=== PATIENT | female | born 1960 | race Caucasian/White ===

== ENCOUNTER 2023-06-22 12:46 | Outpatient (OUT) | payer MEDICARE, SELFPAY ==
--- NOTE | 2023-06-22 15:22 | PM.CN ---
Consult Note: HPI Data of Consult Patient: new to practice Consult date: 06/22/23 Requesting Physician: Chikis May MD Primary Care Provider: Shaikh Reyes MD Consult Narrative Reason for consult: left neck and shoulder pain, left arm pain Narrative: buddy 63yof who presents for evaluation. worsening pain throughout left neck and shoulder, will radiate down left arm. also occasionally on right side. has had shoulder injection recently, which did not provide relief. has undergone >6 weeks of provider directed home exercises, with no relief. currently taking oyxcodone 5mg bid prn, which does help. denies adverse medication side effects. cc:: CC: Chikis May MD Review of Systems ROS Status of ROS 10 or more systems reviewed and unremarkable except as noted in history and below Meds Home Medications and Allergies Home Medications Medication Instructions Recorded Confirmed Type acetaminophen 325 mg tablet 650 mg PO Q6H PRN pain 06/22/23 06/22/23 History (Tylenol) nabumetone 500 mg tablet 500 mg PO BID 06/22/23 06/22/23 History oxycodone 5 mg capsule 5 mg PO BID 06/22/23 06/22/23 History Allergies Allergy/AdvReac Type Severity Reaction Status Date / Time aspirin Allergy Mild unkown Verified 06/22/23 13:31 Exam Narrative Exam Narrative: Psych-alert and oriented x 3.? Attentive and appropriate, constitutionally normal, displays normal mood and affect per situation.? There are no obvious deficits in memory, reasoning, or intellect.? Skin-no obvious rashes, bruising, or erythema noted to the patient's area of pain. Extremities-upper extremities are warm with minimal edema and palpable pulses. Cervical- tenderness to palpation noted in the cervical spine and paraspinal musculature.? Pain is elicited with extension, and lateral rotation of the cervical spine.? Range of motion is slightly diminished due to pain. Facet loading maneuvers are positive bilaterally.? Coordination remains intact.? Gait remains non-antalgic. Assessment and Plan Assessment and Plan (1) Left shoulder pain: (2) Cervicalgia: Plan buddy 63yof who presents for evaluation. failed conservative measures, as noted. given failure to respond to shoulder injection, suspect that she may have cervical spine pathology that is contributing. will have her undergo cervical XR. she is in agreement. medications reviewed. will add gabapentin 300mg tid to her regimen. she expressed understanding. follow up after imaging complete.
== END 2023-06-22 12:47 | disposition home or self-care (01) ==
LOC: PM 12:46
PROVIDERS: PCP Internal Medicine; Visit Provider Anesthesiology
DX: M47.812 Spondylosis without myelopathy or radiculopathy, cervical region (principal); M54.2 Cervicalgia; M25.512 Pain in left shoulder
CPT/HCPCS: 72050; G0463

== ENCOUNTER 2023-06-22 14:17 | Outpatient (OUT) | payer MEDICARE, SELFPAY ==
--- NOTE | 2023-06-22 14:33 | XR_ITS ---
The [place] [id number] Patient Name: BLANCA BUTLER MRN: [id number] date: 1960 Sex: F Assigned Patient Location: [facility] Current Patient Location: Accession/Order Number: [id number] Exam Date: 06/22/2023 14:40 Report Date: 06/23/2023 06:27 At the request of: DAVID WHITE Procedure: XR cervical spine 5V EXAMINATION: XR cervical spine 5V HISTORY: Cervical spondylosis ; left side neck pain COMPARISON: No relevant comparison available. FINDINGS: BONES: Reversal of normal lordotic curvature of C3-C7. Grade 1 anterolisthesis of C3 on 4. Minimal grade 1 retrolisthesis of C5 on C6. Multilevel moderate degenerative facet arthropathy and uncovertebral joint spurring resulting in bone encroachment on the neural foramen, predominantly at C5-6 and C6-7. DISC SPACES: Marked narrowing C5-6, C6-7 with posterior endplate osteophytes. PARASPINOUS: Negative. No paraspinous abnormality is seen. OTHER: Negative. XR/XR cervical spine 5V IMPRESSION: 1. Multilevel degenerative degenerative changes, greatest at C5-6, C6-7. Electronically authenticated by: SLIME CAROLINA Date: 06/23/2023 06:27
== END 2023-06-22 14:18 | disposition home or self-care (01) ==
PROVIDERS: PCP Internal Medicine; Visit Provider Anesthesiology
DX: M47.812 Spondylosis without myelopathy or radiculopathy, cervical region (principal)
CPT/HCPCS: 72050

== ENCOUNTER 2023-06-29 13:13 | Outpatient (OUT) | payer MEDICARE, SELFPAY ==
--- NOTE | 2023-06-29 14:20 | PM.CN ---
Consult Note: HPI Data of Consult Patient: known to practice within the last 3 years Consult date: 06/29/23 Requesting Physician: Chikis May MD Primary Care Provider: Shaikh Reyes MD Consult Narrative Reason for consult: Left neck and shoulder pain Narrative: Pleasant 63yof who presents for assessment. Notes persistence of pain from left neck and shoulder. Cervical imaging reviewed, which is significant for moderate to severe spondylosis at C5-6 and C6-7. Completed physical therapy and continues in provider directed home exercise program >6 weeks, with limited benefit. Has had left shoulder injection previously, with limited benefit. Started gabapentin 100mg, now up to twice daily. Denies adverse medication side effects. cc:: CC: Chikis May MD Review of Systems ROS Status of ROS 10 or more systems reviewed and unremarkable except as noted in history and below Meds Home Medications and Allergies Home Medications Medication Instructions Recorded Confirmed Type acetaminophen 325 mg tablet 650 mg PO Q6H PRN pain 06/22/23 06/22/23 History (Tylenol) nabumetone 500 mg tablet 500 mg PO BID 06/22/23 06/22/23 History oxycodone 5 mg capsule 5 mg PO BID 06/22/23 06/22/23 History TUMERIC QDAY 06/24/23 History Vitamin B-Complex QDAY 06/24/23 History alendronate 35 mg tablet 35 mg PO QWEEK 06/24/23 06/24/23 History allopurinol 100 mg tablet 100 mg PO BID 06/24/23 06/24/23 History ascorbate calcium (vitamin C) 500 500 mg PO DAILY 06/24/23 06/24/23 History mg tablet bromelains 375 mg capsule mg PO 06/24/23 History calcium carb-ergocalciferol (vit tab PO 06/24/23 History D2) 600 mg calcium-200 unit tablet carvedilol 25 mg tablet (Coreg) 25 mg PO Q12H 06/24/23 06/24/23 History cholecalciferol (vitamin D3) 50 50 mcg PO DAILY 06/24/23 06/24/23 History mcg (2,000 unit) tablet (D3 DOTS) cinnamon bark 500 mg capsule 1,000 mg PO DAILY 06/24/23 06/24/23 History (Cinnamon) coenzyme Q10 100 mg capsule (Co 200 mg PO DAILY 06/24/23 06/24/23 History Q-10) cranberry extract 500 mg capsule 500 mg PO DAILY 06/24/23 06/24/23 History diphenhydramine HCl 50 mg capsule 100 mg PO QDAY 06/24/23 06/24/23 History evening primrose oil 500 mg capsule 500 mg PO DAILY 06/24/23 06/24/23 History famotidine 20 mg tablet (Pepcid) 20 mg PO DAILY 06/24/23 06/24/23 History gabapentin 300 mg capsule 300 mg PO TID 06/24/23 06/24/23 History garlic 1,000 mg capsule (garlic 1,000 mg PO DAILY 06/24/23 06/24/23 History oil) ginkgo biloba 120 mg tablet 120 mg PO DAILY 06/24/23 06/24/23 History glucosamine sulfate 1,000 mg 1,000 mg PO DAILY 06/24/23 06/24/23 History capsule grape seed extract 50 mg capsule 100 mg PO DAILY 06/24/23 06/24/23 History green tea leaf extract 250 mg 500 mg PO QDAY 06/24/23 06/24/23 History capsule (Green Tea) hydrochlorothiazide 25 mg tablet 25 mg PO DAILY 06/24/23 06/24/23 History loratadine 10 mg capsule 10 mg PO DAILY 06/24/23 06/24/23 History losartan 100 mg tablet 100 mg PO DAILY 06/24/23 06/24/23 History melatonin 10 mg tablet 20 mg PO DAILY 06/24/23 06/24/23 History multivitamin 1 tab PO DAILY 06/24/23 06/24/23 History omega 7-ypc-jvo-fish oil 1,000 mg 2 cap PO DAILY 06/24/23 06/24/23 History (120 mg-180 mg) capsule (Fish Oil) paroxetine HCl 10 mg tablet (Paxil) 10 mg PO DAILY 06/24/23 06/24/23 History simvastatin 20 mg tablet 20 mg PO DAILY 06/24/23 06/24/23 History vitamin E 200 unit capsule 200 unit PO DAILY 06/24/23 06/24/23 History Allergies Allergy/AdvReac Type Severity Reaction Status Date / Time aspirin Allergy Mild unkown Verified 06/22/23 13:31 Exam Narrative Exam Narrative: Psych-alert and oriented x 3.? Attentive and appropriate, constitutionally normal, displays normal mood and affect per situation.? There are no obvious deficits in memory, reasoning, or intellect.? Skin-no obvious rashes, bruising, or erythema noted to the patient's area of pain. Extremities-upper extremities are warm with minimal edema and palpable pulses. Cervical- tenderness to palpation noted in the cervical spine and paraspinal musculature.? Pain is elicited with extension, and lateral rotation of the cervical spine.? Range of motion is slightly diminished due to pain. Facet loading maneuvers are positive on the left.? Coordination remains intact.? Gait remains non-antalgic. Assessment and Plan Assessment and Plan (1) Cervical spondylosis: Plan Pleasant 63yof who presents for assessment. Failed conservative measures, as noted. Imaging reviewed, as noted. Given symptoms and imaging findings, prudent to attempt diagnostic left C5-6, C6-7 medial branch blocks under fluoroscopic guidance with the intention of proceed to radiofrequency ablation. She is in agreement. Medications reviewed. Advised that she increase gabapentin 100mg to tid, given that she has no side effects. She expressed understanding. Will have her undergo another round of PT twice weekly for 4-6 weeks. Will hold off on cervical MRI for now, but may require this, given her symptoms and xr findings. Follow up after procedure complete.
== END 2023-06-29 13:14 | disposition home or self-care (01) ==
LOC: PM 13:14
PROVIDERS: PCP Internal Medicine; Visit Provider Anesthesiology
DX: M47.812 Spondylosis without myelopathy or radiculopathy, cervical region (principal)
CPT/HCPCS: G0463

== ENCOUNTER 2023-07-30 15:39 | Outpatient (OUT) | payer MEDICARE, SELFPAY ==
--- NOTE | 2023-07-30 15:54 | XR_ITS ---
The [address] [address] Patient Name: BLANCA BUTLER MRN: [id number] date: 1960 Sex: F Assigned Patient Location: [facility] Current Patient Location: Accession/Order Number: [id number] Exam Date: 07/30/2023 16:42 Report Date: 07/31/2023 10:44 At the request of: SHAIKH REYES Procedure: XR shoulder LT min 2V EXAM: XR hip RT min 2V, XR shoulder LT min 2V HISTORY: Right Hip Instability M25.351 COMPARISON: None. TECHNIQUE: AP view of the pelvis was obtained along with AP and lateral views of the right hip. 3 views of the left shoulder were obtained. FINDINGS/IMPRESSION: Pelvis and right hip: 1. There is right hip arthroplasty. 2. There is moderate left hip joint osteoarthritis. 3. There is moderate bilateral sacroiliac joint osteoarthritis. 4. Degenerative changes are seen at the lower lumbar spine. Left shoulder: 1. [id number] apposition is seen at the left glenohumeral joint with subchondral cystic changes consistent with advanced osteoarthritis. 2. High riding humeral head is seen suggestive of rotator cuff tendinopathy/tear. 3. There is subtle subchondral lucency at the superior aspect of the left humeral head. This may be correlated for possible avascular necrosis. Electronically authenticated by: OZ BRITTON Date: 07/31/2023 10:44
--- NOTE | 2023-07-30 16:30 | XR_ITS ---
The [address] [address] Patient Name: BLANCA BUTLER MRN: [id number] date: 1960 Sex: F Assigned Patient Location: [facility] Current Patient Location: Accession/Order Number: [id number] Exam Date: 07/30/2023 16:42 Report Date: 07/31/2023 10:44 At the request of: SHAIKH REYES Procedure: XR hip RT min 2V EXAM: XR hip RT min 2V, XR shoulder LT min 2V HISTORY: Right Hip Instability M25.351 COMPARISON: None. TECHNIQUE: AP view of the pelvis was obtained along with AP and lateral views of the right hip. 3 views of the left shoulder were obtained. FINDINGS/IMPRESSION: Pelvis and right hip: 1. There is right hip arthroplasty. 2. There is moderate left hip joint osteoarthritis. 3. There is moderate bilateral sacroiliac joint osteoarthritis. 4. Degenerative changes are seen at the lower lumbar spine. Left shoulder: 1. Moku-bt-jkzr apposition is seen at the left glenohumeral joint with subchondral cystic changes consistent with advanced osteoarthritis. 2. High riding humeral head is seen suggestive of rotator cuff tendinopathy/tear. 3. There is subtle subchondral lucency at the superior aspect of the left humeral head. This may be correlated for possible avascular necrosis. Electronically authenticated by: OZ BRITTON Date: 07/31/2023 10:44
== END 2023-07-30 15:40 | disposition home or self-care (01) ==
LOC: RAD 15:43
PROVIDERS: PCP Internal Medicine; Visit Provider Internal Medicine
DX: M25.351 Other instability, right hip (principal); M25.512 Pain in left shoulder; Z96.641 Presence of right artificial hip joint; M16.12 Unilateral primary osteoarthritis, left hip; M47.816 Spondylosis without myelopathy or radiculopathy, lumbar region
CPT/HCPCS: 73030; 73502

== ENCOUNTER 2023-08-20 14:21 | Outpatient (OUT) | payer MEDICARE, SELFPAY ==
--- NOTE | 2023-08-20 | MR_ITS ---
The [address] [address] Patient Name: BLANCA BUTLER MRN: [id number] date: 1960 Sex: F Assigned Patient Location: MRI Current Patient Location: MRI Accession/Order Number: [id number] Exam Date: 08/20/2023 15:26 Report Date: 08/20/2023 16:59 At the request of: SHAIKH REYES Procedure: MR shoulder LT wo con MR shoulder LT wo con, 08/20/2023 3:26 PM EST INDICATION: Left shoulder pain COMPARISON: X-ray of the left shoulder dated 07/30/2023 TECHNIQUE: Multiplanar and multisequential MR images of the left shoulder were obtained without contrast. FINDINGS: There are mild hypertrophic degenerative changes of AC joint. There is no os acromiale. No Hill-Sachs is noted. No acute fracture or dislocation is noted. The quadrilateral space and supraspinous notch are unremarkable. There is complete tear of supraspinatus and infraspinatus with retraction of tendon to the level of glenoid. The T2 prolongation within the insertional portions of subscapularis may suggest tendinosis. There is full-thickness partial width tear of superior portion of the subscapularis measuring approximately 1.2 cm. The interarticular portion of long head of biceps could not be visualized and most likely torn and retracted tendon within the bicipital canal. The teres minor is unremarkable. Significant muscle atrophy of supraspinatus infraspinatus and subscapularis is noted giving the limitation of the [id number]. The labrum and left glenohumeral joint show severe degenerative changes.. There is increased intra articular joint effusion with extension to the subacromial subdeltoid bursa. There is subcoracoid bursitis. MR/MR shoulder LT wo con IMPRESSION: Severe degenerative changes of the left glenohumeral joint. Complete tear of the supraspinatus and infraspinatus and long head of biceps. High-grade partial tear of the subscapularis. Significant atrophy of supraspinatus, infraspinatus and subscapularis. Electronically authenticated by: AMAURY BE Date: 08/20/2023 16:59
== END 2023-08-20 14:22 | disposition home or self-care (01) ==
LOC: MRI 14:21
PROVIDERS: PCP Internal Medicine; Visit Provider Internal Medicine
DX: M25.512 Pain in left shoulder (principal); M75.122 Complete rotator cuff tear or rupture of left shoulder, not specified as traumatic
CPT/HCPCS: 73221

== ENCOUNTER 2023-11-09 09:41 | Day surgery (SDC) | payer MEDICARE, SELFPAY ==
--- OUTSIDE RECORDS SUMMARY | 2023-11-09 09:45 | XMS_ITS | CCD ---
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 Name Role Phone UNKNOWN, PHYSICIAN Primary Care Unavailable UNKNOWN, PHYSICIAN Referring Unavailable HERMINIO ROBERTS Admitting Unavailable HERMINIO ROBERTS Attending Unavailable HERMINIO ROBERTS Surgeon Unavailable ME Procedure Practitioner Unavailab SHAIKH Gerson Garcia Consulting Unavailable REYES, WHITFIELD H Attending Unavailable REYES, WHITFIELD H Admitting Unavailable GIOVANIWKEZIAD, WHITFIELD H Primary Care Unavailable REYES, WHITFIELD H Attending Unavailable GIOVANIWWAD, WHITFIELD H Admitting Unavailable ZIEBBETTY, DR JOVANNI Ashraf Consulting Unavailable FAWWAD, WHITFIELD H Primary Care Unavailable REYES, WHITFIELD H Consulting Unavailable REYES, WHITFIELD H Consulting Unavailable REYES, WHITFIELD H Attending Unavailable FAWWAD, WHITFIELD H Admitting Unavailable FAWWAD, WHITFIELD H Primary Care Unavailable LUCITAD, WHITFIELD H Primary Care Unavailable ANAMARIA, DR MARIA ANTONIA Toro Admitting Unavailable WEST, DR MARIA ANTONIA Toro Consulting Unavailable WEST, DR MARIA ANTONIA Toro Attending Unavailable FAWWAD, WHITFIELD H Primary Care Unavailable WEST, DR MARIA ANTONIA Toro Attending Unavailable WEST, DR MARIA ANTONIA Toro Admitting Unavailable WEST, DR MARIA ANTONIA Toro Consulting Unavailable CAITY, DR JOVANNI Ashraf Consulting Unavailable REYES, WHITFIELD H Primary Care Unavailable WEST, DR MARIA ANTONIA Toro Attending Unavailable ANAMARIA, DR MARIA ANTONIA Toro Admitting Unavailable WEST, DR MARIA ANTONIA Toro Consulting Unavailable CAITY, DR JOVANNI Ashraf Consulting Unavailable REYES, WHITFIELD H Primary Care Unavailable WEST, DR MARIA ANTONIA Toro Attending Unavailable ANAMARIA, DR MARIA ANTONIA Toro Admitting Unavailable WEST, DR MARIA ANTONIA Toro Consulting Unavailable FAUSTINOEBBETTY, DR JOVANNI Ashraf Consulting Unavailable SHAIKH Gerson CHAMBERS Primary Care Unavailable ANAMARIA, DR MARIA ANTONIA Troo Attending Unavailable ANAMARIA, DR MARIA ANTONIA Toro Admitting Unavailable DR MARIA ANTONIA CONRAD V Consulting Unavailable SHAIKH Gerson CHAMBERS Attending Unavailable SHAIKH Gerson CHAMBERS Admitting Unavailable DR JOVANNI MILLAN Consulting Unavailable SHAIKH Gerson CHAMBERS Primary Care Unavailable SHAIKH Gerson CHAMBERS Consulting Unavailable SHAIKH CHAMBERS Attending Unavailable Allergies Allergy Classification Reported Allergen(s) Allergy Type Date of Onset Reaction(s) Facility Aspirin (1 source) Aspirin; Translations: [ASPIRIN] Drug Allergy 12-26-2020 [facility] Repository (1 source) Amino Acids Drug Allergy [facility] Repository (1 source) Aspirin Drug Allergy [facility] Repository Problems Active Problems Problem Classification Problem Date Documented Da te Episodic/Chronic Diabetes mellitus without complication (5 sources) Type 2 diabetes mellitus without complications; Translations: [TYPE 2 DM WITHOUT COMPLICATIONS] Onset: 2 Chronic Disorders of lipid metabolism (1 source) Hyperlipidemia, unspecified; Translations: [HYPERLIPIDEMIA UNSPECIFIED] Onset: 3 Chronic Essential hypertension (1 source) Essential (primary) hypertension; Translations: [ESSENTIAL PRIMARY HYPERTENSION] Onset: 3 Chronic Gout and other crystal arthropathies (4 sources) Gout, unspecified; Translations: [GOUT UNSPECIFIED] Onset: 3 Chronic Osteoarthritis (3 sources) Primary osteoarthritis, left shoulder; Translations: [Primary osteoarthritis, right shoulder] Onset: 3 Chronic Other aftercare (4 sources) Encounter for surgical aftercare following surgery on the circulatory system; Translations: [ENC SURG AFTRCARE FLW SURG CIRC SYS] Onset: 3 Episodic Other non-traumatic joint disorders (4 sources) Pain in right knee; Translations: [PAIN IN RIGHT KNEE] Onset: 3 Episodic Other non-traumatic joint disorders (1 source) Pain in left knee; Translations: [PAIN IN LEFT KNEE] Onset: 3 Episodic Other non-traumatic joint disorders (1 source) Pain in right hip; Translations: [PAIN IN RIGHT HIP] Onset: 3 Episodic Other non-traumatic joint disorders (1 source) Pain in right shoulder; Translations: [PAIN IN RIGHT SHOULDER] Onset: 3 Episodic Other non-traumatic joint disorders (1 source) Pain in left shoulder; Translations: [PAIN IN LEFT SHOULDER] Onset: 3 Episodic Phlebitis; thrombophlebitis and thromboembolism (2 sources) Phlebitis and thrombophlebitis of superficial vessels of right lower extremity; Translations: [Phlebitis and thrombophlebitis of superficial vessels of left lower extremity] Onset: 3 Episodic Residual codes; unclassified (1 source) Localized edema; Translations: [LOCALIZED EDEMA] Onset: 3 Episodic Varicose veins of lower extremity (5 sources) Varicose veins of bilateral lower extremities with pain; Translations: [VARICOSE VNS SARITHA LOW EXTREM W/PAIN] Onset: 3 Episodic Past or Other Problems Problem Classification Problem Date Documented Da te Episodic/Chronic Screening and history of mental health and substance abuse codes (4 sources) Personal history of nicotine dependence; Translations: [PERSONAL HISTORY OF NICOTINE DEPEND] Onset: 07-21-2022 Episodic Results Test Name Value Interpretation Reference Range Facility VC CONSULT FOLLOWUPon 2022 VC CONSULT FOLLOWUP Patient: BLANCA ENRIQUEZ Exam Date: 03/03/2023 : 1960 Gender:F Ordering : DR MARIA ANTONIA CONRAD M.D. Admission #: [id number] Family : Order #: [id number] CLICK HERE TO VIEW EXAM RADIOLOGY REPORT PROCEDURE: VEIN CENTER CONSULTATION FOLLOWUP VEIN CENTER - OFFICE VISIT FOLLOW UP COMPARISON: VC CONSULT FOLLOWUP, 02/09/2023. PROGRESS NOTES: The patient reports no significant problems following intravenous laser ablation of the right great saphenous vein. The patient did not require oral analgesics. The patient did wear her compression stockings. The patient has followed our recommendations to walk 20-30 minutes once or twice per day since the procedure. The patient reports some mild improvement in her initial presenting symptoms. The patient would like to advance to micro foam chemical ablation of incompetent varicose veins this time. Review of the ultrasound performed the same day demonstrates occlusive thrombus extending throughout the treated right great saphenous vein with heat induced thrombus 1.5 cm from the saphenofemoral junction. No deep vein thrombus. The patient expressed a desire to proceed with treatment of incompetent varicose veins with micro foam chemical ablation. The patient would not like intravenous laser ablation of the right small or left anterior accessory saphenous vein at this time. IMPRESSION: 1. Successful ablation of the right great saphenous vein 2. Persistent incompetent bilateral varicose veins PLAN: Micro foam chemical ablation left leg incompetent varicose veins Nurse notes, history and physical were reviewed and confirmed, see attached forms. The nurse was present throughout the physical exam and consultation Dictated by: Maria Antonia Conrad MD on 03/03/2023 at 13:44 Approved by: Maria Antonia Conrad MD on 03/03/2023 at 13:46 Normal [facility] VC EXT VENOUS RT LIMITEDon 0 03-03-2023 VC EXT VENOUS RT LIMITED Patient: BLANCA ENRIQUEZ. Exam Date: 03/03/2023 : 1960 Gender:F Ordering : DR MARIA ANTONIA CONRAD M.D. Admission #: [id number] Family : Order #: [id number] CLICK HERE TO VIEW EXAM RADIOLOGY REPORT PROCEDURE: VEIN CENTER EXTREMITY VENOUS RIGHT LIMITED COMPARISON: None. INDICATIONS: Phlebitis of superficial veins of lower extremity I80.01 TECHNIQUE: Lower extremity huddleston scale and Duplex Doppler evaluation of the deep venous system from the inguinal ligament through the calf veins. FINDINGS: REGION: Right lower extremity. THROMBI: Negative for DVT. Heat induced thrombus visualized 1.5 cm from the SFJ. The heat induced thrombus extends from groin to proximal calf. COMPRESSIBILITY: Non-compressible segments corresponding to thrombus. FLOW: Absent flow corresponding to thrombus OTHER: *Exam performed in accordance with [facility] practice guidelines- Peripheral venous ultrasound, December 29, 2009. CONCLUSION: Post ablation occlusion the right great saphenous vein with heat induced thrombus 1.5 cm from the saphenofemoral junction Dictated by: Maria Antonia Conrad MD on 03/03/2023 at 13:09 Approved by: Maria Antonia Conrad MD on 03/03/2023 at 13:10 Normal [facility] VC ENDOVENOUS ABL 1ST V RTon 02-25-2023 VC ENDOVENOUS ABL 1ST V RT Patient: BLANCA ENRIQUEZ. Exam Date: 02/25/2023 : 1960 Gender:F Ordering : DR MARIA ANTONIA CONRAD M.D. Admission #: [id number] Family : Order #: [id number] CLICK HERE TO VIEW EXAM RADIOLOGY REPORT PROCEDURE: VEIN CENTER ENDOVENOUS ABLATION FIRST VEIN RIGHT COMPARISON: VC VENOUS REFLUX SARITHA LMT, 01/08/2023. INDICATIONS: Pain co-occurrent and due to varicose veins of bilateral legs I83.813 OPERATIVE REPORT: The risks and benefits of the procedure had been previously discussed, and were rediscussed at length. Informed written consent was obtained by and Darnell Sosa assisted. Time out procedure was performed. The right lower extremity was prepared and draped in the usual sterile fashion to allow knee flexion in the sterile field. Duplex ultrasound probe was draped in a sterile cover, sterile transmission gel was used. Venous mapping was performed with the areas of dilation and large tributaries marked. The total length was 40 cm from the entry upper calf to 3 cm below the saphenofemoral junction. The diameter of the greater saphenous vein ranged from 8 mm. A 30 gauge needle and 1% buffered lidocaine was used to anesthetize the entry site. A 4 mm incision was made with a scalpel and the saphenous vein was entered percutaneously under direct ultrasound guidance with a micropuncture set, a single stick was successful in gaining access. A micro-guide wire was inserted and the needle removed. A micro-set including a dilator was inserted over the microwire and the needle and dilator were removed. A 0.018 guide wire was inserted through the micro-set and threaded through the saphenous vein to the saphenofemoral junction. The dilator was removed and an introducer sheath was inserted over the wire until the end of the sheath entered the saphenofemoral junction. The dilator and wire were removed and the 600 micron fiber was introduced and placed and positioned so that it extended beyond the sheath and was 3 cm peripheral to the saphenofemoral femoral junction. Final position of the fiber was determined by ultrasound guidance and duplex imaging. Tumescent anesthetic was delivered by ultrasound guidance. Three hundred cc of fluid was delivered along the entire course of the saphenous vein. The solution consisted of 500 cc of normal saline with 20mL of 1% lidocaine and 10 mL of sodium bicarbonate. A final positioning check was made. The energy source was turned on by means of the foot pedal and the fiber and sheath were withdrawn. The total number of Joules delivered was 2057. The laser was active for 257 seconds under continuous pulse, average laser use of 8 J. Laser start time 2:27 p.m. February 25, 2023. Laser stop time 2:32 p.m. February 25, 2023. A duplex ultrasound revealed compressibility and flow at the saphenofemoral junction immediately after the procedure. Hemostasis at the access site was achieved. The skin incision of the saphenous vein was closed with a 4 x 4. A compression stocking was applied. Postop instructions were given. A follow up appointment was recommended and scheduled. The patient tolerated the procedure well and was discharged in good condition. CONCLUSION: 1. Technically successful endovenous laser ablation of the right great saphenous vein. Dictated by: Jovanni Millan M.D. on 02/25/2023 at 14:59 Approved by: Jovanni Millan M.D. on 02/25/2023 at 15:01 Normal [facility] VC CONSULT FOLLOWUPon 2022 VC CONSULT FOLLOWUP Patient: BLANCA ENRIQUEZ Exam Date: 02/09/2023 : 1960 Gender:F Ordering : DR MARIA ANTONIA CONRAD M.D. Admission #: [id number] Family : Order #: [id number] CLICK HERE TO VIEW EXAM RADIOLOGY REPORT PROCEDURE: VEIN CENTER CONSULTATION FOLLOWUP VEIN CENTER - OFFICE VISIT FOLLOW UP COMPARISON: None. PROGRESS NOTES: The patient reports areas of mild bruising and skin irritation, along with slight improvement in leg symptoms. There has been slight interval reduction in varicosities. The patient has followed our recommendations to walk 20-30 minutes once or twice per day since the procedure. Physical exam edema straits small areas of mild bruising. Persistent edema and dilated varicose veins. Persistent varicosities are identified along the left leg. Review of the ultrasound performed the same day demonstrates occlusive thrombus extending throughout the treated vein, see separate report, consistent with a successful ablation. No thrombus extending into or beyond the saphenofemoral junction. The patient expressed a desire to proceed with treatment of remaining incompetent and dilated superficial veins. The patient was informed that treatment was a process and would require several procedures/sessions. IMPRESSION: 1. Successful ablation of the left great saphenous vein 2. Persistent incompetent veins and bilateral lower extremity symptoms PLAN: Endovenous laser ablation of right great saphenous vein Nurse notes, history and physical were reviewed and confirmed, see attached forms. The nurse was present throughout the physical exam and consultation Dictated by: Jovanni Millan M.D. on 02/09/2023 at 11:35 Approved by: Jovanni Millan M.D. on 02/09/2023 at 11:43 Normal [facility] VC EXT VENOUS LT LIMITEDon 0 02-09-2023 VC EXT VENOUS LT LIMITED Patient: BLANCA ENRIQUEZ Exam Date: 02/09/2023 : 1960 Gender:F Ordering : DR MARIA ANTONIA CONRAD M.D. Admission #: [id number] Family : Order #: [id number] CLICK HERE TO VIEW EXAM RADIOLOGY REPORT PROCEDURE: VEIN CENTER EXTREMITY VENOUS LEFT LIMITED COMPARISON: None. INDICATIONS: Phlebitis and thrombophlebitis of superficial veins of left lower extremity I80.02 TECHNIQUE: Lower extremity huddleston scale and Duplex Doppler evaluation of the deep venous system from the inguinal ligament through the calf veins. FINDINGS: REGION: Left lower extremity. THROMBI: Negative for DVT. Heat induced thrombus visualized 1.7 cm from the saphenofemoral junction and is seen to mid lower leg. COMPRESSIBILITY: Non-compressible AND partially compressible segments. FLOW: Areas of no flow. OTHER: CONCLUSION: 1. Successful post ablation occlusion of left great saphenous vein. Dictated by: Jovanni Millan M.D. on 02/09/2023 at 11:34 Approved by: Jovanni Millan M.D. on 02/09/2023 at 11:35 Normal [facility] VC ENDOVENOUS ABL 1ST V LTon 02-02-2023 VC ENDOVENOUS ABL 1ST V LT Patient: BLANCA ENRIQUEZ Exam Date: 02/02/2023 : 1960 Gender:F Ordering : DR MARIA ANTONIA CONRAD M.D. Admission #: [id number] Family : Order #: [id number] CLICK HERE TO VIEW EXAM RADIOLOGY REPORT PROCEDURE: VEIN CENTER ENDOVENOUS ABLATION FIRST VEIN LEFT COMPARISON: VC VENOUS REFLUX SARITHA LMT, 01/08/2023. INDICATIONS: Pain co-occurrent and due to varicose veins of bilateral legs I83.813 OPERATIVE REPORT: The risks and benefits of the procedure had been previously discussed, and were rediscussed at length. Informed written consent was obtained by and Darnell espinal. Time out procedure was performed. The left lower extremity was prepared and draped in the usual sterile fashion to allow knee flexion in the sterile field. Duplex ultrasound probe was draped in a sterile cover, sterile transmission gel was used. Venous mapping was performed with the areas of dilation and large tributaries marked. The total length was 48 cm from the entry mid calf to 3 cm below the saphenofemoral junction. The diameter of the greater saphenous vein ranged from 8 mm. A 30 gauge needle and 1% buffered lidocaine was used to anesthetize the entry site. A 4 mm incision was made with a scalpel and the saphenous vein was entered percutaneously under direct ultrasound guidance with a micropuncture set, a single stick was successful in gaining access. A micro-guide wire was inserted and the needle removed. A micro-set including a dilator was inserted over the microwire and the needle and dilator were removed. A 0.018 guide wire was inserted through the micro-set and threaded through the saphenous vein to the saphenofemoral junction. The dilator was removed and an introducer sheath was inserted over the wire until the end of the sheath entered the saphenofemoral junction. The dilator and wire were removed and the 600 micron fiber was introduced and placed and positioned so that it extended beyond the sheath and was 3 cm peripheral to the saphenofemoral femoral junction. Final position of the fiber was determined by ultrasound guidance and duplex imaging. Tumescent anesthetic was delivered by ultrasound guidance. Four and 25 cc of fluid was delivered along the entire course of the saphenous vein. The solution consisted of 500 cc of normal saline with 20mL of 1% lidocaine and 10 mL of sodium bicarbonate. A final positioning check was made. The energy source was turned on by means of the foot pedal and the fiber and sheath were withdrawn. The total number of Joules delivered was 2614. The laser was active for December 11, 2026 seconds under continuous pulse, average laser use of 8 J. Laser start time 1:41 p.m. February 02, 2023. Laser stop time 1:48 p.m. February 02, 2023. A duplex ultrasound revealed compressibility and flow at the saphenofemoral junction immediately after the procedure. Hemostasis at the access site was achieved. The skin incision of the saphenous vein was closed with a 4 x 4. A compression stocking was applied. Postop instructions were given. A follow up appointment was recommended and scheduled. The patient tolerated the procedure well and was discharged in good condition. CONCLUSION: 1. Technically successful endovenous laser ablation of the left great saphenous vein. Dictated by: Jovanni Millan M.D. on 02/02/2023 at 14:15 Approved by: Jovanni Millan M.D. on 02/02/2023 at 14:17 Normal [facility] VC COMP CONSULTATIONon 01-08 VC COMP CONSULTATION Patient: BLANCA ENRIQUEZ Exam Date: 01/08/2023 : 1960 Gender:F Ordering : DR MARIA ANTONIA CONRAD M.D. Admission #: [id number] Family : Order #: [id number] CLICK HERE TO VIEW EXAM RADIOLOGY REPORT PROCEDURE: VC VEIN CENTER CONSULTATION VEIN CENTER - OFFICE VISIT INITIAL COMPARISON: None. PROGRESS NOTES: 62-year-old female who presents with a 1 year history of lower extremity pain swelling and varicose veins. The patient reports bilateral moderate to severe leg pain rating the pain as an 8 on a scale of 1-10. The patient complains persistent throbbing and heaviness in her legs. The patient's symptoms are exacerbated by leg dependency and are partially relieved by rest, leg elevation, support stockings which she has worn for more than 5 years and over the counter Tylenol. The patient also complains of subcutaneous edema. The patient denies any signs and symptoms to suggest arterial ischemia. The patient describes a family history significant for varicose veins in her mother. Hypertension in her mother. Heart disease in her father. . The patient has a 40 pack year history of smoking, discontinuing 2 years ago. The patient has not drink alcohol for 10 years. No illicit or prescription drug issues. Prior surgical history significant for right hip replacement, pinning of the right ankle and hysterectomy. The patient's medical history is significant for lower extremity edema, diabetes, hypertension, gout, hyperlipidemia send osteoporosis. No history of deep venous thrombus or pulmonary embolus. See separate history and physical for medication list. No prior treatment for varicose or spider veins. Nursing notes were reviewed. After history and physical exam I discussed at length the pathophysiology of venous hypertension and possible treatments, therapies and strategies available. We discussed at length the importance of elevating the lower extremities above the level of the heart, increased physical activity and compression stocking use. Ultrasound venous reflux study performed the same day was discussed at length with the patient. The report demonstrates moderate right and moderate to severe great saphenous, mild to moderate right small saphenous [id number] left anterior accessory saphenous vein venous insufficiency dilatation period bilateral saphenofemoral junction reflux. Bilateral incompetent varicose veins. Left incompetent perforating veins. Suspected left popliteal cyst and knee joint effusion PHYSICAL EXAM: The right leg demonstrates moderate scattered varicose reticular and spider veins. Mild hemosiderin staining distal lower leg and ankle. Mild subcutaneous edema. The left leg demonstrates moderate scattered varicose reticular and spider veins. Mild hemosiderin staining distal lower leg and ankle. Mild subcutaneous edema. Both thighs, legs and feet were symmetrically warm to the touch. Good posterior tibial and dorsalis pedis pulses were present bilaterally. IMPRESSION: 1. Bilateral great saphenous, right small saphenous and left anterior accessory saphenous vein venous insufficiency with dilatation and saphenofemoral junction reflux 2. Moderate bilateral incompetent lower extremity varicose veins 3. Mild bilateral lower extremity subcutaneous edema hemosiderin staining 4. No definite flow significant arterial disease 5. CEAP: C4a, Ep, Asp, Pr PLAN: 1. Endovenous laser ablation left great saphenous vein followed by right great saphenous vein followed by right small saphenous vein followed by left anterior accessory saphenous vein continued surveillance of the right anterior accessory saphenous vein in a 1 year interval 2. Micro foam chemical ablation bilateral incompetent varicose veins 3. Bilateral injection sclerotherapy of reticular and spider veins 4. Long-term use of bilateral thigh-high 20 to 30 mm compression stockings 5. Elevated legs and increased physical activity for symptomatic relief Nurse notes, history and physical were reviewed and confirmed, see attached forms. The nurse was present throughout the physical exam and consultation Dictated by: Maria Antonia Conrad MD on 01/08/2023 at 14:56 Approved by: Maria Antonia Conrad MD on 01/08/2023 at 15:14 Normal [facility] VC VENOUS REFLUX SARITHA LMTon 0 01-08-2023 VC VENOUS REFLUX SARITHA LMT Patient: BLANCA ENRIQUEZ Exam Date: 01/08/2023 : 1960 Gender:F Ordering : DR MARIA ANTONIA CONRAD M.D. Admission #: [id number] Family : Order #: [id number] CLICK HERE TO VIEW EXAM RADIOLOGY REPORT PROCEDURE: VEIN CENTER ULTRASOUND VENOUS REFLUX BILATERAL LIMTED COMPARISON: None. INDICATIONS: Pain co-occurrent and due to varicose veins of bilateral legs TECHNIQUE: Duplex imaging of the lower extremity to assess the deep and superficial venous system for the presence of deep or superficial venous incompetence and to document the location and severity of disease. The study includes evaluation of the great saphenous vein (GSV), anterior accessory saphenous vein (AASV) and small saphenous vein (SSV). Patient scanned in reverse Trendelenburg and standing. FINDINGS: RIGHT LOWER EXTREMITY: Saphenofemoral Junction Reflux: Yes 10.1mm 2.4 sec GSV: Diam (mm) Reflux/ Time (sec) Proximal Thigh 7.5 Yes 1.9 Mid Thigh 7.2 Yes 2.8 Distal Thigh 5.7 Yes 1.8 Prox Calf 5.9 Yes 1.7 Mid Calf 4.4 Yes 1.7 Saphenopopliteal Junction Reflux: 8.3mm Yes 3.0 SSV: Proximal Calf 6.6 Yes 1.5 Mid Calf 4.0 Yes 1.4 AASV: Proximal Thigh 6.3 Yes 0.8 Mid Thigh 3.4 Yes 0.4 Distal Thigh Thrombi: No acute or chronic thrombus visualized Compressibility: Normal Flow: Normal Preforator: Dist/med calf 5.5mm with 0s reflux. Mid/med calf 4.0mm with 0s reflux. Tech Note: Incompetent GSV, AASV, and SSV. Patent varicose vein dist/med calf 3.7mm with 0.9s reflux. Patent varicose vein prox/med calf 5.9mm with 2.1s reflux. Patent varicose vein dist/med calf 3.6mm with 1.2s reflux. Patent varicose vein dist/med thigh 4.3mm with 0.5s reflux. LEFT LOWER EXTREMITY: Saphenofemoral Junction Reflux: Yes 11.2 mm 2.1 sec GSV: Diam (mm) Reflux/Time (sec) Proximal Thigh 7.9 Yes 3.6 Mid Thigh 5.7 Yes 1.7 Distal Thigh 6.6 Yes 2.1 Prox Calf 4.4 Yes 1.1 Mid Calf 3.5 Yes 1.2 Saphenopopliteal Junction Relux: 5.8 mm Yes 1.2 SSV: Proximal Calf 2.9 No Mid Calf 3.2 No AASV: Proximal Thigh 6.8 Yes 1.8 Mid Thigh 6.5 Yes 1.5 Distal Thigh Thrombi: No acute or chronic thrombus visualized Compressibility: Normal Flow: Normal Senior Etl Developer: Dist/med calf 3.7 mm with 2.4s reflux. Prox/med calf 3.5mm with 0s reflux. Tech Note: Incompetent GSV, AASV, and SSV. Hypoechoic avascular structure pop fossa measuring 7.0 x 3.1 x 3.0 cm and a second hypoechoic avascular structure wraps around anterior and superior to knee measuring 6.1 x 1.2 x 6.2 cm. Patent varicose vein dist/med calf 5.2mm with 1.9s reflux. Patent varicose vein 3.7mm with 1.3s reflux. Patent varicose vein 4.4mm with 1.3s reflux. CONCLUSION: 1. 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 Mild to moderate right small saphenous vein venous insufficiency with dilatation 3. Mild right and moderate left anterior accessory saphenous vein venous insufficiency with dilatation 4. 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 Left suprapatellar fluid collection likely joint effusion and popliteal lesion likely a cyst Dictated by: Maria Antonia Conrad MD on 01/08/2023 at 13:50 Approved by: Maria Antonia Conrad MD on 01/08/2023 at 13:52 Normal [facility] XR KNEE SARITHA 4V or >on 2022 XR KNEE SARITHA 4V or > EXAMINATION: XR KNEE SARITHA 4V or > HISTORY: Pain of bilateral knee regions COMPARISON: XR knee left 07/24/2011 FINDINGS: RIGHT FINDINGS: BONES: Marked narrowing of the medial joint space with subchondral cysts and sclerosis. Large periarticular degenerative osteophytes involving all 3 compartments. SOFT TISSUES: No visible soft tissue swelling. OTHER: Negative. LEFT FINDINGS: BONES: Marked narrowing of the medial joint space with subchondral cysts and sclerosis. Large periarticular degenerative osteophytes involving all 3 compartments. SOFT TISSUES: Large 2.6 cm calcification posterior to the knee, heterotopic bone formation from remote injury versus flabella. OTHER: Negative. IMPRESSION: RIGHT CONCLUSION: Marked degenerative joint disease. No acute bone abnormality. LEFT CONCLUSION: Marked degenerative joint disease. No acute bone abnormality. Electronically authenticated by: JOVANNI MILLAN Date: 2022-12-17 16:24 Normal [facility] XR SHOULDER SARITHA 2V or >on XR SHOULDER SARITHA 2V or > EXAMINATION: XR SHOULDER SARITHA 2V or > HISTORY: Bilateral shoulder joint pain COMPARISON: No relevant comparison available. FINDINGS: RIGHT FINDINGS: BONES: High riding humeral head, likely contacting the undersurface of the acromion process. Degenerative osteophytes along the inferior articular margin of the humeral head. No fracture or dislocation. SOFT TISSUES: No visible soft tissue swelling. OTHER: Negative. LEFT FINDINGS: BONES: Marked narrowing of the glenohumeral joints with likely kvtw-zd-newa contact. Degenerative osteophyte along the inferior articular margin of the humeral head and glenoid. Suspected narrowing of the acromial-humeral interval. SOFT TISSUES: No visible soft tissue swelling. OTHER: Negative. IMPRESSION: RIGHT CONCLUSION: Marked degenerative joint disease and suspected disruption of the superior rotator cuff. LEFT CONCLUSION: Marked degenerative joint disease, and likely rotator cuff injury or disruption. Electronically authenticated by: JOVANNI MILLAN Date: 2022-12-17 16:32 Normal [facility] CBC AUTO DIFFon 12-15-2022 BASO # 0.1 103/ul Normal 0.0-0.1 [facility] Comment on above: Performed By: #### C BC ####[facility] [address] [place] [address]DrJudy Napoles Basophils/100 WBC (Bld) 0.8 % Normal 0.2-2.0 [facility] Comment on above: Performed By: #### C BC ####[facility] [address]xs[address] [place] [address]DrJudy Napoles EO # 0.2 103/ul Normal 0.0-0.7 [facility] Comment on above: Performed By: #### C BC ####[facility] Ecbibs[address]ms[address] [place] [address]Dr. Sarah Napoles Eosinophils/100 WBC (Bld) 2.3 % Normal 0.9-7.0 [facility] Comment on above: Performed By: #### C BC ####[facility] [address] [place] [address]Dr. Sarah Napoles Erythrocyte distribution width (RBC) [Ratio] 13.2 % Normal 11.0-15.0 [facility] Comment on above: Performed By: #### C BC ####[facility] [address]xwuwie[address] [place] [address]Dr. Sarah Napoles Hematocrit (Bld) [Volume fraction] 34.3 % Critically low 36.0-48.0 [facility] Comment on above: Performed By: #### C BC ####[facility] [address] [place], [place] [address]Dr. Sarah Napoles Hemoglobin (Bld) [Mass/Vol] 11.5 g/dL Critically low 12.0-16.0 [facility] Comment on above: Performed By: #### C BC ####[facility] V[address] [place], [place] [address]Dr. Sarah Napoles IG # 0.02 10e3/ul Normal 0.00-0.03 [facility] Comment on above: Performed By: #### C BC ####[facility] Funx[address]we[address] [place], [place] [address]Dr. Sarah Napoles IG % 0.2 % Normal 0.0-0.5 [facility] Comment on above: Performed By: #### C BC ####[facility] M[address] [place], [place] [address]Dr. Sarah Napoles LYMPH # 1.8 103/ul Normal 1.2-3.8 [facility] Comment on above: Performed By: #### C BC ####[facility] M[address] [place], [place] [address]Dr. Sarah Napoles Lymphocytes/100 WBC (Bld) 19.8 % Critically low 20.5-60.0 [facility] Comment on above: Performed By: #### C BC ####[facility] [address]torv[address] [place] [address]Dr. Sarah Dony MANUAL DIFF REQ NO Normal [facility] Comment on above: Performed By: #### C BC ####[facility] [address] [place] [address]Dr. Sarah Napoles MCH (RBC) [Entitic mass] 32.2 pg Normal 26.7-34.0 [facility] Comment on above: Performed By: #### C BC ####[facility] Y[address]fdettd[address] [place] [address]Dr. Sarah Dony MCHC (RBC) [Mass/Vol] 33.5 g/dL Normal 29.9-35.2 [facility] Comment on above: Performed By: #### C BC ####[facility] Wuivtvpujl[address] [place], [place] [address]Dr. Charlinecassie Napoles MCV (RBC) [Entitic vol] 96.1 fL Normal 81.0-99.0 [facility] Comment on above: Performed By: #### C BC ####[facility] X[address] [place], [place] [address]Dr. Sarah Dony MONO # 0.8 103/ul Normal 0.3-0.8 [facility] Comment on above: Performed By: #### C BC ####[facility] [address] [place], [place] [address]Dr. Charlinecassie Napoles Monocytes/100 WBC (Bld) 9.5 % Normal 1.7-12.0 [facility] Comment on above: Performed By: #### C BC ####[facility] [address] [place] [address]Dr. Sarah Napoles NEUT # 6.0 103/ul Normal 1.4-6.5 [facility] Comment on above: Performed By: #### C BC ####[facility] [address] [place], [place] [address]Dr. Sarah Napoles Neutrophils/100 WBC (Bld) 67.4 % Normal 43.0-75.0 [facility] Comment on above: Performed By: #### C BC ####[facility] [address] [place] [address]Dr. Sarah Napoles Platelet mean volume (Bld) [Entitic vol] 10.1 fL Normal 9.5-13.5 [facility] Comment on above: Performed By: #### C BC ####[facility] [address] [place] [address]Dr. Sarah Napoles PLT 283 103/ul Normal 150-450 [facility] Comment on above: Performed By: #### C BC ####[facility] [address]ud[address] [place] [address]Dr. Sarah Napoles RBC 3.57 106/ul Critically low 4.20-5.40 [facility] Comment on above: Performed By: #### C BC ####[facility] Wt[address] [place], [place] [address]Dr. Sarah Napoles WBC 8.8 103/ul Normal 4.0-11.0 [facility] Comment on above: Performed By: #### C BC ####[facility] [address] [place] [address]Dr. Sarah Napoles GLYCOHEMOGLOBIN A1Con 2022 ADA RECOMMENDATION SEE BELOW Normal [facility] Comment on above: Result Comment: ADA RECOMMENDED LIMIT 4.0 - 6.0 ADA THERAPEUTIC TARGET < 7.0 ACTION SUGGESTED > 7.0 Performed By: #### A 1C ####[facility] [address] [place] [address]Dr. Sarah Napoles Glucose [Mass/Vol] 105 mg/dL Normal [facility] Comment on above: Performed By: #### A 1C ####[facility] [address] [place] [address]Dr. Sarah Napoles HbA1c (Bld) [Mass fraction] 5.3 % Normal 4.5-6.2 [facility] Comment on above: Performed By: #### A 1C ####[facility] Rdylkhswhw[address] [place], [place] [address]Dr. Sarah Napoles LIPID PROFILEon 12-15-2022 CHOL-HDL RATIO NORM SEE BELOW Normal [facility] Comment on above: Result Comment: 3.3 - 4.4 LOW RISK 4.4 - 7.1 AVERAGE RISK 7.1 - 11.0 MODERATE RISK >11.0 HIGH RISK Performed By: #### L IPID, CMP, URIC ####[facility] [address] [place] [id number]. Sarah Napoles Cholesterol [Mass/Vol] 160 mg/dL Normal <=200 [facility] Comment on above: Performed By: #### L IPID, CMP, URIC ####[facility] Od[address]ermdef[address] [place] [id number]. Sarah Napoles Cholesterol in HDL [Mass/Vol] 62 mg/dL Critically high 40-60 [facility] Comment on above: Performed By: #### L IPID, CMP, URIC ####[facility] [address] [place] [address]Dr. Sarah Napoles Cholesterol in LDL [Mass/Vol] 75.2 mg/dL Normal [facility] Comment on above: Performed By: #### L IPID, CMP, URIC ####[facility] [address] [place] [address]Dr. Sarah Napoles Cholesterol.total/Ch olesterol in HDL [Mass ratio] 2.6 {ratio} Normal [facility] Comment on above: Performed By: #### L IPID, CMP, URIC ####[facility] [address] [place] [id number]. Sarah Napoles HDL NORMAL > or = 60 mg/dl - LO W CARDIOVASCULAR RISK <40 mg/dl - HIGH CARDIOVASCULAR RISK Normal [facility] Comment on above: Performed By: #### L IPID, CMP, URIC ####[facility] [address] [place] [address]Dr. Sarah Napoles LDL CALC NORMAL SEE BELOW Normal [facility] Comment on above: Result Comment: <100 mg/dl OPTIMAL 100 - 129 mg/dl NEAR OR ABOVE OPTIMAL 130 - 159 mg/dl BORDERLINE HIGH 160 - 189 mg/dl HIGH >190 mg/dl VERY HIGH Performed By: #### L IPID, CMP, URIC ####[facility] [address] [place] [address]Dr. Yilan Napoles Triglyceride [Mass/Vol] 114 mg/dL Normal <=150 [facility] Comment on above: Performed By: #### L IPID, CMP, URIC ####[facility] [address] [place], [place] [address]QjDr. Sarah Napoles VLDL CALC 22.8 mg/dL Normal [facility] Comment on above: Performed By: #### L IPID, CMP, URIC ####[facility] [address] [place] [id number]. Sarah Napoles PROF 14(COMP METB)on 023 Albumin [Mass/Vol] 4.3 g/dL Normal 3.4-5.0 [facility] Comment on above: Performed By: #### L IPID, CMP, URIC #### [facility] [address] [place] [address] [address] Sarah Napoles Albumin/Globulin [Mass ratio] 1.3 {ratio} Normal [facility] Comment on above: Performed By: #### L IPID, CMP, URIC #### [facility] [address] [place] [address] [address] Sarah Napoles ALP [Catalytic activity/Vol] 71 U/L Normal 46-116 [facility] Comment on above: Performed By: #### L IPID, CMP, URIC #### [facility] [address] [place] [address] [address] Sarah Napoles ALT [Catalytic activity/Vol] 25 U/L Normal 14-59 [facility] Comment on above: Performed By: #### L IPID, CMP, URIC #### [facility] [address] [place] [address] [address] Sarah Napoles Anion gap [Moles/Vol] 11.8 mmol/L Normal [facility] Comment on above: Performed By: #### L IPID, CMP, URIC #### [facility] [address] [place] [address] [address] Sarah Napoles AST [Catalytic activity/Vol] 22 U/L Normal 15-37 [facility] Comment on above: Performed By: #### L IPID, CMP, URIC #### [facility] [address] [place] [address] [address] Sarah Napoles Bilirubin [Mass/Vol] 0.3 mg/dL Normal 0.2-1.0 [facility] Comment on above: Performed By: #### L IPID, CMP, URIC #### [facility] [address] [place] [address] [address] Sarah Napoles Calcium [Mass/Vol] 9.8 mg/dL Normal 8.5-10.1 [facility] Comment on above: Performed By: #### L IPID, CMP, URIC #### [facility] [address] [place] [address] [address] Sarah Napoles Chloride [Moles/Vol] 101 mmol/L Normal 98-107 [facility] Comment on above: Performed By: #### L IPID, CMP, URIC #### [facility] [address] [place] [address] Dr. Sarah Napoles CO2 [Moles/Vol] 29.5 mmol/L Normal 21.0-32.[address] [facility] Comment on above: Performed By: #### L IPID, CMP, URIC #### [facility] [address] [address] [address] Sarah Napoles Creatinine [Mass/Vol] 0.63 mg/dL Normal 0.55-1.02 [facility] Comment on above: Performed By: #### L IPID, CMP, URIC #### [facility] [address] [place] [address] [address] Sarah Napoles EGFR-AF UZBEK >60 Normal >=60 [facility] Comment on above: Performed By: #### L IPID, CMP, URIC #### [facility] [address] [place] [address] Dr. Sarah Napoles EGFR-NON AF UZBEK >60 Normal >=60 [facility] Comment on above: Performed By: #### L IPID, CMP, URIC #### [facility] [address] [place] [address] [address] Sarah Napoles Globulin (S) [Mass/Vol] 3.4 g/dL Normal [facility] Comment on above: Performed By: #### L IPID, CMP, URIC #### [facility] [address] [place] [address] [address] Sarah Napoles Glucose [Mass/Vol] 92 mg/dL Normal 74-106 [facility] Comment on above: Performed By: #### L IPID, CMP, URIC #### [facility] [address] [place] [address] [address] Sarah Napoles Potassium [Moles/Vol] 4.3 mmol/L Normal 3.5-5.1 [facility] Comment on above: Performed By: #### L IPID, CMP, URIC #### [facility] [address] [place] [address] [address] Sarah Napoles Protein [Mass/Vol] 7.7 g/dL Normal 6.4-8.2 [facility] Comment on above: Performed By: #### L IPID, CMP, URIC #### [facility] [address] [place] [address] Dr. Sarah Napoles Sodium [Moles/Vol] 138 mmol/L Normal 136-145 [facility] Comment on above: Performed By: #### L IPID, CMP, URIC #### [facility] [address] [place] [address] [address] Sarah Napoles Urea nitrogen [Mass/Vol] 25.0 mg/dL Critically high 7.0-18.0 [facility] Comment on above: Performed By: #### L IPID, CMP, URIC #### [facility] [address] [address] [address] Sarah Napoles Urea nitrogen/Creatinine [Mass ratio] 39.7 mg/mg Normal [facility] Comment on above: Performed By: #### L IPID, CMP, URIC #### [facility] [address] [place] [address] Dr. Sarah Napoles URIC ACID SERUMon 12-15-2022 Urate [Mass/Vol] 3.7 mg/dL Normal 2.6-6.[address] [facility] Comment on above: Performed By: #### L IPID, CMP, URIC ####[facility] [address] [place], [place] [address]Dr. Sarah Napoles CT LUNG CANCER SCREENINGon 1 CT LUNG CANCER SCREENING EXAMINATION: CT LUNG CANCER SCREENING HISTORY: Tobacco dependence caused by cigarettes COMPARISON: No relevant comparison available. TECHNIQUE: Axial, Coronal, and Sagittal images were created without the administration of IV contrast material. Dose reduction techniques were achieved by using automated exposure control and/or adjustment of mA and/or kV according to patient size and/or use of iterative reconstruction technique. FINDINGS: LUNGS: No visible pulmonary disease. PLEURA: No mass, effusion, or pneumothorax. VASCULATURE: No abnormality. MEREDITH: No mass or pathologic adenopathy. MEDIASTINUM: No mass or pathologic adenopathy. CARDIAC: No enlargement, pericardial thickening, or significant calcification. AORTA: No aneurysm or dissection. CHEST WALL: No mass or axillary adenopathy BONES: No bone lesion or fracture. LIMITED ABDOMEN: No suspicious findings. Limited images of the upper abdomen. OTHER: Negative. IMPRESSION: 1. Lung-RADS Category 1 Negative. No nodules and definitely benign nodules. Continue annual screening with LDCT in 12 months. Electronically authenticated by: JOVANNI MILLAN Date: 2022-07-21 22:18 Normal [facility] CBC AUTO DIFFon 06-16-2022 BASO # 0.1 103/ul Normal 0.0-0.1 [facility] Comment on above: Performed By: #### C BC ####[facility] [address] [place], [place] [address]Dr. Sarah Napoles Basophils/100 WBC (Bld) 0.9 % Normal 0.2-2.0 [facility] Comment on above: Performed By: #### C BC ####[facility] [address] [place] [address]Dr. Sarah Napoles EO # 0.2 103/ul Normal 0.0-0.7 [facility] Comment on above: Performed By: #### C BC ####[facility] [address] [place] [address]Dr. Sarah Napoles Eosinophils/100 WBC (Bld) 2.5 % Normal 0.9-7.0 [facility] Comment on above: Performed By: #### C BC ####[facility] [address]sw[address] [place] [address]Dr. Sarah Napoles Erythrocyte distribution width (RBC) [Ratio] 13.4 % Normal 11.0-15.0 [facility] Comment on above: Performed By: #### C BC ####[facility] [address] [place] [address]Dr. Sarah Napoles Hematocrit (Bld) [Volume fraction] 33.3 % Critically low 36.0-48.0 [facility] Comment on above: Performed By: #### C BC ####[facility] [address] [place], [place] [address]Dr. Sarah Napolse Hemoglobin (Bld) [Mass/Vol] 10.8 g/dL Critically low 12.0-16.0 [facility] Comment on above: Performed By: #### C BC ####[facility] [address] [place], [place] [address]Dr. Sarah Napoles IG # 0.03 10e3/ul Normal 0.00-0.03 [facility] Comment on above: Performed By: #### C BC ####[facility] [address] [place] [address]Dr. Sarah Napoles IG % 0.4 % Normal 0.0-0.5 [facility] Comment on above: Performed By: #### C BC ####[facility] [address] [place], [place] [address]Dr. Sarah Napoles LYMPH # 1.7 103/ul Normal 1.2-3.8 [facility] Comment on above: Performed By: #### C BC ####[facility] [address] [place], [place] [address]Dr. Sarah Napoles Lymphocytes/100 WBC (Bld) 20.4 % Critically low 20.5-60.0 [facility] Comment on above: Performed By: #### C BC ####[facility] [address] [place], [place] [address]Dr. Sarah Napoles MANUAL DIFF REQ NO Normal [facility] Comment on above: Performed By: #### C BC ####[facility] [address] [place] [address]Dr. Sarah Napoles MCH (RBC) [Entitic mass] 32.0 pg Normal 26.7-34.0 [facility] Comment on above: Performed By: #### C BC ####[facility] [address] [place] [address]Dr. Sarah Napoles MCHC (RBC) [Mass/Vol] 32.4 g/dL Normal 29.9-35.2 [facility] Comment on above: Performed By: #### C BC ####[facility] [address] [place], [place] [address]Dr. Sarah Napoles MCV (RBC) [Entitic vol] 98.8 fL Normal 81.0-99.0 [facility] Comment on above: Performed By: #### C BC ####[facility] [address]ktujq[address] [place], [place] [address]Dr. Sarah Napoles MONO # 0.9 103/ul Critically high 0.3-0.8 [facility] Comment on above: Performed By: #### C BC ####[facility] [address] [place], [place] [address]Dr. Sarah Napoles Monocytes/100 WBC (Bld) 11.0 % Normal 1.7-12.0 [facility] Comment on above: Performed By: #### C BC ####[facility] [address] [place], [place] [address]Dr. Sarah Napoles NEUT # 5.3 103/ul Normal 1.4-6.5 [facility] Comment on above: Performed By: #### C BC ####[facility] [address] [place], [place] [address]Dr. Sarah Napoles Neutrophils/100 WBC (Bld) 64.8 % Normal 43.0-75.0 [facility] Comment on above: Performed By: #### C BC ####[facility] [address] [place], [place] [address]Dr. Sarah Napoles Platelet mean volume (Bld) [Entitic vol] 10.8 fL Normal 9.5-13.5 [facility] Comment on above: Performed By: #### C BC ####[facility] [address] [place], [place] [address]Am. Sarah Napoles PLT 262 103/ul Normal 150-450 [facility] Comment on above: Performed By: #### C BC ####[facility] [address] [place], [place] [address]Ln. Sarah Napoles RBC 3.37 106/ul Critically low 4.20-5.40 [facility] Comment on above: Performed By: #### C BC ####[facility] [address] [place] [id number]. Sarah Napoles WBC 8.1 103/ul Normal 4.0-11.0 [facility] Comment on above: Performed By: #### C BC ####[facility] [address] [place] [id number]. Sarah Napoles GLYCOHEMOGLOBIN A1Con 2021 ADA RECOMMENDATION SEE BELOW Normal [facility] Comment on above: Result Comment: ADA RECOMMENDED LIMIT 4.0 - 6.0 ADA THERAPEUTIC TARGET < 7.0 ACTION SUGGESTED > 7.0 Performed By: #### A 1C ####[facility] [address] [place] [address]Dr. Sarah Napoles Glucose [Mass/Vol] 108 mg/dL Normal [facility] Comment on above: Performed By: #### A 1C ####[facility] [address]rahva[address] [place] [id number]. Sarah Napoles HbA1c (Bld) [Mass fraction] 5.4 % Normal 4.5-6.2 [facility] Comment on above: Performed By: #### A 1C ####[facility] [address]hr[address] [place] [id number]. Sarah Napoles LIPID PROFILEon 06-16-2022 CHOL-HDL RATIO NORM SEE BELOW Normal [facility] Comment on above: Result Comment: 3.3 - 4.4 LOW RISK 4.4 - 7.1 AVERAGE RISK 7.1 - 11.0 MODERATE RISK >11.0 HIGH RISK Performed By: #### C MP, LIPID #### [facility] [address] [address] [address] Sarah Napoles Cholesterol [Mass/Vol] 147 mg/dL Normal <=200 [facility] Comment on above: Performed By: #### C MP, LIPID #### [facility] [address] [address] [address] Sarah Napoles Cholesterol in HDL [Mass/Vol] 58 mg/dL Normal 40-60 [facility] Comment on above: Performed By: #### C MP, LIPID #### [facility] [address] [address] [address] Sarah Napoles Cholesterol in LDL [Mass/Vol] 68.0 mg/dL Normal [facility] Comment on above: Performed By: #### C MP, LIPID #### [facility] [address] [address] [address] Sarah Napoles Cholesterol.total/Ch olesterol in HDL [Mass ratio] 2.5 {ratio} Normal [facility] Comment on above: Performed By: #### C MP, LIPID #### [facility] [address] [place] [address] Dr. Sarah Napoles HDL NORMAL > or = 60 mg/dl - LO W CARDIOVASCULAR RISK <40 mg/dl - HIGH CARDIOVASCULAR RISK Normal [facility] Comment on above: Performed By: #### C MP, LIPID #### [facility] [address] [address] [address] Sarah Napoles LDL CALC NORMAL SEE BELOW Normal [facility] Comment on above: Result Comment: <100 mg/dl OPTIMAL 100 - 129 mg/dl NEAR OR ABOVE OPTIMAL 130 - 159 mg/dl BORDERLINE HIGH 160 - 189 mg/dl HIGH >190 mg/dl VERY HIGH Performed By: #### C MP, LIPID #### [facility] [address] [address] [address] Sarah Napoles Triglyceride [Mass/Vol] 105 mg/dL Normal <=150 [facility] Comment on above: Performed By: #### C MP, LIPID #### [facility] [address] [address] [address] Sarah Napoles VLDL CALC 21.0 mg/dL Normal [facility] Comment on above: Performed By: #### C MP, LIPID #### [facility] [address] [address] [address] Sarah Napoles PROF 14(COMP METB)on 022 Albumin [Mass/Vol] 4.0 g/dL Normal 3.4-5.0 [facility] Comment on above: Performed By: #### C MP, LIPID #### [facility] [address] [address] [address] Sarah Napoles Albumin/Globulin [Mass ratio] 1.2 {ratio} Normal [facility] Comment on above: Performed By: #### C MP, LIPID #### [facility] [address] [place] [address] Dr. Sarah Napoles ALP [Catalytic activity/Vol] 53 U/L Normal 46-116 [facility] Comment on above: Performed By: #### C MP, LIPID #### [facility] [address] [place] [address] Dr. Sarah Napoles ALT [Catalytic activity/Vol] 32 U/L Normal 14-59 [facility] Comment on above: Performed By: #### C MP, LIPID #### [facility] [address] [place] [address] Dr. Sarah Napoles Anion gap [Moles/Vol] 8.0 mmol/L Normal [facility] Comment on above: Performed By: #### C MP, LIPID #### [facility] [address] [place] [address] Dr. Sarah Napoles AST [Catalytic activity/Vol] 23 U/L Normal 15-37 [facility] Comment on above: Performed By: #### C MP, LIPID #### [facility] [address] [place] [address] Dr. Sarah Napoles Bilirubin [Mass/Vol] 0.4 mg/dL Normal 0.2-1.0 [facility] Comment on above: Performed By: #### C MP, LIPID #### [facility] [address] [place] [address] Dr. Sarah Napoles Calcium [Mass/Vol] 9.4 mg/dL Normal 8.5-10.1 [facility] Comment on above: Performed By: #### C MP, LIPID #### [facility] [address] [address] [address] Sarah Napoles Chloride [Moles/Vol] 100 mmol/L Normal 98-107 [facility] Comment on above: Performed By: #### C MP, LIPID #### [facility] [address] [address] [address] Sarah Napoles CO2 [Moles/Vol] 30.8 mmol/L Normal 21.0-32.0 [facility] Comment on above: Performed By: #### C MP, LIPID #### [facility] [address] [address] [address] Sarah Napoles Creatinine [Mass/Vol] 0.68 mg/dL Normal 0.55-1.02 [facility] Comment on above: Performed By: #### C MP, LIPID #### [facility] [address] [address] [address] Sarah Napoles EGFR-AF UZBEK >60 Normal >=60 [facility] Comment on above: Performed By: #### C MP, LIPID #### [facility] [address] [address] [address] Sarah Napoles EGFR-NON AF UZBEK >60 Normal >=60 [facility] Comment on above: Performed By: #### C MP, LIPID #### [facility] [address] [address] [address] Sarah Napoles Globulin (S) [Mass/Vol] 3.3 g/dL Normal [facility] Comment on above: Performed By: #### C MP, LIPID #### [facility] [address] [address] [address] Sarah Napoles Glucose [Mass/Vol] 90 mg/dL Normal 74-106 [facility] Comment on above: Performed By: #### C MP, LIPID #### [facility] [address] [address] [address] Sarah Napoles Potassium [Moles/Vol] 3.8 mmol/L Normal 3.5-5.1 [facility] Comment on above: Performed By: #### C MP, LIPID #### [facility] [address] [address] [address] Sarah Napoles Protein [Mass/Vol] 7.3 g/dL Normal 6.4-8.2 [facility] Comment on above: Performed By: #### C MP, LIPID #### [facility] [address] [address] [address] Sarah Napoles Sodium [Moles/Vol] 135 mmol/L Critically low 136-145 [facility] Comment on above: Performed By: #### C MP, LIPID #### [facility] [address] [address] [address] Sarah Napoles Urea nitrogen [Mass/Vol] 13.0 mg/dL Normal 7.0-18.0 [facility] Comment on above: Performed By: #### C MP, LIPID #### [facility] [address] [address] [address] Sarah Napoles Urea nitrogen/Creatinine [Mass ratio] 19.1 mg/mg Normal [facility] Comment on above: Performed By: #### C MP, LIPID #### [facility] [address] [address] [address] Sarah Napoles POC GLUCOSE LABon 01-03-2021 Glucose [Mass/Vol] 119 mg/dL High 70-100 [facility] Comment on above: Performed By: #### [id number] #### [facility] [address] [place] [address], [place] Glucose [Mass/Vol] 145 mg/dL High 70-100 [facility] Comment on above: Performed By: #### 8 [id number] #### [facility] [address] [place] [address], [place] Glucose [Mass/Vol] 93 mg/dL Normal 70-100 [facility] Comment on above: Performed By: #### 8 [id number] #### [facility] [address] [place] [address], [place] Glucose [Mass/Vol] 99 mg/dL Normal 70-100 [facility] Comment on above: Performed By: #### 8 [id number] #### [facility] [address] [place] [address], [place] POC GLUCOSE LABon 01-02-2020 Glucose [Mass/Vol] 101 mg/dL High 70-100 [facility] Comment on above: Performed By: #### 8 [id number] #### [facility] [address] [place] [address], [place] Glucose [Mass/Vol] 127 mg/dL High 70-100 [facility] Comment on above: Performed By: #### 8 [id number] #### [facility] [address] [place] [address], [place] Glucose [Mass/Vol] 110 mg/dL High 70-100 [facility] Comment on above: Performed By: #### 8 [id number] #### [facility] [address] [place] [address], [place] BASIC METABOLIC PANELon 3 Calcium [Mass/Vol] 8.4 mg/dL Low 8.6-10.3 [facility] Comment on above: Order Comment: No: D o not add to previous draw Performed By: #### 8 [id number] #### [facility] [address] [place] [address], [place] Chloride [Moles/Vol] 106 mmol/L Normal 98-107 [facility] Comment on above: Order Comment: No: D o not add to previous draw Performed By: #### [id number] #### [facility] [address] [place] [address], [place] CO2 [Moles/Vol] 29 mmol/L Normal 21-31 [facility] Comment on above: Order Comment: No: D o not add to previous draw Performed By: #### 8 [id number] #### [facility] [address] [place] [address], [place] Creatinine [Mass/Vol] 0.50 mg/dL Low 0.60-1.20 [facility] Comment on above: Order Comment: No: D o not add to previous draw Performed By: #### 8 [id number] #### [facility] [address] [place] [address], [place] GFR/1.73 sq M.predicted among blacks MDRD (S/P/Bld) [Vol rate/Area] mL/min/{1.73_m2} Normal >60 [facility] Comment on above: Order Comment: No: D o not add to previous draw Performed By: #### 8 [id number] #### [facility] [address] [place] [address], [place] GFR/1.73 sq M.predicted among non-blacks MDRD (S/P/Bld) [Vol rate/Area] mL/min/{1.73_m2} Normal >60 [facility] Comment on above: Order Comment: No: D o not add to previous draw Performed By: #### 8 [id number] #### [facility] [address] [place] [address], [place] Glucose [Mass/Vol] 88 mg/dL Normal 70-100 [facility] Comment on above: Order Comment: No: D o not add to previous draw Performed By: #### 8 [id number] #### [facility] [address] [place] [address], [place] Potassium [Moles/Vol] 3.3 mmol/L Low 3.5-5.1 [facility] Comment on above: Order Comment: No: D o not add to previous draw Performed By: #### 8 [id number] #### [facility] [address] [place] [address], [place] Sodium [Moles/Vol] 141 mmol/L Normal 136-145 [facility] Comment on above: Order Comment: No: D o not add to previous draw Performed By: #### 8 [id number] #### [facility] [address] [place] [address], [facility] Urea nitrogen [Mass/Vol] 10 mg/dL Normal 7-25 [facility] Comment on above: Order Comment: No: D o not add to previous draw Performed By: #### 8 [id number] #### [facility] [address] [facility] [place] [address], [facility] CBC W/DIFFon 01-01-2021 ABS IMM GRANS 0.1 10*3/uL Normal 0.0-0.2 [facility] Comment on above: Order Comment: No: D o not add to previous draw Performed By: #### 5 0103 #### [facility] [address] [place] [address], [facility] ABS NEUTROPHILS 10.1 10*3/uL High 1.6-7.6 [facility] Comment on above: Order Comment: No: D o not add to previous draw Performed By: #### 5 0103 #### [facility] [address] [place] [address], [facility] Basophils (Bld) [#/Vol] 0.0 10*3/uL Normal 0.0-0.2 [facility] Comment on above: Order Comment: No: D o not add to previous draw Performed By: #### 5 0103 #### [facility] [address] [facility] [place] [address], [facility] Basophils/100 WBC (Bld) 0.2 % Normal 0.0-1.0 [facility] Comment on above: Order Comment: No: D o not add to previous draw Performed By: #### 5 0103 #### [facility] [address] [place] [address], [facility] Eosinophils (Bld) [#/Vol] 0.0 10*3/uL Normal 0.0-0.5 [facility] Comment on above: Order Comment: No: D o not add to previous draw Performed By: #### 5 0103 #### [facility] [address] [facility] [place] [address], [facility] Eosinophils/100 WBC (Bld) 0.1 % Normal 0.0-6.0 [facility] Comment on above: Order Comment: No: D o not add to previous draw Performed By: #### 5 0103 #### [facility] [address] [facility] [place] [address], [facility] Erythrocyte distribution width (RBC) [Ratio] 13.1 % Normal 11.5-15.0 [facility] Comment on above: Order Comment: No: D o not add to previous draw Performed By: #### 5 0103 #### [facility] [address] [facility] [place] [address], [facility] Hematocrit (Bld) [Volume fraction] 27.7 % Low 36.0-45.0 [facility] Comment on above: Order Comment: No: D o not add to previous draw Performed By: #### 5 0103 #### [facility] [address] [place] [address], [facility] Hemoglobin (Bld) [Mass/Vol] 9.2 g/dL Low 12.0-15.0 [facility] Comment on above: Order Comment: No: D o not add to previous draw Result Comment: RESU LTS CHECKED Performed By: #### 5 0103 #### [facility] [address] [facility] [place] [address], [facility] IMMATURE GRANS 0.4 % Normal 0.0-1.0 [facility] Comment on above: Order Comment: No: D o not add to previous draw Performed By: #### 5 0103 #### [facility] [address] [place] [address], [facility] Lymphocytes (Bld) [#/Vol] 1.8 10*3/uL Normal 1.2-4.0 [facility] Comment on above: Order Comment: No: D o not add to previous draw Performed By: #### 5 0103 #### [facility] [address] [place] [address], [facility] Lymphocytes/100 WBC (Bld) 13.6 % Low 20.0-45.0 [facility] Comment on above: Order Comment: No: D o not add to previous draw Performed By: #### 5 0103 #### [facility] [address] [place] [address], [facility] MCH (RBC) [Entitic mass] 32.4 pg Normal 27.0-33.0 [facility] Comment on above: Order Comment: No: D o not add to previous draw Performed By: #### 5 0103 #### [facility] [address] [facility] [place] [address], [facility] MCHC (RBC) [Mass/Vol] 33.2 g/dL Normal 32.0-35.0 [facility] Comment on above: Order Comment: No: D o not add to previous draw Performed By: #### 5 0103 #### [facility] [address] [place] [address], [facility] MCV (RBC) [Entitic vol] 97.5 fL Normal 82.0-98.0 [facility] Comment on above: Order Comment: No: D o not add to previous draw Performed By: #### 5 0103 #### [facility] [address] [place] [address], [facility] Monocytes (Bld) [#/Vol] 1.4 10*3/uL High 0.1-1.0 [facility] Comment on above: Order Comment: No: D o not add to previous draw Performed By: #### 5 0103 #### [facility] [address] [facility] [place] [address] [id number], [facility] MONOS 10.1 % Normal 5.0-12.0 [facility] Comment on above: Order Comment: No: D o not add to previous draw Performed By: #### 5 0103 #### [facility] [address] [place] [address], [facility] Neutrophils/100 WBC (Bld) 75.6 % High 40.0-72.0 [facility] Comment on above: Order Comment: No: D o not add to previous draw Performed By: #### 5 0103 #### [facility] [address] [place] [address], [place] Nucleated RBC/100 WBC (Bld) [Ratio] 0 % Normal 0-0 [facility] Comment on above: Order Comment: No: D o not add to previous draw Performed By: #### 5 0103 #### [facility] [address] [place] [address], [place] PLAT CNT 237 10*3/uL Normal 150-400 [facility] Comment on above: Order Comment: No: D o not add to previous draw Performed By: #### 5 0103 #### [facility] [address] [place] [address], [place] RBC (Bld) [#/Vol] 2.84 10*6/uL Low 3.80-5.00 [facility] Comment on above: Order Comment: No: D o not add to previous draw Performed By: #### 5 0103 #### [facility] [address] [place] [address], [place] WBC (Bld) [#/Vol] 13.43 10*3/uL High 4.00-10.60 [facility] Comment on above: Order Comment: No: D o not add to previous draw Performed By: #### 5 0103 #### [facility] [address] [place] [address], [place] POC GLUCOSE LABon 01-01-2021 Glucose [Mass/Vol] 115 mg/dL High 70-100 [facility] Comment on above: Performed By: #### 8 [id number] #### [facility] [address] [place] [address], [place] Glucose [Mass/Vol] 110 mg/dL High 70-100 [facility] Comment on above: Performed By: #### 8 [id number] #### [facility] [address] [place] [address], [place] Glucose [Mass/Vol] 111 mg/dL High 70-100 [facility] Comment on above: Performed By: #### 8 [id number] #### [facility] [address] [place] [address], [place] Glucose [Mass/Vol] 102 mg/dL High 70-100 [facility] Comment on above: Performed By: #### 8 [id number] #### [facility] [address] [facility] [place] [address], [facility] HIP RIGHT 1 OR 2 VWS WITH PE LVISon 12-31-2020 HIP RIGHT 1 OR 2 VWS WITH PELVIS [facility] Department of Radiology [address] [place] [id number] Patient Name: BLANCA ENRIQUEZ : 1960 Sex: F Age: Race: White Pt. Location: OUTP Patient Status: I Ordered Date: 12/31/2020 9:45:00 AM Completed Date: 12/31/2020 10:43 AM Requesting Provider: HEMRINIO ROBERTS Attending Provider: HERMINIO ROBERTS Report Copy To: Signs & Symptoms: RIGHT ANTERIOR TOTAL HIP REPLACEMENT History: Comments: RIGHT ANTERIOR TOTAL HIP REPLACEMENT Exam: HIP RIGHT 1 OR 2 VWS WITH PELVIS HIP RIGHT 1 OR 2 VWS WITH PELVIS 12/31/2020 10:43 AM CLINICAL INDICATIONS: RIGHT ANTERIOR TOTAL HIP REPLACEMENT TECHNOLOGIST COMMENTS: Fluoro for intra op right anterior hip replacement with Dr. Roberts in [place] 4. Aguiar c-arm used. Fluoro time 14 seconds. QUESTION FOR THE RADIOLOGIST: RIGHT ANTERIOR TOTAL HIP REPLACEMENT. PROTOCOL: 6 intraoperative fluoroscopic images of the total right knee replacement were obtained. COMPARISON: 11/22/2020. FINDINGS: Initial images show severe degenerative changes of the right hip. Subsequent images demonstrate replacement of the acetabulum and replacement of the right femoral head with a prosthesis. IMPRESSION: Intraoperative total right hip arthroplasty. For further diagnostic and therapeutic detail, please refer to the operative note. Approved by:Schuyler Borrero12/31/2020 1:48 PM. I, Panda Smith,have reviewed the images and reports Electronically signed: Panda Smith. Transcribed by: [email or web address], User Resident: SCHUYLER RODRIGUES Electronically Signed by: PANDA SMITH @ 12/31/2020 04:29 PM I personally read this/these film(s) with this resident Normal [facility] Comment on above: Order Comment: RIGHT ANTERIOR TOTAL HIP REPLACEMENT Operative Reporton Operative Report MR#: [id number] I [facility] Pt. Name: Blanca Enriquez Room #: [id number] Discharge Date: Birthdate: 1960 OPERATIVE REPORT DATE OF SURGERY: 12/31/2020 SURGEON: Herminio Roberts M.D. ASSISTANTS: 1. MD Alex. 2. MANNY Butt. ANESTHESIA: General anesthesia. ESTIMATED BLOOD LOSS: 500 mL. FLUIDS: Per Anesthesia note. COMPLICATIONS: None. SPECIMENS: None. PREOPERATIVE DIAGNOSIS: Right hip osteoarthritis. POSTOPERATIVE DIAGNOSIS: Right hip osteoarthritis. PROCEDURE: Right total hip arthroplasty. COMPONENTS: 1. Biomet 14 Taperloc lateral offset femoral stem. 2. -6, 36 ceramic femoral head with associated taper adapter. 3. 54 acetabular shell. 4. 30 mm acetabular screw. INDICATION FOR PROCEDURE: A 60-year-old female has persistent right hip pain despite nonoperative measures. Has [id number] osteoarthritis of the right hip with subchondral cyst formation. She has failed other nonoperative measures and elects for total hip arthroplasty for treatment of pain. OPERATIVE COURSE: The patient was brought to the operating room and placed supine on the operating table. General anesthesia was obtained. Bilateral lower extremities prepped and draped sterilely. Time-out was completed. Preoperative antibiotics were confirmed and given. The start point was identified by C-arm fluoroscopy and distal and lateral to the ASIS running distally and laterally. I dissected down to the overlying tensor fascia and then incised it. The muscle retracted laterally. The deep fascia perforated. The circumflex vessels identified and cauterized. The anterior portion of femoral neck was then exposed and partial capsulectomy was performed anteriorly. The neck cut was marked by C-arm fluoroscopy. A secondary cut was made more proximally. The intercalary fragment was removed. The head was removed with a Steinmann pin. I then incised the inferior capsular tissue and then exposed the acetabulum. We then removed a little bit of osteophytes around the periphery of the acetabulum and then reamed sequentially up to a total size 53 with good rim fit. I checked this on C-arm fluoroscopy and then impacted the cup down seating completely. I drilled and placed the superior acetabular screw. I then placed a liner in position and seated as well. The proximal femur was then exposed. The Omni-Tract hook was applied. I later removed it. The lateral capsular tissue was incised and the proximal femur was exposed. I then used a box osteotome and the curved rasp to open up the canal and then lateralizing rasp. I removed some excess bone posteriorly and then broached sequentially up to a total size 14. I trialed this and noted that was acceptable with stability. C-arm fluoroscopy confirmed acceptable hip replacement as well. I then removed the broaches. I placed the real implant down seating completely. I then trialed a -6, noted it was acceptable. Redislocated the hip and placed the real head and clean dry taper and malleted down. I relocated the hip and stability was acceptable. The tensor was closed itself with #2 Quill suture. The remainder of the incision was closed in layered fashion. Sterile dressing applied. At the conclusion of the case, all sponge and needle counts were correct. I was present for the critical portions of this case. Electronically Signed by: Herminio Roberts M.D. 01/02/2021 08:54 P Herminio Roberts M.D. Date Dict: 12/31/2020/10:44 A/Herminio Roberts M.D. Date Trans: 12/31/2020 09:28 P/mmo [id number] Normal [facility] POC GLUCOSE LABon 12-31-2020 Glucose [Mass/Vol] 167 mg/dL High 70-100 [facility] Comment on above: Performed By: #### 8 [id number] #### [facility] [address] [place] [address], [place] Glucose [Mass/Vol] 162 mg/dL High 70-100 [facility] Comment on above: Performed By: #### 8 [id number] #### [facility] [address] [place] [address], [place] Glucose [Mass/Vol] 168 mg/dL High 70-100 [facility] Comment on above: Performed By: #### 8 [id number] #### [facility] [address] [place] [address], [place] Glucose [Mass/Vol] 104 mg/dL High 70-100 [facility] Comment on above: Performed By: #### [id number] #### [facility] [address] [place] [address], [place] PORTABLE HIP RIGHT 1 OR 2 VW S WITH PELVISon 12-31-2020 PORTABLE HIP RIGHT 1 OR 2 VWS WITH PELVIS [facility] Department of Radiology [address] [place] [address] Patient Name: BLANCA ENRIQUEZ : 1960 Sex: F Age: Race: White Pt. Location: OUTP Patient Status: O Ordered Date: 12/31/2020 10:40:00 AM Completed Date: 12/31/2020 12:47 PM Requesting Provider: FIDE PELAEZ Attending Provider: HERMINIO ROBERTS Report Copy To: Signs & Symptoms: Pain History: Comments: Hardware Evaluation, PACU Exam: PORTABLE HIP RIGHT 1 OR 2 VWS WITH PELVIS PORTABLE HIP RIGHT 1 OR 2 VWS WITH PELVIS 12/31/2020 12:47 PM CLINICAL INDICATIONS: Pain TECHNOLOGIST COMMENTS: post op right hip QUESTION FOR THE RADIOLOGIST: Hardware Evaluation, PACU PROTOCOL: AP(PA) and Lateral views were obtained. COMPARISON: Fluoroscopy from the same day FINDINGS: Pelvic ring looks intact There is a right total hip replacement Anatomic alignment No visible fracture Some postoperative gas noted Mild degenerative change left hip and lower lumbar spine and SI joints IMPRESSION: Anatomic alignment of right hip replacement without visible fracture Electronically signed: Panda Smith. Transcribed by: [email or web address], User Resident: Electronically Signed by: PANDA SMITH @ 12/31/2020 01:05 PM Normal [facility] Comment on above: Order Comment: Hardw are Evaluation, PACU *MRSA/MSSA DNA NASALon 12-10 *MRSA/MSSA DNA NASAL Clinical Report: (D ) Specimen: NASAL SWAB Collected: 12/10/2020 13:55 Status: Final Last Updated: 12/11/2020 15:48 MSSA DNA (Final) Negative MRSA DNA (Final) Negative Normal [facility] Comment on above: Performed By: #### [id number] #### [facility] [address] [place] [address], [facility] CBC W/DIFFon 12-10-2020 ABS IMM GRANS 0.0 10*3/uL Normal 0.0-0.2 The [facility] Comment on above: Performed By: #### [id number] #### [facility] [address] [place] [address], [facility] ABS NEUTROPHILS 7.7 10*3/uL High 1.6-7.6 The [facility] Comment on above: Performed By: #### [id number] #### [facility] [address] [place] [address], [facility] Basophils (Bld) [#/Vol] 0.1 10*3/uL Normal 0.0-0.2 [facility] Comment on above: Performed By: #### [id number] #### [facility] [address] [place] [address], [facility] Basophils/100 WBC (Bld) 0.6 % Normal 0.0-1.0 [facility] Comment on above: Performed By: #### [id number] #### [facility] [address] [place] [address], [facility] Eosinophils (Bld) [#/Vol] 0.1 10*3/uL Normal 0.0-0.5 [facility] Comment on above: Performed By: #### [id number] #### [facility] [address] [place] [address], [facility] Eosinophils/100 WBC (Bld) 1.0 % Normal 0.0-6.0 [facility] Comment on above: Performed By: #### [id number] #### [facility] [address] [facility]. [address] Erythrocyte distribution width (RBC) [Ratio] 13.0 % Normal 11.5-15.0 [facility] Comment on above: Performed By: #### [id number] #### [facility] [address] [facility] [place] [address], [facility] Hematocrit (Bld) [Volume fraction] 36.2 % Normal 36.0-45.0 [facility] Comment on above: Performed By: #### [id number] #### [facility] [address] [facility]. [address] Hemoglobin (Bld) [Mass/Vol] 11.9 g/dL Low 12.0-15.0 [facility] Comment on above: Performed By: #### [id number] #### [facility] [address] [facility]. [address] IMMATURE GRANS 0.3 % Normal 0.0-1.0 The [facility] Comment on above: Performed By: #### [id number] #### [facility] [address] [facility] [address] Lymphocytes (Bld) [#/Vol] 1.5 10*3/uL Normal 1.2-4.0 [facility] Comment on above: Performed By: #### [id number] #### [facility] [address] [place] [address], [facility] Lymphocytes/100 WBC (Bld) 15.1 % Low 20.0-45.0 [facility] Comment on above: Performed By: #### [id number] #### [facility] [address] [place] [address], [facility] MCH (RBC) [Entitic mass] 31.9 pg Normal 27.0-33.0 [facility] Comment on above: Performed By: #### [id number] #### [facility] [address] [facility] [address] MCHC (RBC) [Mass/Vol] 32.9 g/dL Normal 32.0-35.0 [facility] Comment on above: Performed By: #### [id number] #### [facility] [address] [facility] [place] [address], [facility] MCV (RBC) [Entitic vol] 97.1 fL Normal 82.0-98.0 [facility] Comment on above: Performed By: #### [id number] #### [facility] [address] [place] [address], [facility] Monocytes (Bld) [#/Vol] 0.7 10*3/uL Normal 0.1-1.0 [facility] Comment on above: Performed By: #### 8 [id number] #### [facility] [address] [facility]. [address] MONOS 7.3 % Normal 5.0-12.0 [facility] Comment on above: Performed By: #### [id number] #### [facility] [address] [facility] [address] Neutrophils/100 WBC (Bld) 75.7 % High 40.0-72.0 [facility] Comment on above: Performed By: #### [id number] #### [facility] [address] [place] [address], [facility] Nucleated RBC/100 WBC (Bld) [Ratio] 0 % Normal 0-0 [facility] Comment on above: Performed By: #### [id number] #### [facility] [address] [place] [address], [facility] PLAT CNT 290 10*3/uL Normal 150-400 [facility] Comment on above: Performed By: #### 8 [id number] #### [facility] [address] [place] [address], [facility] RBC (Bld) [#/Vol] 3.73 10*6/uL Low 3.80-5.00 [facility] Comment on above: Performed By: #### 8 [id number] #### [facility] [address] [place] [address], [facility] WBC (Bld) [#/Vol] 10.11 10*3/uL Normal 4.00-10.60 [facility] Comment on above: Performed By: #### [id number] #### [facility] [address] [place] [address], [facility] HEMOGLOBIN A1Con 12-10-2020 Glucose [Moles/Vol] 108 mmol/L Normal [facility] Comment on above: Performed By: #### 3 [id number] #### [address] [address], [facility] HbA1c (Bld) [Mass fraction] 5.4 % Normal 4.0-6.0 [facility] Comment on above: Performed By: #### 3 1791 #### [address] [address], [facility] HIP RIGHT 1 OR 2 VWS WITH PE LVISon 11-22-2020 HIP RIGHT 1 OR 2 VWS WITH PELVIS [facility] Department of Radiology [address] [place] [id number] Patient Name: BLANCA ENRIQUEZ : 1960 Sex: F Age: Race: White Pt. Location: Patient Status: O Ordered Date: 11/22/2020 3:00:00 PM Completed Date: 11/22/2020 03:14 PM Requesting Provider: HERMINIO ROBERTS Attending Provider: HERMINIO ROBERTS Report Copy To: Signs & Symptoms: M16.11 Unilateral primary osteoarthritis, right hip I10 History: Comments: Evaluate Exam: HIP RIGHT 1 OR 2 VWS WITH PELVIS HIP RIGHT 1 OR 2 VWS WITH PELVIS 11/22/2020 3:14 PM CLINICAL INDICATIONS: M16.11 Unilateral primary osteoarthritis, right hip I10 TECHNOLOGIST COMMENTS: ortho check right hip complains of right hip pain QUESTION FOR THE RADIOLOGIST: Evaluate PROTOCOL: AP(PA) and Lateral views were obtained. COMPARISON: February 15, 2019 FINDINGS: Advanced osteoarthritic changes are noted with complete loss of the joint space now showing subchondral cyst since chondral sclerosis. This is worsened in comparison to prior exam. No acute fractures seen. Sacral ala appear grossly intact. IMPRESSION: Advanced right osteoarthritis, worsened in comparison to prior exam. Electronically signed: Rodney Sutherland. Transcribed by: [email or web address], User Resident: Electronically Signed by: RODNEY SUTHERLAND @ 11/22/2020 03:43 PM Normal [facility] Comment on above: Order Comment: Evalu ate Encounters Encounter Date Encounter Type Care Provider Facility Start: 09-08-2023 End: 09-08-2023 ambulatory [facility] Not Available Start: 03-03-2023 End: 03-04-2023 ambulatory [facility] Facility:[facility] Start: 02-25-2023 End: 02-26-2023 ambulatory [facility] Facility:[facility] Start: 02-09-2023 End: 02-10-2023 ambulatory [facility] Facility:[facility] Start: 02-02-2023 End: 02-03-2023 ambulatory [facility] Facility:[facility] Start: 01-08-2023 End: 01-09-2023 ambulatory H [facility] Facility:[facility] Start: 12-17-2022 End: 12-18-2022 ambulatory [facility] Facility:[facility] Start: 12-15-2022 End: 12-16-2022 ambulatory [facility] Facility:[facility] Start: 07-21-2022 End: 07-22-2022 ambulatory [facility] Facility:[facility] Start: 06-16-2022 End: 06-17-2022 ambulatory [facility] Facility:[facility] Start: 12-31-2020 End: 01-03-2021 ambulatory PHYSICIAN UNKNOWN Facility:[facility] Procedures Date Procedure Procedure Detail Performing Clinician Start: 12-31-2020 ANESTH HIP ARTHROPLASTY HERMINIO ROBERTS Start: 12-31-2020 JOINT DEVICE (IMPLANTABLE) HERMINIO ROBERTS Start: 12-31-2020 TOTAL HIP ARTHROPLASTY HERMINIO ROBERTS Payers Date Payer Category Payer Unknown [id number] 1960 Unknown [id number] 2.16.8 [id number] 1960 Unknown [id number] 2.16.84 [id number] 1960 Unknown [id number] 2.16.84 [id number] 1960 Unknown [id number] 2.16.84 [id number] 1960 Unknown [id number] 2.16.84 [id number] 1960 Unknown [id number] 2.16.84 [id number] 1960 Unknown [id number] 2.16.84 [id number] 1960 Unknown [id number] 2.16.84 [id number] 1960 Unknown [id number] 2.16.84 [id number] 1960 Unknown [id number] 2.16.84 [id number] 1960 Unknown [id number] Clinical Note 12-17-2022 Note Date & Type Note Facility 12-17-2022 Note PROCEDURE: XR HIP RT 2 3V W PELVIS HISTORY: Pain in right hip joint COMPARISON: XR hip right 07/05/2018 FINDINGS: BONES:Total right hip replacement without evidence of hardware fracture or loosening. No bone fracture, dislocation, or lesion. Mild joint space narrowing of the left hip. SOFT TISSUES:No visible soft tissue swelling. EFFUSION:None visible. OTHER: Negative. IMPRESSION: 1. No acute or suspicious bone abnormality. 2. Prior right hip replacement without evidence of hardware failure. Electronically authenticated by: JOVANNI MILLAN Date: 2022-12-17 16:26 [facility] Summary Purpose Family History No Family History Records FoundNo Family History Records FoundNo Family History Records Found Advance Directives No Advanced Directives Records FoundNo Advanced Directives Records FoundNo Advanced Directives Records Found Additional Source Comments INFORMATION SOURCE (unrecogn ized section and content) DATE CREATED AUTHOR 02/27/2021 [facility] DATE CREATED AUTHOR AUTHOR'S ORGANIZ ATION 03/13/2023 [facility] DATE CREATED AUTHOR AUTHOR'S ORGANIZ ATION 09/10/2023 [facility] FOR RECORDS PERTAINING TO PATIENTS WHO ARE OR HAVE BEEN ENROLLED IN A CHEMICAL DEPENDENCY/SUBSTANCEABUSE PROGRAM, SOME INFORMATION MAY BE OMITTED. This clinical summary was aggregated from multiple sources. Caution should be exercised in using it in the provision of clinical care. This summary normalizes information from multiple sources, and as a consequence, information in this document may materially change the coding, format and clinical context of patient data. In addition, data may be omitted in some cases. CLINICAL DECISIONS SHOULD BE BASED ON THE PRIMARY CLINICAL RECORDS. [facility] [employer] provides no warranty or guarantee of the accuracy or completeness of information in this document.
[2023-11-09 10:01] VITALS: BP 161/90; PULSE 64; RESP 16; TEMP 36.3
[2023-11-09 11:02] VITALS: BP 117/75; BP 132/63; PULSE 61; PULSE 66; RESP 18; O2SAT 93; O2SAT 96
--- NOTE | 2023-11-09 11:04 | W.PM.PROCNOT ---
Date of procedure: 11/09/23 Pre-op diagnosis: Cervical spondylosis Post-op diagnosis: same as pre-op Procedure: Procedure: Left C5-6, 6-7 medial branch block Medications: Bupivacaine 0.25% 3cc The patient was seen and examined in the preoperative holding area.? The informed consent was obtained and placed on the chart.? The patient was brought to the medical procedure unit and placed in the prone position.? A timeout was completed verifying correct patient, procedure site, positioning, plan, and special equipment.? Using aseptic technique, the needle is placed at left C5. Under direct fluoroscopic visualization, a Quincke tip needle was advanced to the midpoint of the waist of the articular pillar at the respective medial branch segment. The above-mentioned injectate was placed in a 1 mL aliquot proceeded by negative aspiration.? The needle was removed.? The procedure was completed at left C6, 7. Insertion site was covered.? Patient was taken to the postprocedural recovery area and monitored for an appropriate length of time before found suitable for discharge in the accompaniment of a responsible adult. Anesthesia: Local Surgeon: Chikis May Pathology: none sent Condition: stable Disposition: no change
[2023-11-09] MEDS: LIDOCAINE HCL 2% PF 100 MG/5 ML VIAL 2 ML INJ (11:05)
[2023-11-09] MEDS: BUPIVACAINE HCL 0.25% PF 25 MG/10 ML VIAL 3 ML INJ (11:05)
== END 2023-11-09 11:18 | disposition home or self-care (01) ==
PROVIDERS: PCP Internal Medicine; Visit Provider Anesthesiology
DX: M47.812 Spondylosis without myelopathy or radiculopathy, cervical region (principal)
CPT/HCPCS: 64490; 64491; J0665

== ENCOUNTER 2023-11-19 13:33 | Outpatient (OUT) | payer MEDICARE, SELFPAY ==
--- NOTE | 2023-11-19 12:45 | P.CN_ITS ---
Consult Note: HPI Data of Consult Patient: known to practice within the last 3 years Consult date: 06/29/23 Requesting Physician: Deysi Zhou NP Primary Care Provider: Shaikh Reyes MD Consult Narrative Reason for consult: Left neck and shoulder pain Narrative: Pleasant 63yof who presents for assessment. Notes persistence of pain from left neck and shoulder. Cervical imaging reviewed, which is significant for moderate to severe spondylosis at C5-6 and C6-7. Completed physical therapy and continues in provider directed home exercise program >6 weeks, with limited benefit. Has had left shoulder injection previously, with limited benefit. Currently taking gabapentin 300mg TID without benefit. Denies adverse medication side effects. recently underwent left C5/6 C6/7 facet medial branch block #1 with no improvement cc:: CC: Deysi Zhou NP Review of Systems ROS Status of ROS 10 or more systems reviewed and unremark able except as noted in history and below Musculoskeletal Reports: neck pain and joint pain Meds Home Medications and Allergies Home Medications Medication Instructions Recorded Confirmed Type acetaminophen 325 mg tablet 650 mg PO Q6H PRN pain 06/22/23 11/09/23 History (Tylenol) nabumetone 500 mg tablet 500 mg PO BID 06/22/23 11/09/23 History oxycodone 5 mg capsule 5 mg PO BID 06/22/23 11/09/23 History TUMERIC QDAY 06/24/23 History Vitamin B-Complex QDAY 06/24/23 History alendronate 35 mg tablet 35 mg PO QWEEK 06/24/23 11/09/23 History allopurinol 100 mg tablet 100 mg PO BID 06/24/23 11/09/23 History ascorbate calcium (vitamin C) 500 500 mg PO DAILY 06/24/23 11/09/23 History mg tablet bromelains 375 mg capsule mg PO 06/24/23 History calcium carb-ergocalciferol (vit tab PO 06/24/23 History D2) 600 mg calcium-200 unit tablet carvedilol 25 mg tablet (Coreg) 25 mg PO Q12H 06/24/23 11/09/23 History cholecalciferol (vitamin D3) 50 50 mcg PO DAILY 06/24/23 11/09/23 History mcg (2,000 unit) tablet (D3 DOTS) cinnamon bark 500 mg capsule 1,000 mg PO DAILY 06/24/23 11/09/23 History (Cinnamon) coenzyme Q10 100 mg capsule (Co 200 mg PO DAILY 06/24/23 11/09/23 History Q-10) cranberry extract 500 mg capsule 500 mg PO DAILY 06/24/23 11/09/23 History diphenhydramine HCl 50 mg capsule 100 mg PO QDAY 06/24/23 11/09/23 History evening primrose oil 500 mg capsule 500 mg PO DAILY 06/24/23 11/09/23 History famotidine 20 mg tablet (Pepcid) 20 mg PO DAILY 06/24/23 11/09/23 History gabapentin 300 mg capsule 300 mg PO TID 06/24/23 11/09/23 History garlic 1,000 mg capsule (garlic 1,000 mg PO DAILY 06/24/23 11/09/23 History oil) ginkgo biloba 120 mg tablet 120 mg PO DAILY 06/24/23 11/09/23 History glucosamine sulfate 1,000 mg 1,000 mg PO DAILY 06/24/23 11/09/23 History capsule grape seed extract 50 mg capsule 100 mg PO DAILY 06/24/23 11/09/23 History green tea leaf extract 250 mg 500 mg PO QDAY 06/24/23 11/09/23 History capsule (Green Tea) hydrochlorothiazide 25 mg tablet 25 mg PO DAILY 06/24/23 11/09/23 History loratadine 10 mg capsule 10 mg PO DAILY 06/24/23 11/09/23 History losartan 100 mg tablet 100 mg PO DAILY 06/24/23 11/09/23 History melatonin 10 mg tablet 20 mg PO DAILY 06/24/23 11/09/23 History multivitamin 1 tab PO DAILY 06/24/23 11/09/23 History omega 3-yrr-hrn-fish oil 1,000 mg 2 cap PO DAILY 06/24/23 11/09/23 History (120 mg-180 mg) capsule (Fish Oil) paroxetine HCl 10 mg tablet (Paxil) 10 mg PO DAILY 06/24/23 11/09/23 History simvastatin 20 mg tablet 20 mg PO DAILY 06/24/23 11/09/23 History vitamin E 200 unit capsule 200 unit PO DAILY 06/24/23 11/09/23 History Allergies Allergy/AdvReac Type Severity Reaction Status Date / Time aspirin Allergy Mild unkown Verified 11/09/23 10:11 Exam Narrative Exam Narrative: Psych-alert and oriented x 3.? Attentive and appropriate, constitutionally normal, displays normal mood and affect per situation.? There are no obvious deficits in memory, reasoning, or intellect.? Skin-no obvious rashes, bruising, or erythema noted to the patient's area of pain. Extremities-upper extremities are warm with minimal edema and palpable pulses. Cervical- tenderness to palpation noted in the cervical spine and paraspinal musculature.? Pain is elicited with extension, and lateral rotation of the cervical spine.? Range of motion is slightly diminished due to pain. Facet loading maneuvers are positive on the left.? Coordination remains intact.? Gait remains non-antalgic. Constitutional Documenting provider has reviewed patient's vital signs: yes Common normals: no apparent distress, oriented x3, healthy appearing, alert and well nourished General appearance: cooperative [facility] Common normals: normocephalic, hearing grossly normal bilaterally and moist oral mucous membranes Head and scalp: normocephalic Eye Common normals: PERRL Pupil: PERRL Neck & C-Spine Common normals: full ROM General: normal visual inspection Chest Common normals: inspection of chest normal Respiratory Common normals: normal respiratory effort, no retractions and no use of accessory muscles Extremity Left upper extremity: shoulder joint Other: left shoulder limited ROM, unable to lift arm above head, weakness to LUE 4/5 sensation intact posterior lift off positive, positive apley scratch test Neuro Common normals: oriented x3, CN's II-XII intact bilaterally, moves all extremities, no focal motor deficits, no sensory deficits noted and deep tendon reflexes 2+ bilaterally Sensorium/orientation: alert Motor exam: strength 5/5 throughout and no movement abnormalities noted Psych Common normals: mental status grossly normal, thought process normal, cooperative, affect normal, speech normal and activity/motor behavior normal Speech: normal speech Thought process: normal thought process Results Additional Findings Additional findings: I have checked an OARRS report on this patient today and there are no aberrancies noted in the prescribing history.?? A drug screen was completed and reviewed within the last year, and if there has not been a drug screen completed we ordered one today to monitor higher risk, state monitored pain medication use. As part of providing excellent, safe, comprehensive care, the following was completed at our patient's visit: 1. A medication reconciliation and review to ensure accurate knowledge of current/active medications, including asking our patients to inform us about any [id number]-dyt-[id number] medications or herbal remedies/nutritional supplements/alternative remedies. 2. A review to specifically ensure our patients have had annual screening for: elevated body mass index (BMI), tobacco use, screening for depression, and screening for unhealthy alcohol use. When screening is concerning, patients are provided with education and the specific recommendation to discuss the concerning health issue and treatment options with their primary care provider. Assessment and Plan Assessment and Plan (1) Cervical spondylosis: (2) Rotator cuff tear arthropathy of left shoulder: (3) Osteoarthritis of left shoulder: Plan continue current medications f/u with orthopedics f/u PRN, if nonsurgical we can try left suprascapular/axillary NB working towards RFA
== END 2023-11-19 13:34 | disposition home or self-care (01) ==
LOC: PM 13:34
PROVIDERS: PCP Internal Medicine; Visit Provider Nurse Practitioner
DX: M47.812 Spondylosis without myelopathy or radiculopathy, cervical region (principal); M12.812 Other specific arthropathies, not elsewhere classified, left shoulder; M19.012 Primary osteoarthritis, left shoulder
CPT/HCPCS: G0463

== ENCOUNTER 2024-01-07 15:33 | Outpatient (OUT) | payer MEDICARE, SELFPAY ==
--- NOTE | 2024-01-07 15:34 | MM_ITS ---
Patient Name: BLANCA BUTLER MR#: [id number] : 1960 Exam Date: 01/07/2024 Ordering Doctor: Shaikh Joan Chambers . RADIOLOGY REPORT PROCEDURE: MM TOMOSYNTHESIS SCREENING BI COMPARISON: MG MAMM SARITHA SCRN W CAD DIG, 08/25/2013. MG MAMM SARITHA SCRN W CAD DIG, 08/24/2008. MG MAMM SARITHA DIAG W CAD DIG, 10/01/2007. INDICATIONS: screening Calculator Name NCI Breast Cancer Risk Assessment Tool 5 Year Breast Cancer Risk 3.10% Lifetime Breast Cancer Risk 11.40% Personal Breast Cancer No Personal Ovarian Cancer No Treatments None Family Cancers Mother with breast cancer at age ~50. LOCATION: [facility] BREAST COMPOSITION: Scattered areas fibroglandular density. FINDINGS: DIAGNOSTIC CATEGORY 2--BENIGN FINDING: RIGHT BREAST: No significant suspicious finding. No significant change has occurred. LEFT BREAST: No significant suspicious finding. Scattered benign-appearing nodules are present. No suspicious change has occurred. RECOMMENDATIONS: ROUTINE MAMMOGRAM AND CLINICAL EVALUATION IN 12 MONTHS. PLEASE NOTE: A NORMAL MAMMOGRAM DOES NOT EXCLUDE THE POSSIBILITY OF BREAST CANCER. A CLINICALLY SUSPICIOUS PALPABLE LUMP SHOULD BE BIOPSIED. Dictated by: Jovanni Millan M.D. on 01/08/2024 at 11:49 Approved by: Jovanni Millan M.D. on 01/08/2024 at 11:52
== END 2024-01-07 15:34 | disposition home or self-care (01) ==
LOC: MAMMO 15:33
PROVIDERS: PCP Internal Medicine; Visit Provider Internal Medicine
DX: Z12.31 Encounter for screening mammogram for malignant neoplasm of breast (principal); Z80.3 Family history of malignant neoplasm of breast
CPT/HCPCS: 77063; 77067

== ENCOUNTER 2024-03-15 15:10 | Outpatient (OUT) | payer MEDICARE, SELFPAY ==
--- NOTE | 2024-03-15 | ECG_ITS ---
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
== END 2024-03-15 15:11 | disposition home or self-care (01) ==
LOC: CARD 15:16
PROVIDERS: PCP Internal Medicine; Visit Provider Internal Medicine
DX: Z01.810 Encounter for preprocedural cardiovascular examination (principal)
CPT/HCPCS: 93005

== ENCOUNTER 2024-03-16 12:06 | Outpatient (OUT) | payer MEDICARE, SELFPAY ==
--- OUTSIDE RECORDS SUMMARY | 2024-03-16 12:20 | XMS_ITS ---
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 Supervisor Name Role Phone UNKNOWN, PHYSICIAN Primary Care Unavailable UNKNOWN, PHYSICIAN Referring Unavailable HERMINIO ROBERTS Admitting Unavailable HERMINIO ROBERTS Attending Unavailable HERMINIO ROBERTS Surgeon Unavailable PA Procedure Practitioner Unavailab PATRICIA GarciaIKH H Consulting Unavailable FAWWAD, WHITFIELD H Attending Unavailable FAWWAD, WHITFIELD H Admitting Unavailable FAWWAD, WHITFIELD H Primary Care Unavailable FAWWAD, WHITFIELD H Attending Unavailable FAWWAD, WHITFIELD H Admitting Unavailable ZIEBBETTY, DR JOVANNI Ashraf Consulting Unavailable FAWWAD, WHITFIELD H Primary Care Unavailable FAWWAD, WHITFIELD H Consulting Unavailable FAWWAD, WHITFIELD H Consulting Unavailable FAWWAD, WHITFIELD H Attending Unavailable FAWWAD, WHITFIELD H Admitting Unavailable FAWWAD, WHITFIELD H Primary Care Unavailable FAWWAD, WHITFIELD H Primary Care Unavailable WEST, DR MARIA ANTONIA Toro Admitting Unavailable WEST, DR MARIA ANTONIA Toro Consulting Unavailable WEST, DR MARIA ANTONIA Toro Attending Unavailable FAWWAD, WHITFIELD H Primary Care Unavailable WEST, DR MARIA ANTONIA Toro Attending Unavailable WEST, DR MARIA ANTONIA Toro Admitting Unavailable WEST, DR MARIA ANTONIA Toro Consulting Unavailable CAITY, DR JOVANNI Ashraf Consulting Unavailable FAWWAD, WHITFIELD H Primary Care Unavailable WEST, DR MARIA ANTONIA Toro Attending Unavailable ANAMARIA, DR MARIA ANTONIA Toro Admitting Unavailable WEST, DR MARIA ANTONIA Toro Consulting Unavailable FAUSTINOEBBETTY, DR JOVANNI Ashraf Consulting Unavailable FAWWAD, WHITFIELD H Primary Care Unavailable WEST, DR MARIA ANTONIA Toro Attending Unavailable ANAMARIA, DR MARIA ANTONIA Toro Admitting Unavailable WEST, DR MARIA ANTONIA Toro Consulting Unavailable CAITY, DR JOVANNI Ashraf Consulting Unavailable FAWWAD, WHITFIELD H Primary Care Unavailable WEST, DR MARIA ANTONIA Toro Attending Unavailable WEST, DR MARIA ANTONIA Toro Admitting Unavailable DR MARIA ANTONIA CONRAD V Consulting Unavailable SHAIKH Gerson CHAMBERS Attending Unavailable SHAIKH Gerson HCAMBERS Admitting Unavailable DR JOVANNI MILLAN Consulting Unavailable SHAIKH Gerson CHAMBERS Primary Care Unavailable SHAIKH Gerson CHAMBERS Consulting Unavailable Reyes PALACIO, Primary Care Provider Lalo PALACIO, Chikis Henderson Attending Unavailable Lalo PALACIO, Andshukri Henderson Attending Unavailable Lalo PALACIO, Andshukri Henderson Attending Unavailable SHAIKH CHAMBERS Attending Unavailable REYES, Attending Unavailable SHAIKH CHAMBERS Attending Unavailable Allergies Allergy Classification Reported Allergen(s) Allergy Type Date of Onset Reaction(s) Facility Aspirin (1 source) Aspirin; Translations: [ASPIRIN] Drug Allergy 12-26-2020 [facility] Repository (1 source) Amino Acids Drug Allergy [facility] Repository (1 source) Aspirin Drug Allergy [facility] Repository (1 source) Aluminum aspirin Drug Allergy 04-30-2023 Rash [facility] Encounters Encounter Date Encounter Type Care Provider Facility Start: 03-15-2024 End: 03-15-2024 ambulatory SHAIKH REYES Not Available Start: 12-10-2023 End: 12-10-2023 ambulatory SHAIKH REYES Not Available Start: 11-12-2023 Orders Only Shaikh Reyes PALACIO Work Phone: [facility] Comment on above: Chronic left shoulde r pain; Chronic pain of left knee Start: 11-09-2023 End: 11-10-2023 ambulatory Chikis May MD Facility:[facility] Start: 09-08-2023 End: 09-08-2023 ambulatory SHAIKH REYES Not Available Start: 09-08-2023 Patient encounter procedure Shaikh Reyes PALACIO Work Phone: [facility] Start: 06-29-2023 End: 06-30-2023 ambulatory Chikis May MD Facility:[facility] Start: 06-22-2023 End: 06-23-2023 ambulatory Chikis May MD Facility:[facility] Start: 03-03-2023 End: 03-04-2023 ambulatory WHITFIELD H FAWWAD Facility:[facility] Start: 02-25-2023 End: 02-26-2023 ambulatory WHITFIELD H FAWWAD Facility:[facility] Start: 02-09-2023 End: 02-10-2023 ambulatory WHITFIELD H FAWWAD Facility:[facility] Start: 02-02-2023 End: 02-03-2023 ambulatory WHITFIELD H FAWWAD Facility:[facility] Start: 01-08-2023 End: 01-09-2023 ambulatory WHITFIELD H FAWWAD Facility:[facility] Start: 12-17-2022 End: 12-18-2022 ambulatory WHITFIELD H FAWWAD Facility:[facility] Start: 12-15-2022 End: 12-16-2022 ambulatory WHITFIELD H FAWWAD Facility:[facility] Start: 07-21-2022 End: 07-22-2022 ambulatory WHITFIELD H FAWWAD Facility:[facility] Start: 06-16-2022 End: 06-17-2022 ambulatory WHITFIELD H FAWWAD Facility:[facility] Start: 12-31-2020 End: 01-03-2021 ambulatory PHYSICIAN UNKNOWN Facility:[facility] Immunizations Immunization Date Immunization Notes Care Provider Fa [facility] 10-01-2022 influenza virus vacc ine, unspecified formulation Shaikh Reyes PALACIO Work Phone: [facility] Medications Current Medications Medication Drug Class(es) Dates Sig (Normalized) Sig (Original) alendronic acid 35 mg oral tablet (2 sources) Bisphosphonate take 1 tablet by latha once daily alendronate (Fosamax) 35 MG tablet 1 tablet 30 minutes before the first food, beverage or medicine of the day with plain water Orally 0 Active take 1 tablet by mouth every wee k alendronate (Fosamax) 70 MG tablet 1 tablet Orally ONCE WEEKLY 0 Active allopurinol 100 mg oral tablet (1 source) Xanthine Oxidase Inhibitor allopurinol (Zylopri m) 100 MG tablet every 12 (twelve) hours. 0 Active ascorbic acid 60 mg / cholecalciferol 0.01 mg / folic acid 0.3 mg / niacin 13.5 mg / riboflavin 1.2 mg / sodium fluoride 0.55 mg / thiamine 1.05 mg / vitamin a 0.75 mg / vitamin b12 0.0045 mg / vitamin b6 1.05 mg / vitamin e 6.75 mg chewable tablet (1 source) Nicotinic Acid, Vitamin A, Vitamin B12, Vitamin D, Vitamin C Pediatric Multivitamins-Fl (MultiVitamin + Fluoride) 0.25 MG chewable tablet Multivitamin 0 Active B Complex Vitamins (VITAMIN B COMPLEX 100 IJ) (1 source) B Complex Vitami ns (VITAMIN B COMPLEX 100 IJ) Vitamin B Complex 0 Active calcium carbonate 1500 mg oral tablet (1 source) calcium carbonat e 1500 (600 Ca) MG tablet every 12 (twelve) hours. 0 Active carvedilol 25 mg oral tablet (1 source) alpha-Adrenergic Steph, beta-Adrenergic Steph carvedilol (Coreg) 2 5 MG tablet every 12 (twelve) hours. 0 Active cholecalciferol 0.025 mg oral capsule (1 source) Vitamin D cholecalciferol (Vitamin D-3) 25 MCG (1000 UT) capsule 1 capsule 1 (one) time each day at the same time. 0 Active cinnamon bark 500 mg oral capsule (1 source) cinnamon 500 MG capsule as directed Orally 0 Active cranberry preparation 500 mg oral capsule (1 source) Non-Standardized Food Allergenic Extract, Non-Standardized Plant Allergenic Extract Cranberry 500 MG cap jazmín as directed Orally 0 Active evening primrose oil 1000 mg oral capsule (1 source) Evening [place] Oil 1000 MG capsule as directed Orally 0 Active famotidine 20 mg oral tablet (1 source) Histamine-2 Receptor Antagonist famotidine (Pepcid) 20 MG tablet 1 (one) time each day at the same time. 0 Active Fish Oils (1 source) omega-3 (FISH OI L) 300 MG capsule Fish Oil 0 Active gabapentin 300 mg oral capsule (1 source) Anti-epileptic Agent Start: 2022 take 1 capsule by mouth in the morning, then take 1 capsule by mouth in the evening, then take 1 capsule by mouth at bedtime gabapentin (Neurontin) 300 MG capsule Take 300 mg by mouth in the morning and 300 mg in the evening and 300 mg before bedtime. 0 08/23/2023 Active Garlic preparation (1 source) Non-Standardized Food Allergenic Extract Garlic 2 MG capsule Garlic 0 Active Ginkgo biloba extract (1 source) Ginkgo Biloba 40 MG tablet Ginko Biloba 0 Active glucosamine sulfate 1000 mg oral capsule (1 source) Glucosamine Sulf ate 1000 MG capsule 1 (one) time each day at the same time. 0 Active Grape Seed Extract (1 source) Grape Seed Extra ct 30 MG capsule Grape Seed Extract 0 Active hydroCHLOROthiazide 25 mg oral tablet (1 source) Thiazide Diuretic Start: 2022 End: 2023 take 1 tablet by mouth in the morning hydroCHLOROthiazide (HYDRODiuril) 25 MG tablet Indications: Primary hypertension (CMS/HCC) Take 1 tablet (25 mg) by mouth in the morning. 90 tablet 1 09/15/2023 03/13/2024 Active loratadine 10 mg oral tablet (1 source) loratadine (Clar itin) 10 MG tablet 1 (one) time each day at the same time. 0 Active losartan potassium 100 mg oral tablet (1 source) Angiotensin 2 Receptor Steph losartan (Cozaar) 10 0 MG tablet 1 (one) time each day at the same time. 0 Active nabumetone 500 mg oral tablet (1 source) Nonsteroidal Anti-inflammatory Drug Start: 2023 End: 2023 take 1 tablet by mouth in the morning nabumetone (Relafen) 500 MG tablet Indications: Chronic left shoulder pain , Chronic pain of left knee Take 1 tablet (500 mg) by mouth in the morning and 1 tablet (500 mg) before bedtime. 60 tablet 2 10/08/2023 01/06/2024 Active oxyCODONE hydrochloride 5 mg oral tablet (2 sources) Opioid Agonist Start: 2023 End: 2023 take 1 tablet by mouth once oxyCODONE (Roxicodone) 5 MG immediate release tablet Indications: Chronic left shoulder pain , Chronic pain of left knee Take 1 tablet (5 mg) by mouth every 12 (twelve) hours if needed for moderate pain 60 tablet 0 11/12/2023 12/12/2023 Active PARoxetine hydrochloride 20 mg oral tablet (1 source) Serotonin Reuptake Inhibitor PARoxetine (Paxil) 2 0 MG tablet 1 (one) time each day at the same time. 0 Active simvastatin 20 mg oral tablet (1 source) HMG-CoA Reductase Inhibitor simvastatin (Zocor) 20 MG tablet 1 (one) time each day at the same time. 0 Active Turmeric Curcumin 500 MG capsule (1 source) Turmeric Curcumi n 500 MG capsule as directed Orally 0 Active ubidecarenone 100 mg / vitamin e 5 unt oral capsule (1 source) coenzyme Q-10 10 0 MG capsule as directed Orally 0 Active vitamin e d-alpha 400 unt oral capsule (1 source) alpha tocopherol (Vitamin E) 400 units capsule 1 capsule 1 (one) time each day at the same time. 0 Active Payers Date Payer Category Payer Unknown 2021 Medicare [employer] MEDIC[employer] ADVANTAGE [facility] MEDICARE ADVANTAGE [id number] 2021-Present [address] [place] [address] [id number] 1961 Unknown [id number] 1960 Unknown [id number] 1960 Unknown [id number] [id number] 1960 Unknown [id number] [id number] 1960 Unknown [id number] 2.840.1.406811.3.579.2.593 1960 Unknown [id number] 2.16.840.1.289374.3.579.2.593 1960 Unknown [id number] 2.16.840.1.408778.3.579.2.593 1960 Unknown [id number] 2.16.840.1.178415.3.579.2.593 1960 Unknown [id number] 2.16.840.1.758294.3.579.2.593 1960 Unknown [id number] 2.16.840.1.807834.3.579.2.593 1960 Unknown [id number] 2.16.840.1.871571.3.579.2.593 1960 Unknown [id number] 2.16.840.1.769373.3.579.2.196 1960 Unknown [id number] 2.16.840.1.222614.3.579.2.196 1960 Unknown [id number] 2.16.840.1.368568.3.579.2.196 1960 Unknown [id number] 2.16.840.1.564351.3.579.2.125 9 1960 Unknown [id number] 2.16.840.1.099205.3.579.2.125 9 1960 Unknown [id number] 2.16.840.1.037926.3.579.2.125 9 Plan of Treatment Date Care Activity Detail Author Start: 10-05-2027 Screening for malign ant neoplasm of colon [facility] Start: 09-08-2024 Medicare Annual Well ness (AWV) Medicare Annual Wellness (AWV) [facility] Start: 09-08-2024 Screening for malign ant neoplasm of breast Mammogram [facility] Start: 12-09-2023 End: 12-09-2023 Patient encounter procedure 12/09/2023 3:30 PM EST Office Visit [facility] [address] [place] [id number] Shaikh Chambers MD [address] [place] [id number] [facility] Start: 06-05-2023 Influenza vaccination Influenza Vacc ine (#1) [facility] Start: 2023 Pneumococcal Vaccine : 65+ Years (1 - PCV) Pneumococcal Vaccine: 65+ Years (1 - PCV) [facility] Start: 1988 Screening for malign ant neoplasm of cervix [facility] Start: 1979 Screening for malign ant neoplasm of cervix Pap Smear [facility] Start: 1960 Screening for malign ant neoplasm of colon [facility] Problems Active Problems Problem Classification Problem Date Documented Da te Episodic/Chronic Diabetes mellitus without complication (5 sources) Type 2 diabetes mellitus without complications; Translations: [TYPE 2 DM WITHOUT COMPLICATIONS] Onset: 2 Chronic Disorders of lipid metabolism (2 sources) Hyperlipidemia, unspecified; Translations: [Mixed hyperlipidemia] Onset: 3 09-08-2023 Chronic Essential hypertension (2 sources) Essential (primary) hypertension; Translations: [Essential hypertension] Onset: 3 09-08-2023 Chronic Gout and other crystal arthropathies (4 sources) Gout, unspecified; Translations: [GOUT UNSPECIFIED] Onset: 3 Chronic Osteoarthritis (9 sources) Primary osteoarthritis, left shoulder; Translations: [Primary osteoarthritis, right shoulder] Onset: 3 04-30-2023 Chronic Other aftercare (4 sources) Encounter for surgical aftercare following surgery on the circulatory system; Translations: [ENC SURG AFTRCARE FLW SURG CIRC SYS] Onset: 3 Episodic Other connective tissue disease (1 source) Nontraumatic complete rupture of rotator cuff of left shoulder; Translations: [Complete rotator cuff tear or rupture of left shoulder, not specified as traumatic] Onset: 3 09-08-2023 Episodic Other nervous system disorders (1 source) Difficulty walking; Translations: [Difficulty in walking, not elsewhere classified] Onset: 3 04-30-2023 Chronic Other nervous system disorders (1 source) Chronic pain; Translations: [Other chronic pain] Onset: 3 04-30-2023 Chronic Other non-traumatic joint disorders (4 sources) Pain in right knee; Translations: [PAIN IN RIGHT KNEE] Onset: 3 Episodic Other non-traumatic joint disorders (3 sources) Pain in left knee; Translations: [Pain in joint, lower leg] Onset: 3 11-12-2023 Episodic Other non-traumatic joint disorders (1 source) Pain in right hip; Translations: [PAIN IN RIGHT HIP] Onset: 3 Episodic Other non-traumatic joint disorders (1 source) Pain in right shoulder; Translations: [PAIN IN RIGHT SHOULDER] Onset: 3 Episodic Other non-traumatic joint disorders (1 source) Pain in left shoulder; Translations: [PAIN IN LEFT SHOULDER] Onset: 3 Episodic Other non-traumatic joint disorders (2 sources) Chronic pain of left upper limb; Translations: [Pain in left shoulder] Onset: 3 11-12-2023 Episodic Phlebitis; thrombophlebitis and thromboembolism (2 sources) [...] Classification Problem Date Documented Da te Episodic/Chronic Other non-traumatic joint disorders (1 source) Hip pain; Translations: [Pain in unspecified hip] Onset: 04-30-2023 04-30-2023 Episodic Screening and history of mental health and substance abuse codes (4 sources) Personal history of nicotine dependence; Translations: [PERSONAL HISTORY OF NICOTINE DEPEND] Onset: 07-21-2022 Episodic Procedures Date Procedure Procedure Detail Performing Clinician Start: 09-08-2023 Mammography Shaikh Mayelin rankin MD Work Phone: Start: 12-31-2020 ANESTH HIP ARTHROPLASTY HERMINIO ROBERTS Start: 12-31-2020 JOINT DEVICE (IMPLANTABLE) HERMINIO ROBERTS Start: 12-31-2020 TOTAL HIP ARTHROPLASTY HERMINIO ROBERTS Start: 10-05-2017 Colonoscopy Shaikh Mayelin rankin MD Work Phone: Results Test Name Value Interpretation Reference Range Facility VC CONSULT FOLLOWUPon 2022 VC CONSULT FOLLOWUP Patient: BLANCA ENRIQUEZ Exam Date: 03/03/2023 : 1960 Gender:F Ordering : DR MARIA ANTONIA CONRAD M.D. Admission #: [id number] Family : Order #: [id number] CLICK HERE TO VIEW EXAM RADIOLOGY REPORT [...] Conrad MD on 03/03/2023 at 13:46 Normal [facility] VC EXT VENOUS RT LIMITEDon 0 03-03-2023 VC EXT VENOUS RT LIMITED Patient: BLANCA ENRIQUEZ Exam Date: 03/03/2023 : 1960 Gender:F Ordering : DR MARIA ANTONIA CONRAD M.D. Admission #: [id number] Family : Order #: [id number] CLICK HERE TO VIEW EXAM RADIOLOGY REPORT [...] Conrad MD on 03/03/2023 at 13:10 Normal [facility] VC ENDOVENOUS ABL 1ST V RTon 02-25-2023 VC ENDOVENOUS ABL 1ST V RT Patient: BLANCA ENRIQUEZ Exam Date: 02/25/2023 : 1960 Gender:F Ordering : DR MARIA ANTONIA CONRAD M.D. Admission #: [id number] Family : Order #: [id number] CLICK HERE TO VIEW EXAM RADIOLOGY REPORT PROCEDURE: VEIN CENTER ENDOVENOUS ABLATION FIRST VEIN RIGHT COMPARISON: VC VENOUS REFLUX SARITHA LMT, 01/08/2023. INDICATIONS: Pain co-occurrent and due to varicose veins of bilateral legs I83.813 OPERATIVE REPORT: The risks and benefits of the procedure had been previously discussed, and were rediscussed at length. Informed written consent was obtained by me and Darnell espinal. Time out procedure was performed. The right [...] Millan M.D. on 02/25/2023 at 15:01 Normal [facility] VC CONSULT FOLLOWUPon 2022 VC CONSULT FOLLOWUP Patient: BLANCA ENRIQUEZ Exam Date: 02/09/2023 : 1960 Gender:F Ordering : DR MARIA ANTONIA CONRAD M.D. Admission #: [id number] Family : Order #: [id number] CLICK HERE TO VIEW EXAM RADIOLOGY REPORT [...] Millan M.D. on 02/09/2023 at 11:43 Normal [facility] VC EXT VENOUS LT LIMITEDon 0 02-09-2023 VC EXT VENOUS LT LIMITED Patient: BLANCA ENRIQUEZ Exam Date: 02/09/2023 : 1960 Gender:F Ordering : DR MARIA ANTONIA CONRAD M.D. Admission #: [id number] Family : Order #: [id number] CLICK HERE TO VIEW EXAM RADIOLOGY REPORT [...] Millan M.D. on 02/09/2023 at 11:35 Normal [facility] VC ENDOVENOUS ABL 1ST V LTon 02-02-2023 VC ENDOVENOUS ABL 1ST V LT Patient: BLANCA ENRIQUEZ Exam Date: 02/02/2023 : 1960 Gender:F Ordering : DR MARIA ANTONIA CONRAD M.D. Admission #: [id number] Family : Order #: [id number] CLICK HERE TO VIEW EXAM RADIOLOGY REPORT PROCEDURE: VEIN CENTER ENDOVENOUS ABLATION FIRST VEIN LEFT COMPARISON: VC VENOUS REFLUX SARITHA LMT, 01/08/2023. INDICATIONS: Pain co-occurrent and due to varicose veins of bilateral legs I83.813 OPERATIVE REPORT: The risks and benefits of the procedure had been previously discussed, and were rediscussed at length. Informed written consent was obtained by me and Darnell Sosa assisted. Time out procedure was performed. The left [...] Millan M.D. on 02/02/2023 at 14:17 Normal [facility] VC COMP CONSULTATIONon 01-08 VC COMP CONSULTATION Patient: BLANCA ENRIQUEZ Exam Date: 01/08/2023 : 1960 Gender:F Ordering : DR MARIA ANTONIA CONRAD M.D. Admission #: [id number] Family : Order #: [id number] CLICK HERE TO VIEW EXAM RADIOLOGY REPORT [...] saphenous, mild to moderate right small saphenous [id number] left anterior accessory saphenous vein venous insufficiency [...] Conrad MD on 01/08/2023 at 15:14 Normal [facility] VC VENOUS REFLUX SARITHA LMTon 0 01-08-2023 VC VENOUS REFLUX SARITHA LMT Patient: BLANCA ENRIQUEZ Exam Date: 01/08/2023 : 1960 Gender:F Ordering : DR MARIA ANTONIA CONRAD M.D. Admission #: [id number] Family : Order #: [id number] CLICK HERE TO VIEW EXAM RADIOLOGY REPORT [...] chronic thrombus visualized Compressibility: Normal Flow: Normal Rougher For Cement: Dist/med calf 3.7 mm with 2.4s reflux. [...] Bilateral incompetent varicose veins 5. Left incompetent dental scheduler veins 6. Left suprapatellar fluid collection likely joint effusion and popliteal lesion likely a cyst Dictated by: Maria Antonia Conrad MD on 01/08/2023 at 13:50 Approved by: Maria Antonia Conrad MD on 01/08/2023 at 13:52 Normal [facility] XR KNEE SARITHA 4V or >on 2022 [...] JOVANNI MILLAN Date: 2022-12-17 16:24 Normal [facility] XR SHOULDER SARITHA 2V or >on XR [...] narrowing of the glenohumeral joints with likely [id number] contact. Degenerative osteophyte along the inferior articular [...] JOVANNI MILLAN Date: 2022-12-17 16:32 Normal [facility] CBC AUTO DIFFon 12-15-2022 BASO # 0.1 103/ul Normal 0.0-0.1 [facility] Comment on above: Performed By: #### C BC ####[facility] [id number] [place] [address]Dr. Sarah Napoles Basophils/100 WBC (Bld) 0.8 % Normal 0.2-2.0 [facility] Comment on above: Performed By: #### C BC ####[facility] [id number] [place], [place] [address]Dr. Sarah Napoles EO # 0.2 103/ul Normal 0.0-0.7 [facility] Comment on above: Performed By: #### C BC ####[facility] [id number] [place], [place] [address]Dr. Sarah Napoles Eosinophils/100 WBC (Bld) 2.3 % Normal 0.9-7.0 [facility] Comment on above: Performed By: #### C BC ####[facility] [id number] [place], [place] [address]Dr. Sarah Napoles Erythrocyte distribution width (RBC) [Ratio] 13.2 % Normal 11.0-15.0 [facility] Comment on above: Performed By: #### C BC ####[facility] [id number] [place], [place] [address]Dr. Sarah Napoles Hematocrit (Bld) [Volume fraction] 34.3 % Critically low 36.0-48.0 [facility] Comment on above: Performed By: #### C BC ####[facility] [id number] [place], [place] [address]Dr. Sarah Napoles Hemoglobin (Bld) [Mass/Vol] 11.5 g/dL Critically low 12.0-16.0 [facility] Comment on above: Performed By: #### C BC ####[facility] [id number] [place], [place] [address]Dr. Sarah Napoles IG # 0.02 10e3/ul Normal 0.00-0.03 [facility] Comment on above: Performed By: #### C BC ####[facility] [address] [place] [id number]. Sarah Napoles IG % 0.2 % Normal 0.0-0.5 [facility] Comment on above: Performed By: #### C BC ####[facility] [address] [place] [id number]. Charlinecassie Napoles LYMPH # 1.8 103/ul Normal 1.2-3.8 [facility] Comment on above: Performed By: #### C BC ####[facility] [id number] [place] [address]Dr. Charlinecassie Napoles Lymphocytes/100 WBC (Bld) 19.8 % Critically low 20.5-60.0 [facility] Comment on above: Performed By: #### C BC ####[facility] [address] [place] [address]Dr. Sarah Napoles MANUAL DIFF REQ NO Normal [facility] Comment on above: Performed By: #### C BC ####[facility] [id number] [place] [address]Dr. Charlinecassie Napoles MCH (RBC) [Entitic mass] 32.2 pg Normal 26.7-34.0 [facility] Comment on above: Performed By: #### C BC ####[facility] [address] [place] [address]Dr. Charlinecassie Napoles MCHC (RBC) [Mass/Vol] 33.5 g/dL Normal 29.9-35.2 [facility] Comment on above: Performed By: #### C BC ####[facility] [address] [place] [address]Dr. Charlinecassie Napoles MCV (RBC) [Entitic vol] 96.1 fL Normal 81.0-99.0 [facility] Comment on above: Performed By: #### C BC ####[facility] [address] [place] [address]Dr. Sarah Napoles MONO # 0.8 103/ul Normal 0.3-0.8 [facility] Comment on above: Performed By: #### C BC ####[facility] [address] [place] [id number]. Sarah Napoles Monocytes/100 WBC (Bld) 9.5 % Normal 1.7-12.0 [facility] Comment on above: Performed By: #### C BC ####[facility] [address] [place] [id number]. Sarah Napoles NEUT # 6.0 103/ul Normal 1.4-6.5 [facility] Comment on above: Performed By: #### C BC ####[facility] Cokbcpuvmh[address] [place] [phone]. Sarah Napoles Neutrophils/100 WBC (Bld) 67.4 % Normal 43.0-75.0 [facility] Comment on above: Performed By: #### C BC ####[facility] Ecxhpueifd9[address] [place] [phone]. Sarah Napoles Platelet mean volume (Bld) [Entitic vol] 10.1 fL Normal 9.5-13.5 [facility] Comment on above: Performed By: #### C BC ####[facility] Pcghfsngto35[address] [place] [phone]. Sarah Napoles PLT 283 103/ul Normal 150-450 [facility] Comment on above: Performed By: #### C BC ####[facility] Xswjovurra5[address] [place] [phone]. Sarah Napoles RBC 3.57 106/ul Critically low 4.20-5.40 [facility] Comment on above: Performed By: #### C BC ####[facility] Gglxsndwcw75[address] [place] [phone]. Sarah Napoles WBC 8.8 103/ul Normal 4.0-11.0 [facility] Comment on above: Performed By: #### C BC ####[facility] Peubevrowy[address] [place] [phone]. Sarah Napoles GLYCOHEMOGLOBIN A1Con 2022 ADA RECOMMENDATION SEE BELOW Normal [facility] Comment on above: Result Comment: ADA RECOMMENDED LIMIT 4.0 - 6.0 ADA THERAPEUTIC TARGET < 7.0 ACTION SUGGESTED > 7.0 Performed By: #### A 1C ####[facility] [address]qill[address] [place] [address]Dr. Sarah Napoles Glucose [Mass/Vol] 105 mg/dL Normal [facility] Comment on above: Performed By: #### A 1C ####[facility] Alfvgrvfje[address] [place] [address]Dr. Sarah Napoles HbA1c (Bld) [Mass fraction] 5.3 % Normal 4.5-6.2 [facility] Comment on above: Performed By: #### A 1C ####[facility] Ufaksogvxy[address] [place] [address]Dr. Sarah Napoles LIPID PROFILEon 12-15-2022 CHOL-HDL RATIO NORM SEE BELOW Normal [facility] Comment on above: Result Comment: 3.3 - 4.4 LOW RISK 4.4 - 7.1 AVERAGE RISK 7.1 - 11.0 MODERATE RISK >11.0 HIGH RISK Performed By: #### L IPID, CMP, URIC ####[facility] Svhtfkfvvo[address] [place] [address]Dr. Sarah Napoles Cholesterol [Mass/Vol] 160 mg/dL Normal <=200 [facility] Comment on above: Performed By: #### L IPID, CMP, URIC ####[facility] Zop[address]ippgrr[address] [place] [address]Dr. Charlinecassie Dony Cholesterol in HDL [Mass/Vol] 62 mg/dL Critically high 40-60 [facility] Comment on above: Performed By: #### L IPID, CMP, URIC ####[facility] Qldbayisgl[address] [place] [address]Dr. Charlinecassie Napoles Cholesterol in LDL [Mass/Vol] 75.2 mg/dL Normal [facility] Comment on above: Performed By: #### L IPID, CMP, URIC ####[facility] Itwxoamgqz44[address] [place] [phone]. Charlinecassie Napoles Cholesterol.total/Ch olesterol in HDL [Mass ratio] 2.6 {ratio} Normal [facility] Comment on above: Performed By: #### L IPID, CMP, URIC ####[facility] Kfnjbaddcg78[address] [place] [phone]. Sarah Napoles HDL NORMAL > or = 60 mg/dl - LO W CARDIOVASCULAR RISK <40 mg/dl - HIGH CARDIOVASCULAR RISK Normal [facility] Comment on above: Performed By: #### L IPID, CMP, URIC ####[facility] Snntnhilhj[address] [place] [address]Dr. Sarah Napoles LDL CALC NORMAL SEE BELOW Normal [facility] Comment on above: Result Comment: <100 mg/dl OPTIMAL 100 - 129 mg/dl NEAR OR ABOVE OPTIMAL 130 - 159 mg/dl BORDERLINE HIGH 160 - 189 mg/dl HIGH >190 mg/dl VERY HIGH Performed By: #### L IPID, CMP, URIC ####[facility] Oxqtvjkbic[address] [place] [address]DrJudy Napoles Triglyceride [Mass/Vol] 114 mg/dL Normal <=150 [facility] Comment on above: Performed By: #### L IPID, CMP, URIC ####[facility] Elceiytadi[address] [place] [phone] Napoles VLDL CALC 22.8 mg/dL Normal [facility] Comment on above: Performed By: #### L IPID, CMP, URIC ####[facility] Bdyrqqsdka1123 [place] [phone] Napoles PROF 14(COMP METB)on 023 Albumin [Mass/Vol] 4.3 g/dL Normal 3.4-5.0 [facility] Comment on above: Performed By: #### L IPID, CMP, URIC #### [facility] Laboratory [address] [address] [address] Sarah Napoles Albumin/Globulin [Mass ratio] 1.3 {ratio} Normal [facility] Comment on above: Performed By: #### L IPID, CMP, URIC #### [facility] Laboratory [address] [address] [address] Sarah Napoles ALP [Catalytic activity/Vol] 71 U/L Normal 46-116 [facility] Comment on above: Performed By: #### L IPID, CMP, URIC #### [facility] Laboratory [address] [address] [address] Sarah Napoles ALT [Catalytic activity/Vol] 25 U/L Normal 14-59 [facility] Comment on above: Performed By: #### L IPID, CMP, URIC #### [facility] Laboratory [address] [address] [address] Sarah Napoles Anion gap [Moles/Vol] 11.8 mmol/L Normal [facility] Comment on above: Performed By: #### L IPID, CMP, URIC #### [facility] Laboratory [address] [address] [address] Sarah Napoles AST [Catalytic activity/Vol] 22 U/L Normal 15-37 [facility] Comment on above: Performed By: #### L IPID, CMP, URIC #### [facility] Laboratory [address] [place] [address] Dr. Sarah Napoles Bilirubin [Mass/Vol] 0.3 mg/dL Normal 0.2-1.0 [facility] Comment on above: Performed By: #### L IPID, CMP, URIC #### [facility] Laboratory [address] [place] [address] Dr. Sarah Napoles Calcium [Mass/Vol] 9.8 mg/dL Normal 8.5-10.1 [facility] Comment on above: Performed By: #### L IPID, CMP, URIC #### [facility] Laboratory [address] [place] [address] Dr. Sarah Napoles Chloride [Moles/Vol] 101 mmol/L Normal 98-107 [facility] Comment on above: Performed By: #### L IPID, CMP, URIC #### [facility] Laboratory [address] [place] [address] Dr. Sarah Napoles CO2 [Moles/Vol] 29.5 mmol/L Normal 21.0-32.0 [facility] Comment on above: Performed By: #### L IPID, CMP, URIC #### [facility] Laboratory [address] [place] [address] Dr. Sarah Napoles Creatinine [Mass/Vol] 0.63 mg/dL Normal 0.55-1.02 [facility] Comment on above: Performed By: #### L IPID, CMP, URIC #### [facility] Laboratory [address] [address] [address] Sarah Napoles EGFR-AF INDONESIAN >60 Normal >=60 [facility] Comment on above: Performed By: #### L IPID, CMP, URIC #### [facility] Laboratory [address] [address] [address] Sarah Napoles EGFR-NON AF INDONESIAN >60 Normal >=60 [facility] Comment on above: Performed By: #### L IPID, CMP, URIC #### [facility] Laboratory [address] [address] [address] Sarah Napoles Globulin (S) [Mass/Vol] 3.4 g/dL Normal [facility] Comment on above: Performed By: #### L IPID, CMP, URIC #### [facility] Laboratory [address] [address] [address] Sarah Napoles Glucose [Mass/Vol] 92 mg/dL Normal 74-106 [facility] Comment on above: Performed By: #### L IPID, CMP, URIC #### [facility] Laboratory [address] [address] [address] Sarah Napoles Potassium [Moles/Vol] 4.3 mmol/L Normal 3.5-5.1 [facility] Comment on above: Performed By: #### L IPID, CMP, URIC #### [facility] Laboratory [address] [address] [address] Sarah Napoles Protein [Mass/Vol] 7.7 g/dL Normal 6.4-8.2 [facility] Comment on above: Performed By: #### L IPID, CMP, URIC #### [facility] Laboratory [address] [address] [address] Sarah Napoles Sodium [Moles/Vol] 138 mmol/L Normal 136-145 [facility] Comment on above: Performed By: #### L IPID, CMP, URIC #### [facility] Laboratory [address] [place], [place] [address] Dr. Sarah Napoles Urea nitrogen [Mass/Vol] 25.0 mg/dL Critically high 7.0-18.0 [facility] Comment on above: Performed By: #### L IPID, CMP, URIC #### [facility] Laboratory [address] [place], [place] [address] Dr. Sarah Napoles Urea nitrogen/Creatinine [Mass ratio] 39.7 mg/mg Normal [facility] Comment on above: Performed By: #### L IPID, CMP, URIC #### [facility] Laboratory [address] [place], [place] [address] Dr. Sarah Napoles URIC ACID SERUMon 12-15-2022 Urate [Mass/Vol] 3.7 mg/dL Normal 2.6-6.0 [facility] Comment on above: Performed By: #### L IPID, CMP, URIC ####[facility] U[address]jokl[address] [place], [place] [address]. Sarah Napoles CT LUNG CANCER SCREENINGon 1 [...] JOVANNI MILLAN Date: 2022-07-21 22:18 Normal [facility] CBC AUTO DIFFon 06-16-2022 BASO # 0.1 103/ul Normal 0.0-0.1 [facility] Comment on above: Performed By: #### C BC ####[facility] Lheyafzcma[address] [place] [address]Dr. Sarah Napoles Basophils/100 WBC (Bld) 0.9 % Normal 0.2-2.0 [facility] Comment on above: Performed By: #### C BC ####[facility] Qnofns[address]klc[address] [place], [place] [address]Dr. Sarah Napoles EO # 0.2 103/ul Normal 0.0-0.7 [facility] Comment on above: Performed By: #### C BC ####[facility] [address] [place], [place] [address]Dr. Sarah Napoles Eosinophils/100 WBC (Bld) 2.5 % Normal 0.9-7.0 [facility] Comment on above: Performed By: #### C BC ####[facility] Yaurxiwxqr[address] [place], [place] [address]Dr. Sarah Napoles Erythrocyte distribution width (RBC) [Ratio] 13.4 % Normal 11.0-15.0 [facility] Comment on above: Performed By: #### C BC ####[facility] Fdyw[address] [place], [place] [address]Dr. Sarah Napoles Hematocrit (Bld) [Volume fraction] 33.3 % Critically low 36.0-48.0 [facility] Comment on above: Performed By: #### C BC ####[facility] [address] [place], [place] [address]Dr. Sarah Napoles Hemoglobin (Bld) [Mass/Vol] 10.8 g/dL Critically low 12.0-16.0 [facility] Comment on above: Performed By: #### C BC ####[facility] [address] [place], [place] [address]Dr. Sarah Napoles IG # 0.03 10e3/ul Normal 0.00-0.03 [facility] Comment on above: Performed By: #### C BC ####[facility] Tmjof[address]gu[address] [place], [place] [address]Dr. Sarah Napoles IG % 0.4 % Normal 0.0-0.5 [facility] Comment on above: Performed By: #### C BC ####[facility] Glnqsxjhzh[address] [place] [address]DrJudy Napoles LYMPH # 1.7 103/ul Normal 1.2-3.8 [facility] Comment on above: Performed By: #### C BC ####[facility] Usdasypkyw66[address] [place] [phone] Napoles Lymphocytes/100 WBC (Bld) 20.4 % Critically low 20.5-60.0 [facility] Comment on above: Performed By: #### C BC ####[facility] Qryuwthsny[address] [place] [address]DrJudy Napoles MANUAL DIFF REQ NO Normal [facility] Comment on above: Performed By: #### C BC ####[facility] Abgajiklzz[address] [place] [address]DrJudy Napoles MCH (RBC) [Entitic mass] 32.0 pg Normal 26.7-34.0 [facility] Comment on above: Performed By: #### C BC ####[facility] Aefoclrxad20[address] [place] [phone]. Sarah Napoles MCHC (RBC) [Mass/Vol] 32.4 g/dL Normal 29.9-35.2 [facility] Comment on above: Performed By: #### C BC ####[facility] [address] [place], [place] [id number] Napoles MCV (RBC) [Entitic vol] 98.8 fL Normal 81.0-99.0 [facility] Comment on above: Performed By: #### C BC ####[facility] Ewhxqjdhhs4[address] [place] [phone] Napoles MONO # 0.9 103/ul Critically high 0.3-0.8 [facility] Comment on above: Performed By: #### C BC ####[facility] Veczxxfbae7220 [place] [phone] Napoles Monocytes/100 WBC (Bld) 11.0 % Normal 1.7-12.0 [facility] Comment on above: Performed By: #### C BC ####[facility] Ecfelqgntc[address] [place] [address]Dr. Sarah Napoles NEUT # 5.3 103/ul Normal 1.4-6.5 [facility] Comment on above: Performed By: #### C BC ####[facility] O[address]npeptcw30[address] [place] [phone] Sarah Napoles Neutrophils/100 WBC (Bld) 64.8 % Normal 43.0-75.0 [facility] Comment on above: Performed By: #### C BC ####[facility] [address]elmpwe[address] [place] [address]Dr. Sarah Napoles Platelet mean volume (Bld) [Entitic vol] 10.8 fL Normal 9.5-13.5 [facility] Comment on above: Performed By: #### C BC ####[facility] Qdpzrpglpc[address] [place] [address]Dr. Sarah Napoles PLT 262 103/ul Normal 150-450 [facility] Comment on above: Performed By: #### C BC ####[facility] Ffvmuhaztn58[address] [place] [phone]. Sarah Napoles RBC 3.37 106/ul Critically low 4.20-5.40 [facility] Comment on above: Performed By: #### C BC ####[facility] Bzxkaivbaf36[address] [place] [phone]. Sarah Napoles WBC 8.1 103/ul Normal 4.0-11.0 [facility] Comment on above: Performed By: #### C BC ####[facility] Yslagmwimg74[address] [place] [phone] Sarah Napoles GLYCOHEMOGLOBIN A1Con 2021 ADA RECOMMENDATION SEE BELOW Normal [facility] Comment on above: Result Comment: ADA RECOMMENDED LIMIT 4.0 - 6.0 ADA THERAPEUTIC TARGET < 7.0 ACTION SUGGESTED > 7.0 Performed By: #### A 1C ####[facility] [address] [place], [place] [address]Dr. Sarah Napoles Glucose [Mass/Vol] 108 mg/dL Normal [facility] Comment on above: Performed By: #### A 1C ####[facility] Qwtandhzfs4[address] [place], [place] [address]XzDr. Sarah Napoles HbA1c (Bld) [Mass fraction] 5.4 % Normal 4.5-6.2 [facility] Comment on above: Performed By: #### A 1C ####[facility] Jetgmakciw[address] [place] [phone]. Sarah Napoles LIPID PROFILEon 06-16-2022 CHOL-HDL RATIO NORM SEE BELOW Normal [facility] Comment on above: Result Comment: 3.3 - 4.4 LOW RISK 4.4 - 7.1 AVERAGE RISK 7.1 - 11.0 MODERATE RISK >11.0 HIGH RISK Performed By: #### C MP, LIPID #### [facility] Laboratory [address] [address] [address] Saarh Napoles Cholesterol [Mass/Vol] 147 mg/dL Normal <=200 [facility] Comment on above: Performed By: #### C MP, LIPID #### [facility] Laboratory [address] [address] [address] Sarah Napoles Cholesterol in HDL [Mass/Vol] 58 mg/dL Normal 40-60 [facility] Comment on above: Performed By: #### C MP, LIPID #### [facility] Laboratory [address] [address] [address] Sarah Napoles Cholesterol in LDL [Mass/Vol] 68.0 mg/dL Normal [facility] Comment on above: Performed By: #### C MP, LIPID #### [facility] Laboratory [address] [address] [address] Sarah Napoles Cholesterol.total/Ch olesterol in HDL [Mass ratio] 2.5 {ratio} Normal [facility] Comment on above: Performed By: #### C MP, LIPID #### [facility] Laboratory [address] [address] [address] Sarah Napoles HDL NORMAL > or = 60 mg/dl - LO W CARDIOVASCULAR RISK <40 mg/dl - HIGH CARDIOVASCULAR RISK Normal [facility] Comment on above: Performed By: #### C MP, LIPID #### [facility] Laboratory [address] [address] [address] Sarah Napoles LDL CALC NORMAL SEE BELOW Normal [facility] Comment on above: Result Comment: <100 mg/dl OPTIMAL 100 - 129 mg/dl NEAR OR ABOVE OPTIMAL 130 - 159 mg/dl BORDERLINE HIGH 160 - 189 mg/dl HIGH >190 mg/dl VERY HIGH Performed By: #### C MP, LIPID #### [facility] Laboratory [address] [place] [address] Dr. Sarah Napoles Triglyceride [Mass/Vol] 105 mg/dL Normal <=150 [facility] Comment on above: Performed By: #### C MP, LIPID #### [facility] Laboratory [address] [place] [address] Dr. Sarah Napoles VLDL CALC 21.0 mg/dL Normal [facility] Comment on above: Performed By: #### C MP, LIPID #### [facility] Laboratory [address] [place] [address] Dr. Sarah Napoles PROF 14(COMP METB)on 022 Albumin [Mass/Vol] 4.0 g/dL Normal 3.4-5.0 [facility] Comment on above: Performed By: #### C MP, LIPID #### [facility] Laboratory [address] [place] [address] Dr. Sarah Napoles Albumin/Globulin [Mass ratio] 1.2 {ratio} Normal [facility] Comment on above: Performed By: #### C MP, LIPID #### [facility] Laboratory [address] [place] [address] Dr. Sarah Napoles ALP [Catalytic activity/Vol] 53 U/L Normal 46-116 [facility] Comment on above: Performed By: #### C MP, LIPID #### [facility] Laboratory [address] [place] [address] Dr. Sarah Napoles ALT [Catalytic activity/Vol] 32 U/L Normal 14-59 [facility] Comment on above: Performed By: #### C MP, LIPID #### [facility] Laboratory [address] [place] [address] Dr. Sarah Napoles Anion gap [Moles/Vol] 8.0 mmol/L Normal [facility] Comment on above: Performed By: #### C MP, LIPID #### [facility] Laboratory [address] [place] [address] Dr. Sarah Napoles AST [Catalytic activity/Vol] 23 U/L Normal 15-37 [facility] Comment on above: Performed By: #### C MP, LIPID #### [facility] Laboratory [address] [place] [address] Dr. Sarah Napoles Bilirubin [Mass/Vol] 0.4 mg/dL Normal 0.2-1.0 [facility] Comment on above: Performed By: #### C MP, LIPID #### [facility] Laboratory [address] [place] [address] Dr. Sarah Napoles Calcium [Mass/Vol] 9.4 mg/dL Normal 8.5-10.1 [facility] Comment on above: Performed By: #### C MP, LIPID #### [facility] Laboratory [address] [place] [address] Dr. Sarah Napoles Chloride [Moles/Vol] 100 mmol/L Normal 98-107 [facility] Comment on above: Performed By: #### C MP, LIPID #### [facility] Laboratory [address] [place] [address] Dr. Sarah Napoles CO2 [Moles/Vol] 30.8 mmol/L Normal 21.0-32.0 [facility] Comment on above: Performed By: #### C MP, LIPID #### [facility] Laboratory [address] [place] [address] Dr. Sarah Napoles Creatinine [Mass/Vol] 0.68 mg/dL Normal 0.55-1.02 [facility] Comment on above: Performed By: #### C MP, LIPID #### [facility] Laboratory [address] [place] [address] Dr. Sarah Napoles EGFR-AF INDONESIAN >60 Normal >=60 [facility] Comment on above: Performed By: #### C MP, LIPID #### [facility] Laboratory [address] [place] [address] Dr. Sarah Napoles EGFR-NON AF INDONESIAN >60 Normal >=60 [facility] Comment on above: Performed By: #### C MP, LIPID #### [facility] Laboratory [address] [place] [address] Dr. Sarah Napoles Globulin (S) [Mass/Vol] 3.3 g/dL Normal [facility] Comment on above: Performed By: #### C MP, LIPID #### [facility] Laboratory [address] [place] [address] Dr. Sarah Napoles Glucose [Mass/Vol] 90 mg/dL Normal 74-106 [facility] Comment on above: Performed By: #### C MP, LIPID #### [facility] Laboratory [address] [place] [address] Dr. Sarah Napoles Potassium [Moles/Vol] 3.8 mmol/L Normal 3.5-5.1 [facility] Comment on above: Performed By: #### C MP, LIPID #### [facility] Laboratory [address] [place] [address] Dr. Sarah Napoles Protein [Mass/Vol] 7.3 g/dL Normal 6.4-8.2 [facility] Comment on above: Performed By: #### C MP, LIPID #### [facility] Laboratory [address] [place] [address] Dr. Sarah Napoles Sodium [Moles/Vol] 135 mmol/L Critically low 136-145 [facility] Comment on above: Performed By: #### C MP, LIPID #### [facility] Laboratory [address] [place] [address] Dr. Sarah Napoles Urea nitrogen [Mass/Vol] 13.0 mg/dL Normal 7.0-18.0 [facility] Comment on above: Performed By: #### C MP, LIPID #### [facility] Laboratory [address] [place] [address] Dr. Sarah Napoles Urea nitrogen/Creatinine [Mass ratio] 19.1 mg/mg Normal [facility] Comment on above: Performed By: #### C MP, LIPID #### [facility] Laboratory [address] [place] [address] Dr. Sarah Napoles POC GLUCOSE LABon 01-03-2021 Glucose [Mass/Vol] 99 mg/dL Normal 70-100 [facility] Comment on above: Performed By: #### [id number] #### [facility] [address] [place] [address], [place] Glucose [Mass/Vol] 93 mg/dL Normal 70-100 [facility] Comment on above: Performed By: #### [id number] #### [facility] [address] [place] [address], [place] Glucose [Mass/Vol] 145 mg/dL High 70-100 [facility] Comment on above: Performed By: #### [id number] #### [facility] [address] [place] [address], [place] Glucose [Mass/Vol] 119 mg/dL High 70-100 [facility] Comment on above: Performed By: #### [id number] #### [facility] [address] [place] [address], [place] POC GLUCOSE LABon 01-02-2021 Glucose [Mass/Vol] 110 mg/dL High 70-100 [facility] [facility] Comment on above: Performed By: #### 8 [id number] #### [facility] [address] [place] [address], [place] Glucose [Mass/Vol] 127 mg/dL High 70-100 [facility] Comment on above: Performed By: #### 8 [id number] #### [facility] [address] [place] [address], [place] Glucose [Mass/Vol] 101 mg/dL High 70-100 [facility] Comment on above: Performed By: #### 8 [id number] #### [facility] [address] [place] [address], [place] BASIC METABOLIC PANELon 12-05 Calcium [Mass/Vol] 8.4 mg/dL Low 8.6-10.3 The [facility] Comment on above: Order Comment: No: D o not add to previous draw Performed By: #### 8 [id number] #### [facility] [address] [place] [address], [place] Chloride [Moles/Vol] 106 mmol/L Normal 98-107 The [facility] Comment on above: Order Comment: No: D o not add to previous draw Performed By: #### 8 [id number] #### [facility] [address] [place] [address], [place] CO2 [Moles/Vol] 29 mmol/L Normal 21-31 The [facility] Comment on above: Order Comment: No: D o not add to previous draw Performed By: #### 8 [id number] #### [facility] [address] [place] [address], [place] Creatinine [Mass/Vol] 0.50 mg/dL Low 0.60-1.20 [facility] Comment on above: Order Comment: No: D o not add to previous draw Performed By: #### 8 [id number] #### [facility] [address] [place] [address], [place] GFR/1.73 sq M.predicted among blacks MDRD (S/P/Bld) [Vol rate/Area] mL/min/{1.73_m2} Normal >60 The [facility] Comment on above: Order Comment: No: D o not add to previous draw Performed By: #### 8 [id number] #### [facility] [address] [place] [address], [place] GFR/1.73 sq M.predicted among non-blacks MDRD (S/P/Bld) [Vol rate/Area] mL/min/{1.73_m2} Normal >60 The [facility] Comment on above: Order Comment: No: D o not add to previous draw Performed By: #### 8 [id number] #### [facility] [address] [place] [address], [facility] Glucose [Mass/Vol] 88 mg/dL Normal 70-100 The [facility] Comment on above: Order Comment: No: D o not add to previous draw Performed By: #### 8 [id number] #### [facility] [address] [place] [address], [facility] Potassium [Moles/Vol] 3.3 mmol/L Low 3.5-5.1 The [facility] Comment on above: Order Comment: No: D o not add to previous draw Performed By: #### 8 [id number] #### [facility] [address] [place] [address], [facility] Sodium [Moles/Vol] 141 mmol/L Normal 136-145 The [facility] Comment on above: Order Comment: No: D o not add to previous draw Performed By: #### 8 [id number] #### [facility] [address] [place] [address], [facility] Urea nitrogen [Mass/Vol] 10 mg/dL Normal 7-25 The [facility] Comment on above: Order Comment: No: D o not add to previous draw Performed By: #### 8 [id number] #### [facility] [address] [place] [id number], [facility] CBC W/DIFFon 01-01-2021 ABS IMM GRANS 0.1 10*3/uL Normal 0.0-0.2 The [facility] Comment on above: Order Comment: No: D o not add to previous draw Performed By: #### 5 0103 #### [facility] [address] [place] [id number], [facility] ABS NEUTROPHILS 10.1 10*3/uL High 1.6-7.6 The [facility] Comment on above: Order Comment: No: D o not add to previous draw Performed By: #### 5 0103 #### [facility] [address] [place] [id number], [facility] Basophils (Bld) [#/Vol] 0.0 10*3/uL Normal 0.0-0.2 The [facility] Comment on above: Order Comment: No: D o not add to previous draw Performed By: #### 5 0103 #### [facility] [address] [place] [address], [place] Basophils/100 WBC (Bld) 0.2 % Normal 0.0-1.0 The [facility] Comment on above: Order Comment: No: D o not add to previous draw Performed By: #### 5 0103 #### [facility] [address] [place] [id number], [facility] Eosinophils (Bld) [#/Vol] 0.0 10*3/uL Normal 0.0-0.5 The [facility] Comment on above: Order Comment: No: D o not add to previous draw Performed By: #### 5 0103 #### [facility] [address] [place] [address], [facility] Eosinophils/100 WBC (Bld) 0.1 % Normal 0.0-6.0 The [facility] Comment on above: Order Comment: No: D o not add to previous draw Performed By: #### 5 3 #### [facility] [address] [place] [id number], [facility] Erythrocyte distribution width (RBC) [Ratio] 13.1 % Normal 11.5-15.0 The [facility] Comment on above: Order Comment: No: D o not add to previous draw Performed By: #### 5 0103 #### [facility] [address] [place] [id number], [facility] Hematocrit (Bld) [Volume fraction] 27.7 % Low 36.0-45.0 The [facility] Comment on above: Order Comment: No: D o not add to previous draw Performed By: #### 5 0103 #### [facility] [address] Hemoglobin (Bld) [Mass/Vol] 9.2 g/dL Low 12.0-15.0 The [facility] Comment on above: Order Comment: No: D o not add to previous draw Result Comment: RESU LTS CHECKED Performed By: #### 5 0103 #### [facility] [address] [place] [address], [facility] IMMATURE GRANS 0.4 % Normal 0.0-1.0 The [facility] Comment on above: Order Comment: No: D o not add to previous draw Performed By: #### 5 0103 #### [facility] [address] [place] [address], [facility] Lymphocytes (Bld) [#/Vol] 1.8 10*3/uL Normal 1.2-4.0 The [facility] Comment on above: Order Comment: No: D o not add to previous draw Performed By: #### 5 0103 #### [facility] [address] [place] [address], [facility] Lymphocytes/100 WBC (Bld) 13.6 % Low 20.0-45.0 The [facility] Comment on above: Order Comment: No: D o not add to previous draw Performed By: #### 5 0103 #### [facility] [address] [place] [address], [facility] MCH (RBC) [Entitic mass] 32.4 pg Normal 27.0-33.0 The [facility] Comment on above: Order Comment: No: D o not add to previous draw Performed By: #### 5 0103 #### [facility] [address] [facility]. [place] [id number], [facility] MCHC (RBC) [Mass/Vol] 33.2 g/dL Normal 32.0-35.0 The [facility] Comment on above: Order Comment: No: D o not add to previous draw Performed By: #### 5 0103 #### [facility] [address] [facility] [place] [address], [facility] MCV (RBC) [Entitic vol] 97.5 fL Normal 82.0-98.0 The [facility] Comment on above: Order Comment: No: D o not add to previous draw Performed By: #### 5 0103 #### [facility] [address] [place] [address], [facility] Monocytes (Bld) [#/Vol] 1.4 10*3/uL High 0.1-1.0 The [facility] Comment on above: Order Comment: No: D o not add to previous draw Performed By: #### 5 0103 #### [facility] [address] [facility] [place] [address], [facility] MONOS 10.1 % Normal 5.0-12.0 The [facility] Comment on above: Order Comment: No: D o not add to previous draw Performed By: #### 5 0103 #### [facility] [address] [facility] [place] [place] [address], [facility] Neutrophils/100 WBC (Bld) 75.6 % High 40.0-72.0 The [facility] Comment on above: Order Comment: No: D o not add to previous draw Performed By: #### 5 0103 #### [facility] [address] [facility] [place] [address], [facility] Nucleated RBC/100 WBC (Bld) [Ratio] 0 % Normal 0-0 The [facility] Comment on above: Order Comment: No: D o not add to previous draw Performed By: #### 5 0103 #### [facility] [address] [address], [facility] PLAT CNT 237 10*3/uL Normal 150-400 The [facility] Comment on above: Order Comment: No: D o not add to previous draw Performed By: #### 5 0103 #### [facility] [address] [place] [id number], [facility] RBC (Bld) [#/Vol] 2.84 10*6/uL Low 3.80-5.00 The [facility] Comment on above: Order Comment: No: D o not add to previous draw Performed By: #### 5 0103 #### [facility] [address] [place] [address], [facility] WBC (Bld) [#/Vol] 13.43 10*3/uL High 4.00-10.60 The [facility] Comment on above: Order Comment: No: D o not add to previous draw Performed By: #### 5 0103 #### [facility] [address] [facility] [place] [address], [facility] POC GLUCOSE LABon 01-01-2021 Glucose [Mass/Vol] 102 mg/dL High 70-100 The [facility] Comment on above: Performed By: #### 8 [id number] #### [facility] [address] [facility] [place] [address], [place] Glucose [Mass/Vol] 111 mg/dL High 70-100 The [facility] Comment on above: Performed By: #### 8 [id number] #### [facility] [address] [facility] [place] [address], [facility] Glucose [Mass/Vol] 110 mg/dL High 70-100 The [facility] Comment on above: Performed By: #### 8 [id number] #### [facility] [address] [facility] [place] [address], [place] Glucose [Mass/Vol] 115 mg/dL High 70-100 The [facility] Comment on above: Performed By: #### 8 [id number] #### [facility] [address] [facility] [place] [address], [facility] HIP RIGHT 1 OR 2 VWS WITH PE LVISon 12-31-2020 HIP RIGHT 1 OR 2 VWS WITH PELVIS [facility] Department of Radiology [address] [place] [phone] Patient Name: BLANCA ENRIQUEZ : 1960 Sex: F Age: Race: White Pt. Location: OUTP Patient Status: I Ordered Date: 12/31/2020 9:45:00 AM Completed Date: 12/31/2020 10:43 AM Requesting Provider: HERMINIO ROBERTS Attending Provider: HERMINIO [...] reports Electronically signed: Panda Smith. Transcribed by: [email or web address], User Resident: SCHUYLER RODRIGUES Electronically Signed by: PANDA SMITH @ 12/31/2020 04:29 PM I personally read this/these film(s) with this resident Normal The [facility] Comment on above: Order Comment: RIGHT ANTERIOR TOTAL HIP REPLACEMENT Operative Reporton Operative Report MR#: [id number] I [facility] Pt. Name: Blanca Enriquez Room #: [id number] Discharge Date: Birthdate: 1960 OPERATIVE REPORT DATE [...] right hip pain despite nonoperative measures. Has [id number] osteoarthritis of the right hip with subchondral [...] P Herminio Roberts M.D. Date Dict: 12/31/2020/10:44 Reagan/Herminio Roberts M.D. Date Trans: 12/31/2020 09:28 P/jaredo [id number] Normal The [facility] POC GLUCOSE LABon 12-31-2020 Glucose [Mass/Vol] 104 mg/dL High 70-100 [facility] Comment on above: Performed By: #### 8 [id number] #### [place] [address] [address] Glucose [Mass/Vol] 168 mg/dL High 70-100 The [facility] Comment on above: Performed By: #### 8 [id number] #### [facility] [address] [facility] [place] [place] [address], [facility] Glucose [Mass/Vol] 162 mg/dL High 70-100 The [facility] Comment on above: Performed By: #### 8 [id number] #### [facility] [address] [facility] [place] [address], [facility] Glucose [Mass/Vol] 167 mg/dL High 70-100 The [facility] Comment on above: Performed By: #### 8 [id number] #### [facility] [address] [place] [address], [facility] PORTABLE HIP RIGHT 1 OR 2 VW S WITH PELVISon 12-31-2020 PORTABLE HIP RIGHT 1 OR 2 VWS WITH PELVIS [facility] Department of Radiology [address] [place] [address] [phone] Patient Name: BLANCA ENRIQUEZ : 1960 Sex: [...] fracture Electronically signed: Panda Smith. Transcribed by: [email or web address], User Resident: Electronically Signed by: PANDA SMITH @ 12/31/2020 01:05 PM Normal The [facility] Comment on above: Order Comment: Hardw are Evaluation, PACU *MRSA/MSSA DNA NASALon 12-10 *MRSA/MSSA DNA NASAL Clinical Report: (D ) Specimen: NASAL SWAB Collected: 12/10/2020 13:55 Status: Final Last Updated: 12/11/2020 15:48 MSSA DNA (Final) Negative MRSA DNA (Final) Negative Normal The [facility] Comment on above: Performed By: #### 8 [id number] #### [facility] [address] CBC W/DIFFon 12-10-2020 ABS IMM GRANS 0.0 10*3/uL Normal 0.0-0.2 The [facility] Comment on above: Performed By: #### 8 [id number] #### [facility] [address] [place] [address], [facility] ABS NEUTROPHILS 7.7 10*3/uL High 1.6-7.[address] [facility] Comment on above: Performed By: #### 8 [id number] #### [facility] [address] [place] [address], [facility] Basophils (Bld) [#/Vol] 0.1 10*3/uL Normal 0.0-0.2 The [facility] Comment on above: Performed By: #### 8 [id number] #### [facility] [address] [place] [address], [facility] Basophils/100 WBC (Bld) 0.6 % Normal 0.0-1.0 The [facility] Comment on above: Performed By: #### 8 [id number] #### [facility] [address] [place] [address], [facility] Eosinophils (Bld) [#/Vol] 0.1 10*3/uL Normal 0.0-0.5 The [facility] Comment on above: Performed By: #### 8 [id number] #### [facility] [address] [facility] [place] [place] [address], [facility] Eosinophils/100 WBC (Bld) 1.0 % Normal 0.0-6.0 The [facility] Comment on above: Performed By: #### 8 [id number] #### [facility] [address] [facility]. [address] Erythrocyte distribution width (RBC) [Ratio] 13.0 % Normal 11.5-15.0 The [facility] Comment on above: Performed By: #### 8 [id number] #### [facility] [address] [facility] [place] [place] [address], [facility] Hematocrit (Bld) [Volume fraction] 36.2 % Normal 36.0-45.0 The [facility] Comment on above: Performed By: #### 8 [id number] #### [facility] [address] [place] [address], [facility] Hemoglobin (Bld) [Mass/Vol] 11.9 g/dL Low 12.0-15.0 The [facility] Comment on above: Performed By: #### 8 [id number] #### [facility] [address] [place] [address], [facility] IMMATURE GRANS 0.3 % Normal 0.0-1.0 The [facility] Comment on above: Performed By: #### 8 [id number] #### [facility] [address] [address], [facility] Lymphocytes (Bld) [#/Vol] 1.5 10*3/uL Normal 1.2-4.0 The [facility] Comment on above: Performed By: #### 8 [id number] #### [facility] [address] [facility] [place] [address], [facility] Lymphocytes/100 WBC (Bld) 15.1 % Low 20.0-45.0 The [facility] Comment on above: Performed By: #### 8 [id number] #### [facility] [address] [facility]. [address] MCH (RBC) [Entitic mass] 31.9 pg Normal 27.0-33.0 The [facility] Comment on above: Performed By: #### 8 [id number] #### [facility] [address] [facility]. [address] MCHC (RBC) [Mass/Vol] 32.9 g/dL Normal 32.0-35.0 The [facility] Comment on above: Performed By: #### 8 [id number] #### [facility] [address] [facility] [place] [place] [address], [facility] MCV (RBC) [Entitic vol] 97.1 fL Normal 82.0-98.0 The [facility] Comment on above: Performed By: #### 8 [id number] #### [facility] [address] [facility] [place] [address], [facility] Monocytes (Bld) [#/Vol] 0.7 10*3/uL Normal 0.1-1.0 The [facility] Comment on above: Performed By: #### 8 [id number] #### [facility] [address] [place] [address], [facility] MONOS 7.3 % Normal 5.0-12.0 The [facility] Comment on above: Performed By: #### 8 [id number] #### [facility] [address] [place] [address], [facility] Neutrophils/100 WBC (Bld) 75.7 % High 40.0-72.0 The [facility] Comment on above: Performed By: #### 8 [id number] #### [facility] [address] [place] [address], [facility] Nucleated RBC/100 WBC (Bld) [Ratio] 0 % Normal 0-0 The [facility] Comment on above: Performed By: #### 8 [id number] #### [facility] [address] [place] [address], [facility] PLAT CNT 290 10*3/uL Normal 150-400 The [facility] Comment on above: Performed By: #### 8 [id number] #### [facility] [address] [facility] [place] [place] [address], [facility] RBC (Bld) [#/Vol] 3.73 10*6/uL Low 3.80-5.00 The [facility] Comment on above: Performed By: #### 8 [id number] #### [facility] [address] [facility] [place] [place] [address], [facility] WBC (Bld) [#/Vol] 10.11 10*3/uL Normal 4.00-10.60 The [facility] Comment on above: Performed By: #### 8 [id number] #### [facility] [address] [place] [address], [facility] HEMOGLOBIN A1Con 12-10-2020 Glucose [Moles/Vol] 108 mmol/L Normal The [facility] Comment on above: Performed By: #### 3 [id number] #### [facility] [address] [place] [id number], [facility] HbA1c (Bld) [Mass fraction] 5.4 % Normal 4.0-6.0 The [facility] Comment on above: Performed By: #### 3 179 #### [address] [place] [address], [facility] HIP RIGHT 1 OR 2 VWS WITH PE LVISon 11-22-2020 HIP RIGHT 1 OR 2 VWS WITH PELVIS [facility] Department of Radiology [address] [place] [phone] Patient Name: BLANCA ENRIQUEZ : 1960 [...] exam. Electronically signed: Rodney Sutherland. Transcribed by: [email or web address], User Resident: Electronically Signed by: RODNEY SUTHERLAND @ 11/22/2020 03:43 PM Normal The [facility] Comment on above: Order Comment: Evalu ate Social History Date Type Detail Facility Start: 09-08-2023 Tobacco smoking status NHIS Ex-smoke r [facility] Start: 09-08-2023 Cigarettes smoked cu rrent (pack per day) - Reported 1 [facility] Start: 09-08-2023 Tobacco use and exposure Smoke less tobacco non-user [facility] Start: 09-08-2023 Alcohol intake Ex-drinker (finding) [facility] Start: 09-08-2023 Humiliation, Afraid, Rape, and Kick questionnaire [HARK] [facility] Start: 09-08-2023 Alcohol Comment quit 10 years ago [facility] Start: 08-20-2023 Tobacco Comment Last smoked 1-5 year s [facility] Start: 1960 Sex Assigned At Not on file [facility] End: 12-03-2020 History of tobacco use Current smoker [facility] End: 12-03-2020 History of tobacco use Cigarette Smoker [facility] Within the last year , have you been afraid of your partner or ex-partner? No [facility] In a typical week, h ow many times do you talk on the telephone with family, friends, or neighbors? Patient refused [facility] Do you belong to any clubs or organizations such as oriental orthodox groups, unions, fraternal or athletic groups, or school groups? Yes [facility] Are you now , , , , never or living with a partner? [facility] How often to you hav e a drink containing alcohol? Never [facility] How hard is it for y ou to pay for the very basics like food, housing, medical care, and heating Not very hard [facility] Do you feel stress - tense, restless, nervous, or anxious, or unable to sleep at night because your mind is troubled all the time - these days [OSQ] Not at all [facility] (I/We) worried whethelma er (my/our) food would run out before (I/we) got money to buy more. Never true [facility] Clinical Note 12-17-2022 Note Date & Type [...] by: JOVANNI MILLAN Date: 2022-12-17 16:26 The [facility] Evaluation note Note Date & Type Note Facility Evaluation note Diagnosis Chronic left shoulder pain Pain in joint, shoulder region Chronic pain of left knee documented in this encounter [facility] Healthcare Summary Purpose Family History No Family History Records FoundNo Family History Records FoundNo Family History Records FoundNo Family History Records Found Advance Directives No Advanced Directives Records FoundNo Advanced Directives Records FoundNo Advanced Directives Records FoundNo Advanced Directives Records Found Additional Source Comments INFORMATION SOURCE (unrecogn ized section and content) DATE CREATED AUTHOR 02/27/2021 [facility] DATE CREATED AUTHOR AUTHOR'S ORGANIZ ATION 03/13/2023 [facility] DATE CREATED AUTHOR AUTHOR'S ORGANIZ ATION 12/11/2023 [facility] DATE CREATED AUTHOR AUTHOR'S ORGANIZ ATION 03/16/2024 [facility] EPIC Care Teams (unrecognized sec tion and content) [employer] Supervisor Relationship Specialty Start Date End Date Shaikh Chambers MD PCP - General Internal Medicine 05/04/23 FOR RECORDS PERTAINING TO PATIENTS WHO ARE [...] BE BASED ON THE PRIMARY CLINICAL RECORDS. [facility] [employer] [facility]. provides no warranty or guarantee of the accuracy or completeness of information in this document.
[2024-03-16 13:32] LABS: Basophils Absolute Auto 0.1 10^3/uL (0.0-0.1); Basophils Percent Auto 0.5 % (0.2-2.0); Eosinophils Absolute Auto 0.2 10^3/uL (0.0-0.7); Eosinophils Percent Auto 1.6 % (0.9-7.0); Hematocrit 38.7 % (36.0-48.0); Hemoglobin 12.4 g/dL (12.0-16.0); Immature Granulocytes Abs Auto 0.03 10^3/uL (0.00-0.03); Immature Granulocytes Pct Auto 0.3 % (0.0-0.5); Lymphocytes Absolute Auto 1.5 10^3/uL (1.2-3.8); Lymphocytes Percent Auto 16.2 % (20.5-60.0); Mean Corpuscular Hemoglobin 31.1 pg (26.7-34.0); Monocytes Absolute Auto 0.5 10^3/uL (0.3-0.8); Monocytes Percent Auto 5.4 % (1.7-12.0); Neutrophils Absolute Auto 7.1 10^3/uL (1.4-6.5); Platelet Count 319 10^3/uL (150-450); Red Blood Count 3.99 10^6/uL (4.20-5.40); Red Cell Distribution Width 13.5 % (11.0-15.0); White Blood Count 9.4 10^3/uL (4.0-11.0)
[2024-03-16 14:29] LABS: Alanine Aminotransferase 31 U/L (14-59); Albumin Level 4.2 g/dL (3.4-5.0); Alkaline Phosphatase 71 U/L (46-116); Anion Gap 12.4; Aspartate Amino Transferase 21 U/L (15-37); BUN Creatinine Ratio 19.1; Bilirubin Total 0.6 mg/dL (0.2-1.0); Carbon Dioxide 33.1 mmol/L (21.0-32.0); Chloride 101 mmol/L (98-107); Chol HDL Ratio 2.5; Cholesterol 181 mg/dL (<=200); Estimated GFR (African America >60 (>=60); Estimated GFR (Non-African Ame >60 (>=60); Globulin 4.2 g/dL; Glucose 115 mg/dL (74-106); HDL Cholesterol 72 mg/dL (40-60); Potassium 3.5 mmol/L (3.5-5.1); Sodium 143 mmol/L (136-145); Total Protein 8.4 g/dL (6.4-8.2); Triglycerides 57 mg/dL (<=150); VLDL CHOLESTEROL 11.4 mg/dL
== END 2024-03-16 12:07 | disposition home or self-care (01) ==
LOC: LAB 12:08
PROVIDERS: PCP Internal Medicine; Visit Provider Internal Medicine
DX: E78.2 Mixed hyperlipidemia (principal); I10 Essential (primary) hypertension
CPT/HCPCS: 36415; 80053; 80061; 85025

== ENCOUNTER 2024-03-25 12:50 | Outpatient (OUT) | payer MEDICARE, SELFPAY ==
--- NOTE | 2024-03-25 | CT_ITS ---
The [address] [address] Patient Name: BLANCA BUTLER MRN: [id number] date: 1960 Sex: F Assigned Patient Location: CT Current Patient Location: Accession/Order Number: [id number] Exam Date: 03/25/2024 13:00 Report Date: 03/28/2024 08:14 At the request of: KEVAN BRAUN Procedure: CT shoulder LT wo con EXAMINATION: CT shoulder LT wo con HISTORY: Rotator cuff arthropathy of left shoulder M12.812 COMPARISON: No relevant comparison available. TECHNIQUE: Multi-planar CT images were created without IV contrast. Dose reduction techniques were achieved by using automated exposure control and/or adjustment of mA and/or kV according to patient size and/or use of iterative reconstruction technique. FINDINGS: BONES: No acute fracture or dislocation. Severe degenerative changes of the glenohumeral joint with marked bony remodeling of the glenoid and humeral head. High riding humeral head with remodeling of the acromial process. Mild acromioclavicular joint osteoarthropathy with no significant subacromial spurring. Irregular humeral head contour with subchondral cystic changes SOFT TISSUES: Marked diffuse rotator cuff atrophy with fatty replacement of the supraspinatus and infraspinatus muscles. Minimal calcific density noted along the greater tuberosity likely representing calcific tendinitis of the teres minor tendon EFFUSION: None visible. OTHER: Negative. CT/CT shoulder LT wo con IMPRESSION: Chronic rotator cuff rupture with marked rotator cuff muscular atrophy and severe glenohumeral joint osteoarthritis Electronically authenticated by: MARIA ANTONIA CONRAD Date: 03/28/2024 08:14
--- OUTSIDE RECORDS SUMMARY | 2024-03-25 12:53 | XMS_ITS | CCD ---
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 Name Role Phone UNKNOWN, PHYSICIAN Primary Care Unavailable UNKNOWN, PHYSICIAN Referring Unavailable HERMINIO ROBERTS Admitting Unavailable HERMINIO ROBERTS Attending Unavailable HERMINIO ROBERTS Surgeon Unavailable SD Procedure Practitioner Unavailab PATRICIA GarciaIKH H Consulting [...] WEST, DR MARIA ANTONIA Toro Admitting Unavailable ANAMARIA, DR MARIA ANTONIA Toro Consulting Unavailable SHAIKH Gerson CHAMBERS Attending Unavailable SHAIKH Gerson CHAMBERS Admitting Unavailable DR JOVANNI MILLAN Consulting Unavailable SHAIKH Gerson CHAMBERS Primary Care Unavailable SHAIKH Gerson CHAMBERS Consulting Unavailable Shaikh Chambers MD Primary Care Provider [phone] Lalo PALACIO, Chikis Henderson Attending Unavailable Lalo PALACIO, Chikis Henderson Attending Unavailable Lalo PALACIO, Chikis Henderson Attending Unavailable SHAIKH CHAMBERS Attending Unavailable SHAIKH CHAMBERS Attending Unavailable SHAIKH CHAMBERS Attending Unavailable Allergies Allergy Classification Reported Allergen(s) Allergy Type Date of Onset Reaction(s) Facility Aspirin (1 source) Aspirin; Translations: [ASPIRIN] Drug Allergy 12-26-2020 [facility] Repository (1 source) Amino Acids Drug Allergy [facility] Repository (1 source) Aspirin Drug Allergy [facility] Repository (1 source) Aluminum aspirin Drug Allergy 04-30-2023 Rash [facility] Health care Medications Current Medications Medication Drug Class(es) Dates Sig (Normalized) Sig (Original) alendronic acid 35 mg oral tablet (2 sources) Bisphosphonate take 1 tablet by latha once daily alendronate (Fosamax) 35 MG tablet 1 tablet 30 minutes before the first food, beverage or medicine of the day with plain water Orally 0 Active take 1 tablet by mouth every we k alendronate (Fosamax) 70 MG tablet 1 [...] 1000 mg oral capsule (1 source) Evening [place] [employer] 1000 MG capsule as directed Orally [...] day at the same time. 0 Active Problems Active Problems Problem Classification Problem Date [...] DR MARIA ANTONIA CONRAD M.D. Admission #: [id number] Family : Order #: [id number] CLICK HERE TO VIEW EXAM RADIOLOGY REPORT [...] Conrad MD on 03/03/2023 at 13:46 Normal [facility] VC EXT VENOUS RT LIMITEDon 0 03-03-2023 VC EXT VENOUS RT LIMITED Patient: BLANCA ENRIQUEZ Exam Date: 03/03/2023 : 1960 Gender:F Ordering : DR MARIA ANTONIA CONRAD M.D. Admission #: [id number] Family : Order #: [id number] CLICK HERE TO VIEW EXAM RADIOLOGY REPORT [...] Conrad MD on 03/03/2023 at 13:10 Normal [facility] VC ENDOVENOUS ABL 1ST V RTon 02-25-2023 VC ENDOVENOUS ABL 1ST V RT Patient: BLANCA ENRIQUEZ Exam Date: 02/25/2023 : 1960 Gender:F Ordering : DR MARIA ANTONIA CONRAD M.D. Admission #: [id number] Family : Order #: [id number] CLICK HERE TO VIEW EXAM RADIOLOGY REPORT [...] Millan M.D. on 02/25/2023 at 15:01 Normal [facility] VC CONSULT FOLLOWUPon 2022 VC CONSULT FOLLOWUP Patient: BLANCA ENRIQUEZ Exam Date: 02/09/2023 : 1960 Gender:F Ordering : DR MARIA ANTONIA CONRAD M.D. Admission #: [id number] Family : Order #: [id number] CLICK HERE TO VIEW EXAM RADIOLOGY REPORT [...] Millan M.D. on 02/09/2023 at 11:43 Normal [facility] VC EXT VENOUS LT LIMITEDon 0 02-09-2023 VC EXT VENOUS LT LIMITED Patient: BLANCA ENRIQUEZ Exam Date: 02/09/2023 : 1960 Gender:F Ordering : DR MARIA ANTONIA CONRAD M.D. Admission #: [id number] Family : Order #: [id number] CLICK HERE TO VIEW EXAM RADIOLOGY REPORT [...] Jovanni Millan M.D. on 02/09/2023 at 11:35 [facility] VC ENDOVENOUS ABL 1ST V LTon 02-02-2023 VC ENDOVENOUS ABL 1ST V LT Patient: BLANCA ENRIQUEZ Exam Date: 02/02/2023 : 1960 Gender:F Ordering : DR MARIA ANTONIA CONRAD M.D. Admission #: [id number] Family : Order #: [id number] CLICK HERE TO VIEW EXAM RADIOLOGY REPORT [...] Millan M.D. on 02/02/2023 at 14:17 Normal [facility] VC COMP CONSULTATIONon 01-08 VC COMP CONSULTATION Patient: BLANCA ENRIQUEZ Exam Date: 01/08/2023 : 1960 Gender:F Ordering : DR MARIA ANTONIA CONRAD M.D. Admission #: [id number] Family : Order #: [id number] CLICK HERE TO VIEW EXAM RADIOLOGY REPORT [...] saphenous, mild to moderate right small saphenous zczc-ok-fxasacii left anterior accessory saphenous vein venous insufficiency [...] Conrad MD on 01/08/2023 at 15:14 Normal [facility] VC VENOUS REFLUX SARITHA LMTon 0 01-08-2023 VC VENOUS REFLUX SARITHA LMT Patient: BLANCA ENRIQUEZ Exam Date: 01/08/2023 : 1960 Gender:F Ordering : DR MARIA ANTONIA CONRAD M.D. Admission #: [id number] Family : Order #: [id number] CLICK HERE TO VIEW EXAM RADIOLOGY REPORT [...] chronic thrombus visualized Compressibility: Normal Flow: Normal Cloth Designer: Dist/med calf 3.7 mm with 2.4s reflux. [...] Bilateral incompetent varicose veins 5. Left incompetent maintenance leader veins 6. Left suprapatellar fluid collection likely joint effusion and popliteal lesion likely a cyst Dictated by: Maria Antonia Conrad MD on 01/08/2023 at 13:50 Approved by: Maria Antonia Conrad MD on 01/08/2023 at 13:52 Normal [facility] XR KNEE SARITHA 4V or >on [...] by: JOVANNI MILLAN Date: 2022-12-17 16:24 Normal [facility] XR SHOULDER SARITHA 2V or >on [...] narrowing of the glenohumeral joints with likely ahsc-yf-acbf contact. Degenerative osteophyte along the inferior articular [...] by: JOVANNI MILLAN Date: 2022-12-17 16:32 Normal [facility] CBC AUTO DIFFon 12-15-2022 BASO # 0.1 103/ul Normal 0.0-0.1 [facility] Comment on above: Performed By: #### C BC ####[facility] [address] [place], [place] [address]JwJudy Smith Napoles Basophils/100 WBC (Bld) 0.8 % Normal 0.2-2.0 [facility] Comment on above: Performed By: #### C BC ####[facility] [address] [place] [address]Dr. Sarah Napoles EO # 0.2 103/ul Normal 0.0-0.7 [facility] Comment on above: Performed By: #### C BC ####[facility] [address] [place] [address]Dr. Sarah Napoles Eosinophils/100 WBC (Bld) 2.3 % Normal 0.9-7.0 [facility] Comment on above: Performed By: #### C BC ####[facility] [address] [place], [place] [address]Dr. Sarah Napoles Erythrocyte distribution width (RBC) [Ratio] 13.2 % Normal 11.0-15.0 [facility] Comment on above: Performed By: #### C BC ####[facility] I[address] [place], [place] [address]Dr. Sarah Napoles Hematocrit (Bld) [Volume fraction] 34.3 % Critically low 36.0-48.0 [facility] Comment on above: Performed By: #### C BC ####[facility] Mr[address] [place], [place] [address]Dr. Sarah Napoles Hemoglobin (Bld) [Mass/Vol] 11.5 g/dL Critically low 12.0-16.0 [facility] Comment on above: Performed By: #### C BC ####[facility] Y[address] [place], [place] [address]Dr. Sarah Napoles IG # 0.02 10e3/ul Normal 0.00-0.03 [facility] Comment on above: Performed By: #### C BC ####[facility] [address] [place], [place] [address]Dr. Sarah Napoles IG % 0.2 % Normal 0.0-0.5 [facility] Comment on above: Performed By: #### C BC ####[facility] [address] [place], [place] [address]Dr. Charlinecassie Napoles LYMPH # 1.8 103/ul Normal 1.2-3.8 [facility] Comment on above: Performed By: #### C BC ####[facility] [address] [place] [address]Dr. Charlinecassie Napoles Lymphocytes/100 WBC (Bld) 19.8 % Critically low 20.5-60.0 [facility] Comment on above: Performed By: #### C BC ####[facility] [address] [place] [address]Dr. Sarah Napoles MANUAL DIFF REQ NO Normal [facility] Comment on above: Performed By: #### C BC ####[facility] [address] [place] [address]Dr. Sarah Napoles MCH (RBC) [Entitic mass] 32.2 pg Normal 26.7-34.0 [facility] Comment on above: Performed By: #### C BC ####[facility] [address] [place] [address]Dr. Sarah Napoles MCHC (RBC) [Mass/Vol] 33.5 g/dL Normal 29.9-35.2 [facility] Comment on above: Performed By: #### C BC ####[facility] [address] [place] [address]Dr. Sarah Napoles MCV (RBC) [Entitic vol] 96.1 fL Normal 81.0-99.0 [facility] Comment on above: Performed By: #### C BC ####[facility] [address] [place] [address]Dr. Sarah Napoles MONO # 0.8 103/ul Normal 0.3-0.8 [facility] Comment on above: Performed By: #### C BC ####[facility] [address] [place] [address]Dr. Sarah Napoles Monocytes/100 WBC (Bld) 9.5 % Normal 1.7-12.0 [facility] Comment on above: Performed By: #### C BC ####[facility] [address] [place], [place] [address]Dr. Sarah Napoles NEUT # 6.0 103/ul Normal 1.4-6.5 [facility] Comment on above: Performed By: #### C BC ####[facility] [address] [place] [address]Dr. Sarah Napoles Neutrophils/100 WBC (Bld) 67.4 % Normal 43.0-75.0 [facility] Comment on above: Performed By: #### C BC ####[facility] [address] [place] [address]Dr. Sarah Napoles Platelet mean volume (Bld) [Entitic vol] 10.1 fL Normal 9.5-13.5 [facility] Comment on above: Performed By: #### C BC ####[facility] [address] [place] [address]Dr. Sarah Napoles PLT 283 103/ul Normal 150-450 [facility] Comment on above: Performed By: #### C BC ####[facility] [address] [place] [address]Dr. Sarah Napoles RBC 3.57 106/ul Critically low 4.20-5.40 [facility] Comment on above: Performed By: #### C BC ####[facility] [address] [place] [address]Dr. Sarah Napoles WBC 8.8 103/ul Normal 4.0-11.0 [facility] Comment on above: Performed By: #### C BC ####[facility] [address] [place] [address]Dr. Sarah Napoles GLYCOHEMOGLOBIN A1Con 2022 ADA RECOMMENDATION SEE BELOW Normal [facility] Comment on above: Result Comment: ADA RECOMMENDED LIMIT 4.0 - 6.0 ADA THERAPEUTIC TARGET < 7.0 ACTION SUGGESTED > 7.0 Performed By: #### A 1C ####[facility] [address] [place] [address]Dr. Sarah Napoles Glucose [Mass/Vol] 105 mg/dL Normal [facility] Comment on above: Performed By: #### A 1C ####[facility] [address] [place] [address]Dr. Sarah Napoles HbA1c (Bld) [Mass fraction] 5.3 % Normal 4.5-6.2 [facility] Comment on above: Performed By: #### A 1C ####[facility] [address] [place] [address]Dr. Charlinecassie Dony LIPID PROFILEon 12-15-2022 CHOL-HDL RATIO NORM SEE BELOW Normal [facility] Comment on above: Result Comment: 3.3 - 4.4 LOW RISK 4.4 - 7.1 AVERAGE RISK 7.1 - 11.0 MODERATE RISK >11.0 HIGH RISK Performed By: #### L IPID, CMP, URIC ####[facility] [address] [place], [place] [address]Ey. Sarah Napoles Cholesterol [Mass/Vol] 160 mg/dL Normal <=200 [facility] Comment on above: Performed By: #### L IPID, CMP, URIC ####[facility] [address] [place] [address]Dr. Sarah Napoles Cholesterol in HDL [Mass/Vol] 62 mg/dL Critically high 40-60 [facility] Comment on above: Performed By: #### L IPID, CMP, URIC ####[facility] [address] [place] [address]Dr. Sarah Napoles Cholesterol in LDL [Mass/Vol] 75.2 mg/dL Normal [facility] Comment on above: Performed By: #### L IPID, CMP, URIC ####[facility] [address] [place], [place] [address]Hv. Sarah Napoles Cholesterol.total/Ch olesterol in HDL [Mass ratio] 2.6 {ratio} Normal [facility] Comment on above: Performed By: #### L IPID, CMP, URIC ####[facility] [address] [place], [place] [address]Pd. Sarah Napoles HDL NORMAL > or = 60 mg/dl - LO W CARDIOVASCULAR RISK <40 mg/dl - HIGH CARDIOVASCULAR RISK Normal [facility] Comment on above: Performed By: #### L IPID, CMP, URIC ####[facility] [address] [place] [address]Dr. Sarah Napoles LDL CALC NORMAL SEE BELOW Normal [facility] Comment on above: Result Comment: <100 mg/dl OPTIMAL 100 - 129 mg/dl NEAR OR ABOVE OPTIMAL 130 - 159 mg/dl BORDERLINE HIGH 160 - 189 mg/dl HIGH >190 mg/dl VERY HIGH Performed By: #### L IPID, CMP, URIC ####[facility] [address] [place], [place] [address]GfDr. Sarah Napoles Triglyceride [Mass/Vol] 114 mg/dL Normal <=150 [facility] Comment on above: Performed By: #### L IPID, CMP, URIC ####[facility] [address] [place], [place] [address]UvDr. Sarah Napoles VLDL CALC 22.8 mg/dL Normal [facility] Comment on above: Performed By: #### L IPID, CMP, URIC ####[facility] [address] [place], [place] [address]EsDr. Sarah Napoles PROF 14(COMP METB)on 023 Albumin [Mass/Vol] 4.3 g/dL Normal 3.4-5.0 [facility] Comment on above: Performed By: #### L IPID, CMP, URIC #### [facility] [address] [place] [address] [address] Sarah Napoles Albumin/Globulin [Mass ratio] 1.3 {ratio} Normal [facility] Comment on above: Performed By: #### L IPID, CMP, URIC #### [facility] [address] [place] [address] [address] Sarah Napoles ALP [Catalytic activity/Vol] 71 U/L Normal 46-116 [facility] Comment on above: Performed By: #### L IPID, CMP, URIC #### [facility] [address] [place] [address] [address] Sarah Napoles ALT [Catalytic activity/Vol] 25 U/L Normal 14-59 [facility] Comment on above: Performed By: #### L IPID, CMP, URIC #### [facility] [address] [place] [address] [address] Sarah Napoles Anion gap [Moles/Vol] 11.8 mmol/L Normal [facility] Comment on above: Performed By: #### L IPID, CMP, URIC #### [facility] [address] [place] [address] [address] Sarah Napoles AST [Catalytic activity/Vol] 22 U/L Normal 15-37 [facility] Comment on above: Performed By: #### L IPID, CMP, URIC #### [facility] [address] [place] [address] [address] Sarah Napoles Bilirubin [Mass/Vol] 0.3 mg/dL Normal 0.2-1.0 [facility] Comment on above: Performed By: #### L IPID, CMP, URIC #### [facility] [address] [place] [address] Dr. Sarah Napoles Calcium [Mass/Vol] 9.8 mg/dL Normal 8.5-10.1 [facility] Comment on above: Performed By: #### L IPID, CMP, URIC #### [facility] [address] [place] [address] Dr. Sarah Napoles Chloride [Moles/Vol] 101 mmol/L Normal 98-107 [facility] Comment on above: Performed By: #### L IPID, CMP, URIC #### [facility] [address] [place] [address] Dr. Sarah Napoles CO2 [Moles/Vol] 29.5 mmol/L Normal 21.0-32.0 [facility] Comment on above: Performed By: #### L IPID, CMP, URIC #### [facility] [address] [place] [address] Dr. Sarah Napoles Creatinine [Mass/Vol] 0.63 mg/dL Normal 0.55-1.02 [facility] Comment on above: Performed By: #### L IPID, CMP, URIC #### [facility] [address] [place] [address] Dr. Sarah Napoles EGFR-AF MACEDONIAN >60 Normal >=60 [facility] Comment on above: Performed By: #### L IPID, CMP, URIC #### [facility] [address] [place] [address] Dr. Sarah Napoles EGFR-NON AF MACEDONIAN >60 Normal >=60 [facility] Comment on above: Performed By: #### L IPID, CMP, URIC #### [facility] [address] [place] [address] [address] Sarah Napoles Globulin (S) [Mass/Vol] 3.4 g/dL Normal [facility] Comment on above: Performed By: #### L IPID, CMP, URIC #### [facility] [address] [place] [address] [address] Sarah Napoles Glucose [Mass/Vol] 92 mg/dL Normal 74-106 [facility] Comment on above: Performed By: #### L IPID, CMP, URIC #### [facility] [address] [place] [address] [address] Sarah Napoles Potassium [Moles/Vol] 4.3 mmol/L Normal 3.5-5.1 [facility] Comment on above: Performed By: #### L IPID, CMP, URIC #### [facility] [address] [place] [address] Dr. Sarah Napoles Protein [Mass/Vol] 7.7 g/dL Normal 6.4-8.2 [facility] Comment on above: Performed By: #### L IPID, CMP, URIC #### [facility] [address] [place] [address] Dr. Sarah Napoles Sodium [Moles/Vol] 138 mmol/L Normal 136-145 [facility] Comment on above: Performed By: #### L IPID, CMP, URIC #### [facility] [address] [place] [address] Dr. Sarah Napoles Urea nitrogen [Mass/Vol] 25.0 mg/dL Critically high 7.0-18.0 [facility] Comment on above: Performed By: #### L IPID, CMP, URIC #### [facility] [address] [place] [address] Dr. Sarah Napoles Urea nitrogen/Creatinine [Mass ratio] 39.7 mg/mg Normal [facility] Comment on above: Performed By: #### L IPID, CMP, URIC #### [facility] [address] [place], [place] [address] Dr. Sarah Napoles URIC ACID SERUMon 12-15-2022 Urate [Mass/Vol] 3.7 mg/dL Normal 2.6-6.[address] [facility] Comment on above: Performed By: #### L IPID, CMP, URIC ####[facility] [address] [place], [place] [address]Dr. Sarah Nap[address] CT LUNG CANCER SCREENINGon 1 [...] JOVANNI MILLAN Date: 2022-07-21 22:18 Normal [facility] CBC AUTO DIFFon 06-16-2022 BASO # 0.1 103/ul Normal 0.0-0.1 [facility] Comment on above: Performed By: #### C BC ####[facility] [address] [place] [address]Dr. Sarah Napoles Basophils/100 WBC (Bld) 0.9 % Normal 0.2-2.0 [facility] Comment on above: Performed By: #### C BC ####[facility] [address] [place], [place] [address]JwDr. Sarah Napoles EO # 0.2 103/ul Normal 0.0-0.7 [facility] Comment on above: Performed By: #### C BC ####[facility] [address] [place] [address]Dr. Sarah Napoles Eosinophils/100 WBC (Bld) 2.5 % Normal 0.9-7.0 [facility] Comment on above: Performed By: #### C BC ####[facility] [address] [place], [place] [address]Dr. Sarah Napoles Erythrocyte distribution width (RBC) [Ratio] 13.4 % Normal 11.0-15.0 [facility] Comment on above: Performed By: #### C BC ####[facility] [address] [place], [place] [address]Dr. Sarah Napoles Hematocrit (Bld) [Volume fraction] 33.3 % Critically low 36.0-48.0 [facility] Comment on above: Performed By: #### C BC ####[facility] [address] [place], [place] [address]Dr. Sarah Napoles Hemoglobin (Bld) [Mass/Vol] 10.8 g/dL Critically low 12.0-16.0 [facility] Comment on above: Performed By: #### C BC ####[facility] [address] [place], [place] [address]Dr. Sarah Napoles IG # 0.03 10e3/ul Normal 0.00-0.03 [facility] Comment on above: Performed By: #### C BC ####[facility] [address] [place], [place] [address]Dr. Sarah Napoles IG % 0.4 % Normal 0.0-0.5 [facility] Comment on above: Performed By: #### C BC ####[facility] [address] [place], [place] [address]Dr. Sarah Napoles LYMPH # 1.7 103/ul Normal 1.2-3.8 [facility] Comment on above: Performed By: #### C BC ####[facility] [address] [place], [place] [address]Dr. Sarah Napoles Lymphocytes/100 WBC (Bld) 20.4 % Critically low 20.5-60.0 [facility] Comment on above: Performed By: #### C BC ####[facility] [address] [place] [address]Dr. Sarah Napoles MANUAL DIFF REQ NO Normal [facility] Comment on above: Performed By: #### C BC ####[facility] [address] [place] [address]Dr. Sarah Napoles MCH (RBC) [Entitic mass] 32.0 pg Normal 26.7-34.0 [facility] Comment on above: Performed By: #### C BC ####[facility] [address] [place], [place] [address]Dr. Sarah Napoles MCHC (RBC) [Mass/Vol] 32.4 g/dL Normal 29.9-35.2 [facility] Comment on above: Performed By: #### C BC ####[facility] [address] [place], [place] [address]Dr. Sarah Napoles MCV (RBC) [Entitic vol] 98.8 fL Normal 81.0-99.0 [facility] Comment on above: Performed By: #### C BC ####[facility] [address] [place], [place] [address]DrJudy Napoles MONO # 0.9 103/ul Critically high 0.3-0.8 [facility] Comment on above: Performed By: #### C BC ####[facility] [address] [place], [place] [address]Dr. Sarah Napoles Monocytes/100 WBC (Bld) 11.0 % Normal 1.7-12.0 [facility] Comment on above: Performed By: #### C BC ####[facility] [address] [place], [place] [address]DrJudy Napoles NEUT # 5.3 103/ul Normal 1.4-6.5 [facility] Comment on above: Performed By: #### C BC ####[facility] [address] [place], [place] [address]DrJudy Napoles Neutrophils/100 WBC (Bld) 64.8 % Normal 43.0-75.0 [facility] Comment on above: Performed By: #### C BC ####[facility] [address] [place] [address]Dr. Sarah Dony Platelet mean volume (Bld) [Entitic vol] 10.8 fL Normal 9.5-13.5 [facility] Comment on above: Performed By: #### C BC ####[facility] [address] [place] [address]Dr. Charlinecassie Dony PLT 262 103/ul Normal 150-450 [facility] Comment on above: Performed By: #### C BC ####[facility] [address] [place] [address]Dr. Sarah Napoles RBC 3.37 106/ul Critically low 4.20-5.40 [facility] Comment on above: Performed By: #### C BC ####[facility] [address] [place], [place] [address]Dr. Sarah Napoles WBC 8.1 103/ul Normal 4.0-11.0 [facility] Comment on above: Performed By: #### C BC ####[facility] [address] [place], [place] [address]DrJudy Napoles GLYCOHEMOGLOBIN A1Con 2021 ADA RECOMMENDATION SEE BELOW Normal [facility] Comment on above: Result Comment: ADA RECOMMENDED LIMIT 4.0 - 6.0 ADA THERAPEUTIC TARGET < 7.0 ACTION SUGGESTED > 7.0 Performed By: #### A 1C ####[facility] [address] [place], [place] [address]DrJudy Napoles Glucose [Mass/Vol] 108 mg/dL Normal [facility] Comment on above: Performed By: #### A 1C ####[facility] [address] [place], [place] [address]DrJudy Napoles HbA1c (Bld) [Mass fraction] 5.4 % Normal 4.5-6.2 [facility] Comment on above: Performed By: #### A 1C ####[facility] Q[address] [place], [place] [address]Dr. Sarah Napoles LIPID PROFILEon 06-16-2022 CHOL-HDL RATIO NORM SEE BELOW Normal [facility] Comment on above: Result Comment: 3.3 - 4.4 LOW RISK 4.4 - 7.1 AVERAGE RISK 7.1 - 11.0 MODERATE RISK >11.0 HIGH RISK Performed By: #### C MP, LIPID #### [facility] [address], [place] [address] Dr. Sarah Napoles Cholesterol [Mass/Vol] 147 mg/dL Normal <=200 [facility] Comment on above: Performed By: #### C MP, LIPID #### [facility] [address] [place], [place] [address] Dr. Sarah Napoles Cholesterol in HDL [Mass/Vol] 58 mg/dL Normal 40-60 [facility] Comment on above: Performed By: #### C MP, LIPID #### [facility] [address] [place], [place] [address] Dr. Sarah Napoles Cholesterol in LDL [Mass/Vol] 68.0 mg/dL Normal [facility] Comment on above: Performed By: #### C MP, LIPID #### [facility] [address] [place], [place] [address] Dr. Sarah Napoles Cholesterol.total/Ch olesterol in HDL [Mass ratio] 2.5 {ratio} Normal [facility] Comment on above: Performed By: #### C MP, LIPID #### [facility] [address] [place], [place] [address] Dr. Sarah Napoles HDL NORMAL > or = 60 mg/dl - LO W CARDIOVASCULAR RISK <40 mg/dl - HIGH CARDIOVASCULAR RISK Normal [facility] Comment on above: Performed By: #### C MP, LIPID #### [facility] [address] [place], [place] [address] Dr. Sarah Napoles LDL CALC NORMAL SEE BELOW Normal [facility] Comment on above: Result Comment: <100 mg/dl OPTIMAL 100 - 129 mg/dl NEAR OR ABOVE OPTIMAL 130 - 159 mg/dl BORDERLINE HIGH 160 - 189 mg/dl HIGH >190 mg/dl VERY HIGH Performed By: #### C MP, LIPID #### [facility] [address] [place] [address] Dr. Sarah Napoles Triglyceride [Mass/Vol] 105 mg/dL Normal <=150 [facility] Comment on above: Performed By: #### C MP, LIPID #### [facility] [address] [place] [address] Dr. Sarah Napoles VLDL CALC 21.0 mg/dL Normal [facility] Comment on above: Performed By: #### C MP, LIPID #### [facility] [address] [place] [address] Dr. Sarah Napoles PROF 14(COMP METB)on 022 Albumin [Mass/Vol] 4.0 g/dL Normal 3.4-5.0 [facility] Comment on above: Performed By: #### C MP, LIPID #### [facility] [address] [place] [address] Dr. Sarah Napoles Albumin/Globulin [Mass ratio] 1.2 {ratio} Normal [facility] Comment on above: Performed By: #### C MP, LIPID #### [facility] [address] [place] [address] Dr. Sarah Napoles ALP [Catalytic activity/Vol] 53 U/L Normal 46-116 [facility] Comment on above: Performed By: #### C MP, LIPID #### [facility] [address] [place] [address] Dr. Sarah Napoles ALT [Catalytic activity/Vol] 32 U/L Normal 14-59 [facility] Comment on above: Performed By: #### C MP, LIPID #### [facility] [address] [place] [address] Dr. Sarah Napoles Anion gap [Moles/Vol] 8.0 mmol/L Normal [facility] Comment on above: Performed By: #### C MP, LIPID #### [facility] [address] [place] [address] Dr. Sarah Napoles AST [Catalytic activity/Vol] 23 U/L Normal 15-37 [facility] Comment on above: Performed By: #### C MP, LIPID #### [facility] [address] [place] [address] Dr. Sarah Napoles Bilirubin [Mass/Vol] 0.4 mg/dL Normal 0.2-1.0 [facility] Comment on above: Performed By: #### C MP, LIPID #### [facility] [address] [place] [address] Dr. Sarah Napoles Calcium [Mass/Vol] 9.4 mg/dL Normal 8.5-10.1 [facility] Comment on above: Performed By: #### C MP, LIPID #### [facility] [address] [place] [address] Dr. Sarah Napoles Chloride [Moles/Vol] 100 mmol/L Normal 98-107 [facility] Comment on above: Performed By: #### C MP, LIPID #### [facility] [address] [place] [address] Dr. Sarah Napoles CO2 [Moles/Vol] 30.8 mmol/L Normal 21.0-32.[address] [facility] Comment on above: Performed By: #### C MP, LIPID #### [facility] [address] [place] [address] Dr. Sarah Napoles Creatinine [Mass/Vol] 0.68 mg/dL Normal 0.55-1.02 [facility] Comment on above: Performed By: #### C MP, LIPID #### [facility] [address] [place] [address] Dr. Sarah Napoles EGFR-AF MACEDONIAN >60 Normal >=60 [facility] Comment on above: Performed By: #### C MP, LIPID #### [facility] [address] [place] [address] Dr. Sarah Napoles EGFR-NON AF MACEDONIAN >60 Normal >=60 [facility] Comment on above: Performed By: #### C MP, LIPID #### [facility] [address] [place] [address] Dr. Sarah Napoles Globulin (S) [Mass/Vol] 3.3 g/dL Normal [facility] Comment on above: Performed By: #### C MP, LIPID #### [facility] [address] [place] [address] Dr. Sarah Napoles Glucose [Mass/Vol] 90 mg/dL Normal 74-106 [facility] Comment on above: Performed By: #### C MP, LIPID #### [facility] [address] [place] [address] [address] Sarah Napoles Potassium [Moles/Vol] 3.8 mmol/L Normal 3.5-5.1 [facility] Comment on above: Performed By: #### C MP, LIPID #### [facility] [address] [place] [address] Dr. Sarah Napoles Protein [Mass/Vol] 7.3 g/dL Normal 6.4-8.2 [facility] Comment on above: Performed By: #### C MP, LIPID #### [facility] [address] [place] [address] [address] Sarah Napoles Sodium [Moles/Vol] 135 mmol/L Critically low 136-145 [facility] Comment on above: Performed By: #### C MP, LIPID #### [facility] [address] [place] [address] [address] Sarah Napoles Urea nitrogen [Mass/Vol] 13.0 mg/dL Normal 7.0-18.0 [facility] Comment on above: Performed By: #### C MP, LIPID #### [facility] [address] [place] [address] Dr. Sarah Napoles Urea nitrogen/Creatinine [Mass ratio] 19.1 mg/mg Normal [facility] Comment on above: Performed By: #### C MP, LIPID #### [facility] [address] [place] [address] [address] Sarah Napoles POC GLUCOSE LABon 01-03-2021 Glucose [Mass/Vol] 119 mg/dL High 70-100 [facility] Comment on above: Performed By: #### 8 [id number] #### [facility] [address] [facility] [place] [address], [facility] Glucose [Mass/Vol] 145 mg/dL High 70-100 [facility] Comment on above: Performed By: #### 8 [id number] #### [facility] [address] [place] [address], [place] Glucose [Mass/Vol] 93 mg/dL Normal 70-100 [facility] Comment on above: Performed By: #### 8 [id number] #### [facility] [address] [place] [address], [place] Glucose [Mass/Vol] 99 mg/dL Normal 70-100 [facility] Comment on above: Performed By: #### 8 [id number] #### [facility] [address] [place] [address], [place] POC GLUCOSE LABon 01-02-2021 Glucose [Mass/Vol] 101 mg/dL High 70-100 [facility] Comment on above: Performed By: #### 8 [id number] #### [facility] [address] [place] [address], [place] Glucose [Mass/Vol] 127 mg/dL High 70-100 [facility] Comment on above: Performed By: #### 8 [id number] #### [facility] [address] [place] [address], [place] Glucose [Mass/Vol] 110 mg/dL High 70-100 [facility] Comment on above: Performed By: #### 8 [id number] #### [facility] [address] [place] [address], [place] BASIC METABOLIC PANELon -3 Calcium [Mass/Vol] 8.4 mg/dL Low 8.6-10.3 [facility] Comment on above: Order Comment: No: D o not add to previous draw Performed By: #### 8 [id number] #### [facility] [address] [place] [address], [place] Chloride [Moles/Vol] 106 mmol/L Normal 98-107 [facility] Comment on above: Order Comment: No: D o not add to previous draw Performed By: #### 8 [id number] #### [facility] [address] [place] [address], [place] CO2 [Moles/Vol] 29 mmol/L Normal 21-31 [facility] Comment on above: Order Comment: No: D o not add to previous draw Performed By: #### 8 [id number] #### [facility] [address] [place] [address], [place] Creatinine [Mass/Vol] 0.50 mg/dL Low 0.60-1.20 [facility] Comment on above: Order Comment: No: D o not add to previous draw Performed By: #### 8 [id number] #### [facility] [address] [place] [address], [place] GFR/1.73 sq M.predicted among blacks MDRD (S/P/Bld) [Vol rate/Area] mL/min/{1.73_m2} Normal >60 [facility] Comment on above: Order Comment: No: D o not add to previous draw Performed By: #### 8 [id number] #### [facility] [address] [place] [address], [place] GFR/1.73 sq M.predicted among non-blacks MDRD (S/P/Bld) [Vol rate/Area] mL/min/{1.73_m2} Normal >60 [facility] Comment on above: Order Comment: No: D o not add to previous draw Performed By: #### 8 [id number] #### [facility] [address] [place] [address], [place] Glucose [Mass/Vol] 88 mg/dL Normal 70-[address] [facility] Comment on above: Order Comment: No: D o not add to previous draw Performed By: #### 8 [id number] #### [facility] [address] [place] [address], [place] Potassium [Moles/Vol] 3.3 mmol/L Low 3.5-5.1 [facility] Comment on above: Order Comment: No: D o not add to previous draw Performed By: #### 8 [id number] #### [facility] [address] [place] [address], [facility] Sodium [Moles/Vol] 141 mmol/L Normal 136-145 [facility] Comment on above: Order Comment: No: D o not add to previous draw Performed By: #### 8 [id number] #### [facility] [address] [place] [address], [facility] Urea nitrogen [Mass/Vol] 10 mg/dL Normal 7-25 [facility] Comment on above: Order Comment: No: D o not add to previous draw Performed By: #### 8 [id number] #### [facility] [address] [facility] [place] [place] [address], [facility] CBC W/DIFFon 01-01-2021 ABS IMM GRANS 0.1 10*3/uL Normal 0.0-0.2 [facility] Comment on above: Order Comment: No: D o not add to previous draw Performed By: #### 5 0103 #### [facility] [address] [place] [address], [facility] ABS NEUTROPHILS 10.1 10*3/uL High 1.6-7.6 [facility] Comment on above: Order Comment: No: D o not add to previous draw Performed By: #### 5 0103 #### [facility] [address] [place] [address], [facility] Basophils (Bld) [#/Vol] 0.0 10*3/uL Normal 0.0-0.2 [facility] Comment on above: Order Comment: No: D o not add to previous draw Performed By: #### 5 0103 #### [facility] [address] [place] [id number], [facility] Basophils/100 WBC (Bld) 0.2 % Normal 0.0-1.0 [facility] Comment on above: Order Comment: No: D o not add to previous draw Performed By: #### 5 0103 #### [facility] [address] [place] [address], [facility] Eosinophils (Bld) [#/Vol] 0.0 10*3/uL Normal 0.0-0.5 [facility] Comment on above: Order Comment: No: D o not add to previous draw Performed By: #### 5 0103 #### [facility] [address] [place] [address], [facility] Eosinophils/100 WBC (Bld) 0.1 % Normal 0.0-6.0 [facility] Comment on above: Order Comment: No: D o not add to previous draw Performed By: #### 5 0103 #### [facility] [address] [place] [address], [facility] Erythrocyte distribution width (RBC) [Ratio] 13.1 % Normal 11.5-15.0 [facility] Comment on above: Order Comment: No: D o not add to previous draw Performed By: #### 5 0103 #### [facility] [address] [facility] [place] [address], [facility] Hematocrit (Bld) [Volume fraction] 27.7 % Low 36.0-45.0 [facility] Comment on above: Order Comment: No: D o not add to previous draw Performed By: #### 5 0103 #### [facility] [address] [facility] [place] [address], [facility] Hemoglobin (Bld) [Mass/Vol] 9.2 g/dL Low 12.0-15.0 [facility] Comment on above: Order Comment: No: D o not add to previous draw Result Comment: RESU LTS CHECKED Performed By: #### 5 0103 #### [facility] [address] [place] [address], [facility] IMMATURE GRANS 0.4 % Normal 0.0-1.0 [facility] Comment on above: Order Comment: No: D o not add to previous draw Performed By: #### 5 0103 #### [facility] [address] [place] [address], [facility] Lymphocytes (Bld) [#/Vol] 1.8 10*3/uL Normal 1.2-4.0 [facility] Comment on above: Order Comment: No: D o not add to previous draw Performed By: #### 5 0103 #### [facility] [address] [place] [address], [facility] Lymphocytes/100 WBC (Bld) 13.6 % Low 20.0-45.0 [facility] Comment on above: Order Comment: No: D o not add to previous draw Performed By: #### 5 0103 #### [facility] [address] [facility] [address], [facility] MCH (RBC) [Entitic mass] 32.4 pg Normal 27.0-33.0 [facility] Comment on above: Order Comment: No: D o not add to previous draw Performed By: #### 5 0103 #### [facility] [address] [facility] [place] [place] [address], [facility] MCHC (RBC) [Mass/Vol] 33.2 g/dL Normal 32.0-35.0 [facility] Comment on above: Order Comment: No: D o not add to previous draw Performed By: #### 5 0103 #### [facility] [address] [place] [id number], [facility] MCV (RBC) [Entitic vol] 97.5 fL Normal 82.0-98.0 [facility] Comment on above: Order Comment: No: D o not add to previous draw Performed By: #### 5 0103 #### [facility] [address] [place] [id number], [facility] Monocytes (Bld) [#/Vol] 1.4 10*3/uL High 0.1-1.0 The [facility] [place] [facility] Comment on above: Order Comment: No: D o not add to previous draw Performed By: #### 5 0103 #### [facility] [address] [place] [address], [facility] MONOS 10.1 % Normal 5.0-12.0 [facility] Comment on above: Order Comment: No: D o not add to previous draw Performed By: #### 5 0103 #### [facility] [address] [place] [address], [place] Neutrophils/100 WBC (Bld) 75.6 % High 40.0-72.0 [facility] Comment on above: Order Comment: No: D o not add to previous draw Performed By: #### 5 0103 #### [facility] [address] [place] [address], [facility] Nucleated RBC/100 WBC (Bld) [Ratio] 0 % Normal 0-0 [facility] Comment on above: Order Comment: No: D o not add to previous draw Performed By: #### 5 0103 #### [facility] [address] [place] [address], [place] PLAT CNT 237 10*3/uL Normal 150-400 The [facility] Comment on above: Order Comment: No: D o not add to previous draw Performed By: #### 5 0103 #### [facility] [address] [place] [address], [facility] RBC (Bld) [#/Vol] 2.84 10*6/uL Low 3.80-5.00 The [facility] Comment on above: Order Comment: No: D o not add to previous draw Performed By: #### 5 0103 #### [facility] [address] [place] [address], [place] WBC (Bld) [#/Vol] 13.43 10*3/uL High 4.00-10.60 The [facility] Comment on above: Order Comment: No: D o not add to previous draw Performed By: #### 5 0103 #### [address] [place] [address], [facility] POC GLUCOSE LABon 01-01-2021 Glucose [Mass/Vol] 115 mg/dL High 70-100 [facility] Comment on above: Performed By: #### 8 5499 #### [facility] [address] [facility] [place] [address], [place] Glucose [Mass/Vol] 110 mg/dL High 70-100 [facility] Comment on above: Performed By: #### 8 5499 #### [address] [place] [address], [place] Glucose [Mass/Vol] 111 mg/dL High 70-100 [facility] Comment on above: Performed By: #### 8 5499 #### [address] [place] [address], [place] Glucose [Mass/Vol] 102 mg/dL High 70-100 [facility] Comment on above: Performed By: #### 8 5499 #### [address] [place] [address], [facility] HIP RIGHT 1 OR 2 VWS WITH PE LVISon 12-31-2020 HIP RIGHT 1 OR 2 VWS WITH PELVIS [facility] Department of Radiology [address] [place] [id number] Patient Name: BLANCA ENRIQUEZ : 1960 [...] reports Electronically signed: Panda Smith. Transcribed by: [email or web address], User Resident: SCHUYLER ORDRIGUES Electronically Signed by: PANDA SMITH @ 12/31/2020 04:29 PM I personally read this/these film(s) with this resident Normal The [facility] Comment on above: Order Comment: RIGHT ANTERIOR TOTAL HIP REPLACEMENT Operative Reporton Operative Report MR#: [id number] I [facility] Pt. Name: Blanca Enriquez Room #: [id number] Discharge Date: Birthdate: 1960 OPERATIVE REPORT DATE [...] right hip pain despite nonoperative measures. Has [id number] osteoarthritis of the right hip with subchondral [...] Roberts M.D. Date Trans: 12/31/2020 09:28 P/mmo [id number] Normal The [facility] POC GLUCOSE LABon 12-31-2020 Glucose [Mass/Vol] 167 mg/dL High 70-100 The [facility] Comment on above: Performed By: #### 8 5499 #### [facility] [address] [facility] [place] [address], [place] Glucose [Mass/Vol] 162 mg/dL High 70-100 [facility] Comment on above: Performed By: #### 8 5499 #### [facility] [address] [facility] [place] [address], [place] Glucose [Mass/Vol] 168 mg/dL High 70-100 [facility] Comment on above: Performed By: #### 8 5499 #### [facility] [address] [place] [address], [facility] Glucose [Mass/Vol] 104 mg/dL High 70-100 [facility] Comment on above: Performed By: #### 8 5499 #### [address] [address] PORTABLE HIP RIGHT 1 OR 2 VW S WITH PELVISon 12-31-2020 PORTABLE HIP RIGHT 1 OR 2 VWS WITH PELVIS [facility] Department of Radiology [address] [place] [id number] Patient Name: BLANCA ENRIQUEZ : 1960 [...] fracture Electronically signed: Panda Smith. Transcribed by: [email or web address], User Resident: Electronically Signed by: PANDA SMITH @ 12/31/2020 01:05 PM Normal The [facility] Comment on above: Order Comment: Hardw are Evaluation, PACU *MRSA/MSSA DNA NASALon 12-10 *MRSA/MSSA DNA NASAL Clinical Report: (D ) Specimen: NASAL SWAB Collected: 12/10/2020 13:55 Status: Final Last Updated: 12/11/2020 15:48 MSSA DNA (Final) Negative MRSA DNA (Final) Negative Normal [facility] Comment on above: Performed By: #### 8 [id number] #### [facility] [address] [place] [address], [facility] CBC W/DIFFon 12-10-2020 ABS IMM GRANS 0.0 10*3/uL Normal 0.0-0.2 The [facility] Comment on above: Performed By: #### 8 5499 #### [facility] [address] [place] [address], [facility] ABS NEUTROPHILS 7.7 10*3/uL High 1.6-7.6 The [facility] Comment on above: Performed By: #### 8 [id number] #### [facility] [address] [facility] [place] [address], [facility] Basophils (Bld) [#/Vol] 0.1 10*3/uL Normal 0.0-0.2 The [facility] Comment on above: Performed By: #### 8 [id number] #### [facility] [address] [facility] [place] [address], [facility] Basophils/100 WBC (Bld) 0.6 % Normal 0.0-1.0 The [facility] Comment on above: Performed By: #### 8 [id number] #### [facility] [address] [place] [address], [facility] Eosinophils (Bld) [#/Vol] 0.1 10*3/uL Normal 0.0-0.5 The [facility] Comment on above: Performed By: #### 8 [id number] #### [facility] [address] [place] [address], [facility] Eosinophils/100 WBC (Bld) 1.0 % Normal 0.0-6.0 The [facility] Comment on above: Performed By: #### 8 [id number] #### [facility] [address] [facility] [place] [address], [facility] Erythrocyte distribution width (RBC) [Ratio] 13.0 % Normal 11.5-15.0 The [facility] Comment on above: Performed By: #### 8 [id number] #### [facility] [address] [facility] [place] [address], [facility] Hematocrit (Bld) [Volume fraction] 36.2 % Normal 36.0-45.0 [facility] Comment on above: Performed By: #### 8 [id number] #### [facility] [address] [facility] [place] [address], [facility] Hemoglobin (Bld) [Mass/Vol] 11.9 g/dL Low 12.0-15.0 The [facility] Comment on above: Performed By: #### 8 [id number] #### [facility] [address] [facility] [place] [place] [address], [facility] IMMATURE GRANS 0.3 % Normal 0.0-1.0 The [facility] Comment on above: Performed By: #### 8 [id number] #### [facility] [address] [facility] [place] [place] [address], [facility] Lymphocytes (Bld) [#/Vol] 1.5 10*3/uL Normal 1.2-4.0 The [facility] Comment on above: Performed By: #### 8 [id number] #### [facility] [address] [place] [address], [facility] Lymphocytes/100 WBC (Bld) 15.1 % Low 20.0-45.0 The [facility] Comment on above: Performed By: #### 8 [id number] #### [facility] [address] [facility] [place] [address], [facility] MCH (RBC) [Entitic mass] 31.9 pg Normal 27.0-33.0 The [facility] Comment on above: Performed By: #### 8 [id number] #### [facility] [address] [facility] [place] [address], [facility] MCHC (RBC) [Mass/Vol] 32.9 g/dL Normal 32.0-35.0 The [facility] Comment on above: Performed By: #### 8 [id number] #### [facility] [address] [place] [address], [facility] MCV (RBC) [Entitic vol] 97.1 fL Normal 82.0-98.0 The [facility] Comment on above: Performed By: #### 8 [id number] #### [facility] [address] [facility] [place] [place] [address], [facility] Monocytes (Bld) [#/Vol] 0.7 10*3/uL Normal 0.1-1.0 [facility] Comment on above: Performed By: #### 8 [id number] #### [facility] [address] [place] [address], [facility] MONOS 7.3 % Normal 5.0-12.0 [facility] Comment on above: Performed By: #### 8 [id number] #### [facility] [address] [place] [address], [facility] Neutrophils/100 WBC (Bld) 75.7 % High 40.0-72.0 [facility] Comment on above: Performed By: #### 8 [id number] #### [facility] [address] [place] [address], [facility] Nucleated RBC/100 WBC (Bld) [Ratio] 0 % Normal 0-0 [facility] Comment on above: Performed By: #### 8 [id number] #### [facility] [address] [address], [facility] PLAT CNT 290 10*3/uL Normal 150-400 [facility] Comment on above: Performed By: #### 8 [id number] #### [facility] [address] [facility] [place] [address], [facility] RBC (Bld) [#/Vol] 3.73 10*6/uL Low 3.80-5.00 [facility] Comment on above: Performed By: #### 8 [id number] #### [facility] [address] [facility] [place] [address], [facility] WBC (Bld) [#/Vol] 10.11 10*3/uL Normal 4.00-10.60 [facility] Comment on above: Performed By: #### 8 [id number] #### [facility] [address] [place] [address], [facility] HEMOGLOBIN A1Con 12-10-2020 Glucose [Moles/Vol] 108 mmol/L Normal [facility] Comment on above: Performed By: #### 3 1791 #### [facility] [address] [facility] [place] [address], [facility] HbA1c (Bld) [Mass fraction] 5.4 % Normal 4.0-6.0 [facility] Comment on above: Performed By: #### 3 1791 #### [facility] [address] [facility] [place] [address], [facility] HIP RIGHT 1 OR 2 VWS WITH PE LVISon 11-22-2020 HIP RIGHT 1 OR 2 VWS WITH PELVIS [facility] Department of Radiology [address] [place] [phone] Patient Name: BLANCA ENRIQUEZ : 1960 Sex: [...] exam. Electronically signed: Rodney Sutherland. Transcribed by: [email or web address], User Resident: Electronically Signed by: RODNEY SUTHERLAND @ 11/22/2020 03:43 PM Normal [facility] Comment on above: Order Comment: Evalu ate Encounters Encounter Date Encounter Type Care Provider Facility Start: 03-15-2024 End: 03-15-2024 ambulatory SHAIKH REYES Not Available Start: 12-10-2023 End: 12-10-2023 ambulatory WHITFIELD FAWWAD Not Available Start: 11-12-2023 Orders Only Shaikh Reyes PALACIO Work Phone: [facility] Comment on above: Chronic left shoulde r pain; Chronic pain of left knee Start: 11-09-2023 End: 11-10-2023 ambulatory Chikis May MD Facility: [facility] Start: 09-08-2023 End: 09-08-2023 ambulatory WHITFIELD FAWWAD Not Available Start: 09-08-2023 Patient encounter procedure Shaikh Reyes PALACIO Work Phone: [facility] Start: 06-29-2023 End: 06-30-2023 ambulatory Chikis May MD Facility: [facility] Start: 06-22-2023 End: 06-23-2023 ambulatory Chikis May MD Facility: [facility] Start: 03-03-2023 End: 03-04-2023 ambulatory WHITFIELD [...] Start: 12-31-2020 End: 01-03-2021 ambulatory PHYSICIAN UNKNOWN Facility:[facility] Procedures Date Procedure Procedure Detail Performing Clinician Start: 09-08-2023 Mammography Shaikh Mayelin rankin MD Work Phone: Start: 12-31-2020 ANESTH HIP ARTHROPLASTY HERMINIO ROBERTS Start: 12-31-2020 JOINT DEVICE (IMPLANTABLE) HERMINIO ROBERTS Start: 12-31-2020 TOTAL HIP ARTHROPLASTY HERMINIO ROBERTS Start: 10-05-2017 Colonoscopy Shaikh Mayelin rankin MD Work Phone: Plan of Treatment Date Care Activity Detail Author Start: 10-05-2027 Screening for malign ant neoplasm of colon [facility] Start: 09-08-2024 Medicare Annual Well ness (AWV) Medicare Annual Wellness (AWV) [facility] Start: 09-08-2024 Screening for malign ant neoplasm of breast Mammogram [facility] Start: 12-09-2023 End: 12-09-2023 Patient encounter procedure 12/09/2023 3:30 PM EST Office Visit [facility] [address] [place] [phone] Shaikh Chambers MD [address] [place] [id number] [facility] Start: 06-05-2023 Influenza vaccination Influenza Vacc ine (#1) [facility] Start: 2023 Pneumococcal Vaccine : 65+ Years (1 - PCV) Pneumococcal Vaccine: 65+ Years (1 - PCV) [facility] Start: 1988 Screening for malign ant neoplasm of cervix [facility] Start: 1979 Screening for malign ant neoplasm of cervix Pap Smear [facility] Start: 1960 Screening for malign ant neoplasm of colon [facility] Immunizations Immunization Date Immunization Notes Care Provider Fa cility 10-01-2022 influenza virus vacc ine, unspecified formulation Shaikh Reyes PALACIO Work Phone: [facility] Payers Date Payer Category Payer Unknown 2021 Medicare ANTH MEDICARE ADVANTAGE COUNT INCLUDES THE [facility] MEDICARE ADVANTAGE [id number] 2021-Present [address] [place] [address] [id number] 1961 Unknown [id number] 1960 Unknown [id number] [id number] 1960 Unknown [id number] 2.16.840.1.426947.3.579.2.593 1960 Unknown [id number] 2.16.840.1.856450.3.579.2.593 1960 Unknown [id number] 2.16.840.1.343319.3.579.2.593 1960 Unknown [id number] 2.16.840.1.019416.3.579.2.593 1960 Unknown [id number] 2.16.840.1.387614.3.579.2.593 1960 Unknown [id number] 2.16.840.1.579993.3.579.2.593 1960 Unknown [id number] 2.16.840.1.706926.3.579.2.593 1960 Unknown [id number] 2.16.840.1.747650.3.579.2.593 1960 Unknown [id number] 2.16.840.1.654605.3.579.2.593 1960 Unknown [id number] 2.16.840.1.040390.3.579.2.196 1960 Unknown [id number] 2.16.840.1.343302.3.579.2.196 1960 Unknown [id number] 2.16.840.1.363345.3.579.2.196 1960 Unknown [id number] 2.16.840.1.171922.3.579.2.125 9 1960 Unknown [id number] 2.16.840.1.688971.3.579.2.125 9 1960 Unknown [id number] 2.16.840.1.127773.3.579.2.125 9 Social History Date Type Detail Facility Start: 09-08-2023 Tobacco smoking status WYIS Ex-smoke r [facility] End: 12-03-2020 History of tobacco use Current smoker [facility] End: 12-03-2020 History of tobacco use Cigarette Smoker [facility] Start: 09-08-2023 Cigarettes smoked cu rrent (pack per day) - Reported 1 [facility] Start: 09-08-2023 Tobacco use and exposure Smoke less tobacco non-user [facility] Start: 09-08-2023 Alcohol intake Ex-drinker (finding) [facility] Start: 09-08-2023 Humiliation, Afraid, Rape, and Kick questionnaire [HARK] [facility] Within the last year , have you been afraid of your partner or ex-partner? No [facility] In a typical week, h ow many times do you talk on the telephone with family, friends, or neighbors? Patient refused [facility] Do you belong to any clubs or organizations such as baptism groups, unions, fraternal or athletic groups, or [...] to buy more. Never true [facility] Start: 08-20-2023 Tobacco Comment Last smoked 1-5 year s [facility] Start: 09-08-2023 Alcohol Comment quit 10 years ago [facility] Start: 1960 Sex Assigned At Not on file [facility] Clinical Note 12-17-2022 Note Date & [...] by: JOVANNI MILLAN Date: 2022-12-17 16:26 [facility] Evaluation note Note Date & Type Note Facility Evaluation note Diagnosis Chronic left shoulder pain Pain in joint, shoulder region Chronic pain of left knee documented in this encounter [facility] Summary Purpose Family History No Family History Records FoundNo Family History Records FoundNo Family History Records FoundNo Family History Records Found Advance Directives No Advanced Directives Records FoundNo Advanced Directives Records FoundNo Advanced Directives Records FoundNo Advanced Directives Records Found Additional Source Comments INFORMATION SOURCE (unrecogn ized section and content) DATE CREATED AUTHOR 02/27/2021 [facility] DATE CREATED AUTHOR AUTHOR'S ORGANIZ ATION 03/13/2023 [facility] DATE CREATED AUTHOR AUTHOR'S ORGANIZ ATION 12/11/2023 [facility] DATE CREATED AUTHOR AUTHOR'S ORGANIZ ATION 03/16/2024 [facility] [employer] EPIC Care Teams (unrecognized sec tion and content) 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 [facility] [facility]. provides no warranty or guarantee of the accuracy or completeness of information in this document.
== END 2024-03-25 12:51 | disposition home or self-care (01) ==
LOC: CT 12:50
PROVIDERS: PCP Internal Medicine; Visit Provider Student in an Organized Health Care Education/Training Program
DX: M12.812 Other specific arthropathies, not elsewhere classified, left shoulder (principal); M75.122 Complete rotator cuff tear or rupture of left shoulder, not specified as traumatic
CPT/HCPCS: 73200

== ENCOUNTER 2024-04-14 13:57 | Outpatient (OUT) | payer MEDICARE, SELFPAY ==
--- NOTE | 2024-04-14 14:21 | P.CN_ITS ---
Consult Note: HPI Data of Consult Patient: known to practice within the last 3 years Consult date: 06/29/23 Requesting Physician: Deysi Zhou NP Primary Care Provider: Shaikh Reyes MD Consult Narrative Reason for consult: Left neck and shoulder pain Narrative: Pleasant 63yof who presents for assessment. Notes persistence of pain from left neck and shoulder. Cervical imaging reviewed, which is significant for moderate to severe spondylosis at C5-6 and C6-7. Completed physical therapy and continues in provider directed home exercise program >6 weeks, with limited benefit. Has had left shoulder injection previously, with limited benefit. Currently taking gabapentin 300mg TID without benefit. Denies adverse medication side effects. Preivously underwent left C5/6 C6/7 facet medial branch block #1 with no improvement. Patient has been evaluated by Dr Cox/Martín for left shoul royce pain, recent CT shows severe OA and chronic rotator cuff injury. Patient has not returned as she owes them $80 before she can be seen again. Patient would like to discuss her chronic pain options here. cc:: CC: Deysi Zhou NP Review of Systems ROS Status of ROS 10 or more systems reviewed and unremark able except as noted in history and below Meds Home Medications and Allergies Home Medications ?Medication ?Instructions ?Recorded ?Confirmed ?Type acetaminophen 325 mg tablet 650 mg PO Q6H PRN pain 06/22/23 11/09/23 History (Tylenol) nabumetone 500 mg tablet 500 mg PO BID 06/22/23 11/09/23 History oxycodone 5 mg capsule 5 mg PO BID 06/22/23 11/09/23 History TUMERIC QDAY 06/24/23 History Vitamin B-Complex QDAY 06/24/23 History alendronate 35 mg tablet 35 mg PO QWEEK 06/24/23 11/09/23 History allopurinol 100 mg tablet 100 mg PO BID 06/24/23 11/09/23 History ascorbate calcium (vitamin C) 500 500 mg PO DAILY 06/24/23 11/09/23 History mg tablet bromelains 375 mg capsule mg PO 06/24/23 History calcium carb-ergocalciferol (vit tab PO 06/24/23 History D2) 600 mg calcium-200 unit tablet carvedilol 25 mg tablet (Coreg) 25 mg PO Q12H 06/24/23 11/09/23 History cholecalciferol (vitamin D3) 50 50 mcg PO DAILY 06/24/23 11/09/23 History mcg (2,000 unit) tablet (D3 DOTS) cinnamon bark 500 mg capsule 1,000 mg PO DAILY 06/24/23 11/09/23 History (Cinnamon) coenzyme Q10 100 mg capsule (Co 200 mg PO DAILY 06/24/23 11/09/23 History Q-10) cranberry extract 500 mg capsule 500 mg PO DAILY 06/24/23 11/09/23 History diphenhydramine HCl 50 mg capsule 100 mg PO QDAY 06/24/23 11/09/23 History evening primrose oil 500 mg capsule 500 mg PO DAILY 06/24/23 11/09/23 History famotidine 20 mg tablet (Pepcid) 20 mg PO DAILY 06/24/23 11/09/23 History gabapentin 300 mg capsule 300 mg PO TID 06/24/23 11/09/23 History garlic 1,000 mg capsule (garlic 1,000 mg PO DAILY 06/24/23 11/09/23 History oil) ginkgo biloba 120 mg tablet 120 mg PO DAILY 06/24/23 11/09/23 History glucosamine sulfate 1,000 mg 1,000 mg PO DAILY 06/24/23 11/09/23 History capsule grape seed extract 50 mg capsule 100 mg PO DAILY 06/24/23 11/09/23 History green tea leaf extract 250 mg 500 mg PO QDAY 06/24/23 11/09/23 History capsule (Green Tea) hydrochlorothiazide 25 mg tablet 25 mg PO DAILY 06/24/23 11/09/23 History loratadine 10 mg capsule 10 mg PO DAILY 06/24/23 11/09/23 History losartan 100 mg tablet 100 mg PO DAILY 06/24/23 11/09/23 History melatonin 10 mg tablet 20 mg PO DAILY 06/24/23 11/09/23 History multivitamin 1 tab PO DAILY 06/24/23 11/09/23 History omega 9-spd-fac-fish oil 1,000 mg 2 cap PO DAILY 06/24/23 11/09/23 History (120 mg-180 mg) capsule (Fish Oil) paroxetine HCl 10 mg tablet (Paxil) 10 mg PO DAILY 06/24/23 11/09/23 History simvastatin 20 mg tablet 20 mg PO DAILY 06/24/23 11/09/23 History vitamin E 200 unit capsule 200 unit PO DAILY 06/24/23 11/09/23 History Allergies Allergy/AdvReac Type Severity Reaction Status Date / Time aspirin Allergy Mild unkown Verified 11/09/23 10:11 Exam Constitutional Documenting provider has reviewed patient's vital signs: yes Common normals: no apparent distress, oriented x3, healthy appearing, alert and well nourished General appearance: cooperative HENMT Common normals: normocephalic, hearing grossly normal bilaterally and moist oral mucous membranes Head and scalp: normocephalic Eye Common normals: PERRL Pupil: PERRL Neck & C-Spine Common normals: full ROM General: normal visual inspection Cervical spine: pain with cervical ROM, cervical spine tenderness and paracervical muscle tenderness Chest Common normals: inspection of chest normal Respiratory Common normals: normal respiratory effort, no retractions and no use of accessory muscles Extremity Left upper extremity: shoulder joint Other: left shoulder limited ROM, unable to lift arm above head, weakness to LUE 4/5 sensation intact posterior lift off positive, positive apley scratch test Neuro Common normals: oriented x3, CN's II-XII intact bilaterally, moves all extremities, no focal motor deficits, no sensory deficits noted and deep tendon reflexes 2+ bilaterally Sensorium/orientation: alert Motor exam: strength 5/5 throughout and no movement abnormalities noted Psych Common normals: mental status grossly normal, thought process normal, cooperative, affect normal, speech normal and activity/motor behavior normal Speech: normal speech Thought process: normal thought process Results Additional Findings Additional findings: If on a controlled substance or opioids, I have checked an [place] report on this patient and there are no aberrancies noted in the prescribing history.??If on a controlled substance or opioid a drug screen was completed and reviewed within the last year, and if there has not been a drug screen completed we ordered one today to monitor higher risk, state monitored pain medication use. As part of providing excellent, safe, comprehensive care, the following was completed at our patient's visit: 1. A medication reconciliation and review to ensure accurate knowledge of current/active medications, including asking our patients to inform us about any [id number] medications or herbal remedies/nutritional supplemen ts/alternative remedies. 2. A review to specifically ensure our patients have had annual screening for screening for depression, screening for tobacco use, and screening for unhealthy alcohol use. For concerning screenings had a discussion with the patient, provided patient education, and recommended follow-up with primary care provider when appropriate. If patient noted with a risk of falling, they received education on strength, gait, and balance training to prevent future risk of falling. Assessment and Plan Assessment and Plan (1) Left shoulder pain: (2) Rotator cuff tear arthropathy of left shoulder: (3) Osteoarthritis of left shoulder: Plan left suprascapular and axillary nerve block under fluoroscopy working towards thermal RFA f/u after injection
== END 2024-04-14 13:58 | disposition home or self-care (01) ==
LOC: PM 13:57
PROVIDERS: PCP Internal Medicine; Visit Provider Nurse Practitioner
DX: M25.512 Pain in left shoulder (principal); M75.102 Unspecified rotator cuff tear or rupture of left shoulder, not specified as traumatic; M19.012 Primary osteoarthritis, left shoulder
CPT/HCPCS: G0463

== ENCOUNTER 2024-05-02 08:21 | Day surgery (SDC) | payer MEDICARE, SELFPAY ==
--- OUTSIDE RECORDS SUMMARY | 2024-05-02 08:27 | XMS_ITS | CCD ---
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 Name Role Phone UNKNOWN, PHYSICIAN Primary Care Unavailable UNKNOWN, PHYSICIAN Referring Unavailable HERMINIO ROBERTS Admitting Unavailable HERMINIO ROBERTS Attending Unavailable HERMINIO ROBERTS Surgeon Unavailable [place] Procedure Practitioner Unavailab SHAIKH Garcia H Consulting Unavailable FAWWAD, WHITFIELD H Attending [...] MARIA ANTONIA Toro Admitting Unavailable WEST, DR MARI AANTONIA Toro Consulting Unavailable CAITY, DR JOVANNI Ashraf [...] Unavailable Shaikh Chambers MD Primary Care Provider Lalo PALACIO, Chikis Henderson Attending Unavailable Lalo PALACIO, Chikis Henderson Attending Unavailable Lalo PALACIO, Chikis Henderson Attending Unavailable SHAIKH CHAMBERS Attending Unavailable SHAIKH CHAMBERS Attending Unavailable SHAIKH CHAMBERS Attending Unavailable Allergies Allergy Classification Reported Allergen(s) Allergy Type Date of Onset Reaction(s) Facility Aspirin (1 source) Aspirin; Translations: [ASPIRIN] Drug Allergy 12-26-2020 [facility] Repository (1 source) Amino Acids Drug Allergy [facility] Repository (1 source) Aspirin Drug Allergy [facility] Repository (1 source) Aluminum aspirin Drug Allergy 04-30-2023 Rash [facility] Medications Current Medications Medication Drug [...] 1000 mg oral capsule (1 source) Evening Gotebo Oil 1000 MG capsule as directed Orally [...] DR MARIA ANTONIA CONRAD M.D. Admission #: [id number] Family : Order #: [id number] CLICK HERE TO VIEW EXAM RADIOLOGY REPORT [...] 03/03/2023 at 13:44 Approved by: Maria Antonia Cnorad MD on 03/03/2023 at 13:46 Normal [facility] VC EXT VENOUS RT LIMITEDon 0 03-03-2023 VC EXT VENOUS RT LIMITED Patient: BLANCA ENRIQUEZ Exam Date: 03/03/2023 : 1960 Gender:F Ordering : DR MARIA ANTONIA CONRAD M.D. Admission #: [id number] Family : Order #: [id number] CLICK HERE TO VIEW EXAM RADIOLOGY REPORT [...] MD on 03/03/2023 at 13:10 Normal [facility] VC ENDOVENOUS ABL 1ST V RTon 02-25-2023 VC ENDOVENOUS ABL 1ST V RT Patient: BLANCA ENRIQUEZ Exam Date: 02/25/2023 : 1960 Gender:F Ordering : DR MARIA ANTONIA CONRAD M.D. Admission #: [id number] Family : Order #: [id number] CLICK HERE TO VIEW EXAM RADIOLOGY REPORT [...] Millan M.D. on 02/25/2023 at 15:01 Normal [facility] VC CONSULT FOLLOWUPon 2022 VC CONSULT FOLLOWUP Patient: BLANCA ENRIQUEZ Exam Date: 02/09/2023 : 1960 Gender:F Ordering : DR MARIA ANTONIA CONRAD M.D. Admission #: [id number] Family : Order #: [id number] CLICK HERE TO VIEW EXAM RADIOLOGY REPORT [...] Millan M.D. on 02/09/2023 at 11:43 Normal [facility] VC EXT VENOUS LT LIMITEDon 0 02-09-2023 VC EXT VENOUS LT LIMITED Patient: BLANCA ENRIQUEZ Exam Date: 02/09/2023 : 1960 Gender:F Ordering : DR MARIA ANTONIA CONRAD M.D. Admission #: [id number] Family : Order #: [id number] CLICK HERE TO VIEW EXAM RADIOLOGY REPORT [...] Jovanni Millan M.D. on 02/09/2023 at 11:35 [facility] VC ENDOVENOUS ABL 1ST V LTon 02-02-2023 VC ENDOVENOUS ABL 1ST V LT Patient: LBANCA ENRIQUEZ Exam Date: 02/02/2023 : 1960 Gender:F Ordering : DR MARIA ANTONIA CONRAD M.D. Admission #: [id number] Family : Order #: [id number] CLICK HERE TO VIEW EXAM RADIOLOGY REPORT [...] Millan M.D. on 02/02/2023 at 14:17 Normal [facility] VC COMP CONSULTATIONon 01-08 VC COMP CONSULTATION Patient: BLANCA ENRIQUEZ Exam Date: 01/08/2023 : 1960 Gender:F Ordering : DR MARIA ANTONIA CONRAD M.D. Admission #: [id number] Family : Order #: [id number] CLICK HERE TO VIEW EXAM RADIOLOGY REPORT [...] saphenous, mild to moderate right small saphenous ciml-zd-opleilzg left anterior accessory saphenous vein venous insufficiency [...] Conrad MD on 01/08/2023 at 15:14 Normal [facility] VC VENOUS REFLUX SARITHA LMTon 0 01-08-2023 VC VENOUS REFLUX SARITHA LMT Patient: BLANCA ENRIQUEZ Exam Date: 01/08/2023 : 1960 Gender:F Ordering : DR MARIA ANTONIA CONRAD M.D. 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 [...] Bilateral incompetent varicose veins 5. Left incompetent forge helper veins 6. Left suprapatellar fluid collection likely joint effusion and popliteal lesion likely a cyst Dictated by: Maria Antonia Conrad MD on 01/08/2023 at 13:50 Approved by: Maria Antonia Conrad MD on 01/08/2023 at 13:52 Normal [facility] XR KNEE SARITHA 4V or >on [...] by: JOVANNI MILLAN Date: 2022-12-17 16:24 Normal [facility] XR SHOULDER SARITHA 2V or >on XR [...] narrowing of the glenohumeral joints with likely fvrx-qg-jrmt contact. Degenerative osteophyte along the inferior articular [...] by: JOVANNI MILLAN Date: 2022-12-17 16:32 Normal [facility] CBC AUTO DIFFon 12-15-2022 BASO # 0.1 103/ul Normal 0.0-0.1 [facility] Comment on above: Performed By: #### C BC ####[facility] [address] [place], [place] [address]LlJudy Smith Napoles Basophils/100 WBC (Bld) 0.8 % Normal 0.2-2.0 [facility] Comment on above: Performed By: #### C BC ####[facility] [address] [place] [address]Dr. Sarah Napoles EO # 0.2 103/ul Normal 0.0-0.7 [facility] Comment on above: Performed By: #### C BC ####[facility] [address]jq[address] [place] [address]Dr. Sarah Napoles Eosinophils/100 WBC (Bld) 2.3 % Normal 0.9-7.0 [facility] Comment on above: Performed By: #### C BC ####[facility] [address] [place], [place] [address]Dr. Sarah Napoles Erythrocyte distribution width (RBC) [Ratio] 13.2 % Normal 11.0-15.0 [facility] Comment on above: Performed By: #### C BC ####[facility] Xngxj[address] [place], [place] [address]Dr. Sarah Napoles Hematocrit (Bld) [Volume fraction] 34.3 % Critically low 36.0-48.0 [facility] Comment on above: Performed By: #### C BC ####[facility] Odw[address] [place], [place] [address]Dr. Sarah Napoles Hemoglobin (Bld) [Mass/Vol] 11.5 g/dL Critically low 12.0-16.0 [facility] Comment on above: Performed By: #### C BC ####[facility] Qxl[address] [place], [place] [address]Dr. Sarah Napoles IG # 0.02 10e3/ul Normal 0.00-0.03 [facility] Comment on above: Performed By: #### C BC ####[facility] J[address] [place], [place] [address]Dr. Sarah Napoles IG % 0.2 % Normal 0.0-0.5 [facility] Comment on above: Performed By: #### C BC ####[facility] Oy[address]ow[address] [place], [place] [address]Dr. Charlinecassie Napoles LYMPH # 1.8 103/ul Normal 1.2-3.8 [facility] Comment on above: Performed By: #### C BC ####[facility] [address] [place] [id number]. Charlinecassie Napoles Lymphocytes/100 WBC (Bld) 19.8 % Critically low 20.5-60.0 [facility] Comment on above: Performed By: #### C BC ####[facility] [address]bm[address] [place] [id number]. Sarah Napoles MANUAL DIFF REQ NO Normal [facility] Comment on above: Performed By: #### C BC ####[facility] [address]oulw[address] [place] [phone]. Sarah Napoles MCH (RBC) [Entitic mass] 32.2 pg Normal 26.7-34.0 [facility] Comment on above: Performed By: #### C BC ####[facility] [address]px[address]fw[address] [place] [phone]. Sarah Napoles MCHC (RBC) [Mass/Vol] 33.5 g/dL Normal 29.9-35.2 [facility] Comment on above: Performed By: #### C BC ####[facility] [address]qwrak[address] [place] [phone]. Sarah Napoles MCV (RBC) [Entitic vol] 96.1 fL Normal 81.0-99.0 [facility] Comment on above: Performed By: #### C BC ####[facility] [address]fq[address]weke[address] [place] [phone]. Sarah Napoles MONO # 0.8 103/ul Normal 0.3-0.8 [facility] Comment on above: Performed By: #### C BC ####[facility] Vjcrskyefg[address] [place] [phone]. Sarah Napoles Monocytes/100 WBC (Bld) 9.5 % Normal 1.7-12.0 [facility] Comment on above: Performed By: #### C BC ####[facility] [address] [place], [place] [address]Dr. Sarah Napoles NEUT # 6.0 103/ul Normal 1.4-6.5 [facility] Comment on above: Performed By: #### C BC ####[facility] [address] [place] [phone]. Sarah Napoles Neutrophils/100 WBC (Bld) 67.4 % Normal 43.0-75.0 [facility] Comment on above: Performed By: #### C BC ####[facility] [address] [place] [phone]. Sarah Napoles Platelet mean volume (Bld) [Entitic vol] 10.1 fL Normal 9.5-13.5 [facility] Comment on above: Performed By: #### C BC ####[facility] V[address]ej[address]sp[address] [place] [phone]. Sarah Napoles PLT 283 103/ul Normal 150-450 [facility] Comment on above: Performed By: #### C BC ####[facility] [address]irw[address] [place] [phone]. Sarah Napoles RBC 3.57 106/ul Critically low 4.20-5.40 [facility] Comment on above: Performed By: #### C BC ####[facility] [address]kv[address] [place] [phone]. Sarah Napoles WBC 8.8 103/ul Normal 4.0-11.0 [facility] Comment on above: Performed By: #### C BC ####[facility] Ox[address]lal[address] [place] [phone]. Sarah Napoles GLYCOHEMOGLOBIN A1Con 2022 ADA RECOMMENDATION SEE BELOW Normal [facility] Comment on above: Result Comment: ADA RECOMMENDED LIMIT 4.0 - 6.0 ADA THERAPEUTIC TARGET < 7.0 ACTION SUGGESTED > 7.0 Performed By: #### A 1C ####[facility] [address] [place] [phone]. Sarah Napoles Glucose [Mass/Vol] 105 mg/dL Normal [facility] Comment on above: Performed By: #### A 1C ####[facility] [address] [place] [phone]. Sarah Napoles HbA1c (Bld) [Mass fraction] 5.3 % Normal 4.5-6.2 [facility] Comment on above: Performed By: #### A 1C ####[facility] [address] [place] [phone]. Charlinecassie Dony LIPID PROFILEon 12-15-2022 CHOL-HDL RATIO NORM SEE BELOW Normal [facility] Comment on above: Result Comment: 3.3 - 4.4 LOW RISK 4.4 - 7.1 AVERAGE RISK 7.1 - 11.0 MODERATE RISK >11.0 HIGH RISK Performed By: #### L IPID, CMP, URIC ####[facility] [address] [place], [place] [address]Zd. Sarah Napoles Cholesterol [Mass/Vol] 160 mg/dL Normal <=200 [facility] Comment on above: Performed By: #### L IPID, CMP, URIC ####[facility] [address]rsfaicm[address] [place] [phone]. Sarah Napoles Cholesterol in HDL [Mass/Vol] 62 mg/dL Critically high 40-60 [facility] Comment on above: Performed By: #### L IPID, CMP, URIC ####[facility] [address] [place] [phone]. Sarah Napoles Cholesterol in LDL [Mass/Vol] 75.2 mg/dL Normal [facility] Comment on above: Performed By: #### L IPID, CMP, URIC ####[facility] [address] [place], [place] [address]Ld. Sarah Napoles Cholesterol.total/Ch olesterol in HDL [Mass ratio] 2.6 {ratio} Normal [facility] Comment on above: Performed By: #### L IPID, CMP, URIC ####[facility] [address] [place], [place] [address]Qr. Sarah Napoles HDL NORMAL > or = 60 mg/dl - LO W CARDIOVASCULAR RISK <40 mg/dl - HIGH CARDIOVASCULAR RISK Normal [facility] Comment on above: Performed By: #### L IPID, CMP, URIC ####[facility] [address] [place] [phone]. Sarah Napoles LDL CALC NORMAL SEE BELOW Normal [facility] Comment on above: Result Comment: <100 mg/dl OPTIMAL 100 - 129 mg/dl NEAR OR ABOVE OPTIMAL 130 - 159 mg/dl BORDERLINE HIGH 160 - 189 mg/dl HIGH >190 mg/dl VERY HIGH Performed By: #### L IPID, CMP, URIC ####[facility] [address] [place], [place] [address]MgDr. Sarah Napoles Triglyceride [Mass/Vol] 114 mg/dL Normal <=150 [facility] Comment on above: Performed By: #### L IPID, CMP, URIC ####[facility] [address] [place], [place] [address]HqDr. Sarah Napoles VLDL CALC 22.8 mg/dL Normal [facility] Comment on above: Performed By: #### L IPID, CMP, URIC ####[facility] [address] [place], [place] [address]FrDr. Sarah Napoles PROF 14(COMP METB)on 023 Albumin [Mass/Vol] 4.3 g/dL Normal 3.4-5.0 [facility] Comment on above: Performed By: #### L IPID, CMP, URIC #### [facility] [address] [place] [address] [address] Sarah Napoles Albumin/Globulin [Mass ratio] 1.3 {ratio} Normal [facility] Comment on above: Performed By: #### L IPID, CMP, URIC #### [facility] [address] [place] [address] [address] Sarah Napoles ALP [Catalytic activity/Vol] 71 U/L Normal 46-116 [facility] Comment on above: Performed By: #### L IPID, CMP, URIC #### [facility] [address] [place] [address] [address] Sarah Napoles ALT [Catalytic activity/Vol] 25 U/L Normal 14-59 [facility] Comment on above: Performed By: #### L IPID, CMP, URIC #### [facility] [address] [place] [address] [address] Sarah Napoles Anion gap [Moles/Vol] 11.8 mmol/L Normal [facility] Comment on above: Performed By: #### L IPID, CMP, URIC #### [facility] [address] [place] [address] [address] Sarah Napoles AST [Catalytic activity/Vol] 22 U/L Normal 15-37 [facility] Comment on above: Performed By: #### L IPID, CMP, URIC #### [facility] [address] [place] [address] [address] Sarah Napoles Bilirubin [Mass/Vol] 0.3 mg/dL Normal 0.2-1.0 [facility] Comment on above: Performed By: #### L IPID, CMP, URIC #### [facility] [address] [place] [address] Dr. Sarah Napoles Calcium [Mass/Vol] 9.8 mg/dL Normal 8.5-10.1 [facility] Comment on above: Performed By: #### L IPID, CMP, URIC #### [facility] [address] [place] [address] Dr. Sarah Napoles Chloride [Moles/Vol] 101 mmol/L Normal 98-107 [facility] Comment on above: Performed By: #### L IPID, CMP, URIC #### [facility] [address] [place] [address] Dr. Sarah Napoles CO2 [Moles/Vol] 29.5 mmol/L Normal 21.0-32.0 [facility] Comment on above: Performed By: #### L IPID, CMP, URIC #### [facility] [address] [place] [address] Dr. Sarah Napoles Creatinine [Mass/Vol] 0.63 mg/dL Normal 0.55-1.02 [facility] Comment on above: Performed By: #### L IPID, CMP, URIC #### [facility] [address] [place] [address] Dr. Sarah Napoles EGFR-AF CITIZEN [place] >60 Normal >=60 [facility] Comment on above: Performed By: #### L IPID, CMP, URIC #### [facility] [address] [place] [address] Dr. Sarah Napoles EGFR-NON AF CITIZEN [place] >60 Normal >=60 [facility] Comment on above: Performed By: #### L IPID, CMP, URIC #### [facility] [address] [place] [address] [address] Sarah Napoles Globulin (S) [Mass/Vol] 3.4 g/dL Normal [facility] Comment on above: Performed By: #### L IPID, CMP, URIC #### [facility] [address] [place] [address] [address] Sarah Napoles Glucose [Mass/Vol] 92 mg/dL Normal 74-106 [facility] Comment on above: Performed By: #### L IPID, CMP, URIC #### [facility] [address] [place] [address] [address] Sarah Napoles Potassium [Moles/Vol] 4.3 mmol/L Normal 3.5-5.1 [facility] Comment on above: Performed By: #### L IPID, CMP, URIC #### [facility] [address] [place] [address] Dr. Sarah Napoles Protein [Mass/Vol] 7.7 g/dL Normal 6.4-8.2 [facility] Comment on above: Performed By: #### L IPID, CMP, URIC #### [facility] [address] [place] [address] Dr. Sarah Napoles Sodium [Moles/Vol] 138 mmol/L Normal 136-145 [facility] Comment on above: Performed By: #### L IPID, CMP, URIC #### [facility] [address] [place] [address] Dr. Sarah Napoles Urea nitrogen [Mass/Vol] 25.0 mg/dL Critically high 7.0-18.0 [facility] Comment on above: Performed By: #### L IPID, CMP, URIC #### [facility] [address] [place] [address] Dr. Sarah Napoles Urea nitrogen/Creatinine [Mass ratio] 39.7 mg/mg Normal [facility] Comment on above: Performed By: #### L IPID, CMP, URIC #### [facility] [address] [place], [place] [address] Dr. Sarah Napoles URIC ACID SERUMon 12-15-2022 Urate [Mass/Vol] 3.7 mg/dL Normal 2.6-6.0 [facility] Comment on above: Performed By: #### L IPID, CMP, URIC ####[facility] [address] [place], [place] [address]Dr. Sarah Napoles CT LUNG CANCER SCREENINGon 1 [...] JOVANNI MILLAN Date: 2022-07-21 22:18 Normal [facility] CBC AUTO DIFFon 06-16-2022 BASO # 0.1 103/ul Normal 0.0-0.1 [facility] Comment on above: Performed By: #### C BC ####[facility] [address] [place] [id number]. Sarah Napoles Basophils/100 WBC (Bld) 0.9 % Normal 0.2-2.0 [facility] Comment on above: Performed By: #### C BC ####[facility] [address] [place], [place] [address]KtDr. Sarah Napoles EO # 0.2 103/ul Normal 0.0-0.7 [facility] Comment on above: Performed By: #### C BC ####[facility] [address] [place] [address]Dr. Sarah Napoles Eosinophils/100 WBC (Bld) 2.5 % Normal 0.9-7.0 [facility] Comment on above: Performed By: #### C BC ####[facility] [address] [place], [place] [address]Dr. Sarah Napoles Erythrocyte distribution width (RBC) [Ratio] 13.4 % Normal 11.0-15.0 [facility] Comment on above: Performed By: #### C BC ####[facility] [address] [place], [place] [address]Dr. Sarah Napoles Hematocrit (Bld) [Volume fraction] 33.3 % Critically low 36.0-48.0 [facility] Comment on above: Performed By: #### C BC ####[facility] [address] [place], [place] [address]Dr. Sarah Napoles Hemoglobin (Bld) [Mass/Vol] 10.8 g/dL Critically low 12.0-16.0 [facility] Comment on above: Performed By: #### C BC ####[facility] [address] [place], [place] [address]Dr. Sarah Napoles IG # 0.03 10e3/ul Normal 0.00-0.03 [facility] Comment on above: Performed By: #### C BC ####[facility] [address] [place], [place] [address]Dr. Sarah Napoles IG % 0.4 % Normal 0.0-0.5 [facility] Comment on above: Performed By: #### C BC ####[facility] [address] [place], [place] [address]Dr. Sarah Napoles LYMPH # 1.7 103/ul Normal 1.2-3.8 [facility] Comment on above: Performed By: #### C BC ####[facility] [address]onx[address] [place], [place] [address]Dr. Sarah Napoles Lymphocytes/100 WBC (Bld) 20.4 % Critically low 20.5-60.0 [facility] Comment on above: Performed By: #### C BC ####[facility] [address] [place] [address]Dr. Sarah Napoles MANUAL DIFF REQ NO Normal [facility] Comment on above: Performed By: #### C BC ####[facility] [address]ai[address] [place] [address]Dr. Sarah Napoles MCH (RBC) [Entitic mass] 32.0 pg Normal 26.7-34.0 [facility] Comment on above: Performed By: #### C BC ####[facility] Gr[address]qec[address] [place], [place] [address]Dr. Sarah Napoles MCHC (RBC) [Mass/Vol] 32.4 g/dL Normal 29.9-35.2 [facility] Comment on above: Performed By: #### C BC ####[facility] [address] [place], [place] [address]Dr. Sarah Napoles MCV (RBC) [Entitic vol] 98.8 fL Normal 81.0-99.0 [facility] Comment on above: Performed By: #### C BC ####[facility] [address] [place], [place] [address]DrJudy Napoles MONO # 0.9 103/ul Critically high 0.3-0.8 [facility] Comment on above: Performed By: #### C BC ####[facility] [address] [place], [place] [address]Dr. Sarah Napoles Monocytes/100 WBC (Bld) 11.0 % Normal 1.7-12.0 [facility] Comment on above: Performed By: #### C BC ####[facility] [address] [place], [place] [address]DrJudy Napoles NEUT # 5.3 103/ul Normal 1.4-6.5 [facility] Comment on above: Performed By: #### C BC ####[facility] Krxs[address] [place], [place] [address]DrJudy Napoles Neutrophils/100 WBC (Bld) 64.8 % Normal 43.0-75.0 [facility] Comment on above: Performed By: #### C BC ####[facility] [address] [place] [address]Dr. Sarah Dony Platelet mean volume (Bld) [Entitic vol] 10.8 fL Normal 9.5-13.5 [facility] Comment on above: Performed By: #### C BC ####[facility] [address]ef[address] [place] [address]Dr. Charlinecassie Dony PLT 262 103/ul Normal 150-450 [facility] Comment on above: Performed By: #### C BC ####[facility] [address]su[address]puz[address] [place] [address]Dr. Sarah Napoles RBC 3.37 106/ul Critically low 4.20-5.40 [facility] Comment on above: Performed By: #### C BC ####[facility] [address] [place], [place] [address]Dr. Sarah Napoles WBC 8.1 103/ul Normal 4.0-11.0 [facility] Comment on above: Performed By: #### C BC ####[facility] [address] [place], [place] [address]DrJudy Napoles GLYCOHEMOGLOBIN A1Con 2021 ADA RECOMMENDATION SEE BELOW Normal [facility] Comment on above: Result Comment: ADA RECOMMENDED LIMIT 4.0 - 6.0 ADA THERAPEUTIC TARGET < 7.0 ACTION SUGGESTED > 7.0 Performed By: #### A 1C ####[facility] [address] [place], [place] [address]DrJudy Napoles Glucose [Mass/Vol] 108 mg/dL Normal [facility] Comment on above: Performed By: #### A 1C ####[facility] [address] [place], [place] [address]DrJudy Napoles HbA1c (Bld) [Mass fraction] 5.4 % Normal 4.5-6.2 [facility] Comment on above: Performed By: #### A 1C ####[facility] [address]az[address] [place], [place] [address]Dr. Sarah Napoles LIPID PROFILEon 06-16-2022 CHOL-HDL RATIO NORM SEE BELOW Normal [facility] Comment on above: Result Comment: 3.3 - 4.4 LOW RISK 4.4 - 7.1 AVERAGE RISK 7.1 - 11.0 MODERATE RISK >11.0 HIGH RISK Performed By: #### C MP, LIPID #### [facility] [address] [place], [place] [address] Dr. Sarah Napoles Cholesterol [Mass/Vol] 147 mg/dL Normal <=200 [facility] Comment on above: Performed By: #### C MP, LIPID #### [facility] [address] [place], [place] [address] Dr. Sarah Napoles Cholesterol in HDL [Mass/Vol] 58 mg/dL Normal 40-60 [facility] Comment on above: Performed By: #### C MP, LIPID #### [facility] [address] [place], [place] [address] Dr. Sarah Napoles Cholesterol in LDL [Mass/Vol] 68.0 mg/dL Normal [facility] Comment on above: Performed By: #### C MP, LIPID #### [facility] [address] [place], [place] [address] Dr. Sarah Napoles Cholesterol.total/Ch olesterol in HDL [Mass ratio] 2.5 {ratio} Normal [facility] Comment on above: Performed By: #### C MP, LIPID #### [facility] [address] [place], [place] [address] Dr. Sarah Napoles HDL NORMAL > or = 60 mg/dl - LO W CARDIOVASCULAR RISK <40 mg/dl - HIGH CARDIOVASCULAR RISK Normal [facility] Comment on above: Performed By: #### C MP, LIPID #### [facility] [address] [place], [place] [address] Dr. Sarah Napoles LDL CALC NORMAL SEE BELOW Normal [facility] Comment on above: Result Comment: <100 mg/dl OPTIMAL 100 - 129 mg/dl NEAR OR ABOVE OPTIMAL 130 - 159 mg/dl BORDERLINE HIGH 160 - 189 mg/dl HIGH >190 mg/dl VERY HIGH Performed By: #### C MP, LIPID #### [facility] [address] [place] [address] Dr. Sarah Napoles Triglyceride [Mass/Vol] 105 mg/dL Normal <=150 [facility] Comment on above: Performed By: #### C MP, LIPID #### [facility] [address] [place] [address] Dr. Sarah Napoles VLDL CALC 21.0 mg/dL Normal [facility] Comment on above: Performed By: #### C MP, LIPID #### [facility] [address] [place] [address] Dr. Sarah Napoles PROF 14(COMP METB)on 022 Albumin [Mass/Vol] 4.0 g/dL Normal 3.4-5.0 [facility] Comment on above: Performed By: #### C MP, LIPID #### [facility] [address] [place] [address] Dr. Sarah Napoles Albumin/Globulin [Mass ratio] 1.2 {ratio} Normal [facility] Comment on above: Performed By: #### C MP, LIPID #### [facility] [address] [place] [address] Dr. Sarah Napoles ALP [Catalytic activity/Vol] 53 U/L Normal 46-116 [facility] Comment on above: Performed By: #### C MP, LIPID #### [facility] [address] [place] [address] Dr. Sarah Napoles ALT [Catalytic activity/Vol] 32 U/L Normal 14-59 [facility] Comment on above: Performed By: #### C MP, LIPID #### [facility] [address] [place] [address] Dr. Sarah Napoles Anion gap [Moles/Vol] 8.0 mmol/L Normal [facility] Comment on above: Performed By: #### C MP, LIPID #### [facility] [address] [place] [address] Dr. Sarah Napoles AST [Catalytic activity/Vol] 23 U/L Normal 15-37 [facility] Comment on above: Performed By: #### C MP, LIPID #### [facility] [address] [place] [address] Dr. Sarah Napoles Bilirubin [Mass/Vol] 0.4 mg/dL Normal 0.2-1.0 [facility] Comment on above: Performed By: #### C MP, LIPID #### [facility] [address] [place] [address] Dr. Sarah Napoles Calcium [Mass/Vol] 9.4 mg/dL Normal 8.5-10.1 [facility] Comment on above: Performed By: #### C MP, LIPID #### [facility] [address] [place] [address] Dr. Sarah Napoles Chloride [Moles/Vol] 100 mmol/L Normal 98-107 [facility] Comment on above: Performed By: #### C MP, LIPID #### [facility] [address] [place] [address] Dr. Sarah Napoles CO2 [Moles/Vol] 30.8 mmol/L Normal 21.0-32.0 [facility] Comment on above: Performed By: #### C MP, LIPID #### [facility] [address] [place] [address] Dr. Sarah Napoles Creatinine [Mass/Vol] 0.68 mg/dL Normal 0.55-1.02 [facility] Comment on above: Performed By: #### C MP, LIPID #### [facility] [address] [place] [address] Dr. Sarah Napoles EGFR-AF CITIZEN OF [place] >60 Normal >=60 [facility] Comment on above: Performed By: #### C MP, LIPID #### [facility] [address] [place] [address] Dr. Sarah Napoles EGFR-NON AF CITIZEN OF [place] >60 Normal >=60 [facility] Comment on above: Performed By: #### C MP, LIPID #### [facility] [address] [place] [address] Dr. Sarah Napoles Globulin (S) [Mass/Vol] 3.3 g/dL Normal [facility] Comment on above: Performed By: #### C MP, LIPID #### [facility] [address] [place] [address] Dr. Sarah Napoles Glucose [Mass/Vol] 90 mg/dL Normal 74-106 [facility] Comment on above: Performed By: #### C MP, LIPID #### [facility] [address] [place] [address] [address] Sarah Napoles Potassium [Moles/Vol] 3.8 mmol/L Normal 3.5-5.1 [facility] Comment on above: Performed By: #### C MP, LIPID #### [facility] [address] [place] [address] Dr. Sarah Napoles Protein [Mass/Vol] 7.3 g/dL Normal 6.4-8.2 [facility] Comment on above: Performed By: #### C MP, LIPID #### [facility] [address] [place] [address] [address] Sarah Napoles Sodium [Moles/Vol] 135 mmol/L Critically low 136-145 [facility] Comment on above: Performed By: #### C MP, LIPID #### [facility] [address] [place] [address] [address] Sarah Napoles Urea nitrogen [Mass/Vol] 13.0 mg/dL Normal 7.0-18.0 [facility] Comment on above: Performed By: #### C MP, LIPID #### [facility] [address] [place] [address] Dr. Sarah Napoles Urea nitrogen/Creatinine [Mass ratio] 19.1 mg/mg Normal [facility] Comment on above: Performed By: #### C MP, LIPID #### [facility] [address] [place] [address] [address] Sarah Napoles POC GLUCOSE LABon 01-03-2021 Glucose [Mass/Vol] 119 mg/dL High 70-100 [facility] Comment on above: Performed By: #### 8 [id number] #### [facility] [address] [facility] [place] [address], [facility] Glucose [Mass/Vol] 145 mg/dL High 70-100 [facility] Comment on above: Performed By: #### 8 [id number] #### [facility] [address] [place] [address], [place] Glucose [Mass/Vol] 93 mg/dL Normal 70-100 The [facility] Comment on above: Performed By: #### 8 [id number] #### [facility] [address] [place] [address], [place] Glucose [Mass/Vol] 99 mg/dL Normal 70-100 [facility] Comment on above: Performed By: #### 8 [id number] #### [facility] [address] [place] [address], [place] POC GLUCOSE LABon 01-02-2021 Glucose [Mass/Vol] 101 mg/dL High 70-100 The [facility] Comment on above: Performed By: #### 8 [id number] #### [facility] [address] [place] [address], [place] Glucose [Mass/Vol] 127 mg/dL High 70-100 The [facility] Comment on above: Performed By: #### 8 [id number] #### [facility] [address] [place] [address], [place] Glucose [Mass/Vol] 110 mg/dL High 70-100 The [facility] Comment on above: Performed By: #### 8 [id number] #### [facility] [address] [place] [address], [place] BASIC METABOLIC PANELon -3 Calcium [Mass/Vol] 8.4 mg/dL Low 8.6-10.3 The [facility] Comment on above: Order Comment: No: D o not add to previous draw Performed By: #### 8 [id number] #### [facility] [address] [place] [address], [place] Chloride [Moles/Vol] 106 mmol/L Normal 98-107 [facility] Comment on above: Order Comment: No: D o not add to previous draw Performed By: #### 8 [id number] #### [facility] [address] [place] [address], [place] CO2 [Moles/Vol] 29 mmol/L Normal 21-31 The [facility] Comment on above: Order Comment: No: D o not add to previous draw Performed By: #### 8 [id number] #### [facility] [address] [place] [address], [place] Creatinine [Mass/Vol] 0.50 mg/dL Low 0.60-1.20 [facility] Comment on above: Order Comment: No: D o not add to previous draw Performed By: #### 8 [id number] #### [facility] [address] [place] [address], [place] GFR/1.73 sq M.predicted among blacks MDRD (S/P/Bld) [Vol rate/Area] mL/min/{1.73_m2} Normal >60 [facility] Comment on above: Order Comment: No: D o not add to previous draw Performed By: #### 8 [id number] #### [facility] [address] [place] [address], [place] GFR/1.73 sq M.predicted among non-blacks MDRD (S/P/Bld) [Vol rate/Area] mL/min/{1.73_m2} Normal >60 [facility] Comment on above: Order Comment: No: D o not add to previous draw Performed By: #### 8 [id number] #### [facility] [address] [place] [address], [place] Glucose [Mass/Vol] 88 mg/dL Normal 70-100 [facility] Comment on above: Order Comment: No: D o not add to previous draw Performed By: #### 8 [id number] #### [facility] [address] [place] [address], [place] Potassium [Moles/Vol] 3.3 mmol/L Low 3.5-5.1 [facility] Comment on above: Order Comment: No: D o not add to previous draw Performed By: #### 8 [id number] #### [facility] [address] [place] [address], [facility] Sodium [Moles/Vol] 141 mmol/L Normal 136-145 The [facility] Comment on above: Order Comment: No: D o not add to previous draw Performed By: #### 8 [id number] #### [facility] [address] [place] [address], [facility] Urea nitrogen [Mass/Vol] 10 mg/dL Normal 7-25 [facility] Comment on above: Order Comment: No: D o not add to previous draw Performed By: #### 8 [id number] #### [facility] [address] [place] [address], [facility] CBC W/DIFFon 01-01-2021 ABS IMM GRANS 0.1 10*3/uL Normal 0.0-0.2 The [facility] Comment on above: Order Comment: No: D o not add to previous draw Performed By: #### 5 0103 #### [facility] [address] [facility] [address], [facility] ABS NEUTROPHILS 10.1 10*3/uL High 1.6-7.6 The [facility] Comment on above: Order Comment: No: D o not add to previous draw Performed By: #### 5 0103 #### [facility] [address] [place] [address], [facility] Basophils (Bld) [#/Vol] 0.0 10*3/uL Normal 0.0-0.2 The [facility] Comment on above: Order Comment: No: D o not add to previous draw Performed By: #### 5 0103 #### [facility] [address] [place] [id number], [facility] Basophils/100 WBC (Bld) 0.2 % Normal 0.0-1.0 [facility] Comment on above: Order Comment: No: D o not add to previous draw Performed By: #### 5 0103 #### [facility] [address] [place] [address], [facility] Eosinophils (Bld) [#/Vol] 0.0 10*3/uL Normal 0.0-0.5 [facility] Comment on above: Order Comment: No: D o not add to previous draw Performed By: #### 5 0103 #### [facility] [address] [place] [address], [facility] Eosinophils/100 WBC (Bld) 0.1 % Normal 0.0-6.0 [facility] Comment on above: Order Comment: No: D o not add to previous draw Performed By: #### 5 0103 #### [facility] [address] [place] [address], [facility] Erythrocyte distribution width (RBC) [Ratio] 13.1 % Normal 11.5-15.0 [facility] Comment on above: Order Comment: No: D o not add to previous draw Performed By: #### 5 0103 #### [facility] [address] [place] [address], [facility] Hematocrit (Bld) [Volume fraction] 27.7 % Low 36.0-45.0 [facility] Comment on above: Order Comment: No: D o not add to previous draw Performed By: #### 5 0103 #### [facility] [address] [place] [address], [facility] Hemoglobin (Bld) [Mass/Vol] 9.2 g/dL Low 12.0-15.0 The [facility] Comment on above: Order Comment: No: D o not add to previous draw Result Comment: RESU LTS CHECKED Performed By: #### 5 0103 #### [facility] [address] [place] [address], [facility] IMMATURE GRANS 0.4 % Normal 0.0-1.0 [facility] Comment on above: Order Comment: No: D o not add to previous draw Performed By: #### 5 0103 #### [facility] [address] [place] [address], [facility] Lymphocytes (Bld) [#/Vol] 1.8 10*3/uL Normal 1.2-4.0 The [facility] Comment on above: Order Comment: No: D o not add to previous draw Performed By: #### 5 0103 #### [facility] [address] [place] [address], [facility] Lymphocytes/100 WBC (Bld) 13.6 % Low 20.0-45.0 The [facility] Comment on above: Order Comment: No: D o not add to previous draw Performed By: #### 5 0103 #### [facility] [address] [facility] [place] [address], [facility] MCH (RBC) [Entitic mass] 32.4 pg Normal 27.0-33.0 The [facility] Comment on above: Order Comment: No: D o not add to previous draw Performed By: #### 5 0103 #### [facility] [address] [place] [address], [facility] MCHC (RBC) [Mass/Vol] 33.2 g/dL Normal 32.0-35.0 The [facility] Comment on above: Order Comment: No: D o not add to previous draw Performed By: #### 5 0103 #### [facility] [address] [place] [id number], [facility] MCV (RBC) [Entitic vol] 97.5 fL Normal 82.0-98.0 The [facility] Comment on above: Order Comment: No: D o not add to previous draw Performed By: #### 5 0103 #### [facility] [address] [place] [id number], [facility] Monocytes (Bld) [#/Vol] 1.4 10*3/uL High 0.1-1.0 The [facility] [place] [facility] Comment on above: Order Comment: No: D o not add to previous draw Performed By: #### 5 0103 #### [facility] [address] [place] [address], [facility] MONOS 10.1 % Normal 5.0-12.0 The [facility] Comment on above: Order Comment: No: D o not add to previous draw Performed By: #### 5 0103 #### [facility] [address] [place] [address], [place] Neutrophils/100 WBC (Bld) 75.6 % High 40.0-72.0 The [facility] Comment on above: Order Comment: No: D o not add to previous draw Performed By: #### 5 0103 #### [facility] [address] [place] [address], [facility] Nucleated RBC/100 WBC (Bld) [Ratio] 0 % Normal 0-0 The [facility] Comment on above: Order Comment: No: D o not add to previous draw Performed By: #### 5 0103 #### [facility] [address] [place] [address], [place] PLAT CNT 237 10*3/uL Normal 150-400 The [facility] Comment on above: Order Comment: No: D o not add to previous draw Performed By: #### 5 0103 #### [facility] [address] [place] [address], [facility] RBC (Bld) [#/Vol] 2.84 10*6/uL Low 3.80-5.00 The [facility] Comment on above: Order Comment: No: D o not add to previous draw Performed By: #### 5 0103 #### [facility] [address] [place] [address], [place] WBC (Bld) [#/Vol] 13.43 10*3/uL High 4.00-10.60 The [facility] Comment on above: Order Comment: No: D o not add to previous draw Performed By: #### 5 0103 #### [address] [place] [address], [facility] POC GLUCOSE LABon 01-01-2021 Glucose [Mass/Vol] 115 mg/dL High 70-100 [facility] Comment on above: Performed By: #### 8 [id number] #### [facility] [address] [facility] [place] [address], [place] Glucose [Mass/Vol] 110 mg/dL High 70-100 [facility] Comment on above: Performed By: #### 8 5499 #### [address] [place] [address], [place] Glucose [Mass/Vol] 111 mg/dL High 70-100 [facility] Comment on above: Performed By: #### 8 5499 #### [address] [place] [address], [place] Glucose [Mass/Vol] 102 mg/dL High 70-100 [facility] Comment on above: Performed By: #### 8 5499 #### [address] [place] [address], [facility] HIP RIGHT 1 OR 2 VWS WITH PE LVISon 12-31-2020 HIP RIGHT 1 OR 2 VWS WITH PELVIS [facility] Department of Radiology [address] [place] [id number] Patient Name: BLANCA ENRIQUEZ : 1960 [...] reports Electronically signed: Panda Smith. Transcribed by: [email or web address], User Resident: SCHUYLER RODRIGUES Electronically Signed by: PANDA SMITH @ 12/31/2020 04:29 PM I personally read this/these film(s) with this resident Normal [facility] Comment on above: Order Comment: RIGHT ANTERIOR TOTAL HIP REPLACEMENT Operative Reporton Operative Report MR#: [id number] I [facility] Pt. Name: Blanca Enriquez Room #: [id number] Discharge Date: Birthdate: 1960 OPERATIVE REPORT DATE [...] right hip pain despite nonoperative measures. Has [id number] osteoarthritis of the right hip with subchondral [...] Roberts M.D. Date Trans: 12/31/2020 09:28 P/mmo [id number] Normal [facility] POC GLUCOSE LABon 12-31-2020 Glucose [Mass/Vol] 167 mg/dL High 70-100 The [facility] Comment on above: Performed By: #### 8 [id number] #### [facility] [address] [facility] [place] [address], [place] Glucose [Mass/Vol] 162 mg/dL High 70-100 The [facility] Comment on above: Performed By: #### 8 [id number] #### [facility] [address] [place] [address], [place] Glucose [Mass/Vol] 168 mg/dL High 70-100 The [facility] Comment on above: Performed By: #### 8 5499 #### [facility] [address] [place] [address], [facility] Glucose [Mass/Vol] 104 mg/dL High 70-100 [facility] Comment on above: Performed By: #### 8 5499 #### [address] [address] PORTABLE HIP RIGHT 1 OR 2 VW S WITH PELVISon 12-31-2020 PORTABLE HIP RIGHT 1 OR 2 VWS WITH PELVIS [facility] Department of Radiology [address] [place] [id number] Patient Name: BLANCA ENRIQUEZ : 1960 [...] fracture Electronically signed: Panda Smith. Transcribed by: [email or web address], User Resident: Electronically Signed by: PANDA SMITH @ 12/31/2020 01:05 PM Normal [facility] Comment on above: Order Comment: Hardw are Evaluation, PACU *MRSA/MSSA DNA NASALon 12-10 *MRSA/MSSA DNA NASAL Clinical Report: (D ) Specimen: NASAL SWAB Collected: 12/10/2020 13:55 Status: Final Last Updated: 12/11/2020 15:48 MSSA DNA (Final) Negative MRSA DNA (Final) Negative Normal [facility] Comment on above: Performed By: #### 8 [id number] #### [facility] [address] [place] [address], [facility] CBC W/DIFFon 12-10-2020 ABS IMM GRANS 0.0 10*3/uL Normal 0.0-0.2 The [facility] Comment on above: Performed By: #### 8 [id number] #### [facility] [address] [place] [address], [facility] ABS NEUTROPHILS 7.7 10*3/uL High 1.6-7.6 The [facility] Comment on above: Performed By: #### 8 [id number] #### [facility] [address] [facility] [place] [address], [facility] Basophils (Bld) [#/Vol] 0.1 10*3/uL Normal 0.0-0.2 The [facility] Comment on above: Performed By: #### 8 [id number] #### [facility] [address] [facility] [place] [address], [facility] Basophils/100 WBC (Bld) 0.6 % Normal 0.0-1.0 The [facility] Comment on above: Performed By: #### 8 [id number] #### [facility] [address] [place] [address], [facility] Eosinophils (Bld) [#/Vol] 0.1 10*3/uL Normal 0.0-0.5 The [facility] Comment on above: Performed By: #### 8 [id number] #### [facility] [address] [place] [address], [facility] Eosinophils/100 WBC (Bld) 1.0 % Normal 0.0-6.0 The [facility] Comment on above: Performed By: #### 8 [id number] #### [facility] [address] [place] [address], [facility] Erythrocyte distribution width (RBC) [Ratio] 13.0 % Normal 11.5-15.0 The [facility] Comment on above: Performed By: #### 8 [id number] #### [facility] [address] [facility] [place] [address], [facility] Hematocrit (Bld) [Volume fraction] 36.2 % Normal 36.0-45.0 [facility] Comment on above: Performed By: #### 8 [id number] #### [facility] [address] [facility] [place] [address], [facility] Hemoglobin (Bld) [Mass/Vol] 11.9 g/dL Low 12.0-15.0 The [facility] Comment on above: Performed By: #### 8 [id number] #### [facility] [address] [place] [address], [facility] IMMATURE GRANS 0.3 % Normal 0.0-1.0 The [facility] Comment on above: Performed By: #### 8 [id number] #### [facility] [address] [place] [address], [facility] Lymphocytes (Bld) [#/Vol] 1.5 10*3/uL Normal 1.2-4.0 The [facility] Comment on above: Performed By: #### 8 [id number] #### [facility] [address] [place] [address], [facility] Lymphocytes/100 WBC (Bld) 15.1 % Low 20.0-45.0 [facility] Comment on above: Performed By: #### 8 [id number] #### [facility] [address] [place] [address], [facility] MCH (RBC) [Entitic mass] 31.9 pg Normal 27.0-33.0 [facility] Comment on above: Performed By: #### 8 [id number] #### [facility] [address] [facility] [place] [address], [facility] MCHC (RBC) [Mass/Vol] 32.9 g/dL Normal 32.0-35.0 [facility] Comment on above: Performed By: #### 8 [id number] #### [facility] [address] [place] [address], [facility] MCV (RBC) [Entitic vol] 97.1 fL Normal 82.0-98.0 [facility] Comment on above: Performed By: #### 8 [id number] #### [facility] [address] [place] [address], [facility] Monocytes (Bld) [#/Vol] 0.7 10*3/uL Normal 0.1-1.0 [facility] Comment on above: Performed By: #### 8 [id number] #### [facility] [address] [place] [address], [facility] MONOS 7.3 % Normal 5.0-12.0 [facility] Comment on above: Performed By: #### 8 [id number] #### [facility] [address] [place] [address], [facility] Neutrophils/100 WBC (Bld) 75.7 % High 40.0-72.0 [facility] Comment on above: Performed By: #### 8 [id number] #### [facility] [address] [place] [address], [facility] Nucleated RBC/100 WBC (Bld) [Ratio] 0 % Normal 0-0 [facility] Comment on above: Performed By: #### 8 [id number] #### [facility] [address] [address], [facility] PLAT CNT 290 10*3/uL Normal 150-400 [facility] Comment on above: Performed By: #### 8 [id number] #### [facility] [address] [facility] [place] [address], [facility] RBC (Bld) [#/Vol] 3.73 10*6/uL Low 3.80-5.00 The [facility] Comment on above: Performed By: #### 8 [id number] #### [facility] [address] [facility] [place] [address], [facility] WBC (Bld) [#/Vol] 10.11 10*3/uL Normal 4.00-10.60 [facility] Comment on above: Performed By: #### 8 [id number] #### [facility] [address] [place] [address], [facility] HEMOGLOBIN A1Con 12-10-2020 Glucose [Moles/Vol] 108 mmol/L Normal The [facility] Comment on above: Performed By: #### 3 1791 #### [facility] [address] [facility] [place] [address], [facility] HbA1c (Bld) [Mass fraction] 5.4 % Normal 4.0-6.0 [facility] Comment on above: Performed By: #### 3 1791 #### [facility] [address] [facility] [place] [address], [facility] HIP RIGHT 1 OR 2 VWS WITH PE LVISon 11-22-2020 HIP RIGHT 1 OR 2 VWS WITH PELVIS [facility] Department of Radiology [address] [place] [phone] Patient Name: BLANCA ENRIQUEZ : 1960 Sex: [...] exam. Electronically signed: Rodney Sutherland. Transcribed by: [email or web address], User Resident: Electronically Signed by: RODNEY SUTHERLAND @ 11/22/2020 03:43 PM Normal [facility] Comment on above: Order Comment: Evalu ate [...] procedure Shaikh Reyes [place] Work Phone: [facility] Start: 06-29-2023 End: 06-30-2023 ambulatory Chikis May MD Facility: [facility] Start: 06-22-2023 End: 06-23-2023 ambulatory Chikis May [...] Start: 12-31-2020 End: 01-03-2021 ambulatory PHYSICIAN UNKNOWN Facility:[facility] Procedures Date Procedure Procedure Detail Performing Clinician [...] Visit [facility] [address] [place] [phone] Shaikh Chambers MD [address] [place] [id number] [facility] Start: 06-05-2023 Influenza vaccination [...] Payer Unknown 2021 Medicare ANTH MEDICARE ADVANTAGE REPLACED BY [facility] MEDICARE ADVANTAGE [id number] 2021-Present [address] [place] [address] [id number] 1961 Unknown [id number] 1960 Unknown [id number] 2.16.840.1.725366.3.579.2.647 1960 Unknown [id number] 2.16.840.1.321251.3.579.2.593 1960 Unknown [id number] 2.16.840.1.601643.3.579.2.593 1958 Unknown [id number] 2.16.840.1.607952.3.579.2.593 1958 Unknown [id number] 2.16.840.1.700645.3.579.2.593 1958 Unknown [id number] 2.16.840.1.903858.3.579.2.593 1958 Unknown [id number] 2.16.840.1.329967.3.579.2.593 1958 Unknown [id number] 2.16.840.1.296109.3.579.2.593 1958 Unknown [id number] 2.16.840.1.077535.3.579.2.593 1958 Unknown [id number] 2.16.840.1.850076.3.579.2.593 1958 Unknown [id number] 2.16.840.1.783677.3.579.2.196 1958 Unknown [id number] 2.16.840.1.703475.3.579.2.196 1958 Unknown [id number] 2.16.840.1.677724.3.579.2.196 1958 Unknown [id number] 2.16.840.1.040322.3.579.2.125 9 1960 Unknown [id number] 2.16.840.1.148118.3.579.2.125 9 1960 Unknown [id number] 2.16.840.1.491430.3.579.2.125 9 Social History Date Type Detail Facility Start: 09-08-2023 Tobacco smoking status GAIS Ex-smoke r [facility] End: 12-03-2020 History [...] to any clubs or organizations such as mosque groups, unions, fraternal or athletic groups, or [...] by: JOVANNI MILLAN Date: 2022-12-17 16:26 The [facility] Evaluation note Note Date & Type [...] section and content) DATE CREATED AUTHOR 02/27/2021 [facility] DATE CREATED AUTHOR AUTHOR'S ORGANIZ ATION 03/13/2023 [facility] DATE CREATED AUTHOR AUTHOR'S ORGANIZ ATION 12/11/2023 [facility] DATE CREATED AUTHOR AUTHOR'S ORGANIZ ATION 03/16/2024 [facility] [employer] Care Teams (unrecognized sec tion and content) 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 [facility] [place] [place] [facility]. provides no warranty or guarantee of the accuracy or completeness of information in this document.
[2024-05-02 08:47] VITALS: BP 115/72; PULSE 61; TEMP 36.1; O2SAT 97
[2024-05-02 09:40] VITALS: BP 148/91; PULSE 73; O2SAT 98
[2024-05-02 09:42] VITALS: BP 148/75; PULSE 70; O2SAT 93
[2024-05-02] MEDS: BUPIVACAINE HCL 0.25% PF 25 MG/10 ML VIAL INJ (09:44)
[2024-05-02] MEDS: LIDOCAINE HCL 2% 400 MG/20 ML MDV 3 ML INJ (09:44)
[2024-05-02] MEDS: IOHEXOL 240 MG/ML - 10 ML VIAL 24 MG INJ (09:45)
[2024-05-02] MEDS: TRIAMCINOLONE ACETONIDE 40 MG/ML VIAL INJ (09:45)
--- NOTE | 2024-05-02 09:46 | W.PM.PROCNOT ---
Date of procedure: 05/02/24 Pre-op diagnosis: Pain due to left shoulder osteoarthritis Post-op diagnosis: same as pre-op Procedure: Procedure: Left suprascapular and axillary nerve block Medications: Bupivacaine 0.25% 2cc, kenalog 40mg The patient was seen and examined in the preoperative holding area. Informed consent was obtained and placed on the chart.? The patient was brought to the medical procedure unit and placed in the prone position. A timeout was completed verifying correct patient, procedure site, positioning, plan, and special equipment.? Using aseptic technique, under direct fluoroscopic visualization, a 25-gauge 3-1/2 inch spinal needle was advanced to the superior portion of the left posterior osseous rim of the glenoid fossa, lateral and superior to the spinal glenoid notch.? 0.5 cc of the above solution was injected.? The needle was then redirected 3 mm inferiorly and another 0.5 cc of the above medication was injected.? This needle was then removed.? Using aseptic technique, under direct fluoroscopic visualization, another 25-gauge 3-1/2 inch spinal needle was advanced toward the most inferior and lateral border of the greater tubercle.? 0.5 cc of the above medication was administered.? The needle was then redirected 3 mm inferiorly.? 0.5 cc was administered in this region.? This needle was removed. ? The patient was taken to the postprocedural recovery area and monitored for an appropriate length of time before being found suitable for discharge in the accompaniment of a responsible adult. Anesthesia: Local Surgeon: Chikis May Pathology: none sent Condition: stable Disposition: no change
== END 2024-05-02 10:00 | disposition home or self-care (01) ==
LOC: SURGOUT 08:22
PROVIDERS: PCP Internal Medicine; Visit Provider Anesthesiology
DX: M19.012 Primary osteoarthritis, left shoulder (principal)
CPT/HCPCS: 64417; 64418; J0665; J3301; Q9966

== ENCOUNTER 2024-05-19 12:34 | Outpatient (OUT) | payer MEDICARE, SELFPAY ==
--- OUTSIDE RECORDS SUMMARY | 2024-05-19 12:46 | XMS_ITS | CCD ---
Author Organization [facility] Care Team Providers Care Display Department Manager Name Role Phone UNKNOWN, PHYSICIAN Primary Care Unavailable UNKNOWN, PHYSICIAN Referring Unavailable HERMINIO ROBERTS Admitting Unavailable HERMINIO ROBERTS Attending Unavailable HERMINIO ROBERTS Surgeon Unavailable NM Procedure Practitioner Unavailab SHAIKH Garcia H Consulting [...] CAITY, DR JOVANNI Ashraf Consulting Unavailable FAWWAD, WHITFEILD H Primary Care Unavailable WEST, DR MARIA [...] Attending Unavailable SHAIKH Gerson CHAMBERS Admitting Unavailable CAITY, DR JOVANNI Ashraf Consulting Unavailable SHAIKH Gerson CHAMBERS Primary Care Unavailable SHAIKH Gerson CHAMBERS Consulting Unavailable Shaikh Chambers MD Primary Care Provider [phone] SHAIKH CHAMBERS Attending Unavailable SHAIKH CHAMBERS Attending Unavailable SHAIKH CHAMBERS Attending Unavailable Lalo PALACIO, Chikis Henderson Attending Unavailable Ginoéitis , Andshukri Henderson Attending Unavailable Gichico PALACIO, Chikis Henderson Attending Unavailable Gichico PALACIO, Andshukri Henderson Attending Unavailable Allergies Allergy Classification Reported Allergen(s) Allergy Type Date of Onset Reaction(s) Facility Aspirin (1 source) Aspirin; Translations: [ASPIRIN] Drug Allergy 12-26-2020 [facility] Repository (1 source) Amino Acids Drug Allergy [facility] Repository (1 source) Aspirin Drug Allergy [facility] Repository (1 source) Aluminum aspirin Drug Allergy 04-30-2023 [facility] Medications Current Medications Medication Drug [...] 1000 mg oral capsule (1 source) Evening Shamrock Oil 1000 MG capsule as directed Orally [...] DR MARIA ANTONIA CONRAD M.D. Admission #: [id number] Family : Order #: [id number] CLICK HERE TO VIEW EXAM RADIOLOGY REPORT [...] Conrad MD on 03/03/2023 at 13:46 Normal [facility] VC EXT VENOUS RT LIMITEDon 0 03-03-2023 VC EXT VENOUS RT LIMITED Patient: BLANCA ENRIQUEZ Exam Date: 03/03/2023 : 1960 Gender:F Ordering : DR MARIA ANTONIA CONRAD M.D. Admission #: [id number] Family : Order #: [id number] CLICK HERE TO VIEW EXAM RADIOLOGY REPORT [...] thrombus OTHER: *Exam performed in accordance with AIUM practice guidelines- Peripheral venous ultrasound, December 29, 2009. 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 Admission #: [id number] Family : Order #: [id number] CLICK HERE TO VIEW EXAM RADIOLOGY REPORT [...] Millan M.D. on 02/25/2023 at 15:01 Normal [facility] VC CONSULT FOLLOWUPon 2022 VC CONSULT FOLLOWUP Patient: BLANCA ENRIQUEZ Exam Date: 02/09/2023 : 1960 Gender:F Ordering : DR MARIA ANTONIA CONRAD M.D. Admission #: [id number] Family : Order #: [id number] CLICK HERE TO VIEW EXAM RADIOLOGY REPORT [...] Millan M.D. on 02/09/2023 at 11:43 Normal [facility] VC EXT VENOUS LT LIMITEDon 0 02-09-2023 VC EXT VENOUS LT LIMITED Patient: BLANCA ENRIQUEZ Exam Date: 02/09/2023 : 1960 Gender:F Ordering : DR MARIA ANTONIA CONRAD M.D. Admission #: [id number] Family : Order #: [id number] CLICK HERE TO VIEW EXAM RADIOLOGY REPORT [...] Millan M.D. on 02/09/2023 at 11:35 Normal [facility] VC ENDOVENOUS ABL 1ST V LTon 02-02-2023 VC ENDOVENOUS ABL 1ST V LT Patient: BLANCA ENRIQUEZ Exam Date: 02/02/2023 : 1960 Gender:F Ordering : DR MARIA ANTONIA CONRAD M.D. Admission #: [id number] Family : Order #: [id number] CLICK HERE TO VIEW EXAM RADIOLOGY REPORT [...] Millan M.D. on 02/02/2023 at 14:17 Normal [facility] VC COMP CONSULTATIONon 01-08 VC COMP CONSULTATION Patient: BLANCA ENRIQUEZ Exam Date: 01/08/2023 : 1960 Gender:F Ordering : DR MARIA ANTONIA CONRAD M.D. Admission #: [id number] Family : Order #: [id number] CLICK HERE TO VIEW EXAM RADIOLOGY REPORT [...] saphenous, mild to moderate right small saphenous vzje-vd-ofkasxuy left anterior accessory saphenous vein venous insufficiency [...] Conrad MD on 01/08/2023 at 15:14 Normal [facility] VC VENOUS REFLUX SARITHA LMTon 0 01-08-2023 VC VENOUS REFLUX SARITHA LMT Patient: BLANCA ENRIQUEZ Exam Date: 01/08/2023 : 1960 Gender:F Ordering : DR MARIA ANTONIA CONRAD M.D. Admission #: [id number] Family : Order #: [id number] CLICK HERE TO VIEW EXAM RADIOLOGY REPORT [...] chronic thrombus visualized Compressibility: Normal Flow: Normal Nanoscience Technician: Dist/med calf 3.7 mm with 2.4s reflux. [...] Bilateral incompetent varicose veins 5. Left incompetent business development coordinator veins 6. Left suprapatellar fluid collection likely joint effusion and popliteal lesion likely a cyst Dictated by: Maria Antonia Conrad MD on 01/08/2023 at 13:50 Approved by: Maria Antonia Conrad MD on 01/08/2023 at 13:52 Normal [facility] XR KNEE SARITHA 4V or >on 2022 [...] by: JOVANNI MILLAN Date: 2022-12-17 16:24 Normal [facility] XR SHOULDER SARITHA 2V or >on [...] narrowing of the glenohumeral joints with likely mndt-my-ioaw contact. Degenerative osteophyte along the inferior articular [...] by: JOVANNI MILLAN Date: 2022-12-17 16:32 Normal [facility] CBC AUTO DIFFon 12-15-2022 BASO # 0.1 103/ul Normal 0.0-0.1 [facility] Comment on above: Performed By: #### C BC ####[facility] [address] [place], [place] [address]OzJudy Napoles Basophils/100 WBC (Bld) 0.8 % Normal 0.2-2.0 [facility] Comment on above: Performed By: #### C BC ####[facility] [address] [place], [place] [address]Dr. Sarah Napoles EO # 0.2 103/ul Normal 0.0-0.7 [facility] Comment on above: Performed By: #### C BC ####[facility] [address] [place], [place] [address]Dr. Sarah Napoles Eosinophils/100 WBC (Bld) 2.3 % Normal 0.9-7.0 [facility] Comment on above: Performed By: #### C BC ####[facility] [address] [place], [place] [address]Dr. Sarah Napoles Erythrocyte distribution width (RBC) [Ratio] 13.2 % Normal 11.0-15.0 [facility] Comment on above: Performed By: #### C BC ####[facility] Cp[address] [place], [place] [address]Dr. Sarah Napoles Hematocrit (Bld) [Volume fraction] 34.3 % Critically low 36.0-48.0 [facility] Comment on above: Performed By: #### C BC ####[facility] [address] [place], [place] [address]Dr. Sarah Napoles Hemoglobin (Bld) [Mass/Vol] 11.5 g/dL Critically low 12.0-16.0 [facility] Comment on above: Performed By: #### C BC ####[facility] [address] [place], [place] [address]DrJudy Napoles IG # 0.02 10e3/ul Normal 0.00-0.03 [facility] Comment on above: Performed By: #### C BC ####[facility] [address] [place], [place] [address]Dr. Sarah Napoles IG % 0.2 % Normal 0.0-0.5 [facility] Comment on above: Performed By: #### C BC ####[facility] [address] [place], [place] [address]DrJudy Napoles LYMPH # 1.8 103/ul Normal 1.2-3.8 [facility] Comment on above: Performed By: #### C BC ####[facility] [address] [place] [address]Dr. Sarah Napoles Lymphocytes/100 WBC (Bld) 19.8 % Critically low 20.5-60.0 [facility] Comment on above: Performed By: #### C BC ####[facility] [address] [place] [address]DrJudy Napoles MANUAL DIFF REQ NO Normal [facility] Comment on above: Performed By: #### C BC ####[facility] [address] [place] [address]Dr. Sarah Napoles MCH (RBC) [Entitic mass] 32.2 pg Normal 26.7-34.0 [facility] Comment on above: Performed By: #### C BC ####[facility] [address] [place], [place] [address]Dr. Sarah Napoles MCHC (RBC) [Mass/Vol] 33.5 g/dL Normal 29.9-35.2 [facility] Comment on above: Performed By: #### C BC ####[facility] [address] [place], [place] [address]DrJudy Napoles MCV (RBC) [Entitic vol] 96.1 fL Normal 81.0-99.0 [facility] Comment on above: Performed By: #### C BC ####[facility] [address] [place], [place] [address]Dr. Sarah Napoles MONO # 0.8 103/ul Normal 0.3-0.8 [facility] Comment on above: Performed By: #### C BC ####[facility] [address] [place], [place] [address]DrJudy Napoles Monocytes/100 WBC (Bld) 9.5 % Normal 1.7-12.0 [facility] Comment on above: Performed By: #### C BC ####[facility] Upisks[address]rw[address] [place], [place] [address]Dr. Sarah Napoles NEUT # 6.0 103/ul Normal 1.4-6.5 [facility] Comment on above: Performed By: #### C BC ####[facility] [address] [place] [address]Dr. Sarah Napoles Neutrophils/100 WBC (Bld) 67.4 % Normal 43.0-75.0 [facility] Comment on above: Performed By: #### C BC ####[facility] [address] [place] [address]Dr. Sarah Napoles Platelet mean volume (Bld) [Entitic vol] 10.1 fL Normal 9.5-13.5 [facility] Comment on above: Performed By: #### C BC ####[facility] [address] [place], [place] [address]Dr. Sarah Napoles PLT 283 103/ul Normal 150-450 [facility] Comment on above: Performed By: #### C BC ####[facility] [address] [place], [place] [address]Dr. Sarah Napoles RBC 3.57 106/ul Critically low 4.20-5.40 [facility] Comment on above: Performed By: #### C BC ####[facility] [address] [place], [place] [address]DrJudy Napoles WBC 8.8 103/ul Normal 4.0-11.0 [facility] Comment on above: Performed By: #### C BC ####[facility] [address] [place], [place] [address]DrJudy Napoles GLYCOHEMOGLOBIN A1Con 2022 ADA RECOMMENDATION SEE BELOW Normal [facility] Comment on above: Result Comment: ADA RECOMMENDED LIMIT 4.0 - 6.0 ADA THERAPEUTIC TARGET < 7.0 ACTION SUGGESTED > 7.0 Performed By: #### A 1C ####[facility] [address] [place], [place] [address]DrJudy Napoles Glucose [Mass/Vol] 105 mg/dL Normal [facility] Comment on above: Performed By: #### A 1C ####[facility] [address] [place], [place] [address]DrJudy Napoles HbA1c (Bld) [Mass fraction] 5.3 % Normal 4.5-6.2 [facility] Comment on above: Performed By: #### A 1C ####[facility] [address] [place] [address]Dr. Sarah Napoles LIPID PROFILEon 12-15-2022 CHOL-HDL RATIO NORM SEE BELOW Normal [facility] Comment on above: Result Comment: 3.3 - 4.4 LOW RISK 4.4 - 7.1 AVERAGE RISK 7.1 - 11.0 MODERATE RISK >11.0 HIGH RISK Performed By: #### L IPID, CMP, URIC ####[facility] [address] [place] [address]Dr. Sarah Dony Cholesterol [Mass/Vol] 160 mg/dL Normal <=200 [facility] Comment on above: Performed By: #### L IPID, CMP, URIC ####[facility] [address] [place] [address]Dr. Charlinecassie Dony Cholesterol in HDL [Mass/Vol] 62 mg/dL Critically high 40-60 [facility] Comment on above: Performed By: #### L IPID, CMP, URIC ####[facility] [address] [place] [address]Dr. Saarh Dony Cholesterol in LDL [Mass/Vol] 75.2 mg/dL Normal [facility] Comment on above: Performed By: #### L IPID, CMP, URIC ####[facility] [address] [place] [address]Dr. Charlinecassie Dony Cholesterol.total/Ch olesterol in HDL [Mass ratio] 2.6 {ratio} Normal [facility] Comment on above: Performed By: #### L IPID, CMP, URIC ####[facility] [address] [place] [address]Dr. Sarah Napoles HDL NORMAL > or = 60 mg/dl - LO W CARDIOVASCULAR RISK <40 mg/dl - HIGH CARDIOVASCULAR RISK Normal [facility] Comment on above: Performed By: #### L IPID, CMP, URIC ####[facility] [address] [place] [address]DrJudy Napoles LDL CALC NORMAL SEE BELOW Normal [facility] Comment on above: Result Comment: <100 mg/dl OPTIMAL 100 - 129 mg/dl NEAR OR ABOVE OPTIMAL 130 - 159 mg/dl BORDERLINE HIGH 160 - 189 mg/dl HIGH >190 mg/dl VERY HIGH Performed By: #### L IPID, CMP, URIC ####[facility] [address] [place], [place] [address]JhJudy Napoles Triglyceride [Mass/Vol] 114 mg/dL Normal <=150 [facility] Comment on above: Performed By: #### L IPID, CMP, URIC ####[facility] [address] [place] [id number] Napoles VLDL CALC 22.8 mg/dL Normal [facility] Comment on above: Performed By: #### L IPID, CMP, URIC ####[facility] [address] [place] [address]Dr. Sarah Napoles PROF 14(COMP METB)on 023 Albumin [Mass/Vol] 4.3 g/dL Normal 3.4-5.0 [facility] Comment on above: Performed By: #### L IPID, CMP, URIC #### [facility] [address] [place] [address] [address] Sarah Napoles Albumin/Globulin [Mass ratio] 1.3 {ratio} Normal [facility] Comment on above: Performed By: #### L IPID, CMP, URIC #### [facility] [address] [place] [address] [address] Sarah Napoles ALP [Catalytic activity/Vol] 71 U/L Normal 46-116 [facility] Comment on above: Performed By: #### L IPID, CMP, URIC #### [facility] [address] [place] [address] [address] Sarah Napoles ALT [Catalytic activity/Vol] 25 U/L Normal 14-59 [facility] Comment on above: Performed By: #### L IPID, CMP, URIC #### [facility] [address] [place] [address] [address] Sarah Napoles Anion gap [Moles/Vol] 11.8 mmol/L Normal [facility] Comment on above: Performed By: #### L IPID, CMP, URIC #### [facility] [address] [place] [address] [address] Sarah Napoles AST [Catalytic activity/Vol] 22 U/L Normal 15-37 [facility] Comment on above: Performed By: #### L IPID, CMP, URIC #### [facility] [address] [place] [address] [address] Sarah Napoles Bilirubin [Mass/Vol] 0.3 mg/dL Normal 0.2-1.0 [facility] Comment on above: Performed By: #### L IPID, CMP, URIC #### [facility] [address] [place] [address] [address] Sarah Napoles Calcium [Mass/Vol] 9.8 mg/dL Normal 8.5-10.1 [facility] Comment on above: Performed By: #### L IPID, CMP, URIC #### [facility] [address] [place] [address] Dr. Sarah Napoles Chloride [Moles/Vol] 101 mmol/L Normal 98-107 [facility] Comment on above: Performed By: #### L IPID, CMP, URIC #### [facility] [address] [place] [address] Dr. Sarah Napoles CO2 [Moles/Vol] 29.5 mmol/L Normal 21.0-32.0 [facility] Comment on above: Performed By: #### L IPID, CMP, URIC #### [facility] [address] [place] [address] Dr. Sarah Napoles Creatinine [Mass/Vol] 0.63 mg/dL Normal 0.55-1.02 [facility] Comment on above: Performed By: #### L IPID, CMP, URIC #### [facility] [address] [place] [address] Dr. Sarah Napoles EGFR-AF BURKINAN >60 Normal >=60 [facility] Comment on above: Performed By: #### L IPID, CMP, URIC #### [facility] [address] [place] [address] [address] Sarah Napoles EGFR-NON AF BURKINAN >60 Normal >=60 [facility] Comment on above: Performed By: #### L IPID, CMP, URIC #### [facility] [address] [place] [address] [address] Sarah Napoles Globulin (S) [Mass/Vol] 3.4 g/dL Normal [facility] Comment on above: Performed By: #### L IPID, CMP, URIC #### [facility] [address] [place] [address] [address] Sarah Napoles Glucose [Mass/Vol] 92 mg/dL Normal 74-106 [facility] Comment on above: Performed By: #### L IPID, CMP, URIC #### [facility] [address] [place] [address] Dr. Sarah Napoles Potassium [Moles/Vol] 4.3 mmol/L Normal 3.5-5.1 [facility] Comment on above: Performed By: #### L IPID, CMP, URIC #### [facility] [address] [place] [address] [address] Sarah Napoles Protein [Mass/Vol] 7.7 g/dL Normal 6.4-8.2 [facility] Comment on above: Performed By: #### L IPID, CMP, URIC #### [facility] [address] [place] [address] Dr. Sarah Napoles Sodium [Moles/Vol] 138 mmol/L Normal 136-145 [facility] Comment on above: Performed By: #### L IPID, CMP, URIC #### [facility] [address] [place] [address] [address] Sarah Napoles Urea nitrogen [Mass/Vol] 25.0 mg/dL Critically high 7.0-18.0 [facility] Comment on above: Performed By: #### L IPID, CMP, URIC #### [facility] [address] [place] [address] Dr. Sarah Napoles Urea nitrogen/Creatinine [Mass ratio] 39.7 mg/mg Normal [facility] Comment on above: Performed By: #### L IPID, CMP, URIC #### [facility] [address] [place], [place] [address] Dr. Sarah Napoles URIC ACID SERUMon 12-15-2022 Urate [Mass/Vol] 3.7 mg/dL Normal 2.6-6.0 [facility] Comment on above: Performed By: #### L IPID, CMP, URIC ####[facility] [address] [place], [place] [address]VyDr. Sarah Napoles CT LUNG CANCER SCREENINGon 1 [...] JOVANNI MILLAN Date: 2022-07-21 22:18 Normal [facility] CBC AUTO DIFFon 06-16-2022 BASO # 0.1 103/ul Normal 0.0-0.1 [facility] Comment on above: Performed By: #### C BC ####[facility] [address] [place] [id number]. Sarah Napoles Basophils/100 WBC (Bld) 0.9 % Normal 0.2-2.0 [facility] Comment on above: Performed By: #### C BC ####[facility] [address] [place] [id number]. Sarah Napoles EO # 0.2 103/ul Normal 0.0-0.7 [facility] Comment on above: Performed By: #### C BC ####[facility] [address] [place] [address]Dr. Sarah Napoles Eosinophils/100 WBC (Bld) 2.5 % Normal 0.9-7.0 [facility] Comment on above: Performed By: #### C BC ####[facility] [address] [place], [place] [address]Dr. Sarah Napoles Erythrocyte distribution width (RBC) [Ratio] 13.4 % Normal 11.0-15.0 [facility] Comment on above: Performed By: #### C BC ####[facility] [address] [place], [place] [address]Dr. Sarah Napoles Hematocrit (Bld) [Volume fraction] 33.3 % Critically low 36.0-48.0 [facility] Comment on above: Performed By: #### C BC ####[facility] [address] [place], [place] [address]Dr. Sarah Napoles Hemoglobin (Bld) [Mass/Vol] 10.8 g/dL Critically low 12.0-16.0 [facility] Comment on above: Performed By: #### C BC ####[facility] [address] [place], [place] [address]Dr. Sarah Napoles IG # 0.03 10e3/ul Normal 0.00-0.03 [facility] Comment on above: Performed By: #### C BC ####[facility] [address] [place], [place] [address]Dr. Sarah Dony IG % 0.4 % Normal 0.0-0.5 [facility] Comment on above: Performed By: #### C BC ####[facility] [address] [place], [place] [address]DrJudy Oliviercassie Dony LYMPH # 1.7 103/ul Normal 1.2-3.8 [facility] Comment on above: Performed By: #### C BC ####[facility] [address] [place], [place] [address]Dr. Sarah Napoles Lymphocytes/100 WBC (Bld) 20.4 % Critically low 20.5-60.0 [facility] Comment on above: Performed By: #### C BC ####[facility] [address] [place] [address]Dr. Sarah Napoles MANUAL DIFF REQ NO Normal [facility] Comment on above: Performed By: #### C BC ####[facility] [address] [place] [address]Dr. Sarah Napoles MCH (RBC) [Entitic mass] 32.0 pg Normal 26.7-34.0 [facility] Comment on above: Performed By: #### C BC ####[facility] [address] [place], [place] [address]Dr. Sarah Napoles MCHC (RBC) [Mass/Vol] 32.4 g/dL Normal 29.9-35.2 [facility] Comment on above: Performed By: #### C BC ####[facility] [address] [place], [place] [address]Dr. Sarah Napoles MCV (RBC) [Entitic vol] 98.8 fL Normal 81.0-99.0 [facility] Comment on above: Performed By: #### C BC ####[facility] [address] [place], [place] [address]Dr. Sarah Napoles MONO # 0.9 103/ul Critically high 0.3-0.8 [facility] Comment on above: Performed By: #### C BC ####[facility] [address] [place], [place] [address]Dr. Sarah Napoles Monocytes/100 WBC (Bld) 11.0 % Normal 1.7-12.0 [facility] Comment on above: Performed By: #### C BC ####[facility] [address] [place], [place] [address]DrJudy Napoles NEUT # 5.3 103/ul Normal 1.4-6.5 [facility] Comment on above: Performed By: #### C BC ####[facility] [address] [place], [place] [address]Dr. Sarah Napoles Neutrophils/100 WBC (Bld) 64.8 % Normal 43.0-75.0 [facility] Comment on above: Performed By: #### C BC ####[facility] [address] [place] [address]Dr. Sarah Napoles Platelet mean volume (Bld) [Entitic vol] 10.8 fL Normal 9.5-13.5 [facility] Comment on above: Performed By: #### C BC ####[facility] [id number] [place] [address]Dr. Sarah Napoles PLT 262 103/ul Normal 150-450 [facility] Comment on above: Performed By: #### C BC ####[facility] [address] [place] [address]Dr. Sarah Napoles RBC 3.37 106/ul Critically low 4.20-5.40 The [facility] Comment on above: Performed By: #### C BC ####[facility] [address] [place], [place] [address]Dr. Sarah Napoles WBC 8.1 103/ul Normal 4.0-11.0 [facility] Comment on above: Performed By: #### C BC ####[facility] [address] [place], [place] [address]Dr. Sarah Napoles GLYCOHEMOGLOBIN A1Con 2021 ADA RECOMMENDATION SEE BELOW Normal [facility] Comment on above: Result Comment: ADA RECOMMENDED LIMIT 4.0 - 6.0 ADA THERAPEUTIC TARGET < 7.0 ACTION SUGGESTED > 7.0 Performed By: #### A 1C ####[facility] [address] [place] [address]Dr. Sarah Napoles Glucose [Mass/Vol] 108 mg/dL Normal [facility] Comment on above: Performed By: #### A 1C ####[facility] [address] [place], [place] [address]Dr. Sarah Napoles HbA1c (Bld) [Mass fraction] 5.4 % Normal 4.5-6.2 [facility] Comment on above: Performed By: #### A 1C ####[facility] [address] [place], [place] [address]QqDr. Sarah Napoles LIPID PROFILEon 06-16-2022 CHOL-HDL RATIO NORM SEE BELOW Normal [facility] Comment on above: Result Comment: 3.3 - 4.4 LOW RISK 4.4 - 7.1 AVERAGE RISK 7.1 - 11.0 MODERATE RISK >11.0 HIGH RISK Performed By: #### C MP, LIPID #### [facility] [address] [place], [place] [address] Dr. Sarah Napoles Cholesterol [Mass/Vol] 147 mg/dL Normal <=200 [facility] Comment on above: Performed By: #### C MP, LIPID #### [facility] [address] [place], [place] [address] Dr. Sarah Napoles Cholesterol in HDL [Mass/Vol] 58 mg/dL Normal 40-60 [facility] Comment on above: Performed By: #### C MP, LIPID #### [facility] [address] [place] [id number] [address] Sarah Napoles Cholesterol in LDL [Mass/Vol] 68.0 mg/dL Normal [facility] Comment on above: Performed By: #### C MP, LIPID #### [facility] [address] [place], [place] [address] Dr. Sarah Napoles Cholesterol.total/Ch olesterol in HDL [Mass ratio] 2.5 {ratio} Normal [facility] Comment on above: Performed By: #### C MP, LIPID #### [facility] [address] [place], [place] [address] Dr. Sarah Napoles HDL NORMAL > or = 60 mg/dl - LO W CARDIOVASCULAR RISK <40 mg/dl - HIGH CARDIOVASCULAR RISK Normal [facility] Comment on above: Performed By: #### C MP, LIPID #### [facility] [address] [place], [place] [address] Dr. Sarah Napoles LDL CALC NORMAL SEE BELOW Normal [facility] Comment on above: Result Comment: <100 mg/dl OPTIMAL 100 - 129 mg/dl NEAR OR ABOVE OPTIMAL 130 - 159 mg/dl BORDERLINE HIGH 160 - 189 mg/dl HIGH >190 mg/dl VERY HIGH Performed By: #### C MP, LIPID #### [facility] [address] [place] [address] Dr. Sarah Napoles Triglyceride [Mass/Vol] 105 mg/dL Normal <=150 [facility] Comment on above: Performed By: #### C MP, LIPID #### [facility] [address] [place] [address] [address] Sarah Napoles VLDL CALC 21.0 mg/dL Normal [facility] Comment on above: Performed By: #### C MP, LIPID #### [facility] [address] [place] [address] Dr. Sarah Napoles PROF 14(COMP METB)on 022 Albumin [Mass/Vol] 4.0 g/dL Normal 3.4-5.0 [facility] Comment on above: Performed By: #### C MP, LIPID #### [facility] [address] [place] [address] Dr. Sarah Napoles Albumin/Globulin [Mass ratio] 1.2 {ratio} Normal [facility] Comment on above: Performed By: #### C MP, LIPID #### [facility] [address] [place] [address] Dr. Sarah Napoles ALP [Catalytic activity/Vol] 53 U/L Normal 46-116 [facility] Comment on above: Performed By: #### C MP, LIPID #### [facility] [address] [place] [address] Dr. Sarah Napoles ALT [Catalytic activity/Vol] 32 U/L Normal 14-59 [facility] Comment on above: Performed By: #### C MP, LIPID #### [facility] [address] [place] [address] Dr. Sarah Napoles Anion gap [Moles/Vol] 8.0 mmol/L Normal [facility] Comment on above: Performed By: #### C MP, LIPID #### [facility] [address] [place] [address] Dr. Sarah Napoles AST [Catalytic activity/Vol] 23 U/L Normal 15-37 [facility] Comment on above: Performed By: #### C MP, LIPID #### [facility] [address] [place] [address] [address] Sarah Napoles Bilirubin [Mass/Vol] 0.4 mg/dL Normal 0.2-1.0 [facility] Comment on above: Performed By: #### C MP, LIPID #### [facility] [address] [place] [address] Dr. Sarah Napoles Calcium [Mass/Vol] 9.4 mg/dL Normal 8.5-10.1 [facility] Comment on above: Performed By: #### C MP, LIPID #### [facility] [address] [place] [address] Dr. Sarah Napoles Chloride [Moles/Vol] 100 mmol/L Normal 98-107 [facility] Comment on above: Performed By: #### C MP, LIPID #### [facility] [address] [place] [address] Dr. Sarah Napoles CO2 [Moles/Vol] 30.8 mmol/L Normal 21.0-32.0 [facility] Comment on above: Performed By: #### C MP, LIPID #### [facility] [address] [place] [address] Dr. Sarah Napoles Creatinine [Mass/Vol] 0.68 mg/dL Normal 0.55-1.02 [facility] Comment on above: Performed By: #### C MP, LIPID #### [facility] [address] [place] [address] Dr. Sarah Napoles EGFR-AF BURKINAN >60 Normal >=60 [facility] Comment on above: Performed By: #### C MP, LIPID #### [facility] [address] [place] [address] Dr. Sarah Napoles EGFR-NON AF BURKINAN >60 Normal >=60 [facility] Comment on above: Performed By: #### C MP, LIPID #### [facility] [address] [place] [address] Dr. Sarah Napoles Globulin (S) [Mass/Vol] 3.3 g/dL Normal [facility] Comment on above: Performed By: #### C MP, LIPID #### [facility] [address] [place] [address] [address] Sarah Napoles Glucose [Mass/Vol] 90 mg/dL Normal 74-106 [facility] Comment on above: Performed By: #### C MP, LIPID #### [facility] [address] [place] [address] [address] Sarah Napoles Potassium [Moles/Vol] 3.8 mmol/L Normal 3.5-5.1 [facility] Comment on above: Performed By: #### C MP, LIPID #### [facility] [address] [place] [address] Dr. Sarah Napoles Protein [Mass/Vol] 7.3 g/dL Normal 6.4-8.2 [facility] Comment on above: Performed By: #### C MP, LIPID #### [facility] [address] [place] [address] Dr. Sarah Napoles Sodium [Moles/Vol] 135 mmol/L Critically low 136-145 [facility] Comment on above: Performed By: #### C MP, LIPID #### [facility] [address] [place] [address] Dr. Sarah Napoles Urea nitrogen [Mass/Vol] 13.0 mg/dL Normal 7.0-18.0 [facility] Comment on above: Performed By: #### C MP, LIPID #### [facility] [address] [place] [address] Dr. Sarah Napoles Urea nitrogen/Creatinine [Mass ratio] 19.1 mg/mg Normal [facility] Comment on above: Performed By: #### C MP, LIPID #### [facility] [address] [place] [address] Dr. Sarah Napoles POC GLUCOSE LABon 01-03-2021 Glucose [Mass/Vol] 119 mg/dL High 70-100 [facility] Comment on above: Performed By: #### 8 [id number] #### [facility] [address] [facility] [place] [address], [facility] Glucose [Mass/Vol] 145 mg/dL High 70-100 [facility] Comment on above: Performed By: #### 8 5499 #### [facility] [address] [place] [address], [place] Glucose [Mass/Vol] 93 mg/dL Normal 70-100 [facility] Comment on above: Performed By: #### 8 5499 #### [facility] [address] [place] [address], [place] Glucose [Mass/Vol] 99 mg/dL Normal 70-100 [facility] Comment on above: Performed By: #### 8 [id number] #### [facility] [address] [place] [address], [place] POC GLUCOSE LABon 01-02-2021 Glucose [Mass/Vol] 101 mg/dL High 70-100 [facility] Comment on above: Performed By: #### 8 5499 #### [facility] [address] [place] [address], [place] Glucose [Mass/Vol] 127 mg/dL High 70-100 [facility] Comment on above: Performed By: #### 8 5499 #### [facility] [address] [place] [address], [place] Glucose [Mass/Vol] 110 mg/dL High 70-100 [facility] Comment on above: Performed By: #### 8 5499 #### [facility] [address] [place] [address], [place] BASIC METABOLIC PANELon -3 Calcium [Mass/Vol] 8.4 mg/dL Low 8.6-10.3 [facility] Comment on above: Order Comment: No: D o not add to previous draw Performed By: #### 8 5499 #### [facility] [address] [place] [address], [place] Chloride [Moles/Vol] 106 mmol/L Normal 98-107 The [facility] Comment on above: Order Comment: No: D o not add to previous draw Performed By: #### 8 [id number] #### [facility] [address] [place] [address], [place] CO2 [Moles/Vol] 29 mmol/L Normal 21-31 The [place] Comment on above: Order Comment: No: D o not add to previous draw Performed By: #### 8 [id number] #### [facility] [address] [place] [address], [place] Creatinine [Mass/Vol] 0.50 mg/dL Low 0.60-1.20 [facility] Comment on above: Order Comment: No: D o not add to previous draw Performed By: #### 8 5499 #### [facility] [address] [place] [address], [place] GFR/1.73 sq M.predicted among blacks MDRD (S/P/Bld) [Vol rate/Area] mL/min/{1.73_m2} Normal >60 [facility] Comment on above: Order Comment: No: D o not add to previous draw Performed By: #### 8 [id number] #### [facility] [address] [place] [address], [place] GFR/1.73 sq M.predicted among non-blacks MDRD (S/P/Bld) [Vol rate/Area] mL/min/{1.73_m2} Normal >60 [facility] Comment on above: Order Comment: No: D o not add to previous draw Performed By: #### 8 [id number] #### [facility] [address] [place] [address], [place] Glucose [Mass/Vol] 88 mg/dL Normal 70-[address] [facility] Comment on above: Order Comment: No: D o not add to previous draw Performed By: #### 8 [id number] #### [facility] [address] [place] [address], [place] Potassium [Moles/Vol] 3.3 mmol/L Low 3.5-5.1 The [facility] Comment on above: Order Comment: No: D o not add to previous draw Performed By: #### 8 [id number] #### [facility] [address] [place] [address], [facility] Sodium [Moles/Vol] 141 mmol/L Normal 136-145 [facility] Comment on above: Order Comment: No: D o not add to previous draw Performed By: #### 8 [id number] #### [facility] [address] [place] [address], [facility] Urea nitrogen [Mass/Vol] 10 mg/dL Normal 7-25 The [facility] Comment on above: Order Comment: No: D o not add to previous draw Performed By: #### 8 [id number] #### [facility] [address] [facility] [place] [address], [facility] CBC W/DIFFon 01-01-2021 ABS IMM GRANS 0.1 10*3/uL Normal 0.0-0.[address] [facility] Comment on above: Order Comment: No: D o not add to previous draw Performed By: #### 5 0103 #### [facility] [address] [place] [address], [facility] ABS NEUTROPHILS 10.1 10*3/uL High 1.6-7.6 The [facility] Comment on above: Order Comment: No: D o not add to previous draw Performed By: #### 5 0103 #### [facility] [address] [place] [address], [facility] Basophils (Bld) [#/Vol] 0.0 10*3/uL Normal 0.0-0.2 The [facility] Comment on above: Order Comment: No: D o not add to previous draw Performed By: #### 5 0103 #### [facility] [address] [place] [address], [facility] Basophils/100 WBC (Bld) 0.2 % Normal 0.0-1.0 The [facility] Comment on above: Order Comment: No: D o not add to previous draw Performed By: #### 5 0103 #### [facility] [address] [facility] [place] [address], [facility] Eosinophils (Bld) [#/Vol] 0.0 10*3/uL Normal 0.0-0.5 The [facility] Comment on above: Order Comment: No: D o not add to previous draw Performed By: #### 5 0103 #### [facility] [address] [place] [address], [facility] Eosinophils/100 WBC (Bld) 0.1 % Normal 0.0-6.0 The [facility] Comment on above: Order Comment: No: D o not add to previous draw Performed By: #### 5 0103 #### [facility] [address] Erythrocyte distribution width (RBC) [Ratio] 13.1 % Normal 11.5-15.0 The [facility] Comment on above: Order Comment: No: D o not add to previous draw Performed By: #### 5 0103 #### [facility] [address] Hematocrit (Bld) [Volume fraction] 27.7 % Low 36.0-45.0 The [facility] Comment on above: Order Comment: No: D o not add to previous draw Performed By: #### 5 0103 #### [facility] [address] [place] [address], [facility] Hemoglobin (Bld) [Mass/Vol] 9.2 g/dL Low 12.0-15.0 The [facility] Comment on above: Order Comment: No: D o not add to previous draw Result Comment: RESU LTS CHECKED Performed By: #### 5 3 #### [facility] [address] [place] [address], [place] IMMATURE GRANS 0.4 % Normal 0.0-1.0 [facility] Comment on above: Order Comment: No: D o not add to previous draw Performed By: #### 5 0103 #### [facility] [address] [place] [address], [facility] Lymphocytes (Bld) [#/Vol] 1.8 10*3/uL Normal 1.2-4.0 The [facility] Comment on above: Order Comment: No: D o not add to previous draw Performed By: #### 5 0103 #### [facility] [address] [place] [address], [facility] Lymphocytes/100 WBC (Bld) 13.6 % Low 20.0-45.0 The [facility] Comment on above: Order Comment: No: D o not add to previous draw Performed By: #### 5 0103 #### [facility] [address] [facility] [place] [id number], [facility] MCH (RBC) [Entitic mass] 32.4 pg Normal 27.0-33.0 The [facility] Comment on above: Order Comment: No: D o not add to previous draw Performed By: #### 5 0103 #### [facility] [address] [place] [id number], [facility] MCHC (RBC) [Mass/Vol] 33.2 g/dL Normal 32.0-35.0 The [facility] Comment on above: Order Comment: No: D o not add to previous draw Performed By: #### 5 0103 #### [facility] [address] [place] [address], [facility] MCV (RBC) [Entitic vol] 97.5 fL Normal 82.0-98.0 The [facility] Comment on above: Order Comment: No: D o not add to previous draw Performed By: #### 5 0103 #### [facility] [address] [place] [id number], [facility] Monocytes (Bld) [#/Vol] 1.4 10*3/uL High 0.1-1.0 The [facility] Comment on above: Order Comment: No: D o not add to previous draw Performed By: #### 5 0103 #### [facility] [address] [place] [address], [place] MONOS 10.1 % Normal 5.0-12.0 The [facility] Comment on above: Order Comment: No: D o not add to previous draw Performed By: #### 5 0103 #### [facility] [address] [place] [address], [facility] Neutrophils/100 WBC (Bld) 75.6 % High 40.0-72.0 The [facility] Comment on above: Order Comment: No: D o not add to previous draw Performed By: #### 5 0103 #### [facility] [address] [place] [address], [facility] Nucleated RBC/100 WBC (Bld) [Ratio] 0 % Normal 0-0 The [facility] Comment on above: Order Comment: No: D o not add to previous draw Performed By: #### 5 0103 #### [facility] [address] [place] [id number], [facility] PLAT CNT 237 10*3/uL Normal 150-400 The [facility] Comment on above: Order Comment: No: D o not add to previous draw Performed By: #### 5 0103 #### [facility] [address] [place] [address], [facility] RBC (Bld) [#/Vol] 2.84 10*6/uL Low 3.80-5.00 The [facility] Comment on above: Order Comment: No: D o not add to previous draw Performed By: #### 5 0103 #### [facility] [address] [place] [address], [place] WBC (Bld) [#/Vol] 13.43 10*3/uL High 4.00-10.60 The [facility] Comment on above: Order Comment: No: D o not add to previous draw Performed By: #### 5 0103 #### [facility] [address] [facility] [place] [place] [address], [facility] POC GLUCOSE LABon 01-01-2021 Glucose [Mass/Vol] 115 mg/dL High 70-100 [facility] Comment on above: Performed By: #### 8 5499 #### [facility] [address] [facility] [place] [address], [place] Glucose [Mass/Vol] 110 mg/dL High 70-100 [facility] Comment on above: Performed By: #### 8 5499 #### [facility] [address] [facility] [place] [address], [place] Glucose [Mass/Vol] 111 mg/dL High 70-100 The [facility] Comment on above: Performed By: #### 8 5499 #### [facility] [address] [facility] [place] [address], [place] Glucose [Mass/Vol] 102 mg/dL High 70-100 The [facility] Comment on above: Performed By: #### 8 5499 #### [facility] [address] [facility] [place] [address], [facility] HIP RIGHT 1 OR 2 VWS WITH PE LVISon 12-31-2020 HIP RIGHT 1 OR 2 VWS WITH PELVIS [facility] Department of Radiology [address] [place] [id number] Patient Name: BLANCA ENRIQUEZ : 1960 [...] reports Electronically signed: Panda Smith. Transcribed by: [email or web address], User Resident: SCHUYLER RODRIGUES Electronically Signed by: PANDA SMITH @ 12/31/2020 04:29 PM I personally read this/these film(s) with this resident Normal The [facility] Comment on above: Order Comment: RIGHT ANTERIOR TOTAL HIP REPLACEMENT Operative Reporton Operative Report MR#: [id number] I [facility] Pt. Name: Blanca Enriquez Room #: [id number] Discharge Date: Birthdate: 1960 OPERATIVE REPORT DATE [...] right hip pain despite nonoperative measures. Has [id number] osteoarthritis of the right hip with subchondral [...] Roberts M.D. Date Trans: 12/31/2020 09:28 P/mmo [id number] Normal The [facility] POC GLUCOSE LABon 12-31-2020 Glucose [Mass/Vol] 167 mg/dL High 70-100 The [facility] Comment on above: Performed By: #### 8 [id number] #### [facility] [address] [facility] [place] [place] [address], [place] Glucose [Mass/Vol] 162 mg/dL High 70-100 The [facility] Comment on above: Performed By: #### 8 5499 #### [facility] [address] [place] [address], [place] Glucose [Mass/Vol] 168 mg/dL High 70-100 The [facility] Comment on above: Performed By: #### 8 5499 #### [facility] [address] [facility] [place] [address], [facility] Glucose [Mass/Vol] 104 mg/dL High 70-100 [facility] Comment on above: Performed By: #### 8 5499 #### [facility] [address] [facility] [place] [address], [facility] PORTABLE HIP RIGHT 1 OR 2 VW S WITH PELVISon 12-31-2020 PORTABLE HIP RIGHT 1 OR 2 VWS WITH PELVIS [facility] Department of Radiology [address] [place] [id number] Patient Name: BLANCA ENRIQUEZ : 1960 [...] fracture Electronically signed: Panda Smith. Transcribed by: [email or web address], User Resident: Electronically Signed by: PANDA SMITH @ 12/31/2020 01:05 PM Normal The [facility] Comment on above: Order Comment: Hardw are Evaluation, PACU *MRSA/MSSA DNA NASALon 12-10 *MRSA/MSSA DNA NASAL Clinical Report: (D ) Specimen: NASAL SWAB Collected: 12/10/2020 13:55 Status: Final Last Updated: 12/11/2020 15:48 MSSA DNA (Final) Negative MRSA DNA (Final) Negative Normal The [facility] Comment on above: Performed By: #### 8 [id number] #### [facility] [address] CBC W/DIFFon 12-10-2020 ABS IMM GRANS 0.0 10*3/uL Normal 0.0-0.[address] [facility] Comment on above: Performed By: #### 8 5499 #### [facility] [address] ABS NEUTROPHILS 7.7 10*3/uL High 1.6-7.6 The [facility] Comment on above: Performed By: #### 8 5499 #### [facility] [address] Basophils (Bld) [#/Vol] 0.1 10*3/uL Normal 0.0-0.2 The [facility] Comment on above: Performed By: #### 8 [id number] #### [facility] [address] Basophils/100 WBC (Bld) 0.6 % Normal 0.0-1.0 The [facility] Comment on above: Performed By: #### 8 [id number] #### [facility] [address] [facility] [place] [address], [facility] Eosinophils (Bld) [#/Vol] 0.1 10*3/uL Normal 0.0-0.5 The [facility] Comment on above: Performed By: #### 8 [id number] #### [facility] [address] [facility] [place] [address], [facility] Eosinophils/100 WBC (Bld) 1.0 % Normal 0.0-6.0 The [facility] Comment on above: Performed By: #### 8 [id number] #### [facility] [address] [facility] [place] [address], [facility] Erythrocyte distribution width (RBC) [Ratio] 13.0 % Normal 11.5-15.0 The [facility] Comment on above: Performed By: #### 8 [id number] #### [facility] [address] [facility] [facility] [address] Hematocrit (Bld) [Volume fraction] 36.2 % Normal 36.0-45.0 The [facility] Comment on above: Performed By: #### [id number] #### [facility] [address] [facility] [place] [address], [facility] Hemoglobin (Bld) [Mass/Vol] 11.9 g/dL Low 12.0-15.0 The [facility] Comment on above: Performed By: #### [id number] #### [facility] [address] [facility] [place] [address], [facility] IMMATURE GRANS 0.3 % Normal 0.0-1.[address] [facility] Comment on above: Performed By: #### [id number] #### [facility] [address] [facility] [place] [address], [facility] Lymphocytes (Bld) [#/Vol] 1.5 10*3/uL Normal 1.2-4.0 The [facility] Comment on above: Performed By: #### 8 [id number] #### [facility] [address] [facility] [place] [address], [facility] Lymphocytes/100 WBC (Bld) 15.1 % Low 20.0-45.0 The [facility] Comment on above: Performed By: #### [id number] #### [facility] [address] [facility] [place] [address], [facility] MCH (RBC) [Entitic mass] 31.9 pg Normal 27.0-33.0 The [facility] Comment on above: Performed By: #### [id number] #### [facility] [address] [facility] [place] [place] [address], [facility] MCHC (RBC) [Mass/Vol] 32.9 g/dL Normal 32.0-35.0 The [facility] Comment on above: Performed By: #### [id number] #### [facility] [address] [facility] [place] [place] [address], [facility] MCV (RBC) [Entitic vol] 97.1 fL Normal 82.0-98.0 The [facility] Comment on above: Performed By: #### [id number] #### [facility] [address] [facility] [place] [address], [facility] Monocytes (Bld) [#/Vol] 0.7 10*3/uL Normal 0.1-1.0 The [facility] Comment on above: Performed By: #### [id number] #### [facility] [address] [facility] [place] [address], [facility] MONOS 7.3 % Normal 5.0-12.0 The [facility] Comment on above: Performed By: #### 8 [id number] #### [facility] [address] [facility] [place] [address], [facility] Neutrophils/100 WBC (Bld) 75.7 % High 40.0-72.0 The [facility] Comment on above: Performed By: #### [id number] #### [facility] [address] [facility] [place] [address], [facility] Nucleated RBC/100 WBC (Bld) [Ratio] 0 % Normal 0-0 [facility] Comment on above: Performed By: #### [id number] #### [facility] [address] [facility] [place] [address], [facility] PLAT CNT 290 10*3/uL Normal 150-400 The [facility] Comment on above: Performed By: #### 8 [id number] #### [facility] [address] [facility] [place] [address], [facility] RBC (Bld) [#/Vol] 3.73 10*6/uL Low 3.80-5.00 The [facility] Comment on above: Performed By: #### 8 [id number] #### [facility] [address] [facility] [place] [address], [facility] WBC (Bld) [#/Vol] 10.11 10*3/uL Normal 4.00-10.60 [facility] Comment on above: Performed By: #### [id number] #### [facility] [address] [facility] [place] [address], [facility] HEMOGLOBIN A1Con 12-10-2020 Glucose [Moles/Vol] 108 mmol/L Normal [facility] Comment on above: Performed By: #### 3 [id number] #### [facility] [address] [facility] [place] [address], [facility] HbA1c (Bld) [Mass fraction] 5.4 % Normal 4.0-6.0 The [facility] Comment on above: Performed By: #### 3 [id number] #### [facility] [address] [facility] [place] [address], [facility] HIP RIGHT 1 OR 2 VWS WITH PE LVISon 11-22-2020 HIP RIGHT 1 OR 2 VWS WITH PELVIS [facility] Department of Radiology [address] [place] [address] [phone] Patient Name: BLANCA ENRIQUEZ : 1960 Sex: [...] exam. Electronically signed: Rodney Sutherland. Transcribed by: [email or web address], User Resident: Electronically Signed by: RODNEY SUTHERLAND @ 11/22/2020 03:43 PM Jemison [facility] Comment on above: Order Comment: Evalu ate Encounters Encounter Date Encounter Type Care Provider Facility Start: 05-02-2024 End: 05-02-2024 ambulatory Chikis May MD Facility:[facility] Start: 03-15-2024 End: 03-15-2024 ambulatory [facility] Not Available Start: 12-10-2023 End: 12-10-2023 ambulatory [facility] Not Available Start: 11-12-2023 Orders Only Shaikh Reyes PALACIO Work Phone: [facility] Comment on above: Chronic left shoulde r pain; Chronic pain of left knee Start: 11-09-2023 End: 11-09-2023 ambulatory Chikis May MD Facility: [facility] Start: 09-08-2023 End: 09-08-2023 ambulatory [facility] Not Available Start: 09-08-2023 Patient encounter procedure Shaikh Reyes PAL[place]IO Work Phone: [facility] Start: 06-29-2023 End: 06-29-2023 ambulatory Chikis May MD Facility: [facility] Start: 06-22-2023 End: 06-22-2023 ambulatory Chikis May MD Facility: [facility] Start: [...] FAWWAD Facility:[facility] Start: 06-16-2022 End: 06-17-2022 ambulatory SHAIKH Gerson CHAMBERS Facility:[facility] Start: 12-31-2020 End: 01-03-2021 ambulatory PHYSICIAN UNKNOWN Facility:[facility] Procedures Date Procedure Procedure Detail Performing Clinician Start: 09-08-2023 Mammography Shaikh Mayelin rankin MD Work Phone: Start: 12-31-2020 ANESTH HIP ARTHROPLASTY HERMINIO ROBERTS Start: 12-31-2020 JOINT DEVICE (IMPLANTABLE) HERMINIO ROBERTS Start: 12-31-2020 TOTAL HIP ARTHROPLASTY HERMINIO ROBERTS Start: 10-05-2017 Colonoscopy Shaikh Mayelin rankin MD Work Phone: Plan of Treatment Date Care Activity Detail Author Start: 10-05-2027 Screening for malign ant neoplasm of colon [facility] Start: 09-08-2024 Medicare Annual Well ness (AWV) Medicare Annual Wellness (AWV) [facility] Start: 09-08-2024 Screening for malign ant neoplasm of breast Mammogram [facility] Start: 12-09-2023 End: 12-09-2023 Patient encounter procedure 12/09/2023 3:30 PM EST Office Visit [facility] [address] [place] [phone] Shaikh Chambers MD [address] [place] [address] [facility] Start: 06-05-2023 Influenza vaccination Influenza Vacc ine (#1) [facility] Start: 2023 Pneumococcal Vaccine : 65+ Years (1 - PCV) Pneumococcal Vaccine: 65+ Years (1 - PCV) [facility] Start: 1988 Screening for malign ant neoplasm of cervix [facility] Start: 1979 Screening for malign ant neoplasm of cervix Pap Smear [facility] Start: 1960 Screening for malign ant neoplasm of colon [facility] Immunizations Immunization Date Immunization Notes Care Provider Fa cility 10-01-2022 influenza virus vacc ine, unspecified formulation Shaikh Reyes PALACIO Work Phone: [facility] Payers Date Payer Category Payer Unknown 2021 Medicare ANTHEM MEDICARE ADVANTAGE ANTH MEDICARE ADVANTAGE [id number] 2021-Present [address] [place] [address] [id number] 1961 Unknown [id number] 1960 Unknown [id number] [id number] 1960 Unknown [id number] 2.16.840.1.170234.3.579.2.593 1960 Unknown [id number] 2.16.840.1.898307.3.579.2.593 1960 Unknown [id number] 2.16.840.1.155798.3.579.2.593 1958 Unknown [id number] 2.16.840.1.649837.3.579.2.593 1958 Unknown [id number] 2.16.840.1.872198.3.579.2.593 1958 Unknown [id number] 2.16.840.1.410232.3.579.2.593 1958 Unknown [id number] 2.16.840.1.558004.3.579.2.593 1958 Unknown [id number] 2.16.840.1.791390.3.579.2.593 1958 Unknown [id number] 2.16.840.1.193196.3.579.2.593 1960 Unknown [id number] 2.16.840.1.731319.3.579.2.125 9 1960 Unknown [id number] 2.16.840.1.541375.3.579.2.125 9 1960 Unknown [id number] 2.16.840.1.882616.3.579.2.125 9 1960 Unknown [id number] 2.16.840.1.022389.3.579.2.196 1960 Unknown [id number] 2.16.840.1.625433.3.579.2.196 1960 Unknown [id number] 2.16.840.1.617838.3.579.2.196 1960 Unknown [id number] 2.16.840.1.076906.3.579.2.196 Social History Date Type Detail Facility Start: 09-08-2023 Tobacco smoking status FLIS Ex-smoke r [facility] End: 12-03-2020 History [...] to any clubs or organizations such as jain groups, unions, fraternal or athletic groups, or [...] Not at all [facility] (I/We) worried bhupendra er (my/our) food would run out before (I/we) got money to buy more. Never true [facility] Start: 08-20-2023 Tobacco Comment Last smoked 1-5 year s [facility] Start: 09-08-2023 Alcohol Comment quit 10 years ago [facility] Start: 1960 Sex Assigned At Not on file [facility] Clinical Note 12-17-2022 Note Date & [...] authenticated by: JOVANNI MILLAN Date: 2022-12-17 16:26 [facility] Evaluation note Note Date & Type [...] section and content) DATE CREATED AUTHOR 02/27/2021 [facility] DATE CREATED AUTHOR AUTHOR'S ORGANIZ ATION 03/13/2023 [facility] DATE CREATED AUTHOR AUTHOR'S ORGANIZ ATION 03/16/2024 [facility] EPIC DATE CREATED AUTHOR AUTHOR'S ORGANIZ ATION 05/17/2024 [facility] Care Teams (unrecognized sec tion and content) Display Department Manager Relationship Specialty Start Date End Date Shaikh [...] BE BASED ON THE PRIMARY CLINICAL RECORDS. [facility] [employer] [facility]. provides no warranty or guarantee of the accuracy or completeness of information in this document.
--- NOTE | 2024-05-19 12:53 | P.CN_ITS ---
Consult Note: HPI Data of Consult Patient: known to practice within the last 3 years Consult date: 06/29/23 Requesting Physician: Deysi Zhou NP Primary Care Provider: Shaikh Reyes MD Consult Narrative Reason for consult: Left neck and shoulder pain Narrative: Pleasant 64yof who presents for assessment. Notes persistence of pain from left neck and shoulder. Cervical imaging reviewed, which is significant for moderate to severe spondylosis at C5-6 and C6-7. Completed physical therapy and continues in provider directed home exercise program >6 weeks, with limited benefit. Has had left shoulder injection previously, with limited benefit. Currently taking gabapentin 300mg TID without benefit. Denies adverse medication side effects. Previously underwent left C5/6 C6/7 facet medial branch block #1 with no improvement. Patient has been evaluated by Dr Cox/Martín for left shoul royce pain, recent CT shows severe OA and chronic rotator cuff injury. Recently completed left suprascapular and axillary nerve block #1 with 100% improvement in pain and functional ability immediately following and 4 hours after her procedure. cc:: CC: Deysi Zhou NP Review of Systems ROS Status of ROS 10 or more systems reviewed and unremark able except as noted in history and below Musculoskeletal Reports: neck pain and joint pain Meds Home Medications and Allergies Home Medications ?Medication ?Instructions ?Recorded ?Confirmed ?Type acetaminophen 325 mg tablet 650 mg PO Q6H PRN pain 06/22/23 05/02/24 History (Tylenol) nabumetone 500 mg tablet 500 mg PO BID 06/22/23 05/02/24 History oxycodone 5 mg capsule 5 mg PO BID 06/22/23 05/02/24 History TUMERIC QDAY 06/24/23 History Vitamin B-Complex QDAY 06/24/23 History alendronate 35 mg tablet 35 mg PO QWEEK 06/24/23 05/02/24 History allopurinol 100 mg tablet 100 mg PO BID 06/24/23 05/02/24 History ascorbate calcium (vitamin C) 500 500 mg PO DAILY 06/24/23 05/02/24 History mg tablet bromelains 375 mg capsule mg PO 06/24/23 History calcium carb-ergocalciferol (vit tab PO 06/24/23 History D2) 600 mg calcium-200 unit tablet carvedilol 25 mg tablet (Coreg) 25 mg PO Q12H 06/24/23 05/02/24 History cholecalciferol (vitamin D3) 50 50 mcg PO DAILY 06/24/23 05/02/24 History mcg (2,000 unit) tablet (D3 DOTS) cinnamon bark 500 mg capsule 1,000 mg PO DAILY 06/24/23 05/02/24 History (Cinnamon) coenzyme Q10 100 mg capsule (Co 200 mg PO DAILY 06/24/23 05/02/24 History Q-10) cranberry extract 500 mg capsule 500 mg PO DAILY 06/24/23 05/02/24 History diphenhydramine HCl 50 mg capsule 100 mg PO QDAY 06/24/23 05/02/24 History evening primrose oil 500 mg capsule 500 mg PO DAILY 06/24/23 05/02/24 History famotidine 20 mg tablet (Pepcid) 20 mg PO DAILY 06/24/23 05/02/24 History gabapentin 300 mg capsule 300 mg PO TID 06/24/23 05/02/24 History garlic 1,000 mg capsule (garlic 1,000 mg PO DAILY 06/24/23 05/02/24 History oil) ginkgo biloba 120 mg tablet 120 mg PO DAILY 06/24/23 05/02/24 History glucosamine sulfate 1,000 mg 1,000 mg PO DAILY 06/24/23 05/02/24 History capsule grape seed extract 50 mg capsule 100 mg PO DAILY 06/24/23 05/02/24 History green tea leaf extract 250 mg 500 mg PO QDAY 06/24/23 05/02/24 History capsule (Green Tea) hydrochlorothiazide 25 mg tablet 25 mg PO DAILY 06/24/23 05/02/24 History loratadine 10 mg capsule 10 mg PO DAILY 06/24/23 05/02/24 History losartan 100 mg tablet 100 mg PO DAILY 06/24/23 05/02/24 History melatonin 10 mg tablet 20 mg PO DAILY 06/24/23 05/02/24 History multivitamin 1 tab PO DAILY 06/24/23 05/02/24 History omega 7-wlf-jvu-fish oil 1,000 mg 2 cap PO DAILY 06/24/23 05/02/24 History (120 mg-180 mg) capsule (Fish Oil) paroxetine HCl 10 mg tablet (Paxil) 10 mg PO DAILY 06/24/23 05/02/24 History simvastatin 20 mg tablet 20 mg PO DAILY 06/24/23 05/02/24 History vitamin E 200 unit capsule 200 unit PO DAILY 06/24/23 05/02/24 History Allergies Allergy/AdvReac Type Severity Reaction Status Date / Time aspirin Allergy Mild unkown Verified 11/09/23 10:11 Exam Constitutional Documenting provider has reviewed patient's vital signs: yes Common normals: no apparent distress, oriented x3, healthy appearing, alert and well nourished General appearance: cooperative HENMT Common normals: normocephalic, hearing grossly normal bilaterally and moist oral mucous membranes Head and scalp: normocephalic Eye Common normals: PERRL Pupil: PERRL Neck & C-Spine Common normals: full ROM General: normal visual inspection Cervical spine: pain with cervical ROM, cervical spine tenderness and paracervical muscle tenderness Chest Common normals: inspection of chest normal Respiratory Common normals: normal respiratory effort, no retractions and no use of accessory muscles Extremity Left upper extremity: shoulder joint Other: left shoulder limited ROM, unable to lift arm above head, weakness to LUE 4/5 sensation intact posterior lift off positive, positive apley scratch test Neuro Common normals: oriented x3, CN's II-XII intact bilaterally, moves all extremities, no focal motor deficits, no sensory deficits noted and deep tendon reflexes 2+ bilaterally Sensorium/orientation: alert Motor exam: strength 5/5 throughout and no movement abnormalities noted Psych Common normals: mental status grossly normal, thought process normal, cooperative, affect normal, speech normal and activity/motor behavior normal Speech: normal speech Thought process: normal thought process Results Additional Findings Additional findings: If on a controlled substance or opioids, I have checked an [place] report on this patient and there are no aberrancies noted in the prescribing history.??If on a controlled substance or opioid a drug screen was completed and reviewed within the last year, and if there has not been a drug screen completed we ordered one today to monitor higher risk, state monitored pain medication use. As part of providing excellent, safe, comprehensive care, the following was completed at our patient's visit: 1. A medication reconciliation and review to ensure accurate knowledge of current/active medications, including asking our patients to inform us about any dhnx-eck-hvvaowj medications or herbal remedies/nutritional supplements/alternative remedies. 2. A review to specifically ensure our patients have had annual screening for screening for depression, screening for tobacco use, and screening for unhealthy alcohol use. For concerning screenings had a discussion with the patient, provided patient education, and recommended follow-up with primary care provider when appropriate. If patient noted with a risk of falling, they received education on strength, gait, and balance training to prevent future risk of falling. Assessment and Plan Assessment and Plan (1) Left shoulder pain: (2) Rotator cuff tear arthropathy of left shoulder: (3) Osteoarthritis of left shoulder: Plan left suprascapular and axillary nerve thermal RFA continue medications through PCP f/u after injection
== END 2024-05-19 12:35 | disposition home or self-care (01) ==
LOC: PM 12:34
PROVIDERS: PCP Internal Medicine; Visit Provider Nurse Practitioner
DX: M25.512 Pain in left shoulder (principal); M75.102 Unspecified rotator cuff tear or rupture of left shoulder, not specified as traumatic; M19.012 Primary osteoarthritis, left shoulder
CPT/HCPCS: G0463

== ENCOUNTER 2024-06-27 07:13 | Day surgery (SDC) | payer MEDICARE, SELFPAY ==
--- OUTSIDE RECORDS SUMMARY | 2024-06-27 07:17 | XMS_ITS | CCD ---
Author Organization [facility] Care Team Providers Care Elastic Yarn Twister Name Role Phone UNKNOWN, PHYSICIAN Primary Care Unavailable UNKNOWN, PHYSICIAN Referring Unavailable HERMINIO ROBERTS Admitting Unavailable HERMINIO ROBERTS Attending Unavailable HERMINIO ROBERTS Surgeon Unavailable AL Procedure Practitioner Unavailab SHAIKH Garcia H Consulting [...] PALACIO, Andshukri Henderson Attending Unavailable Lalo PALACIO, Chikis Henderson Attending Unavailable SHAIKH CHAMBERS Attending Unavailable SHAIKH CHAMBERS Attending Unavailable SHAIKH CHAMBERS Attending Unavailable MAISHA BRYANT Attending Unavailabl e Allergies Allergy Classification Reported Allergen(s) Allergy Type Date of Onset Reaction(s) Facility Aspirin (1 source) Aspirin; Translations: [ASPIRIN] Drug Allergy 12-26-2020 [facility] Repository (1 source) Amino Acids Drug Allergy [facility] Repository (1 source) Aspirin Drug Allergy [facility] Repository (1 source) Aluminum aspirin Drug Allergy 04-30-2023 [facility] Medications Current Medications Medication Drug Class(es) Dates Sig (Normalized) Sig (Original) alendronic acid 35 mg oral tablet (2 sources) Bisphosphonate take 1 tablet by latha th once daily alendronate (Fosamax) 35 MG tablet [...] 1000 mg oral capsule (1 source) Evening [place] Oil 1000 MG capsule as directed Orally [...] DR MARIA ANTONIA CONRAD M.D. Admission #: [id number] Family : Order #: [id number] CLICK HERE TO VIEW EXAM RADIOLOGY REPORT [...] Conrad MD on 03/03/2023 at 13:46 Normal [facility] VC EXT VENOUS RT LIMITEDon 0 03-03-2023 VC EXT VENOUS RT LIMITED Patient: BLANCA ENRIQUEZ Exam Date: 03/03/2023 : 1960 Gender:F Ordering : DR MARIA ANTONIA CONRAD M.D. Admission #: [id number] Family : Order #: [id number] CLICK HERE TO VIEW EXAM RADIOLOGY REPORT [...] Conrad MD on 03/03/2023 at 13:10 Normal [facility] VC ENDOVENOUS ABL 1ST V RTon 02-25-2023 VC ENDOVENOUS ABL 1ST V RT Patient: BLANCA ENRIQUEZ Exam Date: 02/25/2023 : 1960 Gender:F Ordering : DR MARIA ANTONIA CONRAD M.D. Admission #: [id number] Family : Order #: [id number] CLICK HERE TO VIEW EXAM RADIOLOGY REPORT PROCEDURE: VEIN CENTER ENDOVENOUS ABLATION FIRST VEIN RIGHT COMPARISON: VC VENOUS REFLUX SARITHA LMT, 01/08/2023. INDICATIONS: Pain co-occurrent and due to varicose veins of bilateral legs I83.813 OPERATIVE REPORT: The risks and benefits of the procedure had been previously discussed, and were rediscussed at length. Informed written consent was obtained by wy and Darnell Sosa assisted. Time out procedure [...] Millan M.D. on 02/25/2023 at 15:01 Normal [facility] VC CONSULT FOLLOWUPon 2022 VC CONSULT FOLLOWUP Patient: BLANCA ENRIQUEZ Exam Date: 02/09/2023 : 1960 Gender:F Ordering : DR MARIA ANTONIA CONRAD M.D. Admission #: [id number] Family : Order #: [id number] CLICK HERE TO VIEW EXAM RADIOLOGY REPORT [...] Millan M.D. on 02/09/2023 at 11:43 Normal [facility] VC EXT VENOUS LT LIMITEDon 0 02-09-2023 VC EXT VENOUS LT LIMITED Patient: BLNACA ENRIQUEZ Exam Date: 02/09/2023 : 1960 Gender:F Ordering : DR MARIA ANTONIA CONRAD M.D. Admission #: [id number] Family : Order #: [id number] CLICK HERE TO VIEW EXAM RADIOLOGY REPORT [...] Millan M.D. on 02/09/2023 at 11:35 Normal [facility] VC ENDOVENOUS ABL 1ST V LTon 02-02-2023 VC ENDOVENOUS ABL 1ST V LT Patient: BLANCA ENRIQUEZ Exam Date: 02/02/2023 : 1960 Gender:F Ordering : DR MARIA ANTONIA CONRAD M.D. Admission #: [id number] Family : Order #: [id number] CLICK HERE TO VIEW EXAM RADIOLOGY REPORT [...] Millan M.D. on 02/02/2023 at 14:17 Normal [facility] VC COMP CONSULTATIONon 01-08 VC COMP CONSULTATION Patient: BLANCA ENRIQUEZ Exam Date: 01/08/2023 : 1960 Gender:F Ordering : DR MARIA ANTONIA CONRAD M.D. Admission #: [id number] Family : Order #: [id number] CLICK HERE TO VIEW EXAM RADIOLOGY REPORT [...] saphenous, mild to moderate right small saphenous carl-tl-qzycjxve left anterior accessory saphenous vein venous insufficiency [...] Conrad MD on 01/08/2023 at 15:14 Normal [facility] VC VENOUS REFLUX SARITHA LMTon 0 01-08-2023 VC VENOUS REFLUX SARITHA LMT Patient: BLANCA ENRIQUEZ Exam Date: 01/08/2023 : 1960 Gender:F Ordering : DR MARIA ANTONIA CONRAD M.D. Admission #: [id number] Family : Order #: [id number] CLICK HERE TO VIEW EXAM RADIOLOGY REPORT [...] chronic thrombus visualized Compressibility: Normal Flow: Normal Heel Breaster: Dist/med calf 3.7 mm with 2.4s reflux. [...] Bilateral incompetent varicose veins 5. 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 Left suprapatellar fluid collection likely joint effusion and popliteal lesion likely a cyst Dictated by: Maria Antonia Conrad MD on 01/08/2023 at 13:50 Approved by: Maria Antonia Conrad MD on 01/08/2023 at 13:52 Normal [facility] XR KNEE SARITHA 4V or >on 03-15- 2023 XR KNEE SARITHA 4V or > EXAMINATION: [...] Normal [facility] XR SHOULDER SARITHA 2V or >on XR [...] narrowing of the glenohumeral joints with likely edsv-im-sqnw contact. Degenerative osteophyte along the inferior articular [...] Normal [facility] CBC AUTO DIFFon 12-15-2022 BASO # 0.1 103/ul Normal 0.0-0.1 [facility] Comment on above: Performed By: #### C BC ####[facility] [address] [place] [id number]. Yilan Napoles Basophils/100 WBC (Bld) 0.8 % Normal 0.2-2.0 [facility] Comment on above: Performed By: #### C BC ####[facility] [address] [place], [place] [address]Dr. Sarah Napoles EO # 0.2 103/ul Normal 0.0-0.7 [facility] Comment on above: Performed By: #### C BC ####[facility] [address] [place], [place] [address]Dr. Sarah Napoles Eosinophils/100 WBC (Bld) 2.3 % Normal 0.9-7.0 [facility] Comment on above: Performed By: #### C BC ####[facility] Y[address] [place], [place] [address]Dr. Sarah Napoles Erythrocyte distribution width (RBC) [Ratio] 13.2 % Normal 11.0-15.0 [facility] Comment on above: Performed By: #### C BC ####[facility] [address] [place], [place] [address]Dr. Sarah Napoles Hematocrit (Bld) [Volume fraction] 34.3 % Critically low 36.0-48.0 [facility] Comment on above: Performed By: #### C BC ####[facility] [address] [place], [place] [address]Dr. Sarah Napoles Hemoglobin (Bld) [Mass/Vol] 11.5 g/dL Critically low 12.0-16.0 [facility] Comment on above: Performed By: #### C BC ####[facility] T[address] [place], [place] [address]Dr. Sarah Napoles IG # 0.02 10e3/ul Normal 0.00-0.03 [facility] Comment on above: Performed By: #### C BC ####[facility] [address] [place], [place] [address]Dr. Sarah Napoles IG % 0.2 % Normal 0.0-0.5 [facility] Comment on above: Performed By: #### C BC ####[facility] R[address]fc[address] [place], [place] [address]Dr. Charlinecassie Napoles LYMPH # 1.8 103/ul Normal 1.2-3.8 [facility] Comment on above: Performed By: #### C BC ####[facility] [address] [place] [phone]. Charlinecassie Napoles Lymphocytes/100 WBC (Bld) 19.8 % Critically low 20.5-60.0 [facility] Comment on above: Performed By: #### C BC ####[facility] [address] [place] [address]Dr. Sarah Napoles MANUAL DIFF REQ NO Normal [facility] Comment on above: Performed By: #### C BC ####[facility] [address] [place] [address]Dr. Sarah Dony MCH (RBC) [Entitic mass] 32.2 pg Normal 26.7-34.0 [facility] Comment on above: Performed By: #### C BC ####[facility] [address] [place] [address]Dr. Sarah Dony MCHC (RBC) [Mass/Vol] 33.5 g/dL Normal 29.9-35.2 [facility] Comment on above: Performed By: #### C BC ####[facility] [address] [place] [address]Dr. Sarah Napoles MCV (RBC) [Entitic vol] 96.1 fL Normal 81.0-99.0 [facility] Comment on above: Performed By: #### C BC ####[facility] [address] [place] [address]Dr. Sarah Napoles MONO # 0.8 103/ul Normal 0.3-0.8 [facility] Comment on above: Performed By: #### C BC ####[facility] [address] [place] [address]Dr. Sarah Napoles Monocytes/100 WBC (Bld) 9.5 % Normal 1.7-12.0 [facility] Comment on above: Performed By: #### C BC ####[facility] [address] [place] [address]Dr. Sarah Napoles NEUT # 6.0 103/ul Normal 1.4-6.5 [facility] Comment on above: Performed By: #### C BC ####[facility] [address] [place] [address]Dr. Sarah Napoles Neutrophils/100 WBC (Bld) 67.4 % Normal 43.0-75.0 [facility] Comment on above: Performed By: #### C BC ####[facility] [address] [place] [address]Dr. Sarah Napoles Platelet mean volume (Bld) [Entitic vol] 10.1 fL Normal 9.5-13.5 [facility] Comment on above: Performed By: #### C BC ####[facility] [address] [place] [address]Dr. Sarah Napoles PLT 283 103/ul Normal 150-450 [facility] Comment on above: Performed By: #### C BC ####[facility] [address] [place], [place] [address]Dr. Sarah Napoles RBC 3.57 106/ul Critically low 4.20-5.40 [facility] Comment on above: Performed By: #### C BC ####[facility] [address] [place], [place] [address]Dr. Sarah Napoles WBC 8.8 103/ul Normal 4.0-11.0 [facility] Comment on above: Performed By: #### C BC ####[facility] [address] [place], [place] [address]Dr. Sarah Napoles GLYCOHEMOGLOBIN A1Con 2022 ADA RECOMMENDATION SEE BELOW Normal [facility] Comment on above: Result Comment: ADA RECOMMENDED LIMIT 4.0 - 6.0 ADA THERAPEUTIC TARGET < 7.0 ACTION SUGGESTED > 7.0 Performed By: #### A 1C ####[facility] [address] [place] [address]Dr. Sarah Napoles Glucose [Mass/Vol] 105 mg/dL Normal [facility] Comment on above: Performed By: #### A 1C ####[facility] [address] [place] [phone]. Sarah Napoles HbA1c (Bld) [Mass fraction] 5.3 % Normal 4.5-6.2 [facility] Comment on above: Performed By: #### A 1C ####[facility] [address] [place] [address]Dr. Sarah Napoles LIPID PROFILEon 12-15-2022 CHOL-HDL RATIO NORM SEE BELOW Normal [facility] Comment on above: Result Comment: 3.3 - 4.4 LOW RISK 4.4 - 7.1 AVERAGE RISK 7.1 - 11.0 MODERATE RISK >11.0 HIGH RISK Performed By: #### L IPID, CMP, URIC ####[facility] [address] [place] [address]Dr. Sarah Napoles Cholesterol [Mass/Vol] 160 mg/dL Normal <=200 [facility] Comment on above: Performed By: #### L IPID, CMP, URIC ####[facility] [address] [place] [address]Dr. Sarah Napoles Cholesterol in HDL [Mass/Vol] 62 mg/dL Critically high 40-60 [facility] Comment on above: Performed By: #### L IPID, CMP, URIC ####[facility] [address] [place] [address]Dr. Sarah Napoles Cholesterol in LDL [Mass/Vol] 75.2 mg/dL Normal [facility] Comment on above: Performed By: #### L IPID, CMP, URIC ####[facility] [address] [place] [phone]. Sarah Napoles Cholesterol.total/Ch olesterol in HDL [Mass ratio] 2.6 {ratio} Normal [facility] Comment on above: Performed By: #### L IPID, CMP, URIC ####[facility] [address] [place] [address]Dr. Sarah Napoles HDL NORMAL > or = 60 mg/dl - LO W CARDIOVASCULAR RISK <40 mg/dl - HIGH CARDIOVASCULAR RISK Normal [facility] Comment on above: Performed By: #### L IPID, CMP, URIC ####[facility] [address] [place] [address]Dr. Sarah Napoles LDL CALC NORMAL SEE BELOW Normal [facility] Comment on above: Result Comment: <100 mg/dl OPTIMAL 100 - 129 mg/dl NEAR OR ABOVE OPTIMAL 130 - 159 mg/dl BORDERLINE HIGH 160 - 189 mg/dl HIGH >190 mg/dl VERY HIGH Performed By: #### L IPID, CMP, URIC ####[facility] [address] [place] [phone] Napoles Triglyceride [Mass/Vol] 114 mg/dL Normal <=150 [facility] Comment on above: Performed By: #### L IPID, CMP, URIC ####[facility] [address] [place] [address]DrJudy Napoles VLDL CALC 22.8 mg/dL Normal [facility] Comment on above: Performed By: #### L IPID, CMP, URIC ####[facility] [address] [place] [address]Dr. Sarah Napoles PROF 14(COMP METB)on 023 Albumin [Mass/Vol] 4.3 g/dL Normal 3.4-5.0 [facility] Comment on above: Performed By: #### L IPID, CMP, URIC #### [facility] Laboratory [address] [address] [address] Sarah Napoles Albumin/Globulin [Mass ratio] 1.3 {ratio} Normal [facility] Comment on above: Performed By: #### L IPID, CMP, URIC #### [facility] [address] [address] [address] Sarah Napoles ALP [Catalytic activity/Vol] 71 U/L Normal 46-116 [facility] Comment on above: Performed By: #### L IPID, CMP, URIC #### [facility] [address] [address] [address] Sarah Napoles ALT [Catalytic activity/Vol] 25 U/L Normal 14-59 [facility] Comment on above: Performed By: #### L IPID, CMP, URIC #### [facility] [address] [address] [address] Sarah Napoles Anion gap [Moles/Vol] 11.8 mmol/L Normal [facility] Comment on above: Performed By: #### L IPID, CMP, URIC #### [facility] [address] [place] [address] Dr. Sarah Napoles AST [Catalytic activity/Vol] 22 U/L Normal 15-37 [facility] Comment on above: Performed By: #### L IPID, CMP, URIC #### [facility] [address] [place] [address] Dr. Sarah Napoles Bilirubin [Mass/Vol] 0.3 mg/dL Normal 0.2-1.0 [facility] Comment on above: Performed By: #### L IPID, CMP, URIC #### [facility] [address] [place] [address] Dr. Sarah Napoles Calcium [Mass/Vol] 9.8 mg/dL Normal 8.5-10.1 [facility] Comment on above: Performed By: #### L IPID, CMP, URIC #### [facility] [address] [place] [address] Dr. Sarah Napoles Chloride [Moles/Vol] 101 mmol/L Normal 98-107 [facility] Comment on above: Performed By: #### L IPID, CMP, URIC #### [facility] [address] [place] [address] Dr. Sarah Napoles CO2 [Moles/Vol] 29.5 mmol/L Normal 21.0-32.0 [facility] Comment on above: Performed By: #### L IPID, CMP, URIC #### [facility] [address] [place] [address] Dr. Sarah Napoles Creatinine [Mass/Vol] 0.63 mg/dL Normal 0.55-1.02 [facility] Comment on above: Performed By: #### L IPID, CMP, URIC #### [facility] [address] [place] [address] Dr. Sarah Napoles EGFR-AF CYPRIOT >60 Normal >=60 [facility] Comment on above: Performed By: #### L IPID, CMP, URIC #### [facility] [address] [address] [address] Sarah Napoles EGFR-NON AF CYPRIOT >60 Normal >=60 [facility] Comment on above: Performed By: #### L IPID, CMP, URIC #### [facility] [address] [address] [address] Sarah Napoles Globulin (S) [Mass/Vol] 3.4 g/dL Normal [facility] Comment on above: Performed By: #### L IPID, CMP, URIC #### [facility] [address] [address] [address] Sarah Napoles Glucose [Mass/Vol] 92 mg/dL Normal 74-106 [facility] Comment on above: Performed By: #### L IPID, CMP, URIC #### [facility] [address] [place] [address] Dr. Sarah Napoles Potassium [Moles/Vol] 4.3 mmol/L Normal 3.5-5.1 [facility] Comment on above: Performed By: #### L IPID, CMP, URIC #### [facility] [address] [address] [address] Sarah Napoles Protein [Mass/Vol] 7.7 g/dL Normal 6.4-8.[address] [facility] Comment on above: Performed By: #### L IPID, CMP, URIC #### [facility] [address] [address] [address] Sarah Napoles Sodium [Moles/Vol] 138 mmol/L Normal 136-[address] [facility] Comment on above: Performed By: #### L IPID, CMP, URIC #### [facility] [address] [address] [address] Sarah Napoles Urea nitrogen [Mass/Vol] 25.0 mg/dL Critically high 7.0-18.0 [facility] Comment on above: Performed By: #### L IPID, CMP, URIC #### [facility] [address] [address] [address] Saarh Napoles Urea nitrogen/Creatinine [Mass ratio] 39.7 mg/mg Normal [facility] Comment on above: Performed By: #### L IPID, CMP, URIC #### [facility] [address] [place], [place] [address] Dr. Sarah Napoles URIC ACID SERUMon 12-15-2022 Urate [Mass/Vol] 3.7 mg/dL Normal 2.6-6.0 [facility] [place] [facility] Comment on above: Performed By: #### L IPID, CMP, URIC ####[facility] [address] [place], [place] [address]. Sarah Napoles CT LUNG CANCER SCREENINGon 1 [...] by: JOVANNI MILLAN Date: 2022-07-21 22:18 Normal [facility] CBC AUTO DIFFon 06-16-2022 BASO # 0.1 103/ul Normal 0.0-0.1 [facility] Comment on above: Performed By: #### C BC ####[facility] [address] [place], [place] [address]XrDr. Sarah Napoles Basophils/100 WBC (Bld) 0.9 % Normal 0.2-2.0 [facility] Comment on above: Performed By: #### C BC ####[facility] [address] [place] [address]Dr. Sarah Napoles EO # 0.2 103/ul Normal 0.0-0.7 [facility] Comment on above: Performed By: #### C BC ####[facility] [address] [place] [address]Dr. Sarah Napoles Eosinophils/100 WBC (Bld) 2.5 % Normal 0.9-7.0 [facility] Comment on above: Performed By: #### C BC ####[facility] [address] [place], [place] [address]Dr. Sarah Napoles Erythrocyte distribution width (RBC) [Ratio] 13.4 % Normal 11.0-15.0 [facility] Comment on above: Performed By: #### C BC ####[facility] [address] [place], [place] [address]Dr. Sarah Napoles Hematocrit (Bld) [Volume fraction] 33.3 % Critically low 36.0-48.0 [facility] Comment on above: Performed By: #### C BC ####[facility] [address] [place], [place] [address]Dr. Sarah Napoles Hemoglobin (Bld) [Mass/Vol] 10.8 g/dL Critically low 12.0-16.0 [facility] Comment on above: Performed By: #### C BC ####[facility] [address] [place], [place] [address]Dr. Sarah Napoles IG # 0.03 10e3/ul Normal 0.00-0.03 [facility] Comment on above: Performed By: #### C BC ####[facility] [address] [place] [address]Dr. Sarah Napoles IG % 0.4 % Normal 0.0-0.5 [facility] Comment on above: Performed By: #### C BC ####[facility] [address] [place], [place] [address]Dr. Sarah Napoles LYMPH # 1.7 103/ul Normal 1.2-3.8 [facility] Comment on above: Performed By: #### C BC ####[facility] [address] [place] [id number]. Sarah Dony Lymphocytes/100 WBC (Bld) 20.4 % Critically low 20.5-60.0 [facility] Comment on above: Performed By: #### C BC ####[facility] [address] [place] [id number]. Sarah Dony MANUAL DIFF REQ NO Normal [facility] Comment on above: Performed By: #### C BC ####[facility] [address]sz[address] [place] [address]Dr. Sarah Dony MCH (RBC) [Entitic mass] 32.0 pg Normal 26.7-34.0 [facility] Comment on above: Performed By: #### C BC ####[facility] [address] [place] [address]Dr. Sarah Dony MCHC (RBC) [Mass/Vol] 32.4 g/dL Normal 29.9-35.2 [facility] Comment on above: Performed By: #### C BC ####[facility] [address] [place] [address]Dr. Sarah Dony MCV (RBC) [Entitic vol] 98.8 fL Normal 81.0-99.0 [facility] Comment on above: Performed By: #### C BC ####[facility] [address] [place] [address]Dr. Charlinecassie Dony MONO # 0.9 103/ul Critically high 0.3-0.8 [facility] Comment on above: Performed By: #### C BC ####[facility] [id number] [place] [address]Dr. Charlinecassie Napoles Monocytes/100 WBC (Bld) 11.0 % Normal 1.7-12.0 The [facility] Comment on above: Performed By: #### C BC ####[facility] [id number] [place] [address]Dr. Sarah Napoles NEUT # 5.3 103/ul Normal 1.4-6.5 The [facility] Comment on above: Performed By: #### C BC ####[facility] [id number] [place] [id number]. Sarah Napoles Neutrophils/100 WBC (Bld) 64.8 % Normal 43.0-75.0 The [facility] Comment on above: Performed By: #### C BC ####[facility] [id number] [place] [id number]. Sarah Napoles Platelet mean volume (Bld) [Entitic vol] 10.8 fL Normal 9.5-13.5 The [facility] Comment on above: Performed By: #### C BC ####[facility] [id number] [place] [id number]. Sarah Napoles PLT 262 103/ul Normal 150-450 The [facility] Comment on above: Performed By: #### C BC ####[facility] [id number] [place] [id number]. Sarah Napoles RBC 3.37 106/ul Critically low 4.20-5.40 [facility] Comment on above: Performed By: #### C BC ####[facility] [id number] [place] [id number]. Sarah Napoles WBC 8.1 103/ul Normal 4.0-11.0 The [facility] Comment on above: Performed By: #### C BC ####[facility] [id number] [place] [phone]. Sarah Napoles GLYCOHEMOGLOBIN A1Con 2021 ADA RECOMMENDATION SEE BELOW Normal [facility] Comment on above: Result Comment: ADA RECOMMENDED LIMIT 4.0 - 6.0 ADA THERAPEUTIC TARGET < 7.0 ACTION SUGGESTED > 7.0 Performed By: #### A 1C ####[facility] [id number] [place] [phone]. Sarah Napoles Glucose [Mass/Vol] 108 mg/dL Normal [facility] Comment on above: Performed By: #### A 1C ####[facility] [id number] [place] [phone]. Sarah Napoles HbA1c (Bld) [Mass fraction] 5.4 % Normal 4.5-6.2 The [facility] Comment on above: Performed By: #### A 1C ####[facility] [id number] [place], [place] [address]Dr. Sarah Napoles LIPID PROFILEon 06-16-2022 CHOL-HDL RATIO NORM SEE BELOW Normal [facility] Comment on above: Result Comment: 3.3 - 4.4 LOW RISK 4.4 - 7.1 AVERAGE RISK 7.1 - 11.0 MODERATE RISK >11.0 HIGH RISK Performed By: #### C MP, LIPID #### [facility] Laboratory [address] [place] [address] [address] Sarah Napoles Cholesterol [Mass/Vol] 147 mg/dL Normal <=200 [facility] Comment on above: Performed By: #### C MP, LIPID #### [facility] [address] [place] [address] [address] Sarah Napoles Cholesterol in HDL [Mass/Vol] 58 mg/dL Normal 40-60 [facility] Comment on above: Performed By: #### C MP, LIPID #### [facility] [address] [address] [address] Sarah Napoles Cholesterol in LDL [Mass/Vol] 68.0 mg/dL Normal [facility] Comment on above: Performed By: #### C MP, LIPID #### [facility] Laboratory [address] [place] [address] [address] Sarah Napoles Cholesterol.total/Ch olesterol in HDL [Mass ratio] 2.5 {ratio} Normal [facility] Comment on above: Performed By: #### C MP, LIPID #### [facility] Laboratory [address] [address] [address] Sarah Napoles HDL NORMAL > or = 60 mg/dl - LO W CARDIOVASCULAR RISK <40 mg/dl - HIGH CARDIOVASCULAR RISK Normal [facility] Comment on above: Performed By: #### C MP, LIPID #### [facility] [address] [address] [address] Sarah Napoles LDL CALC NORMAL SEE BELOW Normal [facility] Comment on above: Result Comment: <100 mg/dl OPTIMAL 100 - 129 mg/dl NEAR OR ABOVE OPTIMAL 130 - 159 mg/dl BORDERLINE HIGH 160 - 189 mg/dl HIGH >190 mg/dl VERY HIGH Performed By: #### C MP, LIPID #### [facility] [address] [place] [address] Dr. Sarah Napoles Triglyceride [Mass/Vol] 105 mg/dL Normal <=150 [facility] Comment on above: Performed By: #### C MP, LIPID #### [facility] [address] [place] [address] Dr. Sarah Napoles VLDL CALC 21.0 mg/dL Normal [facility] Comment on above: Performed By: #### C MP, LIPID #### [facility] [address] [address] [address] Sarah Napoles PROF 14(COMP METB)on 022 Albumin [Mass/Vol] 4.0 g/dL Normal 3.4-5.0 [facility] Comment on above: Performed By: #### C MP, LIPID #### [facility] [address] [place] [address] Dr. Sarah Napoles Albumin/Globulin [Mass ratio] 1.2 {ratio} Normal [facility] Comment on above: Performed By: #### C MP, LIPID #### [facility] [address] [place] [address] Dr. Sarah Napoles ALP [Catalytic activity/Vol] 53 U/L Normal 46-116 [facility] Comment on above: Performed By: #### C MP, LIPID #### [facility] [address] [place] [address] Dr. Sarah Napoles ALT [Catalytic activity/Vol] 32 U/L Normal 14-59 [facility] Comment on above: Performed By: #### C MP, LIPID #### [facility] [address] [place] [address] Dr. Sarah Napoles Anion gap [Moles/Vol] 8.0 mmol/L Normal [facility] Comment on above: Performed By: #### C MP, LIPID #### [facility] [address] [address] [address] Sarah Napoles AST [Catalytic activity/Vol] 23 U/L Normal 15-37 [facility] Comment on above: Performed By: #### C MP, LIPID #### [facility] [address] [place] [address] [address] Sarah Napoles Bilirubin [Mass/Vol] 0.4 mg/dL Normal 0.2-1.0 [facility] Comment on above: Performed By: #### C MP, LIPID #### [facility] [address] [place] [address] Dr. Sarah Napoles Calcium [Mass/Vol] 9.4 mg/dL Normal 8.5-10.1 [facility] Comment on above: Performed By: #### C MP, LIPID #### [facility] [address] [place] [address] Dr. Sarah Napoles Chloride [Moles/Vol] 100 mmol/L Normal 98-107 [facility] Comment on above: Performed By: #### C MP, LIPID #### [facility] [address] [place] [address] Dr. Sarah Napoles CO2 [Moles/Vol] 30.8 mmol/L Normal 21.0-32.0 [facility] Comment on above: Performed By: #### C MP, LIPID #### [facility] [address] [place] [address] Dr. Sarah Napoles Creatinine [Mass/Vol] 0.68 mg/dL Normal 0.55-1.02 [facility] Comment on above: Performed By: #### C MP, LIPID #### [facility] [address] [place] [address] Dr. Sarah Napoles EGFR-AF CYPRIOT >60 Normal >=60 The [facility] Comment on above: Performed By: #### C MP, LIPID #### [facility] [address] [place] [address] Dr. Sarah Napoles EGFR-NON AF CYPRIOT >60 Normal >=60 [facility] Comment on above: Performed By: #### C MP, LIPID #### [facility] [address] [place] [address] Dr. Sarah Napoles Globulin (S) [Mass/Vol] 3.3 g/dL Normal [facility] Comment on above: Performed By: #### C MP, LIPID #### [facility] [address] [place] [address] [address] Sarah Napoles Glucose [Mass/Vol] 90 mg/dL Normal 74-106 [facility] Comment on above: Performed By: #### C MP, LIPID #### [facility] [address] [place] [address] [address] Sarah Napoles Potassium [Moles/Vol] 3.8 mmol/L Normal 3.5-5.1 [facility] Comment on above: Performed By: #### C MP, LIPID #### [facility] [address] [address] [address] Sarah Napoles Protein [Mass/Vol] 7.3 g/dL Normal 6.4-8.2 [facility] Comment on above: Performed By: #### C MP, LIPID #### [facility] [address] [place] [address] Dr. Sarah Napoles Sodium [Moles/Vol] 135 mmol/L Critically low 136-145 [facility] Comment on above: Performed By: #### C MP, LIPID #### [facility] [address] [address] [address] Sarah Napoles Urea nitrogen [Mass/Vol] 13.0 mg/dL Normal 7.0-18.0 [facility] Comment on above: Performed By: #### C MP, LIPID #### [facility] [address] [address] [address] Sarah Napoles Urea nitrogen/Creatinine [Mass ratio] 19.1 mg/mg Normal [facility] Comment on above: Performed By: #### C MP, LIPID #### [facility] [address] [address] [address] Sarah Napoles POC GLUCOSE LABon 01-03-2021 Glucose [Mass/Vol] 119 mg/dL High 70-100 The [facility] Comment on above: Performed By: #### 8 [id number] #### [facility] [address] [place] [address], [facility] Glucose [Mass/Vol] 145 mg/dL High 70-100 [facility] Comment on above: Performed By: #### 8 5499 #### [facility] [address] [place] [address], [place] Glucose [Mass/Vol] 93 mg/dL Normal 70-100 [facility] Comment on above: Performed By: #### 8 [id number] #### [facility] [address] [place] [address], [place] Glucose [Mass/Vol] 99 mg/dL Normal 70-100 [facility] Comment on above: Performed By: #### 8 [id number] #### [facility] [address] [place] [address], [place] POC GLUCOSE LABon 01-02-2021 Glucose [Mass/Vol] 101 mg/dL High 70-100 [facility] Comment on above: Performed By: #### 8 [id number] #### [facility] [address] [place] [address], [place] Glucose [Mass/Vol] 127 mg/dL High 70-100 [facility] Comment on above: Performed By: #### 8 [id number] #### [facility] [address] [place] [address], [place] Glucose [Mass/Vol] 110 mg/dL High 70-100 [facility] Comment on above: Performed By: #### 8 [id number] #### [facility] [address] [place] [address], [place] BASIC METABOLIC PANELon 3 Calcium [Mass/Vol] 8.4 mg/dL Low 8.6-10.3 [facility] Comment on above: Order Comment: No: D o not add to previous draw Performed By: #### 8 [id number] #### [facility] [address] [place] [address], [place] Chloride [Moles/Vol] 106 mmol/L Normal 98-107 The [facility] Comment on above: Order Comment: No: D o not add to previous draw Performed By: #### 8 [id number] #### [facility] [address] [place] [address], [place] CO2 [Moles/Vol] 29 mmol/L Normal 21-31 The [facility] Comment on above: Order Comment: No: D o not add to previous draw Performed By: #### 8 [id number] #### [facility] [address] [place] [address], [place] Creatinine [Mass/Vol] 0.50 mg/dL Low 0.60-1.20 The [facility] Comment on above: Order Comment: No: D o not add to previous draw Performed By: #### 8 [id number] #### [facility] [address] [place] [address], [place] GFR/1.73 sq M.predicted among blacks MDRD (S/P/Bld) [Vol rate/Area] mL/min/{1.73_m2} Normal >60 The [facility] Comment on above: Order Comment: No: D o not add to previous draw Performed By: #### 8 [id number] #### [facility] [address] [place] [address], [place] GFR/1.73 sq M.predicted among non-blacks MDRD (S/P/Bld) [Vol rate/Area] mL/min/{1.73_m2} Normal >60 The [facility] Comment on above: Order Comment: No: D o not add to previous draw Performed By: #### 8 [id number] #### [facility] [address] [place] [address], [place] Glucose [Mass/Vol] 88 mg/dL Normal 70-100 [facility] Comment on above: Order Comment: No: D o not add to previous draw Performed By: #### 8 [id number] #### [facility] [address] [place] [address], [place] Potassium [Moles/Vol] 3.3 mmol/L Low 3.5-5.1 The [facility] Comment on above: Order Comment: No: D o not add to previous draw Performed By: #### 8 [id number] #### [facility] [address] [place] [address], [facility] Sodium [Moles/Vol] 141 mmol/L Normal 136-145 The [facility] Comment on above: Order Comment: No: D o not add to previous draw Performed By: #### 8 [id number] #### [facility] [address] [place] [address], [facility] Urea nitrogen [Mass/Vol] 10 mg/dL Normal 7-25 The [facility] Comment on above: Order Comment: No: D o not add to previous draw Performed By: #### 8 [id number] #### [facility] [address] [facility] [place] [address], [facility] CBC W/DIFFon 01-01-2021 ABS IMM GRANS 0.1 10*3/uL Normal 0.0-0.2 The [facility] Comment on above: Order Comment: No: D o not add to previous draw Performed By: #### 5 0103 #### [facility] [address] [place] [address], [facility] ABS NEUTROPHILS 10.1 10*3/uL High 1.6-7.6 The [facility] Comment on above: Order Comment: No: D o not add to previous draw Performed By: #### 5 0103 #### [facility] [address] [place] [id number], [facility] Basophils (Bld) [#/Vol] 0.0 10*3/uL Normal 0.0-0.2 The [facility] Comment on above: Order Comment: No: D o not add to previous draw Performed By: #### 5 0103 #### [facility] [address] [place] [address], [facility] Basophils/100 WBC (Bld) 0.2 % Normal 0.0-1.0 The [facility] Comment on above: Order Comment: No: D o not add to previous draw Performed By: #### 5 0103 #### [facility] [address] [place] [address], [facility] Eosinophils (Bld) [#/Vol] 0.0 10*3/uL Normal 0.0-0.5 The [facility] Comment on above: Order Comment: No: D o not add to previous draw Performed By: #### 5 0103 #### [facility] [address] [place] [address], [facility] Eosinophils/100 WBC (Bld) 0.1 % Normal 0.0-6.0 The [facility] Comment on above: Order Comment: No: D o not add to previous draw Performed By: #### 5 0103 #### [facility] [address] [place] [address], [facility] Erythrocyte distribution width (RBC) [Ratio] 13.1 % Normal 11.5-15.0 The [facility] Comment on above: Order Comment: No: D o not add to previous draw Performed By: #### 5 0103 #### [facility] [address] [place] [address], [facility] Hematocrit (Bld) [Volume fraction] 27.7 % Low 36.0-45.0 The [facility] Comment on above: Order Comment: No: D o not add to previous draw Performed By: #### 5 0103 #### [facility] [address] [place] [id number], [facility] Hemoglobin (Bld) [Mass/Vol] 9.2 g/dL Low 12.0-15.0 The [facility] Comment on above: Order Comment: No: D o not add to previous draw Result Comment: RESU LTS CHECKED Performed By: #### 5 0103 #### [facility] [address] IMMATURE GRANS 0.4 % Normal 0.0-1.0 The [facility] Comment on above: Order Comment: No: D o not add to previous draw Performed By: #### 5 0103 #### [facility] [address] [place] [address], [facility] Lymphocytes (Bld) [#/Vol] 1.8 10*3/uL Normal 1.2-4.0 The [facility] Comment on above: Order Comment: No: D o not add to previous draw Performed By: #### 5 0103 #### [facility] [address] Lymphocytes/100 WBC (Bld) 13.6 % Low 20.0-45.0 The [facility] Comment on above: Order Comment: No: D o not add to previous draw Performed By: #### 5 0103 #### [facility] [address] MCH (RBC) [Entitic mass] 32.4 pg Normal 27.0-33.0 The [facility] Comment on above: Order Comment: No: D o not add to previous draw Performed By: #### 5 0103 #### [facility] [address] MCHC (RBC) [Mass/Vol] 33.2 g/dL Normal 32.0-35.0 The [facility] Comment on above: Order Comment: No: D o not add to previous draw Performed By: #### 5 0103 #### [facility] [address] [place] [address], [facility] MCV (RBC) [Entitic vol] 97.5 fL Normal 82.0-98.0 The [facility] Comment on above: Order Comment: No: D o not add to previous draw Performed By: #### 5 0103 #### [facility] [address] [facility] [place] [address], [facility] Monocytes (Bld) [#/Vol] 1.4 10*3/uL High 0.1-1.0 The [facility] Comment on above: Order Comment: No: D o not add to previous draw Performed By: #### 5 0103 #### [facility] [address] [place] [address], [place] MONOS 10.1 % Normal 5.0-12.0 The [facility] Comment on above: Order Comment: No: D o not add to previous draw Performed By: #### 5 0103 #### [facility] [address] [place] [id number], [place] Neutrophils/100 WBC (Bld) 75.6 % High 40.0-72.0 The [facility] Comment on above: Order Comment: No: D o not add to previous draw Performed By: #### 5 0103 #### [facility] [address] [place] [id number], [facility] Nucleated RBC/100 WBC (Bld) [Ratio] 0 % Normal 0-0 The [facility] Comment on above: Order Comment: No: D o not add to previous draw Performed By: #### 5 0103 #### [facility] [address] [place] [address], [place] PLAT CNT 237 10*3/uL Normal 150-400 The [facility] Comment on above: Order Comment: No: D o not add to previous draw Performed By: #### 5 0103 #### [facility] [address] [place] [address], [place] RBC (Bld) [#/Vol] 2.84 10*6/uL Low 3.80-5.00 The [facility] Comment on above: Order Comment: No: D o not add to previous draw Performed By: #### 5 0103 #### [facility] [address] [place] [address], [place] WBC (Bld) [#/Vol] 13.43 10*3/uL High 4.00-10.60 The [facility] Comment on above: Order Comment: No: D o not add to previous draw Performed By: #### 5 0103 #### [facility] [address] [place] [address], [place] POC GLUCOSE LABon 01-01-2021 Glucose [Mass/Vol] 115 mg/dL High 70-100 The [facility] Comment on above: Performed By: #### 8 5499 #### [facility] [address] [place] [address], [place] Glucose [Mass/Vol] 110 mg/dL High 70-100 The [facility] Comment on above: Performed By: #### 8 5499 #### [facility] [address] [facility] [place] [address], [place] Glucose [Mass/Vol] 111 mg/dL High 70-100 The [facility] Comment on above: Performed By: #### 8 5499 #### [facility] [address] [place] [address], [place] Glucose [Mass/Vol] 102 mg/dL High 70-100 The [facility] Comment on above: Performed By: #### 8 5499 #### [facility] [address] [facility] [place] [address], [facility] HIP RIGHT 1 OR 2 VWS WITH PE LVISon 12-31-2020 HIP RIGHT 1 OR 2 VWS WITH PELVIS [facility] Department of Radiology [address] [place] [id number] Patient Name: BLANCA ENRIQUEZ DOB: 1960 Sex: F Age: Race: White Pt. [...] reports Electronically signed: Panda Smith. Transcribed by: [email or web address], User Resident: SCHUYLER RODRIGUES Electronically Signed by: PANDA SMITH @ 12/31/2020 04:29 PM I personally read this/these film(s) with this resident Normal The [facility] Comment on above: Order Comment: RIGHT ANTERIOR TOTAL HIP REPLACEMENT Operative Reporton Operative Report MR#: [id number] I [facility] Pt. Name: Blanca Enriquez Room #: [id number] Discharge Date: Birthdate: 1960 OPERATIVE REPORT DATE [...] right hip pain despite nonoperative measures. Has [id number] osteoarthritis of the right hip with subchondral [...] Roberts M.D. Date Trans: 12/31/2020 09:28 P/mmo [id number] Normal The [facility] POC GLUCOSE LABon 12-31-2020 Glucose [Mass/Vol] 167 mg/dL High 70-100 The [facility] Comment on above: Performed By: #### 8 5499 #### [facility] [address] [place] [address], [place] Glucose [Mass/Vol] 162 mg/dL High 70-100 The [facility] Comment on above: Performed By: #### 8 5499 #### [facility] [address] [place] [address], [place] Glucose [Mass/Vol] 168 mg/dL High 70-100 The [facility] Comment on above: Performed By: #### 8 5499 #### [facility] [address] [facility] [place] [address], [facility] Glucose [Mass/Vol] 104 mg/dL High 70-100 [facility] Comment on above: Performed By: #### 8 5499 #### [facility] [address] [facility] [place] [address], [facility] PORTABLE HIP RIGHT 1 OR 2 VW S WITH PELVISon 12-31-2020 PORTABLE HIP RIGHT 1 OR 2 VWS WITH PELVIS [facility] Department of Radiology [address] [place] [id number] Patient Name: BLANCA ENRIQUEZ : 1960 Sex: [...] fracture Electronically signed: Panda Smith. Transcribed by: [email or web address], User Resident: Electronically Signed by: PANDA SMITH @ 12/31/2020 01:05 PM Normal The [facility] Comment on above: Order Comment: Hardw are Evaluation, PACU *MRSA/MSSA DNA NASALon 12-10 *MRSA/MSSA DNA NASAL Clinical Report: (D ) Specimen: NASAL SWAB Collected: 12/10/2020 13:55 Status: Final Last Updated: 12/11/2020 15:48 MSSA DNA (Final) Negative MRSA DNA (Final) Negative Normal The [facility] Comment on above: Performed By: #### 8 [id number] #### [facility] [address] CBC W/DIFFon 12-10-2020 ABS IMM GRANS 0.0 10*3/uL Normal 0.0-0.2 The [facility] Comment on above: Performed By: #### 8 [id number] #### [facility] [address] ABS NEUTROPHILS 7.7 10*3/uL High 1.6-7.6 The [facility] Comment on above: Performed By: #### 8 [id number] #### [facility] [address] [place] [address], [facility] Basophils (Bld) [#/Vol] 0.1 10*3/uL Normal 0.0-0.2 The [facility] Comment on above: Performed By: #### 8 [id number] #### [facility] [address] Basophils/100 WBC (Bld) 0.6 % Normal 0.0-1.0 The [facility] Comment on above: Performed By: #### 8 [id number] #### [facility] 3000 [facility]. [address] Eosinophils (Bld) [#/Vol] 0.1 10*3/uL Normal 0.0-0.5 The [facility] Comment on above: Performed By: #### 8 [id number] #### [facility] 3000 [facility] [place] [address], [facility] Eosinophils/100 WBC (Bld) 1.0 % Normal 0.0-6.0 The [facility] Comment on above: Performed By: #### 8 [id number] #### [facility] 3000 [facility]. [address] Erythrocyte distribution width (RBC) [Ratio] 13.0 % Normal 11.5-15.0 The [facility] Comment on above: Performed By: #### 8 [id number] #### [facility] 3000 [facility]. [address] Hematocrit (Bld) [Volume fraction] 36.2 % Normal 36.0-45.0 The [facility] Comment on above: Performed By: #### 8 [id number] #### [facility] 3000 [facility]. [address] Hemoglobin (Bld) [Mass/Vol] 11.9 g/dL Low 12.0-15.0 The [facility] Comment on above: Performed By: #### 8 [id number] #### [facility] 3000 [facility]. [address] IMMATURE GRANS 0.3 % Normal 0.0-1.0 The [facility] Comment on above: Performed By: #### 8 [id number] #### [facility] 3000 [facility] [place] [address], [facility] Lymphocytes (Bld) [#/Vol] 1.5 10*3/uL Normal 1.2-4.0 The [facility] Comment on above: Performed By: #### 8 [id number] #### [facility] [address] [facility] [place] [address], [facility] Lymphocytes/100 WBC (Bld) 15.1 % Low 20.0-45.0 The [facility] Comment on above: Performed By: #### 8 [id number] #### [facility] 3000 [facility] [place] [address], [facility] MCH (RBC) [Entitic mass] 31.9 pg Normal 27.0-33.0 The [facility] Comment on above: Performed By: #### 8 [id number] #### [facility] [address] [facility] [place] [address], [facility] MCHC (RBC) [Mass/Vol] 32.9 g/dL Normal 32.0-35.0 The [facility] Comment on above: Performed By: #### 8 [id number] #### [facility] [address] [facility] [place] [place] [address], [facility] MCV (RBC) [Entitic vol] 97.1 fL Normal 82.0-98.0 The [facility] Comment on above: Performed By: #### 8 [id number] #### [facility] 3000 [facility] [place] [address], [facility] Monocytes (Bld) [#/Vol] 0.7 10*3/uL Normal 0.1-1.0 The [facility] Comment on above: Performed By: #### 8 [id number] #### [facility] [address] [facility] [place] [address], [facility] MONOS 7.3 % Normal 5.0-12.0 The [facility] Comment on above: Performed By: #### 8 [id number] #### [facility] 3000 [facility] [place] [address], [facility] Neutrophils/100 WBC (Bld) 75.7 % High 40.0-72.0 The [facility] Comment on above: Performed By: #### 8 [id number] #### [facility] 3000 [facility] [place] [address], [facility] Nucleated RBC/100 WBC (Bld) [Ratio] 0 % Normal 0-0 [facility] Comment on above: Performed By: #### 8 [id number] #### [facility] 3000 [facility] [place] [address], [facility] PLAT CNT 290 10*3/uL Normal 150-400 The [facility] Comment on above: Performed By: #### 8 [id number] #### [facility] [address] [facility] [place] [address], [facility] RBC (Bld) [#/Vol] 3.73 10*6/uL Low 3.80-5.00 The [facility] Comment on above: Performed By: #### 8 [id number] #### [facility] 3000 [facility] [place] [address], [facility] WBC (Bld) [#/Vol] 10.11 10*3/uL Normal 4.00-10.60 [facility] Comment on above: Performed By: #### 8 [id number] #### [facility] [address] [place] [address], [facility] HEMOGLOBIN A1Con 12-10-2020 Glucose [Moles/Vol] 108 mmol/L Normal The [facility] Comment on above: Performed By: #### 3 [id number] #### [facility] 3000 [facility] [place] [address], [facility] HbA1c (Bld) [Mass fraction] 5.4 % Normal 4.0-6.0 The [facility] Comment on above: Performed By: #### 3 1791 #### [facility] [address] [place] [address], [facility] HIP RIGHT 1 OR 2 VWS WITH PE LVISon 11-22-2020 HIP RIGHT 1 OR 2 VWS WITH PELVIS [facility] Department of Radiology [address] [place] [id number] Patient Name: BLANCA ENRIQUEZ : 1960 Sex: F Age: Race: White Pt. Location: 82 Patient Status: O Ordered Date: 11/22/2020 3:00:00 [...] exam. Electronically signed: Rodney Sutherland. Transcribed by: [email or web address], User Resident: Electronically Signed by: RODNEY SUTHERLAND @ 11/22/2020 03:43 PM Normal [facility] Comment on above: Order Comment: Evalu ate Encounters Encounter Date Encounter Type Care Provider Facility Start: 06-14-2024 End: 06-14-2024 ambulatory MAISHA LARSONTRICK Not Available Start: 05-02-2024 End: 05-02-2024 ambulatory Chikis May MD Facility: [facility] Start: 03-15-2024 End: 03-15-2024 ambulatory WHITFIELD FAWWAD Not Available Start: 12-10-2023 End: 12-10-2023 ambulatory WHITFIELD FAWWAD Not Available Start: 11-12-2023 Orders Only Shaikh Reyes PALACIO Work Phone: [facility] Comment on above: Chronic left shoulde r pain; Chronic pain of left knee Start: 11-09-2023 End: 11-09-2023 ambulatory Chikis May MD Facility: [facility] Start: 09-08-2023 End: 09-08-2023 ambulatory SHAIKH LUCITAD Not Available Start: 09-08-2023 Patient encounter procedure Shaikh Reyes PALACIO Work Phone: [facility] Start: 06-29-2023 End: 06-29-2023 ambulatory Chikis May MD Facility: [facility] Start: 06-22-2023 End: 06-22-2023 ambulatory Chikis May MD Facility: [facility] Start: 03-03-2023 End: 03-04-2023 ambulatory H FAWWAD Facility:[facility] Start: 02-25-2023 End: 02-26-2023 ambulatory WHITFIELD H FAWWAD Facility:[facility] Start: 02-09-2023 End: 02-10-2023 ambulatory WH[facility]FIELD H FAWWAD Facility:[facility] Start: 02-02-2023 End: 02-03-2023 ambulatory WH[facility]FIELD H FAWWAD Facility:[facility] Start: 01-08-2023 End: 01-09-2023 ambulatory [facility] H FAWWAD Facility:[facility] Start: 12-17-2022 End: 12-18-2022 ambulatory [facility] H FAWWAD Facility:[facility] Start: 12-15-2022 End: 03-14-2023 ambulatory WH[facility]FIELD H FAWWAD Facility:[facility] Start: 07-21-2022 End: 07-22-2022 ambulatory WHITFIELD H GIOVANIQuyenMERLENE Facility:[facility] Start: 06-16-2022 End: 06-17-2022 ambulatory [facility] H REYES Facility:[facility] Start: 12-31-2020 End: 01-03-2021 ambulatory PHYSICIAN UNKNOWN Facility:[facility] Procedures Date Procedure Procedure Detail Performing Clinician [...] Visit [facility] [address] [place] [id number] Shaikh Chambers MD [address] [place] [id number] [facility] Start: 06-05-2023 Influenza vaccination [...] malign ant neoplasm of colon [facility] Immunizations Immunization Date Immunization Notes Care Provider Giovani fraser 10-01-2022 influenza virus vacc ine, unspecified formulation Shaikh Reyes PALACIO Work Phone: [facility] Payers Date Payer Category Payer Unknown 2021 Medicare ANTHEM MEDICARE ADVANTAGE ANTHEM MEDICARE ADVANTAGE [id number] 2021-Present [address] [place] [address] [id number] 1961 Unknown [id number] 1960 Unknown [id number] 2.16.840.1.381430.3.579.2.647 1960 Unknown [id number] 2.16.840.1.959745.3.579.2.593 1960 Unknown [id number] 2.16.840.1.301197.3.579.2.593 1960 Unknown [id number] 2.16.840.1.513301.3.579.2.593 1960 Unknown [id number] 2.16.840.1.215675.3.579.2.593 1960 Unknown [id number] 2.16.840.1.349546.3.579.2.593 1960 Unknown [id number] 2.16.840.1.719296.3.579.2.593 1960 Unknown [id number] 2.16.840.1.513351.3.579.2.593 1958 Unknown [id number] 2.16.840.1.114533.3.579.2.593 1958 Unknown [id number] 2.16.840.1.500277.3.579.2.593 1960 Unknown [id number] 2.16.840.1.448228.3.579.2.196 1960 Unknown [id number] 2.16.840.1.416996.3.579.2.196 1960 Unknown [id number] 2.16.840.1.354371.3.579.2.196 1960 Unknown [id number] 2.16.840.1.516701.3.579.2.196 1960 Unknown [id number] 2.16.840.1.271791.3.579.2.125 9 1960 Unknown [id number] 2.16.840.1.145535.3.579.2.125 9 1960 Unknown [id number] 2.16.840.1.883059.3.579.2.125 9 1960 Unknown [id number] 2.16.840.1.464941.3.579.2.125 9 Social History Date Type Detail Facility [...] to any clubs or organizations such as taoist groups, unions, fraternal or athletic groups, or [...] Not at all [facility] (I/We) worried wheth er (my/our) food would run out before (I/we) got money to buy more. Never true [facility] Start: 08-20-2023 Tobacco Comment Last smoked 1-5 year s [facility] Start: 09-08-2023 Alcohol Comment quit 10 years ago NO [facility] Start: 1960 Sex Assigned At Not [...] 16:26 The [facility] Evaluation note Note Date & Type Note [...] section and content) DATE CREATED AUTHOR 02/27/2021 [facility] DATE CREATED AUTHOR AUTHOR'S ORGANIZ ATION 03/13/2023 [facility] DATE CREATED AUTHOR AUTHOR'S ORGANIZ ATION 05/17/2024 [facility] DATE CREATED AUTHOR AUTHOR'S ORGANIZ ATION 06/16/2024 [facility] Care Teams (unrecognized sec tion and content) [employer] Relationship Specialty Start Date End Date Shaikh [...] BE BASED ON THE PRIMARY CLINICAL RECORDS. [facility] provides no warranty or guarantee of the accuracy or completeness of information in this document.
[2024-06-27 07:36] VITALS: BP 169/95; PULSE 63; TEMP 36.2; O2SAT 99
[2024-06-27 08:16] VITALS: BP 163/74; PULSE 70; PULSE 72; O2SAT 93; O2SAT 94
[2024-06-27 08:17] VITALS: BP 150/72
[2024-06-27] MEDS: BUPIVACAINE HCL 0.25% PF 25 MG/10 ML VIAL 5 ML INJ (08:17)
[2024-06-27] MEDS: TRIAMCINOLONE ACETONIDE 40 MG/ML VIAL 80 MG INJ (08:18)
[2024-06-27] MEDS: LIDOCAINE HCL 2% 400 MG/20 ML MDV 5 ML INJ (08:22)
--- NOTE | 2024-06-27 08:23 | P.ON_ITS ---
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 Informed consent was obtained and placed on the chart.? The patient was brought to the medical procedure unit and placed in the prone position. A timeout was completed verifying correct patient, procedure site, positioning, plan, and special equipment.? Using aseptic technique, under direct fluoroscopic visualization, a 20-gauge 15 cm with a 10 mm curved active tip radiofrequency cannula was advanced to the left superior portion of the posterior osseous rim of the glenoid fossa, lateral and superior to the spinal glenoid notch. Motor stimulation was carried out at 2 Hz up to 5 volts with the absence of extremity activity. Then radiofrequency lesioning was carried out for 90 seconds at 80 degrees.? The needle was then redirected 3 mm inferiorly and another lesioning was carried out for 90 seconds at 80 degree.? Using aseptic technique, under direct fluoroscopic visualization, another 20-gauge 15 cm with a 10 mm curved active t ip radiofrequency cannula was advanced toward the most inferior and lateral border of the greater tubercle. Motor stimulation was carried out at 2 Hz up to 5 volts with the absence of extremity activity. Then radiofrequency lesioning was carried out for 90 seconds at 80 degrees.? The needle was then redirected 3 mm inferiorly and another lesioning was carried out for 90 seconds at 80 degree.? The patient was taken to the postprocedural recovery area and monitored for an appropriate length of time before being found suitable for discharge in the accompaniment of a responsible adult. Anesthesia: Local Surgeon: Chikis May Pathology: none sent Condition: stable Disposition: no change
== END 2024-06-27 08:35 | disposition home or self-care (01) ==
LOC: SURGOUT 07:14
PROVIDERS: Visit Provider Anesthesiology
DX: M19.012 Primary osteoarthritis, left shoulder (principal); M25.512 Pain in left shoulder
CPT/HCPCS: 64640; 77002; J0665; J3301

== ENCOUNTER 2024-07-12 12:38 | Outpatient (OUT) | payer MEDICARE, SELFPAY ==
--- OUTSIDE RECORDS SUMMARY | 2024-07-12 12:48 | XMS_ITS | CCD ---
Author Organization 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 Name Role Phone UNKNOWN, PHYSICIAN Primary Care Unavailable UNKNOWN, PHYSICIAN Referring Unavailable HERMINIO ROBERTS Admitting Unavailable HERMINIO ROBERTS Attending Unavailable HERMINIO ROBERTS Surgeon Unavailable NC Procedure Practitioner Unavailab SHAIKH Garcia H Consulting [...] Unavailable Shaikh Chambers MD Primary Care Provider [phone] SHAIKH CHAMBERS Attending Unavailable SHAIKH CHAMBERS Attending Unavailable SHAIKH CHAMBERS Attending Unavailable MAISHA BRYANT Attending Unavailvivian May MD, Chikis Henderson Attending Unavailable Lalo PALACIO, Chikis Henderson Attending Unavailable Lalo PALACIO, Chikis Henderson Attending Unavailable Allergies Allergy Classification Reported Allergen(s) Allergy Type Date of Onset Reaction(s) Facility Aspirin (1 source) Aspirin; Translations: [ASPIRIN] Drug Allergy 12-26-2020 [facility] Repository (1 source) Amino Acids Drug Allergy [facility] Repository (1 source) Aspirin Drug Allergy [facility] Repository (1 source) Aluminum aspirin Drug [...] 1000 mg oral capsule (1 source) Evening [place] Oil 1000 MG capsule as directed Orally [...] DR MARIA ANTONIA CONRAD M.D. Admission #: [id number] Family : Order #: [id number] CLICK HERE TO VIEW EXAM RADIOLOGY REPORT [...] Conrad MD on 03/03/2023 at 13:46 Normal [facility] VC EXT VENOUS RT LIMITEDon 0 03-03-2023 VC EXT VENOUS RT LIMITED Patient: BLANCA ENRIQUEZ Exam Date: 03/03/2023 : 1960 Gender:F Ordering : DR MARIA ANTONIA CONRAD M.D. Admission #: [id number] Family : Order #: [id number] CLICK HERE TO VIEW EXAM RADIOLOGY REPORT [...] Conrad MD on 03/03/2023 at 13:10 Normal [facility] VC ENDOVENOUS ABL 1ST V RTon 02-25-2023 VC ENDOVENOUS ABL 1ST V RT Patient: BLANCA ENRIQUEZ Exam Date: 02/25/2023 : 1960 Gender:F Ordering : DR MARIA ANTONIA CONRAD M.D. Admission #: [id number] Family : Order #: [id number] CLICK HERE TO VIEW EXAM RADIOLOGY REPORT [...] Millan M.D. on 02/25/2023 at 15:01 Normal [facility] VC CONSULT FOLLOWUPon 2022 VC CONSULT FOLLOWUP Patient: BLANCA ENRIQUEZ Exam Date: 02/09/2023 : 1960 Gender:F Ordering : DR MARIA ANTONIA CONRAD M.D. Admission #: [id number] Family : Order #: [id number] CLICK HERE TO VIEW EXAM RADIOLOGY REPORT [...] Millan M.D. on 02/09/2023 at 11:43 Normal [facility] VC EXT VENOUS LT LIMITEDon 0 02-09-2023 VC EXT VENOUS LT LIMITED Patient: BLANCA ENRIQUEZJudy Exam Date: 02/09/2023 : 1960 Gender:F Ordering : DR MARIA ANTONIA CONRAD M.D. Admission #: [id number] Family : Order #: [id number] CLICK HERE TO VIEW EXAM RADIOLOGY REPORT [...] Millan M.D. on 02/09/2023 at 11:35 Normal [facility] VC ENDOVENOUS ABL 1ST V LTon 02-02-2023 VC ENDOVENOUS ABL 1ST V LT Patient: LUKE BLANCA L. Exam Date: 02/02/2023 : 1960 Gender:F Ordering : DR MARIA ANTONIA CONRAD M.D. Admission #: [id number] Family : Order #: [id number] CLICK HERE TO VIEW EXAM RADIOLOGY REPORT [...] Millan M.D. on 02/02/2023 at 14:17 Normal [facility] VC COMP CONSULTATIONon 01-08 VC COMP CONSULTATION Patient: BLANCA ENRIQUEZ Exam Date: 01/08/2023 : 1960 Gender:F Ordering : DR MARIA ANTONIA CONRAD M.D. Admission #: [id number] Family : Order #: [id number] CLICK HERE TO VIEW EXAM RADIOLOGY REPORT [...] saphenous, mild to moderate right small saphenous nfbp-ek-vwhizmhn left anterior accessory saphenous vein venous insufficiency [...] Conrad MD on 01/08/2023 at 15:14 Normal [facility] VC VENOUS REFLUX SARITHA LMTon 0 01-08-2023 VC VENOUS REFLUX SARITHA LMT Patient: BLANCA ENRIQUEZ Exam Date: 01/08/2023 : 1960 Gender:F Ordering : DR MARIA ANTONIA CONRAD M.D. Admission #: [id number] Family : Order #: [id number] CLICK HERE TO VIEW EXAM RADIOLOGY REPORT [...] chronic thrombus visualized Compressibility: Normal Flow: Normal Food Service: Dist/med calf 3.7 mm with 2.4s reflux. [...] Bilateral incompetent varicose veins 5. 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 Left suprapatellar fluid collection likely joint effusion and popliteal lesion likely a cyst Dictated by: Maria Antonia Conrad MD on 01/08/2023 at 13:50 Approved by: Maria Antonia Conrad MD on 01/08/2023 at 13:52 Normal [facility] XR KNEE SARITHA 4V or >on [...] by: JOVANNI MILLAN Date: 2022-12-17 16:24 Normal [facility] XR SHOULDER SARITHA 2V or >on [...] narrowing of the glenohumeral joints with likely zemm-wt-upyu contact. Degenerative osteophyte along the inferior articular [...] by: JOVANNI MILLAN Date: 2022-12-17 16:32 Normal [facility] CBC AUTO DIFFon 12-15-2022 BASO # 0.1 103/ul Normal 0.0-0.1 [facility] Comment on above: Performed By: #### C BC ####[facility] [address] [place], [place] [address]TuJudy Napoles Basophils/100 WBC (Bld) 0.8 % Normal 0.2-2.0 [facility] Comment on above: Performed By: #### C BC ####[facility] [address] [place], [place] [address]Dr. Sarah Napoles EO # 0.2 103/ul Normal 0.0-0.7 [facility] Comment on above: Performed By: #### C BC ####[facility] Cu[address] [place], [place] [address]Dr. Sarah Napoles Eosinophils/100 WBC (Bld) 2.3 % Normal 0.9-7.0 [facility] Comment on above: Performed By: #### C BC ####[facility] Bonuiojfbn[address] [place], [place] [address]Dr. Sarah Napoles Erythrocyte distribution width (RBC) [Ratio] 13.2 % Normal 11.0-15.0 [facility] Comment on above: Performed By: #### C BC ####[facility] [address] [place], [place] [address]Dr. Sarah Napoles Hematocrit (Bld) [Volume fraction] 34.3 % Critically low 36.0-48.0 [facility] Comment on above: Performed By: #### C BC ####[facility] [address] [place], [place] [address]Dr. Sarah Napoles Hemoglobin (Bld) [Mass/Vol] 11.5 g/dL Critically low 12.0-16.0 [facility] Comment on above: Performed By: #### C BC ####[facility] Auggykhdij[address] [place], [place] [address]Dr. Sarah Napoles IG # 0.02 10e3/ul Normal 0.00-0.03 [facility] Comment on above: Performed By: #### C BC ####[facility] Tdfmonccye[address] [place], [place] [address]Dr. Sarah Napoles IG % 0.2 % Normal 0.0-0.5 [facility] Comment on above: Performed By: #### C BC ####[facility] [address] [place], [place] [address]Dr. Sarah Napoles LYMPH # 1.8 103/ul Normal 1.2-3.8 [facility] Comment on above: Performed By: #### C BC ####[facility] [address] [place] [address]Dr. Sarah Napoles Lymphocytes/100 WBC (Bld) 19.8 % Critically low 20.5-60.0 [facility] Comment on above: Performed By: #### C BC ####[facility] [address] [place] [address]DrJudy Napoles MANUAL DIFF REQ NO Normal [facility] Comment on above: Performed By: #### C BC ####[facility] [address] [place] [address]DrJudy Napoles MCH (RBC) [Entitic mass] 32.2 pg Normal 26.7-34.0 [facility] Comment on above: Performed By: #### C BC ####[facility] [address] [place], [place] [address]Dr. Sarah Napoles MCHC (RBC) [Mass/Vol] 33.5 g/dL Normal 29.9-35.2 [facility] Comment on above: Performed By: #### C BC ####[facility] Ram[address] [place], [place] [address]DrJudy Napoles MCV (RBC) [Entitic vol] 96.1 fL Normal 81.0-99.0 [facility] Comment on above: Performed By: #### C BC ####[facility] Z[address] [place], [place] [address]DrJudy Napoles MONO # 0.8 103/ul Normal 0.3-0.8 [facility] Comment on above: Performed By: #### C BC ####[facility] [address]ywjb[address] [place], [place] [address]DrJudy Napoles Monocytes/100 WBC (Bld) 9.5 % Normal 1.7-12.0 [facility] Comment on above: Performed By: #### C BC ####[facility] Q[address]degkswxi[address] [place], [place] [address]DrJudy Napoles NEUT # 6.0 103/ul Normal 1.4-6.5 [facility] Comment on above: Performed By: #### C BC ####[facility] [address] [place] [address]Dr. Sarah Napoles Neutrophils/100 WBC (Bld) 67.4 % Normal 43.0-75.0 [facility] Comment on above: Performed By: #### C BC ####[facility] [address] [place] [address]Dr. Sarah Napoles Platelet mean volume (Bld) [Entitic vol] 10.1 fL Normal 9.5-13.5 [facility] Comment on above: Performed By: #### C BC ####[facility] [address] [place] [address]Dr. Sarah Napoles PLT 283 103/ul Normal 150-450 [facility] Comment on above: Performed By: #### C BC ####[facility] C[address]yav[address] [place], [place] [address]Dr. Sarah Napoles RBC 3.57 106/ul Critically low 4.20-5.40 [facility] Comment on above: Performed By: #### C BC ####[facility] [address]my[address]ak[address] [place], [place] [address]Dr. Sarah Napoles WBC 8.8 103/ul Normal 4.0-11.0 [facility] Comment on above: Performed By: #### C BC ####[facility] [address] [place], [place] [address]Dr. Sarah Napoles GLYCOHEMOGLOBIN A1Con 2022 ADA RECOMMENDATION SEE BELOW Normal [facility] Comment on above: Result Comment: ADA RECOMMENDED LIMIT 4.0 - 6.0 ADA THERAPEUTIC TARGET < 7.0 ACTION SUGGESTED > 7.0 Performed By: #### A 1C ####[facility] [address] [place], [place] [address]Dr. Sarah Napoles Glucose [Mass/Vol] 105 mg/dL Normal [facility] Comment on above: Performed By: #### A 1C ####[facility] [address] [place], [place] [address]DrJudy Napoles HbA1c (Bld) [Mass fraction] 5.3 % Normal 4.5-6.2 [facility] Comment on above: Performed By: #### A 1C ####[facility] [address] [place] [id number] Sarah Dony LIPID PROFILEon 12-15-2022 CHOL-HDL RATIO NORM SEE BELOW Normal [facility] Comment on above: Result Comment: 3.3 - 4.4 LOW RISK 4.4 - 7.1 AVERAGE RISK 7.1 - 11.0 MODERATE RISK >11.0 HIGH RISK Performed By: #### L IPID, CMP, URIC ####[facility] [address] [place] [id number] Napoles Cholesterol [Mass/Vol] 160 mg/dL Normal <=200 [facility] Comment on above: Performed By: #### L IPID, CMP, URIC ####[facility] [address] [place] [id number]. Sarah Napoles Cholesterol in HDL [Mass/Vol] 62 mg/dL Critically high 40-60 [facility] Comment on above: Performed By: #### L IPID, CMP, URIC ####[facility] [address] [place] [address]Dr. Sarah Napoles Cholesterol in LDL [Mass/Vol] 75.2 mg/dL Normal [facility] Comment on above: Performed By: #### L IPID, CMP, URIC ####[facility] [address] [place] [id number]. Sarah Napoles Cholesterol.total/Ch olesterol in HDL [Mass ratio] 2.6 {ratio} Normal [facility] Comment on above: Performed By: #### L IPID, CMP, URIC ####[facility] [address] [place] [id number]. Sarah Napoles HDL NORMAL > or = 60 mg/dl - LO W CARDIOVASCULAR RISK <40 mg/dl - HIGH CARDIOVASCULAR RISK Normal [facility] Comment on above: Performed By: #### L IPID, CMP, URIC ####[facility] [address] [place] [id number] Napoles LDL CALC NORMAL SEE BELOW Normal [facility] Comment on above: Result Comment: <100 mg/dl OPTIMAL 100 - 129 mg/dl NEAR OR ABOVE OPTIMAL 130 - 159 mg/dl BORDERLINE HIGH 160 - 189 mg/dl HIGH >190 mg/dl VERY HIGH Performed By: #### L IPID, CMP, URIC ####[facility] [address] [place], [place] [address]ClDr. Sarah Napoles Triglyceride [Mass/Vol] 114 mg/dL Normal <=150 [facility] Comment on above: Performed By: #### L IPID, CMP, URIC ####[facility] [address] [place], [place] [address]MrJudy Napoles VLDL CALC 22.8 mg/dL Normal [facility] Comment on above: Performed By: #### L IPID, CMP, URIC ####[facility] [address] [place] [id number]. Sarah Napoles PROF 14(COMP METB)on 023 Albumin [Mass/Vol] 4.3 g/dL Normal 3.4-5.[address] [facility] Comment on above: Performed By: #### L IPID, CMP, URIC #### [facility] [address] [place] [address] [address] Sarah Napoles Albumin/Globulin [Mass ratio] 1.3 {ratio} Normal [facility] Comment on above: Performed By: #### L IPID, CMP, URIC #### [facility] [address] [place] [address] [address] Sarah Napoles ALP [Catalytic activity/Vol] 71 U/L Normal 46-116 [facility] Comment on above: Performed By: #### L IPID, CMP, URIC #### [facility] [address] [place] [id number] Sarah Napoles ALT [Catalytic activity/Vol] 25 U/L Normal 14-59 [facility] Comment on above: Performed By: #### L IPID, CMP, URIC #### [facility] [address] [place] [address] [address] Sarah Napoles Anion gap [Moles/Vol] 11.8 mmol/L Normal [facility] Comment on above: Performed By: #### L IPID, CMP, URIC #### [facility] [address] [place] [address] [address] Sarah Napoles AST [Catalytic activity/Vol] 22 U/L Normal 15-37 [facility] Comment on above: Performed By: #### L IPID, CMP, URIC #### [facility] [address] [place] [address] Dr. Sarah Napoles Bilirubin [Mass/Vol] 0.3 mg/dL Normal 0.2-1.0 [facility] Comment on above: Performed By: #### L IPID, CMP, URIC #### [facility] [address] [place] [address] Dr. Sarah Napoles Calcium [Mass/Vol] 9.8 mg/dL Normal 8.5-10.[address] [facility] Comment on above: Performed By: #### L IPID, CMP, URIC #### [facility] [address] [place] [address] Dr. Sarah Napoles Chloride [Moles/Vol] 101 mmol/L Normal 98-107 [facility] Comment on above: Performed By: #### L IPID, CMP, URIC #### [facility] [address] [place] [address] Dr. Sarah Napoles CO2 [Moles/Vol] 29.5 mmol/L Normal 21.0-32.0 [facility] Comment on above: Performed By: #### L IPID, CMP, URIC #### [facility] [address] [place] [address] Dr. Sarah Napoles Creatinine [Mass/Vol] 0.63 mg/dL Normal 0.55-1.02 [facility] Comment on above: Performed By: #### L IPID, CMP, URIC #### [facility] [address] [place] [address] Dr. Sarah Napoles EGFR-AF CENTRAL AFRICAN >60 Normal >=60 [facility] Comment on above: Performed By: #### L IPID, CMP, URIC #### [facility] [address] [place] [address] [address] Sarah Napoles EGFR-NON AF CENTRAL AFRICAN >60 Normal >=60 [facility] Comment on above: Performed By: #### L IPID, CMP, URIC #### [facility] [address] [place] [address] [address] Sarah Napoles Globulin (S) [Mass/Vol] 3.4 g/dL Normal [facility] Comment on above: Performed By: #### L IPID, CMP, URIC #### [facility] [address] [place] [address] [address] Sarah Napoles Glucose [Mass/Vol] 92 mg/dL Normal 74-106 [facility] Comment on above: Performed By: #### L IPID, CMP, URIC #### [facility] [address] [place] [address] Dr. Sarah Napoles Potassium [Moles/Vol] 4.3 mmol/L Normal 3.5-5.1 [facility] Comment on above: Performed By: #### L IPID, CMP, URIC #### [facility] [address] [place] [address] Dr. Sarah Napoles Protein [Mass/Vol] 7.7 g/dL Normal 6.4-8.2 [facility] Comment on above: Performed By: #### L IPID, CMP, URIC #### [facility] [address] [place] [address] Dr. Sarah Napoles Sodium [Moles/Vol] 138 mmol/L Normal 136-145 [facility] Comment on above: Performed By: #### L IPID, CMP, URIC #### [facility] [address] [place] [address] Dr. Sarah Napoles Urea nitrogen [Mass/Vol] 25.0 mg/dL Critically high 7.0-18.0 [facility] Comment on above: Performed By: #### L IPID, CMP, URIC #### [facility] [address] [place] [address] Dr. Sarah Napoles Urea nitrogen/Creatinine [Mass ratio] 39.7 mg/mg Normal [facility] Comment on above: Performed By: #### L IPID, CMP, URIC #### [facility] [address] [place], [place] [address] Dr. Sarah Napoles URIC ACID SERUMon 12-15-2022 Urate [Mass/Vol] 3.7 mg/dL Normal 2.6-6.0 [facility] Comment on above: Performed By: #### L IPID, CMP, URIC ####[facility] [address] [place], [place] [address] CT LUNG CANCER SCREENINGon 1 [...] JOVANNI MILLAN Date: 2022-07-21 22:18 Normal [facility] CBC AUTO DIFFon 06-16-2022 BASO # 0.1 103/ul Normal 0.0-0.1 [facility] Comment on above: Performed By: #### C BC ####[facility] [address] [place] [id number]. Sarah Napoles Basophils/100 WBC (Bld) 0.9 % Normal 0.2-2.0 [facility] Comment on above: Performed By: #### C BC ####[facility] [address] [place] [id number]. Sarah Napoles EO # 0.2 103/ul Normal 0.0-0.7 [facility] Comment on above: Performed By: #### C BC ####[facility] [address] [place], [place] [address]Dr. Sarah Napoles Eosinophils/100 WBC (Bld) 2.5 % Normal 0.9-7.0 [facility] Comment on above: Performed By: #### C BC ####[facility] [address] [place], [place] [address]Dr. Sarah Dony Erythrocyte distribution width (RBC) [Ratio] 13.4 % Normal 11.0-15.0 [facility] Comment on above: Performed By: #### C BC ####[facility] [address]tv[address]jss[address] [place], [place] [address]Dr. Charlinecassie Napoles Hematocrit (Bld) [Volume fraction] 33.3 % Critically low 36.0-48.0 [facility] Comment on above: Performed By: #### C BC ####[facility] [address] [place], [place] [address]Dr. Sarah Napoles Hemoglobin (Bld) [Mass/Vol] 10.8 g/dL Critically low 12.0-16.0 [facility] Comment on above: Performed By: #### C BC ####[facility] [address] [place], [place] [address]Dr. Charlinecassie Napoles IG # 0.03 10e3/ul Normal 0.00-0.03 [facility] Comment on above: Performed By: #### C BC ####[facility] [address] [place], [place] [address]Dr. Sarah Napoles IG % 0.4 % Normal 0.0-0.5 [facility] Comment on above: Performed By: #### C BC ####[facility] [address] [place], [place] [address]DrJudy Napoles LYMPH # 1.7 103/ul Normal 1.2-3.8 [facility] Comment on above: Performed By: #### C BC ####[facility] [address] [place], [place] [address]Dr. Sarah Napoles Lymphocytes/100 WBC (Bld) 20.4 % Critically low 20.5-60.0 [facility] Comment on above: Performed By: #### C BC ####[facility] [address] [place] [address]DrJudy Napoles MANUAL DIFF REQ NO Normal [facility] Comment on above: Performed By: #### C BC ####[facility] [address] [place] [address]DrJudy Napoles MCH (RBC) [Entitic mass] 32.0 pg Normal 26.7-34.0 [facility] Comment on above: Performed By: #### C BC ####[facility] Jes[address]asmgt[address] [place], [place] [address]DrJudy Napoles MCHC (RBC) [Mass/Vol] 32.4 g/dL Normal 29.9-35.2 [facility] Comment on above: Performed By: #### C BC ####[facility] [address] [place], [place] [address]DrJudy Napoles MCV (RBC) [Entitic vol] 98.8 fL Normal 81.0-99.0 [facility] Comment on above: Performed By: #### C BC ####[facility] [address] [place], [place] [address]DrJudy Napoles MONO # 0.9 103/ul Critically high 0.3-0.8 [facility] Comment on above: Performed By: #### C BC ####[facility] [address] [place], [place] [address]DrJudy Napoles Monocytes/100 WBC (Bld) 11.0 % Normal 1.7-12.0 [facility] Comment on above: Performed By: #### C BC ####[facility] [address] [place], [place] [address]DrJudy Napoles NEUT # 5.3 103/ul Normal 1.4-6.5 [facility] Comment on above: Performed By: #### C BC ####[facility] [address] [place], [place] [address]DrJudy Napoles Neutrophils/100 WBC (Bld) 64.8 % Normal 43.0-75.0 [facility] Comment on above: Performed By: #### C BC ####[facility] [address] [place] [address]Dr. Sarah Napoles Platelet mean volume (Bld) [Entitic vol] 10.8 fL Normal 9.5-13.5 [facility] Comment on above: Performed By: #### C BC ####[facility] [address] [place] [address]Dr. Sarah Napoles PLT 262 103/ul Normal 150-450 [facility] Comment on above: Performed By: #### C BC ####[facility] [address] [place], [place] [address]Dr. Sarah Napoles RBC 3.37 106/ul Critically low 4.20-5.40 [facility] Comment on above: Performed By: #### C BC ####[facility] [address] [place], [place] [address]Dr. Sarah Napoles WBC 8.1 103/ul Normal 4.0-11.0 [facility] Comment on above: Performed By: #### C BC ####[facility] [address] [place], [place] [address]Dr. Sarah Napoles GLYCOHEMOGLOBIN A1Con 2021 ADA RECOMMENDATION SEE BELOW Normal [facility] Comment on above: Result Comment: ADA RECOMMENDED LIMIT 4.0 - 6.0 ADA THERAPEUTIC TARGET < 7.0 ACTION SUGGESTED > 7.0 Performed By: #### A 1C ####[facility] [address] [place], [place] [address]Dr. Sarah Napoles Glucose [Mass/Vol] 108 mg/dL Normal [facility] Comment on above: Performed By: #### A 1C ####[facility] [address] [place], [place] [address]Dr. Sarah Napoles HbA1c (Bld) [Mass fraction] 5.4 % Normal 4.5-6.2 [facility] Comment on above: Performed By: #### A 1C ####[facility] [address] [place], [place] [address]RvDr. Sarah Napoles LIPID PROFILEon 06-16-2022 CHOL-HDL RATIO NORM SEE BELOW Normal [facility] Comment on above: Result Comment: 3.3 - 4.4 LOW RISK 4.4 - 7.1 AVERAGE RISK 7.1 - 11.0 MODERATE RISK >11.0 HIGH RISK Performed By: #### C MP, LIPID #### [facility] [address] [place], [place] [address] Dr. Sarah Napoles Cholesterol [Mass/Vol] 147 mg/dL Normal <=200 [facility] Comment on above: Performed By: #### C MP, LIPID #### [facility] [address] [place], [place] [address] Dr. Sarah Napoles Cholesterol in HDL [Mass/Vol] 58 mg/dL Normal 40-60 [facility] Comment on above: Performed By: #### C MP, LIPID #### [facility] [address] [place], [place] [address] Dr. Sarah Napoles Cholesterol in LDL [Mass/Vol] 68.0 mg/dL Normal [facility] Comment on above: Performed By: #### C MP, LIPID #### [facility] [address] [place], [place] [address] Dr. Sarah Napoles Cholesterol.total/Ch olesterol in HDL [Mass ratio] 2.5 {ratio} Normal [facility] Comment on above: Performed By: #### C MP, LIPID #### [facility] [address] [place], [place] [address] Dr. Sarah Napoles HDL NORMAL > or = 60 mg/dl - LO W CARDIOVASCULAR RISK <40 mg/dl - HIGH CARDIOVASCULAR RISK Normal [facility] Comment on above: Performed By: #### C MP, LIPID #### [facility] [address] [place], [place] [address] Dr. Sarah Napoles LDL CALC NORMAL SEE BELOW Normal [facility] Comment on above: Result Comment: <100 mg/dl OPTIMAL 100 - 129 mg/dl NEAR OR ABOVE OPTIMAL 130 - 159 mg/dl BORDERLINE HIGH 160 - 189 mg/dl HIGH >190 mg/dl VERY HIGH Performed By: #### C MP, LIPID #### [facility] [address] [place] [address] Dr. Sarah Napoles Triglyceride [Mass/Vol] 105 mg/dL Normal <=150 [facility] Comment on above: Performed By: #### C MP, LIPID #### [facility] [address] [place] [address] [address] Sarah Napoles VLDL CALC 21.0 mg/dL Normal [facility] Comment on above: Performed By: #### C MP, LIPID #### [facility] [address] [place] [address] Dr. Sarha Napoles PROF 14(COMP METB)on 022 Albumin [Mass/Vol] 4.0 g/dL Normal 3.4-5.[address] [facility] [facility] Comment on above: Performed By: #### C MP, LIPID #### [facility] [address] [place] [address] Dr. Sarah Napoles Albumin/Globulin [Mass ratio] 1.2 {ratio} Normal [facility] Comment on above: Performed By: #### C MP, LIPID #### [facility] [address] [place] [address] Dr. Sarah Napoles ALP [Catalytic activity/Vol] 53 U/L Normal 46-116 [facility] Comment on above: Performed By: #### C MP, LIPID #### [facility] [address] [place] [address] Dr. Sarah Napoles ALT [Catalytic activity/Vol] 32 U/L Normal 14-59 [facility] Comment on above: Performed By: #### C MP, LIPID #### [facility] [address] [place] [address] Dr. Sarah Napoles Anion gap [Moles/Vol] 8.0 mmol/L Normal [facility] Comment on above: Performed By: #### C MP, LIPID #### [facility] [address] [place] [address] Dr. Sarah Napoles AST [Catalytic activity/Vol] 23 U/L Normal 15-37 [facility] Comment on above: Performed By: #### C MP, LIPID #### [facility] [address] [address] [address] Sarah Napoles Bilirubin [Mass/Vol] 0.4 mg/dL Normal 0.2-1.0 [facility] Comment on above: Performed By: #### C MP, LIPID #### [facility] [address] [address] [address] Sarah Napoles Calcium [Mass/Vol] 9.4 mg/dL Normal 8.5-10.[address] [facility] Comment on above: Performed By: #### C MP, LIPID #### [facility] [address] [address] [address] Sarah Napoles Chloride [Moles/Vol] 100 mmol/L Normal 98-107 [facility] Comment on above: Performed By: #### C MP, LIPID #### [facility] [address] [place] [address] Dr. Sarah Napoles CO2 [Moles/Vol] 30.8 mmol/L Normal 21.0-32.0 [facility] Comment on above: Performed By: #### C MP, LIPID #### [facility] [address] [place] [address] Dr. Sarah Napoles Creatinine [Mass/Vol] 0.68 mg/dL Normal 0.55-1.02 [facility] Comment on above: Performed By: #### C MP, LIPID #### [facility] [address] [place] [address] Dr. Sarah Napoles EGFR-AF CENTRAL AFRICAN >60 Normal >=60 [facility] Comment on above: Performed By: #### C MP, LIPID #### [facility] [address] [place] [address] Dr. Sarah Napoles EGFR-NON AF CENTRAL AFRICAN >60 Normal >=60 [facility] Comment on above: Performed By: #### C MP, LIPID #### [facility] [address] [place] [address] Dr. Sarah Napoles Globulin (S) [Mass/Vol] 3.3 g/dL Normal [facility] Comment on above: Performed By: #### C MP, LIPID #### [facility] [address] [place], [place] [id number] Dr. Sarah Napoles Glucose [Mass/Vol] 90 mg/dL Normal 74-[address] [facility] Comment on above: Performed By: #### C MP, LIPID #### [facility] [address] [place] [address] Dr. Sarah Napoles Potassium [Moles/Vol] 3.8 mmol/L Normal 3.5-5.1 [facility] Comment on above: Performed By: #### C MP, LIPID #### [facility] [address] [place] [address] Dr. Sarah Napoles Protein [Mass/Vol] 7.3 g/dL Normal 6.4-8.[address] [facility] Comment on above: Performed By: #### C MP, LIPID #### [facility] [address] [place] [address] Dr. Sarah Napoles Sodium [Moles/Vol] 135 mmol/L Critically low 136-145 [facility] Comment on above: Performed By: #### C MP, LIPID #### [facility] [address] [place] [address] Dr. Sarah Napoles Urea nitrogen [Mass/Vol] 13.0 mg/dL Normal 7.0-18.0 [facility] Comment on above: Performed By: #### C MP, LIPID #### [facility] [address] [place] [address] Dr. Sarah Napoles Urea nitrogen/Creatinine [Mass ratio] 19.1 mg/mg Normal [facility] Comment on above: Performed By: #### C MP, LIPID #### [facility] [address] [place] [address] Dr. Sarah Napoles POC GLUCOSE LABon 01-03-2021 Glucose [Mass/Vol] 119 mg/dL High 70-100 [facility] Comment on above: Performed By: #### 8 [id number] #### [facility] [address] [place] [address], [facility] Glucose [Mass/Vol] 145 mg/dL High 70-100 [facility] Comment on above: Performed By: #### 8 [id number] #### [facility] [address] [place] [address], [place] Glucose [Mass/Vol] 93 mg/dL Normal 70-100 [facility] Comment on above: Performed By: #### 8 [id number] #### [facility] [address] [place] [address], [place] Glucose [Mass/Vol] 99 mg/dL Normal 70-100 [facility] Comment on above: Performed By: #### 8 [id number] #### [facility] [address] [place] [address], [place] POC GLUCOSE LABon 01-02-2021 Glucose [Mass/Vol] 101 mg/dL High 70-100 [facility] Comment on above: Performed By: #### 8 [id number] #### [facility] [address] [place] [address], [place] Glucose [Mass/Vol] 127 mg/dL High 70-100 [facility] Comment on above: Performed By: #### 8 [id number] #### [facility] [address] [place] [address], [place] Glucose [Mass/Vol] 110 mg/dL High 70-100 [facility] Comment on above: Performed By: #### 8 [id number] #### [facility] [address] [place] [address], [place] BASIC METABOLIC PANELon -3 Calcium [Mass/Vol] 8.4 mg/dL Low 8.6-10.3 [facility] Comment on above: Order Comment: No: D o not add to previous draw Performed By: #### 8 [id number] #### [facility] [address] [place] [address], [place] Chloride [Moles/Vol] 106 mmol/L Normal 98-107 [facility] Comment on above: Order Comment: No: D o not add to previous draw Performed By: #### 8 [id number] #### [facility] [address] [place] [address], [place] CO2 [Moles/Vol] 29 mmol/L Normal 21-31 [facility] Comment on above: Order Comment: No: D o not add to previous draw Performed By: #### 8 [id number] #### [facility] [address] [place] [address], [place] Creatinine [Mass/Vol] 0.50 mg/dL Low 0.60-1.20 [facility] Comment on above: Order Comment: No: D o not add to previous draw Performed By: #### 8 [id number] #### [facility] [address] [place] [address], [place] GFR/1.73 sq M.predicted among blacks MDRD (S/P/Bld) [Vol rate/Area] mL/min/{1.73_m2} Normal >60 [facility] Comment on above: Order Comment: No: D o not add to previous draw Performed By: #### 8 [id number] #### [facility] [address] [place] [address], [place] GFR/1.73 sq M.predicted among non-blacks MDRD (S/P/Bld) [Vol rate/Area] mL/min/{1.73_m2} Normal >60 [facility] Comment on above: Order Comment: No: D o not add to previous draw Performed By: #### 8 [id number] #### [facility] [address] [place] [address], [place] Glucose [Mass/Vol] 88 mg/dL Normal 70-100 [facility] Comment on above: Order Comment: No: D o not add to previous draw Performed By: #### 8 [id number] #### [facility] [address] [place] [address], [place] Potassium [Moles/Vol] 3.3 mmol/L Low 3.5-5.1 [facility] Comment on above: Order Comment: No: D o not add to previous draw Performed By: #### 8 [id number] #### [facility] [address] [place] [address], [facility] Sodium [Moles/Vol] 141 mmol/L Normal 136-145 [facility] Comment on above: Order Comment: No: D o not add to previous draw Performed By: #### 8 [id number] #### [facility] [address] [place] [address], [facility] Urea nitrogen [Mass/Vol] 10 mg/dL Normal 7-25 [facility] Comment on above: Order Comment: No: D o not add to previous draw Performed By: #### 8 [id number] #### [facility] [address] [facility] [place] [address], [facility] CBC W/DIFFon 01-01-2021 ABS IMM GRANS 0.1 10*3/uL Normal 0.0-0.2 [facility] Comment on above: Order Comment: No: D o not add to previous draw Performed By: #### 5 0103 #### [facility] [address] [place] [address], [facility] ABS NEUTROPHILS 10.1 10*3/uL High 1.6-7.6 [facility] Comment on above: Order Comment: No: D o not add to previous draw Performed By: #### 5 0103 #### [facility] [address] [place] [address], [facility] Basophils (Bld) [#/Vol] 0.0 10*3/uL Normal 0.0-0.2 [facility] Comment on above: Order Comment: No: D o not add to previous draw Performed By: #### 5 0103 #### [facility] [address] [place] [address], [facility] Basophils/100 WBC (Bld) 0.2 % Normal 0.0-1.0 [facility] Comment on above: Order Comment: No: D o not add to previous draw Performed By: #### 5 0103 #### [facility] [address] [place] [address], [facility] Eosinophils (Bld) [#/Vol] 0.0 10*3/uL Normal 0.0-0.5 [facility] Comment on above: Order Comment: No: D o not add to previous draw Performed By: #### 5 0103 #### [facility] [address] [place] [address], [facility] Eosinophils/100 WBC (Bld) 0.1 % Normal 0.0-6.0 [facility] Comment on above: Order Comment: No: D o not add to previous draw Performed By: #### 5 0103 #### [facility] [address] Erythrocyte distribution width (RBC) [Ratio] 13.1 % Normal 11.5-15.0 [facility] Comment on above: Order Comment: No: D o not add to previous draw Performed By: #### 5 0103 #### [facility] [address] Hematocrit (Bld) [Volume fraction] 27.7 % Low 36.0-45.0 [facility] Comment on above: Order Comment: No: D o not add to previous draw Performed By: #### 5 0103 #### [facility] [address] [place] [address], [facility] Hemoglobin (Bld) [Mass/Vol] 9.2 g/dL Low 12.0-15.0 [facility] Comment on above: Order Comment: No: D o not add to previous draw Result Comment: RESU LTS CHECKED Performed By: #### 5 3 #### [facility] [address] [place] [address], [facility] IMMATURE GRANS 0.4 % Normal 0.0-1.0 The [facility] Comment on above: Order Comment: No: D o not add to previous draw Performed By: #### 5 0103 #### [facility] [address] [place] [address], [facility] Lymphocytes (Bld) [#/Vol] 1.8 10*3/uL Normal 1.2-4.0 [facility] Comment on above: Order Comment: No: D o not add to previous draw Performed By: #### 5 0103 #### [facility] [address] [place] [address], [facility] Lymphocytes/100 WBC (Bld) 13.6 % Low 20.0-45.0 [facility] Comment on above: Order Comment: No: D o not add to previous draw Performed By: #### 5 3 #### [facility] [address] [place] [address], [facility] MCH (RBC) [Entitic mass] 32.4 pg Normal 27.0-33.0 [facility] Comment on above: Order Comment: No: D o not add to previous draw Performed By: #### 5 0103 #### [facility] [address] [facility] [place] [address], [facility] MCHC (RBC) [Mass/Vol] 33.2 g/dL Normal 32.0-35.0 [facility] Comment on above: Order Comment: No: D o not add to previous draw Performed By: #### 5 0103 #### [facility] [address] [place] [id number], [facility] MCV (RBC) [Entitic vol] 97.5 fL Normal 82.0-98.0 [facility] Comment on above: Order Comment: No: D o not add to previous draw Performed By: #### 5 3 #### [facility] [address] [place] [address], [facility] Monocytes (Bld) [#/Vol] 1.4 10*3/uL High 0.1-1.0 [facility] Comment on above: Order Comment: No: D o not add to previous draw Performed By: #### 5 0103 #### [facility] [address] [place] [id number], [facility] MONOS 10.1 % Normal 5.0-12.0 [facility] Comment on above: Order Comment: No: D o not add to previous draw Performed By: #### 5 0103 #### [facility] [address] [place] [address], [facility] Neutrophils/100 WBC (Bld) 75.6 % High 40.0-72.0 [facility] Comment on above: Order Comment: No: D o not add to previous draw Performed By: #### 5 0103 #### [facility] [address] [place] [id number], [facility] Nucleated RBC/100 WBC (Bld) [Ratio] 0 % Normal 0-0 [facility] Comment on above: Order Comment: No: D o not add to previous draw Performed By: #### 5 0103 #### [facility] [address] [place] [id number], [facility] PLAT CNT 237 10*3/uL Normal 150-400 [facility] Comment on above: Order Comment: No: D o not add to previous draw Performed By: #### 5 0103 #### [facility] [address] [place] [id number], [facility] RBC (Bld) [#/Vol] 2.84 10*6/uL Low 3.80-5.00 The [facility] Comment on above: Order Comment: No: D o not add to previous draw Performed By: #### 5 0103 #### [facility] [address] [place] [address], [place] WBC (Bld) [#/Vol] 13.43 10*3/uL High 4.00-10.60 [facility] Comment on above: Order Comment: No: D o not add to previous draw Performed By: #### 5 0103 #### [facility] [address] [place] [address], [place] POC GLUCOSE LABon 01-01-2021 Glucose [Mass/Vol] 115 mg/dL High 70-100 [facility] on above: Performed By: #### 8 [id number] #### [facility] [address] [place] [address], [place] Glucose [Mass/Vol] 110 mg/dL High 70-100 [facility] Comment on above: Performed By: #### 8 [id number] #### [facility] [address] [place] [address], [place] Glucose [Mass/Vol] 111 mg/dL High 70-100 [facility] Comment on above: Performed By: #### 8 5499 #### [facility] [address] [place] [address], [place] Glucose [Mass/Vol] 102 mg/dL High 70-100 [facility] Comment on above: Performed By: #### 8 5499 #### [facility] [address] [place] [address], [facility] HIP RIGHT 1 OR 2 VWS WITH PE LVISon 12-31-2020 HIP RIGHT 1 OR 2 VWS WITH PELVIS [facility] Department of Radiology [address] [place] [id number] Patient Name: BLANCA ENRIQUEZ : 1960 [...] reports Electronically signed: Panda Smith. Transcribed by: [email or web address], User Resident: SCHUYLER RODRIGUES Electronically Signed by: PANDA SMITH @ 12/31/2020 04:29 PM I personally read this/these film(s) with this resident Normal [facility] Comment on above: Order Comment: RIGHT ANTERIOR TOTAL HIP REPLACEMENT Operative Reporton Operative Report MR#: [id number] I [facility] Pt. Name: Blanca Enriquez Room #: [id number] Discharge Date: Birthdate: 1960 OPERATIVE REPORT DATE [...] right hip pain despite nonoperative measures. Has [id number] osteoarthritis of the right hip with subchondral [...] Roberts M.D. Date Trans: 12/31/2020 09:28 P/mmo [id number] Normal [facility] POC GLUCOSE LABon 12-31-2020 Glucose [Mass/Vol] 167 mg/dL High 70-100 [facility] Comment on above: Performed By: #### 8 [id number] #### [facility] [address] [place] [address], [place] Glucose [Mass/Vol] 162 mg/dL High 70-100 [facility] Comment on above: Performed By: #### 8 5499 #### [facility] [address] [place] [address], [place] Glucose [Mass/Vol] 168 mg/dL High 70-100 [facility] Comment on above: Performed By: #### 8 5499 #### [address] [place] [address], [facility] Glucose [Mass/Vol] 104 mg/dL High 70-100 [facility] Comment on above: Performed By: #### 8 5499 #### [address] [place] [address], [facility] PORTABLE HIP RIGHT 1 OR 2 VW S WITH PELVISon 12-31-2020 PORTABLE HIP RIGHT 1 OR 2 VWS WITH PELVIS [facility] Department of Radiology [address] [place] [id number] Patient Name: BLANCA ENRIQUEZ : 1960 [...] fracture Electronically signed: Panda Smith. Transcribed by: [email or web address], User Resident: Electronically Signed by: PANDA SMITH @ 12/31/2020 01:05 PM Normal [facility] Comment on above: Order Comment: Hardw are Evaluation, PACU *MRSA/MSSA DNA NASALon 12-10 *MRSA/MSSA DNA NASAL Clinical Report: (D ) Specimen: NASAL SWAB Collected: 12/10/2020 13:55 Status: Final Last Updated: 12/11/2020 15:48 MSSA DNA (Final) Negative MRSA DNA (Final) Negative Normal [facility] Comment on above: Performed By: #### 8 [id number] #### [facility] [address] CBC W/DIFFon 12-10-2020 ABS IMM GRANS 0.0 10*3/uL Normal 0.0-0.2 [facility] Comment on above: Performed By: #### 8 [id number] #### [facility] [address] ABS NEUTROPHILS 7.7 10*3/uL High 1.6-7.6 The [facility] Comment on above: Performed By: #### 8 [id number] #### [facility] [address] [place] [address], [facility] Basophils (Bld) [#/Vol] 0.1 10*3/uL Normal 0.0-0.2 [facility] Comment on above: Performed By: #### 8 [id number] #### [facility] [address] Basophils/100 WBC (Bld) 0.6 % Normal 0.0-1.0 [facility] Comment on above: Performed By: #### 8 [id number] #### [facility] [address] Eosinophils (Bld) [#/Vol] 0.1 10*3/uL Normal 0.0-0.5 [facility] Comment on above: Performed By: #### 8 [id number] #### [facility] [address] [place] [address], [facility] Eosinophils/100 WBC (Bld) 1.0 % Normal 0.0-6.0 [facility] Comment on above: Performed By: #### 8 [id number] #### [facility] [address] Erythrocyte distribution width (RBC) [Ratio] 13.0 % Normal 11.5-15.0 [facility] Comment on above: Performed By: #### 8 [id number] #### [facility] [address] Hematocrit (Bld) [Volume fraction] 36.2 % Normal 36.0-45.0 [facility] Comment on above: Performed By: #### 8 [id number] #### [facility] [address] Hemoglobin (Bld) [Mass/Vol] 11.9 g/dL Low 12.0-15.0 [facility] Comment on above: Performed By: #### 8 [id number] #### [facility] [address] [place] [address], [facility] IMMATURE GRANS 0.3 % Normal 0.0-1.0 [facility] Comment on above: Performed By: #### 8 [id number] #### [facility] [address] [place] [address], [facility] Lymphocytes (Bld) [#/Vol] 1.5 10*3/uL Normal 1.2-4.0 [facility] Comment on above: Performed By: #### 8 [id number] #### [facility] [address] [place] [address], [facility] Lymphocytes/100 WBC (Bld) 15.1 % Low 20.0-45.0 [facility] Comment on above: Performed By: #### 8 [id number] #### [facility] [address] [place] [address], [facility] MCH (RBC) [Entitic mass] 31.9 pg Normal 27.0-33.0 [facility] Comment on above: Performed By: #### 8 [id number] #### [facility] [address] [place] [id number], [facility] MCHC (RBC) [Mass/Vol] 32.9 g/dL Normal 32.0-35.0 [facility] Comment on above: Performed By: #### 8 [id number] #### [facility] [address] [place] [address], [facility] MCV (RBC) [Entitic vol] 97.1 fL Normal 82.0-98.0 [facility] Comment on above: Performed By: #### 8 [id number] #### [facility] [address] [place] [address], [facility] Monocytes (Bld) [#/Vol] 0.7 10*3/uL Normal 0.1-1.0 [facility] Comment on above: Performed By: #### 8 [id number] #### [facility] [address] [facility] [place] [id number], [facility] MONOS 7.3 % Normal 5.0-12.0 [facility] Comment on above: Performed By: #### 8 [id number] #### [facility] [address] [facility] [place] [id number], [facility] Neutrophils/100 WBC (Bld) 75.7 % High 40.0-72.0 [facility] Comment on above: Performed By: #### 8 [id number] #### [facility] [address] [place] [id number], [facility] Nucleated RBC/100 WBC (Bld) [Ratio] 0 % Normal 0-0 [facility] Comment on above: Performed By: #### 8 [id number] #### [facility] [address] [facility] [place] [address], [facility] PLAT CNT 290 10*3/uL Normal 150-400 The [facility] Comment on above: Performed By: #### 8 [id number] #### [facility] [address] [place] [address], [facility] RBC (Bld) [#/Vol] 3.73 10*6/uL Low 3.80-5.00 [facility] Comment on above: Performed By: #### 8 [id number] #### [facility] [address] [place] [address], [facility] WBC (Bld) [#/Vol] 10.11 10*3/uL Normal 4.00-10.60 [facility] Comment on above: Performed By: #### 8 [id number] #### [facility] [address] [place] [address], [facility] HEMOGLOBIN A1Con 12-10-2020 Glucose [Moles/Vol] 108 mmol/L Normal [facility] Comment on above: Performed By: #### 3 1791 #### [facility] [address] [place] [address], [facility] HbA1c (Bld) [Mass fraction] 5.4 % Normal 4.0-6.0 [facility] Comment on above: Performed By: #### 3 179 #### [facility] [address] [place] [address], [facility] HIP RIGHT 1 OR 2 VWS WITH PE LVISon 11-22-2020 HIP RIGHT 1 OR 2 VWS WITH PELVIS [facility] Department of Radiology [address] [place] [id number] Patient Name: BLANCA ENRIQUEZ : 1960 Sex: [...] exam. Electronically signed: Rodney Sutherland. Transcribed by: [id number], User Resident: Electronically Signed by: RODNEY SUTHERLAND @ 11/22/2020 03:43 PM [place] [facility] Comment on above: Order Comment: Evalu ate Encounters Encounter Date Encounter Type Care Provider Facility Start: 06-27-2024 End: 06-27-2024 ambulatory Chikis May MD Facility:[facility] [place] Start: 06-14-2024 End: 06-14-2024 ambulatory MAISHA BRYANT Not Available Start: 05-02-2024 End: 05-02-2024 ambulatory Chikis May MD Facility: [facility] Start: 03-15-2024 End: 03-15-2024 ambulatory WHITFIELD FAWWAD Not Available Start: 12-10-2023 End: 12-10-2023 ambulatory WHITFIELD FAWWAD Not Available Start: 11-12-2023 Orders Only Shaikh Reyes PALACIO Work Phone: [facility] Comment on above: Chronic left shoulde r pain; Chronic pain of left knee Start: 11-09-2023 End: 11-09-2023 ambulatory Chikis May MD Facility:[facility] [place] Start: 09-08-2023 End: 09-08-2023 ambulatory WHITFIELD FAWWAD Not Available Start: 09-08-2023 Patient encounter procedure Shaikh Reyes PALACIO Work Phone: [facility] Start: 03-03-2023 End: 03-04-2023 ambulatory WHITFIELD H [...] 06-16-2022 End: 06-17-2022 ambulatory WHITFIELD H FAWWAD Facility: Start: 12-31-2020 End: 01-03-2021 ambulatory PHYSICIAN UNKNOWN Facility:[facility] Procedures Date Procedure Procedure Detail [...] Screening for malign ant neoplasm of colon [facility] Start: 09-08-2024 Medicare Annual Well ness (AWV) Medicare Annual Wellness (AWV) [facility] Start: 09-08-2024 Screening for malign ant neoplasm of breast Mammogram [facility] Start: 12-09-2023 End: 12-09-2023 Patient encounter procedure 12/09/2023 3:30 PM EST Office Visit [facility] [address] [place] [id number] Shaikh Chambers MD [address] [place] [id number] [facility] Start: 06-05-2023 Influenza vaccination Influenza Vacc ine (#1) [facility] Start: 2023 Pneumococcal Vaccine : 65+ Years (1 - PCV) Pneumococcal Vaccine: 65+ Years (1 - PCV) [facility] Start: 1988 Screening for malign ant neoplasm of cervix [facility] Start: 1979 Screening for malign ant neoplasm of cervix Pap Smear [facility] Start: 1958 Screening for malign ant neoplasm of colon [facility] Immunizations Immunization Date Immunization Notes Care Provider Fa cility 10-01-2022 influenza virus vacc ine, unspecified formulation Shaikh Reyes PALACIO Work Phone: [facility] Payers Date Payer Category Payer Unknown 2021 Medicare [employer] MEDICARE ADVANTAGE [facility] MEDICARE ADVANTAGE [id number] 2021-Present [address] [place] [address] [id number] 1959 Unknown [id number] 1958 Unknown [id number] 2.16.840.1.823245.3.579.2.647 1958 Unknown [id number] 2.16.840.1.775034.3.579.2.593 1958 Unknown [id number] 2.16.840.1.051328.3.579.2.593 1958 Unknown [id number] 2.16.840.1.574033.3.579.2.593 1958 Unknown [id number] 2.16.840.1.118159.3.579.2.593 1958 Unknown [id number] 2.16.840.1.525608.3.579.2.593 1958 Unknown [id number] 2.16.840.1.600318.3.579.2.593 1958 Unknown [id number] 2.16.840.1.852388.3.579.2.593 1958 Unknown [id number] 2.16.840.1.577069.3.579.2.593 1958 Unknown [id number] 2.16.840.1.689815.3.579.2.593 1958 Unknown [id number] 2.16.840.1.139416.3.579.2.125 9 1958 Unknown [id number] 2.16.840.1.782238.3.579.2.125 9 1958 Unknown [id number] 2.16.840.1.918327.3.579.2.125 9 1958 Unknown [id number] 2.16.840.1.715266.3.579.2.125 9 1958 Unknown [id number] 2.16.840.1.620387.3.579.2.196 1958 Unknown [id number] 2.16.840.1.738197.3.579.2.196 1958 Unknown [id number] 2.16.840.1.352998.3.579.2.196 Social History Date Type Detail Facility Start: 09-08-2023 Tobacco smoking status SDIS Ex-smoke r [facility] End: 12-03-2020 History [...] to any clubs or organizations such as uatsdin groups, unions, fraternal or athletic groups, or [...] by: JOVANNI MILLAN Date: 2022-12-17 16:26 [facility] Evaluation note Note Date & Type Note Facility Evaluation note Diagnosis Chronic left shoulder pain Pain in joint, shoulder region Chronic pain of left knee documented in this encounter [facility] Summary Purpose Family History No Family History Records FoundNo Family History Records FoundNo Family History Records FoundNo Family History Records Found Advance Directives No Advanced Directives Records FoundNo Advanced Directives Records FoundNo Advanced Directives Records FoundNo Advanced Directives Records Found Additional Source Comments INFORMATION SOURCE (unrecogn ized section and content) DATE CREATED AUTHOR 02/27/2021 [facility] DATE CREATED AUTHOR AUTHOR'S ORGANIZ ATION 03/13/2023 [facility] DATE CREATED AUTHOR AUTHOR'S ORGANIZ ATION 06/16/2024 [facility] DATE CREATED AUTHOR AUTHOR'S ORGANIZ ATION 07/04/2024 [facility] Care Teams (unrecognized sec tion and content) 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 [facility] [email or web address], [facility]. provides no warranty or guarantee of the accuracy or completeness of information in this document.
[2024-07-12 12:59] LABS: Hemoglobin 11.3 g/dL (12.0-16.0)
--- NOTE | 2024-07-12 13:00 | RT_ITS ---
[facility] Test Date: 2024-07-12 Pat Name: BLANCA BUTLER Department: Room: - Gender: Female Debeader: Yanelis Heller RRT : 1960 Requested By: [id number] Order Number: [id number] Reading MD: Justin Marin Interpretive Statements Pulmonary function testing was completed according to ATS criteria. Findings were considered accurate and reproducible. Both pre- and post-bronchodilator values utilized for spirometry. Spirometry (based on pre-bronchodilator values): -FEV1/FVC: Normal @ 81% -FEV1: Reduced @ 74% -FVC: Mild-moderately reduced @ 70% -There is a positive bronchodilator response in FEV1 and FVC. Lung volumes by plethysmography (based on pre-bronchodilator values): -RV: Normal @ 97% -TLC: Normal @ 92% Diffusion capacity: -DLCO: Normal @ 85% when corrected for Hb 11.3g/dL Flow-volume loop: -Mild restrictive pattern Impressions: -There is a mild-moderate restrictive pattern on spirometry with normal lung volumes which can be seen in an obesity pattern (stated BMI 32.2). Diffusion capacity is normal. There is a positive bronchodilator response which may suggest an underlying obstructive process, such as asthma, obscurred by the restriction. Clinical correlation required. Electronically Signed On 07-13-2024 6:33:43 EDT by Justin Marin
[2024-07-12] MEDS: ALBUTEROL SULFATE 2.5 MG/3 ML VIAL NEB IH (14:01)
== END 2024-07-12 12:39 | disposition home or self-care (01) ==
DX: J44.9 Chronic obstructive pulmonary disease, unspecified (principal)
CPT/HCPCS: 36415; 85018; 94060; 94726; 94729

== ENCOUNTER 2024-07-27 14:04 | Outpatient (OUT) | payer MEDICARE, SELFPAY ==
--- OUTSIDE RECORDS SUMMARY | 2024-07-27 14:21 | XMS_ITS | CCD ---
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 Name Role Phone UNKNOWN, PHYSICIAN Primary Care Unavailable UNKNOWN, PHYSICIAN Referring Unavailable HERMINIO ROBERTS Admitting Unavailable HERMINIO ROBERTS Attending Unavailable HERMINIO ROBERTS Surgeon Unavailable [place] Procedure Practitioner Unavailab PATRICIA GarciaIKH [employer] Consult[employer] [...] Unavailable Shaikh Chambers MD Primary Care Provider [phone] SHAIKH CHAMBERS Attending Unavailable SHAIKH CHAMBERS Attending Unavailable SHAIKH CHAMBERS Attending Unavailable JOANNA WYMAN Attending Unavailvivian May MD, Chikis Henderson Attending Unavailable Lalo PALACIO, Chikis Henderson Attending Unavailable Lalo PALACIO, Chikis Henderson Attending Unavailable Jose Guadalupe Villafuerte MD Primary Care Provider Zamzam WAGON DRIVER SALESPERSON, Joanna Unavailable Allergies Allergy Classification Reported Allergen(s) Allergy Type Date of Onset Reaction(s) Facility Aspirin (1 source) Aspirin; Translations: [ASPIRIN] Drug Allergy 12-26-2020 [facility] Repository (1 source) Amino Acids Drug Allergy [facility] Repository (1 source) Aspirin Drug Allergy [facility] Repository (5 sources) Aluminum aspirin Drug Allergy 04-30-2023 [facility] Medications Current Medications Medication Drug Class(es) Dates Sig (Normalized) Sig (Original) [id number] 200 actuat albuterol 0.09 mg/actuat metered dose inhaler (4 sources) beta2-Adrenergic Agonist Start: 06-14-2024 End: 07-14-2024 take 2 puff(s) by inhalation every four hours for wheezing albuterol HFA 90 mcg/act inhaler Indications: Suspected chronic obstructive pulmonary disease based on initial evaluation ([facility]) Inhale 2 puffs every 4 (four) hours if needed for wheezing 8.5 g 3 06/14/2024 Active alendronic acid 35 mg oral tablet (6 sources) Bisphosphonate Start: 06-21-2024 End: 09-19-2024 take 1 tablet by mouth in the morning alendronate (Fosamax) 35 MG tablet Indications: Osteoporosis without current pathological fracture, unspecified osteoporosis type (CMS/HCC) Take 1 tablet (35 mg) by mouth every 7 (seven) days Take in the morning with a full glass of water, on an empty stomach, and do not take anything else by mouth or lie down for the next 30 min. 12 tablet 06/21/2024 09/19/2024 Active take 1 tablet by mouth once rajiv y alendronate (Fosamax) 35 MG tablet 1 tablet 30 minutes before the first food, beverage or medicine of the day with plain water Orally 0 Active take 1 tablet by mouth every wee k alendronate (Fosamax) 70 MG tablet 1 tablet Orally ONCE WEEKLY 0 Active allopurinol 100 mg oral tablet (5 sources) Xanthine Oxidase Inhibitor Start: 04-13-2024 take 1 tablet by mouth in the morning allopurinol (Zyloprim) 100 MG tablet Indications: Hyperuricemia Take 1 tablet (100 mg) by mouth in the morning and 1 tablet (100 mg) before bedtime. 180 tablet 04/13/2024 Active allopurinol (Zyl oprim) 100 MG tablet every 12 (twelve) hours. 0 Active ascorbic acid 60 mg / cholecalciferol 0.01 mg / folic acid 0.3 mg / niacin 13.5 mg / riboflavin 1.2 mg / sodium fluoride 0.55 mg / thiamine 1.05 mg / vitamin a 0.75 mg / vitamin b12 0.0045 mg / vitamin b6 1.05 mg / vitamin e 6.75 mg chewable tablet (5 sources) Nicotinic Acid, Vitamin A, Vitamin B12, Vitamin D, Vitamin C Pediatric Multivitam ins-Fl (MultiVitamin + Fluoride) 0.25 MG chewable tablet Multivitamin Active B Complex Vitamins (VITAMIN B COMPLEX 100 IJ) (5 sources) B Complex Vitami ns (VITAMIN B COMPLEX 100 IJ) Vitamin B Complex Active B Complex Vitami ns (VITAMIN B COMPLEX 100 IJ) Vitamin B Complex 0 Active calcium carbonate 1500 mg oral tablet (5 sources) calcium carbonat e 1500 (600 Ca) MG tablet every 12 (twelve) hours. Active carvedilol 25 mg oral tablet (5 sources) alpha-Adrenergic Steph, beta-Adrenergic Steph Start: 01-12-2024 take 1 tablet by mouth in the morning carvedilol (Coreg) 25 MG tablet Indications: Primary hypertension (CMS/HCC) Take 1 tablet (25 mg) by mouth in the morning and 1 tablet (25 mg) in the evening. Take with meals. 180 tablet 01/12/2024 Active carvedilol (Core g) 25 MG tablet every 12 (twelve) hours. 0 Active cholecalciferol 0.025 mg ora l capsule (5 sources) Vitamin D cholecalciferol (Vitamin D-3) 25 MCG (1000 UT) capsule 1 capsule 1 (one) time each day at the same time. Active cinnamon bark 500 mg oral capsule (5 sources) cinnamon 500 MG capsule as directed Orally Active cranberry preparation 500 mg oral capsule (5 sources) Non-Standardized Food Allergenic Extract, Non-Standardized Plant Allergenic Extract Cranberry 500 MG cap jazmín as directed Orally Active evening primrose oil 1000 mg oral capsule (5 sources) Evening [place] Oil 1000 MG capsule as directed Orally Active famotidine 20 mg oral tablet (5 sources) Histamine-2 Receptor Antagonist famotidine (Pepcid) 20 MG tablet 1 (one) time each day at the same time. Active Fish Oils (5 sources) omega-3 (FISH OI L) 300 MG capsule Fish Oil Active omega-3 (FISH OI L) 300 MG capsule Fish Oil 0 Active fluticasone propionate 0.05 mg/actuat metered dose nasal spray (4 sources) Corticosteroid Start: 06-14-2024 End: 06-14-2025 take 1-2 spray(s) nasal route once daily fluticasone (Flonase) 50 MCG/ACT nasal spray Indications: Symptoms of upper respiratory infection (URI) Administer 1-2 sprays into each nostril Daily Shake gently. Before first use, prime pump. After use, clean tip and replace cap. 16 g 2 06/14/2024 06/14/2025 Active 60 actuat fluticasone propionate 0.1 mg/actuat / salmeterol 0.05 mg/actuat dry powder inhaler (2 sources) Corticosteroid, beta2-Adrenergic Agonist Start: 07-13-2024 take 1 puff(s) by inhalation once daily Fluticasone-Salme terol (Advair Diskus) 100-50 MCG/ACT aerosol powder Indications: Suspected chronic obstructive pulmonary disease based on initial evaluation ([facility]) , Mild intermittent asthma without complication ([facility]) Inhale 1 puff Daily 60 each 2 07/13/2024 Active gabapentin 300 mg oral capsule (5 sources) Anti-epileptic Agent Start: 08-23-2023 take 1 capsule by mouth in the morning, then take 1 capsule by mouth in the evening, then take 1 capsule by mouth at bedtime gabapentin (Neurontin) 300 MG capsule Take 300 mg by mouth in the morning and 300 mg in the evening and 300 mg before bedtime. 08/23/2023 Active Garlic preparation (5 sources) Non-Standardized Food Allergenic Extract Garlic 2 MG capsule Garlic Active Garlic 2 MG caps ule Garlic 0 Active Ginkgo biloba extract (5 sources) Ginkgo Biloba 40 MG tablet Ginko Biloba Active Ginkgo Biloba 40 MG tablet Ginko Biloba 0 Active glucosamine sulfate 1000 mg oral capsule (5 sources) Glucosamine Sulf ate 1000 MG capsule 1 (one) time each day at the same time. Active Grape Seed Extract (5 sources) Grape Seed Extra ct 30 MG capsule Grape Seed Extract Active Grape Seed Extra ct 30 MG capsule Grape Seed Extract 0 Active hydroCHLOROthiazide 25 mg oral tablet (5 sources) Thiazide Diuretic Start: 09-15-2023 End: 03-13-2024 take 1 tablet by mouth in the morning hydroCHLOROthiazide (HYDRODiuril) 25 MG tablet Indications: Primary hypertension (CMS/HCC) TAKE 1 TABLET BY MOUTH IN THE MORNING 90 tablet 1 03/14/2024 Active loratadine 10 mg oral tablet (5 sources) loratadine (Clar itin) 10 MG tablet 1 (one) time each day at the same time. Active losartan potassium 100 mg oral tablet (5 sources) Angiotensin 2 Receptor Steph Start: 06-27-2024 take 1 tablet by mouth once daily losartan (Cozaar) 100 MG tablet Indications: Primary hypertension (CMS/HCC) Take 1 tablet (100 mg) by mouth Daily 90 tablet 06/27/2024 Active losartan (Cozaar ) 100 MG tablet 1 (one) time each day at the same time. 0 Active nabumetone 500 mg oral tablet (5 sources) Nonsteroidal Anti-inflammatory Drug Start: 07-18-2024 End: 10-16-2024 take 1 tablet by mouth in the morning nabumetone (Relafen) 500 MG tablet Indications: Chronic left shoulder pain , Chronic pain of left knee Take 1 tablet (500 mg) by mouth in the morning and 1 tablet (500 mg) before bedtime. 60 tablet 2 07/18/2024 10/16/2024 Active Start: 04-13-2024 End: 07-14-2024 take 1 tablet by mouth in the morning nabumetone (Relafen) 500 MG tablet Indications: Chronic left shoulder pain , Chronic pain of left knee Take 1 tablet (500 mg) by mouth in the morning and 1 tablet (500 mg) before bedtime. 60 tablet 2 04/13/2024 07/14/2024 Discontinued (Reorder) Start: 10-08-2023 End: 01-06-2024 take 1 tablet by mouth in the morning nabumetone (Relafen) 500 MG tablet Indications: Chronic left shoulder pain , Chronic pain of left knee Take 1 tablet (500 mg) by mouth in the morning and 1 tablet (500 mg) before bedtime. 60 tablet 2 10/08/2023 01/06/2024 Active oxyCODONE hydrochloride 5 mg oral tablet (6 sources) Opioid Agonist Start: 06-27-2024 End: 07-27-2024 take 1 tablet by mouth once oxyCODONE (Roxicodone) 5 MG immediate release tablet Indications: Chronic left shoulder pain , Chronic pain of left knee Take 1 tablet (5 mg) by mouth every 12 (twelve) hours if needed for moderate pain 60 tablet 06/27/2024 07/27/2024 Active Start: 10-13-2023 End: 12-12-2023 take 1 tablet by mouth once oxyCODONE (Roxicodone) 5 M G immediate release tablet Indications: Chronic left shoulder pain , Chronic pain of left knee Take 1 tablet (5 mg) by mouth every 12 (twelve) hours if needed for moderate pain 60 tablet 0 11/12/2023 12/12/2023 Active PARoxetine hydrochloride 20 mg oral tablet (5 sources) Serotonin Reuptake Inhibitor Start: 04-18-2024 take 1 tablet by mouth once daily PARoxetine (Paxil) 20 MG tablet Indications: Recurrent major depressive disorder, in full remission (CMS/HCC) Take 1 tablet by mouth once daily 90 tablet 1 04/18/2024 Active PARoxetine (Paxi l) 20 MG tablet 1 (one) time each day at the same time. 0 Active simvastatin 20 mg oral tablet (5 sources) HMG-CoA Reductase Inhibitor Start: 12-07-2023 take 1 tablet by mouth once daily simvastatin (Zocor) 20 MG tablet Indications: Mixed hyperlipidemia (CMS/HCC) Take 1 tablet (20 mg) by mouth 1 (one) time each day at the same time 90 tablet 1 12/07/2023 Active simvastatin (Zoc or) 20 MG tablet 1 (one) time each day at the same time. 0 Active Turmeric Curcumin 500 MG cap jazmín (5 sources) Turmeric Curcumi n 500 MG capsule as directed Orally Active Turmeric Curcumi n 500 MG capsule as directed Orally 0 Active ubidecarenone 100 mg / vitam in e 5 unt oral capsule (5 sources) coenzyme Q-10 10 0 MG capsule as directed Orally Active vitamin e d-alpha 400 unt or al capsule (5 sources) alpha tocopherol (Vitamin E) 400 units capsule 1 capsule 1 (one) time each day at the same time. Active Problems Active Problems Problem Classification Problem Date Documented Da te Episodic/Chronic Asthma (3 sources) Mild intermittent asthma; Translations: [Mild intermittent asthma, uncomplicated] 07-13-2024 Chronic Chronic obstructive pulmonary disease and bronchiectasis (6 sources) Suspected respiratory disease; Translations: [Chronic obstructive pulmonary disease, unspecified] Onset: 4 07-07-2024 Chronic Diabetes mellitus without complication (5 sources) Type 2 diabetes mellitus without complications; Translations: [TYPE 2 DM WITHOUT COMPLICATIONS] Onset: 2 Chronic Disorders of lipid metabolism (6 sources) Hyperlipidemia, unspecified; Translations: [Mixed hyperlipidemia] Onset: 3 09-08-2023 Chronic Essential hypertension (6 sources) Essential (primary) hypertension; Translations: [Essential hypertension] Onset: 3 09-08-2023 Chronic Gout and other crystal arthropathies (4 sources) Gout, unspecified; Translations: [GOUT UNSPECIFIED] Onset: 3 Chronic Osteoarthritis (20 sources) Primary osteoarthritis, left shoulder; Translations: [Primary osteoarthritis, right shoulder] Onset: 3 04-30-2023 Chronic Other aftercare (4 sources) Encounter for surgical aftercare following surgery on the circulatory system; Translations: [ENC SURG [facility] FLW SURG CIRC SYS] Onset: 3 Episodic Other circulatory disease (4 sources) Upper respiratory tract finding; Translations: [Other specified symptoms and signs involving the circulatory and respiratory systems] Onset: 4 06-14-2024 Episodic Other nervous system disorders (5 sources) Difficulty walking; Translations: [Difficulty in walking, not elsewhere classified] Onset: 3 04-30-2023 Chronic Other nervous system disorders (5 sources) Chronic pain; Translations: [Other chronic pain] Onset: 3 04-30-2023 Chronic Other non-traumatic joint disorders (4 sources) Pain in right knee; Translations: [PAIN IN RIGHT KNEE] Onset: 3 Episodic Other non-traumatic joint disorders (8 sources) Pain in left knee; Translations: [Pain [...] Onset: 3 Episodic Other non-traumatic joint disorders (7 sources) Chronic pain of left upper limb; [...] Problem Date Documented Da te Episodic/Chronic Other connective tissue disease (5 sources) Nontraumatic complete rupture of rotator cuff of left shoulder; Translations: [Complete rotator cuff tear or rupture of left shoulder, not specified as traumatic] Onset: 09-08-2023 09-08-2023 Episodic Other non-traumatic joint disorders (9 sources) Hip pain; Translations: [Pain in unspecified hip] Onset: 01-08-2021 04-30-2023 Episodic Screening and history of mental health and substance abuse codes (4 sources) Personal history of nicotine dependence; Translations: [PERSONAL HISTORY OF NICOTINE DEPEND] Onset: 07-21-2022 Episodic Results Test Name Value Interpretation Reference Range Facility ALL HEMOGLOBINon 07-12-2024 Hemoglobin (Bld) [Mass/Vol] 11.3 g/dL Low 12.0 - 16.0 g/dL [facility] Interpretation and review of laboratory results Abnormal [facility] VC CONSULT FOLLOWUPon 2022 VC CONSULT FOLLOWUP Patient: BLANCA MOE Exam Date: 03/03/2023 : 1960 Gender:F Ordering : DR MARIA ANTONIA CONRAD M.D. Admission #: [id number] Family : Order #: [id number] CLICK HERE TO VIEW EXAM RADIOLOGY REPORT [...] Conrad MD on 03/03/2023 at 13:46 Normal [facility] VC EXT VENOUS RT LIMITEDon 0 03-03-2023 VC EXT VENOUS RT LIMITED Patient: BLANCA MOE Exam Date: 03/03/2023 : 1960 Gender:F Ordering : DR MARIA ANTONIA CONRAD M.D. Admission #: [id number] Family : Order #: [id number] CLICK HERE TO VIEW EXAM RADIOLOGY REPORT [...] MD on 03/03/2023 at 13:10 Normal [facility] VC ENDOVENOUS ABL 1ST V RTon 02-25-2023 VC ENDOVENOUS ABL 1ST V RT Patient: BLANCA MOE Exam Date: 02/25/2023 : 1960 Gender:F Ordering : DR MARIA ANTONIA CONRAD M.D. Admission #: [id number] Family : Order #: [id number] CLICK HERE TO VIEW EXAM RADIOLOGY REPORT [...] Millan M.D. on 02/25/2023 at 15:01 Normal [facility] VC CONSULT FOLLOWUPon 2022 VC CONSULT FOLLOWUP Patient: BLANCA MOE Exam Date: 02/09/2023 : 1960 Gender:F Ordering : DR MARIA ANTONIA CONRAD M.D. Admission #: [id number] Family : Order #: [id number] CLICK HERE TO VIEW EXAM RADIOLOGY REPORT [...] Millan M.D. on 02/09/2023 at 11:43 Normal [facility] VC EXT VENOUS LT LIMITEDon 0 02-09-2023 VC EXT VENOUS LT LIMITED Patient: BLANCA MOE. Exam Date: 02/09/2023 : 1960 Gender:F Ordering : DR MARIA ANTONIA CONRAD M.D. Admission #: [id number] Family : Order #: [id number] CLICK HERE TO VIEW EXAM RADIOLOGY REPORT [...] 02/09/2023 at 11:35 Normal [facility] VC ENDOVENOUS ABL 1ST V LTon 02-02-2023 VC ENDOVENOUS ABL 1ST V LT Patient: BLANCA MOE Exam Date: 02/02/2023 : 1960 Gender:F Ordering : DR MARIA ANTONIA CONRAD M.D. Admission #: [id number] Family : Order #: [id number] CLICK HERE TO VIEW EXAM RADIOLOGY REPORT [...] on 02/02/2023 at 14:15 Approved by: Jovanni Milaln M.D. on 02/02/2023 at 14:17 Normal [facility] VC COMP CONSULTATIONon 01-08 VC COMP CONSULTATION Patient: BLANCA MOE Exam Date: 01/08/2023 : 1960 Gender:F Ordering : DR MARIA ANTONIA CONRAD M.D. Admission #: [id number] Family : Order #: [id number] CLICK HERE TO VIEW EXAM RADIOLOGY REPORT [...] saphenous, mild to moderate right small saphenous hgbe-hk-vuwnnrcy left anterior accessory saphenous vein venous insufficiency [...] Conrad MD on 01/08/2023 at 15:14 Normal [facility] VC VENOUS REFLUX SARITHA LMTon 0 01-08-2023 VC VENOUS REFLUX SARITHA LMT Patient: BLANCA MOE Exam Date: 01/08/2023 : 1960 Gender:F Ordering : DR MARIA ANTONIA CONRAD M.D. Admission #: [id number] Family : Order #: [id number] CLICK HERE TO VIEW EXAM RADIOLOGY REPORT [...] chronic thrombus visualized Compressibility: Normal Flow: Normal Medical Scribe: Dist/med calf 3.7 mm with 2.4s reflux. [...] Bilateral incompetent varicose veins 5. Left incompetent fruit coordinator veins 6. Left suprapatellar fluid collection likely joint effusion and popliteal lesion likely a cyst Dictated by: Maria Antonia Conrad MD on 01/08/2023 at 13:50 Approved by: Maria Antonia Conrad MD on 01/08/2023 at 13:52 Normal [facility] XR KNEE SARITHA 4V or >on [...] by: JOVANNI MILLAN Date: 2022-12-17 16:24 Normal [facility] XR SHOULDER SARITHA 2V or >on [...] narrowing of the glenohumeral joints with likely orot-nb-spki contact. Degenerative osteophyte along the inferior articular [...] Date: 2022-12-17 16:32 Normal [facility] CBC AUTO DIFFon 12-15-2022 BASO # 0.1 103/ul Normal 0.0-0.1 [facility] Comment on above: Performed By: #### C BC ####[facility] [address] [place] [address]Dr. Sarah Napoles Basophils/100 WBC (Bld) 0.8 % Normal 0.2-2.0 [facility] Comment on above: Performed By: #### C BC ####[facility] [address] [place] [address]DrJudy Napoles EO # 0.2 103/ul Normal 0.0-0.7 [facility] Comment on above: Performed By: #### C BC ####[facility] [address] [place] [id number] Napoles Eosinophils/100 WBC (Bld) 2.3 % Normal 0.9-7.0 [facility] Comment on above: Performed By: #### C BC ####[facility] [address] [place] [address]DrJudy Napoles Erythrocyte distribution width (RBC) [Ratio] 13.2 % Normal 11.0-15.0 [facility] Comment on above: Performed By: #### C BC ####[facility] [address] [place] [address]DrJudy Napoles Hematocrit (Bld) [Volume fraction] 34.3 % Critically low 36.0-48.0 [facility] Comment on above: Performed By: #### C BC ####[facility] [address] [place] [address]DrJudy Napoles Hemoglobin (Bld) [Mass/Vol] 11.5 g/dL Critically low 12.0-16.0 [facility] Comment on above: Performed By: #### C BC ####[facility] [address] [place], [place] [address]DrJudy Napoles IG # 0.02 10e3/ul Normal 0.00-0.03 [facility] Comment on above: Performed By: #### C BC ####[facility] [address] [place], [place] [address]DrJudy Napoles IG % 0.2 % Normal 0.0-0.5 [facility] Comment on above: Performed By: #### C BC ####[facility] [address] [place], [place] [address]DrJudy Napoles LYMPH # 1.8 103/ul Normal 1.2-3.8 [facility] Comment on above: Performed By: #### C BC ####[facility] [address] [place], [place] [address]DrJudy Napoles Lymphocytes/100 WBC (Bld) 19.8 % Critically low 20.5-60.0 [facility] Comment on above: Performed By: #### C BC ####[facility] [address] [place], [place] [address]DrJudy Napoles MANUAL DIFF REQ NO Normal [facility] Comment on above: Performed By: #### C BC ####[facility] [address] [place], [place] [address]DrJudy Napoles MCH (RBC) [Entitic mass] 32.2 pg Normal 26.7-34.0 [facility] Comment on above: Performed By: #### C BC ####[facility] [address] [place] [address]Dr. Sarah Napoles MCHC (RBC) [Mass/Vol] 33.5 g/dL Normal 29.9-35.2 [facility] Comment on above: Performed By: #### C BC ####[facility] [address] [place] [address]Dr. Sarah Napoles MCV (RBC) [Entitic vol] 96.1 fL Normal 81.0-99.0 [facility] Comment on above: Performed By: #### C BC ####[facility] [address] [place], [place] [address]DrJudy Napoles MONO # 0.8 103/ul Normal 0.3-0.8 [facility] Comment on above: Performed By: #### C BC ####[facility] [address] [place], [place] [address]Dr. Sarah Napoles Monocytes/100 WBC (Bld) 9.5 % Normal 1.7-12.0 [facility] Comment on above: Performed By: #### C BC ####[facility] [address] [place], [place] [address]DrJudy Napoles NEUT # 6.0 103/ul Normal 1.4-6.5 [facility] Comment on above: Performed By: #### C BC ####[facility] [address] [place], [place] [address]Dr. Sarah Napoles Neutrophils/100 WBC (Bld) 67.4 % Normal 43.0-75.0 [facility] Comment on above: Performed By: #### C BC ####[facility] [address] [place], [place] [address]DrJudy Napoles Platelet mean volume (Bld) [Entitic vol] 10.1 fL Normal 9.5-13.5 [facility] Comment on above: Performed By: #### C BC ####[facility] [address] [place], [place] [address]Dr. Sarah Napoles PLT 283 103/ul Normal 150-450 [facility] Comment on above: Performed By: #### C BC ####[facility] [address] [place] [id number]. Sarah Napoles RBC 3.57 106/ul Critically low 4.20-5.40 [facility] Comment on above: Performed By: #### C BC ####[facility] [address] [place] [id number]. Sarah Napoles WBC 8.8 103/ul Normal 4.0-11.0 [facility] Comment on above: Performed By: #### C BC ####[facility] [address] [place] [address]Dr. Sarah Napoles GLYCOHEMOGLOBIN A1Con 2022 ADA RECOMMENDATION SEE BELOW Normal [facility] Comment on above: Result Comment: ADA RECOMMENDED LIMIT 4.0 - 6.0 ADA THERAPEUTIC TARGET < 7.0 ACTION SUGGESTED > 7.0 Performed By: #### A 1C ####[facility] [address] [place] [address]Dr. Sarah Napoles Glucose [Mass/Vol] 105 mg/dL Normal [facility] Comment on above: Performed By: #### A 1C ####[facility] [address] [place] [address]Dr. Sarah Napoles HbA1c (Bld) [Mass fraction] 5.3 % Normal 4.5-6.2 [facility] Comment on above: Performed By: #### A 1C ####[facility] [address] [place] [address]Dr. Sarah Napoles LIPID PROFILEon 12-15-2022 CHOL-HDL RATIO NORM SEE BELOW Normal [facility] Comment on above: Result Comment: 3.3 - 4.4 LOW RISK 4.4 - 7.1 AVERAGE RISK 7.1 - 11.0 MODERATE RISK >11.0 HIGH RISK Performed By: #### L IPID, CMP, URIC ####[facility] [address] [place] [address]Dr. Sarah Napoles Cholesterol [Mass/Vol] 160 mg/dL Normal <=200 [facility] Comment on above: Performed By: #### L IPID, CMP, URIC ####[facility] [address] [place] [id number]. Sarah Napoles Cholesterol in HDL [Mass/Vol] 62 mg/dL Critically high 40-60 [facility] Comment on above: Performed By: #### L IPID, CMP, URIC ####[facility] [address] [place] [id number]. Sarah Napoles Cholesterol in LDL [Mass/Vol] 75.2 mg/dL Normal [facility] Comment on above: Performed By: #### L IPID, CMP, URIC ####[facility] [address] [place] [address]Dr. Charlinecassie Dony Cholesterol.total/Ch olesterol in HDL [Mass ratio] 2.6 {ratio} Normal [facility] Comment on above: Performed By: #### L IPID, CMP, URIC ####[facility] [address] [place] [address]Dr. Sarah Napoles HDL NORMAL > or = 60 mg/dl - LO W CARDIOVASCULAR RISK <40 mg/dl - HIGH CARDIOVASCULAR RISK Normal [facility] Comment on above: Performed By: #### L IPID, CMP, URIC ####[facility] [address] [place] [address]Dr. Sarah Napoles LDL CALC NORMAL SEE BELOW Normal [facility] Comment on above: Result Comment: <100 mg/dl OPTIMAL 100 - 129 mg/dl NEAR OR ABOVE OPTIMAL 130 - 159 mg/dl BORDERLINE HIGH 160 - 189 mg/dl HIGH >190 mg/dl VERY HIGH Performed By: #### L IPID, CMP, URIC ####[facility] [address] [place] [id number]. Charlinecassie Napoles Triglyceride [Mass/Vol] 114 mg/dL Normal <=150 [facility] Comment on above: Performed By: #### L IPID, CMP, URIC ####[facility] [address] [place] [id number]. Sarah Napoles VLDL CALC 22.8 mg/dL Normal [facility] Comment on above: Performed By: #### L IPID, CMP, URIC ####[facility] [address] [place], [place] [address]XnDr. Sarah Napoles PROF 14(COMP METB)on 023 Albumin [Mass/Vol] 4.3 g/dL Normal 3.4-5.0 [facility] Comment on above: Performed By: #### L IPID, CMP, URIC #### [facility] [address] [address] [address] Sarah Napoles Albumin/Globulin [Mass ratio] 1.3 {ratio} Normal [facility] Comment on above: Performed By: #### L IPID, CMP, URIC #### [facility] [address] [address] [address] Sarah Napoles ALP [Catalytic activity/Vol] 71 U/L Normal 46-116 [facility] Comment on above: Performed By: #### L IPID, CMP, URIC #### [facility] [address] [address] [address] Sarah Napoles ALT [Catalytic activity/Vol] 25 U/L Normal 14-59 [facility] Comment on above: Performed By: #### L IPID, CMP, URIC #### [facility] [address] [address] [address] Sarah Napoles Anion gap [Moles/Vol] 11.8 mmol/L Normal [facility] Comment on above: Performed By: #### L IPID, CMP, URIC #### [facility] [address] [address] [address] Sarah Napoles AST [Catalytic activity/Vol] 22 U/L Normal 15-37 [facility] Comment on above: Performed By: #### L IPID, CMP, URIC #### [facility] [address] [address] [address] Sarah Napoles Bilirubin [Mass/Vol] 0.3 mg/dL Normal 0.2-1.0 [facility] Comment on above: Performed By: #### L IPID, CMP, URIC #### [facility] [address] [address] [address] Sarah Napoles Calcium [Mass/Vol] 9.8 mg/dL Normal 8.5-10.1 [facility] [place] [facility] Comment on above: Performed By: #### L IPID, CMP, URIC #### [facility] [address] [address] [address] Sarah Napoles Chloride [Moles/Vol] 101 mmol/L Normal 98-107 [facility] Comment on above: Performed By: #### L IPID, CMP, URIC #### [facility] [address] [address] [address] Sarah Napoles CO2 [Moles/Vol] 29.5 mmol/L Normal 21.0-32.0 [facility] Comment on above: Performed By: #### L IPID, CMP, URIC #### [facility] [address] [place] [address] Dr. Sarah Napoles Creatinine [Mass/Vol] 0.63 mg/dL Normal 0.55-1.02 [facility] Comment on above: Performed By: #### L IPID, CMP, URIC #### [facility] [address] [place] [address] Dr. Sarah Napoles EGFR-AF NEPALESE >60 Normal >=60 [facility] Comment on above: Performed By: #### L IPID, CMP, URIC #### [facility] [address] [place] [address] Dr. Sarah Napoles EGFR-NON AF NEPALESE >60 Normal >=60 [facility] Comment on above: Performed By: #### L IPID, CMP, URIC #### [facility] [address] [address] [address] Saarh Napoles Globulin (S) [Mass/Vol] 3.4 g/dL Normal [facility] Comment on above: Performed By: #### L IPID, CMP, URIC #### [facility] [address] [address] [address] Sarah Napoles Glucose [Mass/Vol] 92 mg/dL Normal 74-106 [facility] Comment on above: Performed By: #### L IPID, CMP, URIC #### [facility] [address] [address] [address] Sarah Napoles Potassium [Moles/Vol] 4.3 mmol/L Normal 3.5-5.1 [facility] Comment on above: Performed By: #### L IPID, CMP, URIC #### [facility] [address] [address] [address] aSrah Napoles Protein [Mass/Vol] 7.7 g/dL Normal 6.4-8.2 [facility] Comment on above: Performed By: #### L IPID, CMP, URIC #### [facility] [address] [address] [address] Sarah Napoles Sodium [Moles/Vol] 138 mmol/L Normal 136-145 [facility] Comment on above: Performed By: #### L IPID, CMP, URIC #### [facility] [address] [address] [address] Sarah Napoles Urea nitrogen [Mass/Vol] 25.0 mg/dL Critically high 7.0-18.0 [facility] Comment on above: Performed By: #### L IPID, CMP, URIC #### [facility] [address] [address] [address] Sarah Napoles Urea nitrogen/Creatinine [Mass ratio] 39.7 mg/mg Normal [facility] Comment on above: Performed By: #### L IPID, CMP, URIC #### [facility] [address] [address] [address] Sarah Napoles URIC ACID SERUMon 12-15-2022 Urate [Mass/Vol] 3.7 mg/dL Normal 2.6-6.0 [facility] Comment on above: Performed By: #### L IPID, CMP, URIC ####[facility] [address] [place] [id number]. Sarah Napoles CT LUNG CANCER SCREENINGon CT LUNG CANCER SCREENING EXAMINATION: CT LUNG [...] Date: 2022-07-21 22:18 Normal [facility] CBC AUTO DIFFon 06-16-2022 BASO # 0.1 103/ul Normal 0.0-0.1 [facility] Comment on above: Performed By: #### C BC ####[facility] [address] [place], [place] [address]Dr. Sarah Napoles Basophils/100 WBC (Bld) 0.9 % Normal 0.2-2.0 [facility] Comment on above: Performed By: #### C BC ####[facility] [address] [place], [place] [address]DrJudy Napoles EO # 0.2 103/ul Normal 0.0-0.7 [facility] Comment on above: Performed By: #### C BC ####[facility] S[address] [place], [place] [address]DrJudy Napoles Eosinophils/100 WBC (Bld) 2.5 % Normal 0.9-7.0 [facility] Comment on above: Performed By: #### C BC ####[facility] [address]uf[address]ls[address] [place], [place] [address]DrJudy Napoles Erythrocyte distribution width (RBC) [Ratio] 13.4 % Normal 11.0-15.0 [facility] Comment on above: Performed By: #### C BC ####[facility] [address]pet[address] [place], [place] [address]DrJudy Napoles Hematocrit (Bld) [Volume fraction] 33.3 % Critically low 36.0-48.0 [facility] Comment on above: Performed By: #### C BC ####[facility] [address] [place] [address]Dr. Sarah Napoles Hemoglobin (Bld) [Mass/Vol] 10.8 g/dL Critically low 12.0-16.0 [facility] Comment on above: Performed By: #### C BC ####[facility] Nfthlwsph[address] [place], [place] [address]Dr. Sarah Napoles IG # 0.03 10e3/ul Normal 0.00-0.03 [facility] Comment on above: Performed By: #### C BC ####[facility] [address] [place], [place] [address]Dr. Sarah Napoles IG % 0.4 % Normal 0.0-0.5 [facility] Comment on above: Performed By: #### C BC ####[facility] [address]fe[address] [place], [place] [address]Dr. Sarah Napoles LYMPH # 1.7 103/ul Normal 1.2-3.8 [facility] Comment on above: Performed By: #### C BC ####[facility] Iixrwmgw[address] [place], [place] [address]Dr. Sarah Napoles Lymphocytes/100 WBC (Bld) 20.4 % Critically low 20.5-60.0 [facility] Comment on above: Performed By: #### C BC ####[facility] [address] [place], [place] [address]Dr. Sarah Napoles MANUAL DIFF REQ NO Normal [facility] Comment on above: Performed By: #### C BC ####[facility] C[address]uc[address]qs[address] [place], [place] [address]Dr. Sarah Napoles MCH (RBC) [Entitic mass] 32.0 pg Normal 26.7-34.0 [facility] Comment on above: Performed By: #### C BC ####[facility] Cszdn[address]vs[address] [place], [place] [address]Dr. Sarah Napoles MCHC (RBC) [Mass/Vol] 32.4 g/dL Normal 29.9-35.2 [facility] Comment on above: Performed By: #### C BC ####[facility] Oxxmlixsqt[address] [place], [place] [address]Dr. Sarah Dony MCV (RBC) [Entitic vol] 98.8 fL Normal 81.0-99.0 [facility] Comment on above: Performed By: #### C BC ####[facility] Pfizux[address]md[address] [place], [place] [address]DrJudy Napoles MONO # 0.9 103/ul Critically high 0.3-0.8 [facility] Comment on above: Performed By: #### C BC ####[facility] Liztyrnazj[address] [place], [place] [address]Dr. Sarah Napoles Monocytes/100 WBC (Bld) 11.0 % Normal 1.7-12.0 [facility] Comment on above: Performed By: #### C BC ####[facility] F[address]atwcn[address] [place], [place] [address]Dr. Sarah Napoles NEUT # 5.3 103/ul Normal 1.4-6.5 [facility] Comment on above: Performed By: #### C BC ####[facility] [address]im[address]po[address] [place], [place] [address]Dr. Sarah Napoles Neutrophils/100 WBC (Bld) 64.8 % Normal 43.0-75.0 [facility] Comment on above: Performed By: #### C BC ####[facility] Nvdwobdrap[address] [place], [place] [address]Dr. Sarah Napoles Platelet mean volume (Bld) [Entitic vol] 10.8 fL Normal 9.5-13.5 [facility] Comment on above: Performed By: #### C BC ####[facility] [address] [place], [place] [address]Dr. Sarah Napoles PLT 262 103/ul Normal 150-450 [facility] Comment on above: Performed By: #### C BC ####[facility] [address]vwh[address] [place], [place] [address]Dr. Sarah Napoles RBC 3.37 106/ul Critically low 4.20-5.40 [facility] Comment on above: Performed By: #### C BC ####[facility] [address] [place], [place] [address]DiJudy Sarah Napoles WBC 8.1 103/ul Normal 4.0-11.0 [facility] Comment on above: Performed By: #### C BC ####[facility] [address] [place] [id number] Napoles GLYCOHEMOGLOBIN A1Con 2021 ADA RECOMMENDATION SEE BELOW Normal [facility] Comment on above: Result Comment: ADA RECOMMENDED LIMIT 4.0 - 6.0 ADA THERAPEUTIC TARGET < 7.0 ACTION SUGGESTED > 7.0 Performed By: #### A 1C ####[facility] [address] [place] [id number]. Sarah Napoles Glucose [Mass/Vol] 108 mg/dL Normal [facility] Comment on above: Performed By: #### A 1C ####[facility] [address] [place], [place] [address]Dr. Sarah Napoles HbA1c (Bld) [Mass fraction] 5.4 % Normal 4.5-6.2 [facility] Comment on above: Performed By: #### A 1C ####[facility] [address] [place] [id number]. Sarah Napoles LIPID PROFILEon 06-16-2022 CHOL-HDL RATIO NORM SEE BELOW Normal [facility] Comment on above: Result Comment: 3.3 - 4.4 LOW RISK 4.4 - 7.1 AVERAGE RISK 7.1 - 11.0 MODERATE RISK >11.0 HIGH RISK Performed By: #### C MP, LIPID #### [facility] [address] [id number] [address] Sarah Napoles Cholesterol [Mass/Vol] 147 mg/dL Normal <=200 [facility] Comment on above: Performed By: #### C MP, LIPID #### [facility] [address] [id number] Sarah Napoles Cholesterol in HDL [Mass/Vol] 58 mg/dL Normal 40-60 [facility] Comment on above: Performed By: #### C MP, LIPID #### [facility] [address] [address] [address] Sarah Napoles Cholesterol in LDL [Mass/Vol] 68.0 mg/dL Normal [facility] Comment on above: Performed By: #### C MP, LIPID #### [facility] [address] [address] [address] Sarah Napoles Cholesterol.total/Ch olesterol in HDL [Mass ratio] 2.5 {ratio} Normal [facility] Comment on above: Performed By: #### C MP, LIPID #### [facility] [address] [place] [address] Dr. Sarah Napoles HDL NORMAL > or = 60 mg/dl - LO W CARDIOVASCULAR RISK <40 mg/dl - HIGH CARDIOVASCULAR RISK Normal [facility] Comment on above: Performed By: #### C MP, LIPID #### [facility] [address] [place] [address] Dr. Sarah Napoles LDL CALC NORMAL SEE BELOW Normal [facility] Comment on above: Result Comment: <100 mg/dl OPTIMAL 100 - 129 mg/dl NEAR OR ABOVE OPTIMAL 130 - 159 mg/dl BORDERLINE HIGH 160 - 189 mg/dl HIGH >190 mg/dl VERY HIGH Performed By: #### C MP, LIPID #### [facility] [address] [place] [address] Dr. Sarah Napoles Triglyceride [Mass/Vol] 105 mg/dL Normal <=150 [facility] Comment on above: Performed By: #### C MP, LIPID #### [facility] [address] [place] [address] Dr. Sarah Napoles VLDL CALC 21.0 mg/dL Normal [facility] Comment on above: Performed By: #### C MP, LIPID #### [facility] [address] [place] [address] Dr. Sarah Napoles PROF 14(COMP METB)on 022 Albumin [Mass/Vol] 4.0 g/dL Normal 3.4-5.0 [facility] Comment on above: Performed By: #### C MP, LIPID #### [facility] [address] [address] [address] Sarah Napoles Albumin/Globulin [Mass ratio] 1.2 {ratio} Normal [facility] Comment on above: Performed By: #### C MP, LIPID #### [facility] [address] [address] [address] Sarah Napoles ALP [Catalytic activity/Vol] 53 U/L Normal 46-116 [facility] Comment on above: Performed By: #### C MP, LIPID #### [facility] [address] [address] [address] Sarah Napoles ALT [Catalytic activity/Vol] 32 U/L Normal 14-59 [facility] Comment on above: Performed By: #### C MP, LIPID #### [facility] [address] [address] [address] Sarah Napoles Anion gap [Moles/Vol] 8.0 mmol/L Normal [facility] Comment on above: Performed By: #### C MP, LIPID #### [facility] [address] [address] [address] Sarah Napoles AST [Catalytic activity/Vol] 23 U/L Normal 15-37 [facility] Comment on above: Performed By: #### C MP, LIPID #### [facility] [address] [address] [address] Sarah Napoles Bilirubin [Mass/Vol] 0.4 mg/dL Normal 0.2-1.0 [facility] Comment on above: Performed By: #### C MP, LIPID #### [facility] [address] [address] [address] Sarah Napoles Calcium [Mass/Vol] 9.4 mg/dL Normal 8.5-10.1 [facility] Comment on above: Performed By: #### C MP, LIPID #### [facility] [address] [address] [address] Sarah Napoles Chloride [Moles/Vol] 100 mmol/L Normal 98-107 [facility] Comment on above: Performed By: #### C MP, LIPID #### [facility] [address] [address] [address] Sarah Napoles CO2 [Moles/Vol] 30.8 mmol/L Normal 21.0-32.0 [facility] Comment on above: Performed By: #### C MP, LIPID #### [facility] [address] [address] [address] Sarah Napoles Creatinine [Mass/Vol] 0.68 mg/dL Normal 0.55-1.02 [facility] Comment on above: Performed By: #### C MP, LIPID #### [facility] [address] [address] [address] Sarah Napoles EGFR-AF NEPALESE >60 Normal >=60 [facility] Comment on above: Performed By: #### C MP, LIPID #### [facility] [address] [place] [address] Dr. Sarah Napoles EGFR-NON AF NEPALESE >60 Normal >=60 [facility] Comment on above: Performed By: #### C MP, LIPID #### [facility] [address] [place] [address] Dr. Sarah Napoles Globulin (S) [Mass/Vol] 3.3 g/dL Normal [facility] Comment on above: Performed By: #### C MP, LIPID #### [facility] [address] [place] [address] Dr. Sarah Napoles Glucose [Mass/Vol] 90 mg/dL Normal 74-106 [facility] Comment on above: Performed By: #### C MP, LIPID #### [facility] [address] [place] [address] Dr. Sarah Napoles Potassium [Moles/Vol] 3.8 mmol/L Normal 3.5-5.1 [facility] Comment on above: Performed By: #### C MP, LIPID #### [facility] [address] [address] [address] Sarah Napoles Protein [Mass/Vol] 7.3 g/dL Normal 6.4-8.2 [facility] Comment on above: Performed By: #### C MP, LIPID #### [facility] [address] [address] [address] Sarah Napoles Sodium [Moles/Vol] 135 mmol/L Critically low 136-145 [facility] e [facility] Comment on above: Performed By: #### C MP, LIPID #### [facility] [address] [address] [address] Sarah Napoles Urea nitrogen [Mass/Vol] 13.0 mg/dL Normal 7.0-18.0 [facility] Comment on above: Performed By: #### C MP, LIPID #### [facility] [address] [address] [address] Sarah Napoles Urea nitrogen/Creatinine [Mass ratio] 19.1 mg/mg Normal [facility] Comment on above: Performed By: #### C MP, LIPID #### [facility] [address] [address] [address] Sarah Napoles POC GLUCOSE LABon 01-03-2021 Glucose [Mass/Vol] 119 mg/dL High 70-100 [facility] on above: Performed By: #### 8 [id number] #### [facility] [address] [place] [address], [place] Glucose [Mass/Vol] 145 mg/dL High 70-100 [facility] Comment on above: Performed By: #### 8 [id number] #### [facility] [address] [place] [address], [place] Glucose [Mass/Vol] 93 mg/dL Normal 70-100 [facility] Comment on above: Performed By: #### 8 [id number] #### [facility] [address] [place] [address], [place] Glucose [Mass/Vol] 99 mg/dL Normal 70-100 The [facility] Comment on above: Performed By: #### 8 [id number] #### [facility] [address] [place] [address], [place] POC GLUCOSE LABon 01-02-2021 Glucose [Mass/Vol] 101 mg/dL High 70-100 [facility] Comment on above: Performed By: #### 8 [id number] #### [facility] [address] [place] [address], [place] Glucose [Mass/Vol] 127 mg/dL High 70-100 [facility] Comment on above: Performed By: #### 8 [id number] #### [facility] [address] [place] [address], [place] Glucose [Mass/Vol] 110 mg/dL High 70-100 [facility] Comment on above: Performed By: #### 8 [id number] #### [facility] [address] [place] [address], [facility] BASIC METABOLIC PANELon 03-3 0-2020 Calcium [Mass/Vol] 8.4 mg/dL Low 8.6-10.3 The [facility] Comment on above: Order Comment: No: D o not add to previous draw Performed By: #### 8 [id number] #### [facility] [address] [place] [address], [place] Chloride [Moles/Vol] 106 mmol/L Normal 98-107 The [facility] Comment on above: Order Comment: No: D o not add to previous draw Performed By: #### 8 [id number] #### [facility] [address] [place] [address], [place] CO2 [Moles/Vol] 29 mmol/L Normal 21-31 The [facility] Comment on above: Order Comment: No: D o not add to previous draw Performed By: #### 8 [id number] #### [facility] [address] [place] [address], [place] Creatinine [Mass/Vol] 0.50 mg/dL Low 0.60-1.20 The [facility] Comment on above: Order Comment: No: D o not add to previous draw Performed By: #### 8 [id number] #### [facility] [address] [place] [address], [place] GFR/1.73 sq M.predicted among blacks MDRD (S/P/Bld) [Vol rate/Area] mL/min/{1.73_m2} Normal >60 The [facility] Comment on above: Order Comment: No: D o not add to previous draw Performed By: #### 8 [id number] #### [facility] [address] [place] [address], [place] GFR/1.73 sq M.predicted among non-blacks MDRD (S/P/Bld) [Vol rate/Area] mL/min/{1.73_m2} Normal >60 The [facility] Comment on above: Order Comment: No: D o not add to previous draw Performed By: #### 8 [id number] #### [facility] [address] [place] [address], [place] Glucose [Mass/Vol] 88 mg/dL Normal 70-100 The [facility] Comment on above: Order Comment: No: D o not add to previous draw Performed By: #### 8 [id number] #### [facility] [address] [place] [address], [place] Potassium [Moles/Vol] 3.3 mmol/L Low 3.5-5.1 The [facility] Comment on above: Order Comment: No: D o not add to previous draw Performed By: #### 8 [id number] #### [facility] [address] [place] [address], [place] Sodium [Moles/Vol] 141 mmol/L Normal 136-145 The [facility] Comment on above: Order Comment: No: D o not add to previous draw Performed By: #### 8 [id number] #### [facility] [address] [place] [address], [place] Urea nitrogen [Mass/Vol] 10 mg/dL Normal 7-25 The [facility] Comment on above: Order Comment: No: D o not add to previous draw Performed By: #### 8 [id number] #### [facility] [address] [facility] [place] [address], [facility] CBC W/DIFFon 01-01-2021 ABS IMM GRANS 0.1 10*3/uL Normal 0.0-0.2 The [facility] Comment on above: Order Comment: No: D o not add to previous draw Performed By: #### 5 0103 #### [facility] [address] [place] [address], [facility] [place] ABS NEUTROPHILS 10.1 10*3/uL High 1.6-7.6 The [facility] Comment on above: Order Comment: No: D o not add to previous draw Performed By: #### 5 0103 #### [facility] [address] [facility] [place] [address], [facility] [place] Basophils (Bld) [#/Vol] 0.0 10*3/uL Normal 0.0-0.2 The [facility] Comment on above: Order Comment: No: D o not add to previous draw Performed By: #### 5 0103 #### [facility] [address] [facility] [place] [address], [facility] [place] Basophils/100 WBC (Bld) 0.2 % Normal 0.0-1.0 The [facility] Comment on above: Order Comment: No: D o not add to previous draw Performed By: #### 5 0103 #### [facility] [address] [facility] [place] [address], [facility] [place] Eosinophils (Bld) [#/Vol] 0.0 10*3/uL Normal 0.0-0.5 The [facility] Comment on above: Order Comment: No: D o not add to previous draw Performed By: #### 5 0103 #### [facility] [address] [place] [address], [facility] [place] Eosinophils/100 WBC (Bld) 0.1 % Normal 0.0-6.0 The [facility] Comment on above: Order Comment: No: D o not add to previous draw Performed By: #### 5 0103 #### [facility] [address] [place] [address], [facility] Erythrocyte distribution width (RBC) [Ratio] 13.1 % Normal 11.5-15.0 [facility] Comment on above: Order Comment: No: D o not add to previous draw Performed By: #### 5 0103 #### [facility] [address] [place] [address], [facility] Hematocrit (Bld) [Volume fraction] 27.7 % Low 36.0-45.0 [facility] Comment on above: Order Comment: No: D o not add to previous draw Performed By: #### 5 0103 #### [facility] [address] [place] [id number], [facility] Hemoglobin (Bld) [Mass/Vol] 9.2 g/dL Low 12.0-15.0 [facility] Comment on above: Order Comment: No: D o not add to previous draw Result Comment: RESU LTS CHECKED Performed By: #### 5 0103 #### [facility] [address] [facility] [place] [address], [facility] IMMATURE GRANS 0.4 % Normal 0.0-1.0 The [facility] Comment on above: Order Comment: No: D o not add to previous draw Performed By: #### 5 0103 #### [facility] [address] [facility] [place] [address], [facility] Lymphocytes (Bld) [#/Vol] 1.8 10*3/uL Normal 1.2-4.0 [facility] Comment on above: Order Comment: No: D o not add to previous draw Performed By: #### 5 0103 #### [facility] [address] [place] [id number], [facility] Lymphocytes/100 WBC (Bld) 13.6 % Low 20.0-45.0 [facility] Comment on above: Order Comment: No: D o not add to previous draw Performed By: #### 5 0103 #### [facility] [address] [place] [id number], [facility] MCH (RBC) [Entitic mass] 32.4 pg Normal 27.0-33.0 [facility] Comment on above: Order Comment: No: D o not add to previous draw Performed By: #### 5 0103 #### [facility] [address] [place] [address], [facility] MCHC (RBC) [Mass/Vol] 33.2 g/dL Normal 32.0-35.0 [facility] Comment on above: Order Comment: No: D o not add to previous draw Performed By: #### 5 0103 #### [facility] [address] [place] [id number], [facility] MCV (RBC) [Entitic vol] 97.5 fL Normal 82.0-98.0 [facility] Comment on above: Order Comment: No: D o not add to previous draw Performed By: #### 5 0103 #### [facility] [address] [place] [id number], [facility] Monocytes (Bld) [#/Vol] 1.4 10*3/uL High 0.1-1.0 [facility] Comment on above: Order Comment: No: D o not add to previous draw Performed By: #### 5 0103 #### [facility] [address] [place] [address], [facility] MONOS 10.1 % Normal 5.0-12.0 [facility] Comment on above: Order Comment: No: D o not add to previous draw Performed By: #### 5 0103 #### [facility] [address] [place] [id number], [facility] Neutrophils/100 WBC (Bld) 75.6 % High 40.0-72.0 [facility] Comment on above: Order Comment: No: D o not add to previous draw Performed By: #### 5 0103 #### [facility] [address] [place] [address], [facility] Nucleated RBC/100 WBC (Bld) [Ratio] 0 % Normal 0-0 [facility] Comment on above: Order Comment: No: D o not add to previous draw Performed By: #### 5 0103 #### [facility] [address] [place] [address], [facility] PLAT CNT 237 10*3/uL Normal 150-400 The [facility] Comment on above: Order Comment: No: D o not add to previous draw Performed By: #### 5 0103 #### [facility] [address] [place] [address], [facility] RBC (Bld) [#/Vol] 2.84 10*6/uL Low 3.80-5.00 The [facility] Comment on above: Order Comment: No: D o not add to previous draw Performed By: #### 5 0103 #### [facility] [address] [facility] [place] [address], [facility] WBC (Bld) [#/Vol] 13.43 10*3/uL High 4.00-10.60 [facility] Comment on above: Order Comment: No: D o not add to previous draw Performed By: #### 5 0103 #### [facility] [address] [facility] [place] [address], [facility] POC GLUCOSE LABon 01-01-2021 Glucose [Mass/Vol] 115 mg/dL High 70-100 The [facility] Comment on above: Performed By: #### 8 [id number] #### [facility] [address] [place] [address], [facility] Glucose [Mass/Vol] 110 mg/dL High 70-100 The [facility] Comment on above: Performed By: #### 8 [id number] #### [facility] [address] [facility] [place] [address], [facility] Glucose [Mass/Vol] 111 mg/dL High 70-100 [facility] Comment on above: Performed By: #### 8 [id number] #### [facility] [address] [place] [address], [facility] Glucose [Mass/Vol] 102 mg/dL High 70-100 The [facility] Comment on above: Performed By: #### 8 [id number] #### [facility] [address] [place] [address], [facility] HIP RIGHT 1 OR 2 VWS WITH PE LVISon 12-31-2020 HIP RIGHT 1 OR 2 VWS WITH PELVIS [facility] Department of Radiology [address] [place] [phone] Patient Name: BLANCA MOE : 1960 Sex: F Age: Race: White [...] reports Electronically signed: Panda Smith. Transcribed by: [email or web address], User Resident: SCHUYLER RODRIGUES Electronically Signed by: PANDA SMITH @ 12/31/2020 04:29 PM I personally read this/these film(s) with this resident Normal [facility] Comment on above: Order Comment: RIGHT ANTERIOR TOTAL HIP REPLACEMENT Operative Reporton Operative Report MR#: [id number] I [facility] Pt. Name: Blanca Moe Room #: [id number] Discharge Date: Birthdate: 1960 OPERATIVE REPORT DATE [...] right hip pain despite nonoperative measures. Has [id number] osteoarthritis of the right hip with subchondral [...] Roberts M.D. Date Trans: 12/31/2020 09:28 P/mmo [id number] Normal [facility] POC GLUCOSE LABon 12-31-2020 Glucose [Mass/Vol] 167 mg/dL High 70-100 [facility] Comment on above: Performed By: #### 8 [id number] #### [facility] [address] [place] [address], [place] Glucose [Mass/Vol] 162 mg/dL High 70-100 The [facility] Comment on above: Performed By: #### 8 [id number] #### [facility] [address] [place] [address], [place] Glucose [Mass/Vol] 168 mg/dL High 70-100 The [facility] Comment on above: Performed By: #### 8 [id number] #### [facility] [address] [place] [address], [place] Glucose [Mass/Vol] 104 mg/dL High 70-100 The [facility] Comment on above: Performed By: #### 8 [id number] #### [facility] [address] [place] [address], [place] PORTABLE HIP RIGHT 1 OR 2 VW S WITH PELVISon 12-31-2020 PORTABLE HIP RIGHT 1 OR 2 VWS WITH PELVIS [facility] Department of Radiology [address] [place] [phone] Patient Name: BLANCA MOE : 1960 Sex: F Age: Race: White [...] fracture Electronically signed: Panda Smith. Transcribed by: [email or web address], User Resident: Electronically Signed by: PANDA SMITH @ 12/31/2020 01:05 PM Normal [facility] Comment on above: Order Comment: Hardw are Evaluation, PACU *MRSA/MSSA DNA NASALon 12-10 *MRSA/MSSA DNA NASAL Clinical Report: (D ) Specimen: NASAL SWAB Collected: 12/10/2020 13:55 Status: Final Last Updated: 12/11/2020 15:48 MSSA DNA (Final) Negative MRSA DNA (Final) Negative Normal [facility] Comment on above: Performed By: #### 8 [id number] #### [facility] [address] [place] [address], [facility] CBC W/DIFFon 12-10-2020 ABS IMM GRANS 0.0 10*3/uL Normal 0.0-0.2 The [facility] Comment on above: Performed By: #### 8 [id number] #### [facility] [address] [place] [address], [facility] ABS NEUTROPHILS 7.7 10*3/uL High 1.6-7.[address] [facility] Comment on above: Performed By: #### 8 [id number] #### [facility] [address] [facility] [place] [address], [facility] Basophils (Bld) [#/Vol] 0.1 10*3/uL Normal 0.0-0.2 [facility] Comment on above: Performed By: #### 8 [id number] #### [facility] [address] [facility] [place] [address], [facility] Basophils/100 WBC (Bld) 0.6 % Normal 0.0-1.0 [facility] Comment on above: Performed By: #### 8 [id number] #### [facility] [address] [facility] [place] [address], [facility] Eosinophils (Bld) [#/Vol] 0.1 10*3/uL Normal 0.0-0.5 [facility] Comment on above: Performed By: #### 8 [id number] #### [facility] [address] [facility] [place] [address], [facility] Eosinophils/100 WBC (Bld) 1.0 % Normal 0.0-6.0 [facility] Comment on above: Performed By: #### 8 [id number] #### [facility] [address] [place] [address], [facility] Erythrocyte distribution width (RBC) [Ratio] 13.0 % Normal 11.5-15.0 [facility] Comment on above: Performed By: #### 8 [id number] #### [facility] [address] [place] [address], [facility] Hematocrit (Bld) [Volume fraction] 36.2 % Normal 36.0-45.0 [facility] Comment on above: Performed By: #### 8 [id number] #### [facility] [address] [place] [id number], [facility] Hemoglobin (Bld) [Mass/Vol] 11.9 g/dL Low 12.0-15.0 [facility] Comment on above: Performed By: #### 8 [id number] #### [facility] [address] [place] [address], [facility] IMMATURE GRANS 0.3 % Normal 0.0-1.0 [facility] Comment on above: Performed By: #### 8 [id number] #### [facility] [address] [facility] [place] [address], [facility] Lymphocytes (Bld) [#/Vol] 1.5 10*3/uL Normal 1.2-4.0 [facility] Comment on above: Performed By: #### 8 [id number] #### [facility] [address] [place] [address], [facility] Lymphocytes/100 WBC (Bld) 15.1 % Low 20.0-45.0 [facility] Comment on above: Performed By: #### 8 [id number] #### [facility] [address] [place] [id number], [facility] MCH (RBC) [Entitic mass] 31.9 pg Normal 27.0-33.0 [facility] Comment on above: Performed By: #### 8 [id number] #### [facility] [address] [place] [id number], [facility] MCHC (RBC) [Mass/Vol] 32.9 g/dL Normal 32.0-35.0 [facility] Comment on above: Performed By: #### 8 [id number] #### [facility] [address] [place] [address], [facility] MCV (RBC) [Entitic vol] 97.1 fL Normal 82.0-98.0 [facility] Comment on above: Performed By: #### 8 [id number] #### [facility] [address] [facility] [place] [address], [facility] Monocytes (Bld) [#/Vol] 0.7 10*3/uL Normal 0.1-1.0 [facility] Comment on above: Performed By: #### 8 [id number] #### [facility] [address] [facility] [place] [address], [facility] MONOS 7.3 % Normal 5.0-12.0 [facility] Comment on above: Performed By: #### 8 [id number] #### [facility] [address] [facility] [place] [address], [facility] Neutrophils/100 WBC (Bld) 75.7 % High 40.0-72.0 [facility] Comment on above: Performed By: #### 8 [id number] #### [facility] [address] [place] [address], [facility] Nucleated RBC/100 WBC (Bld) [Ratio] 0 % Normal 0-0 [facility] Comment on above: Performed By: #### 8 [id number] #### [facility] [address] [facility] [place] [address], [facility] PLAT CNT 290 10*3/uL Normal 150-400 The [facility] Comment on above: Performed By: #### 8 [id number] #### [facility] [address] [facility] [place] [address], [facility] RBC (Bld) [#/Vol] 3.73 10*6/uL Low 3.80-5.00 [facility] Comment on above: Performed By: #### 8 [id number] #### [facility] [address] [facility] [address], [facility] WBC (Bld) [#/Vol] 10.11 10*3/uL Normal 4.00-10.60 [facility] Comment on above: Performed By: #### 8 [id number] #### [facility] [address] [facility] [place] [address], [facility] HEMOGLOBIN A1Con 12-10-2020 Glucose [Moles/Vol] 108 mmol/L Normal [facility] Comment on above: Performed By: #### 3 1791 #### [facility] [address] [facility] [place] [address], [facility] HbA1c (Bld) [Mass fraction] 5.4 % Normal 4.0-6.0 [facility] Comment on above: Performed By: #### 3 1791 #### [facility] [address] [place], [place] [id number] [place] [address] HIP RIGHT 1 OR 2 VWS WITH PE LVISon 11-22-2020 HIP RIGHT 1 OR 2 VWS WITH PELVIS [facility] Department of Radiology [address] [place] [phone] Patient Name: BLANCA MOE : 1960 Sex: F Age: Race: White [...] exam. Electronically signed: Rodney Sutherland. Transcribed by: [email or web address], User Resident: Electronically Signed by: RODNEY SUTHERLAND @ 11/22/2020 03:43 PM Normal [facility] Comment on above: Order Comment: Evalu ate Encounters Encounter Date Encounter Type Care Provider Facility Start: 07-14-2024 End: 07-18-2024 Refill Joanna Wyman [employer] Work Phone: [facility] Comment on above: Chronic left shoulde r pain; Chronic pain of left knee Start: 07-13-2024 End: 07-13-2024 Orders Only Joanna Wyman [employer] Work Phone: [facility] Comment on above: Suspected chronic ob structive pulmonary disease based on initial evaluation (CMS/HCC) (Primary Dx); Mild intermittent asthma without complication (CMS/HCC) Start: 07-12-2024 End: 07-12-2024 Clinisync Result Encounter Joanna Wyman [employer] Work Phone: [facility] Unsolicited Start: 07-12-2024 End: 07-12-2024 Clinisync Result Encounter Joanna Wyman [employer] Work Phone: [facility] Unsolicited Start: 07-07-2024 End: 07-07-2024 Orders Only Joanna Wyman [employer] Work Phone: [facility] Comment on above: Suspected chronic ob structive pulmonary disease based on initial evaluation (CMS/HCC) (Primary Dx) Start: 06-27-2024 End: 06-27-2024 ambulatory Chikis May MD Facility: [facility] Start: 06-14-2024 End: 06-14-2024 ambulatory JOANNA WYMAN Not Available Start: 05-02-2024 End: 05-02-2024 ambulatory Chikis May MD Facility: [facility] Start: 03-15-2024 Preoperative state Joanna sheikh [employer] Work Phone: [facility] Start: 03-15-2024 End: 03-15-2024 ambulatory SHAIKH REYES Not Available Start: 12-10-2023 End: 12-10-2023 ambulatory WIHTFIELD FAWWAD Not Available Start: 11-12-2023 Orders Only Shaikh Reyes PALACIO Work Phone: [facility] Comment on above: Chronic left shoulde r pain; Chronic pain of left knee Start: 11-09-2023 End: 11-09-2023 ambulatory Chikis May MD Facility: [facility] Start: 09-08-2023 End: 09-08-2023 ambulatory WHITFIELD FAWWAD Not Available Start: 09-08-2023 Patient encounter procedure Shaikh Reyes PALACIO Work Phone: [facility] Start: 03-03-2023 End: 03-04-2023 ambulatory WHITFIELD H FAWWAD Facility:[facility] Start: 02-25-2023 End: 02-26-2023 ambulatory WHITFIELD H GIOVANIWWAD Facility:[facility] Start: 02-09-2023 End: 02-10-2023 ambulatory WHITFIELD H FAWWAD Facility:[facility] Start: 02-02-2023 End: 02-03-2023 ambulatory SHAIKH Gerson [facility] Facility:[facility] Start: 01-08-2023 End: 01-09-2023 ambulatory SHAIKH Gerson [facility] Facility:[facility] Start: 12-17-2022 End: 12-18-2022 ambulatory WHITFIELDASHLEE [facility] Facility:[facility] Start: 12-15-2022 End: 12-16-2022 ambulatory SHAIKH Gerson [place] Facility:[facility] Start: 07-21-2022 End: 07-22-2022 ambulatory SHAIKH Gerson [place] Facility:[facility] Start: 06-16-2022 End: 06-17-2022 ambulatory SHAIKH Gerson [place] Facility:[facility] Start: 12-31-2020 End: 01-03-2021 ambulatory PHYSICIAN UNKNOWN Facility:[facility] Procedures Date Procedure Procedure Detail Performing Clinician Start: 07-12-2024 ALL HEMOGLOBIN Joanna Wyman [employer] Work Phone: Start: 01-08-2024 Mammography Joanna atkinson [employer] Work Phone: Start: 09-08-2023 Mammography Shaikh Mayelin rankin MD Work Phone: Start: 12-31-2020 ANESTH HIP ARTHROPLASTY HERMINIO ROBERTS Start: 12-31-2020 JOINT DEVICE (IMPLANTABLE) HERMINIO ROBERTS Start: 12-31-2020 TOTAL HIP ARTHROPLASTY HERMINIO ROBERTS Start: 10-05-2017 Colonoscopy Shaikh Mayelin rankin MD Work Phone: Plan of Treatment Date Care Activity Detail Author Start: 2077 Urine screening for protein Diabetes: Urine Protein Screening [facility] Start: 10-05-2027 Screening for malign ant neoplasm of colon [facility] Start: 01-07-2025 Screening for malign ant neoplasm of breast Mammogram [facility] Start: 09-13-2024 End: 09-13-2024 Patient encounter procedure 09/13/2024 3:00 PM EST Office Visit [facility] [address] [place] [address] Joanna Wyman NP [address] [place] [phone] [facility] Start: 09-08-2024 Medicare Annual Wellness (AWV) Medicare Annual Wellness (AWV) [facility] Start: 09-08-2024 Screening for malign ant neoplasm of breast Mammogram [facility] Start: 07-07-2024 End: 07-07-2025 Pulmonary function report Pulmonary Function Test Imaging Routine Suspected chronic obstructive pulmonary disease based on initial evaluation ([facility]) Expected: 07/07/2024, Expires: 07/07/2025 [facility] Work Phone: Comment on above: Expected: 07/07/2024 , Expires: 07/07/2025 Start: 06-05-2024 Influenza vaccination Influenza Vacc ine (#1) [facility] Start: 12-09-2023 End: 12-09-2023 Patient encounter procedure 12/09/2023 3:30 PM EST Office Visit [facility] [address] [place] [phone] Shaikh Chambers MD [address] [place] [phone] [facility] Start: 06-05-2023 Influenza vaccination Influenza Vacc ine (#1) [facility] Start: 2023 Pneumococcal Vaccine : 65+ Years (1 - PCV) Pneumococcal Vaccine: 65+ Years (1 - PCV) [facility] Start: 1988 Screening for malign ant neoplasm of cervix [facility] Start: 1979 Screening for malign ant neoplasm of cervix Pap Smear [facility] Start: 1964 Pneumococcal Vaccine : 65+ Years (1 of 2 - PCV) Pneumococcal Vaccine: 65+ Years (1 of 2 - PCV) [facility] Start: 1958 Screening for malign ant neoplasm of colon [facility] Immunizations Immunization Date Immunization Notes Care Provider Fa cility 10-20-2022 tetanus toxoid, redu liudmila diphtheria toxoid, and acellular pertussis vaccine, adsorbed Joanna Chamberspatrick [employer] Work Phone: [facility] 10-20-2022 zoster vaccine recombinant Joanna Wyman [employer] Work Phone: [facility] 10-01-2022 influenza, injectabl e, quadrivalent, preservative free Joanna Wyman [employer] Work Phone: [facility] 10-01-2022 influenza virus vaccine, unspecified formulation Shaikh Reyes PALACIO Work Phone: [facility] 12-24-2010 hepatitis B vaccine, pediatric or pediatric/adolescent dosage Joanna Wyman [employer] Work Phone: [facility] 10-18-2010 hepatitis B vaccine, pediatric or pediatric/adolescent dosage Joanna Wyman [employer] Work Phone: [facility] 06-28-2010 hepatitis B vaccine, pediatric or pediatric/adolescent dosage Joanna Wyman [employer] Work Phone: [facility] Payers Date Payer Category Payer Unknown 2021 Medicare AN[employer]M MEDICARE ADVANTAGE AN[employer]M MEDICARE ADVANTAGE [id number] 2021-Present [address] [place] [address] [id number] 2021 Medicare (Managed Care) [facility] [id number] 1959 Unknown [id number] 1960 Unknown [id number] 2.16.840.1.833549.3.579. 2.647 1960 Unknown [id number] 2.16.840.1.923819.3.579. 2.593 1960 Unknown [id number] 2.16.840.1.518005.3.579. 2.593 1960 Unknown [id number] 2.16.840.1.482100.3.579. 2.593 1960 Unknown [id number] 2.16.840.1.770878.3.579. 2.593 1958 Unknown [id number] 2.16.840.1.662947.3.579. 2.593 1960 Unknown [id number] 2.16.840.1.368993.3.579. 2.593 1958 Unknown [id number] 2.16.840.1.129010.3.579. 2.593 1958 Unknown [id number] 2.16.840.1.469059.3.579. 2.593 1958 Unknown [id number] 2.16.840.1.361350.3.579. 2.593 1958 Unknown [id number] 2.840.1.906375.3.579. 2.1259 1958 Unknown [id number] 2.16.840.1.035118.3.579. 2.1259 1958 Unknown [id number] 2.16.840.1.688055.3.579. 2.1259 1958 Unknown [id number] 2.16.840.1.784460.3.579. 2.1259 1958 Unknown [id number] 2.16.840.1.827508.3.579. 2.196 1960 Unknown [id number] 2.16.840.1.713130.3.579. 2.196 1960 Unknown [id number] 2.16.840.1.396323.3.579. 2.196 Social History Date Type Detail Facility Start: 09-08-2023 End: 03-15-2024 Tobacco smoking status MDIS Ex-smoker [facility] Start: 12-03-1980 End: 12-03-2020 History of tobacco use Current smoker [facility] Start: 12-03-1980 End: 12-03-2020 History of tobacco use Cigarette Smoker [facility] Start: 09-08-2023 End: 06-14-2024 Cigarettes smoked current (pack per day) - Reported 1 [facility] Start: 09-08-2023 End: 03-15-2024 Tobacco use and exposure Smokeless tobacco non-user [facility] Start: 09-08-2023 End: 06-14-2024 Alcohol intake Ex-drinker (finding) [facility] Start: 09-08-2023 End: 06-14-2024 Humiliation, Afraid, Rape, and Kick questionnaire [HARK] [facility] Within the last year , have you been afraid of your partner or ex-partner? No [facility] In a typical week, h ow many times do you talk on the telephone with family, friends, or neighbors? Patient refused [facility] Do you belong to any clubs or organizations such as shinto groups, unions, fraternal or athletic groups, or [...] Tobacco Comment Last smoked 1-5 year s [facility] Start: 09-08-2023 Alcohol Comment quit 10 years ago NO [facility] Start: 1960 Sex Assigned At Not on file N [facility] History of tobacco use Passive smoker [facility] Clinical Note 12-17-2022 Note Date & [...] authenticated by: JOVANNI MILLAN Date: 2022-12-17 16:26 [facility] Evaluation note Note Date & Type Note Facility Evaluation note Diagnosis Chronic left shoulder pain Pain in joint, shoulder region Chronic pain of left knee documented in this encounter [facility] Evaluation note Note Date & Type Note Facility Evaluation note Diagnosis Suspected chronic obstructive pulmonary disease based on initial evaluation (CMS/HCC)- Primary documented in this encounter [facility] Evaluation note Note Date & Type Note Facility Evaluation note Diagnosis Suspected chronic obstructive pulmonary disease based on initial evaluation ([facility]/HCC)- Primary Mild intermittent asthma without complication (CMS/HCC) documented in this encounter [facility] Healthcare Evaluation note Note Date & Type Note Facility Evaluation note Diagnosis Primary hypertension (CMS/HCC)- Primary Unspecified essential hypertension Chronic left shoulder pain Pain in joint, shoulder region Chronic pain of left knee Encounter for Medicare annual wellness exam Mixed hyperlipidemia (CMS/HCC) Mixed hyperlipidemia Nontraumatic complete tear of left rotator cuff Screening mammogram for breast cancer Primary hypertension (CMS/HCC)- Primary Unspecified essential hypertension Chronic left shoulder pain Pain in joint, shoulder region Chronic pain of left knee Mixed hyperlipidemia (CMS/HCC) Mixed hyperlipidemia Nontraumatic complete tear of left rotator cuff Primary hypertension (CMS/HCC)- Primary Unspecified essential hypertension Mixed hyperlipidemia (CMS/HCC) Mixed hyperlipidemia Nontraumatic complete tear of left rotator cuff Pre-operative clearance Unspecified pre-operative examination Suspected chronic obstructive pulmonary disease based on initial evaluation (CMS/HCC) Pre-operative clearance- Primary Unspecified pre-operative examination Primary hypertension (CMS/HCC)- Primary Unspecified essential hypertension Symptoms of upper respiratory infection (URI) Chronic left shoulder pain Pain in joint, shoulder region Mixed hyperlipidemia (CMS/HCC) Mixed hyperlipidemia Suspected chronic obstructive pulmonary disease based on initial evaluation (CMS/HCC) Chronic pain of left knee Chronic left shoulder pain Pain in joint, [...] section and content) DATE CREATED AUTHOR 02/27/2021 [facility] DATE CREATED AUTHOR AUTHOR'S ORGANIZ ATION 03/13/[address] 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 Relationship Specialty Start Date End Date Shaikh Chambers MD PCP - General Internal Medicine 05/04/23 Glazing Machine Operator Relationship Specialty Start Date End Date Jose Guadalupe Villafuerte MD [address] [place] [address] PCP - General Family Medicine 05/12/24 Joanna Wyman NP [address] [place] [address] Nurse Practitioner Family Medicine 05/12/24 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 Machine Operator Relationship Specialty Start Date End Date Jose Guadalupe Villafuerte MD [address] [place] [address] PCP - General Family Medicine 05/12/24 Joanna Wyman NP [address] [place] [address] Nurse Practitioner Family Medicine 05/12/24 Glazing Machine Operator Relationship Specialty Start Date End Date Jose Guadalupe Villafuerte MD [address] [place] [id number] PCP - General [facility] 05/12/24 Joanna Wyman NP [address] [place] [address] Nurse Practitioner [facility] 05/12/24 Glazing Machine Operator Relationship Specialty Start Date End Date Jose Guadalupe Villafuerte MD [address] [place] [id number] PCP - General [facility] 05/12/24 Joanna Wyman NP [address] [place] [address] Nurse Practitioner [facility] 05/12/24 Reason for Visit (unrecogniz ed section and content) Reason Onset Date Comments Med Refill 07/14/2024 FOR RECORDS PERTAINING TO PATIENTS WHO ARE [...] BASED ON THE PRIMARY CLINICAL RECORDS. [facility] [email or web address] [facility]. provides no warranty or guarantee of the accuracy or completeness of information in this document.
--- NOTE | 2024-07-27 14:58 | P.CN_ITS ---
Consult Note: HPI Data of Consult Patient: known to practice within the last 3 years Consult date: 06/29/23 Requesting Physician: Deysi Zhou NP Primary Care Provider: MAISHA BRYANT Consult Narrative Reason for consult: Left neck and shoulder pain Narrative: Pleasant 64yof who presents for assessment. Notes persistence of pain from left neck and shoulder. Cervical imaging reviewed, which is significant for moderate to severe spondylosis at C5-6 and C6-7. Completed physical therapy and continues in provider directed home exercise program >6 weeks, with limited benefit. Has had left shoulder injection previously, with limited benefit. Currently taking gabapentin 300mg TID without benefit. Denies adverse medication side effects. Previously underwent left C5/6 C6/7 facet medial branch block #1 with no improvement. Patient has been evaluated by Dr Cox/Martín for left sh oulder pain, recent CT shows severe OA and chronic rotator cuff injury. Recently completed left suprascapular and axillary nerve RFA with 50% improvement ongoing. cc:: CC: Deysi Zhou NP Review of Systems ROS Status of ROS 10 or more systems reviewed and unremark able except as noted in history and below Musculoskeletal Reports: neck pain, extremity pain and joint pain Meds Home Medications and Allergies Home Medications ?Medication ?Instructions ?Recorded ?Confirmed ?Type acetaminophen 325 mg tablet 650 mg PO Q6H PRN pain 06/22/23 06/27/24 History (Tylenol) nabumetone 500 mg tablet 500 mg PO BID 06/22/23 06/27/24 History oxycodone 5 mg capsule 5 mg PO BID 06/22/23 06/27/24 History TUMERIC QDAY 06/24/23 History Vitamin B-Complex QDAY 06/24/23 History alendronate 35 mg tablet 35 mg PO QWEEK 06/24/23 06/27/24 History allopurinol 100 mg tablet 100 mg PO BID 06/24/23 06/27/24 History ascorbate calcium (vitamin C) 500 500 mg PO DAILY 06/24/23 06/27/24 History mg tablet bromelains 375 mg capsule mg PO 06/24/23 History calcium carb-ergocalciferol (vit tab PO 06/24/23 History D2) 600 mg calcium-200 unit tablet carvedilol 25 mg tablet (Coreg) 25 mg PO Q12H 06/24/23 06/27/24 History cholecalciferol (vitamin D3) 50 50 mcg PO DAILY 06/24/23 06/27/24 History mcg (2,000 unit) tablet (D3 DOTS) cinnamon bark 500 mg capsule 1,000 mg PO DAILY 06/24/23 06/27/24 History (Cinnamon) coenzyme Q10 100 mg capsule (Co 200 mg PO DAILY 06/24/23 06/27/24 History Q-10) cranberry extract 500 mg capsule 500 mg PO DAILY 06/24/23 06/27/24 History evening primrose oil 500 mg capsule 500 mg PO DAILY 06/24/23 06/27/24 History famotidine 20 mg tablet (Pepcid) 20 mg PO DAILY 06/24/23 06/27/24 History gabapentin 300 mg capsule 300 mg PO TID 06/24/23 06/27/24 History garlic 1,000 mg capsule (garlic 1,000 mg PO DAILY 06/24/23 06/27/24 History oil) ginkgo biloba 120 mg tablet 120 mg PO DAILY 06/24/23 06/27/24 History glucosamine sulfate 1,000 mg 1,000 mg PO DAILY 06/24/23 06/27/24 History capsule grape seed extract 50 mg capsule 100 mg PO DAILY 06/24/23 06/27/24 History green tea leaf extract 250 mg 500 mg PO QDAY 06/24/23 06/27/24 History capsule (Green Tea) hydrochlorothiazide 25 mg tablet 25 mg PO DAILY 06/24/23 06/27/24 History loratadine 10 mg capsule 10 mg PO DAILY 06/24/23 06/27/24 History losartan 100 mg tablet 100 mg PO DAILY 06/24/23 06/27/24 History melatonin 10 mg tablet 20 mg PO DAILY 06/24/23 06/27/24 History multivitamin 1 tab PO DAILY 06/24/23 06/27/24 History omega 0-fhq-cul-fish oil 1,000 mg 2 cap PO DAILY 06/24/23 06/27/24 History (120 mg-180 mg) capsule (Fish Oil) paroxetine HCl 10 mg tablet (Paxil) 10 mg PO DAILY 06/24/23 06/27/24 History simvastatin 20 mg tablet 20 mg PO DAILY 06/24/23 06/27/24 History vitamin E 200 unit capsule 200 unit PO DAILY 06/24/23 06/27/24 History Allergies Allergy/AdvReac Type Severity Reaction Status Date / Time aspirin Allergy Mild unkown Verified 06/27/24 07:55 Exam Constitutional Documenting provider has reviewed patient's vital signs: yes Common normals: no apparent distress, oriented x3, healthy appearing, alert and well nourished General appearance: cooperative HENMT Common normals: normocephalic, hearing grossly normal bilaterally and moist oral mucous membranes Head and scalp: normocephalic Eye Common normals: PERRL Pupil: PERRL Neck & C-Spine Common normals: full ROM General: normal visual inspection Cervical spine: pain with cervical ROM, cervical spine tenderness and paracervical muscle tenderness Chest Common normals: inspection of chest normal Respiratory Common normals: normal respiratory effort, no retractions and no use of accessory muscles Extremity Left upper extremity: shoulder joint Other: left shoulder limited ROM, unable to lift arm above head, weakness to LUE 4/5 sensation intact posterior lift off positive, positive apley scratch test Neuro Common normals: oriented x3, CN's II-XII intact bilaterally, moves all extremities, no focal motor deficits, no sensory deficits noted and deep tendon reflexes 2+ bilaterally Sensorium/orientation: alert Motor exam: strength 5/5 throughout and no movement abnormalities noted Psych Common normals: mental status grossly normal, thought process normal, cooperative, affect normal, speech normal and activity/motor behavior normal Speech: normal speech Thought process: normal thought process Results Additional Findings Additional findings: If on a controlled substance or opioids, I have checked an [place] report on this patient and there are no aberrancies noted in the prescribing history.??If on a controlled substance or opioid a drug screen was completed and reviewed within the last year, and if there has not been a drug screen completed we ordered one today to monitor higher risk, state monitored pain medication use. As part of providing excellent, safe, comprehensive care, the following was completed at our patient's visit: 1. A medication reconciliation and review to ensure accurate knowledge of current/active medications, including asking our patients to inform us about any [id number] medications or herbal remedies/nutritional supplements/alternative remedies. 2. A review to specifically ensure our patients have had annual screening for screening for depression, screening for tobacco use, and screening for unhealthy alcohol use. For concerning screenings had a discussion with the patient, provided patient education, and recommended follow-up with primary care provider when appropriate. If patient noted with a risk of falling, they received education on strength, gait, and balance training to prevent future risk of falling. Assessment and Plan Assessment and Plan (1) Left shoulder pain: (2) Rotator cuff tear arthropathy of left shoulder: (3) Osteoarthritis of left shoulder: Plan left suprascapular and axillary nerve thermal RFA providing 50% improvement ongoing continue gabapentin 300mg TID f/u 6 months
== END 2024-07-27 14:05 | disposition home or self-care (01) ==
LOC: PM 14:05
PROVIDERS: Visit Provider Nurse Practitioner
DX: M25.512 Pain in left shoulder (principal); M19.012 Primary osteoarthritis, left shoulder
CPT/HCPCS: G0463

== ENCOUNTER 2024-07-29 13:56 | Outpatient (OUT) | payer MEDICARE, SELFPAY ==
--- NOTE | 2024-07-29 14:05 | XR_ITS ---
The [address] [address] Patient Name: BLANCA BUTLER MRN: [id number] date: 1960 Sex: F Assigned Patient Location: [facility] Current Patient Location: Accession/Order Number: [id number] Exam Date: 07/29/2024 14:10 Report Date: 08/01/2024 06:46 At the request of: MAISHA BRYANT Procedure: XR knee standing BI EXAMINATION: XR knee standing BI HISTORY: Chronic Pain Of Left Knee M25.562 COMPARISON: No relevant comparison available. FINDINGS: RIGHT FINDINGS: BONES: A single frontal view demonstrates marked narrowing of the medial and lateral joint spaces with large periarticular degenerative osteophytes and subchondral sclerosis. SOFT TISSUES: No visible soft tissue swelling. OTHER: Negative. LEFT FINDINGS: BONES: A single frontal view demonstrates marked narrowing of the medial compartment with [id number] articulation. Large periarticular degenerative osteophytes involving the medial and lateral compartments. SOFT TISSUES: Large flocculent calcification along superior medial margin of the knee joint; heterotopic bone formation versus loose body within the joint capsule. OTHER: Negative. XR/XR knee standing BI IMPRESSION: RIGHT CONCLUSION: Marked degenerative joint disease. LEFT CONCLUSION: Marked degenerative joint disease. Electronically authenticated by: SLIME [place] Date: 08/01/2024 06:46
--- OUTSIDE RECORDS SUMMARY | 2024-07-29 14:11 | XMS_ITS | CCD ---
Author Organization [facility] Care Team Providers Care Nutritional Yeast Supervisor Name Role Phone UNKNOWN, PHYSICIAN Primary Care Unavailable UNKNOWN, PHYSICIAN Referring Unavailable HERMINIO ROBERTS Admitting Unavailable HERMINIO ROBERTS Attending Unavailable HERMINIO ROBERTS Surgeon Unavailable SC Procedure Practitioner Unavailab PATRICIA GarciaIKH H Consulting [...] Unavailable Shaikh Chambers MD Primary Care Provider SHAIKH CHAMBERS Attending Unavailable SHAIKH CHAMBERS Attending Unavailable SHAIKH CHAMBERS Attending Unavailable JOANNA WYMAN Attending Unavailvivian May MD, Chikis Henderson Attending Unavailable Lalo PALACIO, Andshukri Henderson Attending Unavailable Lalo PALACIO, Chikis Henderson Attending Unavailable Jose Guadalupe Villafuerte MD Primary Care Provider [phone] [employer] TUBES SUPERVISOR, Joanna Unavailable Unallocated Evie PALACIO Provider Primary Care Provi royce Allergies Allergy Classification Reported Allergen(s) Allergy Type Date of Onset Reaction(s) Facility Aspirin (1 source) Aspirin; Translations: [ASPIRIN] Drug Allergy 12-26-2020 [facility] Repository (1 source) Amino Acids Drug Allergy [facility] Repository (1 source) Aspirin Drug Allergy [facility] Repository (6 sources) Aluminum aspirin Drug Allergy 04-30-2023 [facility] Medications Current Medications Medication Drug Class(es) Dates Sig (Normalized) Sig (Original) [id number] 200 actuat albuterol 0.09 mg/actuat metered dose inhaler (5 sources) beta2-Adrenergic Agonist Start: 06-14-2024 End: 07-14-2024 take 2 puff(s) by inhalation every four hours for wheezing albuterol HFA 90 mcg/act inhaler Indications: Suspected chronic obstructive pulmonary disease based on initial evaluation ([facility]) Inhale 2 puffs every 4 (four) hours if needed for wheezing 8.5 g 3 06/14/2024 Active alendronic acid 35 mg oral tablet (7 sources) Bisphosphonate Start: 06-21-2024 End: 09-19-2024 take [...] 0 Active allopurinol 100 mg oral tablet (6 sources) Xanthine Oxidase Inhibitor Start: 04-13-2024 take [...] / vitamin e 6.75 mg chewable tablet (6 sources) Nicotinic Acid, Vitamin A, Vitamin B12, Vitamin D, Vitamin C Pediatric Multivitam ins-Fl (MultiVitamin + Fluoride) 0.25 MG chewable tablet Multivitamin Active B Complex Vitamins (VITAMIN B COMPLEX 100 IJ) (6 sources) B Complex Vitami ns (VITAMIN B COMPLEX 100 IJ) Vitamin B Complex Active B Complex Vitami ns (VITAMIN B COMPLEX 100 IJ) Vitamin B Complex 0 Active calcium carbonate 1500 mg oral tablet (6 sources) calcium carbonat e 1500 (600 Ca) MG tablet every 12 (twelve) hours. Active carvedilol 25 mg oral tablet (6 sources) alpha-Adrenergic Steph, beta-Adrenergic Steph Start: 01-12-2024 [...] Active cholecalciferol 0.025 mg ora l capsule (6 sources) Vitamin D cholecalciferol (Vitamin D-3) 25 MCG (1000 UT) capsule 1 capsule 1 (one) time each day at the same time. Active cinnamon bark 500 mg oral capsule (6 sources) cinnamon 500 MG capsule as directed Orally Active cranberry preparation 500 mg oral capsule (6 sources) Non-Standardized Food Allergenic Extract, Non-Standardized Plant Allergenic Extract Cranberry 500 MG cap jazmín as directed Orally Active evening primrose oil 1000 mg oral capsule (6 sources) Evening Lamar Oil 1000 MG capsule as directed Orally Active famotidine 20 mg oral tablet (6 sources) Histamine-2 Receptor Antagonist famotidine (Pepcid) 20 MG tablet 1 (one) time each day at the same time. Active Fish Oils (6 sources) omega-3 (FISH OI L) 300 MG capsule Fish Oil Active omega-3 (FISH OI L) 300 MG capsule Fish Oil 0 Active fluticasone propionate 0.05 mg/actuat metered dose nasal spray (5 sources) Corticosteroid Start: 06-14-2024 End: 06-14-2025 take [...] / salmeterol 0.05 mg/actuat dry powder inhaler (3 sources) Corticosteroid, beta2-Adrenergic Agonist Start: 07-13-2024 take 1 puff(s) by inhalation once daily Fluticasone-Salme terol (Advair Diskus) 100-50 MCG/ACT aerosol powder Indications: Suspected chronic obstructive pulmonary disease based on initial evaluation ([facility]) , Mild intermittent asthma without complication (CMS/HCC) Inhale 1 puff Daily 60 each 2 07/13/2024 Active gabapentin 300 mg oral capsule (6 sources) Anti-epileptic Agent Start: 08-23-2023 take 1 capsule by mouth in the morning, then take 1 capsule by mouth in the evening, then take 1 capsule by mouth at bedtime gabapentin (Neurontin) 300 MG capsule Take 300 mg by mouth in the morning and 300 mg in the evening and 300 mg before bedtime. 08/23/2023 Active Garlic preparation (6 sources) Non-Standardized Food Allergenic Extract Garlic 2 MG capsule Garlic Active Garlic 2 MG caps ule Garlic 0 Active Ginkgo biloba extract (6 sources) Ginkgo Biloba 40 MG tablet Ginko Biloba Active Ginkgo Biloba 40 MG tablet Ginko Biloba 0 Active glucosamine sulfate 1000 mg oral capsule (6 sources) Glucosamine Sulf ate 1000 MG capsule 1 (one) time each day at the same time. Active Grape Seed Extract (6 sources) Grape Seed Extra ct 30 MG capsule Grape Seed Extract Active Grape Seed Extra ct 30 MG capsule Grape Seed Extract 0 Active hydroCHLOROthiazide 25 mg oral tablet (6 sources) Thiazide Diuretic Start: 09-15-2023 End: 03-13-2024 take 1 tablet by mouth in the morning hydroCHLOROthiazide (HYDRODiuril) 25 MG tablet Indications: Primary hypertension (CMS/HCC) TAKE 1 TABLET BY MOUTH IN THE MORNING 90 tablet 1 03/14/2024 Active loratadine 10 mg oral tablet (6 sources) loratadine (Clar itin) 10 MG tablet 1 (one) time each day at the same time. Active losartan potassium 100 mg oral tablet (6 sources) Angiotensin 2 Receptor Steph Start: 06-27-2024 take 1 tablet by mouth once daily losartan (Cozaar) 100 MG tablet Indications: Primary hypertension (CMS/HCC) Take 1 tablet (100 mg) by mouth Daily 90 tablet 06/27/2024 Active losartan (Cozaar ) 100 MG tablet 1 (one) time each day at the same time. 0 Active nabumetone 500 mg oral tablet (6 sources) Nonsteroidal Anti-inflammatory Drug Start: 07-18-2024 End: [...] Active oxyCODONE hydrochloride 5 mg oral tablet (8 sources) Opioid Agonist Start: 06-27-2024 End: 08-27-2024 take 1 tablet by mouth once oxyCODONE (Roxicodone) 5 MG immediate release tablet Indications: Chronic left shoulder pain , Chronic pain of left knee Take 1 tablet (5 mg) by mouth every 12 (twelve) hours if needed for moderate pain 60 tablet 07/28/2024 08/27/2024 Active Start: 10-13-2023 End: 12-12-2023 take 1 tablet by mouth once oxyCODONE (Roxicodone) 5 M G immediate release tablet Indications: Chronic left shoulder pain , Chronic pain of left knee Take 1 tablet (5 mg) by mouth every 12 (twelve) hours if needed for moderate pain 60 tablet 0 11/12/2023 12/12/2023 Active PARoxetine hydrochloride 20 mg oral tablet (6 sources) Serotonin Reuptake Inhibitor Start: 04-18-2024 take 1 tablet by mouth once daily PARoxetine (Paxil) 20 MG tablet Indications: Recurrent major depressive disorder, in full remission (CMS/HCC) Take 1 tablet by mouth once daily 90 tablet 1 04/18/2024 Active PARoxetine (Paxi l) 20 MG tablet 1 (one) time each day at the same time. 0 Active simvastatin 20 mg oral tablet (6 sources) HMG-CoA Reductase Inhibitor Start: 12-07-2023 take [...] Active Turmeric Curcumin 500 MG cap jazmín (6 sources) Turmeric Curcumi n 500 MG capsule as directed Orally Active Turmeric Curcumi n 500 MG capsule as directed Orally 0 Active ubidecarenone 100 mg / vitam in e 5 unt oral capsule (6 sources) coenzyme Q-10 10 0 MG capsule as directed Orally Active vitamin e d-alpha 400 unt or al capsule (6 sources) alpha tocopherol (Vitamin E) 400 units capsule 1 capsule 1 (one) time each day at the same time. Active Problems Active Problems Problem Classification Problem Date Documented Da te Episodic/Chronic Asthma (4 sources) Mild intermittent asthma; Translations: [Mild intermittent asthma, uncomplicated] 07-13-2024 Chronic Chronic obstructive pulmonary disease and bronchiectasis (7 sources) Suspected respiratory disease; Translations: [Chronic obstructive pulmonary disease, unspecified] Onset: 4 07-07-2024 Chronic Diabetes mellitus without complication (5 sources) Type 2 diabetes mellitus without complications; Translations: [TYPE 2 DM WITHOUT COMPLICATIONS] Onset: 2 Chronic Disorders of lipid metabolism (7 sources) Hyperlipidemia, unspecified; Translations: [Mixed hyperlipidemia] Onset: 3 09-08-2023 Chronic Essential hypertension (7 sources) Essential (primary) hypertension; Translations: [Essential hypertension] [...] SYS] Onset: 3 Episodic Other circulatory disease (5 sources) Upper respiratory tract finding; Translations: [Other specified symptoms and signs involving the circulatory and respiratory systems] Onset: 4 06-14-2024 Episodic Other nervous system disorders (6 sources) Difficulty walking; Translations: [Difficulty in walking, not elsewhere classified] Onset: 3 04-30-2023 Chronic Other nervous system disorders (6 sources) Chronic pain; Translations: [Other chronic pain] Onset: 3 04-30-2023 Chronic Other non-traumatic joint disorders (4 sources) Pain in right knee; Translations: [PAIN IN RIGHT KNEE] Onset: 3 Episodic Other non-traumatic joint disorders (10 sources) Pain in left knee; Translations: [Pain [...] Onset: 3 Episodic Other non-traumatic joint disorders (9 sources) Chronic pain of left upper limb; Translations: [Pain in left shoulder] Onset: 3 11-12-2023 Episodic Phlebitis; thrombophlebitis and thromboembolism (2 sources) Phlebitis and thrombophlebitis of superficial vessels of right lower extremity; Translations: [Phlebitis and thrombophlebitis of superficial vessels of left lower extremity] Onset: 3 Episodic Residual codes; unclassified (1 source) Localized edema; Translations: [LOCALIZED EDEMA] Onset: 3 Episodic Unclassified (1 source) Chronic pain of left upper limb 07-28-2024 Unclassified (1 source) Chronic pain of left knee 07-28-2024 Varicose veins of lower extremity (5 sources) Varicose veins of bilateral lower extremities with pain; Translations: [VARICOSE VNS SARITHA LOW EXTREM W/PAIN] Onset: 3 Episodic Past or Other Problems Problem Classification Problem Date Documented Da te Episodic/Chronic Other connective tissue disease (6 sources) Nontraumatic complete rupture of rotator cuff of left shoulder; Translations: [Complete rotator cuff tear or rupture of left shoulder, not specified as traumatic] Onset: 09-08-2023 09-08-2023 Episodic Other non-traumatic joint disorders (11 sources) Hip pain; Translations: [Pain in unspecified hip] Onset: 01-08-2021 04-30-2023 Episodic Screening and history of mental health and substance abuse codes (4 sources) Personal history of nicotine dependence; Translations: [PERSONAL HISTORY OF NICOTINE DEPEND] Onset: 07-21-2022 Episodic Results Test Name Value Interpretation Reference Range Facility ALL HEMOGLOBINon 07-12-2024 Hemoglobin (Bld) [Mass/Vol] 11.3 g/dL Low 12.0 - 16.0 g/dL [facility] Interpretation and review of laboratory results Abnormal [facility] VC CONSULT FOLLOWUPon 2022 VC CONSULT FOLLOWUP Patient: BLANCA MOE Exam Date: 03/03/2023 : 1960 Gender:F Ordering : DR MARIA ANTONIA CONRAD M.D. Admission #: [id number] Family : Order #: [id number] CLICK HERE TO VIEW EXAM RADIOLOGY REPORT [...] Conrad MD on 03/03/2023 at 13:46 Normal [facility] VC EXT VENOUS RT LIMITEDon 0 03-03-2023 VC EXT VENOUS RT LIMITED Patient: BLANCA MOE. Exam Date: 03/03/2023 : 1960 Gender:F Ordering : DR MARIA ANTONIA CONRAD M.D. Admission #: [id number] Family : Order #: [id number] CLICK HERE TO VIEW EXAM RADIOLOGY REPORT [...] Conrad MD on 03/03/2023 at 13:10 Normal [facility] VC ENDOVENOUS ABL 1ST V RTon 02-25-2023 VC ENDOVENOUS ABL 1ST V RT Patient: BLANCA MOE. Exam Date: 02/25/2023 : 1960 Gender:F Ordering : DR MARIA ANTONIA CONRAD M.D. Admission #: [id number] Family : Order #: [id number] CLICK HERE TO VIEW EXAM RADIOLOGY REPORT [...] Millan M.D. on 02/25/2023 at 15:01 Normal [facility] VC CONSULT FOLLOWUPon 2022 VC CONSULT FOLLOWUP Patient: BLANCA MOE Exam Date: 02/09/2023 : 1960 Gender:F Ordering : DR MARIA ANTONIA CONRAD M.D. Admission #: [id number] Family : Order #: [id number] CLICK HERE TO VIEW EXAM RADIOLOGY REPORT [...] Millan M.D. on 02/09/2023 at 11:43 Normal [facility] VC EXT VENOUS LT LIMITEDon 0 02-09-2023 VC EXT VENOUS LT LIMITED Patient: BLANCA MOE Exam Date: 02/09/2023 : 1960 Gender:F Ordering : DR MARIA ANTONIA CONRAD M.D. Admission #: [id number] Family : Order #: [id number] CLICK HERE TO VIEW EXAM RADIOLOGY REPORT [...] Millan M.D. on 02/09/2023 at 11:35 Normal [facility] VC ENDOVENOUS ABL 1ST V LTon 02-02-2023 VC ENDOVENOUS ABL 1ST V LT Patient: BLANCA MOE Exam Date: 02/02/2023 : 1960 Gender:F Ordering : DR MARIA ANTONIA CONRAD M.D. Admission #: [id number] Family : Order #: [id number] CLICK HERE TO VIEW EXAM RADIOLOGY REPORT [...] Millan M.D. on 02/02/2023 at 14:17 Normal [facility] VC COMP CONSULTATIONon 01-08 VC COMP CONSULTATION Patient: BLANCA MOE Exam Date: 01/08/2023 : 1960 Gender:F Ordering : DR MARIA ANTONIA CONRAD M.D. Admission #: [id number] Family : Order #: [id number] CLICK HERE TO VIEW EXAM RADIOLOGY REPORT PROCEDURE: VEIN CENTER CONSULTATION VEIN CENTER - OFFICE [...] saphenous, mild to moderate right small saphenous [id number]-hpryxjfh left anterior accessory saphenous vein venous insufficiency [...] Conrad MD on 01/08/2023 at 15:14 Normal [facility] VC VENOUS REFLUX SARITHA LMTon 0 01-08-2023 VC VENOUS REFLUX SARITHA LMT Patient: BLANCA MOE Exam Date: 01/08/2023 : 1960 Gender:F Ordering : DR MARIA ANTONIA CONRAD M.D. Admission #: [id number] Family : Order #: [id number] CLICK HERE TO VIEW EXAM RADIOLOGY REPORT [...] chronic thrombus visualized Compressibility: Normal Flow: Normal Pharmaceutical Salesperson: Dist/med calf 3.7 mm with 2.4s reflux. [...] Bilateral incompetent varicose veins 5. Left incompetent php website developer veins 6. Left suprapatellar fluid collection likely joint effusion and popliteal lesion likely a cyst Dictated by: Maria Antonia Conrad MD on 01/08/2023 at 13:50 Approved by: Maria Antonia Conrad MD on 01/08/2023 at 13:52 Normal [facility] XR KNEE SARITHA 4V or >on [...] JOVANNI MILLAN Date: 2022-12-17 16:24 Normal [facility] XR SHOULDER SARITHA 2V or >on [...] narrowing of the glenohumeral joints with likely vxhk-ah-jkry contact. Degenerative osteophyte along the inferior articular [...] JOVANNI MILLAN Date: 2022-12-17 16:32 Normal [facility] CBC AUTO DIFFon 12-15-2022 BASO # 0.1 103/ul Normal 0.0-0.1 [facility] Comment on above: Performed By: #### C BC ####[facility] [address] [place] [id number]. Sarah Napoles Basophils/100 WBC (Bld) 0.8 % Normal 0.2-2.0 [facility] Comment on above: Performed By: #### C BC ####[facility] [address] [place], [place] [address]Lj. Sarah Napoles EO # 0.2 103/ul Normal 0.0-0.7 [facility] Comment on above: Performed By: #### C BC ####[facility] [address] [place] [id number]. Sarah Napoles Eosinophils/100 WBC (Bld) 2.3 % Normal 0.9-7.0 [facility] Comment on above: Performed By: #### C BC ####[facility] [address] [place] [address]Dr. Sarah Napoles Erythrocyte distribution width (RBC) [Ratio] 13.2 % Normal 11.0-15.0 [facility] Comment on above: Performed By: #### C BC ####[facility] [address] [place] [address]Dr. Sarah Napoles Hematocrit (Bld) [Volume fraction] 34.3 % Critically low 36.0-48.0 [facility] Comment on above: Performed By: #### C BC ####[facility] [address] [place], [place] [address]Dr. Sarah Napoles Hemoglobin (Bld) [Mass/Vol] 11.5 g/dL Critically low 12.0-16.0 [facility] Comment on above: Performed By: #### C BC ####[facility] [address] [place], [place] [address]Dr. Sarah Napoles IG # 0.02 10e3/ul Normal 0.00-0.03 [facility] Comment on above: Performed By: #### C BC ####[facility] [address] [place], [place] [address]Dr. Sarah Napoles IG % 0.2 % Normal 0.0-0.5 [facility] Comment on above: Performed By: #### C BC ####[facility] [address] [place], [place] [address]Dr. Sarah Napoles LYMPH # 1.8 103/ul Normal 1.2-3.8 [facility] Comment on above: Performed By: #### C BC ####[facility] [address] [place], [place] [address]Dr. Sarah Napoles Lymphocytes/100 WBC (Bld) 19.8 % Critically low 20.5-60.0 [facility] Comment on above: Performed By: #### C BC ####[facility] [address] [place], [place] [address]Dr. Sarah Napoles MANUAL DIFF REQ NO Normal [facility] Comment on above: Performed By: #### C BC ####[facility] [address] [place] [phone]. Sarah Dony MCH (RBC) [Entitic mass] 32.2 pg Normal 26.7-34.0 [facility] Comment on above: Performed By: #### C BC ####[facility] [address] [place] [id number]. Sarah Napoles MCHC (RBC) [Mass/Vol] 33.5 g/dL Normal 29.9-35.2 [facility] Comment on above: Performed By: #### C BC ####[facility] [address] [place] [address]Dr. Sarah Napoles MCV (RBC) [Entitic vol] 96.1 fL Normal 81.0-99.0 [facility] Comment on above: Performed By: #### C BC ####[facility] [address] [place], [place] [address]Dr. Sarah Napoles MONO # 0.8 103/ul Normal 0.3-0.8 [facility] Comment on above: Performed By: #### C BC ####[facility] [address] [place], [place] [address]Dr. Sarah Napoles Monocytes/100 WBC (Bld) 9.5 % Normal 1.7-12.0 [facility] Comment on above: Performed By: #### C BC ####[facility] [address] [place], [place] [address]Dr. Sarah Napoles NEUT # 6.0 103/ul Normal 1.4-6.5 [facility] Comment on above: Performed By: #### C BC ####[facility] [address] [place], [place] [id number] Napoles Neutrophils/100 WBC (Bld) 67.4 % Normal 43.0-75.0 [facility] Comment on above: Performed By: #### C BC ####[facility] [address] [place], [place] [address]DrJudy Napoles Platelet mean volume (Bld) [Entitic vol] 10.1 fL Normal 9.5-13.5 [facility] Comment on above: Performed By: #### C BC ####[facility] [address] [place] [address]Dr. Sarah Napoles PLT 283 103/ul Normal 150-450 [facility] Comment on above: Performed By: #### C BC ####[facility] [address] [place] [id number]. Saarh Napoles RBC 3.57 106/ul Critically low 4.20-5.40 [facility] Comment on above: Performed By: #### C BC ####[facility] [address] [place] [address]Dr. Sarah Napoles WBC 8.8 103/ul Normal 4.0-11.0 [facility] Comment on above: Performed By: #### C BC ####[facility] [address] [place] [address]Dr. Sarah Napoles GLYCOHEMOGLOBIN A1Con 2022 ADA RECOMMENDATION SEE BELOW Normal [facility] Comment on above: Result Comment: ADA RECOMMENDED LIMIT 4.0 - 6.0 ADA THERAPEUTIC TARGET < 7.0 ACTION SUGGESTED > 7.0 Performed By: #### A 1C ####[facility] [address] [place] [address]Dr. Sarah Napoles Glucose [Mass/Vol] 105 mg/dL Normal [facility] Comment on above: Performed By: #### A 1C ####[facility] [address] [place] [address]Dr. Sarah Napoles HbA1c (Bld) [Mass fraction] 5.3 % Normal 4.5-6.2 [facility] Comment on above: Performed By: #### A 1C ####[facility] [address] [place], [place] [address]Dr. Sarah Napoles LIPID PROFILEon 12-15-2022 CHOL-HDL RATIO NORM SEE BELOW Normal [facility] Comment on above: Result Comment: 3.3 - 4.4 LOW RISK 4.4 - 7.1 AVERAGE RISK 7.1 - 11.0 MODERATE RISK >11.0 HIGH RISK Performed By: #### L IPID, CMP, URIC ####[facility] [address] [place] [id number]. Sarah Napoles Cholesterol [Mass/Vol] 160 mg/dL Normal <=200 [facility] Comment on above: Performed By: #### L IPID, CMP, URIC ####[facility] [address] [place] [id number]. Sarah Napoles Cholesterol in HDL [Mass/Vol] 62 mg/dL Critically high 40-60 [facility] Comment on above: Performed By: #### L IPID, CMP, URIC ####[facility] [address] [place] [id number]. Sarah Napoles Cholesterol in LDL [Mass/Vol] 75.2 mg/dL Normal [facility] Comment on above: Performed By: #### L IPID, CMP, URIC ####[facility] [address] [place] [address]Dr. Sarah Napoles Cholesterol.total/Ch olesterol in HDL [Mass ratio] 2.6 {ratio} Normal [facility] Comment on above: Performed By: #### L IPID, CMP, URIC ####[facility] [address] [place] [id number]. Sarah Napoles HDL NORMAL > or = 60 mg/dl - LO W CARDIOVASCULAR RISK <40 mg/dl - HIGH CARDIOVASCULAR RISK Normal [facility] Comment on above: Performed By: #### L IPID, CMP, URIC ####[facility] [address] [place] [phone]. Sarah Napoles LDL CALC NORMAL SEE BELOW Normal [facility] Comment on above: Result Comment: <100 mg/dl OPTIMAL 100 - 129 mg/dl NEAR OR ABOVE OPTIMAL 130 - 159 mg/dl BORDERLINE HIGH 160 - 189 mg/dl HIGH >190 mg/dl VERY HIGH Performed By: #### L IPID, CMP, URIC ####[facility] [address] [place] [id number]. Sarah Napoles Triglyceride [Mass/Vol] 114 mg/dL Normal <=150 [facility] Comment on above: Performed By: #### L IPID, CMP, URIC ####[facility] [address] [place], [place] [address]GxDr. Sarah Napoles VLDL CALC 22.8 mg/dL Normal [facility] Comment on above: Performed By: #### L IPID, CMP, URIC ####[facility] [address] [place], [place] [address]Dr. Sarah Napoles PROF 14(COMP METB)on 023 Albumin [Mass/Vol] 4.3 g/dL Normal 3.4-5.0 [facility] Comment on above: Performed By: #### L IPID, CMP, URIC #### [facility] [address] [place] [address] [address] Sarah Napoles Albumin/Globulin [Mass ratio] 1.3 {ratio} Normal [facility] Comment on above: Performed By: #### L IPID, CMP, URIC #### [facility] [address] [address] [address] Sarah Napoles ALP [Catalytic activity/Vol] 71 U/L Normal 46-116 [facility] Comment on above: Performed By: #### L IPID, CMP, URIC #### [facility] [address] [address] [address] Sarah Napoles ALT [Catalytic activity/Vol] 25 U/L Normal 14-59 [facility] Comment on above: Performed By: #### L IPID, CMP, URIC #### [facility] [address] [address] [address] Sarah Napoles Anion gap [Moles/Vol] 11.8 mmol/L Normal [facility] Comment on above: Performed By: #### L IPID, CMP, URIC #### [facility] [address] [place] [address] [address] Sarah Napoles AST [Catalytic activity/Vol] 22 U/L Normal 15-37 [facility] Comment on above: Performed By: #### L IPID, CMP, URIC #### [facility] [address] [address] [address] Sarah Napoles Bilirubin [Mass/Vol] 0.3 mg/dL Normal 0.2-1.0 [facility] Comment on above: Performed By: #### L IPID, CMP, URIC #### [facility] [address] [place] [address] Dr. Sarah Napoles Calcium [Mass/Vol] 9.8 mg/dL Normal 8.5-10.1 [facility] Comment on above: Performed By: #### L IPID, CMP, URIC #### [facility] [address] [address] [address] Sarah Napoles Chloride [Moles/Vol] 101 mmol/L Normal 98-107 [facility] Comment on above: Performed By: #### L IPID, CMP, URIC #### [facility] [address] [place] [address] Dr. Sarah Napoles CO2 [Moles/Vol] 29.5 mmol/L Normal 21.0-32.0 [facility] Comment on above: Performed By: #### L IPID, CMP, URIC #### [facility] [address] [place] [address] Dr. Sarah Napoles Creatinine [Mass/Vol] 0.63 mg/dL Normal 0.55-1.02 [facility] Comment on above: Performed By: #### L IPID, CMP, URIC #### [facility] [address] [place] [address] Dr. Sarah Napoles EGFR-AF PAPUA [place]AN >60 Normal >=60 [facility] Comment on above: Performed By: #### L IPID, CMP, URIC #### [facility] [address] [place] [address] Dr. Sarah Napoles EGFR-NON AF [place] >60 Normal >=60 [facility] Comment on above: Performed By: #### L IPID, CMP, URIC #### [facility] [address] [place] [address] Dr. Sarah Napoles Globulin (S) [Mass/Vol] 3.4 g/dL Normal [facility] Comment on above: Performed By: #### L IPID, CMP, URIC #### [facility] [address] [place] [address] Dr. Sarah Napoles Glucose [Mass/Vol] 92 mg/dL Normal 74-106 [facility] Comment on above: Performed By: #### L IPID, CMP, URIC #### [facility] [address] [address] [address] Sarah Napoles Potassium [Moles/Vol] 4.3 mmol/L Normal 3.5-5.1 [facility] Comment on above: Performed By: #### L IPID, CMP, URIC #### [facility] [address] [address] [address] Sarah Napoles Protein [Mass/Vol] 7.7 g/dL Normal 6.4-8.2 [facility] Comment on above: Performed By: #### L IPID, CMP, URIC #### [facility] [address] [address] [address] Sarah Napoles Sodium [Moles/Vol] 138 mmol/L Normal 136-145 [facility] Comment on above: Performed By: #### L IPID, CMP, URIC #### [facility] [address] [address] [address] Sarah Napoles Urea nitrogen [Mass/Vol] 25.0 mg/dL Critically high 7.0-18.0 [facility] Comment on above: Performed By: #### L IPID, CMP, URIC #### [facility] [address] [address] [address] Sarah Napoles Urea nitrogen/Creatinine [Mass ratio] 39.7 mg/mg Normal [facility] Comment on above: Performed By: #### L IPID, CMP, URIC #### [facility] [address] [address] [address] Sarah Napoles URIC ACID SERUMon 12-15-2022 Urate [Mass/Vol] 3.7 mg/dL Normal 2.6-6.0 [facility] Comment on above: Performed By: #### L IPID, CMP, URIC ####[facility] [address] [address] Sarah Napoles CT LUNG CANCER SCREENINGon CT [...] JOVANNI MILLAN Date: 2022-07-21 22:18 Normal [facility] CBC AUTO DIFFon 06-16-2022 BASO # 0.1 103/ul Normal 0.0-0.1 [facility] Comment on above: Performed By: #### C BC ####[facility] [address] [address]DrJudy Napoles Basophils/100 WBC (Bld) 0.9 % Normal 0.2-2.0 [facility] Comment on above: Performed By: #### C BC ####[facility] [address] [address]DrJudy Napoles EO # 0.2 103/ul Normal 0.0-0.7 [facility] Comment on above: Performed By: #### C BC ####[facility] [address] [address]DrJudy Napoles Eosinophils/100 WBC (Bld) 2.5 % Normal 0.9-7.0 [facility] Comment on above: Performed By: #### C BC ####[facility] [address] [address]DrJudy Napoles Erythrocyte distribution width (RBC) [Ratio] 13.4 % Normal 11.0-15.0 [facility] Comment on above: Performed By: #### C BC ####[facility] [address] [address]DrJudy Napoles Hematocrit (Bld) [Volume fraction] 33.3 % Critically low 36.0-48.0 [facility] Comment on above: Performed By: #### C BC ####[facility] [address] [place], [place] [address]DrJudy Napoles Hemoglobin (Bld) [Mass/Vol] 10.8 g/dL Critically low 12.0-16.0 [facility] Comment on above: Performed By: #### C BC ####[facility] [address] [place], [place] [address]DrJudy Napoles IG # 0.03 10e3/ul Normal 0.00-0.03 [facility] Comment on above: Performed By: #### C BC ####[facility] [address] [place], [place] [address]DrJudy Napoles IG % 0.4 % Normal 0.0-0.5 [facility] Comment on above: Performed By: #### C BC ####[facility] [address] [place], [place] [address]DrJudy Napoles LYMPH # 1.7 103/ul Normal 1.2-3.8 [facility] Comment on above: Performed By: #### C BC ####[facility] [address] [place], [place] [address]DrJudy Napoles Lymphocytes/100 WBC (Bld) 20.4 % Critically low 20.5-60.0 [facility] Comment on above: Performed By: #### C BC ####[facility] [address] [place], [place] [address]DrJudy Napoles MANUAL DIFF REQ NO Normal [facility] Comment on above: Performed By: #### C BC ####[facility] [address] [place], [place] [address]DrJudy Napoles MCH (RBC) [Entitic mass] 32.0 pg Normal 26.7-34.0 [facility] Comment on above: Performed By: #### C BC ####[facility] [address] [address]DrJudy Napoles MCHC (RBC) [Mass/Vol] 32.4 g/dL Normal 29.9-35.2 [facility] Comment on above: Performed By: #### C BC ####[facility] [address] [place], [place] [address]DrJudy Napoles MCV (RBC) [Entitic vol] 98.8 fL Normal 81.0-99.0 [facility] Comment on above: Performed By: #### C BC ####[facility] [address] [place], [place] [address]DrJudy Napoles MONO # 0.9 103/ul Critically high 0.3-0.8 [facility] Comment on above: Performed By: #### C BC ####[facility] [address] [place], [place] [address]Dr. Sarah Napoles Monocytes/100 WBC (Bld) 11.0 % Normal 1.7-12.0 [facility] Comment on above: Performed By: #### C BC ####[facility] [address] [place], [place] [address]DrJudy Napoles NEUT # 5.3 103/ul Normal 1.4-6.5 [facility] Comment on above: Performed By: #### C BC ####[facility] [address] [place], [place] [address]DrJudy Napoles Neutrophils/100 WBC (Bld) 64.8 % Normal 43.0-75.0 [facility] Comment on above: Performed By: #### C BC ####[facility] [address] [place], [place] [address]DrJudy Napoles Platelet mean volume (Bld) [Entitic vol] 10.8 fL Normal 9.5-13.5 [facility] Comment on above: Performed By: #### C BC ####[facility] [address] [place], [place] [address]DrJudy Napoles PLT 262 103/ul Normal 150-450 [facility] Comment on above: Performed By: #### C BC ####[facility] [address] [place], [place] [address]OyJudy Oliviercassie Napoles RBC 3.37 106/ul Critically low 4.20-5.40 [facility] Comment on above: Performed By: #### C BC ####[facility] [address] [id number] Oliviercassie Dony WBC 8.1 103/ul Normal 4.0-11.0 [facility] Comment on above: Performed By: #### C BC ####[facility] [address] [id number]. Sarah Napoles GLYCOHEMOGLOBIN A1Con 2021 ADA RECOMMENDATION SEE BELOW Normal [facility] Comment on above: Result Comment: ADA RECOMMENDED LIMIT 4.0 - 6.0 ADA THERAPEUTIC TARGET < 7.0 ACTION SUGGESTED > 7.0 Performed By: #### A 1C ####[facility] [address] [id number]. Sarah Napoles Glucose [Mass/Vol] 108 mg/dL Normal [facility] Comment on above: Performed By: #### A 1C ####[facility] [address] [id number]. Sarah Napoles HbA1c (Bld) [Mass fraction] 5.4 % Normal 4.5-6.2 [facility] Comment on above: Performed By: #### A 1C ####[facility] [address] [id number]. Sarah Napoles LIPID PROFILEon 06-16-2022 CHOL-HDL RATIO NORM SEE BELOW Normal [facility] Comment on above: Result Comment: 3.3 - 4.4 LOW RISK 4.4 - 7.1 AVERAGE RISK 7.1 - 11.0 MODERATE RISK >11.0 HIGH RISK Performed By: #### C MP, LIPID #### [facility] [address] [place], [place] [address] Dr. Sarah Napoles Cholesterol [Mass/Vol] 147 mg/dL Normal <=200 [facility] Comment on above: Performed By: #### C MP, LIPID #### [facility] [address] [address] [address] Sarah Napoles Cholesterol in HDL [Mass/Vol] 58 mg/dL Normal 40-60 [facility] Comment on above: Performed By: #### C MP, LIPID #### [facility] [address] [address] [address] Sarah Napoles Cholesterol in LDL [Mass/Vol] 68.0 mg/dL Normal [facility] Comment on above: Performed By: #### C MP, LIPID #### [facility] [address] [address] [address] Sarah Napoles Cholesterol.total/Ch olesterol in HDL [Mass ratio] 2.5 {ratio} Normal [facility] Comment on above: Performed By: #### C MP, LIPID #### [facility] [address] [place] [address] Dr. Sarah Napoles HDL NORMAL > or = 60 mg/dl - LO W CARDIOVASCULAR RISK <40 mg/dl - HIGH CARDIOVASCULAR RISK Normal [facility] Comment on above: Performed By: #### C MP, LIPID #### [facility] [address] [place] [address] Dr. Sarah Napoles LDL CALC NORMAL SEE BELOW Normal [facility] Comment on above: Result Comment: <100 mg/dl OPTIMAL 100 - 129 mg/dl NEAR OR ABOVE OPTIMAL 130 - 159 mg/dl BORDERLINE HIGH 160 - 189 mg/dl HIGH >190 mg/dl VERY HIGH Performed By: #### C MP, LIPID #### [facility] [address] [place] [address] Dr. Sarah Napoles Triglyceride [Mass/Vol] 105 mg/dL Normal <=150 [facility] Comment on above: Performed By: #### C MP, LIPID #### [facility] [address] [place] [address] Dr. Sarah Napoles VLDL CALC 21.0 mg/dL Normal [facility] Comment on above: Performed By: #### C MP, LIPID #### [facility] [address] [address] [address] Sarah Napoles PROF 14(COMP METB)on 022 Albumin [Mass/Vol] 4.0 g/dL Normal 3.4-5.0 [facility] Comment on above: Performed By: #### C MP, LIPID #### [facility] [address] [address] [address] Sarah Napoles Albumin/Globulin [Mass ratio] 1.2 {ratio} Normal [facility] Comment on above: Performed By: #### C MP, LIPID #### [facility] [address] [address] [address] Sarah Napoles ALP [Catalytic activity/Vol] 53 U/L Normal 46-116 [facility] Comment on above: Performed By: #### C MP, LIPID #### [facility] [address] [address] [address] Sarah Napoles ALT [Catalytic activity/Vol] 32 U/L Normal 14-59 [facility] Comment on above: Performed By: #### C MP, LIPID #### [facility] [address] [address] [address] Sarah Napoles Anion gap [Moles/Vol] 8.0 mmol/L Normal [facility] Comment on above: Performed By: #### C MP, LIPID #### [facility] [address] [address] [address] Sarah Napoles AST [Catalytic activity/Vol] 23 U/L Normal 15-37 [facility] Comment on above: Performed By: #### C MP, LIPID #### [facility] [address] [address] [address] Sarah Napoles Bilirubin [Mass/Vol] 0.4 mg/dL Normal 0.2-1.0 [facility] Comment on above: Performed By: #### C MP, LIPID #### [facility] [address] [address] [address] Sarah Napoles Calcium [Mass/Vol] 9.4 mg/dL Normal 8.5-10.1 [facility] Comment on above: Performed By: #### C MP, LIPID #### [facility] [address] [address] [address] Sarah Napoles Chloride [Moles/Vol] 100 mmol/L Normal 98-107 [facility] Comment on above: Performed By: #### C MP, LIPID #### [facility] [address] [place] [address] Dr. Sarah Napoles CO2 [Moles/Vol] 30.8 mmol/L Normal 21.0-32.0 [facility] Comment on above: Performed By: #### C MP, LIPID #### [facility] [address] [place] [address] Dr. Sarah Napoles Creatinine [Mass/Vol] 0.68 mg/dL Normal 0.55-1.02 [facility] Comment on above: Performed By: #### C MP, LIPID #### [facility] [address] [place] [address] Dr. Sarah Napoles EGFR-AF [place] >60 Normal >=60 [facility] Comment on above: Performed By: #### C MP, LIPID #### [facility] [address] [place] [address] Dr. Sarah Napoles EGFR-NON AF [place] >60 Normal >=60 [facility] Comment on above: Performed By: #### C MP, LIPID #### [facility] [address] [place] [address] Dr. Sarah Napoles Globulin (S) [Mass/Vol] 3.3 g/dL Normal [facility] Comment on above: Performed By: #### C MP, LIPID #### [facility] [address] [place] [address] Dr. Sarah Napoles Glucose [Mass/Vol] 90 mg/dL Normal 74-106 [facility] Comment on above: Performed By: #### C MP, LIPID #### [facility] [address] [place] [address] Dr. Sarah Napoles Potassium [Moles/Vol] 3.8 mmol/L Normal 3.5-5.1 [facility] Comment on above: Performed By: #### C MP, LIPID #### [facility] [address] [place] [address] Dr. Sarah Napoles Protein [Mass/Vol] 7.3 g/dL Normal 6.4-8.2 [facility] Comment on above: Performed By: #### C MP, LIPID #### [facility] [address] [address] [address] Sarah Napoles Sodium [Moles/Vol] 135 mmol/L Critically low 136-145 [facility] Comment on above: Performed By: #### C MP, LIPID #### [facility] [address] [address] [address] Sarah Napoles Urea nitrogen [Mass/Vol] 13.0 mg/dL Normal 7.0-18.0 [facility] Comment on above: Performed By: #### C MP, LIPID #### [facility] [address] [address] [address] Sarah Napoles Urea nitrogen/Creatinine [Mass ratio] 19.1 mg/mg Normal [facility] Comment on above: Performed By: #### C MP, LIPID #### [facility] [address] [address] [address] Sarah Napoles POC GLUCOSE LABon 01-03-2021 Glucose [Mass/Vol] 119 mg/dL High 70-100 [facility] Comment on above: Performed By: #### 8 5499 #### [facility] [address] [place] [address], [place] Glucose [Mass/Vol] 145 mg/dL High 70-100 [facility] Comment on above: Performed By: #### 8 5499 #### [facility] [address] [place] [address], [place] Glucose [Mass/Vol] 93 mg/dL Normal 70-100 [facility] Comment on above: Performed By: #### 8 5499 #### [facility] [address] [place] [address], [place] Glucose [Mass/Vol] 99 mg/dL Normal 70-100 [facility] Comment on above: Performed By: #### 8 5499 #### [facility] [address] [place] [address], [place] POC GLUCOSE LABon 01-02-2020 Glucose [Mass/Vol] 101 mg/dL High 70-100 [facility] Comment on above: Performed By: #### 8 5499 #### [facility] [address] [place] [address], [place] Glucose [Mass/Vol] 127 mg/dL High 70-100 [facility] Comment on above: Performed By: #### 8 5499 #### [facility] [address] [place] [address], [place] Glucose [Mass/Vol] 110 mg/dL High 70-100 [facility] Comment on above: Performed By: #### 8 5499 #### [facility] [address] [place] [address], [place] BASIC METABOLIC PANELon 12-05 Calcium [Mass/Vol] 8.4 mg/dL Low 8.6-10.3 [facility] Comment on above: Order Comment: No: D o not add to previous draw Performed By: #### 8 5499 #### [facility] [address] [place] [address], [place] Chloride [Moles/Vol] 106 mmol/L Normal 98-107 [facility] Comment on above: Order Comment: No: D o not add to previous draw Performed By: #### 8 5499 #### [facility] [address] [place] [address], [place] CO2 [Moles/Vol] 29 mmol/L Normal 21-31 The [facility] Comment on above: Order Comment: No: D o not add to previous draw Performed By: #### 8 5499 #### [facility] [address] [place] [address], [place] Creatinine [Mass/Vol] 0.50 mg/dL Low 0.60-1.20 [facility] Comment on above: Order Comment: No: D o not add to previous draw Performed By: #### 8 5499 #### [facility] [address] [place] [address], [place] GFR/1.73 sq M.predicted among blacks MDRD (S/P/Bld) [Vol rate/Area] mL/min/{1.73_m2} Normal >60 [facility] Comment on above: Order Comment: No: D o not add to previous draw Performed By: #### 8 5499 #### [facility] [address] [place] [address], [place] GFR/1.73 sq M.predicted among non-blacks MDRD (S/P/Bld) [Vol rate/Area] mL/min/{1.73_m2} Normal >60 [facility] Comment on above: Order Comment: No: D o not add to previous draw Performed By: #### 8 5499 #### [facility] [address] [place] [address], [place] Glucose [Mass/Vol] 88 mg/dL Normal 70-100 [facility] Comment on above: Order Comment: No: D o not add to previous draw Performed By: #### 8 5499 #### [facility] [address] [place] [address], [place] Potassium [Moles/Vol] 3.3 mmol/L Low 3.5-5.1 [facility] Comment on above: Order Comment: No: D o not add to previous draw Performed By: #### 8 5499 #### [facility] [address] [place] [address], [place] Sodium [Moles/Vol] 141 mmol/L Normal 136-145 [facility] Comment on above: Order Comment: No: D o not add to previous draw Performed By: #### 8 5499 #### [facility] [address] [facility] Urea nitrogen [Mass/Vol] 10 mg/dL Normal 7-25 [facility] Comment on above: Order Comment: No: D o not add to previous draw Performed By: #### 8 5499 #### [facility] [address] [facility] [place] [address], [facility] CBC W/DIFFon 01-01-2021 ABS IMM GRANS 0.1 10*3/uL Normal 0.0-0.2 [facility] Comment on above: Order Comment: No: D o not add to previous draw Performed By: #### 5 0103 #### [facility] [address] [place] [address], [facility] ABS NEUTROPHILS 10.1 10*3/uL High 1.6-7.6 The [facility] Comment on above: Order Comment: No: D o not add to previous draw Performed By: #### 5 0103 #### [facility] [address] [place] [address], [facility] Basophils (Bld) [#/Vol] 0.0 10*3/uL Normal 0.0-0.2 [facility] Comment on above: Order Comment: No: D o not add to previous draw Performed By: #### 5 0103 #### [facility] [address] [facility] [address], [facility] Basophils/100 WBC (Bld) 0.2 % Normal 0.0-1.0 [facility] Comment on above: Order Comment: No: D o not add to previous draw Performed By: #### 5 0103 #### [facility] [address] [facility] [address], [facility] Eosinophils (Bld) [#/Vol] 0.0 10*3/uL Normal 0.0-0.5 [facility] Comment on above: Order Comment: No: D o not add to previous draw Performed By: #### 5 0103 #### [facility] [address] [place] [address], [facility] Eosinophils/100 WBC (Bld) 0.1 % Normal 0.0-6.0 [facility] Comment on above: Order Comment: No: D o not add to previous draw Performed By: #### 5 0103 #### [facility] [address] Erythrocyte distribution width (RBC) [Ratio] 13.1 % Normal 11.5-15.0 [facility] Comment on above: Order Comment: No: D o not add to previous draw Performed By: #### 5 0103 #### [facility] [address] Hematocrit (Bld) [Volume fraction] 27.7 % Low 36.0-45.0 [facility] Comment on above: Order Comment: No: D o not add to previous draw Performed By: #### 5 0103 #### [facility] [address] Hemoglobin (Bld) [Mass/Vol] 9.2 g/dL Low 12.0-15.0 [facility] Comment on above: Order Comment: No: D o not add to previous draw Result Comment: RESU LTS CHECKED Performed By: #### 5 3 #### [facility] [address] [facility] [address], [facility] IMMATURE GRANS 0.4 % Normal 0.0-1.0 The [facility] Comment on above: Order Comment: No: D o not add to previous draw Performed By: #### 5 0103 #### [facility] [address] [place] [address], [facility] Lymphocytes (Bld) [#/Vol] 1.8 10*3/uL Normal 1.2-4.0 [facility] Comment on above: Order Comment: No: D o not add to previous draw Performed By: #### 5 3 #### [facility] [address] [facility] [address], [facility] Lymphocytes/100 WBC (Bld) 13.6 % Low 20.0-45.0 [facility] Comment on above: Order Comment: No: D o not add to previous draw Performed By: #### 5 0103 #### [facility] [address] [facility] [address], [facility] MCH (RBC) [Entitic mass] 32.4 pg Normal 27.0-33.0 [facility] Comment on above: Order Comment: No: D o not add to previous draw Performed By: #### 5 3 #### [facility] [address] MCHC (RBC) [Mass/Vol] 33.2 g/dL Normal 32.0-35.0 [facility] Comment on above: Order Comment: No: D o not add to previous draw Performed By: #### 5 3 #### [facility] [address] [facility] [address], [facility] MCV (RBC) [Entitic vol] 97.5 fL Normal 82.0-98.0 [facility] Comment on above: Order Comment: No: D o not add to previous draw Performed By: #### 5 102 #### [facility] [address] [place] [address], [facility] Monocytes (Bld) [#/Vol] 1.4 10*3/uL High 0.1-1.0 [facility] Comment on above: Order Comment: No: D o not add to previous draw Performed By: #### 5 3 #### [facility] [address] [place] [address], [facility] MONOS 10.1 % Normal 5.0-12.0 [facility] Comment on above: Order Comment: No: D o not add to previous draw Performed By: #### 5 3 #### [facility] [address] [place] [address], [place] Neutrophils/100 WBC (Bld) 75.6 % High 40.0-72.0 [facility] Comment on above: Order Comment: No: D o not add to previous draw Performed By: #### 5 0103 #### [facility] [address] [place] [address], [place] Nucleated RBC/100 WBC (Bld) [Ratio] 0 % Normal 0-0 [facility] Comment on above: Order Comment: No: D o not add to previous draw Performed By: #### 5 0103 #### [facility] [address] [place] [address], [place] PLAT CNT 237 10*3/uL Normal 150-400 The [facility] Comment on above: Order Comment: No: D o not add to previous draw Performed By: #### 5 0103 #### [facility] [address] [place] [address], [place] RBC (Bld) [#/Vol] 2.84 10*6/uL Low 3.80-5.00 [facility] Comment on above: Order Comment: No: D o not add to previous draw Performed By: #### 5 0103 #### [facility] [address] [place] [address], [place] WBC (Bld) [#/Vol] 13.43 10*3/uL High 4.00-10.60 [facility] Comment on above: Order Comment: No: D o not add to previous draw Performed By: #### 5 0103 #### [facility] [address] [place] [address], [place] POC GLUCOSE LABon 01-01-2021 Glucose [Mass/Vol] 115 mg/dL High 70-100 [facility] Comment on above: Performed By: #### 8 5499 #### [facility] [address] [facility] [place] [address], [place] Glucose [Mass/Vol] 110 mg/dL High 70-100 [facility] Comment on above: Performed By: #### 8 5499 #### [facility] [address] [facility] [place] [address], [place] Glucose [Mass/Vol] 111 mg/dL High 70-100 [facility] [facility] Comment on above: Performed By: #### 8 [id number] #### [facility] [address] [facility] [place] [address], [place] Glucose [Mass/Vol] 102 mg/dL High 70-100 [facility] Comment on above: Performed By: #### 8 [id number] #### [facility] [address] [facility] [place] [address], [facility] HIP RIGHT 1 OR 2 VWS WITH PE LVISon 12-31-2020 HIP RIGHT 1 OR 2 VWS WITH PELVIS [facility] Department of Radiology [address] [place] [phone] Patient Name: BLANCA MOE : 1960 Sex: [...] reports Electronically signed: Panda Smith. Transcribed by: [email or web address], User Resident: SCHUYLER RODRIGUES Electronically Signed by: PANDA SMITH @ 12/31/2020 04:29 PM I personally read this/these film(s) with this resident Normal [facility] Comment on above: Order Comment: RIGHT ANTERIOR TOTAL HIP REPLACEMENT Operative Reporton Operative Report MR#: [id number] I [facility] Pt. Name: Blanca Moe Room #: [id number] Discharge Date: Birthdate: 1960 OPERATIVE REPORT DATE [...] right hip pain despite nonoperative measures. 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 Date Trans: 12/31/2020 09:28 P/mmo [id number] Normal [facility] POC GLUCOSE LABon 12-31-2020 Glucose [Mass/Vol] 167 mg/dL High 70-100 [facility] Comment on above: Performed By: #### 8 [id number] #### [facility] [address] [facility] [place] [address], [place] Glucose [Mass/Vol] 162 mg/dL High 70-100 [facility] Comment on above: Performed By: #### 8 [id number] #### [address] [place] [address], [place] Glucose [Mass/Vol] 168 mg/dL High 70-100 [facility] Comment on above: Performed By: #### 8 [id number] #### [facility] [address] [facility] [place] [address], [place] Glucose [Mass/Vol] 104 mg/dL High 70-100 [facility] Comment on above: Performed By: #### 8 [id number] #### [facility] [address] [facility] [place] [address], [place] PORTABLE HIP RIGHT 1 OR 2 VW S WITH PELVISon 12-31-2020 PORTABLE HIP RIGHT 1 OR 2 VWS WITH PELVIS [facility] Department of Radiology [address] [place] [phone] Patient Name: BLANCA MOE : 1960 [...] fracture Electronically signed: Panda Smith. Transcribed by: [email or web address], User Resident: Electronically Signed by: PANDA SMITH @ 12/31/2020 01:05 PM Normal [facility] Comment on above: Order Comment: Hardw are Evaluation, PACU *MRSA/MSSA DNA NASALon 12-10 *MRSA/MSSA DNA NASAL Clinical Report: (D ) Specimen: NASAL SWAB Collected: 12/10/2020 13:55 Status: Final Last Updated: 12/11/2020 15:48 MSSA DNA (Final) Negative MRSA DNA (Final) Negative Normal [facility] Comment on above: Performed By: #### 8 [id number] #### [facility] [address] CBC W/DIFFon 12-10-2020 ABS IMM GRANS 0.0 10*3/uL Normal 0.0-0.2 The [facility] Comment on above: Performed By: #### 8 [id number] #### [facility] [address] [place] [address], [facility] ABS NEUTROPHILS 7.7 10*3/uL High 1.6-7.6 The [facility] Comment on above: Performed By: #### 8 [id number] #### [facility] [address] [place] [address], [facility] Basophils (Bld) [#/Vol] 0.1 10*3/uL Normal 0.0-0.2 [facility] Comment on above: Performed By: #### 8 [id number] #### [facility] [address] [place] [address], [facility] Basophils/100 WBC (Bld) 0.6 % Normal 0.0-1.0 [facility] Comment on above: Performed By: #### 8 [id number] #### [facility] [address] [place] [address], [facility] Eosinophils (Bld) [#/Vol] 0.1 10*3/uL Normal 0.0-0.5 [facility] Comment on above: Performed By: #### 8 [id number] #### [facility] [address] [place] [address], [facility] Eosinophils/100 WBC (Bld) 1.0 % Normal 0.0-6.0 [facility] Comment on above: Performed By: #### 8 [id number] #### [facility] [address] [facility]. [address] Erythrocyte distribution width (RBC) [Ratio] 13.0 % Normal 11.5-15.0 [facility] Comment on above: Performed By: #### 8 [id number] #### [facility] [address] [facility]. [address] Hematocrit (Bld) [Volume fraction] 36.2 % Normal 36.0-45.0 [facility] Comment on above: Performed By: #### 8 [id number] #### [facility] [address] Hemoglobin (Bld) [Mass/Vol] 11.9 g/dL Low 12.0-15.0 [facility] Comment on above: Performed By: #### 8 [id number] #### [facility] [address] IMMATURE GRANS 0.3 % Normal 0.0-1.0 The [facility] Comment on above: Performed By: #### 8 [id number] #### [facility] [address] [place] [address], [facility] Lymphocytes (Bld) [#/Vol] 1.5 10*3/uL Normal 1.2-4.0 [facility] Comment on above: Performed By: #### 8 [id number] #### [facility] [address] [facility]. [address] Lymphocytes/100 WBC (Bld) 15.1 % Low 20.0-45.0 [facility] Comment on above: Performed By: #### 8 [id number] #### [facility] [address] MCH (RBC) [Entitic mass] 31.9 pg Normal 27.0-33.0 [facility] Comment on above: Performed By: #### 8 [id number] #### [facility] [address] [place] [address], [facility] MCHC (RBC) [Mass/Vol] 32.9 g/dL Normal 32.0-35.0 [facility] Comment on above: Performed By: #### 8 [id number] #### [facility] [address] [place] [address], [facility] MCV (RBC) [Entitic vol] 97.1 fL Normal 82.0-98.0 [facility] Comment on above: Performed By: #### 8 [id number] #### [facility] [address] [facility] [place] [address], [facility] Monocytes (Bld) [#/Vol] 0.7 10*3/uL Normal 0.1-1.0 [facility] Comment on above: Performed By: #### 8 [id number] #### [facility] [address] [facility] [place] [address], [facility] MONOS 7.3 % Normal 5.0-12.0 [facility] Comment on above: Performed By: #### 8 [id number] #### [facility] [address] [facility] [place] [address], [facility] Neutrophils/100 WBC (Bld) 75.7 % High 40.0-72.0 [facility] Comment on above: Performed By: #### 8 [id number] #### [facility] [address] [facility] [place] [id number], [facility] Nucleated RBC/100 WBC (Bld) [Ratio] 0 % Normal 0-0 [facility] Comment on above: Performed By: #### 8 [id number] #### [facility] [address] [facility] [place] [id number], [facility] PLAT CNT 290 10*3/uL Normal 150-400 The [facility] Comment on above: Performed By: #### 8 [id number] #### [facility] [address] [place] [address], [facility] RBC (Bld) [#/Vol] 3.73 10*6/uL Low 3.80-5.00 The [facility] Comment on above: Performed By: #### 8 [id number] #### [facility] [address] [facility] [place] [address], [facility] WBC (Bld) [#/Vol] 10.11 10*3/uL Normal 4.00-10.60 [facility] Comment on above: Performed By: #### 8 [id number] #### [facility] [address] [facility] [place] [address], [facility] HEMOGLOBIN A1Con 12-10-2020 Glucose [Moles/Vol] 108 mmol/L Normal [facility] Comment on above: Performed By: #### 3 1791 #### [facility] [address] [facility] [place] [address], [facility] HbA1c (Bld) [Mass fraction] 5.4 % Normal 4.0-6.0 [facility] Comment on above: Performed By: #### 3 1791 #### [facility] [address] [place] [address], [facility] HIP RIGHT 1 OR 2 VWS WITH PE LVISon 11-22-2020 HIP RIGHT 1 OR 2 VWS WITH PELVIS [facility] Department of Radiology [address] [place] [phone] Patient Name: BLANCA MOE : 1960 [...] exam. Electronically signed: Rodney Sutherland. Transcribed by: [email or web address], User Resident: Electronically Signed by: RODNEY SUTHERLAND @ 11/22/2020 03:43 PM Normal [facility] Comment on above: Order Comment: Evalu ate Encounters Encounter Date Encounter Type Care Provider Facility Start: 07-26-2024 End: 07-28-2024 Refill Afsaneh Morrow MA [facility] Comment on above: Chronic left shoulde r pain; Chronic pain of left knee Start: 07-14-2024 End: 07-18-2024 Refill Joanna Wyman [employer] Work Phone: [facility] Comment on above: Chronic left shoulde r pain; Chronic pain of left knee Start: 07-13-2024 End: 07-13-2024 Orders Only Joanna Wyman [employer]PER[employer] Work Phone: [facility] Comment on above: Suspected chronic ob structive pulmonary disease based on initial evaluation (CMS/HCC) (Primary Dx); Mild intermittent asthma without complication ([facility]) Start: 07-12-2024 End: 07-12-2024 Clinisync Result Encounter Joanna Chamberspatrick [employer] SUPERVISOR Work Phone: [facility] Unsolicited Start: 07-12-2024 End: 07-12-2024 Clinisync Result Encounter Joanna Wyman [employer] SUPERVISOR Work Phone: [facility] Unsolicited Start: 07-07-2024 End: 07-07-2024 Orders Only Joanna Owenzpatrick [employer] SUPERVISOR Work Phone: [facility] Comment on above: Suspected chronic ob structive pulmonary disease based on initial evaluation ([facility]) (Primary Dx) Start: 06-27-2024 End: 06-27-2024 ambulatory Chikis May MD Facility: [facility] Start: 06-14-2024 End: 06-14-2024 ambulatory JOANNA WYMAN Not Available Start: 05-02-2024 End: 05-02-2024 ambulatory Chikis May MD Facility: [facility] Start: 03-15-2024 Preoperative state Joanna Metz aguilar [employer]PER[employer]OR Work Phone: [facility] Start: 03-15-2024 End: 03-15-2024 ambulatory SHAIKH REYES Not Available Start: 12-10-2023 End: 12-10-2023 ambulatory SHAIKH REYES Not Available Start: 11-12-2023 Orders Only Shaikh Reyes PALACIO Work Phone: [facility] Comment on above: Chronic left shoulde r pain; Chronic pain of left knee Start: 11-09-2023 End: 11-09-2023 ambulatory Chikis May MD Facility: [facility] Start: 09-08-2023 End: 09-08-2023 ambulatory SHAIKH REYES Not Available Start: 09-08-2023 Patient encounter procedure Shaikh Reyes PALACIO Work Phone: [facility] Start: 03-03-2023 End: 03-04-2023 ambulatory [place] [...] Start: 12-31-2020 End: 01-03-2021 ambulatory PHYSICIAN UNKNOWN Facility:[facility] Procedures Date Procedure Procedure Detail Performing Clinician Start: 07-12-2024 ALL HEMOGLOBIN Joanna Wyman [employer]PER[employer]OR Work Phone: Start: 01-08-2024 Mammography Joanna F jinpatricjermaine [employer]PER[employer]OR Work Phone: Start: 09-08-2023 Mammography Shaikh Mayelin rankin MD Work Phone: Start: 12-31-2020 ANESTH HIP ARTHROPLASTY HERMINIO ROBERTS Start: 12-31-2020 JOINT DEVICE (IMPLANTABLE) HERMINIO ROBERTS Start: 12-31-2020 TOTAL HIP ARTHROPLASTY HERMINIO ROBERTS Start: 10-05-2017 Colonoscopy Shaikh Mayelin rankin MD Work Phone: Plan of Treatment Date Care Activity Detail Author Start: 2077 Urine screening for protein Diabetes: Urine Protein Screening [facility] Start: 10-05-2027 Screening for malign ant neoplasm of colon [facility] Start: 01-07-2025 Screening for malign ant neoplasm of breast Mammogram [facility] Start: 09-13-2024 End: 09-13-2024 Patient encounter procedure 09/13/2024 3:00 PM EST Office Visit [facility] [address] [place] [phone] Joanna Wyman NP [address] [place] [phone] [facility] Start: 09-08-2024 Medicare Annual Wellness (AWV) Medicare Annual Wellness (AWV) [facility] Start: 09-08-2024 Screening for malign ant neoplasm of breast Mammogram [facility] Start: 07-07-2024 End: 07-07-2025 Pulmonary function report Pulmonary Function Test Imaging Routine Suspected chronic obstructive pulmonary disease based on initial evaluation ([facility]) Expected: 07/07/2024, Expires: 07/07/2025 [facility] Work Phone: Comment on above: Expected: 07/07/2024 , Expires: 07/07/2025 Start: 06-05-2024 Influenza vaccination Influenza Vacc ine (#1) [facility] Start: 12-09-2023 End: 12-09-2023 Patient encounter procedure 12/09/2023 3:30 PM EST Office Visit [facility] [address] [place] [phone] Shaikh Chambers MD [address] [place] [phone] [facility] Start: 06-05-2023 Influenza vaccination Influenza Vacc ine (#1) [facility] Start: 2023 Pneumococcal Vaccine : 65+ Years (1 - PCV) Pneumococcal Vaccine: 65+ Years (1 - PCV) [facility] Start: 1988 Screening for malign ant neoplasm of cervix [facility] Start: 06-06-1979 Screening for malign ant neoplasm of cervix Pap Smear [facility] Start: 1964 Pneumococcal Vaccine : 65+ Years (1 of 2 - PCV) Pneumococcal Vaccine: 65+ Years (1 of 2 - PCV) [facility] Start: 1960 Screening for malign ant neoplasm of colon [facility] Immunizations Immunization Date Immunization Notes Care Provider Denisse fraser 10-20-2022 tetanus toxoid, redu liudmila diphtheria toxoid, and acellular pertussis vaccine, adsorbed Joanna Wyman [employer]PER[employer]OR Work Phone: [facility] 10-20-2022 zoster vaccine recombinant Joanna Wyman [employer]PERVISOR Work Phone: [facility] 10-01-2022 influenza, injectabl e, quadrivalent, preservative free Joanna Wyman [employer]PER[employer]OR Work Phone: [facility] 10-01-2022 influenza virus vaccine, unspecified formulation Shaikh Reyes PALACIO Work Phone: [facility] 12-24-2010 hepatitis B vaccine, pediatric or pediatric/adolescent dosage Joanna Wyman [employer] SUPERVISOR Work Phone: [facility] 10-18-2010 hepatitis B vaccine, pediatric or pediatric/adolescent dosage Joanna Wyman [employer] SUPERVISOR Work Phone: [facility] 06-28-2010 hepatitis B vaccine, pediatric or pediatric/adolescent dosage Joanna Wyman [employer] SUPERVISOR Work Phone: [facility] Payers Date Payer Category Payer Unknown 2021 Medicare [facility]LY [facility] MEDICARE ADVANTAGE [employer] [id number] 2021-Present [address] [place] [address] [id number] 2021 Medicare (Managed Care) [employer] ADVANTAGE [id number] 1959 Unknown [id number] 1960 Unknown [id number] 2.16.840.1.592840.3.579. 2.647 1960 Unknown [id number] 2.16.840.1.911499.3.579. 2.593 1960 Unknown [id number] 2.16.840.1.541211.3.579. 2.593 1960 Unknown [id number] 2.16.840.1.651387.3.579. 2.593 1960 Unknown [id number] 2.16.840.1.556384.3.579. 2.593 1960 Unknown [id number] 2.16.840.1.600521.3.579. 2.593 1960 Unknown [id number] 2.16.840.1.587630.3.579. 2.593 1960 Unknown [id number] 2.16.840.1.197570.3.579. 2.593 1960 Unknown [id number] 2.16.840.1.571761.3.579. 2.593 1960 Unknown [id number] 2.16.840.1.719568.3.579. 2.593 1958 Unknown [id number] 2.16.840.1.318742.3.579. 2.1259 1960 Unknown [id number] 2.16.840.1.523202.3.579. 2.1259 1960 Unknown [id number] 2.16.840.1.339725.3.579. 2.1259 1958 Unknown [id number] 2.16.840.1.260833.3.579. 2.1259 1960 Unknown [id number] 2.16.840.1.324318.3.579. 2.196 1960 Unknown [id number] 2.16.840.1.121426.3.579. 2.196 1960 Unknown [id number] 2.16.840.1.081248.3.579. 2.196 Social History Date Type Detail Facility Start: 09-08-2023 End: 03-15-2024 Tobacco smoking status CAIS Ex-smoker [facility] Start: 12-03-1980 End: 12-03-2020 History of tobacco use Current smoker [facility] Start: 12-03-1980 End: 12-03-2020 History of [...] to any clubs or organizations such as denominational groups, unions, fraternal or athletic groups, or [...] Not at all [facility] (I/We) worried [facility] (my/our) food would run out before (I/we) got money to buy more. Never true [facility] Start: 08-20-2023 Tobacco Comment Last smoked 1-5 year s [facility] Start: 09-08-2023 Alcohol Comment quit 10 years ago [facility] Start: 1960 Sex Assigned At Not on file [facility] History of tobacco use Passive smoker [facility] Telephone encounter Note 07-26-2024 Telephone Encounter - Afsaneh Morrow MA - 07/26/2024 3:59 PM EDT Note Date & Type Note Facility 07-26-2024 Telephone encount er Note Pt states she used to be directed to take her paxil 20 mg and split it in half, she wanted to explain to you she does not actually take the 20 mg She also would like a refill on her Oxycodone. [facility]:06/14/2024 NOV:09/13/2024 [facility] Note 07-26-2024 Telephone Encounter - Afsaneh Morrow MA - 07/26/2024 3:59 PM EDT Note Date & Type Note Facility 07-26-2024 Miscellaneous Notes Formattin g of this note might be different from the original. Pt states she used to be directed to take her paxil 20 mg and split it in half, she wanted to explain to you she does not actually take the 20 mg She also would like a refill on her Oxycodone. [facility]:06/14/2024 NOV:09/13/2024 documented in this encounter [facility] Clinical Note 12-17-2022 Note Date [...] authenticated by: JOVANNI MILLAN Date: 2022-12-17 16:26 [facility] Evaluation note Note Date & Type Note Facility Evaluation note Diagnosis Chronic left shoulder pain Pain in joint, shoulder region Chronic pain of left knee documented in this encounter [facility] Evaluation note Note Date & Type Note Facility Evaluation note Diagnosis Suspected chronic obstructive pulmonary disease based on initial evaluation (CMS/HCC)- Primary documented in this encounter [facility] Evaluation note Note Date & Type Note Facility Evaluation note Diagnosis Suspected chronic obstructive pulmonary disease based on initial evaluation (CMS/HCC)- Primary Mild intermittent asthma without complication (CMS/HCC) documented in this encounter [facility] Evaluation note Note Date & [...] of left knee documented in this encounter [facility] Evaluation note Note Date & [...] obstructive pulmonary disease based on initial evaluation ([facility]) Pre-operative clearance- Primary Unspecified pre-operative examination Primary hypertension (CMS/HCC)- Primary Unspecified essential hypertension Symptoms of upper respiratory infection (URI) Chronic left shoulder pain Pain in joint, shoulder region Mixed hyperlipidemia (CMS/HCC) Mixed hyperlipidemia Suspected chronic obstructive pulmonary disease based on initial evaluation ([facility]) Chronic pain of left knee Chronic left [...] content) DATE CREATED AUTHOR 02/27/2021 [facility] DATE CREATED AUTHOR AUTHOR'S ORGANIZ ATION 03/13/2023 [facility] DATE CREATED AUTHOR AUTHOR'S ORGANIZ ATION 06/16/2024 [facility] DATE CREATED AUTHOR AUTHOR'S ORGANIZ ATION 07/04/2024 [facility] Care Teams (unrecognized sec tion and content) Nutritional Yeast Supervisor Relationship Specialty Start Date End Date Shaikh Chambers MD PCP - General Internal Medicine 05/04/23 Nutritional Yeast Supervisor Relationship Specialty Start Date End Date Jose Guadalupe Villafuerte MD [address] [place] [phone] PCP - General Family Medicine 05/12/24 Joanna Wyman NP [address] [place] [address] Nurse Practitioner Family Medicine 05/12/24 Nutritional Yeast Supervisor Relationship Specialty Start Date End Date Jose Guadalupe Villafuerte MD [address] [place] [phone] PCP - General Family Medicine 05/12/24 Joanna Wyman NP [address] [place] [address] Nurse Practitioner Family Medicine 05/12/24 Nutritional Yeast Supervisor Relationship Specialty Start Date End Date Jose Guadalupe Villafuerte MD [address] [place] [phone] PCP - General Family Medicine 05/12/24 Joanna Wyman NP [address] [place] [address] Nurse Practitioner Family Medicine 05/12/24 Nutritional Yeast Supervisor Relationship Specialty Start Date End Date Jose Guadalupe Villafuerte MD [address] [place] [phone] PCP - General Family Medicine 05/12/24 Joanna Wyman NP [address] [place] [address] Nurse Practitioner Family Medicine 05/12/24 Nutritional Yeast Supervisor Relationship Specialty Start Date End Date Unallocated, [facility], [address] [place] [address] PCP - General Family Medicine 07/25/24 Joanna Wyman NP [address] [place], [place] [address] [phone] Nurse Practitioner Family Medicine 05/12/24 Reason for Visit (unrecogniz ed section and content) Reason Onset Date Comments Med Refill 07/14/2024 Reason Onset Date Comments Med Refill 07/26/2024 FOR RECORDS PERTAINING TO PATIENTS WHO ARE [...] BE BASED ON THE PRIMARY CLINICAL RECORDS. [employer] provides no warranty or guarantee of the accuracy or completeness of information in this document.
== END 2024-07-29 13:57 | disposition home or self-care (01) ==
LOC: RAD 13:58
DX: M25.562 Pain in left knee (principal); G89.29 Other chronic pain; M17.0 Bilateral primary osteoarthritis of knee
CPT/HCPCS: 73565

== ENCOUNTER 2025-01-04 13:57 | Outpatient (OUT) | payer MEDICARE, SELFPAY | END 2025-01-04 13:58 | disposition home or self-care (01) | LOC: RAD 13:58 | PROVIDERS: PCP Family Medicine; Visit Provider Family Medicine | DX: M81.0 Age-related osteoporosis without current pathological fracture (principal) | CPT/HCPCS: 77080 ==

== ENCOUNTER 2025-01-24 12:39 | Outpatient (OUT) | payer MEDICARE, SELFPAY ==
[2025-01-24 13:04] LABS: Basophils Percent Auto 0.5 % (0.2-2.0); Eosinophils Absolute Auto 0.1 10^3/uL (0.0-0.7); Eosinophils Percent Auto 1.6 % (0.9-7.0); Hematocrit 35.2 % (36.0-48.0); Hemoglobin 11.9 g/dL (12.0-16.0); Immature Granulocytes Abs Auto 0.03 10^3/uL (0.00-0.03); Immature Granulocytes Pct Auto 0.3 % (0.0-0.5); Lymphocytes Absolute Auto 1.8 10^3/uL (1.2-3.8); Mean Corpuscular HGB Conc 33.8 g/dL (29.9-35.2); Mean Corpuscular Hemoglobin 32.9 pg (26.7-34.0); Mean Corpuscular Volume 97.2 fL (81.0-99.0); Mean Platelet Volume 10.3 fL (9.5-13.5); Monocytes Absolute Auto 0.7 10^3/uL (0.3-0.8); Monocytes Percent Auto 7.6 % (1.7-12.0); Platelet Count 254 10^3/uL (150-450); Red Blood Count 3.62 10^6/uL (4.20-5.40); Red Cell Distribution Width 13.2 % (11.0-15.0); White Blood Count 8.7 10^3/uL (4.0-11.0)
[2025-01-24 13:32] LABS: Estimated Average Glucose 114 mg/dL; Glycohemoglobin A1C 5.6 % (4.5-6.2)
[2025-01-24 13:48] LABS: Alanine Aminotransferase 28 U/L (14-59); Albumin Level 3.6 g/dL (3.4-5.0); Alkaline Phosphatase 53 U/L (46-116); Anion Gap 12.5; Aspartate Amino Transferase 19 U/L (15-37); BUN Creatinine Ratio 15.5; Bilirubin Direct 0.1 mg/dL (0.0-0.2); Bilirubin Total 0.7 mg/dL (0.2-1.0); Calcium 9.5 mg/dL (8.5-10.1); Carbon Dioxide 31.2 mmol/L (21.0-32.0); Chloride 100 mmol/L (98-107); Chol HDL Ratio 3.3; Cholesterol 177 mg/dL (<=200); Estimated GFR (African America >60 (>=60 mL/min/1.73m^2); Estimated GFR (Non-African Ame >60 (>=60 mL/min/1.73m^2); Globulin 3.7 g/dL; Glucose 85 mg/dL (74-106); HDL Cholesterol 53 mg/dL (40-60); Potassium 3.7 mmol/L (3.5-5.1); Sodium 140 mmol/L (136-145); Thyroid Stimulating Hormone 0.508 uIU/mL (0.358-3.740); Total Protein 7.3 g/dL (6.4-8.2); Triglycerides 173 mg/dL (<=150); VLDL CHOLESTEROL 34.6 mg/dL
== END 2025-01-24 12:40 | disposition home or self-care (01) ==
LOC: LAB 12:40
PROVIDERS: PCP Family Medicine; Visit Provider Family Medicine
DX: R73.03 Prediabetes (principal); Z79.899 Other long term (current) drug therapy; E78.5 Hyperlipidemia, unspecified; E66.811 Obesity, class 1; E66.09 Other obesity due to excess calories; Z68.30 Body mass index [BMI] 30.0-30.9, adult
CPT/HCPCS: 36415; 80048; 80061; 80076; 83036; 84443; 85025

== ENCOUNTER 2025-02-16 11:00 | Outpatient (OUT) | payer MEDICARE, SELFPAY ==
--- OUTSIDE RECORDS SUMMARY | 2025-02-16 11:17 | XMS_ITS | CCD ---
Author Organization [facility] Care Team Providers Care Research Animal Attendant Name Role Phone UNKNOWN, PHYSICIAN Primary Care Unavailable UNKNOWN, PHYSICIAN Referring Unavailable HERMINIO ROBERTS Admitting Unavailable HERMINIO ROBERTS Attending Unavailable HERMINIO ROBERTS Surgeon Unavailable GA Procedure Practitioner Unavailab PATRICIA GarciaIKH H Consulting Unavailable FAWWAD, WHITFIELD H Attending Unavailable FAWWAD, WHITFIELD H Admitting Unavailable FAWWAD, WHITFIELD H Primary Care Unavailable FAWWAD, WHITFIELD H Attending Unavailable FAWWAD, WHITFIELD H Admitting Unavailable ZIEBBETTY, DR SLIME Ashraf Consulting Unavailable FAWWAD, WHITFIELD H Primary [...] MARIA ANTONIA Toro Consulting Unavailable CAITY, DR SLIME Ashraf Consulting Unavailable FAWWAD, WHITFIELD H Primary Care Unavailable WEST, DR MARIA ANTONIA Toro Attending Unavailable WEST, DR MARIA ANTONIA Toro Admitting Unavailable WEST, DR MARIA ANTONIA Toro Consulting Unavailable FAUSTINOEBBETTY, DR SLIME Ashraf Consulting Unavailable FAWWAD, WHITFIELD H Primary Care Unavailable WEST, DR MARIA ANTONIA Toro Attending Unavailable WEST, DR MARIA ANTONIA Toro Admitting Unavailable WEST, DR MARIA ANTONIA Toro Consulting Unavailable FAUSTINOEBBETTY, DR SLIME Ashraf Consulting Unavailable FAWWAD, WHITFIELD H Primary Care Unavailable WEST, DR MARIA ANTONIA Toro Attending Unavailable WEST, DR MARIA ANTONIA Toro Admitting Unavailable JORGE, DR MARIA ANTONIA Toro Consulting Unavailable SHAIKH Gerson CHAMBERS Attending Unavailable SHAIKH Gerson CHAMBERS Admitting Unavailable DR SLIME MILLAN Consulting Unavailable SHAIKH Gerson CHAMBERS Primary Care Unavailable SHAIKH Gerson CHAMBERS Consulting Unavailable Shaikh Chambers MD Primary Care Provider Lalo PALACIO, Chikis Henderson Attending Unavailable Lalo PALACIO, Chikis Henderson Attending Unavailable Lalo PALACIO, Sylrius Henderson Attending Unavailable Noy PALACIO, Jose Guadalupe Primary Care Provider Zamzam RETAIL ACCOUNT SPECIALIST, Maisha Unavailable Zachlocatdorian PALACIO, Tamys Provider Primary Care Provi royce Noy PALACIO, Jose Guadalupe Primary Care Provider JOSE GUADALUPE MEJIA Attending Unavailable SHAIKH CHAMBERS Attending Unavailable MAISHA WYMAN Attending UnavailDUNCAN Lackey Attending Unavailable MAISHA WYMAN Referring MAISHA Lyons Attending Unavailvivian Wyman RETAIL ACCOUNT SPECIALIST, Maisha Unavailable Reyes PALACIO, Unavailable Allergies Allergy Classification Reported Allergen(s) Allergy Type Date of Onset Reaction(s) Facility Aspirin (1 source) Aspirin; Translations: [ASPIRIN] Drug Allergy 12-26-2020 [facility] Repository (1 source) Amino Acids Drug Allergy [facility] Repository (1 source) Aspirin Drug Allergy [facility] Repository (20 sources) Aluminum aspirin Drug Allergy 04-30-2023 [facility] Medications Current Medications Medication Drug Class(es) Dates Sig (Normalized) Sig (Original) [id number] 200 actuat albuterol 0.09 mg/actuat metered dose inhaler (20 sources) beta2-Adrenergic Agonist Start: 03-15-2024 End: 07-14-2024 take 2 puff(s) by inhalation every four hours for wheezing albuterol HFA 90 mcg/act inhaler Indications: Suspected chronic obstructive pulmonary disease based on initial evaluation (CMS/[facility]) Inhale 2 puffs every 4 (four) hours if needed for wheezing 8.5 g 3 06/14/2024 Active alendronic acid 35 mg oral tablet (20 sources) Bisphosphonate Start: 12-20-2024 take 1 tablet by mouth in the [...] for the next 30 min. 12 tablet 3 12/20/2024 Active Start: 03-30-2024 End: 12-12-2024 take 1 tablet by mouth in the [...] for the next 30 min. 12 tablet 09/13/2024 12/12/2024 Active take 1 tablet by latha th once daily alendronate (Fosamax) 35 MG tablet 1 tablet 30 minutes before the first food, beverage or medicine of the day with plain water Orally 0 Active take 1 tablet by latha th every week alendronate (Fosamax) 70 MG tablet 1 tablet Orally ONCE WEEKLY 0 Active allopurinol 100 mg oral tablet (20 sources) Xanthine Oxidase Inhibitor Start: 01-10-2025 take 1 tablet by mouth in the morning allopurinol (Zyloprim) 100 MG tablet Indications: Hyperuricemia Take 1 tablet (100 mg) by mouth in the morning and 1 tablet (100 mg) before bedtime. 180 tablet 01/10/2025 Active Start: 04-13-2024 End: 10-10-2024 take 1 tablet by mouth in the morning allopurinol (Zyloprim) 100 MG tablet Indications: Hyperuricemia Take 1 tablet (100 mg) by mouth in the morning and 1 tablet (100 mg) before bedtime. 180 tablet 10/10/2024 Active allopurinol (Zyl oprim) 100 MG tablet [...] / vitamin e 6.75 mg chewable tablet (20 sources) Nicotinic Acid, Vitamin A, Vitamin B12, Vitamin D, Vitamin C Pediatric Multivitam ins-Fl (MultiVitamin + Fluoride) 0.25 MG chewable tablet Multivitamin Active B Complex Vitamins (VITAMIN B COMPLEX 100 IJ) (20 sources) B Complex Vitami ns (VITAMIN B COMPLEX 100 IJ) Vitamin B Complex Active B Complex Vitami ns (VITAMIN B COMPLEX 100 IJ) Vitamin B Complex 0 Active calcium carbonate 1500 mg oral tablet (20 sources) calcium carbonat e 1500 (600 Ca) MG tablet every 12 (twelve) hours. Active carvedilol 25 mg oral tablet (20 sources) alpha-Adrenergic Steph, beta-Adrenergic Steph Start: 01-10-2025 End: 04-10-2025 take 1 tablet by mouth in the morning carvedilol (Coreg) 25 MG tablet Indications: Primary hypertension (CMS/HCC) Take 1 tablet (25 mg) by mouth in the morning and 1 tablet (25 mg) in the evening. Take with meals. 180 tablet 01/10/2025 04/10/2025 Active Start: 01-12-2024 End: 01-08-2025 take 1 tablet by mouth in the morning carvedilol (Coreg) 25 MG tablet Indications: Primary hypertension (CMS/HCC) Take 1 tablet (25 mg) by mouth in the morning and 1 tablet (25 mg) in the evening. Take with meals. 180 tablet 10/10/2024 01/08/2025 Active carvedilol (Core g) 25 MG tablet every 12 (twelve) hours. 0 Active cholecalciferol 0.025 mg ora l capsule (20 sources) Vitamin D cholecalciferol (Vitamin D-3) 25 MCG (1000 UT) capsule 1 capsule 1 (one) time each day at the same time. Active cinnamon bark 500 mg oral capsule (20 sources) cinnamon 500 MG capsule as directed Orally Active cranberry preparation 500 mg oral capsule (20 sources) Non-Standardized Food Allergenic Extract, Non-Standardized Plant Allergenic Extract Cranberry 500 MG cap jazmín as directed Orally Active evening primrose oil 1000 mg oral capsule (20 sources) Evening Huson Oil 1000 MG capsule as directed Orally Active famotidine 20 mg oral tablet (20 sources) Histamine-2 Receptor Antagonist famotidine (Pepcid) 20 MG tablet 1 (one) time each day at the same time. Active Fish Oils (20 sources) omega-3 (FISH OI L) 300 MG capsule Fish Oil Active omega-3 (FISH OI L) 300 MG capsule Fish Oil 0 Active 60 actuat fluticasone propionate 0.1 mg/actuat / salmeterol 0.05 mg/actuat dry powder inhaler (19 sources) Corticosteroid, beta2-Adrenergic Agonist Start: 07-13-2024 End: 09-13-2024 take 1 puff(s) by inhalation once daily Fluticasone-Salmeterol (Advair Diskus) 100-50 MCG/ACT aerosol powder Indications: Suspected chronic obstructive pulmonary disease based on initial evaluation (CMS/[facility]) , Mild intermittent asthma without complication ([facility]) Inhale 1 puff Daily 60 each 2 09/13/2024 Active gabapentin 300 mg oral capsule (20 sources) Anti-epileptic Agent Start: 08-23-2023 take 1 capsule by mouth in the morning, then take 1 capsule by mouth in the evening, then take 1 capsule by mouth at bedtime gabapentin (Neurontin) 300 MG capsule Take 300 mg by mouth in the morning and 300 mg in the evening and 300 mg before bedtime. 08/23/2023 Active Garlic preparation (20 sources) Non-Standardized Food Allergenic Extract Garlic 2 MG capsule Garlic Active Garlic 2 MG caps ule Garlic 0 Active Ginkgo biloba extract (20 sources) Ginkgo Biloba 40 MG tablet Ginko Biloba Active Ginkgo Biloba 40 MG tablet Ginko Biloba 0 Active glucosamine sulfate 1000 mg oral capsule (20 sources) Glucosamine Sulf ate 1000 MG capsule 1 (one) time each day at the same time. Active Grape Seed Extract (20 sources) Grape Seed Extra ct 30 MG capsule Grape Seed Extract Active Grape Seed Extra ct 30 MG capsule Grape Seed Extract 0 Active hydroCHLOROthiazide 25 mg oral tablet (20 sources) Thiazide Diuretic Start: 09-15-2023 End: 09-13-2024 take 1 tablet by mouth in the morning hydroCHLOROthiazide (HYDRODiuril) 25 MG tablet Indications: Primary hypertension (CMS/HCC) Take 1 tablet (25 mg) by mouth in the morning. 90 tablet 1 09/13/2024 Active loratadine 10 mg oral tablet (20 sources) loratadine (Clar itin) 10 MG tablet 1 (one) time each day at the same time. Active losartan potassium 100 mg oral tablet (20 sources) Angiotensin 2 Receptor Steph Start: 12-20-2024 take 1 tablet by mouth once daily losartan (Cozaar) 100 MG tablet Indications: Primary hypertension (CMS/HCC) Take 1 tablet (100 mg) by mouth Daily 12/20/2024 Active Start: 09-13-2024 End: 09-13-2025 take 1 tablet by mouth once daily losartan (Cozaar) 50 MG tablet Indications: Primary hypertension (CMS/HCC) Take 1 tablet (50 mg) by mouth Daily 30 tablet 2 09/13/2024 09/13/2025 Active Start: 09-13-2024 End: 09-13-2024 take 0.5 tablet by mouth once daily losartan (Cozaar) 100 MG tablet Indications: Primary hypertension (CMS/HCC) Take 0.5 tablets (50 mg) by mouth Daily 90 tablet 09/13/2024 09/13/2024 Discontinued Start: 06-27-2024 take 1 tablet by latha th once daily losartan (Cozaar) 100 MG tablet Indications: Primary hypertension (CMS/HCC) Take 1 tablet (100 mg) by mouth Daily 90 tablet 06/27/2024 Active Start: 05-20-2024 End: 09-13-2024 take 1 tablet by mouth once daily losartan (Cozaar) 100 MG tablet Indications: Primary hypertension (CMS/HCC) Take 1 tablet (100 mg) by mouth Daily 90 tablet 08/18/2024 09/13/2024 Discontinued (Dose adjustment) losartan (Cozaar ) 100 MG tablet 1 (one) time each day at the same time. 0 Active nabumetone 500 mg oral tablet (20 sources) Nonsteroidal Anti-inflammatory Drug Start: 12-13-2024 take 1 tablet by mouth twice daily as needed for pain nabumetone (Relafen) 500 MG tablet Indications: Chronic left shoulder pain , Chronic pain of left knee Take 1 tablet (500 mg) by mouth 2 (two) times a day as needed for mild pain 60 tablet 3 12/13/2024 Active Start: 11-14-2024 take 1 tablet by latha th twice daily at bedtime nabumetone (Relafen) 500 MG tablet Indications: Chronic left shoulder pain , Chronic pain of left knee TAKE 1 TABLET BY MOUTH TWICE DAILY (MORNING AND BEFORE BEDTIME) 60 tablet 11/14/2024 Active Start: 07-18-2024 End: 11-14-2024 take 1 tablet by mouth twice daily at bedtime nabumetone (Relafen) 500 MG tablet Indications: Chronic left shoulder pain , Chronic pain of left knee TAKE 1 TABLET BY MOUTH TWICE DAILY (MORNING AND BEFORE BEDTIME) 60 tablet 10/10/2024 11/14/2024 Discontinued Start: 04-13-2024 End: 07-14-2024 take 1 tablet [...] bedtime. 60 tablet 2 10/08/2023 01/06/2024 Active PARoxetine hydrochloride 20 mg oral tablet (20 sources) Serotonin Reuptake Inhibitor Start: 12-20-2024 End: 01-23-2025 take 0.5 tablet by mouth once daily PARoxetine (Paxil) 20 MG tablet Indications: MDD (major depressive disorder), recurrent episode, mild (HCC) (CMS/HCC) Take 0.5 tablets (10 mg) by mouth Daily 30 tablet 5 01/23/2025 Active Start: 04-18-2024 take 1 tablet by latha th once daily PARoxetine (Paxil) 20 MG tablet Indications: Recurrent major depressive disorder, in full remission (CMS/HCC) Take 1 tablet by mouth once daily 90 tablet 1 04/18/2024 Active PARoxetine (Paxi l) 20 MG tablet 1 (one) time each day at the same time. 0 Active simvastatin 20 mg oral tablet (20 sources) HMG-CoA Reductase Inhibitor Start: 12-07-2023 End: 03-13-2025 take 1 tablet by mouth once daily simvastatin (Zocor) 20 MG tablet Indications: Mixed hyperlipidemia (CMS/HCC) Take 1 tablet (20 mg) by mouth 1 (one) time each day at the same time 90 tablet 3 12/13/2024 Active simvastatin (Zoc or) 20 MG tablet 1 (one) time each day at the same time. 0 Active Turmeric Curcumin 500 MG cap jazmín (20 sources) Turmeric Curcumi n 500 MG capsule as directed Orally Active Turmeric Curcumi n 500 MG capsule as directed Orally 0 Active ubidecarenone 100 mg / vitam in e 5 unt oral capsule (20 sources) coenzyme Q-10 10 0 MG capsule as directed Orally Active vitamin e d-alpha 400 unt or al capsule (20 sources) alpha tocopherol (Vitamin E) 400 units capsule 1 capsule 1 (one) time each day at the same time. Active Completed/Discontinued Medications Medication Drug Class(es) Dates Sig (Normalized) Sig (Original) amoxicillin 500 mg oral tablet (8 sources) Penicillin-class Antibacterial Start: 08-16-2024 End: 09-13-2024 take 4 tablets by mouth once at mealtime amoxicillin (Amoxil) 500 MG tablet Indications: History of total right hip replacement 4 tabs PO once 30-60 mins before procedure with food 4 tablet 3 08/16/2024 09/13/2024 Discontinued (Med list cleanup) fluticasone propionate 0.05 mg/actuat metered dose nasal spray (18 sources) Corticosteroid Start: 06-14-2024 End: 06-14-2025 take 1-2 spray(s) nasal route once daily fluticasone (Flonase) 50 MCG/ACT nasal spray Indications: Symptoms of upper respiratory infection (URI) Administer 1-2 sprays into each nostril Daily Shake gently. Before first use, prime pump. After use, clean tip and replace cap. 16 g 2 06/14/2024 09/13/2024 Discontinued (Med list cleanup) oxyCODONE hydrochloride 5 mg oral tablet (20 sources) Opioid Agonist Start: 10-29-2024 End: 02-24-2025 take 1 tablet by mouth once oxyCODONE (Roxicodone) 5 MG immediate release tablet Indications: Chronic left shoulder pain , Chronic pain of left knee Take 1 tablet (5 mg) by mouth every 12 (twelve) hours if needed for moderate pain 60 tablet 12/26/2024 01/25/2025 Discontinued (Reorder) Start: 04-21-2024 End: 10-26-2024 take 1 tablet by mouth once oxyCODONE (Roxicodone) 5 M G immediate release tablet Indications: Chronic left shoulder pain , Chronic pain of left knee Take 1 tablet (5 mg) by mouth every 12 (twelve) hours if needed for moderate pain Do not start before September 25, 2024. 60 tablet 09/25/2024 10/26/2024 Discontinued (Reorder) Start: 10-13-2023 End: 12-12-2023 take 1 tablet by mouth once oxyCODONE (Roxicodone) 5 M G immediate release tablet Indications: Chronic left shoulder pain , Chronic pain of left knee Take 1 tablet (5 mg) by mouth every 12 (twelve) hours if needed for moderate pain 60 tablet 0 11/12/2023 12/12/2023 Active Problems Active Problems Problem Classification Problem Date Documented Da te Episodic/Chronic Chronic obstructive pulmonary disease and bronchiectasis (20 sources) Suspected respiratory disease; Translations: [Chronic obstructive pulmonary disease, unspecified] Onset: 4 07-07-2024 Chronic Diabetes mellitus without complication (5 sources) Type 2 diabetes mellitus without complications; Translations: [TYPE 2 DM WITHOUT COMPLICATIONS] Onset: 2 Chronic Diabetes mellitus without complication (4 sources) Prediabetes; Translations: [Prediabetes] Onset: 5 12-20-2024 Episodic Disorders of lipid metabolism (20 sources) Hyperlipidemia, unspecified; Translations: [Mixed hyperlipidemia] Onset: 3 09-08-2023 Chronic Essential hypertension (20 sources) Essential (primary) hypertension; Translations: [Essential hypertension] Onset: 3 09-08-2023 Chronic Gout and other crystal arthropathies (4 sources) Gout, unspecified; Translations: [GOUT UNSPECIFIED] Onset: 3 Chronic Mood disorders (5 sources) Recurrent major depressive episodes, mild ; Translations: [Major depressive disorder, recurrent, mild] Onset: 5 12-20-2024 Chronic Osteoarthritis (20 sources) Primary osteoarthritis, left shoulder; Translations: [Primary osteoarthritis, right shoulder] Onset: 3 Resolved: 5 04-30-2023 Chronic Osteoporosis (7 sources) Osteoporosis; Translations: [Age-related osteoporosis without current pathological fracture] Onset: 5 06-21-2024 Chronic Other aftercare (4 sources) Encounter for surgical aftercare following surgery on the circulatory system; Translations: [ENC SURG [facility]TRCARE FLW SURG CIRC SYS] Onset: 3 Episodic Other aftercare (4 sources) Long-term current use of drug therapy; Translations: [Other long-term (current) drug therapy] Onset: 5 12-20-2024 Episodic Other connective tissue disease (2 sources) History of total replacement of right hip joint; Translations: [Presence of right artificial hip joint] 08-16-2024 Chronic Other nervous system disorders (20 sources) Chronic pain; Translations: [Other chronic pain] Onset: 3 Resolved: 5 04-30-2023 Chronic Other non-traumatic joint disorders (4 sources) Rotator cuff arthropathy of left shoulder; Translations: [Other specific arthropathies, not elsewhere classified, left shoulder] Onset: 3 12-20-2024 Chronic Other non-traumatic joint disorders (4 sources) Pain in right knee; Translations: [PAIN IN RIGHT KNEE] Onset: 3 Episodic Other non-traumatic joint disorders (20 sources) Pain in left knee; Translations: [Pain in joint, lower leg] Onset: 3 Resolved: 5 11-12-2023 Episodic Other non-traumatic joint disorders (1 source) Pain in right hip; Translations: [PAIN IN RIGHT HIP] Onset: 3 Episodic Other non-traumatic joint disorders (1 source) Pain in right shoulder; Translations: [PAIN IN RIGHT SHOULDER] Onset: 3 Episodic Other non-traumatic joint disorders (1 source) Pain in left shoulder; Translations: [PAIN IN LEFT SHOULDER] Onset: 3 Episodic Other non-traumatic joint disorders (20 sources) Chronic pain of left upper limb; Translations: [Pain in left shoulder] Onset: 3 11-12-2023 Episodic Other nutritional; endocrine; and metabolic disorders (4 sources) Obesity caused by energy imbalance; Translations: [Class 1 obesity due to excess calories with serious comorbidity and body mass index (BMI) of 30.0 to 30.9 in adult] Onset: 5 12-20-2024 Chronic Other nutritional; endocrine; and metabolic disorders (2 sources) Hyperuricemia; Translations: [Hyperuricemia without signs of inflammatory arthritis and tophaceous disease] 09-14-2024 Episodic Phlebitis; thrombophlebitis and thromboembolism (2 sources) Phlebitis and thrombophlebitis of superficial vessels of right lower extremity; Translations: [Phlebitis and thrombophlebitis of superficial vessels of left lower extremity] Onset: 3 Episodic Residual codes; unclassified (1 source) Localized edema; Translations: [LOCALIZED EDEMA] Onset: 3 Episodic Unclassified (5 sources) Chronic pain of left upper limb 07-28-2024 Unclassified (5 sources) Chronic pain of left knee 07-28-2024 Varicose veins of lower extremity (5 sources) Varicose veins of bilateral lower extremities with pain; Translations: [VARICOSE VNS SARITHA LOW EXTREM W/PAIN] Onset: 3 Episodic Past or Other Problems Problem Classification Problem Date Documented Da te Episodic/Chronic Asthma (20 sources) Mild intermittent asthma; Translations: [Mild intermittent asthma, uncomplicated] Resolved: 12-20-2024 07-13-2024 Chronic Other circulatory disease (20 sources) Upper respiratory tract finding; Translations: [Other specified symptoms and signs involving the circulatory and respiratory systems] Onset: 06-14-2024 Resolved: 12-20-2024 06-14-2024 Episodic Other connective tissue disease (20 sources) Nontraumatic complete rupture of rotator cuff of left shoulder; Translations: [Complete rotator cuff tear or rupture of left shoulder, not specified as traumatic] Onset: 09-08-2023 09-08-2023 Episodic Other nervous system disorders (20 sources) Difficulty walking; Translations: [Difficulty in walking, not elsewhere classified] Onset: 04-30-2023 Resolved: 12-20-2024 04-30-2023 Chronic Other non-traumatic joint disorders (20 sources) Hip pain; Translations: [Pain in unspecified hip] Onset: 01-08-2021 Resolved: 12-20-2024 04-30-2023 Episodic Other non-traumatic joint disorders (3 sources) Pain in unspecified hip; Translations: [Pain in joint, pelvic region and thigh] Onset: 04-30-2023 Resolved: 12-20-2024 12-20-2024 Episodic Screening and history of mental health and substance abuse codes (4 sources) Personal history of nicotine dependence; Translations: [PERSONAL HISTORY OF NICOTINE DEPEND] Onset: 07-21-2022 Episodic Results Test Name Value Interpretation Reference Range Facility ALL CBC WITH AUTO DIFFon BASOPHILS ABSOLUTE AUTO 0 [facility] Basophils/100 WBC (Bld) 0.5 % 0.2 - 2.0 % [facility] Eosinophils/100 WBC (Bld) 1.6 % 0.9 - 7.0 % [facility] Erythrocyte distribution width (RBC) [Ratio] 13.2 % 11.0 - 15.0 % [facility] Hematocrit (Bld) [Volume fraction] 35.2 % Low 36.0 - 48.0 % [facility] Hemoglobin (Bld) [Mass/Vol] 11.9 g/dL Low 12.0 - 16.0 g/dL [facility] IMMATURE GRANULOCYTES ABS AUTO 0.03 [facility] Immature granulocytes/100 WBC (Bld) 0.3 % 0.0 - 0.5 % [facility] Interpretation and review of laboratory results Abnormal [facility] LYMPHOCYTES ABSOLUTE AUTO 1.8 [facility] Lymphocytes/100 WBC (Bld) 21 % 20.5 - 60.0 % [facility] MCH (RBC) [Entitic mass] 32.9 pg 26.7 - 34.0 pg [facility] MCHC (RBC) [Mass/Vol] 33.8 g/dL 29.9 - 35.2 g/dL [facility] MCV (RBC) [Entitic vol] 97.2 fL 81.0 - 99.0 fL [facility] MONOCYTES ABSOLUTE AUTO 0.7 [facility] Monocytes/100 WBC (Bld) 7.6 % 1.7 - 12.0 % [facility] NEUTROPHILS ABSOLUTE AUTO 6 [facility] Neutrophils/100 WBC (Bld) 69 % 43.0 - 75.0 % [facility] Platelet mean volume (Bld) [Entitic vol] 10.3 fL 9.5 - 13.5 fL [facility] EO # 0.1 [facility] PLT 254 [facility] RBC 3.62 Low [facility] WBC 8.7 [facility] Hemoglobin (Bld) [Mass/Vol] 11.3 g/dL Low 12.0 - 16.0 g/dL [facility] Interpretation and review of laboratory results Abnormal [facility] VC CONSULT FOLLOWUPon 2022 VC CONSULT FOLLOWUP Patient: BLANCA MOE Exam Date: 03/03/2023 : 1960 Gender:F Ordering : DR MARIA ANTONIA CONRAD M.D. Admission #: [id number] Family : Order #: [id number] CLICK HERE TO VIEW EXAM RADIOLOGY REPORT [...] Conrad MD on 03/03/2023 at 13:[address] [facility] VC EXT VENOUS RT LIMITEDon 0 03-03-2023 VC EXT VENOUS RT LIMITED Patient: BLANCA MOE Exam Date: 03/03/2023 : 1960 Gender:F Ordering : DR MARIA ANTONIA CONRAD M.D. Admission #: [id number] Family : Order #: [id number] CLICK HERE TO VIEW EXAM RADIOLOGY REPORT [...] 03/03/2023 at 13:10 Normal [facility] VC ENDOVENOUS ABL 1ST V RTon 02-25-2023 VC ENDOVENOUS ABL 1ST V RT Patient: BLANCA MOE. Exam Date: 02/25/2023 : 1960 Gender:F Ordering : DR MARIA ANTONIA CONRAD M.D. Admission #: [id number] Family : Order #: [id number] CLICK HERE TO VIEW EXAM RADIOLOGY REPORT [...] the right great saphenous vein. Dictated by: Slime Millan M.D. on 02/25/2023 at 14:59 Approved by: Slime Millan M.D. on 02/25/2023 at 15:[address] [facility] VC CONSULT FOLLOWUPon 2022 VC CONSULT FOLLOWUP Patient: BLANCA MOE Exam Date: 02/09/2023 : 1960 Gender:F Ordering : DR MARIA ANTONIA CONRAD M.D. Admission #: [id number] Family : Order #: [id number] CLICK HERE TO VIEW EXAM RADIOLOGY REPORT [...] the physical exam and consultation Dictated by: Slime Millan M.D. on 02/09/2023 at 11:35 Approved by: Slime Millan M.D. on 02/09/2023 at 11:[address] [facility] VC EXT VENOUS LT LIMITEDon 0 02-09-2023 VC EXT VENOUS LT LIMITED Patient: BLANCA MOE. Exam Date: 02/09/2023 : 1960 Gender:F Ordering : DR MARIA ANTONIA CONRAD M.D. Admission #: [id number] Family : Order #: [id number] CLICK HERE TO VIEW EXAM RADIOLOGY REPORT [...] of left great saphenous vein. Dictated by: Slime Millan M.D. on 02/09/2023 at 11:34 Approved by: Slime Millan M.D. on 02/09/2023 at 11:[address] [facility] VC ENDOVENOUS ABL 1ST V LTon 02-02-2023 VC ENDOVENOUS ABL 1ST V LT Patient: BLANCA MOE Exam Date: 02/02/2023 : 1960 Gender:F Ordering : DR MARIA ANTONIA CONRAD M.D. Admission #: [id number] Family : Order #: [id number] CLICK HERE TO VIEW EXAM RADIOLOGY REPORT [...] the left great saphenous vein. Dictated by: Slime Millan M.D. on 02/02/2023 at 14:15 Approved by: Slime Millan M.D. on 02/02/2023 at 14:[address] [facility] VC COMP CONSULTATIONon 01-08 VC COMP CONSULTATION Patient: BLANCA MOE Exam Date: 01/08/2023 : 1960 Gender:F Ordering : DR MARIA ANTONIA CONRAD M.D. Admission #: [id number] Family : Order #: [id number] CLICK HERE TO VIEW EXAM RADIOLOGY REPORT [...] saphenous, mild to moderate right small saphenous wjzt-pm-yhvwyohw left anterior accessory saphenous vein venous insufficiency [...] Conrad MD on 01/08/2023 at 15:[address] [facility] VC VENOUS REFLUX SARITHA LMTon 0 01-08-2023 VC VENOUS REFLUX SARITHA LMT Patient: BLANCA MOE Exam Date: 01/08/2023 : 1960 Gender:F Ordering : DR MARIA ANTONIA CONRAD M.D. Admission #: [id number] Family : Order #: [id number] CLICK HERE TO VIEW EXAM RADIOLOGY REPORT [...] chronic thrombus visualized Compressibility: Normal Flow: Normal Community Specialist: Dist/med calf 3.7 mm with 2.4s reflux. 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 Left suprapatellar fluid collection likely joint effusion and popliteal lesion likely a cyst Dictated by: Maria Antonia Conrad MD on 01/08/2023 at 13:50 Approved by: Maria Antonia Conrad MD on 01/08/2023 at 13:[address] [facility] XR KNEE SARITHA 4V or >on [...] No acute bone abnormality. Electronically authenticated by: SLIME MILLAN Date: 2022-12-17 16:24 Normal [facility] XR SHOULDER SARITHA [...] narrowing of the glenohumeral joints with likely mubd-up-funm contact. Degenerative osteophyte along the inferior articular margin of the humeral head and glenoid. Suspected narrowing of the acromial-humeral interval. SOFT TISSUES: No visible soft tissue swelling. OTHER: Negative. IMPRESSION: RIGHT CONCLUSION: Marked degenerative joint disease and suspected disruption of the superior rotator cuff. LEFT CONCLUSION: Marked degenerative joint disease, and likely rotator cuff injury or disruption. Electronically authenticated by: SLIME MILLAN Date: 2022-12-17 16:32 Normal [facility] CBC AUTO DIFFon 12-15-2022 BASO # 0.1 103/ul Normal 0.0-0.1 [facility] Comment on above: Performed By: #### C BC ####[facility] [address] [place] [address]Dr. Charlinecassie Napoles Basophils/100 WBC (Bld) 0.8 % Normal 0.2-2.0 [facility] Comment on above: Performed By: #### C BC ####[facility] [address]br[address] [place] [address]Dr. Charlinecassie Napoles EO # 0.2 103/ul Normal 0.0-0.7 [facility] Comment on above: Performed By: #### C BC ####[facility] Sbceweegxv[address] [place] [address]Dr. Charlinecassie Napoles Eosinophils/100 WBC (Bld) 2.3 % Normal 0.9-7.0 [facility] Comment on above: Performed By: #### C BC ####[facility] Qet[address]ogevsg[address] [place] [id number]. Charlinecassie Napoles Erythrocyte distribution width (RBC) [Ratio] 13.2 % Normal 11.0-15.0 [facility] Comment on above: Performed By: #### C BC ####[facility] [address]osmfrxgb[address] [place] [address]Dr. Sarah Napoles Hematocrit (Bld) [Volume fraction] 34.3 % Critically low 36.0-48.0 [facility] Comment on above: Performed By: #### C BC ####[facility] Xwbtbpmumb[address] [place] [address]Dr. Sarah Napoles Hemoglobin (Bld) [Mass/Vol] 11.5 g/dL Critically low 12.0-16.0 [facility] Comment on above: Performed By: #### C BC ####[facility] Knv[address] [place], [place] [address]Dr. Sarah Napoles IG # 0.02 10e3/ul Normal 0.00-0.03 [facility] Comment on above: Performed By: #### C BC ####[facility] Keud[address] [place], [place] [address]Dr. Sarah Napoles IG % 0.2 % Normal 0.0-0.5 [facility] Comment on above: Performed By: #### C BC ####[facility] Tyatbgbjq[address] [place], [place] [address]DrJudy Napoles LYMPH # 1.8 103/ul Normal 1.2-3.8 [facility] Comment on above: Performed By: #### C BC ####[facility] Juq[address] [place], [place] [address]DrJudy Napoles Lymphocytes/100 WBC (Bld) 19.8 % Critically low 20.5-60.0 [facility] Comment on above: Performed By: #### C BC ####[facility] Thvxygilbp[address] [place], [place] [address]DrJudy Napoles MANUAL DIFF REQ NO Normal [facility] Comment on above: Performed By: #### C BC ####[facility] Zg[address]cvsjnu[address] [place] [address]Dr. Sarah Napoles MCH (RBC) [Entitic mass] 32.2 pg Normal 26.7-34.0 [facility] Comment on above: Performed By: #### C BC ####[facility] Xfdjivcquc[address] [place] [id number]. Sarah Dony MCHC (RBC) [Mass/Vol] 33.5 g/dL Normal 29.9-35.2 [facility] Comment on above: Performed By: #### C BC ####[facility] Exposnofcd47[address] [place] [phone] Napoles MCV (RBC) [Entitic vol] 96.1 fL Normal 81.0-99.0 [facility] Comment on above: Performed By: #### C BC ####[facility] Uwtgyyhpmi[address] [place], [place] [address]DrJudy Napoles MONO # 0.8 103/ul Normal 0.3-0.8 [facility] Comment on above: Performed By: #### C BC ####[facility] Htqn[address]udjf[address] [place], [place] [address]Dr. Sarah Napoles Monocytes/100 WBC (Bld) 9.5 % Normal 1.7-12.0 [facility] Comment on above: Performed By: #### C BC ####[facility] Zskybyagti[address] [place], [place] [address]Dr. Sarah Napoles NEUT # 6.0 103/ul Normal 1.4-6.5 [facility] Comment on above: Performed By: #### C BC ####[facility] Meuygmgaik[address] [place], [place] [address]Dr. Sarah Napoles Neutrophils/100 WBC (Bld) 67.4 % Normal 43.0-75.0 [facility] Comment on above: Performed By: #### C BC ####[facility] Ypcglwersa0[address] [place], [place] [address]DrJudy Napoles Platelet mean volume (Bld) [Entitic vol] 10.1 fL Normal 9.5-13.5 [facility] Comment on above: Performed By: #### C BC ####[facility] Pybqlhsxaz[address] [place], [place] [address]DrJudy Napoles PLT 283 103/ul Normal 150-450 [facility] Comment on above: Performed By: #### C BC ####[facility] Ar[address]azwj[address] [place] [id number]. Sarah Napoles RBC 3.57 106/ul Critically low 4.20-5.40 [facility] Comment on above: Performed By: #### C BC ####[facility] Ssaeabulbd[address] [place] [phone]. Sarah Napoles WBC 8.8 103/ul Normal 4.0-11.0 [facility] Comment on above: Performed By: #### C BC ####[facility] Ajgbxknlwu44[address] [place] [id number]. Sarah Napoles GLYCOHEMOGLOBIN A1Con 2022 ADA RECOMMENDATION SEE BELOW Normal [facility] Comment on above: Result Comment: ADA RECOMMENDED LIMIT 4.0 - 6.0 ADA THERAPEUTIC TARGET < 7.0 ACTION SUGGESTED > 7.0 Performed By: #### A 1C ####[facility] [address]wqwdgx[address] [place], [place] [address]Dr. Sarah Napoles Glucose [Mass/Vol] 105 mg/dL Normal [facility] Comment on above: Performed By: #### A 1C ####[facility] [address]xhtuzqoli[address] [place] [address]Dr. Sarah Napoles HbA1c (Bld) [Mass fraction] 5.3 % Normal 4.5-6.2 [facility] Comment on above: Performed By: #### A 1C ####[facility] [address]axc[address] [place] [address]Dr. Sarah Napoles LIPID PROFILEon 12-15-2022 CHOL-HDL RATIO NORM SEE BELOW Normal [facility] Comment on above: Result Comment: 3.3 - 4.4 LOW RISK 4.4 - 7.1 AVERAGE RISK 7.1 - 11.0 MODERATE RISK >11.0 HIGH RISK Performed By: #### L IPID, CMP, URIC ####[facility] D[address]arg[address] [place] [address]Dr. Sarah Napoles Cholesterol [Mass/Vol] 160 mg/dL Normal <=200 [facility] Comment on above: Performed By: #### L IPID, CMP, URIC ####[facility] Hjekcehvid[address] [place] [id number]. Sarah Napoles Cholesterol in HDL [Mass/Vol] 62 mg/dL Critically high 40-60 [facility] Comment on above: Performed By: #### L IPID, CMP, URIC ####[facility] [address]oustvjfg[address] [place] [phone]. Sarah Napoles Cholesterol in LDL [Mass/Vol] 75.2 mg/dL Normal [facility] Comment on above: Performed By: #### L IPID, CMP, URIC ####[facility] [address] [place] [address]Dr. Sarah Napoles Cholesterol.total/Ch olesterol in HDL [Mass ratio] 2.6 {ratio} Normal [facility] Comment on above: Performed By: #### L IPID, CMP, URIC ####[facility] [address] [place] [address]Dr. Sarah Napoles HDL NORMAL > or = 60 mg/dl - LO W CARDIOVASCULAR RISK <40 mg/dl - HIGH CARDIOVASCULAR RISK Normal [facility] Comment on above: Performed By: #### L IPID, CMP, URIC ####[facility] [address] [place] [address]Dr. Sarah Napoles LDL CALC NORMAL SEE BELOW Normal [facility] Comment on above: Result Comment: <100 mg/dl OPTIMAL 100 - 129 mg/dl NEAR OR ABOVE OPTIMAL 130 - 159 mg/dl BORDERLINE HIGH 160 - 189 mg/dl HIGH >190 mg/dl VERY HIGH Performed By: #### L IPID, CMP, URIC ####[facility] [address]zv[address] [place] [phone]. Sarah Napoles Triglyceride [Mass/Vol] 114 mg/dL Normal <=150 [facility] Comment on above: Performed By: #### L IPID, CMP, URIC ####[facility] [address]zkdemg[address] [place] [address]Dr. Charlinecassie Napoles VLDL CALC 22.8 mg/dL Normal [facility] Comment on above: Performed By: #### L IPID, CMP, URIC ####[facility] Y[address]wt[address] [place], [place] [address]ZjDr. Sarah Napoles PROF 14(COMP METB)on 023 Albumin [Mass/Vol] 4.3 g/dL Normal 3.4-5.0 [facility] Comment on above: Performed By: #### L IPID, CMP, URIC #### [facility] [address] [place] [address] [address] Sarah Napoles Albumin/Globulin [Mass ratio] 1.3 {ratio} Normal [facility] Comment on above: Performed By: #### L IPID, CMP, URIC #### [facility] [address] [place] [address] [address] Sarah Napoles ALP [Catalytic activity/Vol] 71 U/L Normal 46-116 [facility] Comment on above: Performed By: #### L IPID, CMP, URIC #### [facility] [address] [address] [address] Sarah Napoles ALT [Catalytic activity/Vol] 25 U/L Normal 14-59 [facility] Comment on above: Performed By: #### L IPID, CMP, URIC #### [facility] [address] [address] [address] Sarah Napoles Anion gap [Moles/Vol] 11.8 mmol/L Normal [facility] Comment on above: Performed By: #### L IPID, CMP, URIC #### [facility] [address] [address] [address] Sarah Napoles AST [Catalytic activity/Vol] 22 U/L Normal 15-37 [facility] Comment on above: Performed By: #### L IPID, CMP, URIC #### [facility] [address] [address] [address] Sarah Napoles Bilirubin [Mass/Vol] 0.3 mg/dL Normal 0.2-1.0 [facility] Comment on above: Performed By: #### L IPID, CMP, URIC #### [facility] [address] [address] [address] Sarah Napoles Calcium [Mass/Vol] 9.8 mg/dL Normal 8.5-10.1 [facility] Comment on above: Performed By: #### L IPID, CMP, URIC #### [facility] [address] [address] [address] Sarah Napoles Chloride [Moles/Vol] 101 mmol/L Normal 98-107 [facility] Comment on above: Performed By: #### L IPID, CMP, URIC #### [facility] [address] [address] [address] Sarah Napoles CO2 [Moles/Vol] 29.5 mmol/L Normal 21.0-32.0 [facility] Comment on above: Performed By: #### L IPID, CMP, URIC #### [facility] [address] [place] [address] Dr. Sarah Napoles Creatinine [Mass/Vol] 0.63 mg/dL Normal 0.55-1.02 [facility] Comment on above: Performed By: #### L IPID, CMP, URIC #### [facility] [address] [place] [address] Dr. Sarah Napoles EGFR-AF NICARAGUAN >60 Normal >=60 [facility] Comment on above: Performed By: #### L IPID, CMP, URIC #### [facility] [address] [place] [address] Dr. Sarah Napoles EGFR-NON AF NICARAGUAN >60 Normal >=60 [facility] Comment on above: Performed By: #### L IPID, CMP, URIC #### [facility] [address] [place] [address] Dr. Sarah Napoles Globulin (S) [Mass/Vol] 3.4 g/dL Normal [facility] Comment on above: Performed By: #### L IPID, CMP, URIC #### [facility] [address] [place] [address] Dr. Sarah Napoles Glucose [Mass/Vol] 92 mg/dL Normal 74-106 [facility] Comment on above: Performed By: #### L IPID, CMP, URIC #### [facility] [address] [place] [address] Dr. Sarah Napoles Potassium [Moles/Vol] 4.3 mmol/L Normal 3.5-5.1 [facility] Comment on above: Performed By: #### L IPID, CMP, URIC #### [facility] [address] [address] [address] Sarah Napoles Protein [Mass/Vol] 7.7 g/dL Normal 6.4-8.2 [facility] Comment on above: Performed By: #### L IPID, CMP, URIC #### [facility] [address] [address] [address] Sarah Napoles Sodium [Moles/Vol] 138 mmol/L Normal 136-145 [facility] Comment on above: Performed By: #### L IPID, CMP, URIC #### [facility] [address] [address] [address] Sarah Napoles Urea nitrogen [Mass/Vol] 25.0 mg/dL Critically high 7.0-18.0 [facility] Comment on above: Performed By: #### L IPID, CMP, URIC #### [facility] [address] [address] [address] Sarah Napoles Urea nitrogen/Creatinine [Mass ratio] 39.7 mg/mg Normal [facility] Comment on above: Performed By: #### L IPID, CMP, URIC #### [facility] [address] [address] [address] Sarah Napoles URIC ACID SERUMon 12-15-2022 Urate [Mass/Vol] 3.7 mg/dL Normal 2.6-6.0 [facility] Comment on above: Performed By: #### L IPID, CMP, URIC ####[facility] [address] [place] [address]. Sarah Napoles CT LUNG CANCER SCREENINGon CT [...] LDCT in 12 months. Electronically authenticated by: SLIME MILLAN Date: 2022-07-21 22:18 Normal [facility] CBC AUTO DIFFon 06-16-2022 BASO # 0.1 103/ul Normal 0.0-0.1 [facility] Comment on above: Performed By: #### C BC ####[facility] [address]caqi[address] [place] [address]DrJudy Napoles Basophils/100 WBC (Bld) 0.9 % Normal 0.2-2.0 [facility] Comment on above: Performed By: #### C BC ####[facility] [address]vx[address]jeot[address] [place] [address]DrJudy Napoles EO # 0.2 103/ul Normal 0.0-0.7 [facility] Comment on above: Performed By: #### C BC ####[facility] Knmhftypor[address] [place] [address]DrJudy Napoles Eosinophils/100 WBC (Bld) 2.5 % Normal 0.9-7.0 [facility] Comment on above: Performed By: #### C BC ####[facility] X[address]qqkxs[address] [place] [address]DrJudy Napoles Erythrocyte distribution width (RBC) [Ratio] 13.4 % Normal 11.0-15.0 [facility] Comment on above: Performed By: #### C BC ####[facility] [address] [place], [place] [address]DrJudy Napoles Hematocrit (Bld) [Volume fraction] 33.3 % Critically low 36.0-48.0 [facility] Comment on above: Performed By: #### C BC ####[facility] [address]qitfpjfng[address] [place] [address]DrJudy Napoles Hemoglobin (Bld) [Mass/Vol] 10.8 g/dL Critically low 12.0-16.0 [facility] Comment on above: Performed By: #### C BC ####[facility] Raf[address]iryapn[address] [place], [place] [address]DrJudy Napoles IG # 0.03 10e3/ul Normal 0.00-0.03 [facility] Comment on above: Performed By: #### C BC ####[facility] U[address]ugfqhm[address] [place], [place] [address]DrJudy Napoles IG % 0.4 % Normal 0.0-0.5 [facility] Comment on above: Performed By: #### C BC ####[facility] [address]xdvmbxi[address] [place], [place] [address]DrJudy Napoles LYMPH # 1.7 103/ul Normal 1.2-3.8 [facility] Comment on above: Performed By: #### C BC ####[facility] Hxgvrzuevs[address] [place], [place] [address]DrJudy Napoles Lymphocytes/100 WBC (Bld) 20.4 % Critically low 20.5-60.0 [facility] Comment on above: Performed By: #### C BC ####[facility] [address]mp[address]lcbr[address] [place], [place] [address]DrJudy Napoles MANUAL DIFF REQ NO Normal [facility] Comment on above: Performed By: #### C BC ####[facility] [address]vweinz[address] [place], [place] [address]DrJudy Napoles MCH (RBC) [Entitic mass] 32.0 pg Normal 26.7-34.0 [facility] Comment on above: Performed By: #### C BC ####[facility] Cmnoiaopof[address] [place], [place] [address]DrJudy Napoles MCHC (RBC) [Mass/Vol] 32.4 g/dL Normal 29.9-35.2 [facility] Comment on above: Performed By: #### C BC ####[facility] Pfxueroudf[address] [place] [address]DrJudy Napoles MCV (RBC) [Entitic vol] 98.8 fL Normal 81.0-99.0 [facility] Comment on above: Performed By: #### C BC ####[facility] Rvgpgyqpgt[address] [place] [address]DrJudy Napoles MONO # 0.9 103/ul Critically high 0.3-0.8 [facility] Comment on above: Performed By: #### C BC ####[facility] Innugeyxxa[address] [place], [place] [address]DrJudy Napoles Monocytes/100 WBC (Bld) 11.0 % Normal 1.7-12.0 [facility] Comment on above: Performed By: #### C BC ####[facility] [address]wbqmvwo[address] [place], [place] [address]DrJudy Napoles NEUT # 5.3 103/ul Normal 1.4-6.5 [facility] Comment on above: Performed By: #### C BC ####[facility] Xwlileblys[address] [place], [place] [address]DrJudy Napoles Neutrophils/100 WBC (Bld) 64.8 % Normal 43.0-75.0 [facility] Comment on above: Performed By: #### C BC ####[facility] Oh[address] [place], [place] [id number] Napoles Platelet mean volume (Bld) [Entitic vol] 10.8 fL Normal 9.5-13.5 [facility] Comment on above: Performed By: #### C BC ####[facility] [address]ucas[address]mo[address] [place], [place] [address]DrJudy Napoles PLT 262 103/ul Normal 150-450 [facility] Comment on above: Performed By: #### C BC ####[facility] [address]pe[address]chlej[address] [place], [place] [id number] Napoles RBC 3.37 106/ul Critically low 4.20-5.40 [facility] Comment on above: Performed By: #### C BC ####[facility] [address]hsccpxo[address] [place] [id number]. Sarah Napoles WBC 8.1 103/ul Normal 4.0-11.0 [facility] Comment on above: Performed By: #### C BC ####[facility] Se[address]burv[address] [place] [id number]. Sarah Napoles GLYCOHEMOGLOBIN A1Con 2021 ADA RECOMMENDATION SEE BELOW Normal [facility] Comment on above: Result Comment: ADA RECOMMENDED LIMIT 4.0 - 6.0 ADA THERAPEUTIC TARGET < 7.0 ACTION SUGGESTED > 7.0 Performed By: #### A 1C ####[facility] [address]jgh[address] [place] [address]Dr. Sarah Napoles Glucose [Mass/Vol] 108 mg/dL Normal [facility] Comment on above: Performed By: #### A 1C ####[facility] [address]tdoekj[address] [place] [address]Dr. Sarah Napoles HbA1c (Bld) [Mass fraction] 5.4 % Normal 4.5-6.2 [facility] Comment on above: Performed By: #### A 1C ####[facility] [address]ikb[address] [place] [id number] Napoles LIPID PROFILEon 06-16-2022 CHOL-HDL RATIO NORM SEE BELOW Normal [facility] Comment on above: Result Comment: 3.3 - 4.4 LOW RISK 4.4 - 7.1 AVERAGE RISK 7.1 - 11.0 MODERATE RISK >11.0 HIGH RISK Performed By: #### C MP, LIPID #### [facility] [address] [address] [address] Sarah Napoles Cholesterol [Mass/Vol] 147 mg/dL Normal <=200 [facility] Comment on above: Performed By: #### C MP, LIPID #### [facility] [address] [address] [address] Sarah Napoles Cholesterol in HDL [Mass/Vol] 58 mg/dL Normal 40-60 [facility] Comment on above: Performed By: #### C MP, LIPID #### [facility] [address] [address] [address] Sarah Napoles Cholesterol in LDL [Mass/Vol] 68.0 mg/dL Normal [facility] Comment on above: Performed By: #### C MP, LIPID #### [facility] [address] [place] [address] Dr. Sarah Napoles Cholesterol.total/Ch olesterol in HDL [Mass ratio] 2.5 {ratio} Normal [facility] Comment on above: Performed By: #### C MP, LIPID #### [facility] [address] [address] [address] Sarah Napoles HDL NORMAL > or = 60 mg/dl - LO W CARDIOVASCULAR RISK <40 mg/dl - HIGH CARDIOVASCULAR RISK Normal [facility] Comment on above: Performed By: #### C MP, LIPID #### [facility] [address] [place] [address] Dr. Sarah Napoles LDL CALC NORMAL SEE BELOW Normal [facility] Comment on above: Result Comment: <100 mg/dl OPTIMAL 100 - 129 mg/dl NEAR OR ABOVE OPTIMAL 130 - 159 mg/dl BORDERLINE HIGH 160 - 189 mg/dl HIGH >190 mg/dl VERY HIGH Performed By: #### C MP, LIPID #### [facility] [address] [place] [address] Dr. Sarah Napoles Triglyceride [Mass/Vol] 105 mg/dL Normal <=150 [facility] Comment on above: Performed By: #### C MP, LIPID #### [facility] [address] [place] [address] Dr. Sarah Napoles VLDL CALC 21.0 mg/dL Normal [facility] Comment on above: Performed By: #### C MP, LIPID #### [facility] [address] [place] [address] Dr. Sarah Napoles PROF 14(COMP METB)on 022 Albumin [Mass/Vol] 4.0 g/dL Normal 3.4-5.0 [facility] Comment on above: Performed By: #### C MP, LIPID #### [facility] [address] [address] [address] Sarah Napoles Albumin/Globulin [Mass ratio] 1.2 {ratio} Normal [facility] Comment on above: Performed By: #### C MP, LIPID #### [facility] [address] [address] [address] Sarah Napoles ALP [Catalytic activity/Vol] 53 U/L Normal 46-116 [facility] Comment on above: Performed By: #### C MP, LIPID #### [facility] [address] [place] [address] Dr. Sarah Napoles ALT [Catalytic activity/Vol] 32 U/L Normal 14-59 [facility] Comment on above: Performed By: #### C MP, LIPID #### [facility] [address] [place] [address] Dr. Sarah Napoles Anion gap [Moles/Vol] 8.0 mmol/L Normal [facility] Comment on above: Performed By: #### C MP, LIPID #### [facility] [address] [place] [address] Dr. Sarah Napoles AST [Catalytic activity/Vol] 23 U/L Normal 15-37 [facility] Comment on above: Performed By: #### C MP, LIPID #### [facility] [address] [place] [address] Dr. Sarah Napoles Bilirubin [Mass/Vol] 0.4 mg/dL Normal 0.2-1.0 [facility] Comment on above: Performed By: #### C MP, LIPID #### [facility] [address] [place] [address] Dr. Sarah Napoles Calcium [Mass/Vol] 9.4 mg/dL Normal 8.5-10.1 [facility] Comment on above: Performed By: #### C MP, LIPID #### [facility] [address] [place] [address] Dr. Sarah Napoles Chloride [Moles/Vol] 100 mmol/L Normal 98-107 [facility] Comment on above: Performed By: #### C MP, LIPID #### [facility] [address] [place] [address] Dr. Sarah Napoles CO2 [Moles/Vol] 30.8 mmol/L Normal 21.0-32.0 [facility] Comment on above: Performed By: #### C MP, LIPID #### [facility] [address] [place] [address] Dr. Sarah Napoles Creatinine [Mass/Vol] 0.68 mg/dL Normal 0.55-1.02 [facility] Comment on above: Performed By: #### C MP, LIPID #### [facility] [address] [place] [address] Dr. Sarah Napoles EGFR-AF NICARAGUAN >60 Normal >=60 [facility] Comment on above: Performed By: #### C MP, LIPID #### [facility] [address] [place] [address] Dr. Sarah Napoles EGFR-NON AF NICARAGUAN >60 Normal >=60 [facility] Comment on above: Performed By: #### C MP, LIPID #### [facility] [address] [place] [address] Dr. Sarah Napoles Globulin (S) [Mass/Vol] 3.3 g/dL Normal [facility] Comment on above: Performed By: #### C MP, LIPID #### [facility] [address] [place] [address] Dr. Sarah Napoles Glucose [Mass/Vol] 90 mg/dL Normal 74-106 The [facility] Comment on above: Performed By: #### C MP, LIPID #### [facility] [address] [place] [address] Dr. Sarah Napoles Potassium [Moles/Vol] 3.8 mmol/L Normal 3.5-5.1 [facility] Comment on above: Performed By: #### C MP, LIPID #### [facility] [address] [place] [address] Dr. Sarah Napoles Protein [Mass/Vol] 7.3 g/dL Normal 6.4-8.2 The [facility] Comment on above: Performed By: #### C MP, LIPID #### [facility] [address] [place] [address] Dr. Sarah Napoles Sodium [Moles/Vol] 135 mmol/L Critically low 136-145 [facility] Comment on above: Performed By: #### C MP, LIPID #### [facility] [address] [address] [address] Sarah Napoles Urea nitrogen [Mass/Vol] 13.0 mg/dL Normal 7.0-18.0 [facility] Comment on above: Performed By: #### C MP, LIPID #### [facility] [address] [address] [address] Sarah Napoles Urea nitrogen/Creatinine [Mass ratio] 19.1 mg/mg Normal [facility] Comment on above: Performed By: #### C MP, LIPID #### [facility] [address] [address] [address] Sarah Napoles POC GLUCOSE LABon 01-03-2021 Glucose [Mass/Vol] 119 mg/dL High 70-100 [facility] Comment on above: Performed By: #### 8 [id number] #### [facility] [address] [place] [address], [place] Glucose [Mass/Vol] 145 mg/dL High 70-100 [facility] Comment on above: Performed By: #### 8 [id number] #### [facility] [address] [place] [address], [place] Glucose [Mass/Vol] 93 mg/dL Normal 70-100 [facility] Comment on above: Performed By: #### 8 [id number] #### [facility] [address] [place] [address], [place] Glucose [Mass/Vol] 99 mg/dL Normal 70-100 [facility] Comment on above: Performed By: #### 8 [id number] #### [facility] [address] [place] [address], [place] POC GLUCOSE LABon 01-02-2021 Glucose [Mass/Vol] 101 mg/dL High 70-100 [facility] Comment on above: Performed By: #### 8 [id number] #### [facility] [address] [place] [address], [place] Glucose [Mass/Vol] 127 mg/dL High 70-100 [facility] Comment on above: Performed By: #### 8 [id number] #### [facility] [address] [place] [address], [place] Glucose [Mass/Vol] 110 mg/dL High 70-100 [facility] Comment on above: Performed By: #### 8 [id number] #### [facility] [address] [place] [address], [place] BASIC METABOLIC PANELon 03-3 -2020 Calcium [Mass/Vol] 8.4 mg/dL Low 8.6-10.3 [facility] Comment on above: Order Comment: No: D o not add to previous draw Performed By: #### 8 [id number] #### [facility] [address] [place] [address], [place] Chloride [Moles/Vol] 106 mmol/L Normal 98-107 The [facility] Comment on above: Order Comment: No: D o not add to previous draw Performed By: #### 8 [id number] #### [facility] [address] [place] [address], [place] CO2 [Moles/Vol] 29 mmol/L Normal 21-31 The [facility] Comment on above: Order Comment: No: D o not add to previous draw Performed By: #### 8 [id number] #### [facility] [address] [place] [address], [place] Creatinine [Mass/Vol] 0.50 mg/dL Low 0.60-1.20 [facility] Comment on above: Order Comment: No: D o not add to previous draw Performed By: #### 8 [id number] #### [facility] [address] [place] [address], [place] GFR/1.73 sq M.predicted among blacks MDRD (S/P/Bld) [Vol rate/Area] mL/min/{1.73_m2} Normal >60 The [facility] Comment on above: Order Comment: No: D o not add to previous draw Performed By: #### 8 [id number] #### [facility] [address] [place] [address], [place] GFR/1.73 sq M.predicted among non-blacks MDRD (S/P/Bld) [Vol rate/Area] mL/min/{1.73_m2} Normal >60 [facility] Comment on above: Order Comment: No: D o not add to previous draw Performed By: #### 8 [id number] #### [facility] [address] [place] [address], [place] Glucose [Mass/Vol] 88 mg/dL Normal 70-100 [facility] Comment on above: Order Comment: No: D o not add to previous draw Performed By: #### 8 [id number] #### [facility] [address] [place] [address], [place] Potassium [Moles/Vol] 3.3 mmol/L Low 3.5-5.1 [facility] Comment on above: Order Comment: No: D o not add to previous draw Performed By: #### 8 [id number] #### [facility] [address] [place] [address], [place] Sodium [Moles/Vol] 141 mmol/L Normal 136-145 [facility] Comment on above: Order Comment: No: D o not add to previous draw Performed By: #### 8 [id number] #### [facility] [address] [place] [address], [place] Urea nitrogen [Mass/Vol] 10 mg/dL Normal 7-25 [facility] Comment on above: Order Comment: No: D o not add to previous draw Performed By: #### 8 [id number] #### [facility] [address] [facility] [place] [address], [facility] CBC W/DIFFon 01-01-2021 ABS IMM GRANS 0.1 10*3/uL Normal 0.0-0.2 The [facility] Comment on above: Order Comment: No: D o not add to previous draw Performed By: #### 5 0103 #### [facility] [address] [place] [address], [facility] ABS NEUTROPHILS 10.1 10*3/uL High 1.6-7.6 The [facility] Comment on above: Order Comment: No: D o not add to previous draw Performed By: #### 5 0103 #### [facility] [address] [facility] [place] [address], [facility] Basophils (Bld) [#/Vol] 0.0 10*3/uL Normal 0.0-0.2 The [facility] Comment on above: Order Comment: No: D o not add to previous draw Performed By: #### 5 0103 #### [facility] [address] [facility] [place] [address], [facility] Basophils/100 WBC (Bld) 0.2 % Normal 0.0-1.0 The [facility] Comment on above: Order Comment: No: D o not add to previous draw Performed By: #### 5 0103 #### [facility] [address] [facility] [place] [address], [facility] Eosinophils (Bld) [#/Vol] 0.0 10*3/uL Normal 0.0-0.5 The [facility] Comment on above: Order Comment: No: D o not add to previous draw Performed By: #### 5 0103 #### [facility] [address] [place] [address], [facility] Eosinophils/100 WBC (Bld) 0.1 % Normal 0.0-6.0 The [facility] Comment on above: Order Comment: No: D o not add to previous draw Performed By: #### 5 0103 #### [facility] [address] [place] [address], [facility] Erythrocyte distribution width (RBC) [Ratio] 13.1 % Normal 11.5-15.0 The [facility] Comment on above: Order Comment: No: D o not add to previous draw Performed By: #### 5 0103 #### [facility] [address] [place] [id number], [facility] Hematocrit (Bld) [Volume fraction] 27.7 % Low 36.0-45.0 The [facility] Comment on above: Order Comment: No: D o not add to previous draw Performed By: #### 5 0103 #### [facility] [address] [place] [address], [facility] Hemoglobin (Bld) [Mass/Vol] 9.2 g/dL Low 12.0-15.0 The [facility] Comment on above: Order Comment: No: D o not add to previous draw Result Comment: RESU LTS CHECKED Performed By: #### 5 0103 #### [facility] [address] [facility] [place] [address], [facility] IMMATURE GRANS 0.4 % Normal 0.0-1.0 The [facility] Comment on above: Order Comment: No: D o not add to previous draw Performed By: #### 5 0103 #### [facility] [address] [facility] [place] [address], [facility] Lymphocytes (Bld) [#/Vol] 1.8 10*3/uL Normal 1.2-4.0 The [facility] Comment on above: Order Comment: No: D o not add to previous draw Performed By: #### 5 0103 #### [facility] [address] [place] [address], [facility] Lymphocytes/100 WBC (Bld) 13.6 % Low 20.0-45.0 The [facility] Comment on above: Order Comment: No: D o not add to previous draw Performed By: #### 5 0103 #### [facility] [address] [place] [address], [facility] MCH (RBC) [Entitic mass] 32.4 pg Normal 27.0-33.0 The [facility] Comment on above: Order Comment: No: D o not add to previous draw Performed By: #### 5 0103 #### [facility] [address] [place] [address], [facility] MCHC (RBC) [Mass/Vol] 33.2 g/dL Normal 32.0-35.0 The [facility] Comment on above: Order Comment: No: D o not add to previous draw Performed By: #### 5 0103 #### [facility] [address] [place] [address], [facility] MCV (RBC) [Entitic vol] 97.5 fL Normal 82.0-98.0 The [facility] Comment on above: Order Comment: No: D o not add to previous draw Performed By: #### 5 0103 #### [facility] [address] [facility] [place] [address], [facility] Monocytes (Bld) [#/Vol] 1.4 10*3/uL High 0.1-1.0 The [facility] Comment on above: Order Comment: No: D o not add to previous draw Performed By: #### 5 0103 #### [facility] [address] [facility] [place] [address], [facility] MONOS 10.1 % Normal 5.0-12.0 The [facility] Comment on above: Order Comment: No: D o not add to previous draw Performed By: #### 5 0103 #### [facility] [address] [facility] [place] [address], [facility] Neutrophils/100 WBC (Bld) 75.6 % High 40.0-72.0 The [facility] Comment on above: Order Comment: No: D o not add to previous draw Performed By: #### 5 0103 #### [facility] [address] [place] [address], [facility] Nucleated RBC/100 WBC (Bld) [Ratio] 0 % Normal 0-0 The [facility] Comment on above: Order Comment: No: D o not add to previous draw Performed By: #### 5 0103 #### [facility] [address] [place] [address], [place] PLAT CNT 237 10*3/uL Normal 150-400 The [facility] Comment on above: Order Comment: No: D o not add to previous draw Performed By: #### 5 0103 #### [facility] [address] [place] [id number], [facility] RBC (Bld) [#/Vol] 2.84 10*6/uL Low 3.80-5.00 [facility] Comment on above: Order Comment: No: D o not add to previous draw Performed By: #### 5 0103 #### [facility] [address] [place] [address], [facility] WBC (Bld) [#/Vol] 13.43 10*3/uL High 4.00-10.60 The [facility] Comment on above: Order Comment: No: D o not add to previous draw Performed By: #### 5 0103 #### [facility] [address] [place] [address], [facility] POC GLUCOSE LABon 01-01-2021 Glucose [Mass/Vol] 115 mg/dL High 70-100 The [facility] Comment on above: Performed By: #### 8 [id number] #### [facility] [address] [place] [address], [facility] Glucose [Mass/Vol] 110 mg/dL High 70-100 The [facility] Comment on above: Performed By: #### 8 [id number] #### [facility] [address] [place] [address], [facility] Glucose [Mass/Vol] 111 mg/dL High 70-100 [facility] Comment on above: Performed By: #### 8 5499 #### [facility] [address] [place] [address], [facility] Glucose [Mass/Vol] 102 mg/dL High 70-100 [facility] Comment on above: Performed By: #### 8 [id number] #### [facility] [address] [facility] [place] [address], [facility] HIP RIGHT 1 OR 2 VWS WITH PE LVISon 12-31-2020 HIP RIGHT 1 OR 2 VWS WITH PELVIS [facility] Department of Radiology [address] [place] [address] Patient Name: BLANCA MOE : 1960 [...] please refer to the operative note. Approved by:Yvrose Borrero12/31/2020 1:48 PM. I, Panda Smith,have reviewed the images and reports Electronically signed: Panda mSith. Transcribed by: [id number], User Resident: YVROSE RODRIGUES Electronically Signed by: PANDA SMITH @ 12/31/2020 04:29 PM I personally read this/these film(s) with this resident Normal The [facility] Comment on above: Order Comment: RIGHT ANTERIOR TOTAL HIP REPLACEMENT Operative Reporton Operative Report MR#: [id number] I [facility] Pt. Name: Blanca Moe Room #: [id number] Discharge Date: Birthdate: 1960 OPERATIVE REPORT DATE [...] right hip pain despite nonoperative measures. Has [id number] osteoarthritis of the right hip with subchondral [...] Roberts M.D. Date Trans: 12/31/2020 09:28 P/mmo [id number] Normal The [facility] POC GLUCOSE LABon 12-31-2020 Glucose [Mass/Vol] 167 mg/dL High 70-100 [facility] Comment on above: Performed By: #### 8 [id number] #### [facility] [address] [facility] [place] [address], [facility] Glucose [Mass/Vol] 162 mg/dL High 70-100 The [facility] Comment on above: Performed By: #### 8 [id number] #### [facility] [address] [facility] [place] [address], [place] Glucose [Mass/Vol] 168 mg/dL High 70-100 The [facility] Comment on above: Performed By: #### 8 [id number] #### [facility] [address] [facility] [place] [address], [place] Glucose [Mass/Vol] 104 mg/dL High 70-100 [facility] Comment on above: Performed By: #### 8 [id number] #### [facility] [address] [facility] [place] [address], [place] PORTABLE HIP RIGHT 1 OR 2 VW S WITH PELVISon 12-31-2020 PORTABLE HIP RIGHT 1 OR 2 VWS WITH PELVIS [facility] Department of Radiology [address] [place] [phone] Patient Name: BLANCA MOE : 1960 Sex: [...] fracture Electronically signed: Panda Smith. Transcribed by: [email or web address], User Resident: Electronically Signed by: PANDA SMITH @ 12/31/2020 01:05 PM Normal The [facility] Comment on above: Order Comment: Hardw are Evaluation, PACU *MRSA/MSSA DNA NASALon 12-10 *MRSA/MSSA DNA NASAL Clinical Report: (D ) Specimen: NASAL SWAB Collected: 12/10/2020 13:55 Status: Final Last Updated: 12/11/2020 15:48 MSSA DNA (Final) Negative MRSA DNA (Final) Negative Normal [facility] Comment on above: Performed By: #### 8 [id number] #### [facility] [address] [facility]. [address] CBC W/DIFFon 12-10-2020 ABS IMM GRANS 0.0 10*3/uL Normal 0.0-0.2 The [facility] Comment on above: Performed By: #### 8 [id number] #### [facility] [address] [facility] [place] [address], [facility] ABS NEUTROPHILS 7.7 10*3/uL High 1.6-7.6 The [facility] Comment on above: Performed By: #### 8 [id number] #### [facility] [address] [place] [address], [facility] Basophils (Bld) [#/Vol] 0.1 10*3/uL Normal 0.0-0.2 The [facility] Comment on above: Performed By: #### 8 [id number] #### [facility] [address] [facility] [place] [address], [facility] Basophils/100 WBC (Bld) 0.6 % Normal 0.0-1.0 The [facility] Comment on above: Performed By: #### 8 [id number] #### [facility] [address] [facility] [place] [address], [facility] Eosinophils (Bld) [#/Vol] 0.1 10*3/uL Normal 0.0-0.5 The [facility] Comment on above: Performed By: #### 8 [id number] #### [facility] [address] [place] [address], [facility] Eosinophils/100 WBC (Bld) 1.0 % Normal 0.0-6.0 The [facility] Comment on above: Performed By: #### 8 [id number] #### [facility] [address] [place] [address], [facility] Erythrocyte distribution width (RBC) [Ratio] 13.0 % Normal 11.5-15.0 The [facility] Comment on above: Performed By: #### 8 [id number] #### [facility] [address] [facility] [place] [address], [facility] Hematocrit (Bld) [Volume fraction] 36.2 % Normal 36.0-45.0 The [facility] Comment on above: Performed By: #### 8 [id number] #### [facility] [address] [facility] [place] [address], [facility] Hemoglobin (Bld) [Mass/Vol] 11.9 g/dL Low 12.0-15.0 The [facility] Comment on above: Performed By: #### 8 [id number] #### [facility] [address] [facility] [place] [address], [facility] IMMATURE GRANS 0.3 % Normal 0.0-1.0 The [facility] Comment on above: Performed By: #### 8 [id number] #### [facility] [address] [facility] [place] [address], [facility] Lymphocytes (Bld) [#/Vol] 1.5 10*3/uL Normal 1.2-4.0 The [facility] Comment on above: Performed By: #### 8 [id number] #### [facility] [address] [facility] [place] [address], [facility] Lymphocytes/100 WBC (Bld) 15.1 % Low 20.0-45.0 The [facility] Comment on above: Performed By: #### 8 [id number] #### [facility] [address] [facility] [place] [address], [facility] MCH (RBC) [Entitic mass] 31.9 pg Normal 27.0-33.0 The [facility] Comment on above: Performed By: #### 8 [id number] #### [facility] [address] [facility] [place] [address], [facility] MCHC (RBC) [Mass/Vol] 32.9 g/dL Normal 32.0-35.0 The [facility] Comment on above: Performed By: #### 8 [id number] #### [facility] [address] [place] [address], [facility] MCV (RBC) [Entitic vol] 97.1 fL Normal 82.0-98.0 The [facility] Comment on above: Performed By: #### 8 [id number] #### [facility] [address] [place] [address], [facility] Monocytes (Bld) [#/Vol] 0.7 10*3/uL Normal 0.1-1.0 The [facility] Comment on above: Performed By: #### 8 [id number] #### [facility] [address] [facility] [place] [address], [facility] MONOS 7.3 % Normal 5.0-12.0 The [facility] Comment on above: Performed By: #### 8 [id number] #### [facility] [address] [facility] [place] [address], [facility] Neutrophils/100 WBC (Bld) 75.7 % High 40.0-72.0 The [facility] Comment on above: Performed By: #### 8 [id number] #### [facility] [address] [facility] [place] [address], [facility] Nucleated RBC/100 WBC (Bld) [Ratio] 0 % Normal 0-0 The [facility] Comment on above: Performed By: #### 8 [id number] #### [facility] [address] [facility] [place] [address], [facility] PLAT CNT 290 10*3/uL Normal 150-400 The [facility] Comment on above: Performed By: #### 8 [id number] #### [facility] [address] [facility] [place] [address], [facility] RBC (Bld) [#/Vol] 3.73 10*6/uL Low 3.80-5.00 [facility] Comment on above: Performed By: #### 8 [id number] #### [facility] [address] WBC (Bld) [#/Vol] 10.11 10*3/uL Normal 4.00-10.60 The [facility] Comment on above: Performed By: #### 8 [id number] #### [facility] [address] [facility] [place] [address], [facility] HEMOGLOBIN A1Con 12-10-2020 Glucose [Moles/Vol] 108 mmol/L Normal [facility] Comment on above: Performed By: #### 3 1791 #### [facility] [address] [place] [address], [facility] HbA1c (Bld) [Mass fraction] 5.4 % Normal 4.0-6.0 The [facility] Comment on above: Performed By: #### 3 1791 #### [facility] [address] [place], [place] [id number] [place], [place] [id number] HIP RIGHT 1 OR 2 VWS WITH PE LVISon 11-22-2020 HIP RIGHT 1 OR 2 VWS WITH PELVIS [facility] Department of Radiology [address] [place] [phone] Patient Name: BLANCA MOE : 1960 [...] exam. Electronically signed: Rodney Sutherland. Transcribed by: [email or web address], User Resident: Electronically Signed by: RODNEY SUTHERLAND @ 11/22/2020 03:43 PM Normal [facility] Comment on above: Order Comment: Evalu ate Vital Signs Date Time Vital Sign Value Performing Clinician Alex zamarripa 09-13-2024 14:50-0500 Body height 162.6 cm Maisha Wyman RETAIL ACCOUNT SPECIALIST Work Phone: [facility] 09-13-2024 14:50-0500 Body mass index (BMI) [Ratio] 31.24 kg/m2 Maisha Soodk RETAIL ACCOUNT SPECIALIST Work Phone: [facility] 09-13-2024 14:50-0500 Body temperature 97.2 [degF] Maisha Pughtrick RETAIL ACCOUNT SPECIALIST Work Phone: [facility] 09-13-2024 14:50-0500 Body weight 82.56 kg Maisha Soodk RETAIL ACCOUNT SPECIALIST Work Phone: [facility] 09-13-2024 14:50-0500 Diastolic blood pressure 82 mm[Hg] Maisha Soodk RETAIL ACCOUNT SPECIALIST Work Phone: [facility] 09-13-2024 14:50-0500 Heart rate 62 /min Maisha Wyman RETAIL ACCOUNT SPECIALIST Work Phone: [facility] 09-13-2024 14:50-0500 Respiratory rate 16 /min Maisha Wyman RETAIL ACCOUNT SPECIALIST Work Phone: [facility] 09-13-2024 14:50-0500 SaO2% (BldA) [Mass fraction] 99 % Maisha Wyman RETAIL ACCOUNT SPECIALIST Work Phone: [facility] 09-13-2024 14:50-0500 Systolic blood pressure 148 mm[Hg] Maisha Wyman RETAIL ACCOUNT SPECIALIST Work Phone: [facility] 08-16-2024 13:29-0500 Body height 160 cm Duncan Bradshaw PA Work Phone: [facility] 08-16-2024 13:29-0500 Body mass index (BMI) [Ratio] 31.89 kg/m2 Duncan Bradshaw PA Work Phone: [facility] 08-16-2024 13:29-0500 Body weight 81.65 kg Duncan Bradshaw PA Work Phone: [facility] 06-14-2024 14:47-0400 Body height 162.6 cm Maisha Wyman RETAIL ACCOUNT SPECIALIST Work Phone: [facility] 06-14-2024 14:47-0400 Body mass index (BMI) [Ratio] 30.21 kg/m2 Maisha Wyman RETAIL ACCOUNT SPECIALIST Work Phone: [facility] 06-14-2024 14:47-0400 Body temperature 97.7 [degF] Maisha Wyman RETAIL ACCOUNT SPECIALIST Work Phone: [facility] 06-14-2024 14:47-0400 Body weight 79.83 kg Maisha Wyman RETAIL ACCOUNT SPECIALIST Work Phone: [facility] 06-14-2024 14:47-0400 Diastolic blood pressure 64 mm[Hg] Maisha Wyman RETAIL ACCOUNT SPECIALIST Work Phone: [facility] 06-14-2024 14:47-0400 Heart rate 65 /min Maisha Wyman RETAIL ACCOUNT SPECIALIST Work Phone: [facility] Comment on above: 195% O2 06-14-2024 14:47-0400 Systolic blood pressure 126 mm[Hg] Maisha Wyman RETAIL ACCOUNT SPECIALIST Work Phone: [facility] Encounters Encounter Date Encounter Type Care Provider Facility Start: 01-25-2025 End: 01-25-2025 Refill Jose Guadalupe Mejia MD Work Phone: [facility] Comment on above: Chronic left shoulde r pain; Chronic pain of left knee Start: 01-24-2025 End: 01-24-2025 Clinisync Result Encounter Jose Guadalupe Mejia MD Work Phone: [facility] External Department Unsolicited Start: 01-24-2025 End: 01-24-2025 Clinisync Result Encounter Jose Guadalupe Mejia MD Work Phone: [facility] External Department Unsolicited Start: 01-23-2025 End: 01-23-2025 Refill Jose Guadalupe Mejia MD Work Phone: [facility] Comment on above: MDD (major depressiv e disorder), recurrent episode, mild (HCC) (CMS/HCC) Start: 12-26-2024 End: 12-26-2024 Refill Jose Guadalupe Mejia MD Work Phone: [facility] Comment on above: Chronic left shoulde r pain; Chronic pain of left knee Start: 12-20-2024 End: 12-20-2024 ambulatory JOSE GUADALUPE MEJIA Not Available Start: 11-13-2024 End: 11-14-2024 Refill Maisha Wyman RETAIL ACCOUNT SPECIALIST Work Phone: [facility] Comment on above: Chronic left shoulde r pain; Chronic pain of left knee Start: 11-08-2024 End: 11-08-2024 Refill Afsaneh Morrow MA [facility] Comment on above: Chronic left shoulde r pain; Chronic pain of left knee Start: 10-26-2024 End: 10-26-2024 Refill Afsaneh Morrow MA [facility] Comment on above: Chronic left shoulde r pain; Chronic pain of left knee Start: 10-10-2024 End: 10-10-2024 Refill Maisha Owenzpatrick RETAIL ACCOUNT SPECIALIST Work Phone: [facility] Comment on above: Chronic left shoulde r pain; Chronic pain of left knee; Suspected chronic obstructive pulmonary disease based on initial evaluation (CMS/HCC); Hyperuricemia; Primary hypertension (CMS/HCC) Start: 09-14-2024 End: 09-14-2024 Refill Afsaneh Morrow MA [facility] Comment on above: Primary hypertension (CMS/HCC); Hyperuricemia; Chronic left shoulder pain; Chronic pain of left knee; Mixed hyperlipidemia (CMS/HCC) Start: 09-13-2024 End: 09-13-2024 Office outpatient visit 15 minutes Maisha Wyman RETAIL ACCOUNT SPECIALIST Work Phone: [facility] Comment on above: Mixed hyperlipidemia (CMS/HCC) (Primary Dx); Suspected chronic obstructive pulmonary disease based on initial evaluation (CMS/HCC); Mild intermittent asthma without complication (CMS/HCC); Primary hypertension (CMS/HCC); Osteoporosis without current pathological fracture, unspecified osteoporosis type (CMS/HCC) Start: 09-13-2024 End: 09-13-2024 ambulatory MAISHA WYMAN Not Available Start: 09-13-2024 End: 09-13-2024 Bamboo flowsheet Maisha Wyman RETAIL ACCOUNT SPECIALIST Work Phone: [facility] Start: 09-13-2024 End: 09-13-2024 Bamboo flowsheet Maisha Wyman RETAIL ACCOUNT SPECIALIST Work Phone: [facility] Start: 08-24-2024 End: 08-24-2024 Refill Afsaneh Morrow MA [facility] Comment on above: Chronic left shoulde r pain; Chronic pain of left knee Start: 08-18-2024 End: 08-18-2024 Refill Afsaneh Morrow MA [facility] Comment on above: Primary hypertension ([facility]) Start: 08-16-2024 End: 08-16-2024 Office outpatient visit 25 minutes Duncan Bradshaw PA Work Phone: [facility] Comment on above: Acute pain of left k nee (Primary Dx); Arthritis of left knee; History of total right hip replacement Start: 08-16-2024 End: 08-17-2024 Refill Afsaneh Morrow MA [facility] Comment on above: Mixed hyperlipidemia ([facility]) Start: 08-08-2024 End: 08-08-2024 Orders Only Maisha Wyman RETAIL ACCOUNT SPECIALIST Work Phone: [facility] Comment on above: Osteoarthritis of [place] th knees, unspecified osteoarthritis type (Primary Dx) Start: 07-26-2024 End: 07-28-2024 Refill Afsaneh Morrow MA [facility] Comment on above: Chronic left shoulde r pain; Chronic pain of left knee Start: 07-14-2024 End: 07-18-2024 Refill Maisha Wyman RETAIL ACCOUNT SPECIALIST Work Phone: [facility] Comment on above: Chronic left shoulde r pain; Chronic pain of left knee Start: 07-13-2024 End: 07-13-2024 Orders Only Maisha Wyman RETAIL ACCOUNT SPECIALIST Work Phone: [facility] Comment on above: Suspected chronic ob structive pulmonary disease based on initial evaluation ([facility]) (Primary Dx); Mild intermittent asthma without complication ([facility]) Start: 07-12-2024 End: 07-12-2024 Clinisync Result Encounter Maihsa Wyman RETAIL ACCOUNT SPECIALIST Work Phone: [facility] Department Unsolicited Start: 07-12-2024 End: 07-12-2024 Clinisync Result Encounter Maisha Wyman RETAIL ACCOUNT SPECIALIST Work Phone: [facility] Unsolicited Start: 07-07-2024 End: 07-07-2024 Orders Only Maisha Wyman RETAIL ACCOUNT SPECIALIST Work Phone: [facility] Comment on above: Suspected chronic ob structive pulmonary disease based on initial evaluation (CMS/HCC) (Primary Dx) Start: 06-27-2024 End: 06-27-2024 Orders Only Maisha Wyman RETAIL ACCOUNT SPECIALIST Work Phone: [facility] Comment on above: Primary hypertension (CMS/HCC); Chronic left shoulder pain; Chronic pain of left knee Start: 06-27-2024 End: 06-27-2024 ambulatory Chikis May MD Facility:[facility] Start: 06-21-2024 End: 06-21-2024 Refill Tara Correa MA [facility] Comment on above: Osteoporosis without current pathological fracture, unspecified osteoporosis type (CMS/HCC) Start: 06-14-2024 End: 06-14-2024 Office outpatient visit 25 minutes Maisha Wyman RETAIL ACCOUNT SPECIALIST Work Phone: [facility] Comment on above: Primary hypertension (CMS/HCC) (Primary Dx); Symptoms of upper respiratory infection (URI); Chronic left shoulder pain; Mixed hyperlipidemia (CMS/HCC); Suspected chronic obstructive pulmonary disease based on initial evaluation (CMS/HCC); Chronic pain of left knee Start: 06-14-2024 End: 06-14-2024 ambulatory MAISHA WYMAN Not Available Start: 06-14-2024 End: 06-14-2024 Bamboo flowsheet Maisha Wyman RETAIL ACCOUNT SPECIALIST Work Phone: [facility] Start: 06-14-2024 End: 06-14-2024 Bamboo flowsheet Maisha Wyman RETAIL ACCOUNT SPECIALIST Work Phone: [facility] Start: 05-24-2024 End: 05-24-2024 Refill Maisha Wyman RETAIL ACCOUNT SPECIALIST Work Phone: [facility] Comment on above: Chronic left shoulde r pain; Chronic pain of left knee Start: 05-02-2024 End: 05-02-2024 ambulatory Chikis May MD Facility:[facility] Start: 03-15-2024 Preoperative state Maisha sheikh RETAIL ACCOUNT SPECIALIST Work Phone: [facility] Start: 03-15-2024 End: 03-15-2024 ambulatory [place] FAWWAD Not Available Start: 11-12-2023 Orders Only Shaikh Reyes PALACIO Work Phone: [facility] Comment on above: Chronic left shoulde r pain; Chronic pain of left knee Start: 11-09-2023 End: 11-09-2023 ambulatory Chikis May MD Facility:[facility] Start: 09-08-2023 Patient encounter procedure Shaikh Reyes [...] Start: 12-31-2020 End: 01-03-2021 ambulatory PHYSICIAN UNKNOWN Facility:[facility] Procedures Date Procedure Procedure Detail Performing Clinician Start: 01-24-2025 ALL CBC WITH AUTO DIFF Jose Guadalupe Mejia MD Work Phone: Start: 07-12-2024 ALL HEMOGLOBIN Maisha Wyman RETAIL ACCOUNT SPECIALIST Work Phone: Start: 01-08-2024 Mammography Maisha atkinson NP Work Phone: Start: 09-08-2023 Mammography Shaikh Mayelin rankin MD Work Phone: Start: 12-31-2020 ANESTH HIP ARTHROPLASTY HERMINIO ROBERTS Start: 12-31-2020 JOINT DEVICE (IMPLANTABLE) HERMINIO ROBERTS Start: 12-31-2020 TOTAL HIP ARTHROPLASTY HERMINIO ROBERTS Start: 10-05-2017 Colonoscopy Shaikh Mayelin rankin MD Work Phone: Plan of Treatment Date Care Activity Detail Author Start: 2077 Urine screening for protein Diabetes: Urine Protein Screening [facility] Start: 10-05-2027 Screening for malignant neoplasm of colon [facility] Start: 06-05-2025 Influenza vaccination Influenz a Vaccine (Season Ended) [facility] Start: 03-22-2025 End: 03-22-2025 Patient encounter procedure 03/22/2025 1:45 PM EDT Office Visit [facility] [address] [place] [phone] Jose Guadalupe Mejia MD [address] [place] [phone] [facility] Start: 01-07-2025 Screening for malignant neoplasm of breast Mammogram [facility] Start: 12-15-2024 End: 12-15-2024 Patient encounter procedure 12/15/2024 3:00 PM EDT Office Visit [facility] [address] [place] [phone] Maisha Wyman NP [address] [place] [phone] [facility] Start: 10-11-2024 End: 10-11-2024 Patient encounter procedure 10/11/2024 10:45 AM EST Office Visit [facility] [address] [place] [phone] Jr. Alessandro Mcconnell, DO [address] [place] [address] [place] [address] [facility] Start: 09-13-2024 End: 09-13-2024 Patient encounter procedure [facility] Comment on above: Arrived Start: 09-08-2024 Medicare Annual Wellness (AWV) Medicare Annual Wellness (AWV) [facility] Start: 09-08-2024 Screening for malignant neoplasm of breast Mammogram [facility] Start: 07-07-2024 End: 07-07-2025 Pulmonary function report Pulmonary Function Test Imaging Routine Suspected chronic obstructive pulmonary disease based on initial evaluation ([facility]) Expected: 07/07/2024, Expires: 07/07/2025 [facility] Work Phone: Comment on above: Expected: 07/07/2024 , Expires: 07/07/2025 Start: 06-14-2024 End: 06-14-2024 Patient encounter procedure [facility] Comment on above: Arrived Start: 06-14-2024 End: 06-14-2025 XR Knee - bilateral AP W standing XR knees anteroposterior standing bilateral Imaging Routine Chronic pain of left knee Expected: 06/14/2024, Expires: 06/14/2025 [facility] Work Phone: Comment on above: Expected: 06/14/2024 , Expires: 06/14/2025 Start: 06-05-2024 Influenza vaccination Influenza Vacc ine (#1) [facility] Start: 12-09-2023 End: 12-09-2023 Patient encounter procedure 12/09/2023 3:30 PM EST Office Visit [facility] [address] [place] [phone] Shaikh Chambers MD [address] [place] [phone] [facility] Start: 06-05-2023 Influenza vaccination Influenza Vacc ine (#1) [facility] Start: 2023 Pneumococcal Vaccine : 65+ Years (1 - PCV) Pneumococcal Vaccine: 65+ Years (1 - PCV) [facility] Start: 1988 Screening for malignant neoplasm of cervix [facility] Start: 1979 Screening for malignant neoplasm of cervix Pap Smear [facility] Start: 1977 Pneumococcal Vaccine : 65+ Years (1 of 2 - PCV) Pneumococcal Vaccine: 65+ Years (1 of 2 - PCV) [facility] Start: 1964 Pneumococcal Vaccine : 65+ Years (1 of 2 - PCV) Pneumococcal Vaccine: 65+ Years (1 of 2 - PCV) [facility] Start: 1960 Screening for malignant neoplasm of colon [facility] Immunizations Immunization Date Immunization Notes Care Provider Denisse [facility] 10-20-2022 tetanus toxoid, redu liudmila diphtheria toxoid, and acellular pertussis vaccine, adsorbed Maisha Wyman RETAIL ACCOUNT SPECIALIST Work Phone: [facility] 10-20-2022 zoster vaccine recombinant Maisha Wyman RETAIL ACCOUNT SPECIALIST Work Phone: [facility] 10-01-2022 influenza, injectabl e, quadrivalent, preservative free Maisha Wyman RETAIL ACCOUNT SPECIALIST Work Phone: [facility] 10-01-2022 influenza virus vaccine, unspecified formulation Shaikh Reyes PALACIO Work Phone: [facility] 12-24-2010 hepatitis B vaccine, pediatric or pediatric/adolescent dosage Maisha Wyman RETAIL ACCOUNT SPECIALIST Work Phone: [facility] 10-18-2010 hepatitis B vaccine, pediatric or pediatric/adolescent dosage Maisha Wyman RETAIL ACCOUNT SPECIALIST Work Phone: [facility] 06-28-2010 hepatitis B vaccine, pediatric or pediatric/adolescent dosage Amisha Wyman RETAIL ACCOUNT SPECIALIST Work Phone: [facility] Payers Date Payer Category Payer Unknown 2021 Medicare [employer] MEDICARE ADVANTAGE [facility] MEDICARE ADVANTAGE [id number] 2021-Present [address] [place] [address] [id number] 2021 Medicare (Managed Care) [employer]DELL MURPHYANNIE ADVANTAGE Member Subscriber Plan / Payer (Effective 2021-Present) Name: Blanca Moe Relation to Subscriber: Self Name: Blanca Moe Payer ID: Not on file Group ID: [id number] Type: Not on file Address: [address] [id number] 1961 Unknown [id number] 1960 Unknown [id number] 2.16.840.1.853122.3.579. 2.647 1960 Unknown [id number] 2.16.840.1.429986.3.579. 2.593 1958 Unknown [id number] 2.16.840.1.449309.3.579. 2.593 1958 Unknown [id number] 2.16.840.1.703482.3.579. 2.593 1958 Unknown [id number] 2.16.840.1.747345.3.579. 2.593 1958 Unknown [id number] 2.16.840.1.081875.3.579. 2.593 1958 Unknown [id number] 2.16.840.1.392266.3.579. 2.593 1958 Unknown [id number] 2.16.840.1.110398.3.579. 2.593 1958 Unknown [id number] 2.16.840.1.134396.3.579. 2.593 1958 Unknown [id number] 2.16.840.1.381476.3.579. 2.593 1958 Unknown [id number] 2.16.840.1.915616.3.579. 2.196 1958 Unknown [id number] 2.16.840.1.600348.3.579. 2.196 1958 Unknown [id number] 2.16.840.1.891457.3.579. 2.196 1958 Unknown [id number] 2.16.840.1.294599.3.579. 2.1259 1958 Unknown [id number] 2.16.840.1.389988.3.579. 2.1259 1958 Unknown [id number] 2.16.840.1.064897.3.579. 2.1259 1958 Unknown [id number] 2.16.840.1.682444.3.579. 2.1259 1958 Unknown [id number] 2.16.840.1.355571.3.579. 2.1259 Social History Date Type Detail Facility Start: 09-08-2023 End: 03-15-2024 Tobacco smoking status UTIS Ex-smoker [facility] are Start: 12-03-1980 End: 12-03-2020 History of tobacco use Current smoker [facility] Start: 12-03-1980 End: 12-03-2020 History of tobacco use Cigarette Smoker [facility] Start: 09-08-2023 End: 06-14-2024 Cigarettes smoked current (pack per day) - Reported 1 [facility] Start: 09-08-2023 End: 03-15-2024 Tobacco use and exposure Smokeless tobacco non-user [facility] Start: 09-08-2023 End: 12-20-2024 Alcohol intake Ex-drinker (finding) [facility] Start: 09-08-2023 End: 06-14-2024 Humiliation, Afraid, [...] to any clubs or organizations such as mu-ism groups, unions, fraternal or athletic groups, or [...] tobacco use Passive smoker [facility] Clinical Notes 12-17-2022 to 01-25-2025 Telephone Encounter - Jose Guadalupe Mejia MD - 01/25/2025 4:22 PM EDTTelephone Encounter - Jose Guadalupe Mejia MD - 01/25/2025 4:22 PM EDTTelephone Encounter - Afsaneh Morrow MA - 11/08/2024 9:46 AM EST Note Date & Type Note Facility 01-25-2025 Telephone encount er Note [facility] 01-25-2025 Miscellaneous Notes Formattin g of this note might be different from the original. documented in this encounter [facility] 11-08-2024 Telephone encount er Note LAKSHMI:09/13/2024 NOV:12/15/2024 [facility] 11-08-2024 Miscellaneous Notes Formattin g of this note might be different from the original. LAKSHMI:09/13/2024 NOV:12/15/2024 documented in this encounter [facility] 10-26-2024 Telephone encount er Note LAKSHMI:09/13/2024 NOV:12/15/2024 [facility] 10-26-2024 Miscellaneous Notes Formattin g of this note might be different from the original. LAKSHMI:09/13/2024 NOV:12/15/2024 documented in this encounter [facility] 09-13-2024 History of Presen t illness Narrative Associated Problem(s): Primary hypertension (CMS/HCC) Currently taking Carvedilol 25mg Hydrochlorothiazide 25mg Losartan 100mg Checks BP at home; Averages on log are 100's 70's. Too tightly controlled. Will decrease Losartan to 50mg today. Denies orthostatic changes, dizziness, shortness of breath, swelling in extremities. Given BP log, advised pt to record BP and bring log back with them to next visit. Associated Problem(s): Mixed hyperlipidemia (CMS/HCC) Currently taking Simvastatin 20mg Denies any myalgias. Continue current regimen. Associated Problem(s): Suspected chronic obstructive pulmonary disease based on initial evaluation (CMS/HCC) Former smoker, smoked for about 40 years. Reports intermittent wheezing. PFT's done 07/2024 show: There is a mild-moderate restrictive pattern on spirometry with normal lung volumes which can be seen in an obesity pattern (stated BMI 32.2). Diffusion capacity is normal. There is a positive bronchodilator response which may suggest an underlying obstructive process, such as asthma, obscurred by the Restriction. Continue Advair daily and albuterol PRN. Images from the original note were not included. Subjective Patient ID: Blanca Moe is a 64 y.o. female who presents for No chief complaint on file.. HPI HTN: Currently taking Carvedilol 25mg Hydrochlorothiazide 25mg Losartan 100mg Checks BP at home; Averages on log are 100's 70's. Too tightly controlled. Will decrease Losartan to 50mg today. Denies orthostatic changes, dizziness, shortness of breath, swelling in extremities. Given BP log, advised pt to record BP and bring log back with them to next visit. HLD: Currently taking Simvastatin 20mg Denies any myalgias. Continue current regimen. Component Ref Range & Units 6 mo ago (03/16/24) 6 mo ago (03/16/24) 6 mo ago (03/16/24) TRIGLYCERIDES <=150 mg/dL 57 143 R 16.2 Low R CHOLESTEROL <=200 mg/dL 181 3.5 R 0.3 R HDL CHOLESTEROL 40 - 60 mg/dL 72 High 12.4 R 7.1 High R Comment: > or =60 mg/dl - LOW CARDIOVASCULAR RISK <40 mg/dl - HIGH CARDIOVASCULAR RISK LDL CHOLESTEROL CALCULATED mg/dL 98.0 115 High R 1.5 R Comment: <100 mg/dl OPTIMAL 100-129 mg/dl NEAR OR ABOVE OPTIMAL 130-159 mg/dl BORDERLINE HIGH 160-189 mg/dl HIGH >190 mg/dl VERY HIGH VLDL CHOLESTEROL mg/dL 11.4 0.6 R 0.5 R CHOL HDL RATIO 2.5 21 R 0.03 R Comment: 3.3 - 4.4 LOW RISK 4.4 - 7.1 AVERAGE RISK 7.1 - 11.0 MODERATE RISK >11.0 HIGH RISK ALANINE AMINOTRANSFERASE 31 R ALKALINE PHOSPHATASE 71 R TOTAL PROTEIN 8.4 High R ALBUMIN LEVEL 4.2 R ALBUMIN GLOBULIN RATIO 1.0 Resulting Agency TBH TB TB Is following with ortho and PM. Is supposed to have LTKR but has to see dentistry first for dental clearance. Review of Systems Constitutional: Negative for activity change, appetite change, chills, diaphoresis, fatigue, fever and unexpected weight change. HENT: Negative for congestion, ear pain, rhinorrhea, sinus pressure, sinus pain, sneezing, sore throat, trouble swallowing and voice change. Eyes: Negative for visual disturbance. Respiratory: Negative for cough, chest tightness, shortness of breath and wheezing. Cardiovascular: Negative for chest pain, palpitations and leg swelling. Gastrointestinal: Negative for abdominal distention, abdominal pain, blood in stool, constipation, diarrhea and vomiting. Genitourinary: Negative for decreased urine volume, dysuria, flank pain, frequency, hematuria and urgency. Musculoskeletal: Positive for arthralgias and myalgias. Negative for gait problem and joint swelling. Skin: Negative for rash. Neurological: Negative for dizziness, tremors, syncope, weakness, light-headedness and headaches. Psychiatric/Behavioral: Negative for decreased concentration and suicidal ideas. The patient is not nervous/anxious. Hematological: Does not bruise/bleed easily. Endocrine: Negative for cold intolerance, heat intolerance, polydipsia, polyphagia and polyuria. Objective Physical Exam Vitals reviewed. Constitutional: Appearance: Normal appearance. HENT: Head: Normocephalic. Right Ear: Tympanic membrane and external ear normal. Left Ear: Tympanic membrane and external ear normal. Nose: Nose normal. Mouth/Throat: Mouth: Mucous membranes are moist. Pharynx: Oropharynx is clear. Eyes: Pupils: Pupils are equal, round, and reactive to light. Cardiovascular: Rate and Rhythm: Normal rate and regular rhythm. Pulses: Normal pulses. Heart sounds: Normal heart sounds. Pulmonary: Effort: Pulmonary effort is normal. Breath sounds: Normal breath sounds. Abdominal: General: Abdomen is flat. Bowel sounds are normal. Palpations: Abdomen is soft. Musculoskeletal: General: Normal range of motion. Cervical back: Normal range of motion. Skin: General: Skin is warm. Capillary Refill: Capillary refill takes less than 2 seconds. Neurological: Mental Status: She is alert and oriented to person, place, and time. Psychiatric: Mood and Affect: Mood normal. Behavior: Behavior normal. Assessment/Plan Problem List Items Addressed This Visit Primary hypertension (CMS/HCC) Currently taking Carvedilol 25mg Hydrochlorothiazide 25mg Losartan 100mg Checks BP at home; Averages on log are 100's 70's. Too tightly controlled. Will decrease Losartan to 50mg today. Denies orthostatic changes, dizziness, shortness of breath, swelling in extremities. Given BP log, advised pt to record BP and bring log back with them to next visit. Relevant Medications losartan (Cozaar) 50 MG tablet Mixed hyperlipidemia (CMS/HCC) - Primary Currently taking Simvastatin 20mg Denies any myalgias. Continue current regimen. Suspected chronic obstructive pulmonary disease based on initial evaluation ([facility]) Former smoker, smoked for about 40 years. Reports intermittent wheezing. PFT's done 07/2024 show: There is a mild-moderate restrictive pattern on spirometry with normal lung volumes which can be seen in an obesity pattern (stated BMI 32.2). Diffusion capacity is normal. There is a positive bronchodilator response which may suggest an underlying obstructive process, such as asthma, obscurred by the Restriction. Continue Advair daily and albuterol PRN. Relevant Medications Fluticasone-Salmeterol (Advair Diskus) 100-50 MCG/ACT aerosol powder Asthma ([facility]/HCC) Relevant Medications Fluticasone-Salmeterol (Advair Diskus) 100-50 MCG/ACT aerosol powder documented in this encounter [facility] 09-13-2024 Instructions Maisha Wyman NP - 09/13/2024 3:00 PM EST Start using Advair diskus DAILY. Use Albuterol NEEDED. documented in this encounter [facility] 08-24-2024 Telephone encount er Note LAKSHMI:06/14/2024 NOV:09/13/2024 [facility] 08-24-2024 Miscellaneous Notes Formattin g of this note might be different from the original. LAKSHMI:06/14/2024 NOV:09/13/2024 documented in this encounter [facility] 08-18-2024 Telephone encount er Note LAKSHMI:06/14/2024 NOV:09/04/2024 [facility] 08-18-2024 Miscellaneous Notes Formattin g of this note might be different from the original. LAKSHMI:06/14/2024 NOV:09/04/2024 documented in this encounter [facility] 08-16-2024 History of Presen t illness Narrative Images from the original note were not included. HISTORY OF PRESENT ILLNESS: EST PT Blanca Moe is an 64 y.o. @ female. EST PT WITH FLARE UP LT KNEE PAIN- PREVIOUSLY SAW [place] 01/2023- NO KNOWN INJURY- SYMPTOMS GRADUALLY INCREASING- MAISHA WYMAN TX; XRAY WB XRAY 07/29/24 [facility] PAIN ANTERIOR KNEE- USING WALKER TO AMBULATE- +WAKES HS - INCREASE PAIN WITH COLD/DAMP WEATHER- INCREASE PAIN WITH PROLONG STANDING/TWISTING MOTION - SOME STIFFNESS- DENIES SWELLING-+INSTABILITY - +OXYCODONE PER MAISHA WYMAN - +NABUMATONE/TYLENOL ALLERGIES: Allergies Allergen Reactions Aspirin Rash HOME MEDICATIONS: Current Outpatient Medications Medication Instructions albuterol HFA 90 mcg/act inhaler 2 puffs, Inhalation, Every 4 hours PRN alendronate (FOSAMAX) 35 mg, Oral, Every 7 days, Take in the morning with a full glass of water, on an empty stomach, and do not take anything else by mouth or lie down for the next 30 min. allopurinol (ZYLOPRIM) 100 mg, Oral, 2 times daily alpha tocopherol (Vitamin E) 400 units capsule 1 capsule, Every 24 hours B Complex Vitamins (VITAMIN B COMPLEX 100 IJ) Vitamin B Complex calcium carbonate 1500 (600 Ca) MG tablet Every 12 hours carvedilol (COREG) 25 mg, Oral, 2 times daily with meals cholecalciferol (Vitamin D-3) 25 MCG (1000 UT) capsule 1 capsule, Every 24 hours cinnamon 500 MG capsule as directed Orally coenzyme Q-10 100 MG capsule as directed Orally Cranberry 500 MG capsule as directed Orally Evening Huson Oil 1000 MG capsule as directed Orally famotidine (Pepcid) 20 MG tablet Every 24 hours fluticasone (Flonase) 50 MCG/ACT nasal spray 1-2 sprays, Each Nostril, Daily, Shake gently. Before first use, prime pump. After use, clean tip and replace cap. Fluticasone-Salmeterol (Advair Diskus) 100-50 MCG/ACT aerosol powder 1 puff, Inhalation, Daily gabapentin (NEURONTIN) 300 mg, Oral, 3 times daily Garlic 2 MG capsule Garlic Ginkgo Biloba 40 MG tablet Ginko Biloba Glucosamine Sulfate 1000 MG capsule Every 24 hours Grape Seed Extract 30 MG capsule Grape Seed Extract hydroCHLOROthiazide (HYDRODIURIL) 25 mg, Oral, Every morning loratadine (Claritin) 10 MG tablet Every 24 hours losartan (COZAAR) 100 mg, Oral, Daily nabumetone (RELAFEN) 500 mg, Oral, 2 times daily omega-3 (FISH OIL) 300 MG capsule Fish Oil oxyCODONE (ROXICODONE) 5 mg, Oral, Every 12 hours PRN PARoxetine (PAXIL) 20 mg, Oral, Daily Pediatric Multivitamins-Fl (MultiVitamin + Fluoride) 0.25 MG chewable tablet Multivitamin simvastatin (ZOCOR) 20 mg, Oral, Every 24 hours Turmeric Curcumin 500 MG capsule as directed Orally PHYSICAL EXAM: Knee Musculoskeletal Exam Gait Antalgic: left Limp: left Assistive device: walker Inspection Leg length disparity: no discrepancy Left Erythema: none Effusion: moderate Edema: none Ecchymosis: none Deformity: severe Alignment: varus Inspection additional comments: Pt wearing thigh high compression stockings. Palpation Left Left knee palpation is unremarkable. Increased warmth: none Masses: none Crepitus: patellofemoral and medial Tenderness: present Medial joint line: moderate Patella: mild Range of Motion Left Left knee range of motion is normal and full. Active extension: 5 Passive extension: 5 Active flexion: 115 Passive flexion: 115 Strength Left Left knee strength is normal. Extension: 4+/5. Extension is affected by pain. Flexion: 4+/5. Flexion is affected by pain. Instability Instability additional comments: + crepitus, Notable laxity LCL and MCL, soft end point lateral, medial end point noted. Neurovascular Left Left knee neurovascular exam is normal. Pulses - PT: normal Posterior tibial: 2+ Capillary refill: warm and well-perfused Special Signs Left Left knee special signs are normal. Patellar compression: mild Patellar apprehension: mild General Constitutional: appears stated age Labored breathing: no Psychiatric: normal mood and affect Neurological: alert Skin: intact Lymphadenopathy: none Vitals: There is no height or weight on file to calculate BMI. Tobacco Use: Medium Risk (06/14/2024) Patient History Smoking Tobacco Use: Former Smokeless Tobacco Use: Never Passive Exposure: Past Alcohol Use: Not At Risk (09/08/2023) AUDIT-C Frequency of Alcohol Consumption: Never Average Number of Drinks: Patient does not drink Frequency of Binge Drinking: Never IMAGING: [place] [address] XRay Report Signed Patient: BLANCA MOE MR#: [id number] : 1960 Acct:[id number] Age/Sex: 64 / F ADM Date: 07/29/24 Loc: [facility] Attending Dr: MAISHA WYMAN Ordering Physician: MAISHA WYMAN Date of Service: 07/29/24 Procedure(s): XR knee standing BI Accession Number(s): [id number] cc: MAISHA WYMAN [place] [id number] Patient Name: BLANCA MOE MRN: [id number] date: 1960 Sex: F Assigned Patient Location: [facility] Current Patient Location: Accession/Order Number: [id number] Exam Date: 07/29/2024 14:10 Report Date: 08/01/2024 06:46 At the request of: MAISHA WYMAN Procedure: XR knee standing BI EXAMINATION: XR knee standing BI HISTORY: Chronic Pain Of Left Knee M25.562 COMPARISON: No relevant comparison available. FINDINGS: RIGHT FINDINGS: BONES: A single frontal view demonstrates marked narrowing of the medial and lateral joint spaces with large periarticular degenerative osteophytes and subchondral sclerosis. SOFT TISSUES: No visible soft tissue swelling. OTHER: Negative. LEFT FINDINGS: BONES: A single frontal view demonstrates marked narrowing of the medial compartment with [id number] articulation. Large periarticular degenerative osteophytes involving the medial and lateral compartments. SOFT TISSUES: Large flocculent calcification along superior medial margin of the knee joint; heterotopic bone formation versus loose body within the joint capsule. OTHER: Negative. XR/XR knee standing BI IMPRESSION: RIGHT CONCLUSION: Marked degenerative joint disease. LEFT CONCLUSION: Marked degenerative joint disease. Electronically authenticated by: SLIME MILLAN Date: 08/01/2024 06:46 Procedures No orders of the defined types were placed in this encounter. ASSESSMENT: ICD-10-CM 1. Acute pain of left knee M25.562 PLAN: F/U Dr. Mcconnell s/p dental appt to discuss need for possible: (L) TKA with stems and augments- recommend new AP and lateral xray in office Reviewed WB xray from [facility], severe DJD with bone loss Medial joint line. + laxity in LCL/ MCL. Pt using walker daily.. windswept appearance bilateral knee. Antibiotic sent for dental prophylaxis. We discussed AAOS guidlines for initial treatment of symptomatic osteoarthritis: We have recommended Self-Management programs for strengthening, low-impact aerobic exercises, and physical activity maintenance and modifications to symptom tolerance. Surgical and non surgical tx options discussed with conservative measures reviewed. Recommend ICE/ ELEVATION, continued activity modification in interim. Pt would consider surgical intervention to possibly improve symptoms. Questions answered in laymen terms at the bedside. The diagnosis, home exercise plan and any ongoing restrictions/ recommendations reviewed. If unable to be reached in office, I recommend evaluation at nearest Emergency Room if any symptoms worsened or new symptoms develop for requiring urgent evaluation. documented in this encounter [facility] 08-16-2024 Telephone encount er Note LAKSHMI:06/14/2024 NOV:09/13/2024 [facility] 08-16-2024 Miscellaneous Notes Formattin g of this note might be different from the original. LAKSHMI:06/14/2024 NOV:09/13/2024 documented in this encounter [facility] 07-26-2024 Telephone encount er Note Pt states she used to be directed to take her paxil 20 mg and split it in half, she wanted to explain to you she does not actually take the 20 mg She also would like a refill on her Oxycodone. LAKSHMI:06/14/2024 NOV:09/13/2024 [facility] 07-26-2024 Miscellaneous Notes Formattin g of this note might be different from the original. Pt states she used to be directed to take her paxil 20 mg and split it in half, she wanted to explain to you she does not actually take the 20 mg She also would like a refill on her Oxycodone. LAKSHMI:06/14/2024 NOV:09/13/2024 documented in this encounter [facility] 06-14-2024 History of Presen t illness Narrative Associated Problem(s): Suspected chronic obstructive pulmonary disease based on initial evaluation (CMS/HCC) Former smoker, smoked for about 40 years. Reports intermittent wheezing. No formal testing/diagnosis of obstructive lung disease. Albuterol as needed. Dr. Chambers ordered PFT's in March 2024- pt has still yet to complete. Reprinted order today. Associated Problem(s): Mixed hyperlipidemia (CMS/HCC) Currently taking Simvastatin 20mg Denies any myalgias. Most recent Lipid Panel in 03/2024 WNL Continue current regimen. Associated Problem(s): Chronic pain of left knee Chronic left knee pain due to degenerative arthritis, uses a walker to ambulate. Pain is persistent with periods of worsening pain. She is using nabumetone along with oxycodone as needed for pain. Last xrays done in 2020. Ordered new xrays today. Will refer to ortho. Associated Problem(s): Chronic left shoulder pain Work up revealed rotator cuff tear. Was referred to ortho, was told she needs shoulder replacement. Stopped going after she decided she did not want surgery. Would like referral to a different ortho for second opinion. Is seeing Dr. Ingram @ Pain management. Is getting injections and taking Gabapentin. Will discuss with them oxycodone. Associated Problem(s): Primary hypertension (CMS/HCC) Currently taking Carvedilol 25mg Hydrochlorothiazide 25mg Losartan 100mg Does not check BP at home; Denies orthostatic changes, dizziness, shortness of breath, swelling in extremities. Continue current regimen. Given BP log, advised pt to record BP and bring log back with them to next visit. Associated Problem(s): Symptoms of upper respiratory infection (URI) URI Symptoms: Runny nose Sinus congestion Post nasal drip Cough Denies: Headache Fever Shortness of breath Chest Pain Swelling in hands/legs/feet Ear ache Ongoing X2 weeks; Discussed likely viral etiology. Continue to rest, drink plenty of fluids, and eat a well-balance diet. Resume normal activity. AVOID anything strenuous until you are feeling better. Treatment: Nasal saline spray 2-3 times/dayCold and sinus medication - if you have high blood pressure issues use coricidin hbpAllegra or zyrtec allergy medication once daily. Flonase nasal spray 1-2 squirts in each nostril at night. Tylenol for fever and body aches. Mucinex for cough/congestion 600-1,200mg twice daily. Delsym for a dry cough Vitamins: Vitamin C 1,000mg per day. Vitamin D3 2,000 international unit(s) per day.Zinc 25mg per day. WORSENING SYMPTOMS, CHEST PAIN, OR SHORTNESS OF BREATH, GO TO THE NEAREST EMERGENCY DEPARTMENT. Images from the original note were not included. Subjective Patient ID: Blanca Moe is a 64 y.o. female who presents for Follow-up (Med refills) and URI. HPI HTN: Currently taking Carvedilol 25mg Hydrochlorothiazide 25mg Losartan 100mg Does not check BP at home; Denies orthostatic changes, dizziness, shortness of breath, swelling in extremities. Continue current regimen. Given BP log, advised pt to record BP and bring log back with them to next visit. URI Symptoms: Runny nose Sinus congestion Post nasal drip Cough Denies: Headache Fever Shortness of breath Chest Pain Swelling in hands/legs/feet Ear ache Ongoing X2 weeks; TX: Nothing Currently taking Simvastatin 20mg Denies any myalgias. Continue current regimen. Component Ref Range & Units 3 mo ago (03/16/24) 3 mo ago (03/16/24) 3 mo ago (03/16/24) TRIGLYCERIDES <=150 mg/dL 57 143 R 16.2 Low R CHOLESTEROL <=200 mg/dL 181 3.5 R 0.3 R HDL CHOLESTEROL 40 - 60 mg/dL 72 High 12.4 R 7.1 High R Comment: > or =60 mg/dl - LOW CARDIOVASCULAR RISK <40 mg/dl - HIGH CARDIOVASCULAR RISK LDL CHOLESTEROL CALCULATED mg/dL 98.0 115 High R 1.5 R Comment: <100 mg/dl OPTIMAL 100-129 mg/dl NEAR OR ABOVE OPTIMAL 130-159 mg/dl BORDERLINE HIGH 160-189 mg/dl HIGH >190 mg/dl VERY HIGH VLDL CHOLESTEROL mg/dL 11.4 0.6 R 0.5 R CHOL HDL RATIO 2.5 21 R 0.03 R Comment: 3.3 - 4.4 LOW RISK 4.4 - 7.1 AVERAGE RISK 7.1 - 11.0 MODERATE RISK >11.0 HIGH RISK ALANINE AMINOTRANSFERASE 31 R ALKALINE PHOSPHATASE 71 R TOTAL PROTEIN 8.4 High R ALBUMIN LEVEL 4.2 R ALBUMIN GLOBULIN RATIO 1.0 Resulting Agency [facility] Review of Systems Constitutional: Negative for activity change, appetite change, chills, diaphoresis, fatigue, fever and unexpected weight change. HENT: Positive for congestion, postnasal drip, rhinorrhea and sinus pressure. Negative for ear pain, sinus pain, sneezing, sore throat, trouble swallowing and voice change. Eyes: Negative for visual disturbance. Respiratory: Positive for cough. Negative for chest tightness, shortness of breath and wheezing. Cardiovascular: Negative for chest pain, palpitations and leg swelling. Gastrointestinal: Negative for abdominal distention, abdominal pain, blood in stool, constipation, diarrhea and vomiting. Genitourinary: Negative for decreased urine volume, dysuria, flank pain, frequency, hematuria and urgency. Musculoskeletal: Positive for arthralgias. Negative for gait problem, joint swelling and myalgias. Skin: Negative for rash. Neurological: Negative for dizziness, tremors, syncope, weakness, light-headedness and headaches. Psychiatric/Behavioral: Negative for decreased concentration and suicidal ideas. The patient is not nervous/anxious. Hematological: Does not bruise/bleed easily. Endocrine: Negative for cold intolerance, heat intolerance, polydipsia, polyphagia and polyuria. Objective Physical Exam Vitals reviewed. Constitutional: Appearance: Normal appearance. HENT: Head: Normocephalic and atraumatic. Right Ear: Tympanic membrane normal. Left Ear: Tympanic membrane normal. Nose: Congestion and rhinorrhea present. Mouth/Throat: Mouth: Mucous membranes are moist. Pharynx: Oropharynx is clear. Eyes: Pupils: Pupils are equal, round, and reactive to light. Cardiovascular: Rate and Rhythm: Normal rate and regular rhythm. Pulses: Normal pulses. Heart sounds: Normal heart sounds. Pulmonary: Effort: Pulmonary effort is normal. Breath sounds: Normal breath sounds. Abdominal: General: Abdomen is flat. Bowel sounds are normal. Palpations: Abdomen is soft. Musculoskeletal: General: Normal range of motion. Cervical back: Normal range of motion. Right knee: Tenderness present. Left knee: Tenderness present. Skin: General: Skin is warm and dry. Capillary Refill: Capillary refill takes less than 2 seconds. Neurological: General: No focal deficit present. Mental Status: She is alert and oriented to person, place, and time. Psychiatric: Mood and Affect: Mood normal. Behavior: Behavior normal. Assessment/Plan Problem List Items Addressed This Visit Primary hypertension ([facility]) - Primary Currently taking Carvedilol 25mg Hydrochlorothiazide 25mg Losartan 100mg Does not check BP at home; Denies orthostatic changes, dizziness, shortness of breath, swelling in extremities. Continue current regimen. Given BP log, advised pt to record BP and bring log back with them to next visit. Chronic left shoulder pain Work up revealed rotator cuff tear. Was referred to ortho, was told she needs shoulder replacement. Stopped going after she decided she did not want surgery. Would like referral to a different ortho for second opinion. Is seeing Dr. Ingram @ Pain management. Is getting injections and taking Gabapentin. Will discuss with them oxycodone. Chronic pain of left knee Chronic left knee pain due to degenerative arthritis, uses a walker to ambulate. Pain is persistent with periods of worsening pain. She is using nabumetone along with oxycodone as needed for pain. Last xrays done in 2020. Ordered new xrays today. Will refer to ortho. Relevant Orders XR knees anteroposterior standing bilateral Mixed hyperlipidemia ([facility]) Currently taking Simvastatin 20mg Denies any myalgias. Most recent Lipid Panel in 03/2024 WNL Continue current regimen. Suspected chronic obstructive pulmonary disease based on initial evaluation ([facility]) Former smoker, smoked for about 40 years. Reports intermittent wheezing. No formal testing/diagnosis of obstructive lung disease. Albuterol as needed. Dr. Chambers ordered PFT's in March 2024- pt has still yet to complete. Reprinted order today. Relevant Medications albuterol HFA 90 mcg/act inhaler Symptoms of upper respiratory infection (URI) URI Symptoms: Runny nose Sinus congestion Post nasal drip Cough Denies: Headache Fever Shortness of breath Chest Pain Swelling in hands/legs/feet Ear ache Ongoing X2 weeks; Discussed likely viral etiology. Continue to rest, drink plenty of fluids, and eat a well-balance diet. Resume normal activity. AVOID anything strenuous until you are feeling better. Treatment: Nasal saline spray 2-3 times/dayCold and sinus medication - if you have high blood pressure issues use coricidin hbpAllegra or zyrtec allergy medication once daily. Flonase nasal spray 1-2 squirts in each nostril at night. Tylenol for fever and body aches. Mucinex for cough/congestion 600-1,200mg twice daily. Delsym for a dry cough Vitamins: Vitamin C 1,000mg per day. Vitamin D3 2,000 international unit(s) per day.Zinc 25mg per day. WORSENING SYMPTOMS, CHEST PAIN, OR SHORTNESS OF BREATH, GO TO THE NEAREST EMERGENCY DEPARTMENT. Relevant Medications fluticasone (Flonase) 50 MCG/ACT nasal spray documented in this encounter [facility] 06-14-2024 Instructions Maisha Wyman NP - 06/14/2024 3:00 PM EDT Have PFTs done; We will call you with results URI Viral Symptoms: Continue to rest, drink plenty of fluids, and eat a well-balance diet. Resume normal activity. AVOID anything strenuous until you are feeling better. Treatment: Nasal saline spray 2-3 times/dayCold and sinus medication - if you have high blood pressure issues use coricidin hbpAllegra or zyrtec allergy medication once daily. Flonase nasal spray 1-2 squirts in each nostril at night. Tylenol for fever and body aches. Mucinex for cough/congestion 600-1,200mg twice daily. Delsym for a dry cough Vitamins: Vitamin C 1,000mg per day. Vitamin D3 2,000 international unit(s) per day.Zinc 25mg per day. WORSENING SYMPTOMS, CHEST PAIN, OR SHORTNESS OF BREATH, GO TO THE NEAREST EMERGENCY DEPARTMENT. documented in this encounter [facility] 12-17-2022 Note PROCEDURE: XR HIP RT 2 [...] evidence of hardware failure. Electronically authenticated by: SLIME MILLAN Date: 2022-12-17 16:26 [facility] Evaluation note Diagnosis Chronic left shoulder pain Pain in joint, shoulder region Chronic pain of left knee [facility] Diagnosis Suspected chronic obstructive pulmonary disease based on initial evaluation (CMS/HCC)- Primary [facility] Diagnosis Suspected chronic obstructive pulmonary disease based on initial evaluation (CMS/HCC)- Primary Mild intermittent asthma without complication (CMS/HCC) [facility] Diagnosis Primary hypertension (CMS/HCC)- Primary Unspecified essential [...] left knee [facility] Diagnosis Primary hypertension (CMS/HCC)- Primary Unspecified essential [...] left knee [facility] Diagnosis Primary hypertension (CMS/HCC)- Primary Unspecified essential [...] evaluation (CMS/HCC) Chronic pain of left knee Osteoarthritis of both knees, unspecified osteoarthritis type- Primary [facility] Diagnosis Primary hypertension (CMS/HCC)- Primary Unspecified essential [...] obstructive pulmonary disease based on initial evaluation ([facility]) Pre-operative clearance- Primary Unspecified pre-operative examination Primary hypertension (CMS/HCC)- Primary Unspecified essential hypertension Symptoms of upper respiratory infection (URI) Chronic left shoulder pain Pain in joint, shoulder region Mixed hyperlipidemia (CMS/HCC) Mixed hyperlipidemia Suspected chronic obstructive pulmonary disease based on initial evaluation ([facility]) Chronic pain of left knee Acute pain of left knee- Primary Arthritis of left knee History of total right hip replacement documented in this encounter [facility]* Diagnosis Primary hypertension (CMS/HCC)- Primary Unspecified essential [...] obstructive pulmonary disease based on initial evaluation ([facility]) Pre-operative clearance- Primary Unspecified pre-operative examination Primary hypertension (CMS/HCC)- Primary Unspecified essential hypertension Symptoms of upper respiratory infection (URI) Chronic left shoulder pain Pain in joint, shoulder region Mixed hyperlipidemia (CMS/HCC) Mixed hyperlipidemia Suspected chronic obstructive pulmonary disease based on initial evaluation ([facility]) Chronic pain of left knee Chronic left shoulder pain Pain in joint, shoulder region Chronic pain of left knee documented in this encounter [facility]* Diagnosis Primary hypertension (CMS/HCC)- Primary Unspecified essential [...] evaluation (CMS/HCC) Chronic pain of left knee Mixed hyperlipidemia (CMS/HCC) Mixed hyperlipidemia documented in this encounter [facility]* Diagnosis Primary hypertension (CMS/HCC)- Primary Unspecified essential [...] evaluation (CMS/HCC) Chronic pain of left knee Primary hypertension (CMS/HCC) Unspecified essential hypertension documented in this encounter [facility]* Diagnosis Osteoporosis without current pathological fracture, unspecified osteoporosis type (CMS/HCC) documented in this encounter [facility]* Diagnosis Primary hypertension (CMS/HCC)- Primary Unspecified essential [...] obstructive pulmonary disease based on initial evaluation ([facility]) Pre-operative clearance- Primary Unspecified pre-operative examination Primary hypertension (CMS/HCC)- Primary Unspecified essential hypertension Symptoms of upper respiratory infection (URI) Chronic left shoulder pain Pain in joint, shoulder region Mixed hyperlipidemia (CMS/HCC) Mixed hyperlipidemia Suspected chronic obstructive pulmonary disease based on initial evaluation (CMS/HCC) Chronic pain of left knee Mixed hyperlipidemia (CMS/HCC)- Primary Mixed hyperlipidemia Suspected chronic obstructive pulmonary disease based on initial evaluation ([facility]/HCC) Mild intermittent asthma without complication (CMS/HCC) Primary hypertension (CMS/HCC) Unspecified essential hypertension Osteoporosis without current pathological fracture, unspecified osteoporosis type (CMS/HCC) documented in this encounter [facility]Evaluation note* Diagnosis Primary hypertension (CMS/HCC)- Primary Unspecified essential [...] obstructive pulmonary disease based on initial evaluation (CMS/[facility]) Pre-operative clearance- Primary Unspecified pre-operative examination Primary hypertension (CMS/HCC)- Primary Unspecified essential hypertension Symptoms of upper respiratory infection (URI) Chronic left shoulder pain Pain in joint, shoulder region Mixed hyperlipidemia (CMS/HCC) Mixed hyperlipidemia Suspected chronic obstructive pulmonary disease based on initial evaluation ([facility]) Chronic pain of left knee Mixed hyperlipidemia ([facility]/HCC)- Primary Mixed hyperlipidemia Suspected chronic obstructive pulmonary disease based on initial evaluation ([facility]) Mild intermittent asthma without complication ([facility]) Primary hypertension ([facility]) Unspecified essential hypertension Osteoporosis without current pathological fracture, unspecified osteoporosis type ([facility]) Primary hypertension ([facility]) Unspecified essential hypertension Hyperuricemia Other abnormal blood chemistry Chronic left shoulder pain Pain in joint, shoulder region Chronic pain of left knee Mixed hyperlipidemia ([facility]) Mixed hyperlipidemia documented in this encounter [facility]* Diagnosis Chronic left shoulder pain Pain in joint, shoulder region Chronic pain of left knee documented in this encounter [facility]* Diagnosis Primary hypertension ([facility]/HCC)- Primary Unspecified essential hypertension Symptoms of upper respiratory infection (URI) Chronic left shoulder pain Pain in joint, shoulder region Mixed hyperlipidemia ([facility]) Mixed hyperlipidemia Suspected chronic obstructive pulmonary disease based on initial evaluation ([facility]) Chronic pain of left knee documented in this encounter [facility]* Diagnosis Primary hypertension ([facility]/HCC) Unspecified essential hypertension Chronic left shoulder pain Pain in joint, shoulder region Chronic pain of left knee documented in this encounter [facility]* Diagnosis Primary hypertension ([facility]/HCC)- Primary Unspecified essential hypertension Chronic left shoulder [...] obstructive pulmonary disease based on initial evaluation ([facility]/HCC) Pre-operative clearance- Primary Unspecified pre-operative examination Primary hypertension (CMS/HCC)- Primary Unspecified essential hypertension Symptoms of upper respiratory infection (URI) Chronic left shoulder pain Pain in joint, shoulder region Mixed hyperlipidemia (CMS/HCC) Mixed hyperlipidemia Suspected chronic obstructive pulmonary disease based on initial evaluation (CMS/HCC) Chronic pain of left knee Mixed hyperlipidemia (CMS/HCC)- Primary Mixed hyperlipidemia Suspected chronic obstructive pulmonary disease based on initial evaluation (CMS/HCC) Mild intermittent asthma without complication (CMS/HCC) Primary hypertension (CMS/HCC) Unspecified essential hypertension Osteoporosis without current pathological fracture, unspecified osteoporosis type (CMS/HCC) Chronic left shoulder pain Pain in joint, shoulder region Chronic pain of left knee Suspected chronic obstructive pulmonary disease based on initial evaluation (CMS/HCC) Hyperuricemia Other abnormal blood chemistry Primary hypertension (CMS/HCC) Unspecified essential hypertension documented in this encounter [facility]* Diagnosis Primary hypertension (CMS/HCC)- Primary Unspecified essential [...] evaluation (CMS/HCC) Chronic pain of left knee Mixed hyperlipidemia (CMS/HCC)- Primary Mixed hyperlipidemia Suspected chronic obstructive pulmonary disease based on initial evaluation (CMS/HCC) Mild intermittent asthma without complication (CMS/HCC) Primary hypertension (CMS/HCC) Unspecified essential hypertension Osteoporosis without current pathological fracture, unspecified osteoporosis type (CMS/HCC) Chronic left shoulder pain Pain in joint, shoulder region Chronic pain of left knee documented in this encounter [facility] HealthcareEvaluation note* Diagnosis Primary hypertension (CMS/HCC)- Primary Unspecified essential [...] obstructive pulmonary disease based on initial evaluation ([facility]) Pre-operative clearance- Primary Unspecified pre-operative examination Primary hypertension (CMS/HCC)- Primary Unspecified essential hypertension Symptoms of upper respiratory infection (URI) Chronic left shoulder pain Pain in joint, shoulder region Mixed hyperlipidemia (CMS/HCC) Mixed hyperlipidemia Suspected chronic obstructive pulmonary disease based on initial evaluation ([facility]) Chronic pain of left knee Mixed hyperlipidemia (CMS/HCC)- Primary Mixed hyperlipidemia Suspected chronic obstructive pulmonary disease based on initial evaluation ([facility]) Mild intermittent asthma without complication ([facility]) Primary hypertension ([facility]/HCC) Unspecified essential hypertension Osteoporosis without current pathological fracture, unspecified osteoporosis type ([facility]/HCC) Chronic left shoulder pain Pain in joint, shoulder region Chronic pain of left knee documented in this encounter [facility] HealthcareEvaluation note* Diagnosis Primary hypertension (CMS/HCC)- Primary Unspecified essential [...] evaluation (CMS/HCC) Chronic pain of left knee Mixed hyperlipidemia (CMS/HCC)- Primary Mixed hyperlipidemia Suspected chronic obstructive pulmonary disease based on initial evaluation (CMS/HCC) Mild intermittent asthma without complication (CMS/HCC) Primary hypertension (CMS/HCC) Unspecified essential hypertension Osteoporosis without current pathological fracture, unspecified osteoporosis type (CMS/HCC) Primary hypertension (CMS/HCC)- Primary Unspecified essential hypertension MDD (major depressive disorder), recurrent episode, mild (HCC) (CMS/HCC) Chronic obstructive pulmonary disease, unspecified COPD type (CMS/HCC) Primary osteoarthritis of left knee Rotator cuff arthropathy of left shoulder Osteoporosis without current pathological fracture, unspecified osteoporosis type ([facility]/HCC) Class 1 obesity due to excess calories with serious comorbidity and body mass index (BMI) of 30.0 to 30.9 in adult Encounter for long-term (current) use of medications Encounter for long-term (current) use of other medications Prediabetes Other abnormal glucose Dyslipidemia (CMS/HCC) Other and unspecified hyperlipidemia Chronic left shoulder pain Pain in joint, shoulder region Chronic pain of left knee documented in this encounter [facility] HealthcareEvaluation note* Diagnosis Primary hypertension (CMS/HCC)- Primary Unspecified essential [...] obstructive pulmonary disease based on initial evaluation ([facility]) Pre-operative clearance- Primary Unspecified pre-operative examination Primary hypertension (CMS/HCC)- Primary Unspecified essential hypertension Symptoms of upper respiratory infection (URI) Chronic left shoulder pain Pain in joint, shoulder region Mixed hyperlipidemia (CMS/HCC) Mixed hyperlipidemia Suspected chronic obstructive pulmonary disease based on initial evaluation (CMS/HCC) Chronic pain of left knee Mixed hyperlipidemia (CMS/HCC)- Primary Mixed hyperlipidemia Suspected chronic obstructive pulmonary disease based on initial evaluation (CMS/HCC) Mild intermittent asthma without complication (CMS/HCC) Primary hypertension (CMS/HCC) Unspecified essential hypertension Osteoporosis without current pathological fracture, unspecified osteoporosis type (CMS/HCC) Primary hypertension (CMS/HCC)- Primary Unspecified essential hypertension MDD (major depressive disorder), recurrent episode, mild (HCC) (CMS/HCC) Chronic obstructive pulmonary disease, unspecified COPD type (CMS/HCC) Primary osteoarthritis of left knee Rotator cuff arthropathy of left shoulder Osteoporosis without current pathological fracture, unspecified osteoporosis type (CMS/HCC) Class 1 obesity due to excess calories with serious comorbidity and body mass index (BMI) of 30.0 to 30.9 in adult Encounter for long-term (current) use of medications Encounter for long-term (current) use of other medications Prediabetes Other abnormal glucose Dyslipidemia (CMS/HCC) Other and unspecified hyperlipidemia MDD (major depressive disorder), recurrent episode, mild (HCC) (CMS/HCC) documented in this encounter [facility] HealthcareEvaluation note* Diagnosis Primary hypertension (CMS/HCC)- Primary Unspecified essential [...] obstructive pulmonary disease based on initial evaluation ([facility]) Pre-operative clearance- Primary Unspecified pre-operative examination Primary hypertension (CMS/HCC)- Primary Unspecified essential hypertension Symptoms of upper respiratory infection (URI) Chronic left shoulder pain Pain in joint, shoulder region Mixed hyperlipidemia (CMS/HCC) Mixed hyperlipidemia Suspected chronic obstructive pulmonary disease based on initial evaluation (CMS/HCC) Chronic pain of left knee Mixed hyperlipidemia (CMS/HCC)- Primary Mixed hyperlipidemia Suspected chronic obstructive pulmonary disease based on initial evaluation (CMS/HCC) Mild intermittent asthma without complication (CMS/HCC) Primary hypertension (CMS/HCC) Unspecified essential hypertension Osteoporosis without current pathological fracture, unspecified osteoporosis type (CMS/HCC) Primary hypertension (CMS/HCC)- Primary Unspecified essential hypertension MDD (major depressive disorder), recurrent episode, mild (HCC) (CMS/HCC) Chronic obstructive pulmonary disease, unspecified COPD type (CMS/HCC) Primary osteoarthritis of left knee Rotator cuff arthropathy of left shoulder Osteoporosis without current pathological fracture, unspecified osteoporosis type (CMS/HCC) Class 1 obesity due to excess calories with serious comorbidity and body mass index (BMI) of 30.0 to 30.9 in adult Encounter for long-term (current) use of medications Encounter for long-term (current) use of other medications Prediabetes Other abnormal glucose Dyslipidemia (CMS/HCC) Other and unspecified hyperlipidemia Chronic left shoulder pain Pain in joint, shoulder region Chronic pain of left knee documented in this encounter [facility] Summary Purpose Family History No Family History Records FoundNo Family History Records FoundNo Family History Records FoundNo Family History Records Found Advance Directives No Advanced Directives Records FoundNo Advanced Directives Records FoundNo Advanced Directives Records FoundNo Advanced Directives Records Found Reason for Referral Specialty Diagnoses / Procedures Referred By Gabriel garcia Referred To Contact Diagnoses Chronic left shoulder pain Chronic pain of left knee Maisha Wyman, FREDO [address] [place] [address] Referral ID Status Reason Start Date Expiration Date Visits Re quested Visits Authorized [id number] Closed 1 1 Additional Source Comments INFORMATION SOURCE (unrecogn ized section and content) DATE CREATED AUTHOR 02/27/2021 [facility] DATE CREATED AUTHOR AUTHOR'S ORGANIZ ATION 03/13/2023 [facility] DATE CREATED AUTHOR AUTHOR'S ORGANIZ ATION 07/04/2024 [facility] DATE CREATED AUTHOR AUTHOR'S ORGANIZ ATION 12/22/2024 [facility] dical Specialists [facility] Care Teams (unrecognized sec tion and content) Research Animal Attendant Relationship Specialty Start Date End Date Shaikh Chambers MD PCP - General Internal Medicine 05/04/23 Research Animal Attendant Relationship Specialty Start Date End Date Jose Guadalupe Mejia MD [address] [place] [phone] PCP - General Family Medicine 05/12/24 Maisha Wyman NP [address] [place] [address] Nurse Practitioner Family Medicine 05/12/24 Research Animal Attendant Relationship Specialty Start Date End Date Jose Guadalupe Mejia MD [address] [place] [phone] PCP - General Family Medicine 05/12/24 Maisha Wyman NP [address] [place] [address] Nurse Practitioner Family Medicine 05/12/24 Research Animal Attendant Relationship Specialty Start Date End Date Jose Guadalupe Mejia MD [address] [place] [address] PCP - General Family Medicine 05/12/24 Maisha Wyman NP [address] [place] [address] Nurse Practitioner Family Medicine 05/12/24 Research Animal Attendant Relationship Specialty Start Date End Date Jose Guadalupe Mejia MD [address] [place] [phone] PCP - General Family Medicine 05/12/24 Maisha Wyman NP [address] [place] [address] Nurse Practitioner Family Medicine 05/12/24 Research Animal Attendant Relationship Specialty Start Date End Date Unallocated, Noms MD Lyn [address] [place] [address] PCP - General Family Medicine 07/25/24 Maisha Wyman NP [address] [place] [address] Nurse Practitioner Family Medicine 05/12/24 Research Animal Attendant Relationship Specialty Start Date End Date Jose Guadalupe Mejia MD [address] [place] [phone] PCP - General Family Medicine 08/04/24 Maisha Wyman NP [address] [place] [address] Nurse Practitioner Family Medicine 05/12/24 Research Animal Attendant Relationship Specialty Start Date End Date Jose Guadalupe Mejia MD [address] [place] [phone] PCP - General Family Medicine 08/04/24 Maisha Wyman NP [address] [place] [address] Nurse Practitioner Family Medicine 05/12/24 Research Animal Attendant Relationship Specialty Start Date End Date Jose Guadalupe Mejia MD [address] [place] [address] PCP - General Family Medicine 08/04/24 Maisha Wyman NP [address] [place] [address] Nurse Practitioner Family Medicine 05/12/24 Research Animal Attendant Relationship Specialty Start Date End Date Jose Guadalupe Mejia MD [address] [place] [address] PCP - General Family Medicine 08/04/24 Maisha Wyman NP [address] [place] [address] Nurse Practitioner Family Medicine 05/12/24 Research Animal Attendant Relationship Specialty Start Date End Date Jose Guadalupe Mejia MD [address] [place] [address] PCP - General Family Medicine 05/12/24 Maisha Wyman NP [address] [place] [address] Nurse Practitioner Family Medicine 05/12/24 Research Animal Attendant Relationship Specialty Start Date End Date Jose Guadalupe Mejia MD [address] [place] [address] PCP - General Family Medicine 08/04/24 Maisha Wyman NP [address] [place] [address] Nurse Practitioner Family Medicine 05/12/24 Research Animal Attendant Relationship Specialty Start Date End Date Jose Guadalupe Mejia MD [address] [place] [phone] PCP - General Family Medicine 08/04/24 Maisha Wyman NP [address] [place] [address] Nurse Practitioner Family Medicine 05/12/24 Research Animal Attendant Relationship Specialty Start Date End Date Jose Guadalupe Mejia MD [address] [place] [phone] PCP - General Family Medicine 08/04/24 Maisha Wyman NP [address] [place] [address] Nurse Practitioner Family Medicine 05/12/24 Research Animal Attendant Relationship Specialty Start Date End Date Jose Guadalupe Mejia MD [address] [place] [phone] PCP - General Family Medicine 05/12/24 Maisha Wyman NP [address] [place] [address] Nurse Practitioner Family Medicine 05/12/24 Research Animal Attendant Relationship Specialty Start Date End Date Jose Guadalupe Mejia MD [address] [place] [phone] PCP - General Family Medicine 05/12/24 Maisha Wyman NP [address] [place] [address] Nurse Practitioner Family Medicine 05/12/24 Research Animal Attendant Relationship Specialty Start Date End Date Jose Guadalupe Mejia MD [address] [place] [address] PCP - General Family Medicine 05/12/24 Maisha Wyman NP [address] [place] [address] Nurse Practitioner Family Medicine 05/12/24 Research Animal Attendant Relationship Specialty Start Date End Date Jose Guadalupe Mejia MD [address] [place] [address] PCP - General Family Medicine 05/12/24 Maisha Wyman NP [address] [place] [address] Nurse Practitioner Family Medicine 05/12/24 Research Animal Attendant Relationship Specialty Start Date End Date Jose Guadalupe Mejia MD [address] [place] [phone] PCP - General Family Medicine 08/04/24 Maisha Wyman NP [address] [place] [address] Nurse Practitioner Family Medicine 05/12/24 Research Animal Attendant Relationship Specialty Start Date End Date Jose Guadalupe Mejia MD [address] [place] [phone] PCP - General Family Medicine 08/04/24 Maisha Wyman NP [address] [place] [address] Nurse Practitioner Family Medicine 05/12/24 Research Animal Attendant Relationship Specialty Start Date End Date Jose Guadalupe Mejia MD [address] [place] [address] PCP - General Family Medicine 08/04/24 Maisha Wyman NP [address] [place] [address] Nurse Practitioner Family Medicine 05/12/24 Research Animal Attendant Relationship Specialty Start Date End Date Jose Guadalupe Mejia MD [address] [place] [address] PCP - General Family Medicine 08/04/24 Shaikh Chambers MD [address] [place] [phone] PCP Daryl Lenz MA 10/05/24 Maisha Wyman NP Nurse Practitioner Family Medicine 05/12/24 Research Animal Attendant Relationship Specialty Start Date End Date Jose Guadalupe Mejia MD [address] [place] [address] PCP - General Family Medicine 08/04/24 Shaikh Chambers MD [address] [place] [address] PCP Daryl Lenz MA 10/05/24 Maisha Wyman NP Nurse Practitioner Family Medicine 05/12/24 Research Animal Attendant Relationship Specialty Start Date End Date Jose Guadalupe Mejia MD [address] [place] [address] PCP - General Family Medicine 08/04/24 Shaikh Chambers MD [address] [place] [address] PCP Daryl Lenz MA 10/05/24 Maisha Wyman NP Nurse Practitioner Family Medicine 05/12/24 Research Animal Attendant Relationship Specialty Start Date End Date Jose Guadalupe Mejia MD [address] [place] [phone] PCP - General Family Medicine 08/04/24 Shaikh Chambers MD [address] [place] [address] TONNY Lenz MA 10/05/24 Maisha Wyman NP Nurse Practitioner Family Medicine 05/12/24 Reason for Visit (unrecogniz ed section and content) Reason Onset Date Comments Med Refill 07/14/2024 Reason Onset Date Comments Med Refill 07/26/2024 Reason Comments Pain Specialty Diagnoses / Procedures Referred By Gabriel garcia Referred To Contact Orthopaedic Surgery Diagnoses Osteoarthritis of both knees, unspecified osteoarthritis type Maisha Wyman NP [address] [place] [address] Phone: tel: fax: Duncan Bradshaw PA [address] [facility] [address] [place] [address] Phone: tel: fax: Referral ID Status Reason Start Date Expiration Date V isits Requested Visits Authorized [id number] Closed Specialty Services Required 08/08/2024 02/04/2025 1 1 Reason Onset Date Comments Med Refill 08/24/2024 Reason Onset Date Comments Med Refill 08/16/2024 Reason Onset Date Comments Med Refill 08/18/2024 Reason Onset Date Comments Med Refill 06/21/2024 Reason Onset Date Comments Med Refill 09/14/2024 Reason Comments Follow-up Med refills URI Reason Comments Med Refill Reason Onset Date Comments Med Refill 10/26/2024 Reason Onset Date Comments Med Refill 11/08/2024 Reason Onset Date Comments Med Refill 12/26/2024 Reason Onset Date Comments Med Refill 01/23/2025 Reason Onset Date Comments Med Refill 01/25/2025 FOR RECORDS PERTAINING TO PATIENTS WHO ARE [...] BE BASED ON THE PRIMARY CLINICAL RECORDS. [employer] provides no warranty or guarantee of the accuracy or completeness of information in this document.
--- NOTE | 2025-02-16 11:20 | PM.CN ---
Consult Note: HPI Data of Consult Patient: known to practice within the last 3 years Requesting Physician: Deysi Zhou NP Primary Care Provider: Jose Guadalupe Villafuerte MD Consult Narrative Reason for consult: left shoulder pain Narrative: Pleasant 64yof who presents for assessment. chronic left shoulder pain secondary to OA. prior left suprascapular and axillary RFA provided moderate relief greater than 6 months. pain today 8/10 in left shoulder, sharp pain with ROM and lifting. utilizing nabumatone, gabapentin, tylenol, tumeric, and oxycodone. denies side effects. continues to engage in provider guided HEP > 6 weeks without significant improvement in pain or functional ability. cc:: CC: Deysi Zhou NP Review of Systems ROS Status of ROS 10 or more systems reviewed and unremarkable except as noted in history and below Musculoskeletal Reports: neck pain, extremity pain and joint pain Meds Home Medications and Allergies Home Medications ?Medication ?Instructions ?Recorded ?Confirmed ?Type acetaminophen 325 mg tablet 650 mg PO Q6H PRN pain 06/22/23 06/27/24 History (Tylenol) nabumetone 500 mg tablet 500 mg PO BID 06/22/23 06/27/24 History oxycodone 5 mg capsule 5 mg PO BID 06/22/23 06/27/24 History TUMERIC QDAY 06/24/23 History Vitamin B-Complex QDAY 06/24/23 History alendronate 35 mg tablet 35 mg PO QWEEK 06/24/23 06/27/24 History allopurinol 100 mg tablet 100 mg PO BID 06/24/23 06/27/24 History ascorbate calcium (vitamin C) 500 500 mg PO DAILY 06/24/23 06/27/24 History mg tablet bromelains 375 mg capsule mg PO 06/24/23 History calcium carb-ergocalciferol (vit tab PO 06/24/23 History D2) 600 mg calcium-200 unit tablet carvedilol 25 mg tablet (Coreg) 25 mg PO Q12H 06/24/23 06/27/24 History cholecalciferol (vitamin D3) 50 50 mcg PO DAILY 06/24/23 06/27/24 History mcg (2,000 unit) tablet (D3 DOTS) cinnamon bark 500 mg capsule 1,000 mg PO DAILY 06/24/23 06/27/24 History (Cinnamon) coenzyme Q10 100 mg capsule (Co 200 mg PO DAILY 06/24/23 06/27/24 History Q-10) cranberry extract 500 mg capsule 500 mg PO DAILY 06/24/23 06/27/24 History evening primrose oil 500 mg capsule 500 mg PO DAILY 06/24/23 06/27/24 History famotidine 20 mg tablet (Pepcid) 20 mg PO DAILY 06/24/23 06/27/24 History gabapentin 300 mg capsule 300 mg PO TID 06/24/23 06/27/24 History garlic 1,000 mg capsule (garlic 1,000 mg PO DAILY 06/24/23 06/27/24 History oil) ginkgo biloba 120 mg tablet 120 mg PO DAILY 06/24/23 06/27/24 History glucosamine sulfate 1,000 mg 1,000 mg PO DAILY 06/24/23 06/27/24 History capsule grape seed extract 50 mg capsule 100 mg PO DAILY 06/24/23 06/27/24 History green tea leaf extract 250 mg 500 mg PO QDAY 06/24/23 06/27/24 History capsule (Green Tea) hydrochlorothiazide 25 mg tablet 25 mg PO DAILY 06/24/23 06/27/24 History loratadine 10 mg capsule 10 mg PO DAILY 06/24/23 06/27/24 History losartan 100 mg tablet 100 mg PO DAILY 06/24/23 06/27/24 History melatonin 10 mg tablet 20 mg PO DAILY 06/24/23 06/27/24 History multivitamin 1 tab PO DAILY 06/24/23 06/27/24 History omega 5-qxk-wgv-fish oil 1,000 mg 2 cap PO DAILY 06/24/23 06/27/24 History (120 mg-180 mg) capsule (Fish Oil) paroxetine HCl 10 mg tablet (Paxil) 10 mg PO DAILY 06/24/23 06/27/24 History simvastatin 20 mg tablet 20 mg PO DAILY 06/24/23 06/27/24 History vitamin E 200 unit capsule 200 unit PO DAILY 06/24/23 06/27/24 History gabapentin 300 mg capsule 300 mg PO TID #90 caps 10/31/24 Rx gabapentin 300 mg capsule 300 mg PO TID #90 caps 11/28/24 Rx Allergies Allergy/AdvReac Type Severity Reaction Status Date / Time aspirin Allergy Mild unkown Verified 06/27/24 07:55 Exam Constitutional Documenting provider has reviewed patient's vital signs: yes Common normals: no apparent distress, oriented x3, healthy appearing, alert and well nourished General appearance: cooperative HENMT Common normals: normocephalic, hearing grossly normal bilaterally and moist oral mucous membranes Head and scalp: normocephalic Eye Common normals: PERRL Pupil: PERRL Neck & C-Spine Common normals: full ROM General: normal visual inspection Cervical spine: pain with cervical ROM, cervical spine tenderness and paracervical muscle tenderness Chest Common normals: inspection of chest normal Respiratory Common normals: normal respiratory effort, no retractions and no use of accessory muscles Extremity Left upper extremity: shoulder joint Other: left shoulder limited ROM, unable to lift arm above head, weakness to LUE 4/5 sensation intact posterior lift off positive, positive apley scratch test Neuro Common normals: oriented x3, CN's II-XII intact bilaterally, moves all extremities, no focal motor deficits, no sensory deficits noted and deep tendon reflexes 2+ bilaterally Sensorium/orientation: alert Motor exam: strength 5/5 throughout and no movement abnormalities noted Psych Common normals: mental status grossly normal, thought process normal, cooperative, affect normal, speech normal and activity/motor behavior normal Speech: normal speech Thought process: normal thought process Results Additional Findings Additional findings: If on a controlled substance or opioids, I have checked an [place] report on this patient and there are no aberrancies noted in the prescribing history.??If on a controlled substance or opioid a drug screen was completed and reviewed within the last year, and if there has not been a drug screen completed we ordered one today to monitor higher risk, state monitored pain medication use. As part of providing excellent, safe, comprehensive care, the following was completed at our patient's visit: 1. A medication reconciliation and review to ensure accurate knowledge of current/active medications, including asking our patients to inform us about any aobo-hfc-[id number] medications or herbal remedies/nutritional supplements/alternative remedies. 2. A review to specifically ensure our patients have had annual screening for screening for depression, screening for tobacco use, and screening for unhealthy alcohol use. For concerning screenings had a discussion with the patient, provided patient education, and recommended follow-up with primary care provider when appropriate. If patient noted with a risk of falling, they received education on strength, gait, and balance training to prevent future risk of falling. Assessment and Plan Assessment and Plan (1) Left shoulder pain: (2) Rotator cuff tear arthropathy of left shoulder: (3) Osteoarthritis of left shoulder: (4) Subacromial bursitis of left shoulder joint: Plan left shoulder injection with Dr May continue current medications continue HEP as tolerated f/u 2 weeks after injection
== END 2025-02-16 11:01 | disposition home or self-care (01) ==
LOC: PM 11:00
PROVIDERS: PCP Family Medicine; Visit Provider Nurse Practitioner
DX: M25.512 Pain in left shoulder (principal); M75.102 Unspecified rotator cuff tear or rupture of left shoulder, not specified as traumatic; M19.012 Primary osteoarthritis, left shoulder; M75.52 Bursitis of left shoulder
CPT/HCPCS: G0463

== ENCOUNTER 2025-03-06 15:15 | Outpatient (OUT) | payer MEDICARE, SELFPAY ==
--- NOTE | 2025-03-06 16:16 | PM.CN ---
Consult Note: HPI Data of Consult Patient: known to practice within the last 3 years Consult date: 03/06/25 Requesting Physician: Chikis May MD Primary Care Provider: Jose Guadalupe Villafuerte MD Consult Narrative Reason for consult: neck, left arm, left shoulder pain Narrative: 64yof who presents for assessment. notes persistence of pain in left shoulder and would like to proceed with left shoulder injection. however, has noted increasing neck pain with radiation into left upper extremity. cervical xr significant for multilevel degenerative changes with suggestion of narrowing in lower cervical spine. has continued in a series of provider directed home exercises >6 weeks, without benefit. uses pain medicine as needed. denies adverse med side effects. cc:: CC: Chikis May MD Review of Systems ROS Status of ROS 10 or more systems reviewed and unremarkable except as noted in history and below Meds Home Medications and Allergies Home Medications ?Medication ?Instructions ?Recorded ?Confirmed ?Type acetaminophen 325 mg tablet 650 mg PO Q6H PRN pain 06/22/23 06/27/24 History (Tylenol) nabumetone 500 mg tablet 500 mg PO BID 06/22/23 06/27/24 History oxycodone 5 mg capsule 5 mg PO BID 06/22/23 06/27/24 History TUMERIC QDAY 06/24/23 History Vitamin B-Complex QDAY 06/24/23 History alendronate 35 mg tablet 35 mg PO QWEEK 06/24/23 06/27/24 History allopurinol 100 mg tablet 100 mg PO BID 06/24/23 06/27/24 History ascorbate calcium (vitamin C) 500 500 mg PO DAILY 06/24/23 06/27/24 History mg tablet bromelains 375 mg capsule mg PO 06/24/23 History calcium carb-ergocalciferol (vit tab PO 06/24/23 History D2) 600 mg calcium-200 unit tablet carvedilol 25 mg tablet (Coreg) 25 mg PO Q12H 06/24/23 06/27/24 History cholecalciferol (vitamin D3) 50 50 mcg PO DAILY 06/24/23 06/27/24 History mcg (2,000 unit) tablet (D3 DOTS) cinnamon bark 500 mg capsule 1,000 mg PO DAILY 06/24/23 06/27/24 History (Cinnamon) coenzyme Q10 100 mg capsule (Co 200 mg PO DAILY 06/24/23 06/27/24 History Q-10) cranberry extract 500 mg capsule 500 mg PO DAILY 06/24/23 06/27/24 History evening primrose oil 500 mg capsule 500 mg PO DAILY 06/24/23 06/27/24 History famotidine 20 mg tablet (Pepcid) 20 mg PO DAILY 06/24/23 06/27/24 History gabapentin 300 mg capsule 300 mg PO TID 06/24/23 06/27/24 History garlic 1,000 mg capsule (garlic 1,000 mg PO DAILY 06/24/23 06/27/24 History oil) ginkgo biloba 120 mg tablet 120 mg PO DAILY 06/24/23 06/27/24 History glucosamine sulfate 1,000 mg 1,000 mg PO DAILY 06/24/23 06/27/24 History capsule grape seed extract 50 mg capsule 100 mg PO DAILY 06/24/23 06/27/24 History green tea leaf extract 250 mg 500 mg PO QDAY 06/24/23 06/27/24 History capsule (Green Tea) hydrochlorothiazide 25 mg tablet 25 mg PO DAILY 06/24/23 06/27/24 History loratadine 10 mg capsule 10 mg PO DAILY 06/24/23 06/27/24 History losartan 100 mg tablet 100 mg PO DAILY 06/24/23 06/27/24 History melatonin 10 mg tablet 20 mg PO DAILY 06/24/23 06/27/24 History multivitamin 1 tab PO DAILY 06/24/23 06/27/24 History omega 5-imd-eun-fish oil 1,000 mg 2 cap PO DAILY 06/24/23 06/27/24 History (120 mg-180 mg) capsule (Fish Oil) paroxetine HCl 10 mg tablet (Paxil) 10 mg PO DAILY 06/24/23 06/27/24 History simvastatin 20 mg tablet 20 mg PO DAILY 06/24/23 06/27/24 History vitamin E 200 unit capsule 200 unit PO DAILY 06/24/23 06/27/24 History gabapentin 300 mg capsule 300 mg PO TID #90 caps 10/31/24 Rx gabapentin 300 mg capsule 300 mg PO TID #90 caps 11/28/24 Rx Allergies Allergy/AdvReac Type Severity Reaction Status Date / Time aspirin Allergy Mild unkown Verified 06/27/24 07:55 Exam Narrative Exam Narrative: Psych-alert and oriented x 3.? Attentive and appropriate, constitutionally normal, displays normal mood and affect per situation.? There are no obvious deficits in memory, reasoning, or intellect.? Skin-no obvious rashes, bruising, or erythema noted to the patient's area of pain.? Extremities-upper extremities are warm with minimal edema and palpable pulses. Cervical- tenderness to palpation noted in the cervical spine and paraspinal musculature.? Pain is elicited with flexion, extension, and lateral rotation of the cervical spine.? Range of motion is diminished due to pain. Facet loading maneuvers are negative.? Strength-unremarkable and within normal limits with the exception to the left biceps. Sensory-no notable sensory deficits in the bilateral upper extremities to touch or pinprick with the exception to decreased sensation to the left C5, 6, 7 dermatomal distribution.? Shoulder - tender to palpation in left shoulder. Pain with abduction, external rotation of left shoulder. Coordination remains intact.? Gait remains non-antalgic. Assessment and Plan Assessment and Plan (1) Osteoarthritis of left shoulder: Qualifiers: Osteoarthritis type: primary Qualified Code(s): M19.012 - Primary osteoarthritis, left shoulder (2) Cervical stenosis of spinal canal: Plan 64yof who presents for assessment. failed conservative measures, as noted. imaging reviewed, as noted. given persistence of left shoulder pain, will proceed with previously ordered left shoulder injection. she is in agreement. in terms of neck and left arm pain, given symptoms and xr findings, will order cervical mri without contrast for further info. she is in agreement. meds reviewed, no changes. follow up after imaging. procedure: left shoulder injection medications: bupivacaine 0.25% 4cc, depomedrol 40mg I explained the details of the procedure to the patient including the risks, benefits, and alternatives.? We had an informed discussion.? The patient verbalized understanding and signed the consent form.? All questions were answered appropriately.? A time-out was performed.? After obtaining a comfortable seated position, the skin overlying the left shoulder was prepped with alcohol 3 times.? The sulcus between the head of the humerus and the acromion was identified.? The needle was inserted in a sterile manner 2 cm inferior and medial to the posterolateral corner of the acromion and was directed anteriorly toward the coracoid process. The contents of the syringe were gently injected without any resistance into the joint space after negative aspiration for blood or other bodily fluids.? The needle was removed and pressure was applied at the injection site to decrease the incidence of ecchymosis and hematoma formation.? A sterile bandage was applied.
== END 2025-03-06 15:16 | disposition home or self-care (01) ==
PROVIDERS: PCP Family Medicine; Visit Provider Anesthesiology
DX: M19.012 Primary osteoarthritis, left shoulder (principal); M48.02 Spinal stenosis, cervical region
CPT/HCPCS: 20610

== ENCOUNTER 2025-03-28 13:56 | Outpatient (OUT) | payer MEDICARE, SELFPAY ==
--- NOTE | 2025-03-28 14:01 | MR_ITS ---
The [address] [address] Patient Name: BLANCA BUTLER MRN: [id number] date: 1960 Sex: F Assigned Patient Location: MRI Current Patient Location: MRI Accession/Order Number: [id number] Exam Date: 03/28/2025 16:09 Report Date: 03/28/2025 16:15 At the request of: DAVID WHITE MD Procedure: MR cervical spine wo con MR cervical spine wo con 03/28/2025 2:57 PM SIGNS AND SYMPTOMS: Chronic neck pain PROTOCOL: Multiplanar multisequence MR images of the cervical spine without IV contrast COMPARISON: None. FINDINGS: The bones of the cervical spine are in anatomic alignment. There is preservation of vertebral body heights. There is moderate disc height loss at C5-C6 and C6-C7. There is mild disc height loss at C3-C4 and C4-C5. There is accompanying Modic type III endplate sclerosis. The marrow signal is within normal limits. There is nonspecific T2 hyperintense signal in the posterior aspect of the cervical cord in the midline at C2, C3, and C4. No epidural or paraspinous fluid collection is appreciated. The visualized paraspinous soft tissues are within normal limits. The prevertebral soft tissues are within normal limits. At C2-C3: There is a normal disc, central canal, and neural foramen. At C3-C4: There is a broad-based disc bulge with facet hypertrophy and uncovertebral joint spurring contributing to moderate left and mild right neural foraminal narrowing. There is mild spinal canal narrowing. At C4-C5: There is uncovertebral joint spurring and facet hypertrophy left greater than right. There is severe left and mild right neural foraminal narrowing with mild spinal canal narrowing. At C5-C6: There is a broad-based disc bulge with uncovertebral joint spurring and facet hypertrophy. There is severe right and moderate to severe left neural foraminal narrowing with moderate spinal canal narrowing. At C6-C7: There is a broad-based disc bulge with facet and uncovertebral joint degenerative change. There is moderate right and mild left neural foraminal narrowing with mild spinal canal narrowing. At C7-T1: There is a normal disc, central canal, and neural foramen. MR/MR cervical spine wo con IMPRESSION: There is nonspecific T2 hyperintense signal in the posterior aspect of the cervical cord in the midline at C2, C3, and C4. This may represent chronic myelomalacia. At C4-C5: There is uncovertebral joint spurring and facet hypertrophy left greater than right. There is severe left and mild right neural foraminal narrowing with mild spinal canal narrowing. At C5-C6: There is a broad-based disc bulge with uncovertebral joint spurring and facet hypertrophy. There is severe right and moderate to severe left neural foraminal narrowing with moderate spinal canal narrowing. Lesser degrees of degenerative changes are noted as above. Impression dictated by: Bi Saucedo M.D. 03/28/2025 4:15 PM Dictation Location: [place] [address] Electronically authenticated by: [id number] Y Date: 03/28/2025 16:15
== END 2025-03-28 13:57 | disposition home or self-care (01) ==
LOC: MRI 13:56
PROVIDERS: PCP Family Medicine; Visit Provider Anesthesiology
DX: M48.02 Spinal stenosis, cervical region (principal); M50.30 Other cervical disc degeneration, unspecified cervical region
CPT/HCPCS: 72141

== ENCOUNTER 2025-04-13 14:19 | Outpatient (OUT) | payer MEDICARE, SELFPAY ==
--- OUTSIDE RECORDS SUMMARY | 2025-04-13 14:21 | XMS_ITS | Clinical Summary ---
Author Organization [facility] Address [address] [place] [address] Care Team Providers Care Six Color Press Operator Name Role Phone Joanna Wyman NP Unavailable [phone] Jose Guadalupe Villafuerte MD Primary Care Provider [phone] Shaikh PIA Chambers Unavailable [phone] Allergies Active Allergy Reactions Criticality Noted Date Comments Aspirin Rash Low 04/30/2023 Medications Cranberry 500 MG capsule as directed Orally Active cholecalciferol (Vitamin D-3) 25 MCG (1000 UT) capsule 1 capsule 1 (one) time each day at the same time. Active cinnamon 500 MG capsule as directed Orally Active coenzyme Q-10 100 MG capsule as directed Orally Active omega-3 (FISH OIL) 300 MG capsule Fish Oil Activ e loratadine (Claritin) 10 MG tablet 1 (one) time each day at the same time. Active Garlic 2 MG capsule Garlic Active Ginkgo Biloba 40 MG tablet Ginko Biloba Active Grape Seed Extract 30 MG capsule Grape Seed Extract Active Pediatric Multivitamins-Fl (MultiVitamin + Fluoride) 0.25 MG chewable tablet Multivitamin A ctive B Complex Vitamins (VITAMIN B COMPLEX 100 IJ) Vitamin B Complex Active calcium carbonate 1500 (600 Ca) MG tablet every 12 (twelve) hours. Active Evening Paterson Oil 1000 MG capsule as directed Orally Active famotidine (Pepcid) 20 MG tablet 1 (one) time each day at the same time. Active Glucosamine Sulfate 1000 MG capsule 1 (one) time each day at the same time. Active Turmeric Curcumin 500 MG capsule as directed Orally Active alpha tocopherol (Vitamin E) 400 units capsule 1 capsule 1 (one) time each day at the same time. Active gabapentin (Neurontin) 300 MG capsule Take 300 mg by mouth in the morning and 300 mg in the evening and 300 mg before bedtime. 08/23/20 23 Active albuterol HFA 90 mcg/act inhalerIndications :Suspected chronic obstructive pulmonary disease based on initial evaluation ([facility]) Inhale 2 puffs every 4 (four) hours if needed for wheezing 8.5 g 3 06/14/20 24 Active hydroCHLOROthiazid e (HYDRODiuril) 25 MG tabletIndications: Primary hypertension Take 1 tablet (25 mg) by mouth in the morning. 90 tablet 1 09/13/20 24 Active simvastatin (Zocor) 20 MG tabletIndications: Mixed hyperlipidemia Take 1 tablet (20 mg) by mouth 1 (one) time each day at the same time 90 tablet 3 12/14/19 25 Active losartan (Cozaar) 100 MG tabletIndications: Primary hypertension Take 1 tablet (100 mg) by mouth Daily 12/21/19 25 Active alendronate (Fosamax) 35 MG tabletIndications: Osteoporosis without current pathological fracture, unspecified osteoporosis type Take 1 tablet (35 mg) by mouth every 7 (seven) days Take in the morning with a full glass of water, on an empty stomach, and do not take anything else by mouth or lie down for the next 30 min. 12 tablet 3 12/21/19 25 Active allopurinol (Zyloprim) 100 MG tabletIndications: Hyperuricemia Take 1 tablet (100 mg) by mouth in the morning and 1 tablet (100 mg) before bedtime. 180 tablet 01/11/20 25 Active carvedilol (Coreg) 25 MG tabletIndications: Primary hypertension Take 1 tablet (25 mg) by mouth in the morning and 1 tablet (25 mg) in the evening. Take with meals. 180 tablet 01/11/20 25 Active PARoxetine (Paxil) 20 MG tabletIndications: MDD (major depressive disorder), recurrent episode, mild Take 0.5 tablets (10 mg) by mouth Daily 30 tablet 5 01/24/20 25 Active Fluticasone-Salmet adalberto (Advair Diskus) 100-50 MCG/ACT aerosol powderIndications: Suspected chronic obstructive pulmonary disease based on initial evaluation ([facility]),Mild intermittent asthma without complication ([facility]) Inhale 1 puff Daily 60 each 2 03/06/20 25 Active oxyCODONE (Roxicodone) 5 MG immediate release tabletIndications: Chronic left shoulder pain,Chronic pain of left knee Take 1 tablet (5 mg) by mouth every 12 (twelve) hours if needed for moderate pain 60 tablet 03/28/20 25 025 Active nabumetone (Relafen) 500 MG tabletIndications: Chronic left shoulder pain,Chronic pain of left knee Take 1 tablet (500 mg) by mouth 2 (two) times a day as needed for mild pain 60 tablet 3 04/10/20 25 Active nabumetone (Relafen) 500 MG tabletIndications: Chronic left shoulder pain,Chronic pain of left knee Take 1 tablet (500 mg) by mouth 2 (two) times a day as needed for mild pain 60 tablet 3 12/14/19 25 025 Discontin ued(Reord er) oxyCODONE (Roxicodone) 5 MG immediate release tabletIndications: Chronic left shoulder pain,Chronic pain of left knee Take 1 tablet (5 mg) by mouth every 12 (twelve) hours if needed for moderate pain 60 tablet 02/24/20 25 025 Discontin ued(Reord er) Active Problems Problem Noted Date Diagnosed Date Prediabetes 12/20/2024 MDD (major depressive disorder), recurrent episo de, mild 12/20/2024 Assessment & Plan (12/20/2024 3:03 PM EDT): Symptoms controlled with paxil and continue. Encounter for long-term (current) use of medicat ions 12/20/2024 Class 1 obesity due to exces s calories with serious comorbidity and body mass index (BMI) of 30.0 to 30.9 in adult 12/20/2024 Assessment & Plan (12/20/2024 3:03 PM EDT): Weight loss indicated. Osteoporosis 12/20/2024 Assessment & Plan (12/20/2024 3:03 PM EDT): Repeat DEXA. Pre-operative clearance 03/15/2024 Assessment & Plan (03/31/2024 2:44 PM EDT): Patient is here for pre operative /surgical clearance. She is supposed to have left shoulder arthroplasty under [facility]. Date of surgery has not been finalized and she needs medical clearance to schedule surgery. She has hx of HTN, HLD but no known cardiac hx. Former smoker and quit in 2020. Her most recent surgery was in 2020 - she had hip replacement under [facility] and did not experience any complications or reports adverse effects of anesthesia. Denies CP, SOB, palpitations. She has poor functional status due to arthritis in multiple joints and can't walk long/exercise because of pain. Patient had ECHO 9/22 - Normal EF, no sig cardiac structural abnormality. Denies orthopnea/PND. No sig abnormality noted on pre op testing, EKG. Patient is at low risk of MACE and cleared to proceed for left shoulder arthroplasty under [facility]. Assessment & Plan (03/15/2024 3:40 PM EDT): Patient is here for pre operative /surgical clearance. She is supposed to have left shoulder arthroplasty under [facility]. Date of surgery has not been finalized and she needs medical clearance to schedule surgery. She has hx of HTN, HLD but no known cardiac hx. Former smoker and quit in 2020. Her most recent surgery was in 2020 - she had hip replacement under [facility] and did not experience any complications or reports adverse effects of anesthesia. Denies CP, SOB, palpitations. She has poor functional status due to arthritis in multiple joints and can't walk long/exercise because of pain. Patient had ECHO 9/22 - Normal EF, no sig cardiac structural abnormality. Denies orthopnea/PND. Pre op testing ordered for patient. Once pre op testing has been reviewed, we will send/fax our final decision/recommendation related to surgical risk. COPD (chronic obstructive pulmonary disease) 08/2024 Assessment & Plan (12/20/2024 3:03 PM EDT): Breathing unchanged and stop advair. Use albuterol PRN. Assessment & Plan (09/13/2024 3:25 PM EST): Former smoker, smoked for about 40 years. [...] Restriction. Continue Advair daily and albuterol PRN. Assessment & Plan (06/14/2024 3:28 PM EDT): Former smoker, smoked for about 40 years. Reports intermittent wheezing. No formal testing/diagnosis of obstructive lung disease. Albuterol as needed. Dr. Chambers ordered PFT's in March 2024- pt has still yet to complete. Reprinted order today. Assessment & Plan (03/15/2024 3:36 PM EDT): Former smoker, smoked for about 40 years. Reports intermittent wheezing. No formal testing/diagnosis of obstructive lung disease. Order PFTs. Albuterol as needed. Primary hypertension 09/08/2023 Assessment & Plan (12/20/2024 3:04 PM EDT): BP elevated today but normal at home. Continue medication and monitor PRN. Assessment & Plan (09/13/2024 3:26 PM EST): Currently taking Carvedilol 25mg Hydrochlorothiazide 25mg Losartan 100mg Checks BP at home; Averages on log are 100's 70's. Too tightly controlled. Will decrease Losartan to 50mg today. Denies orthostatic changes, dizziness, shortness of breath, swelling in extremities. Given BP log, advised pt to record BP and bring log back with them to next visit. Assessment & Plan (06/14/2024 3:18 PM EDT): Currently taking Carvedilol 25mg Hydrochlorothiazide 25mg Losartan 100mg Does not check BP at home; Denies orthostatic changes, dizziness, shortness of breath, swelling in extremities. Continue current regimen. Given BP log, advised pt to record BP and bring log back with them to next visit. Assessment & Plan (03/15/2024 3:34 PM EDT): At goal. C/w home meds. Has not gotten her labs done despite frequent reminders. Re ordered labs Assessment & Plan (12/10/2023 4:45 PM EST): At goal. C/w home meds. Patient did not get her labs done. Assessment & Plan (09/09/2023 1:10 PM EST): At goal. C/w home meds. Check labs. Rotator cuff arthropathy of left shoulder 2022 Assessment & Plan (12/20/2024 3:04 PM EDT): Pain tolerable with medication and continue. Assessment & Plan (06/14/2024 3:25 PM EDT): Work up revealed rotator cuff tear. Was referred to ortho, was told she needs shoulder replacement. Stopped going after she decided she did not want surgery. Would like referral to a different ortho for second opinion. Is seeing Dr. Ingram @ [facility]. Is getting injections and taking Gabapentin. Will discuss with them oxycodone. Assessment & Plan (12/10/2023 4:48 PM EST): Work up revealed rotator cuff tear. She was referred to orthopedic on previous occasions and I am not quite sure why she has not followed up yet. Assessment & Plan (09/09/2023 1:08 PM EST): Rotator cuff tear. Following Orthopedic. Surgery recommended. Patient asked to follow up with Orthopedic surgery. Encounter for Medicare annual wellness exam 02/2023 Assessment & Plan (09/09/2023 1:18 PM EST): Recommended to get Influenza, Pneumococcal vaccine. Mammogram ordered. Colonoscopy in 2018 Dyslipidemia 09/08/2023 Assessment & Plan (09/13/2024 3:25 PM EST): Currently taking Simvastatin 20mg Denies any myalgias. Continue current regimen. Assessment & Plan (06/14/2024 3:27 PM EDT): Currently taking Simvastatin 20mg Denies any myalgias. Most recent Lipid Panel in 03/2024 WNL Continue current regimen. Assessment & Plan (03/15/2024 3:36 PM EDT): Check labs, on simvastatin Assessment & Plan (12/10/2023 4:48 PM EST): On simvastatin. Lipid panel ordered last appt - did not get her labs. Assessment & Plan (09/09/2023 1:10 PM EST): On simvastatin. Check Lipid panel. Nontraumatic complete tear of left rotator cuff 09/08/2023 Assessment & Plan (03/15/2024 3:35 PM EDT): Scheduled for shoulder replacement. She does not have a date for surgery and needs pre operative clearance first. Poorly controlled pain, associated weakness and decreased ROM. Assessment & Plan (12/10/2023 4:46 PM EST): She still has not seen an Orthopedic surgeon for it. She reports poorly controlled pain and inability to move her left arm. I reiterated to her that she could have been pain free by now if she had seen an orthopedic as advised on previous occasions. Patient referred to dr hicks. She verbalized understanding and will follow up Assessment & Plan (09/09/2023 1:09 PM EST): Needs surgery. Asked patient to call Orthopedic Primary osteoarthritis of left knee 04/30/2023 Assessment & Plan (12/20/2024 3:04 PM EDT): Continued pain and will need replacement. Follow with ortho. Primary osteoarthritis of right hip 04/30/2023 Primary osteoarthritis of right knee 04/30/2023 Resolved Problems Problem Noted Date Diagnosed Date Resolved Date Symptoms of upper respiratory infection (URI) 06/14/20 24 12/20/2024 Assessment & Plan (06/14/2024 3:09 PM EDT): URI Symptoms: Runny nose Sinus congestion Post [...] BREATH, GO TO THE NEAREST EMERGENCY DEPARTMENT. Chronic pain of left knee 09/08/2023 Assessment & Plan (06/14/2024 3:24 PM EDT): Chronic left knee pain due to degenerative arthritis, uses a walker to ambulate. Pain is persistent with periods of worsening pain. She is using nabumetone along with oxycodone as needed for pain. Last xrays done in 2020. Ordered new xrays today. Will refer to ortho. Assessment & Plan (12/10/2023 4:47 PM EST): Chronic left knee pain due to degenerative arthritis, uses a walker to ambulate. Pain is persistent with periods of worsening pain. She is using nabumetone along with oxycodone as needed for pain. 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 04/30/2023 12/20/2024 Other chronic pain 04/30/2023 Osteoarthritis of both knees 04/30/2023 12/20/2024 Hip pain 01/08/2021 12/20/2024 Asthma 12/20/2024 Encounters Date Type Department Care Team Description 04/10/2025 Refill [facility] [address] [place] [address] Jose Guadalupe Villafuerte MD Chronic left shoulder pain; Chronic pain of left knee 03/28/2025 Clinisync Result Encounter [facility] Department Unsolicited Provider, Generic External Data 03/28/2025 Refill [facility] [address] [place] [address] Jose Guadalupe Villafuerte MD Chronic left shoulder pain; Chronic pain of left knee 03/20/2025 Refill [facility] [address] [place] [address] Jose Guadalupe Villafuerte MD 03/07/2025 Abstract [facility] [address] [place] [address] Jose Guadalupe Villafuerte MD 03/06/2025 Refill [facility] [address] [place] [address] Jose Guadalupe Villafuerte MD Suspected chronic obstructive pulmonary disease based on initial evaluation ([facility]); Mild intermittent asthma without complication (HCC) 02/23/2025 [facility]ill [facility] [address] [place] [address] Jose Guadalupe Villafuerte MD Chronic left shoulder pain; Chronic pain of left knee 01/25/2025 [facility]ill [facility] [address] [place] [address] Jose Guadalupe Villafuerte MD Chronic left shoulder pain; Chronic pain of left knee 01/24/2025 Results Follow-Up [facility] [address] [place] [address] Jose Guadalupe Villafuerte MD UTI symptoms (Primary Dx) 01/24/2025 Clinisync Result Encounter [facility] External Department Unsolicited Jose Guadalupe Villafuerte MD 01/23/2025 Refill [facility] [address] [place] [address] Jose Guadalupe Villafuerte MD MDD (major depressive disorder), recurrent episode, mild 01/17/2025 Refill [facility] [address] [place] [address] Jose Guadalupe Villafuerte MD from Last 3 Months Immunizations Immunization Administration Dates Next Due Hep B, Adolescent or Pediatric 12/24/2010,2010,06/28/2010 Influenza, injectable, quadr ivalent, preservative free 10/01/2022 Tdap 10/20/2022 Zoster, Recombinant 10/20/2022 Family History Medical History Relation Name Comments Heart disease Father Breast cancer Mother Hypertension Mother Lung cancer Mother Relation Name Status Comments Father (Age 70) due t o SD Mother Social History Tobacco Use Types Packs/Day Years Used Date Smoking Tobacco: Former Cigarettes 1 40 0 12/03/1980 - 12/03/2020 Passive Smoke Exposure: Past Smokeless Tobacco: Never Tobacco Cessation:Counseling Given: Not Answered Comments:Last smoked 1-5 years Alcohol Use Standard Drinks/Week Comments Not Currently 0 (1 standard drink = 0.6 oz pur e alcohol) quit 10 years ago Humiliation, Afraid, Rape, and Kick questionnair e Answer Date Recorded Within the last year, have y ou been afraid of your partner or ex-partner? No 09/08/2023 Within the last year, have y ou been humiliated or emotionally abused in other ways by your partner or ex-partner? No Within the last year, have y ou been kicked, hit, slapped, or otherwise physically hurt by your partner or ex-partner? No 09/08/2023 Within the last year, have y ou been raped or forced to have any kind of sexual activity by your partner or ex-partner? No 09/08/2023 Social Connection and Isolat ion Panel [NHANES] Answer Date Recorded In a typical week, how many times do you talk on the phone with family, friends, or neighbors? Patient declined 09/08/2023 How often do you get togethe r with friends or relatives? Once a week 09/08/2023 How often do you attend chur ch or christian services? More than 4 times per year 09/08/2023 Do you belong to any clubs o r organizations such as cheondoism groups, unions, fraternal or athletic groups, or school groups? Yes 09/08/2023 How often do you attend meet ings of the clubs or organizations you belong to? More than 4 times per year 09/08/2023 Are you , , di vorced, , never , or living with a partner? 09/08/2023 AUDIT-C Answer Date Recorded Q1: How often do you have a drink containing alcohol? Never 09/08/2023 Q2: How many drinks containi ng alcohol do you have on a typical day when you are drinking? Patient does not drink Q3: How often do you have si x or more drinks on one occasion? Never 09/08/2023 Overall Financial Resource Strain (CARDIA) Answe r Date Recorded How hard is it for you to pa y for the very basics like food, housing, medical care, and heating? Not very hard 09/08/2023 PHQ-2 Answer Date Recorded Patient Health Questionnaire-2 Score 0 06/14/2024 [facility] - Occupational Stress Questionnaire Answer Date Recorded Do you feel stress - tense, restless, nervous, or anxious, or unable to sleep at night because your mind is troubled all the time - these days? Not at all 09/08/2023 Exercise Vital Sign Answer Date Recorde d On average, how many days pe r week do you engage in moderate to strenuous exercise (like a brisk walk)? 0 days 09/08/2023 On average, how many minutes do you engage in exercise at this level? 0 min 09/08/2023 Hunger Vital Sign Answer Date Recorded Within the past 12 months, y ou worried that your food would run out before you got the money to buy more. Never true 09/08/20 23 Within the past 12 months, t he food you bought just didn't last and you didn't have money to get more. Never true 09/08/2023 PRAPARE - Transportation Answer Date Re corded In the past 12 months, has l ack of transportation kept you from medical appointments or from getting medications? No 02/2023 In the past 12 months, has l ack of transportation kept you from meetings, work, or from getting things needed for daily living? No 09/08/2023 Housing Stability Vital Sign Answer Nico e Recorded In the last 12 months, was t here a time when you were not able to pay the mortgage or rent on time? No 09/08/2023 In the last 12 months, how many places have you lived? 1 09/08/2023 In the last 12 months, was t here a time when you did not have a steady place to sleep or slept in a correction (including now)? No 09/08/2023 Comments No Sex and Gender Information Value Date Recorded Sex Assigned at Not on file Legal Sex Female 8:27 PM EDT Gender Identity Not on file Sexual Orientation Not on file Last Filed Vital Signs Vital Sign Reading Time Taken Comments Blood Pressure 180/94 12/20/2024 2:25 PM EDT Pulse 95 12/20/2024 2:25 PM EDT Temperature 36.6 C (97.8 F) 12/20/2024 2:25 PM EDT Respiratory Rate 18 12/20/2024 2:25 PM EDT Oxygen Saturation 94% 12/20/2024 2:25 PM EDT Inhaled Oxygen Concentration - - Weight 81.6 kg (180 lb) 12/20/2024 2:25 PM EDT Height 162.6 cm (5' 4 ) 12/20/2024 2:25 PM EDT Body Mass Index 30.9 12/20/2024 2:25 PM EDT Plan of Treatment Upcoming Encounters Date Type Department Care Team (Late st Contact Info) Description 05/03/2025 1:45 PM EDT [facility] [address] [place] [address] Jose Guadalupe Villafuerte MD [address] [place] [address] Health Maintenance Due Date Last Done Comments CT Colonography 1960 FIT-DNA 1960 FIT 1960 FOBT 1960 Lung Cancer Screening Shared Decision Making 1960 Sigmoidoscopy 1960 Pneumococcal Vaccine: 65+ Ye ars (1 of 2 - PCV) 1977 Medicare Annual Wellness (AWV) 09/08/2024 09/08/2023 Mammogram 01/07/2025 01/08/2024, 09/08/2023 Influenza Vaccine (#1) 2025 10/01/2022 Colonoscopy 10/05/2027 10/05/2017 Colorectal Cancer Screening 10/05/2027 Procedures Procedure Name Priority Date/Time Associated Diagnosis Comments MR CERVICAL SPINE WO CONTRAST 03/28/2025 4:15 PM EDT ALL THYROID STIM HORMONE Routine 01/24/2025 12:55 PM EDT ALL LIPID PROFILE (FASTING) Routine 01/24/2025 12:55 PM EDT ALL BASIC METABOLIC PANEL Routine 01/24/2025 12:55 PM EDT HMHP LIVER PANEL Routine 01/24/2025 12:5 5 PM EDT MLR HEMOGLOBIN A1C Routine 01/24/2025 12 :55 PM EDT ALL CBC WITH AUTO DIFF Routine 12:55 PM EDT MM TOMOSYNTHESIS SCREENING BI 01/08/2024 11:52 AM EDT from Last 3 Months or Most Recently Relevant to Health Maintenance Results * MR cervical spine wo contrast (03/28/2025 4:15 PM EDT) Anatomical Region Laterality Modality Spine, C-spine Magnetic Resonan ce 03/28/2025 4:15 PM EDT Narrative 03/28/2025 4:18 PM EDT The [address] [address] Magnetic Resonance Report Signed Patient: BLANCA MOE MR#: [id number] : 1960 Acct:[id number] Age/Sex: 65 / F ADM Date: 03/28/25 Loc: MRI Attending Dr: Chikis May M.D. Ordering Physician: Chikis May M.D. Date of Service: 03/28/25 Procedure(s): MR cervical spine wo con Accession Number(s): [id number] cc: Chikis May M.D.; Jose Guadalupe Villafuerte M.D. [place] [address] Patient Name: BLANCA MOE MRN: [facility]:[id number] date: 1960 Sex: F Assigned Patient Location: MRI Current Patient Location: MRI Accession/Order Number: [id number] Exam Date: 03/28/2025 16:09 Report Date: 03/28/2025 16:15 At the request of: CHIKIS MAY MD Procedure: MR cervical spine wo con MR cervical spine wo con 03/28/2025 2:57 PM SIGNS AND SYMPTOMS: Chronic neck pain PROTOCOL: Multiplanar multisequence MR images of the cervical spine without IV contrast COMPARISON: None. FINDINGS: The bones of the cervical spine are in anatomic alignment. There is preservation of vertebral body heights. There is moderate disc height loss at C5-C6 and C6-C7. There is mild disc height loss at C3-C4 and C4-C5. There is accompanying Modic type III endplate sclerosis. The marrow signal is within normal limits. There is nonspecific T2 hyperintense signal in the posterior aspect of the cervical cord in the midline at C2, C3, and C4. No epidural or paraspinous fluid collection is appreciated. The visualized paraspinous soft tissues are within normal limits. The prevertebral soft tissues are within normal limits. At C2-C3: There is a normal disc, central canal, and neural foramen. At C3-C4: There is a broad-based disc bulge with facet hypertrophy and uncovertebral joint spurring contributing to moderate left and mild right neural foraminal narrowing. There is mild spinal canal narrowing. At C4-C5: There is uncovertebral joint spurring and facet hypertrophy left greater than right. There is severe left and mild right neural foraminal narrowing with mild spinal canal narrowing. At C5-C6: There is a broad-based disc bulge with uncovertebral joint spurring and facet hypertrophy. There is severe right and moderate to severe left neural foraminal narrowing with moderate spinal canal narrowing. At C6-C7: There is a broad-based disc bulge with facet and uncovertebral joint degenerative change. There is moderate right and mild left neural foraminal narrowing with mild spinal canal narrowing. At C7-T1: There is a normal disc, central canal, and neural foramen. MR/MR cervical spine wo con IMPRESSION: There is nonspecific T2 hyperintense signal in the posterior aspect of the cervical cord in the midline at C2, C3, and C4. This may represent chronic myelomalacia. At C4-C5: There is uncovertebral joint spurring and facet hypertrophy left greater than right. There is severe left and mild right neural foraminal narrowing with mild spinal canal narrowing. At C5-C6: There is a broad-based disc bulge with uncovertebral joint spurring and facet hypertrophy. There is severe right and moderate to severe left neural foraminal narrowing with moderate spinal canal narrowing. Lesser degrees of degenerative changes are noted as above. Impression dictated by: Bi Saucedo M.D. 03/28/2025 4:15 PM Dictation Location: [place] [address] Electronically authenticated by: [id number] Y Date: 03/28/2025 16:15 Dictated By: Bi aSucedo M.D. 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 Ordering Physician: Chikis May M.D. Date of Service: 03/28/25 Procedure(s): MR cervical spine wo con Accession Number(s): [id number] cc: Chikis May M.D.; Jose Guadalupe Villafuerte M.D. [place] [address] Patient Name: BLANCA MOE MRN: [facility]:[id number] date: 1960 Sex: F Assigned Patient Location: MRI Current Patient Location: MRI Accession/Order Number: [id number] Exam Date: 03/28/2025 16:09 Report Date: 03/28/2025 16:15 At the request of: CHIKIS MAY MD Procedure: MR cervical spine wo con MR cervical spine wo con 03/28/2025 2:57 PM SIGNS AND SYMPTOMS: Chronic neck pain PROTOCOL: Multiplanar multisequence MR images of the cervical spinewithout IV contrast COMPARISON: None. FINDINGS: The bones of the cervical spine are in anatomic alignment. Thereis preservation of vertebral body heights. There is moderate disc heightloss at C5-C6 and C6-C7. There is mild disc height loss at C3-C4 and C4-C5.There is accompanying Modic type III endplate sclerosis. The marrow signal iswithin normal limits. There is nonspecific T2 hyperintense signal in theposterior aspect of the cervical cord in the midline at C2, C3, and C4. No epiduralor paraspinous fluid collection is appreciated. The visualized paraspinoussoft tissues are within normal limits. The prevertebral soft tissues are within normal limits. At C2-C3: There is a normal disc, central canal, and neural foramen. At C3-C4: There is a broad-based disc bulge with facet hypertrophy and uncovertebral joint spurring contributing to moderate left and mild right neural foraminal narrowing. There is mild spinal canal narrowing. At C4-C5: There is uncovertebral joint spurring and facet hypertrophy left greater than right. There is severe left and mild right neural foraminal narrowing with mild spinal canal narrowing. At C5-C6: There is a broad-based disc bulge with uncovertebral jointspurring and facet hypertrophy. There is severe right and moderate to severe left neural foraminal narrowing with moderate spinal canal narrowing. At C6-C7: There is a broad-based disc bulge with facet and uncovertebraljoint degenerative change. There is moderate right and mild left neuralforaminal narrowing with mild spinal canal narrowing. At C7-T1: There is a normal disc, central canal, and neural foramen. MR/MR cervical spine wo con IMPRESSION: There is nonspecific T2 hyperintense signal in the posterior aspect of the cervical cord in the midline at C2, C3, and C4. This may representchronic myelomalacia. At C4-C5: There is uncovertebral joint spurring and facet hypertrophy left greater than right. There is severe left and mild right neural foraminal narrowing with mild spinal canal narrowing. At C5-C6: There is a broad-based disc bulge with uncovertebral jointspurring and facet hypertrophy. There is severe right and moderate to severe left neural foraminal narrowing with moderate spinal canal narrowing. Lesser degrees of degenerative changes are noted as above. Impression dictated by: Bi Saucedo M.D. 03/28/2025 4:15 PM Dictation Location: [place] [address] Electronically authenticated by: [id number] Y Date: 6:15 Dictated By: Bi Saucedo M.D. Signed By:03/28/25 1618 DD/ 14 TD/TT: Cylinder Press Operator Apprentice: us Generic External Data Provider IMG MRI PROCEDURE S Final Result * MLR HEMOGLOBIN A1C (01/24/2025 12:55 PM EDT) Pathologist [facility] [place] GLYCOHEMOGLOBIN A1C 5.6 4.5 - 6.2 % [facility] Comment: ADA RECOMMENDED LIMIT 4.0 - 6.0 ADA THERAPEUTIC TARGET < 7.0 ACTION SUGGESTED > 7.0 ESTIMATED AVERAGE GLUCOSE 114 mg/dL TB 01/24/2025 12:5 5 PM EDT 01/24/2025 12:56 PM EDT Narrative CLINISYNC - 01/24/2025 1:37 PM EDT Jose Guadalupe Villafuerte MD CLINISYNC Final Result [facility]INMYKEL [facility] * HP LIVER PANEL (01/24/2025 12:55 PM EDT) BILIRUBIN TOTAL 0.7 0.2 - 1.0 mg/dL TB BILIRUBIN DIRECT 0.1 0.0 - 0.2 mg/dL TBH ASPARTATE AMINO TRANSFERASE 19 15 - 37 U/L TBH ALANINE AMINOTRANSFERASE 28 14 - 59 U/L TBH ALKALINE PHOSPHATASE 53 46 - 116 U/L TBH TOTAL PROTEIN 7.3 6.4 - 8.2 g/dL TBH ALBUMIN LEVEL 3.6 3.4 - 5.0 g/dL TBH GLOBULIN 3.7 g/dL TBH ALBUMIN GLOBULIN RATIO 1.0 TBH 01/24/2025 12:5 5 PM EDT 01/24/2025 12:56 PM EDT Narrative CLINISYNC - 01/24/2025 1:48 PM EDT Jose Guadalupe Villafuerte MD CLINISYPALOMO Final Result [facility] * ALL THYROID STIM HORMONE (01/24/2025 12:55 PM EDT) THYROID STIMULATING HORMONE 0.508 0.358 - 3.740 uIU/mL TB 01/24/2025 12:5 5 PM EDT 01/24/2025 12:56 PM EDT Narrative CLINISYNC - 01/24/2025 1:48 PM EDT Jose Guadalupe MARSHALLISYPALOMO Final Result [facility] * (ABNORMAL) ALL LIPID PROFILE (FASTING) (01/24/2025 12:55 PM EDT) TRIGLYCERIDES 173(H) <=150 mg/dL TBH CHOLESTEROL 177 <=200 mg/dL TB HDL CHOLESTEROL 53 40 - 60 mg/dL TB Comment: > or =60 mg/dl - LOW CARDIOVASCULAR RISK <40 mg/dl - HIGH CARDIOVASCULAR RISK LDL CHOLESTEROL CALCULATED 90.0 mg/dL TB Comment: <100 mg/dl OPTIMAL 100-129 mg/dl NEAR OR ABOVE OPTIMAL 130-159 mg/dl BORDERLINE HIGH 160-189 mg/dl HIGH >190 mg/dl VERY HIGH VLDL CHOLESTEROL 34.6 mg/dL TB CHOL HDL RATIO 3.3 TB Comment: 3.3 - 4.4 LOW RISK 4.4 - 7.1 AVERAGE RISK 7.1 - 11.0 MODERATE RISK >11.0 HIGH RISK 01/24/2025 12:5 5 PM EDT 01/24/2025 12:56 PM EDT Narrative CORIENC - 01/24/2025 1:48 PM EDT us Jose Guadalupe Villafuerte MD CLINISYPALOMO Final Result [facility]NC TB * (ABNORMAL) ALL CBC WITH AUTO DIFF (01/24/2025 12:55 PM EDT) TB WBC 8.7 4.0 - 11.0 10 3/uL TBH TBH RBC 3.62(L) 4.20 - 5.40 10 6/uL TBH TBH HGB 11.9(L) 12.0 - 16.0 g/dL TBH TBH HCT 35.2(L) 36.0 - 48.0 % TBH TBH MCV 97.2 81.0 - 99.0 fL TBH TBH MCH 32.9 26.7 - 34.0 pg TBH TBH MCHC 33.8 29.9 - 35.2 g/dL TBH TBH RDW 13.2 11.0 - 15.0 % TBH TBH PLT 254 150 - 450 10 3/uL TBH TBH MPV 10.3 9.5 - 13.5 fL TBH NEUTROPHILS PERCENT AUTO 69.0 43.0 - 75.0 % TBH LYMPHOCYTES PERCENT AUTO 21.0 20.5 - 60.0 % TBH MONOCYTES PERCENT AUTO 7.6 1.7 - 12.0 % TBH TBH EO % 1.6 0.9 - 7.0 % TBH BASOPHILS PERCENT AUTO 0.5 0.2 - 2.0 % TBH IMMATURE GRANULOCYTES PCT AUTO 0.3 0.0 - 0.5 % TBH NEUTROPHILS ABSOLUTE AUTO 6.0 1.4 - 6.5 10 3/uL TBH LYMPHOCYTES ABSOLUTE AUTO 1.8 1.2 - 3.8 10 3/uL TBH MONOCYTES ABSOLUTE AUTO 0.7 0.3 - 0.8 10 3/uL TBH TBH EO # 0.1 0.0 - 0.7 10 3/uL TBH BASOPHILS ABSOLUTE AUTO 0.0 0.0 - 0.1 10 3/uL TBH IMMATURE GRANULOCYTES ABS AUTO 0.03 0.00 - 0.03 10 3/uL TBH 01/24/2025 12:5 5 PM EDT 01/24/2025 12:56 PM EDT Narrative CLINISYNC - 01/24/2025 1:04 PM EDT Jose Guadalupe MARSHALLISYPALOMO Final Result CLINISYNC TBH * ALL BASIC METABOLIC PANEL (01/24/2025 12:55 PM EDT) SODIUM 140 136 - 145 mmol/L TBH POTASSIUM 3.7 3.5 - 5.1 mmol/L TBH CHLORIDE 100 98 - 107 mmol/L TBH CARBON DIOXIDE 31.2 21.0 - 32.0 mmol/L TBH ANION GAP 12.5 TBH GLUCOSE 85 74 - 106 mg/dL TBH BLOOD UREA NITROGEN 11.0 7.0 - 18.0 mg/dL TBH CREATININE 0.71 0.55 - 1.02 mg/dL TBH TBH EGFR-AF TONGAN >60 >=60 mL/min/1.7 3m 2 TBH TBH EGFR-NON AF TONGAN >60 >=60 mL/min/1.7 3m 2 TBH BUN CREATININE RATIO 15.5 TBH CALCIUM 9.5 8.5 - 10.1 mg/dL TBH 01/24/2025 12:5 5 PM EDT 01/24/2025 12:56 PM EDT Narrative CLINISYNC - 01/24/2025 1:48 PM EDT Jose Guadalupe MARSHALLISYPALOMO Final Result [facility]NC [facility] * MM TOMOSYNTHESIS SCREENING BI (01/08/2024 11:52 AM EDT) Anatomical Region Laterality Modality Other 01/08/2024 11:5 2 AM EDT Narrative 01/08/2024 11:53 [place] [address] Mammography Report Signed Patient: BLANCA MOE MR#: [id number] : 1960 Acct:[id number] Age/Sex: 63 / F ADM Date: 01/07/24 Loc: MAMMO Attending Dr: Shaikh Reyes Rader Ordering Physician: Shaikh Dior Chambers Results: Date of Service: 01/07/24 Follow Up: Procedure(s): MM tomosynthesis screening BI Accession Number(s): [id number] cc: Shaikh Dior Chambers Patient Name: BLANCA MOE MR#: [id number] : 1960 Exam Date: 01/07/2024 Ordering Doctor: Shaikh Joan Kim RADIOLOGY REPORT PROCEDURE: MM TOMOSYNTHESIS SCREENING BI COMPARISON: MG MAMM SARITHA SCRN W CAD DIG, 08/25/2013. MG MAMM SARITHA SCRN W CAD DIG, 08/24/2008. MG MAMM SARITHA DIAG W CAD DIG, 10/01/2007. INDICATIONS: screening Calculator Name NCI Breast Cancer Risk Assessment Tool 5 Year Breast Cancer Risk 3.10% Lifetime Breast Cancer Risk 11.40% Personal Breast Cancer No Personal Ovarian Cancer No Treatments None Family Cancers Mother with breast cancer at age 50. LOCATION: [facility] BREAST COMPOSITION: Scattered areas fibroglandular density. FINDINGS: DIAGNOSTIC CATEGORY 2--BENIGN FINDING: RIGHT BREAST: No significant suspicious finding. No significant change has occurred. LEFT BREAST: No significant suspicious finding. Scattered benign-appearing nodules are present. No suspicious change has occurred. RECOMMENDATIONS: ROUTINE MAMMOGRAM AND CLINICAL EVALUATION IN 12 MONTHS. PLEASE NOTE: A NORMAL MAMMOGRAM DOES NOT EXCLUDE THE POSSIBILITY OF BREAST CANCER. A CLINICALLY SUSPICIOUS PALPABLE LUMP SHOULD BE BIOPSIED. Dictated by: Jovanni Millan M.D. on 01/08/2024 at 11:49 Approved by: Jovanni Millan M.D. on 01/08/2024 at 11:52 Dictated By: Jovanni Millan M.D. Signed By: 01/08/24 1153 DD/ 1152 TD/TT: Cylinder Press Operator Apprentice: Procedure Note Radiology, Radiologist, MD - 01/08/2024 [place] [address] Mammography Report Signed Patient: BLANCA MOE LMR#: [id number] : 8Acct:[id number] Age/Sex: 63 / FADM Date: 01/07/24 Loc: MAMMO Attending Dr: Shaikh Reyes Rader Ordering Physician: Shaikh Dior ChambersResults: Date of Service: 01/07/24Follow Up: Procedure(s): MM tomosynthesis screening BI Accession Number(s): [id number] cc: Shaikh Dior Chambers Patient Name: BLANCA MOE MR#: [id number] : 1960 Exam Date: 01/07/2024 Ordering Doctor: Shaikh Joan Kim RADIOLOGY REPORT PROCEDURE: MM TOMOSYNTHESIS SCREENING BI COMPARISON: MG MAMM SARITHA SCRN W CAD DIG, 08/25/2013. MG MAMM SARITHA SCRNW CAD DIG, 08/24/2008. MG MAMM SARITHA DIAG W CAD DIG, 10/01/2007. INDICATIONS: screening Calculator Name NCI Breast Cancer Risk Assessment Tool 5 Year Breast Cancer Risk 3.10% Lifetime Breast Cancer Risk 11.40% Personal Breast Cancer No Personal Ovarian Cancer No Treatments None Family Cancers Mother with breast cancer at age 50. LOCATION: [facility] BREAST COMPOSITION: Scattered areas fibroglandular density. FINDINGS: DIAGNOSTIC CATEGORY 2--BENIGN FINDING: RIGHT BREAST: No significant suspicious finding. No significant changehas occurred. LEFT BREAST: No significant suspicious finding. Scatteredbenign-appearing nodules are present. No suspicious change has occurred. RECOMMENDATIONS: ROUTINE MAMMOGRAM AND CLINICAL EVALUATION IN 12 MONTHS. PLEASE NOTE: A NORMAL MAMMOGRAM DOES NOT EXCLUDE THE POSSIBILITY OFBREAST CANCER. A CLINICALLY SUSPICIOUS PALPABLE LUMP SHOULD BE BIOPSIED. Dictated by: Jovanni Millan M.D. on 01/08/2024 at 11:49 Approved by: Jovanni Millan M.D. on 01/08/2024 at 11:52 Dictated By: Jovanni Millan M.D. Signed By:01/08/24 1153 DD/ 1152 TD/TT: Cylinder Press Operator Apprentice: Shaikh Reyes [facility] Final Result from Last 3 Months or Most Recently Relevant to Health Maintenance Insurance [employer] Care Teams Six Color Press Operator Relationship Specialty Start Date End Date Jose Guadalupe Villafuerte MD [address] [place] [phone] PCP - General Family Medicine 08/04/24 Shaikh Chambers MD [address] [place] [address] PCP - Yoanna [place] 10/05/24 Joanna Wyman NP Nurse Practitioner Family Medicine 05/12/24
--- OUTSIDE RECORDS SUMMARY | 2025-04-13 14:21 | XMS_ITS | Encounter Summary ---
Author Organization [facility] Address [address] [place] [address] Care Team Providers Care Welder Fitter Arc Name Role Phone Jose Guadalupe Villafuerte MD Primary Care Provider [phone] Joanna Wyman NP Unavailable [phone] Unallocated, Noms Provider Primary Care Provi royce Jose Guadalupe Villafuerte MD Primary Care Provider [phone] Shaikh PIA Chambers Unavailable [phone] Encounter Details Date Type Department Care Team (Late st Contact Info) Description 05/24/2024 Abstract [facility] [address] [place] [phone] Joanna Wyman NP Social History Tobacco Use Types Packs/Day Years Used Date Smoking Tobacco: Former Cigarettes 1 40 0 12/03/1980 - 12/03/2020 Passive Smoke Exposure: Past Smokeless Tobacco: Never Comments:Last smoked 1-5 yea rs Alcohol Use Standard Drinks/Week Comments Not Currently [...] 09/08/2023 How often do you attend chur or jewish services? More than 4 times per year 09/08/2023 Do you belong to any clubs o r organizations such as religion groups, unions, fraternal or athletic groups, or [...] Date Recorded Patient Health Questionnaire-2 Score 0 03/15/2024 [facility] - Occupational Stress [...] place to sleep or slept in a snf (including now)? No 09/08/2023 Comments Unknown Sex and Gender Information Value Date Recorded Sex Assigned at Not on file Legal Sex Female 8:27 PM EDT Gender Identity Not on file Sexual Orientation Not on file documented as of this encounter Plan of Treatment Upcoming Encounters Date Type Department Care Team (Late st Contact Info) Description 05/03/2025 1:45 PM EDT [facility] [address] [place] [phone] Jose Guadalupe Villafuerte MD [address] [place] [address] documented as of this encounter Visit Diagnoses Not on filedocumented in this encounter Care Teams Welder Fitter Arc Relationship Specialty Start Date End Date Jose Guadalupe Villafuerte MD [address] [place] [address] PCP - General Family Medicine 05/12/24 07/24/24 Unallocated, Evie Nicholson MD [address] [place] [address] PCP - General Family Medicine 07/25/24 08/03/24 Jose Guadalupe Villafuerte MD [address] [place] [address] PCP - General Family Medicine 08/04/24 Shaikh Chambers MD [address] [place] [address] PCP - Yoanna FERNANDEZ 10/05/24 Joanna Wyman NP [address] [place] [address] Nurse Practitioner Family Medicine 05/12/24 documented as of this encounter
--- OUTSIDE RECORDS SUMMARY | 2025-04-13 14:21 | XMS_ITS | Clinical Summary ---
Author Organization [facility] Address [id number] [address] [place] [address] Care Team Providers Care Impregnating Tank Operator Name Role Phone Unavailable Primary Care Provider Unavailabl e Social History Tobacco Use Types Packs/Day Years Used Date Smoking Tobacco: Never Assessed Childcare Answer Date Recorded Childcare Unknown 03/16/2019 Employment Answer Date Recorded Employment Unknown 03/16/2019 Comments Unknown Sex and Gender Information Value Date Recorded Sex Assigned at Not on file Legal Sex Female 11:24 AM EDT Gender Identity Not on file Sexual Orientation Not on file Plan of Treatment Not on file Medical Devices Not on file
--- OUTSIDE RECORDS SUMMARY | 2025-04-13 14:21 | XMS_ITS | Encounter Summary ---
Author Organization [facility] Address [address] [place] [address] Care Team Providers Care Administration Vice President Name Role Phone Shaikh PIA Chambers Primary Care Provider [phone] Shaikh PIA Chambers Primary Care Provider [phone] Jose Guadalupe Villafuerte MD Primary Care Provider [phone] Joanna Wyman ASSISTANT PROFESSOR OF EDUCATION Unavailable [phone] Unallocated, Tamys Provider Primary Care Provi royce Jose Guadalupe Villafuerte MD Primary Care Provider [phone] Shaikh PIA Chambers Unavailable [phone] Encounter Details Date Type Department Care Team (Late st Contact Info) Description 08/20/2023 Abstract [facility] [address] [place] [address] Celine Bedoya ASSISTANT PROFESSOR OF EDUCATION Social History Tobacco Use Types Packs/Day Years Used Date Smoking Tobacco: Former Cigarettes Smokeless Tobacco: Never Tobacco Cessation:Counseling Given: Not Answered Comments:Last smoked 1-5 years Alcohol Use Standard Drinks/Week Comments Not Currently 0 (1 standard drink = 0.6 oz pur e alcohol) Comments Unknown Sex and Gender Information Value Date Recorded Sex Assigned at Not on file Legal Sex Female 8:27 PM EDT Gender Identity Not on file Sexual Orientation Not on file documented as of this encounter Plan of Treatment Upcoming Encounters Date Type Department Care Team (Late Contact Info) Description 05/03/2025 1:45 PM EDT Office Visit [facility] [address] [place] [address] Jose Guadalupe Villafuerte MD [address] [place] [address] documented as of this encounter Visit Diagnoses Not on filedocumented in this encounter Care Teams Administration Vice President Relationship Specialty Start Date End Date Shaikh Chambers MD PCP - General Internal Medicine 05/04/23 12/09/23 Shaikh Chambers MD [address] [place] [address] PCP - General Internal Medicine 12/10/23 05/11/24 Jose Guadalupe Villafuerte MD [address] [place] [address] PCP - General Family Medicine 05/12/24 07/24/24 Unallocated, Evie Nicholson MD [address] [place] [address] PCP - General Family Medicine 07/25/24 08/03/24 Jose Guadalupe Villafuerte MD [address] [place] [address] PCP - General Family Medicine 08/04/24 Shaikh Chambers MD [address] [place] [address] PCP - Yoanna FERNANDEZ 10/05/24 Joanna Wyman NP [address] [place] [address] Nurse Practitioner Family Medicine 05/12/24 documented as of this encounter
--- OUTSIDE RECORDS SUMMARY | 2025-04-13 14:22 | XMS_ITS | Clinical Summary ---
Demographics Address [address] [place] [address] Home Phone Mobile Phone Preferred Language en Marital Status Single Confucianist Affiliation Unknown Race White Ethnic Group Not or Lati no Author Organization [facility] Address [address] [place] [address] Care Team Providers Care Curtain Mender Name Role Phone Unavailable Primary Care Provider Unavailabl e Social History Tobacco Use Types Packs/Day Years Used Date Smoking Tobacco: Never Assessed Comments Unknown Sex and Gender Information Value Date Recorded Sex Assigned at Not on file Legal Sex Female 12:14 AM EDT Gender Identity Not on file Sexual Orientation Not on file Last Filed Vital Signs Vital Sign Reading Time Taken Comments Blood Pressure - - Pulse - - Temperature - - Respiratory Rate - - Oxygen Saturation - - Inhaled Oxygen Concentration - - Weight 71.2 kg (157 lb) 03/07/2021 2:23 PM EDT Height 167.6 cm (5' 6 ) 03/07/2021 2:23 PM EDT Body Mass Index 25.34 03/07/2021 2:23 PM EDT Plan of Treatment Not on file
--- OUTSIDE RECORDS SUMMARY | 2025-04-13 14:22 | XMS_ITS | Encounter Summary ---
Author Organization [facility] Address [address] [facility] [place] [address] Care Team Providers Care Scale Tank Operator Name Role Phone Shaikh PIA Chambers Primary Care Provider [phone] Jose Guadalupe Villafuerte MD Primary Care Provider [phone] Joanna Wyman NP Unavailable [phone] Unallocated, Evie Provider Primary Care Provi royce Jose Guadalupe Villafuerte MD Primary Care Provider [phone] Shaikh PIA Chambers Unavailable [phone] Reason for Visit * Reason Comments Med Refill Encounter Details Date Type Department Care Team (Late st Contact Info) Description 01/12/2024 [facility]ill [facility] [address] [place] [address] Shaikh Chambers MD [address] [place] [address] Hyperuricemia (Primary Dx) Social History Tobacco Use Types Packs/Day Years [...] How often do you attend chur or islam services? More than 4 times per year 09/08/2023 Do you belong to any clubs o r organizations such as confucianist groups, unions, fraternal or athletic groups, or [...] Answer Date Recorded Patient Health Questionnaire-2 Score 1 12/10/2023 [facility] - Occupational Stress [...] place to sleep or slept in a detention (including now)? No 09/08/2023 Comments Unknown Sex and Gender Information Value Date Recorded Sex Assigned at Not on file Legal Sex Female 8:27 PM EDT Gender Identity Not on file Sexual Orientation Not on file documented as of this encounter Miscellaneous Notes * Telephone Encounter - Shaikh Reyes MD - 01/12/2024 12:04 PM EDT Approving, but needs appt for additional refills. documented in this encounter Plan of Treatment Upcoming Encounters Date Type Department Care Team (Late st Contact Info) Description 05/03/2025 1:45 PM EDT Office Visit [facility] [address] [place] [address] Jose Guadalupe Villafuerte MD [address] [place] [address] documented as of this encounter Visit Diagnoses Diagnosis Hyperuricemia- Primary Other abnormal blood chemistry documented in this encounter Care Teams Scale Tank Operator Relationship Specialty Start Date End Date Shaikh Chambers MD [address] [place] [address] PCP - General Internal Medicine 12/10/23 05/11/24 Jose Guadalupe Villafuerte MD [address] [place] [address] PCP - General Family Medicine 05/12/24 07/24/24 Unallocated, Evie Nicholson MD [address] [place] [address] PCP - General Family Medicine 07/25/24 08/03/24 Jose Guadalupe Villafuerte MD [address] [place] [address] PCP - General Family Medicine 08/04/24 Shaikh Chambers MD [address] [place] [address] PCP - Yoanna FERNANDEZ 10/05/24 Joanna Wyman NP [address] [place] [address] Nurse Practitioner Family Medicine 05/12/24 documented as of this encounter
--- OUTSIDE RECORDS SUMMARY | 2025-04-13 14:22 | XMS_ITS | Encounter Summary ---
Author Organization [facility] Address [address] [place] [address] Care Team Providers Care Brim Stretching Machine Operator Name Role Phone Shaikh PIA Chambers Primary Care Provider [phone] Jose Guadalupe Villafuerte MD Primary Care Provider [phone] Joanna Wyman NP Unavailable [phone] Unallocated, Noms Provider Primary Care Provi royce Jose Guadalupe Villafuerte MD Primary Care Provider [phone] Shaikh PIA Chambers Unavailable [phone] Encounter Details Date Type Department Care Team (Late st Contact Info) Description 03/15/2024 Clinisync Result Encounter [facility] External Department Unsolicited Shaikh Chambers MD [address] [place] [address] Social History Tobacco Use Types Packs/Day Years [...] How often do you attend chur or baptist services? More than 4 times per year 09/08/2023 Do you belong to any clubs o r organizations such as anglican groups, unions, fraternal or athletic groups, or [...] Recorded Patient Health Questionnaire-2 Score 0 03/15/2024 [facility] [place] [facility] - Occupational Stress [...] place to sleep or slept in a fpc (including now)? No 09/08/2023 Comments Unknown Sex and Gender Information Value Date Recorded Sex Assigned at Not on file Legal Sex Female 8:27 PM EDT Gender Identity Not on file Sexual Orientation Not on file documented as of this encounter Functional Status * Over the past 2 weeks, how often have you been bothered by any of the following problems? Question Answer Date of Assessment Author Little interest or pleasure in doing things Not at all 03/15/2024 1:50 PM EDT Tara Correa M A Feeling down, depressed, or hopeless Not at all 03/15/2024 1:50 PM EDT Tara Correa M A Patient Health Questionnaire -2 Score 0 03/15/2024 1:50 PM EDT Tara Correa M A documented as of this encounter Plan of Treatment Upcoming Encounters Date Type Department Care Team (Late st Contact Info) Description 05/03/2025 1:45 PM EDT Office Visit [facility] [address] [place] [address] Jose Guadalupe Villafuerte MD [address] [place] [address] documented as of this encounter Procedures Procedure Name Priority Date/Time Associated Diagnosis Comments ECG 12-LEAD 03/15/2024 3:29 PM EDT documented in this encounter Results * ECG 12-LEAD (03/15/2024 3:29 PM EDT) Anatomical Region Laterality Modality Other 03/15/2024 3:29 PM EDT Narrative 03/15/2024 9:12 PM EDT [address] [address] Electrocardiograph Report Signed Patient: BLANCA MOE MR#: [id number] : 1960 Acct:[id number] Age/Sex: 64 / F ADM Date: 03/15/24 Loc: CARD Attending Dr: Shaikh Reyes Rader Ordering Physician: Shaikh Dior Chambers Date of Service: 03/15/24 Procedure(s): ECG 12 lead Accession Number(s): [id number] cc: [facility] Test Date: 2024-03-15 Pat Name: BLANCA MOE Department: Room: - Gender: Female 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 Signed By:03/15/24211103/15/242111 DD/ 1529 TD/TT: Fashion Buying Internship: us Shaikh Reyes [facility] Final Result documented in this encounter Visit Diagnoses Not on filedocumented in this encounter Care Teams Brim Stretching Machine Operator Relationship Specialty Start Date End Date Shaikh Chambers MD [address] [place] [address] PCP - General Internal Medicine 12/10/23 05/11/24 Jose Guadalupe Villafuerte MD [address] [place] [address] PCP - General Family Medicine 05/12/24 07/24/24 Unallocated, Evie Nicholson MD [address] [facility] [place] [address] PCP - General Family Medicine 07/25/24 08/03/24 Jose Guadalupe Villafuerte MD [address] [place] [address] PCP - General Family Medicine 08/04/24 Shaikh Chambers MD [address] [place] [address] PCP - Yoanna FERNANDEZ 10/05/24 Joanna Wyman NP [address] [place] [address] Nurse Practitioner Family Medicine 05/12/24 documented as of this encounter
--- OUTSIDE RECORDS SUMMARY | 2025-04-13 14:22 | XMS_ITS | Encounter Summary ---
Author Organization [facility] Address [address] [place] [address] Care Team Providers Care Manager Strategic Name Role Phone Joanna Bryant NP Unavailable [phone] Unallocated, Evie Provider Primary Care Provi royce Jose Guadalupe Villafuerte MD Primary Care Provider [phone] Shaikh PIA Chambers Unavailable [phone] Encounter Details Date Type Department Care Team (Late st Contact Info) Description 08/01/2024 Clinisync Result Encounter [facility] External Department Unsolicited Joanna Bryant NP Social History Tobacco Use Types Packs/Day [...] How often do you attend chur or mosque services? More than 4 times per year [...] Recorded Patient Health Questionnaire-2 Score 0 06/[facility] Answer Date Recorded [...] place to sleep or slept in a senior care (including now)? No 09/08/2023 Comments Unknown Sex and Gender Information Value Date Recorded Sex Assigned at Not on file Legal Sex Female 8:27 PM EDT Gender Identity Not on file Sexual Orientation Not on file documented as of this encounter Plan of Treatment Upcoming Encounters Date Type Department Care Team (Late st Contact Info) Description 05/03/2025 1:45 PM EDT [facility] [address] [place] [address] Jose Guadalupe Villafuerte MD [address] [place] [address] documented as of this encounter Procedures Procedure Name Priority Date/Time Associated Diagnosis Comments XR KNEE STANDING BI 08/01/2024 6 :46 AM EDT documented in this encounter Results * XR KNEE STANDING BI (08/01/2024 6:46 AM EDT) Anatomical Region Laterality Modality Radiographic Sona ging 08/01/2024 6:46 AM EDT Narrative 08/01/2024 6:49 AM EDT [facility] [place] [id number] XRay Report Signed Patient: BLANCA MOE MR#: [id number] : 1960 Acct:[id number] Age/Sex: 64 / F ADM Date: 07/29/24 Loc: [facility] Attending Dr: JOANNA BRYANT Ordering Physician: JOANNA BRYANT Date of Service: 07/29/24 Procedure(s): XR knee standing BI Accession Number(s): [id number] cc: JOANNA BRYANT [place] [address] Patient Name: BLANCA MOE MRN: [id number] date: 1960 Sex: F Assigned Patient Location: [facility] Current Patient Location: Accession/Order Number: [id number] Exam Date: 07/29/2024 14:10 Report Date: 08/01/2024 06:46 At the request of: JOANNA BRYANT Procedure: XR knee standing BI EXAMINATION: XR [...] marked narrowing of the medial compartment with glsw-wx-xfpn articulation. Large periarticular degenerative osteophytes involving the medial and lateral compartments. SOFT TISSUES: Large flocculent calcification along superior medial margin of the knee joint; heterotopic bone formation versus loose body within the joint capsule. OTHER: Negative. XR/XR knee standing BI IMPRESSION: RIGHT CONCLUSION: Marked degenerative joint disease. LEFT CONCLUSION: Marked degenerative joint disease. Electronically authenticated by: JOVANNI MILLAN Date: 08/01/2024 06:46 Dictated By: Jovanni Millan M.D. Signed By: 08/01/2449 DD/ TD/TT: Development Trainer: Procedure Note Radiology, Radiologist, MD - 08/01/2024 [place] [address] XRay Report Signed Patient: BLANCA MOE LMR#: [id number] : 1960cct:[id number] Age/Sex: 64 / FADM Date: 07/29/24 Loc: [facility] Attending Dr: JOANNA BRYANT Ordering Physician: JOANNA BRYANT Date of Service: 07/29/24 Procedure(s): XR knee standing BI Accession Number(s): [id number] cc: JOANNA BRYANT The [place] [address] Patient Name: BLANCA MOE MRN: [id number] date: 1960 Sex: F Assigned Patient Location: [facility] Current Patient Location: Accession/Order Number: [id number] Exam Date: 07/29/2024 14:10 Report Date: 08/01/2024 06:46 At the request of: JOANNA BRYANT Procedure: XR knee standing BI EXAMINATION: XR knee standing BI HISTORY: Chronic Pain Of Left Knee M25.562 COMPARISON: No relevant comparison available. FINDINGS: RIGHT FINDINGS: BONES: A single frontal view demonstrates marked narrowing of the medialand lateral joint spaces with large periarticular degenerative osteophytes and subchondral sclerosis. SOFT TISSUES: No visible soft tissue swelling. OTHER: Negative. LEFT FINDINGS: BONES: A single frontal view demonstrates marked narrowing of the medial compartment with hekz-cz-tytk articulation. Large periarticulardegenerative osteophytes involving the medial and lateral compartments. SOFT TISSUES: Large flocculent calcification along superior medial marginof the knee joint; heterotopic bone formation versus loose body within thejoint capsule. OTHER: Negative. XR/XR knee standing BI IMPRESSION: RIGHT CONCLUSION: Marked degenerative joint disease. LEFT CONCLUSION: Marked degenerative joint disease. Electronically authenticated by: JOVANNI MILLAN Date: 08/01/2024 06:46 Dictated By: Jovanni Millan M.D. Signed By:08/01/2449 DD/ 0646 TD/TT: Development Trainer: Joanna Bryant ACOUSTICAL ENGINEER IMG XR PROCEDURES Final Result documented in this encounter Visit Diagnoses Not on filedocumented in this encounter Care Teams Manager Strategic Relationship Specialty Start Date End Date Unallocated, Noms Lyn, [address] [place] [address] PCP - General Family Medicine 07/25/24 08/03/24 Jose Guadalupe Villafuerte MD [address] [place] [address] PCP - General Family Medicine 08/04/24 Shaikh Chambers MD [address] [place] [address] PCP - Yoanna FERNANDEZ 10/05/24 Joanna Bryant NP Nurse Practitioner Family Medicine 05/12/24 documented as of this encounter
--- OUTSIDE RECORDS SUMMARY | 2025-04-13 14:22 | XMS_ITS | Encounter Summary ---
Author Organization [facility] Address [address] [place] [address] Care Team Providers Care Transportation Attendant Name Role Phone Shaikh PIA Chambers Primary Care Provider [phone] Jose Guadalupe Villafuerte MD Primary Care Provider [phone] Joanna Wyman NP Unavailable [phone] Unallocated, Noms Provider Primary Care Provi royce Jose Guadalupe Villafuerte MD Primary Care Provider [phone] Shaikh PIA Chambers Unavailable [phone] Encounter Details Date Type Department Care Team (Late st Contact Info) Description 01/08/2024 Clinisync Result Encounter [facility] External Department Unsolicited Shaikh Chambers MD [address] [place] [address] Social History Tobacco Use Types Packs/Day Years [...] How often do you attend chur or sabianist services? More than 4 times per year 09/08/2023 Do you belong to any clubs o r organizations such as yarsani groups, unions, fraternal or athletic groups, or [...] Recorded Patient Health Questionnaire-2 Score 1 12/10/2023 [facility] [place] [facility] Occupat ional Health - Occupational Stress [...] place to sleep or slept in a fdc (including now)? No 09/08/2023 Comments Unknown Sex and Gender Information Value Date Recorded Sex Assigned at Not on file Legal Sex Female 8:27 PM EDT Gender Identity Not on file Sexual Orientation Not on file documented as of this encounter Plan of Treatment Upcoming Encounters Date Type Department Care Team (Late st Contact Info) Description 05/03/2025 1:45 PM EDT Office Visit [facility] [address] [place] [address] Jose Guadalupe Villafuerte MD [address] [place] [address] documented as of this encounter Procedures Procedure Name Priority Date/Time Associated Diagnosis Comments MM TOMOSYNTHESIS SCREENING BI 01/08/2024 11:52 AM EDT documented in this encounter Results * MM TOMOSYNTHESIS SCREENING BI (01/08/2024 11:52 AM EDT) Anatomical Region Laterality Modality Other 01/08/2024 11:5 2 AM EDT Narrative 01/08/2024 11:53 [place] [address] Mammography Report Signed Patient: BLANCA MOE MR#: [id number] : 1960 Acct:[id number] Age/Sex: 63 / F ADM Date: 01/07/24 Loc: MAMMO Attending Dr: Shaikh Reyes Rader Ordering Physician: Shaikh Dior Chambers Results: Date of Service: 01/07/24 Follow Up: Procedure(s): MM tomosynthesis screening BI Accession Number(s): [id number] cc: Shaikh Dior Chambers Patient Name: BLANCA MOE MR#: [id number] : 1960 Exam Date: 01/07/2024 Ordering Doctor: [...] breast cancer at age 48. LOCATION: [facility] BREAST COMPOSITION: Scattered areas fibroglandular density. [...] Signed By: 01/08/24 1153 DD/ 1152 TD/TT: Tap Out Operator: Procedure Note Radiology, Radiologist, MD - 01/08/2024 [place] [address] Mammography Report Signed Patient: BLANCA MOE LMR#: [id number] : 1960cct:[id number] Age/Sex: 63 / FADM Date: 01/07/24 Loc: MAMMO Attending Dr: Shaikh Reyes Rader Ordering Physician: Shaikh Dior ChambersResults: Date of Service: 01/07/24Follow Up: Procedure(s): MM tomosynthesis screening BI Accession Number(s): [id number] cc: Shaikh Dior Chambers Patient Name: BLANCA MOE MR#: [id number] : 1960 Exam Date: 01/07/2024 Ordering Doctor: [...] breast cancer at age 48. LOCATION: [facility] BREAST COMPOSITION: Scattered areas fibroglandular density. [...] M.D. Signed By:01/08/24 1153 DD/ 1152 TD/TT: Tap Out Operator: us Shaikh Reyes [facility] Final Result documented in this encounter Visit Diagnoses Not on filedocumented in this encounter Care Teams Transportation Attendant Relationship Specialty Start Date End Date Shaikh Chambers MD [address] [place] [address] PCP - General Internal Medicine 12/10/23 05/11/24 Jose Guadalupe Villafuerte MD [address] [place] [address] PCP - General Family Medicine 05/12/24 07/24/24 Unallocated, Evie Nicholson MD [address] [place] [address] PCP - General Family Medicine 07/25/24 08/03/24 Jose Guadalupe Villafuerte MD [address] [place] [address] PCP - General Family Medicine 08/04/24 Shaikh Chambers MD [address] [place] [address] PCP - Yoanna FERNANDEZ 10/05/24 Joanna Wyman NP [address] [place] [address] Nurse Practitioner Family Medicine 05/12/24 documented as of this encounter
--- OUTSIDE RECORDS SUMMARY | 2025-04-13 14:22 | XMS_ITS | Encounter Summary ---
Author Organization [facility] Address [address] [place] [address] Care Team Providers Care Fishing Accessories Maker Name Role Phone Joanna Wyman NP Unavailable [phone] Jose Guadalupe Villafuerte MD Primary Care Provider [phone] Shaikh PIA Chambers Unavailable [phone] Reason for Visit * Reason Onset Date Comments Med Refill 04/10/2025 Encounter Details Date Type Department Care Team (Late st Contact Info) Description 04/10/2025 Refill [facility] [address] [place] [address] Jose Guadalupe Villafuerte MD [address] [place] [address] Chronic left shoulder pain; Chronic pain of left knee Social History Tobacco Use Types Packs/Day Years [...] How often do you attend chur or protestant services? More than 4 times per year 09/08/2023 Do you belong to any clubs o r organizations such as shinto groups, unions, [employer]afety [employer] or athletic groups, or school groups? Yes [...] Recorded Patient Health Questionnaire-2 Score 0 06/14/2024 [facility] - Occupational [...] place to sleep or slept in a penitentiary (including now)? No 09/08/2023 Comments No Sex and Gender Information Value Date Recorded Sex Assigned at Not on file Legal Sex Female 8:27 PM EDT Gender Identity Not on file Sexual Orientation Not on file documented as of this encounter Plan of Treatment Upcoming Encounters Date Type Department Care Team (Late st Contact Info) Description 05/03/2025 1:45 PM EDT Office Visit [facility] [address] [place] [address] Jose Guadalupe Villafuerte MD [address] [place] [address] documented as of this encounter Visit Diagnoses Diagnosis Chronic left shoulder pain Pain in joint, shoulder region Chronic pain of left knee documented in this encounter Care Teams Fishing Accessories Maker Relationship Specialty Start Date End Date Jose Guadalupe Villafuerte MD [address] [place] [address] PCP - General Family Medicine 08/04/24 Shaikh Chambers MD [address] [place] [address] PCP - Yoanna FERNANDEZ 10/05/24 Joanna Wyman NP Nurse Practitioner Family Medicine 05/12/24 documented as of this encounter
--- OUTSIDE RECORDS SUMMARY | 2025-04-13 14:22 | XMS_ITS | Encounter Summary ---
Author Organization [facility] Address [address] [facility] [place] [address] Care Team Providers Care Insurance Law Specialist Name Role Phone Joanna Wyman NP Unavailable [phone] Jose Guadalupe Villafuerte MD Primary Care Provider [phone] Shaikh PIA Chambers Unavailable [phone] Encounter Details Date Type Department Care Team (Late st Contact Info) Description 12/09/2024 Orders Only [facility] [address] [place] [address] Jose Guadalupe Villafuerte MD [address] [place] [address] Social History Tobacco Use Types Packs/Day Years [...] How often do you attend chur or anabaptism services? More than 4 times per year 09/08/2023 Do you belong to any clubs o r organizations such as mormon groups, unions, fraternal or athletic groups, or [...] Recorded Patient Health Questionnaire-2 Score 0 06/14/2024 [facility] Occupat ional Health - Occupational [...] place to sleep or slept in a alf (including now)? No 09/08/2023 Comments No Sex and Gender Information Value Date Recorded Sex Assigned at Not on file Legal Sex Female 8:27 PM EDT Gender Identity Not on file Sexual Orientation Not on file documented as of this encounter Plan of Treatment Upcoming Encounters Date Type Department Care Team (Late st Contact Info) Description 05/03/2025 1:45 PM EDT Office Visit [facility] [address] [place] [address] Jose Guadalupe Villafuerte MD [address] [place] [address] documented as of this encounter Visit Diagnoses Not on filedocumented in this encounter Care Teams Insurance Law Specialist Relationship Specialty Start Date End Date Jose Guadalupe Villafuerte MD [address] [place] [address] PCP - General Family Medicine 08/04/24 Shaikh Chambers MD [address] [place] [address] PCP - Yoanna FERNANDEZ 10/05/24 Joanna Wyman NP Nurse Practitioner Family Medicine 05/12/24 documented as of this encounter
--- OUTSIDE RECORDS SUMMARY | 2025-04-13 14:22 | XMS_ITS | Encounter Summary ---
Author Organization [facility] Address [address] [place] [address] Care Team Providers Care Portfolio Specialist Name Role Phone Shaikh PIA Chambers Primary Care Provider [phone] Jose Guadalupe Villafuerte MD Primary Care Provider [phone] Joanna Wyman NP Unavailable [phone] Unallocated, Noms Provider Primary Care Provi royce Jose Guadalupe Villafuerte MD Primary Care Provider [phone] Shaikh PIA Chambers Unavailable [phone] Encounter Details Date Type Department Care Team (Late st Contact Info) Description 03/28/2024 Clinisync Result Encounter [facility] External Department Unsolicited Provider, Generic External Data Social History Tobacco Use Types Packs/Day Years [...] How often do you attend chur or methodist services? More than 4 times per year 09/08/2023 Do you belong to any clubs o r organizations such as denominational groups, unions, fraternal [...] Recorded Patient Health Questionnaire-2 Score 0 03/15/2024 [facility] - [...] place to sleep or slept in a intermediate (including now)? No 09/08/2023 Comments Unknown Sex and Gender Information Value Date Recorded Sex Assigned at Not on file Legal Sex Female 8:27 PM EDT Gender Identity Not on file Sexual Orientation Not on file documented as of this encounter Plan of Treatment Upcoming Encounters Date Type Department Care Team (Late st Contact Info) Description 05/03/2025 1:45 PM EDT Office Visit [facility] [address] [place] [address] Jose Guadalupe Villafuerte MD [address] [place] [address] documented as of this encounter Procedures Procedure Name Priority Date/Time Associated Diagnosis Comments CT SHOULDER LT WO CON 03/28/2024 8:14 AM EDT documented in this encounter Results * CT SHOULDER LT WO CON (03/28/2024 8:14 AM EDT) Anatomical Region Laterality Modality Other 03/28/2024 8:14 AM EDT Narrative 03/28/2024 8:17 AM EDT The [address] [address] [address] Scan Report Signed Patient: BLANCA MOE MR#: [id number] : 1960 Acct:[id number] Age/Sex: 64 / F ADM Date: 03/25/24 Loc: CT Attending Dr: Fox Pascual M.D. Ordering Physician: Fox Pascual M.D. Date of Service: 03/25/24 Procedure(s): CT shoulder LT wo con Accession Number(s): [id number] cc: Shaikh Dior Chambers [address] [address] Patient Name: BLANCA MOE MRN: [id number] date: 1960 Sex: F Assigned Patient Location: CT Current Patient Location: Accession/Order Number: [id number] Exam Date: 03/25/2024 13:00 Report Date: 03/28/2024 08:14 At the request of: FOX PASCUAL Procedure: CT shoulder LT wo con EXAMINATION: CT shoulder LT wo con HISTORY: Rotator cuff arthropathy of left shoulder M12.812 COMPARISON: No relevant comparison available. TECHNIQUE: Multi-planar CT images were created without IV contrast. Dose reduction techniques were achieved by using automated exposure control and/or adjustment of mA and/or kV according to patient size and/or use of iterative reconstruction technique. FINDINGS: BONES: No acute fracture or dislocation. Severe degenerative changes of the glenohumeral joint with marked bony remodeling of the glenoid and humeral head. High riding humeral head with remodeling of the acromial process. Mild acromioclavicular joint osteoarthropathy with no significant subacromial spurring. Irregular humeral head contour with subchondral cystic changes SOFT TISSUES: Marked diffuse rotator cuff atrophy with fatty replacement of the supraspinatus and infraspinatus muscles. Minimal calcific density noted along the greater tuberosity likely representing calcific tendinitis of the teres minor tendon EFFUSION: None visible. OTHER: Negative. CT/CT shoulder LT wo con IMPRESSION: Chronic rotator cuff rupture with marked rotator cuff muscular atrophy and severe glenohumeral joint osteoarthritis Electronically authenticated by: MARIA ANTONIA CONRAD Date: 03/28/2024 08:14 Dictated By: Maria Antonia Conrad M.D. Signed By: 03/28/24816 DD/ 3 TD/TT: Sample Cutter: Procedure Note Radiology, Radiologist, MD - 03/28/2024 [place] [address] CT Scan Report Signed Patient: BLANCA MOE LMR#: [id number] : 1960cct:[id number] Age/Sex: 64 / FADM Date: 03/25/24 Loc: CT Attending Dr: Fox Pascual M.D. Ordering Physician: Fox Pascual M.D. Date of Service: 03/25/24 Procedure(s): CT shoulder LT wo con Accession Number(s): [id number] cc: Shaikh Dior Chambers [place] [address] Patient Name: BLANCA MOE MRN: [id number] date: 1960 Sex: F Assigned Patient Location: CT Current Patient Location: Accession/Order Number: [id number] Exam Date: 03/25/2024 13:00 Report Date: 03/28/2024 08:14 At the request of: FOX PASCUAL Procedure: CT shoulder LT wo con EXAMINATION: CT shoulder LT wo con HISTORY: Rotator cuff arthropathy of left shoulder M12.812 COMPARISON: No relevant comparison available. TECHNIQUE: Multi-planar CT images were created without IV contrast. Dose reduction techniques were achieved by using automated exposure controland/or adjustment of mA and/or kV according to patient size and/or use ofiterative reconstruction technique. FINDINGS: BONES: No acute fracture or dislocation. Severe degenerative changes ofthe glenohumeral joint with marked bony remodeling of the glenoid and humeral head. High riding humeral head with remodeling of the acromial process. Mild acromioclavicular joint osteoarthropathy with no significant subacromial spurring. Irregular humeral head contour with subchondral cystic changes SOFT TISSUES: Marked diffuse rotator cuff atrophy with fatty replacementof the supraspinatus and infraspinatus muscles. Minimal calcific density notedalong the greater tuberosity likely representing calcific tendinitis of theteres minor tendon EFFUSION: None visible. OTHER: Negative. CT/CT shoulder LT wo con IMPRESSION: Chronic rotator cuff rupture with marked rotator cuff muscular atrophy and severe glenohumeral joint osteoarthritis Electronically authenticated by: MARIA ANTONIA CONRAD Date: 03/28/2024 08:14 Dictated By: Maria Antonia Conrad M.D. Signed By:03/28/24816 DD/ 3 TD/TT: Sample Cutter: us Generic External Data Provider [facility] Final Result documented in this encounter Visit Diagnoses Not on filedocumented in this encounter Care Teams Portfolio Specialist Relationship Specialty Start Date End Date Shaikh Chambers MD [address] [place] [address] PCP - General Internal Medicine 12/10/23 05/11/24 Jose Guadalupe Villafuerte MD [address] [place] [address] PCP - General Family Medicine 05/12/24 07/24/24 Unallocated, Noms MD [facility] [place] [address] PCP - General Family Medicine 07/25/24 08/03/24 Jose Guadalupe Villafuerte MD [address] [place] [address] PCP - General Family Medicine 08/04/24 Shaikh Chambers MD [address] [place] [address] PCP - Yoanna FERNANDEZ 10/05/24 Joanna Wyman NP [address] [place] [address] Nurse Practitioner Family Medicine 05/12/24 documented as of this encounter
--- OUTSIDE RECORDS SUMMARY | 2025-04-13 14:22 | XMS_ITS | Encounter Summary ---
Author Organization [facility] Address [address] [place] [address] Care Team Providers Care Life Skills Specialist Name Role Phone Jose Guadalupe Villauferte MD Primary Care Provider [phone] Joanna Bryant NP Unavailable [phone] Unallocated, Noms Provider Primary Care Provi royce Jose Guadalupe Villafuerte MD Primary Care Provider [phone] Shaikh PIA Chambers Unavailable [phone] Encounter Details Date Type Department Care Team (Late st Contact Info) Description 07/12/2024 Clinisync Result Encounter [facility] External Department Unsolicited [...] How often do you attend chur or latter day services? More than 4 times per year 09/08/2023 Do you belong to any clubs o r organizations such as hindu groups, unions, fraternal or athletic groups, or [...] Recorded Patient Health Questionnaire-2 Score 0 06/14/2024 [facility] - [...] place to sleep or slept in a care home (including now)? No 09/08/2023 Comments Unknown Sex [...] Office Visit [facility] [address] [place] [address] Jose Guadalupe Villafuerte MD [address] [place] [address] documented as of this encounter Procedures Procedure Name Priority Date/Time Associated Diagnosis Comments RT PULMONARY FUNCTION TEST 07/12/2024 1:00 PM EDT documented in this encounter Results * RT PULMONARY FUNCTION TEST (07/12/2024 1:00 PM EDT) Anatomical Region Laterality Modality Other 07/12/2024 1:00 PM EDT Narrative 07/13/2024 6:34 AM EDT The [place] [id number] Respiratory Report Signed Patient: BLANCA MOE MR#: [id number] : 1960 Acct:[id number] Age/Sex: 64 / F ADM Date: 07/12/24 Loc: CARD Attending Dr: JOANNA BRYANT Ordering Physician: JOANNA BRYANT Date of Service: 07/12/24 Procedure(s): RT pulmonary function test Accession Number(s): [id number] cc: [facility] Test Date: 2024-07-12 Pat Name: BLANCA MOE Department: Room: - Gender: Female Sap Architect: Yanelis Heller RRT : 1960 Requested By: [id number] Order Number: [id number] Reading MD: Justin Marin Interpretive Statements Pulmonary function testing was completed according to ATS criteria. Findings were considered accurate and reproducible. Both pre- and post-bronchodilator values utilized for spirometry. Spirometry (based on pre-bronchodilator values): -FEV1/FVC: Normal @ 81% -FEV1: Reduced @ 74% -FVC: Mild-moderately reduced @ 70% -There is a positive bronchodilator response in FEV1 and FVC. Lung volumes by plethysmography (based on pre-bronchodilator values): -RV: Normal @ 97% -TLC: Normal @ 92% Diffusion capacity: -DLCO: Normal @ 85% when corrected for Hb 11.3g/dL Flow-volume loop: -Mild restrictive pattern Impressions: -There is a mild-moderate restrictive pattern on spirometry with normal lung volumes which can be seen in an obesity pattern (stated BMI 32.2). Diffusion capacity is normal. There is a positive bronchodilator response which may suggest an underlying obstructive process, such as asthma, obscurred by the restriction. Clinical correlation required. Electronically Signed On 07-13-2024 6:33:43 EDT by Justin Marin Dictated By: Justin Marin D.O. Signed By: 07/13/24 0634 07/13/24 0634 DD/ 1300 TD/TT: Handle Bender: Procedure Note Radiology, Radiologist, MD - 07/13/2024 [place] [address] Respiratory Report Signed Patient: BLANCA MOE LMR#: [id number] : 8Acct:[id number] Age/Sex: 64 / FADM Date: 07/12/24 Loc: CARD Attending Dr: JOANNA BRYANT Ordering Physician: JOANNA BRYANT Date of Service: 07/12/24 Procedure(s): RT pulmonary function test Accession Number(s): [id number] cc: [facility] Test Date: 2024-07-12 Pat Name: BLANCA MOE Department: Room: - Gender: Female Sap Architect: Yanelis Heller RRT : 1960 Requested By: 2137 Order Number: [id number] Reading MD: Justin Marin Interpretive Statements Pulmonary function testing was completed according to ATS criteria.Findings were considered accurate and reproducible. Both pre- andpost-bronchodilator values utilized for spirometry. Spirometry (based on pre-bronchodilator values): -FEV1/FVC: Normal @ 81% -FEV1: Reduced @ 74% -FVC: Mild-moderately reduced @ 70% -There is a positive bronchodilator response in FEV1 and FVC. Lung volumes by plethysmography (based on pre-bronchodilator values): -RV: Normal @ 97% -TLC: Normal @ 92% Diffusion capacity: -DLCO: Normal @ 85% when corrected for Hb 11.3g/dL Flow-volume loop: -Mild restrictive pattern Impressions: -There is a mild-moderate restrictive pattern on spirometry with normallung volumes which can be seen in an obesity pattern (stated BMI 32.2).Diffusion capacity is normal. There is a positive bronchodilator response which may suggest an underlying obstructive process, such as asthma, obscurred bythe restriction. Clinical correlation required. Electronically Signed On 07-13-2024 6:33:43 EDT by Justin Marin Dictated By: Justin Marin D.O. Signed By:07/13/24 0634 07/13/24 0634 DD/ 1300 TD/TT: Handle Bender: Joanna Bryant INDUSTRIAL HYGIENE ENGINEER [facility] Final Result documented in this encounter Visit Diagnoses Not on filedocumented in this encounter Care Teams Life Skills Specialist Relationship Specialty Start Date End Date Jose Guadalupe Villafuerte MD [address] [place] [address] PCP - General Family Medicine 05/12/24 07/24/24 Unallocated, Evie Nicholson MD [address] [place] [address] PCP - General Family Medicine 07/25/24 08/03/24 Jose Guadalupe Villafuerte MD [address] [place] [address] PCP - General Family Medicine 08/04/24 Shaikh Chambers MD [address] [place] [address] PCP - Yoanna FERNANDEZ 10/05/24 Joanna Bryant NP [address] [place] [address] Nurse Practitioner Family Medicine 05/12/24 documented as of this encounter
--- OUTSIDE RECORDS SUMMARY | 2025-04-13 14:22 | XMS_ITS | Encounter Summary ---
Author Organization [facility] Address [address] [place] [address] Care Team Providers Care Client Care Specialist Name Role Phone Joanna Wyman NP Unavailable [phone] Jose Guadalupe Villafuerte MD Primary Care Provider [phone] Shaikh PIA Chambers Unavailable [phone] Encounter Details Date Type Department Care Team (Late st Contact Info) Description 01/10/2025 Orders Only [facility] [address] [place] [address] Jose Guadalupe Villafuerte MD [address] [place] [address] Social History Tobacco Use Types Packs/Day Years [...] How often do you attend chur or christianity services? More than 4 times per year 09/08/2023 Do you belong to any clubs o r organizations such as scientology groups, unions, fraternal or athletic groups, or [...] Recorded Patient Health Questionnaire-2 Score 0 06/14/2024 [facility] - [...] a detention (including now)? No 09/08/2023 Comments No Sex and Gender Information Value Date Recorded Sex Assigned at Not on file Legal Sex Female 8:27 PM EDT Gender Identity Not on file Sexual Orientation Not on file documented as of this encounter Plan of Treatment Upcoming Encounters Date Type Department Care Team (Late st Contact Info) Description 05/03/2025 1:45 PM EDT Office Visit [facility] [address] [place] [address] Jose Guadalupe Villafuerte MD [address] [place] [address] documented as of this encounter Procedures Procedure Name Priority Date/Time Associated Diagnosis Comments DEXA BONE DENSITY Routine 01/10/2025 8:5 0 AM EDT documented in this encounter Results * DEXA bone density (01/10/2025 8:50 AM EDT) Anatomical Region Laterality Modality Body Radiographic Sona ging Jose Guadalupe Villafuerte MD IMG DXA PROCEDURES Final Result documented in this encounter Visit Diagnoses Not on filedocumented in this encounter Care Teams Client Care Specialist Relationship Specialty Start Date End Date Jose Guadalupe Villafuerte MD [address] [place] [address] PCP - General Family Medicine 08/04/24 Shaikh Chambers MD [address] [place] [address] PCP - Yoanna FERNANDEZ 10/05/24 Joanna Wyman NP Nurse Practitioner Family Medicine 05/12/24 documented as of this encounter
--- NOTE | 2025-04-13 14:55 | PM.CN ---
Consult Note: HPI Data of Consult Patient: known to practice within the last 3 years Consult date: 04/13/25 Requesting Physician: Deysi Zhou NP Primary Care Provider: Jose Guaadlupe Villafuerte MD Consult Narrative Reason for consult: neck, left arm, left shoulder pain Narrative: 65 year old female presents for evaluation and management of chronic neck and LUE pain. notes significant improvement in neck pain since last visit, however no improvement in left shoulder and LUE pain. pain today 6/10 sharping aching with numbness, tingling, weakness of left shoulder. pain increasing to 10/10 with lifting and ROM. has failed to benefit from cervical MBBs, left suprascapular/axillary RFA. recently underwent cervical MRI with results below. utilizing tylenol, nabumetone, and gabapentin with benefit without side effects. cc:: CC: Deysi Zhou NP Review of Systems ROS Status of ROS 10 or more systems reviewed and unremarkable except as noted in history and below Musculoskeletal Reports: extremity pain Meds Home Medications and Allergies Home Medications ?Medication ?Instructions ?Recorded ?Confirmed ?Type acetaminophen 325 mg tablet 650 mg PO Q6H PRN pain 06/22/23 06/27/24 History (Tylenol) nabumetone 500 mg tablet 500 mg PO BID 06/22/23 06/27/24 History oxycodone 5 mg capsule 5 mg PO BID 06/22/23 06/27/24 History TUMERIC QDAY 06/24/23 History Vitamin B-Complex QDAY 06/24/23 History alendronate 35 mg tablet 35 mg PO QWEEK 06/24/23 06/27/24 History allopurinol 100 mg tablet 100 mg PO BID 06/24/23 06/27/24 History ascorbate calcium (vitamin C) 500 500 mg PO DAILY 06/24/23 06/27/24 History mg tablet bromelains 375 mg capsule mg PO 06/24/23 History calcium carb-ergocalciferol (vit tab PO 06/24/23 History D2) 600 mg calcium-200 unit tablet carvedilol 25 mg tablet (Coreg) 25 mg PO Q12H 06/24/23 06/27/24 History cholecalciferol (vitamin D3) 50 50 mcg PO DAILY 06/24/23 06/27/24 History mcg (2,000 unit) tablet (D3 DOTS) cinnamon bark 500 mg capsule 1,000 mg PO DAILY 06/24/23 06/27/24 History (Cinnamon) coenzyme Q10 100 mg capsule (Co 200 mg PO DAILY 06/24/23 06/27/24 History Q-10) cranberry extract 500 mg capsule 500 mg PO DAILY 06/24/23 06/27/24 History evening primrose oil 500 mg capsule 500 mg PO DAILY 06/24/23 06/27/24 History famotidine 20 mg tablet (Pepcid) 20 mg PO DAILY 06/24/23 06/27/24 History gabapentin 300 mg capsule 300 mg PO TID 06/24/23 06/27/24 History garlic 1,000 mg capsule (garlic 1,000 mg PO DAILY 06/24/23 06/27/24 History oil) ginkgo biloba 120 mg tablet 120 mg PO DAILY 06/24/23 06/27/24 History glucosamine sulfate 1,000 mg 1,000 mg PO DAILY 06/24/23 06/27/24 History capsule grape seed extract 50 mg capsule 100 mg PO DAILY 06/24/23 06/27/24 History green tea leaf extract 250 mg 500 mg PO QDAY 06/24/23 06/27/24 History capsule (Green Tea) hydrochlorothiazide 25 mg tablet 25 mg PO DAILY 06/24/23 06/27/24 History loratadine 10 mg capsule 10 mg PO DAILY 06/24/23 06/27/24 History losartan 100 mg tablet 100 mg PO DAILY 06/24/23 06/27/24 History melatonin 10 mg tablet 20 mg PO DAILY 06/24/23 06/27/24 History multivitamin 1 tab PO DAILY 06/24/23 06/27/24 History omega 8-pyk-mcl-fish oil 1,000 mg 2 cap PO DAILY 06/24/23 06/27/24 History (120 mg-180 mg) capsule (Fish Oil) paroxetine HCl 10 mg tablet (Paxil) 10 mg PO DAILY 06/24/23 06/27/24 History simvastatin 20 mg tablet 20 mg PO DAILY 06/24/23 06/27/24 History vitamin E 200 unit capsule 200 unit PO DAILY 06/24/23 06/27/24 History gabapentin 300 mg capsule 300 mg PO TID #90 caps 10/31/24 Rx gabapentin 300 mg capsule 300 mg PO TID #90 caps 11/28/24 Rx Allergies Allergy/AdvReac Type Severity Reaction Status Date / Time aspirin Allergy Mild unkown Verified 06/27/24 07:55 Exam Narrative Exam Narrative: Psych-alert and oriented x 3.? Attentive and appropriate, constitutionally normal, displays normal mood and affect per situation.? There are no obvious deficits in memory, reasoning, or intellect.? Skin-no obvious rashes, bruising, or erythema noted to the patient's area of pain.? Extremities-upper extremities are warm with minimal edema and palpable pulses. Cervical- tenderness to palpation noted in the cervical spine and paraspinal musculature.? Pain is elicited with flexion, extension, and lateral rotation of the cervical spine.? Range of motion is diminished due to pain. Facet loading maneuvers are negative.? Strength-unremarkable and within normal limits with the exception to the left biceps. Sensory-no notable sensory deficits in the bilateral upper extremities to touch or pinprick with the exception to decreased sensation to the left C5, 6, 7 dermatomal distribution.? Shoulder - tender to palpation in left shoulder. Pain with abduction, external rotation of left shoulder. Coordination remains intact.? Gait remains non-antalgic. Results Imaging cervical MRI: Attestation: I have reviewed the pertinent imaging results. Radiologist's impression: FINDINGS: The bones of the cervical spine are in anatomic alignment. There is preservation of vertebral body heights. There is moderate disc height loss at C5-C6 and C6-C7. There is mild disc height loss at C3-C4 and C4-C5. There is accompanying Modic type III endplate sclerosis. The marrow signal is within normal limits. There is nonspecific T2 hyperintense signal in the posterior aspect of the cervical cord in the midline at C2, C3, and C4. No epidural or paraspinous fluid collection is appreciated. The visualized paraspinous soft tissues are within normal limits. The prevertebral soft tissues are within normal limits. At C2-C3: There is a normal disc, central canal, and neural foramen. At C3-C4: There is a broad-based disc bulge with facet hypertrophy and uncovertebral joint spurring contributing to moderate left and mild right neural foraminal narrowing. There is mild spinal canal narrowing. At C4-C5: There is uncovertebral joint spurring and facet hypertrophy left greater than right. There is severe left and mild right neural foraminal narrowing with mild spinal canal narrowing. At C5-C6: There is a broad-based disc bulge with uncovertebral joint spurring and facet hypertrophy. There is severe right and moderate to severe left neural foraminal narrowing with moderate spinal canal narrowing. At C6-C7: There is a broad-based disc bulge with facet and uncovertebral joint degenerative change. There is moderate right and mild left neural foraminal narrowing with mild spinal canal narrowing. At C7-T1: There is a normal disc, central canal, and neural foramen. Assessment and Plan Assessment and Plan (1) Cervical radiculopathy: Assessment and Plan: The patient has had over 3 months of moderate to severe LUE pain with functional impairment and inadequate response to conservative care including NSAIDS (unless there are contraindication such as concurrent blood thinners), multiple oral or topical pain medications, and home exercise program/physical therapy.? Patient has completed >6 weeks of guided home exercise program and/or formal physical therapy program without relief of their symptoms.? The Oswestry Disability Index was completed, and the patient scored a 22%.? The patient noted the following:?? moderate to severe pain with ADLs, lifting, standing, sitting, walking, sleeping, social life, travel? We discussed the risks and benefits of the procedure with the patient, and we are NOT planning on using sedation as outlined in the guidelines from Medicare unless there is a documented reason that sedation would be strongly recommended.?? ?The procedure will be completed with fluoroscopic guidance.? (2) Cervical stenosis of spinal canal: (3) Osteoarthritis of left shoulder: Qualifiers: Osteoarthritis type: primary Qualified Code(s): M19.012 - Primary osteoarthritis, left shoulder (4) Rotator cuff tear arthropathy of left shoulder: Plan cervical mri reviewed with pt, proceed with left C5-6 C6-7 TFESI under fluoroscopy continue current medications continue HEP as tolerated f/u after injection
== END 2025-04-13 14:20 | disposition home or self-care (01) ==
LOC: PM 14:19
PROVIDERS: PCP Family Medicine; Visit Provider Nurse Practitioner
DX: M54.12 Radiculopathy, cervical region (principal); M48.02 Spinal stenosis, cervical region; M19.012 Primary osteoarthritis, left shoulder; M75.102 Unspecified rotator cuff tear or rupture of left shoulder, not specified as traumatic
CPT/HCPCS: G0463

== ENCOUNTER 2025-05-15 09:50 | Day surgery (SDC) | payer MEDICARE, SELFPAY ==
--- OUTSIDE RECORDS SUMMARY | 2025-05-03 13:45 | XMS_ITS | Encounter Summary ---
Author Organization [facility] Address [address] [place] [address] Care Team Providers Care Branch Examiner Name Role Phone Joanna Wyman NP Unavailable [phone] Jose Guadalupe Villafuerte MD Primary Care Provider [phone] Shaikh PIA Chambers Unavailable [phone] Reason for Referral * Imaging (Routine) - Authorized Specialty Diagnoses / Procedures Referred By Contac t Referred To Contact Radiology Diagnoses Former smoker Procedures CT lung screening low dose Jose Guadalupe Villafuerte MD [address] [place] [address] Phone: tel: fax: [facility] [address] [address] Phone: tel: fax: Referral ID Status Reason Start Date Expiration Date V isits Requested Visits Authorized [id number] Authorized 05/03/2025 07/29/2025 1 1 Reason for Visit * Reason Comments Follow-up 3m Encounter Details Date Type Department Care Team ([facility] Contact Info) Description 05/03/2025 1:45 PM EDT Office Visit [facility] [address] [place] [address] Jose Guadalupe Villafuerte MD [address] [place] [address] Primary hypertension (Primary Dx); Chronic obstructive pulmonary disease, unspecified COPD type (HCC); MDD (major depressive disorder), recurrent episode, mild ; Primary osteoarthritis of left knee; Primary insomnia; Former smoker Social History Tobacco Use Types Packs/Day Years [...] week 09/08/2023 How often do you attend [facility] or anabaptist services? More than 4 times per year 09/08/2023 Do you belong to any clubs o r organizations such as samaritan groups, unions, fraternal or athletic groups, or [...] you are drinking? Patient does not drink 3 Q3: How often do you have si x or more drinks on one occasion? Never 09/08/2023 Overall Financial Resource Strain (CARDIA) Answe r Date Recorded How hard is it for you to pa y for the very basics like food, housing, medical care, and heating? Not very hard 09/08/2023 PHQ-2 Answer Date Recorded Patient Health Questionnaire-2 Score 0 06/14/2024 [facility] - Occupational [...] to sleep or slept in a senior living (including now)? No 09/08/2023 Comments No Sex and Gender Information Value Date Recorded Sex Assigned at Not on file Legal Sex Female 8:27 PM EDT Gender Identity Not on file Sexual Orientation Not on file documented as of this encounter Last Filed Vital Signs Vital Sign Reading Time Taken Comments Blood Pressure 136/84 05/03/2025 1:49 PM EDT Pulse 74 05/03/2025 1:49 PM EDT Temperature 36.2 C (97.1 F) 05/03/2025 1:49 PM EDT Respiratory Rate 22 05/03/2025 1:49 PM EDT Oxygen Saturation 94% 05/03/2025 1:49 PM EDT Inhaled Oxygen Concentration - - Weight 75.8 kg (167 lb) 05/03/2025 1:49 PM EDT Height 162.6 cm (5' 4 ) 05/03/2025 1:49 PM EDT Body Mass Index 28.67 05/03/2025 1:49 PM EDT documented in this encounter Progress Notes * Jose Guadalupe Villafuerte MD - 05/03/2025 6:04 PM EDTAssociated Problem(s): COPD (chronic obstructive pulmonary disease) (HCC) Breathing unchanged and use albuterol PRN. * Jose Guadalupe Villafuerte MD - 05/03/2025 6:04 PM EDTAssociated Problem(s): Former smoker Quit smoking in 2020 and prior 40 plus pack year history. Check LDCT chest. * Jose Guadalupe Villafuerte MD - 05/03/2025 6:04 PM EDTAssociated Problem(s): MDD (major depressive disorder), recurrent episode, mild Symptoms controlled with paxil and continue. * Jose Guadalupe Villafuerte MD - 05/03/2025 6:04 PM EDTAssociated Problem(s): Primary hypertension BP controlled and monitor PRN. * Jose Guadalupe Villafuerte MD - 05/03/2025 6:03 PM EDTAssociated Problem(s): Primary insomnia Not sleeping well and try trazodone. * Jose Guadalupe Villafuerte MD - 05/03/2025 6:02 PM EDTAssociated Problem(s): Primary osteoarthritis of left knee Continued pain and will need replacement. Follow with ortho. * Jose Guadalupe Villafuerte MD - 05/03/2025 1:45 PM EDT Images from the original note were not included. Subjective Patient ID: Sue Moe is a 65 y.o. female who presents for Follow-up (3m ). Follow up HTN, COPD, depression, and pain. Patient stable today. Checking BP PRN and typically controlled. BP normal today. Taking medication daily and tolerating without side effects. COPD unchanged. Denies SOB or cough with exertion. No sputum. Using advair but no change in symptoms. Uses albuterol PRN and helps. Former smoker and quit in 2020. Prior 1 PPD for 40 plus year smoking history. Never had LDCT chest. Depression controlled with paxil. Not down or sad and feels happier. Pain unchanged. Continued pain in left knee. Seen ortho and told needs replacement. Referred to dentist but needscleared due to hip. Left shoulder pain unchanged. Pain in left shoulder and decreased ROM. Using percocet and relafen and helps. C/o not sleeping well. Lay in bed and not able to fall asleep. Wakes up often and hard to get back to sleep. Not tried OTC. Review of Systems Respiratory: Negative for cough, shortness of breath and wheezing. Cardiovascular: Negative for chest pain and palpitations. Gastrointestinal: Negative for abdominal pain, diarrhea, nausea and vomiting. Genitourinary: Negative for dysuria. Objective Physical Exam Constitutional: General: She is not in acute distress. Appearance: Normal appearance. HENT: Head: Normocephalic. Right Ear: Tympanic membrane normal. Left Ear: Tympanic membrane normal. Eyes: Extraocular Movements: Extraocular movements intact. Pupils: Pupils are equal, round, and reactive to light. Cardiovascular: Rate and Rhythm: Normal rate and regular rhythm. Heart sounds: No murmur heard. No friction rub. No gallop. Pulmonary: Effort: Pulmonary effort is normal. Breath sounds: Normal breath sounds. No wheezing, rhonchi or rales. Abdominal: General: Bowel sounds are normal. There is no distension. Palpations: Abdomen is soft. Tenderness: There is no abdominal tenderness. There is no guarding or rebound. Musculoskeletal: Cervical back: Neck supple. Right lower leg: No edema. Left lower leg: No edema. Neurological: Mental Status: She is alert. Assessment/Plan Problem List Items Addressed This Visit Primary osteoarthritis of left knee Continued pain and will need replacement. Follow with ortho. Primary hypertension - Primary BP controlled and monitor PRN. COPD (chronic obstructive pulmonary disease) (HCC) Breathing unchanged and use albuterol PRN. MDD (major depressive disorder), recurrent episode, mild Symptoms controlled with paxil and continue. Primary insomnia Not sleeping well and try trazodone. Relevant Medications traZODone (Desyrel) 50 MG tablet Former smoker Quit smoking in 2020 and prior 40 plus pack year history. Check LDCT chest. Relevant Orders CT lung screening low dose documented in this encounter Plan of Treatment Upcoming Encounters Date Type Department Care Team (Late st Contact Info) Description 08/03/2025 1:00 PM EDT Office Visit [facility] [address] [place] [address] Jose Guadalupe Villafuerte MD [address] [place] [address] Scheduled Orders Name Type Priority Associated Diagnoses Orde r Schedule CT lung screening low dose Imaging Routine Former smoker Expected: 05/03/2025, Expires: 05/03/2026 documented as of this encounter Visit Diagnoses Diagnosis Primary hypertension- Primary Unspecified essential hypertension Chronic obstructive pulmonary disease, unspecified COPD type (HCC) MDD (major depressive disorder), recurrent episode, mild Primary osteoarthritis of left knee Primary insomnia Persistent disorder of initiating or maintaining sleep Former smoker Personal history of tobacco use, presenting hazards to health documented in this encounter Care Teams Branch Examiner Relationship Specialty Start Date End Date Jose Guadalupe Villafuerte MD [address] [place] [address] PCP - General Family Medicine 08/04/24 Shaikh Chambers MD [address] [place] [address] PCP - Yoanna FERNANDEZ 10/05/24 Joanna Wyman NP Nurse Practitioner Family Medicine 05/12/24 documented as of this encounter
--- OUTSIDE RECORDS SUMMARY | 2025-05-15 09:52 | XMS_ITS | Encounter Summary ---
Author Organization [facility] Address [address] [place] [address] Care Team Providers Care Rubbish Collection Supervisor Name Role Phone Shaikh PIA Chambers Primary Care Provider [phone] Shaikh PIA Chambers Primary Care Provider [phone] Jose Guadalupe Villafuerte MD Primary Care Provider [phone] Joanna Wyman [employer] Unavailable [phone] Unallocated, Scott Nicholson MD Primary Care Provi royce Jose Guadalupe Villafuerte MD Primary Care Provider [phone] Shaikh PIA Chambers Unavailable [phone] Encounter Details Date Type Department Care Team (Late st Contact Info) Description 08/20/2023 Abstract [facility] [address] [place] [address] Celine Bedoya [employer] Social History Tobacco Use Types Packs/Day Years [...] Department Care Team (Late Contact Info) Description 08/03/2025 1:00 PM EDT Office Visit [facility] [address] [place] [phone] Jose Guadalupe Villafuerte MD [address] [place] [address] documented as of this encounter Visit Diagnoses Not on filedocumented in this encounter Care Teams Rubbish Collection Supervisor Relationship Specialty Start Date End Date Shaikh Chambers MD PCP - General Internal Medicine 05/04/23 12/09/23 Shaikh Chambers MD [address] [place] [phone] PCP - General Internal Medicine 12/10/23 05/11/24 Jose Guadalupe Villafuerte MD [address] [place] [address] PCP - General Family Medicine 05/12/24 07/24/24 Unallocated, Scott Nicholson MD [address] [place] [address] PCP - General Family Medicine 07/25/24 08/03/24 Jose Guadalupe Villafuerte MD [address] [place] [address] PCP - General Family Medicine 08/04/24 Shaikh Chambers MD [address] [place] [phone] PCP - Yoanna FERNANDEZ 10/05/24 Joanna Wyman NP [address] [place] [phone] Nurse Practitioner Family Medicine 05/12/24 documented as of this encounter
--- OUTSIDE RECORDS SUMMARY | 2025-05-15 09:52 | XMS_ITS | Clinical Summary ---
Author Organization [facility] Address [address] [place] [address] Care Team Providers Care Casting Agent Name Role Phone Joanna Wyman NP Unavailable [phone] Jose Guadalupe Villafuerte MD Primary Care Provider [phone] Shaikh PIA Chambers Unavailable [phone] Allergies Active Allergy Reactions Criticality Noted [...] tablet every 12 (twelve) hours. Active Evening [place] Oil 1000 MG capsule as directed Orally [...] obstructive pulmonary disease based on initial evaluation ([facility]) Inhale 2 puffs every 4 (four) hours if needed for wheezing 8.5 g 3 06/14/20 24 Active simvastatin (Zocor) 20 MG tabletIndications: Mixed hyperlipidemia Take 1 tablet (20 mg) by mouth 1 (one) time each day at the same time 90 tablet 3 12/14/19 25 Active alendronate (Fosamax) 35 MG tabletIndications: [...] obstructive pulmonary disease based on initial evaluation ([facility]),Mild intermittent asthma without complication ([facility]) Inhale 1 puff Daily 60 each 2 03/06/20 25 Active nabumetone (Relafen) 500 MG tabletIndications: Chronic left shoulder pain,Chronic pain of left knee Take 1 tablet (500 mg) by mouth 2 (two) times a day as needed for mild pain 60 tablet 3 04/10/20 25 Active oxyCODONE (Roxicodone) 5 MG immediate release tabletIndications: Chronic left shoulder pain,Chronic pain of left knee Take 1 tablet (5 mg) by mouth every 12 (twelve) hours if needed for moderate pain 60 tablet 04/26/20 25 025 Active traZODone (Desyrel) 50 MG tabletIndications: Primary insomnia Take 1 tablet (50 mg) by mouth at bedtime 30 tablet 2 05/03/20 25 Active hydroCHLOROthiazid e (HYDRODiuril) 25 MG tabletIndications: Primary hypertension Take 1 tablet (25 mg) by mouth in the morning. 90 tablet 1 05/10/20 25 Active losartan (Cozaar) 100 MG tabletIndications: Primary hypertension Take 1 tablet (100 mg) by mouth Daily 90 tablet 3 05/10/20 25 Active hydroCHLOROthiazid e (HYDRODiuril) 25 MG tabletIndications: Primary hypertension Take 1 tablet (25 mg) by mouth in the morning. 90 tablet 1 09/13/20 24 025 Discontin ued(Reord er) losartan (Cozaar) 100 MG tabletIndications: Primary hypertension Take 1 tablet (100 mg) by mouth Daily 12/21/19 25 025 Discontin ued(Reord er) oxyCODONE (Roxicodone) 5 MG immediate release tabletIndications: Chronic left shoulder pain,Chronic pain of left knee Take 1 tablet (5 mg) by mouth every 12 (twelve) hours if needed for moderate pain 60 tablet 03/28/20 25 025 Discontin ued(Reord er) Active Problems Problem Noted Date Diagnosed Date Primary insomnia 05/03/2025 Assessment & Plan (05/03/2025 6:03 PM EDT): Not sleeping well and try trazodone. Former smoker 05/03/2025 Assessment & Plan (05/03/2025 6:04 PM EDT): Quit smoking in 2020 and prior 40 plus pack year history. Check LDCT chest. Prediabetes 12/20/2024 MDD (major depressive disorder), recurrent episo de, mild 12/20/2024 Assessment & Plan (05/03/2025 6:04 PM EDT): Symptoms controlled with paxil and continue. Assessment & Plan (12/20/2024 3:03 PM EDT): [...] long/exercise because of pain. Patient had ECHO 06/26 - Normal EF, no sig cardiac structural [...] long/exercise because of pain. Patient had ECHO 06/26 - Normal EF, no sig cardiac structural abnormality. Denies orthopnea/PND. Pre op testing ordered for patient. Once pre op testing has been reviewed, we will send/fax our final decision/recommendation related to surgical risk. COPD (chronic obstructive pulmonary disease) 08/2024 Assessment & Plan (05/03/2025 6:04 PM EDT): Breathing unchanged and use albuterol PRN. Assessment & Plan (12/20/2024 3:03 PM EDT): [...] needed. Primary hypertension 09/08/2023 Assessment & Plan (05/03/2025 6:04 PM EDT): BP controlled and monitor PRN. Assessment & Plan (12/20/2024 3:04 PM EDT): [...] of left knee 04/30/2023 Assessment & Plan (05/03/2025 6:02 PM EDT): Continued pain and will need replacement. Follow with ortho. 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 04/30/2023 12/20/2024 Other chronic pain 04/30/2023 5 Osteoarthritis of both knees 04/30/2023 12/20/2024 Hip pain 01/08/2021 12/20/2024 Asthma 12/20/2024 Encounters Date Type Department Care Team Description 05/10/2025 Refill [facility] [address] [place] [address] Jose Guadalupe Villafuerte MD Primary hypertension 05/03/2025 1:45 PM EDT Office Visit [facility] [address] [place] [address] Jose Guadalupe Villafuerte MD Primary hypertension (Primary Dx); Chronic obstructive pulmonary disease, unspecified COPD type (HCC); MDD (major depressive disorder), recurrent episode, mild ; Primary osteoarthritis of left knee; Primary insomnia; Former smoker 05/03/2025 Bamboo flowsheet [facility] [address] [place] [address] Jose Guadalupe Villafuerte MD 04/27/2025 Telephone [facility] [address] [place] [address] Jose Guadalupe Villafuerte MD 04/26/2025 [facility]ill [facility] [address] [place] [address] Jose Guadalupe Villafuerte MD Chronic left shoulder pain; Chronic pain of left knee 04/10/2025 [facility]ill [facility] [address] [place] [address] Jose Guadalupe Villafuerte MD Chronic left shoulder pain; Chronic pain of left knee 03/28/2025 Clinisync Result Encounter [facility] External Department Unsolicited Provider, Generic External Data 03/28/2025 [facility]ill [facility] [address] [place] [address] Jose Guadalupe Villafuerte MD Chronic left shoulder pain; Chronic pain of left knee 03/20/2025 [facility]ill [facility] [address] [place] [address] Jose Guadalupe Villafuerte MD 03/07/2025 Abstract [facility] [address] [place] [address] Jose Guadalupe Villafuerte MD 03/06/2025 [facility]ill [facility] [address] [place] [address] Jose Guadalupe Villafuerte MD Suspected chronic obstructive pulmonary disease based on initial evaluation ([facility]); Mild intermittent asthma without complication (HCC) 02/23/2025 [facility]ill [facility] [address] [place] [address] Jose Guadalupe Villafuerte MD Chronic left shoulder pain; Chronic pain of left knee from Last 3 Months Immunizations Immunization Administration Dates Next Due Hep B, Adolescent or Pediatric 12/24/2010,2010,06/28/2010 Influenza, injectable, quadr ivalent, preservative free 10/01/2022 Tdap 10/20/2022 Zoster, Recombinant 10/20/2022 Family History Medical History Relation Name Comments Heart disease Father Breast cancer Mother Hypertension Mother Lung cancer Mother Relation Name Status Comments Father (Age 70) due t o PA Mother Social History Tobacco Use Types Packs/Day [...] often do you attend chur ch or muslim services? More than 4 times per year 09/08/2023 Do you belong to any clubs o r organizations such as taoist groups, unions, fraternal [...] Recorded Patient Health Questionnaire-2 Score 0 06/14/2024 [facility] - Occupational [...] place to sleep or slept in a skilled nursing (including now)? No 09/08/2023 Comments No Sex [...] Mass Index 28.67 05/03/2025 1:49 PM EDT Plan of Treatment Upcoming Encounters Date Type Department Care Team (Late st Contact Info) Description 08/03/2025 1:00 PM EDT [facility] Visit [facility] [address] [place] [address] Jose Guadalupe Villafuerte MD [address] [place] [address] Health Maintenance Due Date Last Done Comments CT Colonography 1960 FIT-DNA 1960 FIT 1960 FOBT 1960 Sigmoidoscopy 1960 Pneumococcal Vaccine: 65+ Years (1 of 2 - PCV) 1977 Medicare Annual Wellness (AWV) 09/08/2024 09/08/2023 Mammogram 01/07/2025 01/08/2024, 09/08/2023 Influenza Vaccine (#1) 2025 10/01/2022 Lung Cancer Screening Shared Decision Making 05/05/2026 Postponed from 03/10 (Other Medical Reasons) Colonoscopy 10/05/2027 10/05/2017 Colorectal Cancer Screening 10/05/2027 Procedures Procedure Name Priority Date/Time Associated Diagnosis Comments MR CERVICAL SPINE WO CONTRAST 03/28/2025 4:15 PM EDT MM TOMOSYNTHESIS SCREENING BI 01/08/2024 11:52 AM EDT from Last 3 Months or Most Recently Relevant to Health Maintenance Results * MR cervical spine wo contrast (03/28/2025 4:15 PM EDT) Anatomical Region Laterality Modality Spine, C-spine Magnetic Resonan ce 03/28/2025 4:15 PM EDT Narrative 03/28/2025 4:18 [place] [address] Magnetic Resonance Report Signed Patient: BLANCA MOE MR#: [id number] : 1960 Acct:[id number] Age/Sex: 65 / F ADM Date: 03/28/25 Loc: MRI Attending Dr: Chikis May M.D. Ordering Physician: Chikis May M.D. Date of Service: 03/28/25 Procedure(s): MR cervical spine wo con Accession Number(s): [id number] cc: Chikis May M.D.; Jose Guadalupe Villafuerte M.D. [facility] [place] [id number] Patient Name: BLANCA MOE MRN: [id number] date: 1960 Sex: F Assigned Patient Location: MRI Current Patient Location: MRI Accession/Order Number: [id number] Exam Date: 03/28/2025 16:09 Report Date: 03/28/2025 [...] Saucedo M.D. 03/28/2025 4:15 PM Dictation Location: [place] [address] Electronically authenticated by: [id number] Y Date: 03/28/2025 16:15 Dictated By: Bi Saucedo M.D. Signed By: 03/28/251617 DD/ 14 TD/TT: Fashion Supervisor: Procedure Note Radiology, Radiologist, MD - 03/28/2025 [place] [address] Magnetic Resonance Report Signed Patient: BLANCA MOE LMR#: [id number] : 1960cct:[id number] Age/Sex: 65 / FADM Date: 03/28/25 Loc: MRI Attending Dr: Chikis May M.D. Ordering Physician: Chikis May M.D. Date of Service: 03/28/25 Procedure(s): MR cervical spine wo con Accession Number(s): [id number] cc: Chikis May M.D.; Jose Guadalupe Villafuerte M.D. [facility] [place] [address] Patient Name: BLANCA MOE MRN: [facility]:[id number] date: 1960 Sex: F Assigned Patient Location: MRI Current Patient Location: MRI Accession/Order Number: [id number] Exam Date: 03/28/2025 16:09 Report Date: 03/28/2025 [...] Saucedo M.D. 03/28/2025 4:15 PM Dictation Location: [place] [address] Electronically authenticated by: [id number] Y Date: 6:15 Dictated By: Bi Saucedo M.D. Signed By:03/28/25 1618 DD/ 14 TD/TT: Fashion Supervisor: us Generic External Data Provider IMG MRI PROCEDURE S Final Result * MM TOMOSYNTHESIS SCREENING BI (01/08/2024 11:52 AM EDT) Anatomical Region Laterality Modality Other 01/08/2024 11:5 2 AM EDT Narrative 01/08/2024 11:53 [place] [address] Mammography Report Signed Patient: BLANCA MOE MR#: [id number] : 1960 Acct:[id number] Age/Sex: 63 / F ADM Date: 01/07/24 Loc: MAMMO Attending Dr: Shaikh Reyes Rader Ordering Physician: Shaikh Dior Chambers Results: Date of Service: 01/07/24 Follow Up: Procedure(s): MM tomosynthesis screening BI Accession Number(s): [id number] cc: Shaikh Dior Chambers Patient Name: BLANCA MOE MR#: [id number] : 1960 Exam Date: 01/07/2024 Ordering Doctor: [...] breast cancer at age 48. LOCATION: [facility] BREAST COMPOSITION: Scattered areas fibroglandular density. FINDINGS: [...] Signed By: 01/08/24 1153 DD/ 1152 TD/TT: Fashion Supervisor: Procedure Note Radiology, Radiologist, MD - 01/08/2024 [place] [address] Mammography Report Signed Patient: BLANCA MOE LMR#: [id number] : 1960cct:[id number] Age/Sex: 63 / FADM Date: 01/07/24 Loc: MAMMO Attending Dr: Shaikh Reyes Rader Ordering Physician: Shaikh Dior ChambersResults: Date of Service: 01/07/24Follow Up: Procedure(s): MM tomosynthesis screening BI Accession Number(s): [id number] cc: Shaikh Dior Chambers Patient Name: BLANCA MOE MR#: [id number] : 1960 Exam Date: 01/07/2024 Ordering Doctor: [...] breast cancer at age 48. LOCATION: [facility] BREAST COMPOSITION: Scattered areas fibroglandular density. FINDINGS: [...] M.D. Signed By:01/08/24 1153 DD/ 1152 TD/TT: Fashion Supervisor: us Shaikh Ryees [facility] Final Result from Last 3 Months or Most Recently Relevant to Health Maintenance Insurance [employer] Care Teams Casting Agent Relationship Specialty Start Date End Date Jose Guadalupe Villafuerte MD [address] [place] [address] PCP - General Family Medicine 08/04/24 Shaikh Chambers MD [address] [place] [address] PCP - Yoanna FERNANDEZ 10/05/24 Joanna Wyman NP Nurse Practitioner Family Medicine 05/12/24
--- OUTSIDE RECORDS SUMMARY | 2025-05-15 09:52 | XMS_ITS | Encounter Summary ---
Author Organization [facility] Address [address] [place] [address] Care Team Providers Care Tire Tester Name Role Phone Jose Guadalupe Villafuerte MD Primary Care Provider Joanna Wyman NP Unavailable Unallocated, Noms Provider Primary Care Provi royce Jose Guadalupe Villafuerte MD Primary Care Provider [phone] Shaikh PIA Chambers Unavailable [phone] Encounter Details Date Type Department Care Team (Late st Contact Info) Description 05/24/2024 Abstract [facility] [address] [place] [address] Joanna Wyman NP Social History Tobacco Use [...] any clubs o r organizations such as sikhism groups, unions, fraternal or athletic groups, or [...] Recorded Patient Health Questionnaire-2 Score 0 03/15/2024 [facility] of Occupat ional Health - Occupational Stress [...] place to sleep or slept in a chcf (including now)? No 09/08/2023 Comments Unknown Sex and Gender Information Value Date Recorded Sex Assigned at Not on file Legal Sex Female 8:27 PM EDT Gender Identity Not on file Sexual Orientation Not on file documented as of this encounter Plan of Treatment Upcoming Encounters Date Type Department Care Team (Late st Contact Info) Description 08/03/2025 1:00 PM EDT Office Visit [facility] [address] [place] [address] Jose Guadalupe Villafuerte MD [address] [place] [address] documented as of this encounter Visit Diagnoses Not on filedocumented in this encounter Care Teams Tire Tester Relationship Specialty Start Date End Date Jose Guadalupe Villafuerte MD [address] [place] [address] PCP - General Family Medicine 05/12/24 07/24/24 Unallocated, Evie Nicholson MD [address] [place] [address] PCP - General Family Medicine 07/25/24 08/03/24 Jose Guadalupe Villafuerte MD [address] [place] [address] PCP - General Family Medicine 08/04/24 Shaikh Chambers MD [address] [place] [address] PCP - Yoanna FERNANDEZ 10/05/24 Joanna Wyman NP [address] [place] [address] Nurse Practitioner Family Medicine 05/12/24 documented as of this encounter
--- OUTSIDE RECORDS SUMMARY | 2025-05-15 09:52 | XMS_ITS | Clinical Summary ---
Author Organization [facility] Address [id number] [address] [place] [address] Care Team Providers Care Marketing Services Rep Name Role Phone Unavailable Primary Care Provider [...]
--- OUTSIDE RECORDS SUMMARY | 2025-05-15 09:53 | XMS_ITS | Encounter Summary ---
Author Organization [facility] Address [address] [place] [address] Care Team Providers Care Hydraulic Jack Operator Name Role Phone Shaikh PIA Chambers Primary Care Provider [phone] Jose Guadalupe Villafuerte MD Primary Care Provider [phone] Joanna Wyman NP Unavailable [phone] Unallocated, Noms Provider Primary Care Provi royce Jose Guadalupe Villafuerte MD Primary Care Provider [phone] Shaikh PIA Chambers Unavailable Encounter Details Date Type Department Care Team (Late st Contact Info) Description 03/15/2024 Clinisync Result Encounter [facility] External Department Unsolicited Shaikh Chambers MD [address] [place] [address] Social History Tobacco Use Types Packs/Day Years [...] How often do you attend chur or hinduism services? More than 4 times per year 09/08/2023 Do you belong to any clubs o r organizations such as congregational groups, unions, fraternal or athletic groups, or [...] Recorded Patient Health Questionnaire-2 Score 0 03/15/2024 [facility] of Occupat ional Health - Occupational Stress [...] place to sleep or slept in a longterm (including now)? No 09/08/2023 Comments Unknown Sex [...] 08/03/2025 1:00 PM EDT Office Visit [facility] [address] [place] [address] Jose Guadalupe Villafuerte MD [address] [place] [address] documented as of this encounter Procedures Procedure Name Priority Date/Time Associated Diagnosis Comments ECG 12-LEAD 03/15/2024 3:29 PM EDT documented in this encounter Results * ECG 12-LEAD (03/15/2024 3:29 PM EDT) Anatomical Region Laterality Modality Other 03/15/2024 3:29 PM EDT Narrative 03/15/2024 9:12 PM EDT [address] [address] Electrocardiograph Report Signed Patient: BLANCA MOE MR#: [id number] : 1960 Acct:[id number] Age/Sex: 64 / F ADM Date: 03/15/24 Loc: CARD Attending Dr: Shaikh Reyes Rader Ordering Physician: Shaikh Dior Chambers Date of Service: 03/15/24 Procedure(s): ECG 12 lead Accession Number(s): [id number] cc: [facility] Test Date: 2024-03-15 Pat Name: BLANCA MOE Department: Room: - 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 Signed By:03/15/24211103/15/242111 DD/ 1529 TD/TT: Actuarial Internship: us Shaikh Reyes [facility] Final Result documented in this encounter Visit Diagnoses Not on filedocumented in this encounter Care Teams Hydraulic Jack Operator Relationship Specialty Start Date End Date Shaikh Chambers MD [address] [place] [address] PCP - General Internal Medicine 12/10/23 05/11/24 Jose Guadalupe Villafuerte MD [address] [place] [address] PCP - General Family Medicine 05/12/24 07/24/24 Unallocated, Evie Nicholson MD [address] [facility] [place] [address] PCP - General Family Medicine 07/25/24 08/03/24 Jose Guadalupe Villafuerte MD [address] [place] [address] PCP - General Family Medicine 08/04/24 Shaikh Chambers MD [address] [place] [address] PCP - Yoanna FERNANDEZ 10/05/24 Joanna Wyman NP [address] [place] [address] Nurse Practitioner Family Medicine 05/12/24 documented as of this encounter
--- OUTSIDE RECORDS SUMMARY | 2025-05-15 09:53 | XMS_ITS | Encounter Summary ---
Author Organization [facility] Address [address] [place] [address] Care Team Providers Care Delivery Person Name Role Phone Shaikh PIA Chambers Primary Care Provider [phone] Jose Guadalupe Villafuerte MD Primary Care Provider [phone] Joanna Wyman NP Unavailable [phone] Unallocated, Noms Provider Primary Care Provi royce Jose Guadalupe Villafuerte MD Primary Care Provider [phone] Shaikh PIA Chambers Unavailable [phone] Encounter Details Date Type Department Care Team (Late st Contact Info) Description 01/08/2024 Clinisync Result Encounter [facility] External Department Unsolicited Shaikh Chambers MD [address] [place] [address] Social History Tobacco Use Types Packs/Day Years [...] How often do you attend chur or tenriism services? More than 4 times per year 09/08/2023 Do you belong to any clubs o r organizations such as anabaptist groups, unions, fraternal or athletic groups, or [...] Recorded Patient Health Questionnaire-2 Score 1 12/10/2023 [facility] of Occupat ional Health - Occupational Stress [...] a penitentiary (including now)? No 09/08/2023 Comments Unknown Sex and Gender Information Value Date Recorded Sex Assigned at Not on file Legal Sex Female 8:27 PM EDT Gender Identity Not on file Sexual Orientation Not on file documented as of this encounter Plan of Treatment Upcoming Encounters Date Type Department Care Team (Late st Contact Info) Description 08/03/2025 1:00 PM EDT Office Visit [facility] [address] [place] [address] Jose Guadalupe Villafuerte MD [address] [place] [address] documented as of this encounter Procedures Procedure Name Priority Date/Time Associated Diagnosis Comments MM TOMOSYNTHESIS SCREENING BI 01/08/2024 11:52 AM EDT documented in this encounter Results * MM TOMOSYNTHESIS SCREENING BI (01/08/2024 11:52 AM EDT) Anatomical Region Laterality Modality Other 01/08/2024 11:5 2 AM EDT Narrative 01/08/2024 11:53 [place] [address] Mammography Report Signed Patient: BLANCA MOE MR#: [id number] : 1960 Acct:[id number] Age/Sex: 63 / F ADM Date: 01/07/24 Loc: MAMMO Attending Dr: Shaikh Reyes Rader Ordering Physician: Shaikh Dior Chambers Results: Date of Service: 01/07/24 Follow Up: Procedure(s): MM tomosynthesis screening BI Accession Number(s): [id number] cc: Shaikh Dior Chambers Patient Name: BLANCA MOE MR#: [id number] : 1960 Exam Date: 01/07/2024 Ordering Doctor: [...] breast cancer at age 48. LOCATION: The [facility] BREAST COMPOSITION: Scattered areas [...] Signed By: 01/08/24 1153 DD/ 1152 TD/TT: Special Projects Manager: Procedure Note Radiology, Radiologist, MD - 01/08/2024 [place] [address] Mammography Report Signed Patient: BLANCA MOE LMR#: [id number] : 1960cct:[id number] Age/Sex: 63 / FADM Date: 01/07/24 Loc: MAMMO Attending Dr: Shaikh Reyes Rader Ordering Physician: Shaikh Dior ChambersResults: Date of Service: 01/07/24Follow Up: Procedure(s): MM tomosynthesis screening BI Accession Number(s): [id number] cc: Shaikh Dior Chambers Patient Name: BLANCA MOE MR#: [id number] : 1960 Exam Date: 01/07/2024 Ordering Doctor: [...] breast cancer at age 48. LOCATION: The [facility] BREAST COMPOSITION: Scattered areas [...] M.D. Signed By:01/08/24 1153 DD/ 1152 TD/TT: Special Projects Manager: us Shaikh Reyes [facility] Final Result documented in this encounter Visit Diagnoses Not on filedocumented in this encounter Care Teams Delivery Person Relationship Specialty Start Date End Date Shaikh Chambers MD [address] [place] [address] PCP - General Internal Medicine 12/10/23 05/11/24 Jose Guadalupe Villafuerte MD [address] [place] [address] PCP - General Family Medicine 05/12/24 07/24/24 Unallocated, Evie Nicholson MD [address] [place] [address] PCP - General Family Medicine 07/25/24 08/03/24 Jose Guadalupe Villafuerte MD [address] [place] [address] PCP - General Family Medicine 08/04/24 Shaikh Chambers MD [address] [place] [address] PCP - Yoanna FERNANDEZ 10/05/24 Joanna Wyman NP [address] [place] [address] Nurse Practitioner Family Medicine 05/12/24 documented as of this encounter
--- OUTSIDE RECORDS SUMMARY | 2025-05-15 09:53 | XMS_ITS | Encounter Summary ---
Author Organization [facility] Address [address] [facility] [place] [address] Care Team Providers Care Environmental Emergencies Planner Name Role Phone Shaikh PIA Chambers Primary Care Provider [phone] Jose Guadalupe Villafuerte MD Primary Care Provider [phone] Joanna Wyman NP Unavailable [phone] Unallocated, Evie Provider Primary Care Provi royce Jose Guadalupe Villafuerte MD Primary Care Provider [phone] Shaikh PIA Chambers Unavailable [phone] Reason for Visit * Reason Comments Med Refill Encounter Details Date Type Department Care Team (Late st Contact Info) Description 01/12/2024 [facility]ill [facility] [address] [place] [address] Shaikh Chambers MD [address] [place] [address] Hyperuricemia (Primary Dx) Social History Tobacco Use [...] any clubs o r organizations such as mormonism groups, unions, fraternal or athletic groups, or [...] Recorded Patient Health Questionnaire-2 Score 1 12/10/2023 [facility] of Occupat ional Health - Occupational [...] senior living (including now)? No 09/08/2023 Comments Unknown Sex [...] [facility] [address] [place] [address] Jose Guadalupe Villafuerte MD [address] [place] [address] documented as of this encounter Visit Diagnoses Diagnosis Hyperuricemia- Primary Other abnormal blood chemistry documented in this encounter Care Teams Environmental Emergencies Planner Relationship Specialty Start Date End Date Shaikh Chambers MD [address] [place] [address] PCP - General Internal Medicine 12/10/23 05/11/24 Jose Guadalupe Villafuerte MD [address] [place] [address] PCP - General Family Medicine 05/12/24 07/24/24 Unallocated, Evie Nicholson MD [address] [place] [address] PCP - General Family Medicine 07/25/24 08/03/24 Jose Guadalupe Villafuerte MD [address] [place] [address] PCP - General Family Medicine 08/04/24 Shaikh Chambers MD [address] [place] [address] PCP - Yoanna FERNANDEZ 10/05/24 Joanna Wyman NP [address] [place] [address] Nurse Practitioner Family Medicine 05/12/24 documented as of this encounter
--- OUTSIDE RECORDS SUMMARY | 2025-05-15 09:53 | XMS_ITS | Encounter Summary ---
Author Organization [facility] Address [address] [place] [address] Care Team Providers Care White Washer Name Role Phone Jose Guadalupe Villafuerte MD Primary Care Provider [phone] Joanna Bryant NP Unavailable Unallocated, Noms Provider Primary Care Provi royce Jose Guadalupe Villafuerte MD Primary Care Provider [phone] Shaikh PIA Chambers Unavailable [phone] Encounter Details Date Type Department Care [...] How often do you attend chur or jain services? More than 4 times per year [...] Recorded Patient Health Questionnaire-2 Score 0 06/14/2024 [facility] of Occupat ional Health - Occupational [...] place to sleep or slept in a mcfp (including now)? No 09/08/2023 Comments Unknown Sex [...] Office Visit [facility] [address] [place] [address] Jose Guadalupe Villafuerte MD [address] [place] [address] documented as of this encounter Procedures Procedure Name Priority Date/Time Associated Diagnosis Comments RT PULMONARY FUNCTION TEST 07/12/2024 1:00 PM EDT documented in this encounter Results * RT PULMONARY FUNCTION TEST (07/12/2024 1:00 PM EDT) Anatomical Region Laterality Modality Other 07/12/2024 1:00 PM EDT Narrative 07/13/2024 6:34 AM EDT The [place] [id number] Respiratory Report Signed Patient: BLANCA MOE MR#: [id number] : 1960 Acct:[id number] Age/Sex: 64 / F ADM Date: 07/12/24 Loc: CARD Attending Dr: JOANNA BRYANT Ordering Physician: JOANNA BRYANT Date of Service: 07/12/24 Procedure(s): RT pulmonary function test Accession Number(s): [id number] cc: [facility] Test Date: 2024-07-12 Pat Name: BLANCA MOE Department: Room: - Gender: Female 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: Yanelis Heller RRT : 1960 Requested By: [id number] Order Number: [id number] Reading MD: Justin Marin Interpretive Statements Pulmonary [...] 07/13/24 0634 07/13/24 0634 DD/ 1300 TD/TT: Administration Manager: Procedure Note Radiology, Radiologist, MD - 07/13/2024 [place] [address] Respiratory Report Signed Patient: BLANCA MOE LMR#: [id number] : 8Acct:[id number] Age/Sex: 64 / FADM Date: 07/12/24 Loc: CARD Attending Dr: JOANNA BRYANT Ordering Physician: JOANNA BRYANT Date of Service: 07/12/24 Procedure(s): RT pulmonary function test Accession Number(s): [id number] cc: The [facility] Test Date: 2024-07-12 Pat Name: BLANCA MOE Department: Room: - Gender: Female 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: Yanelis Heller RRT : 1960 Requested By: [id number] Order Number: [id number] Reading MD: Justin Marin Interpretive Statements Pulmonary [...] By:07/13/24 0634 07/13/24 0634 DD/ 1300 TD/TT: Administration Manager: Joanna Bryant [facility] Final Result documented in this encounter Visit Diagnoses Not on filedocumented in this encounter Care Teams White Washer Relationship Specialty Start Date End Date Jose Guadalupe Villafuerte MD [address] [place] [address] PCP - General Family Medicine 05/12/24 07/24/24 Unallocated, Evie Nicholson MD [address] [place] [address] PCP - General Family Medicine 07/25/24 08/03/24 Jose Guadalupe Villafuerte MD [address] [place] [address] PCP - General Family Medicine 08/04/24 Shaikh Chambers MD [address] [place] [address] PCP - Yoanna FERNANDEZ 10/05/24 Joanna Bryant NP [address] [place] [address] Nurse Practitioner Family Medicine 05/12/24 documented as of this encounter
--- OUTSIDE RECORDS SUMMARY | 2025-05-15 09:53 | XMS_ITS | Encounter Summary ---
Author Organization [facility] Address [address] [place] [address] Care Team Providers Care Cap Machine Operator Name Role Phone Shaikh PIA Chambers Primary Care Provider [phone] Jose Guadalupe Villafuerte MD Primary Care Provider [phone] Joanna Wyman NP Unavailable [phone] Unallocated, Noms Provider Primary Care Provi royce Jose Guadalupe Villafueret MD Primary Care Provider [phone] Shaikh PIA Chambers Unavailable [phone] Encounter Details Date Type Department Care [...] How often do you attend chur or adventist services? More than 4 times per year 09/08/2023 Do you belong to any clubs o r organizations such as protestant groups, unions, fraternal or athletic groups, or [...] Recorded Patient Health Questionnaire-2 Score 0 03/15/2024 [facility] of Occupat ional Health - Occupational [...] a correction (including now)? No 09/08/2023 Comments Unknown Sex and Gender Information Value Date Recorded Sex Assigned at Not on file Legal Sex Female 8:27 PM EDT Gender Identity Not on file Sexual Orientation Not on file documented as of this encounter Plan of Treatment Upcoming Encounters Date Type Department Care Team (Late st Contact Info) Description 08/03/2025 1:00 PM EDT [facility] Visit [facility] [address] [place] [address] Jose Guadalupe Villafuerte MD [address] [place] [address] documented as of this encounter Procedures Procedure Name Priority Date/Time Associated Diagnosis Comments CT SHOULDER LT WO CON 03/28/2024 8:14 AM EDT documented in this encounter Results * CT SHOULDER LT WO CON (03/28/2024 8:14 AM EDT) Anatomical Region Laterality Modality Other 03/28/2024 8:14 AM EDT Narrative 03/28/2024 8:17 AM EDT The [address] [address] [address] Scan Report Signed Patient: BLANCA MOE MR#: [id number] : 1960 Acct:[id number] Age/Sex: 64 / F ADM Date: 03/25/24 Loc: CT Attending Dr: Fox Pascual M.D. Ordering Physician: Fox Pascual M.D. Date of Service: 03/25/24 Procedure(s): CT shoulder LT wo con Accession Number(s): [id number] cc: Shaikh Dior Chambers [address] [address] Patient Name: BLANCA MOE MRN: [id number] date: 1960 Sex: F Assigned Patient Location: CT Current Patient Location: Accession/Order Number: [id number] Exam Date: 03/25/2024 13:00 Report Date: 03/28/2024 [...] M.D. Signed By: 03/28/24816 DD/ 3 TD/TT: Chicken Fancier: Procedure Note Radiology, Radiologist, MD - 03/28/2024 [place] [address] CT Scan Report Signed Patient: BLANCA MOE LMR#: [id number] : 1960cct:[id number] Age/Sex: 64 / FADM Date: 03/25/24 Loc: CT Attending Dr: Fox Pascual M.D. Ordering Physician: Fox Pascual M.D. Date of Service: 03/25/24 Procedure(s): CT shoulder LT wo con Accession Number(s): [id number] cc: Shaikh Dior Chambers [place] [address] Patient Name: BLANCA MOE MRN: [id number] date: 1960 Sex: F Assigned Patient Location: CT Current Patient Location: Accession/Order Number: [id number] Exam Date: 03/25/2024 13:00 Report Date: 03/28/2024 [...] Conrad M.D. Signed By:03/28/24816 DD/ 3 TD/TT: Chicken Fancier: us Generic External Data Provider [facility] Final Result documented in this encounter Visit Diagnoses Not on filedocumented in this encounter Care Teams Cap Machine Operator Relationship Specialty Start Date End Date Shaikh Chambers MD [address] [place] [address] PCP - General Internal Medicine 12/10/23 05/11/24 Jose Guadalupe Villafuerte MD [address] [place] [address] PCP - General Family Medicine 05/12/24 07/24/24 Unallocated, Noms MD [facility] [place] [address] PCP - General Family Medicine 07/25/24 08/03/24 Jose Guadalupe Villafuerte MD [address] [place] [address] PCP - General Family Medicine 08/04/24 Shaikh Chambers MD [address] [place] [address] PCP - Yoanna FERNANDEZ 10/05/24 Joanna Wyman NP [address] [place] [address] Nurse Practitioner Family Medicine 05/12/24 documented as of this encounter
--- OUTSIDE RECORDS SUMMARY | 2025-05-15 09:53 | XMS_ITS | Encounter Summary ---
Author Organization [facility] Address [address] [place] [address] Care Team Providers Care Rn Internship Name Role Phone Joanna Wyman NP Unavailable [phone] Jose Guadalupe Villafuerte MD Primary Care Provider [phone] Shaikh PIA Chambers Unavailable [phone] Encounter Details Date Type Department Care Team (Late st Contact Info) Description 05/03/2025 Bamboo flow[facility] [address] [place] [address] Jose Guadalupe Villafuerte MD [address] [place] [address] Social History Tobacco Use Types Packs/Day Years [...] How often do you attend chur or episcopal services? More than 4 times per year 09/08/2023 Do you belong to any clubs o r organizations such as advent groups, unions, fraternal or athletic groups, or [...] Recorded Patient Health Questionnaire-2 Score 0 06/14/2024 [facility] of Occupat ional Health - Occupational Stress [...] a mcfp (including now)? No 09/08/2023 Comments No Sex and Gender Information Value Date Recorded Sex Assigned at Not on file Legal Sex Female 8:27 PM EDT Gender Identity Not on file Sexual Orientation Not on file documented as of this encounter Plan of Treatment Upcoming Encounters Date Type Department Care Team (Late st Contact Info) Description 08/03/2025 1:00 PM EDT Office Visit [facility] [address] [place] [address] Jose Guadalupe Villafuerte MD [address] [place] [address] documented as of this encounter Visit Diagnoses Not on filedocumented in this encounter Care Teams Rn Internship Relationship Specialty Start Date End Date Jose Guadalupe Villafuerte MD [address] [place] [address] PCP - General Family Medicine 08/04/24 Shaikh Chambers MD [address] [place] [address] PCP - Yoanna FERNANDEZ 10/05/24 Joanna Wyman NP Nurse Practitioner Family Medicine 05/12/24 documented as of this encounter
--- OUTSIDE RECORDS SUMMARY | 2025-05-15 09:53 | XMS_ITS | Encounter Summary ---
Author Organization [facility] Address [address] [place] [address] Care Team Providers Care Vulcanizer Name Role Phone Joanna Bryant NP Unavailable [phone] Unallocated, Evie Provider Primary Care Provi royce Jose Guadalupe Villafuerte MD Primary Care Provider [phone] Shaikh PIA Chambers Unavailable [phone] Encounter Details Date Type Department Care [...] any clubs o r organizations such as mosque groups, unions, fraternal [...] Recorded Patient Health Questionnaire-2 Score 0 [facility] Answer Date Recorded [...] place to sleep or slept in a half-way (including now)? No 09/08/2023 Comments Unknown Sex [...] Office Visit [facility] [address] [place] [address] Jose Guadalupe Villafuerte MD [address] [place] [address] documented as of this encounter Procedures Procedure Name Priority Date/Time Associated Diagnosis Comments XR KNEE STANDING BI 08/01/2024 6 :46 AM EDT documented in this encounter Results * XR KNEE STANDING BI (08/01/2024 6:46 AM EDT) Anatomical Region Laterality Modality Radiographic Sona ging 08/01/2024 6:46 AM EDT Narrative 08/01/2024 6:49 AM EDT [facility] [place] [id number] XRay Report Signed Patient: BLANCA MOE MR#: [id number] : 1960 Acct:[id number] Age/Sex: 64 / F ADM Date: 07/29/24 Loc: [facility] Attending Dr: JOANNA BRYANT Ordering Physician: JOANNA BRYANT Date of Service: 07/29/24 Procedure(s): XR knee standing BI Accession Number(s): [id number] cc: JOANNA BRYANT [place] [address] Patient Name: BLANCA MOE MRN: [id number] date: 1960 Sex: F Assigned Patient Location: [facility] Current Patient Location: Accession/Order Number: [id number] Exam Date: 07/29/2024 14:10 Report Date: 08/01/2024 [...] marked narrowing of the medial compartment with slfl-tk-zzan articulation. Large periarticular degenerative osteophytes involving the [...] Millan M.D. Signed By: 08/01/2449 DD/ TD/TT: Basket Hand Weaver: Procedure Note Radiology, Radiologist, MD - 08/01/2024 [place] [address] XRay Report Signed Patient: BLANCA MOE LMR#: [id number] : 1960cct:[id number] Age/Sex: 64 / FADM Date: 07/29/24 Loc: [facility] Attending Dr: JOANNA BRYANT Ordering Physician: JOANNA BRYANT Date of Service: 07/29/24 Procedure(s): XR knee standing BI Accession Number(s): [id number] cc: JOANNA BRYANT [facility] [place] [address] Patient Name: BLANCA MOE MRN: [id number] date: 1960 Sex: F Assigned Patient Location: [facility] Current Patient Location: Accession/Order Number: [id number] Exam Date: 07/29/2024 14:10 Report Date: 08/01/2024 [...] marked narrowing of the medial compartment with vltj-dz-ayvy articulation. Large periarticulardegenerative osteophytes involving the medial [...] Millan M.D. Signed By:08/01/2449 DD/ 0646 TD/TT: Basket Hand Weaver: Joanna Bryant ENCYCLOPEDIA RESEARCH WORKER IMG XR PROCEDURES Final Result documented in this encounter Visit Diagnoses Not on filedocumented in this encounter Care Teams Vulcanizer Relationship Specialty Start Date End Date Unallocated, [facility], [address] [place] [address] PCP - General Family Medicine 07/25/24 08/03/24 Jose Guadalupe Villafuerte MD [address] [place] [address] PCP - General Family Medicine 08/04/24 Shaikh Chambers MD [address] [place] [address] PCP - Yoanna FERNANDEZ 10/05/24 Joanna Bryant NP Nurse Practitioner Family Medicine 05/12/24 documented as of this encounter
--- OUTSIDE RECORDS SUMMARY | 2025-05-15 09:53 | XMS_ITS | Encounter Summary ---
Author Organization [facility] Address [address] [facility] [place] [address] Care Team Providers Care Equine Dentist Name Role Phone Joanna Wyman NP Unavailable [phone] Jose Guadalupe Villafuerte MD Primary Care Provider [phone] Shaikh PIA Chambers Unavailable [phone] Encounter Details Date Type Department Care Team (Late st Contact Info) Description 01/10/2025 Orders Only [facility] [address] [place] [address] Jose Guadalupe Villafuerte MD [address] [place] [address] Social History Tobacco Use Types Packs/Day Years [...] How often do you attend chur or muslim services? More than 4 times [...] Recorded Patient Health Questionnaire-2 Score 0 06/14/2024 [facility] [...] 08/03/2025 1:00 PM EDT [facility] [address] [place] [address] Jose Guadalupe Villafuerte MD [address] [place] [address] documented as of this encounter Procedures Procedure [...] on filedocumented in this encounter Care Teams Equine Dentist Relationship Specialty Start Date End Date Jose Guadalupe Villafuerte MD [address] [place] [address] PCP - General Family Medicine 08/04/24 Shaikh Chambers MD [address] [place] [address] PCP - Yoanna FERNANDEZ 10/05/24 Joanna Wyman NP Nurse Practitioner Family Medicine 05/12/24 documented as of this encounter
--- OUTSIDE RECORDS SUMMARY | 2025-05-15 09:53 | XMS_ITS | Encounter Summary ---
Author Organization [facility] Address [address] [facility] [place] [address] Care Team Providers Care Delivery Engineer Name Role Phone Joanna Wyman NP Unavailable [phone] Jose Guadalupe Villafuerte MD Primary Care Provider [phone] Shaikh PIA Chambers Unavailable [phone] Encounter Details Date Type Department Care Team (Late st Contact Info) Description 12/09/2024 Orders Only [facility] [address] [place] [address] Jose Guadalupe Villafuerte MD [address] [place] [address] Social History Tobacco Use Types Packs/Day Years [...] How often do you attend chur or alevism services? More than 4 times per year 09/08/2023 Do you belong to any clubs o r organizations such as sikh groups, unions, fraternal or athletic groups, or [...] Recorded Patient Health Questionnaire-2 Score 0 06/14/2024 [facility] - Occupational [...] place to sleep or slept in a prison (including now)? No 09/08/2023 Comments No Sex [...] Office Visit [facility] [address] [place] [address] Jose Guadalupe Villafuerte MD [address] [place] [address] documented as of this encounter Visit Diagnoses Not on filedocumented in this encounter Care Teams Delivery Engineer Relationship Specialty Start Date End Date Jose Guadalupe Villafuerte MD [address] [place] [address] PCP - General Family Medicine 08/04/24 Shaikh Chambers MD [address] [place] [address] PCP - Yoanna FERNANDEZ 10/05/24 Joanna Wyman NP Nurse Practitioner Family Medicine 05/12/24 documented as of this encounter
--- OUTSIDE RECORDS SUMMARY | 2025-05-15 09:53 | XMS_ITS | Clinical Summary ---
Demographics Address [address] [place] [address] Home Phone Mobile Phone Preferred Language en Marital Status Single Baptism Affiliation Unknown Race White Ethnic Group Not or Lati no Author Organization [facility] Address [address] [place] [address] Care Team Providers Care Apple Solutions Consultant Name Role Phone Unavailable Primary Care Provider [...]
--- OUTSIDE RECORDS SUMMARY | 2025-05-15 09:53 | XMS_ITS | Encounter Summary ---
Author Organization [facility] Address [address] [place] [address] Care Team Providers Care Rod Bending Machine Operator Name Role Phone Joanna Wyman NP Unavailable [phone] Jose Guadalupe Villafuerte MD Primary Care Provider [phone] Shaikh PIA Chambers Unavailable [phone] Reason for Visit * Reason Onset Date Comments Med Refill 05/10/2025 Encounter Details Date Type Department Care Team (Late st Contact Info) Description 05/10/2025 [facility] [address] [place] [address] Jose Guadalupe Villafuerte MD [address] [place] [address] Primary hypertension Social History Tobacco Use Types Packs/Day Years [...] How often do you attend chur or baptism services? More than 4 times per year 09/08/2023 Do you belong to any clubs o r organizations such as christianity groups, unions, fraternal or athletic groups, or [...] Recorded Patient Health Questionnaire-2 Score 0 06/14/2024 [facility] - Occupational [...] a chcf (including now)? No 09/08/2023 Comments No Sex and Gender Information Value Date Recorded Sex Assigned at Not on file Legal Sex Female 8:27 PM EDT Gender Identity Not on file Sexual Orientation Not on file documented as of this encounter Miscellaneous Notes * Telephone Encounter - RAEGAN CROSS - 05/10/2025 12:47 PM EDT MEDICATION SENT TO [facility] documented in this encounter Plan of Treatment Upcoming Encounters Date Type Department Care Team (Late st Contact Info) Description 08/03/2025 1:00 PM EDT Office Visit [facility] [address] [place] [address] Jose Guadalupe Villafuerte MD [address] [place] [address] documented as of this encounter Visit Diagnoses Diagnosis Primary hypertension Unspecified essential hypertension documented in this encounter Care Teams Rod Bending Machine Operator Relationship Specialty Start Date End Date Jose Guadalupe Villafuerte MD [address] [place] [address] PCP - General Family Medicine 08/04/24 Shaikh Chambers MD [address] [place] [address] PCP - Yoanna FERNANDEZ 10/05/24 Joanna Wyman NP Nurse Practitioner Family Medicine 05/12/24 documented as of this encounter
[2025-05-15 10:09] VITALS: BP 153/83; PULSE 70; TEMP 36.4; O2SAT 96
[2025-05-15 10:35] VITALS: BP 128/65; BP 130/60; PULSE 65; PULSE 66; O2SAT 97
[2025-05-15] MEDS: IOHEXOL 240 MG/ML - 10 ML VIAL 12 MG INJ (10:37)
[2025-05-15] MEDS: DEXAMETHASONE SOD PHOS 10 MG/ML VIAL INJ (10:37)
[2025-05-15] MEDS: BUPIVACAINE HCL 0.25% PF 25 MG/10 ML VIAL INJ (10:37)
[2025-05-15] MEDS: LIDOCAINE HCL 2% 400 MG/20 ML MDV INJ (10:38)
--- NOTE | 2025-05-15 10:41 | P.ON_ITS ---
Date of procedure: 05/15/25 Pre-op diagnosis: Pain due to cervical stenosis, M54.12 Post-op diagnosis: same as pre-op Procedure: Procedure: Left C5-6, 6-7 transforaminal epidural steroid injection Medications: Bupivacaine 0.25% 1cc, lidocaine 2% 1cc, dexamethasone 10mg The patient was seen and examined in the preoperative holding area.? Informed consent was obtained and placed on the chart.? Patient was brought to the medical procedure unit and placed in the prone position where a timeout was completed verifying the correct patient, procedure site, position, and planned special equipment using sterile aseptic technique.? Under direct fluoroscopic visualization a 25-gauge Quincke tipped spinal needle was advanced to the designated neural foramen where contrast dye was injected to show adequate spread.? The needle was inserted at level left C5-6. There was no evidence of vascular or adverse uptake.? Epidural spread was appreciated.? The above- mentioned injectate was then placed in a 1.5 mL aliquot preceded by negative aspiration.? The needle was removed. The needle was inserted and the procedure repeated at level left C6-7.? The surgery site was covered.? Patient was taken to the postprocedural recovery area and monitored for an appropriate length of time before found suitable for discharge in the accompaniment of a responsible adult. Anesthesia: Local Surgeon: Chikis May Pathology: none sent Condition: stable Disposition: no change
== END 2025-05-15 10:45 | disposition home or self-care (01) ==
LOC: SURGOUT 09:51
PROVIDERS: PCP Family Medicine; Visit Provider Anesthesiology
DX: M54.12 Radiculopathy, cervical region (principal)
CPT/HCPCS: 64479; 64480; J0665; J1100; Q9966

== ENCOUNTER 2025-05-25 13:54 | Outpatient (OUT) | payer MEDICARE, SELFPAY ==
--- OUTSIDE RECORDS SUMMARY | 2025-05-25 14:03 | XMS_ITS | CCD ---
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 Role Phone UNKNOWN, PHYSICIAN Primary Care [...] SHAIKH Gerson CHAMBERS Admitting Unavailable CAITY, DR SLIME Ashraf Consulting Unavailable SHAIKH Gerson CHAMBERS Primary Care Unavailable SHAIKH Gerson CHAMBERS Consulting Unavailable Reyes PALACIO, Primary Care Provider [phone] Jackie PALACIO, Jose Guadalupe Primary Care Provider Zamzam CHEF DE CUISINE, Maisha Unavailable Zachlocatdorian PALACIO, Tamys Provider Primary Care Provi royce Jackie PALACIO, Jose Guadalupe Primary Care Provider [phone] Zamzam CHEF DE CUISINE, Maisha Unavailable Reyes PALACIO, Unavailable Lalo PALACIO, David Henderson Attending Unavailable Lalo PALACIO, Andrius Vzach Attending Unavailable Lalo PALACIO, Andrius Beatriz Attending Unavailable JACKIE, JOSE GUADALUPE Attending Unavailable JACKIE, JOSE GUADALUPE Attending Unavailable MAISHA WYMAN Attending UnavailDUNCAN Lackey Attending Unavailable MAISHA WYMAN Referring UnavailMAISHA Gordon Attending Unavailvivian coyne Allergies Allergy Classification Reported Allergen(s) Allergy Type Date of Onset Reaction(s) Facility Aspirin (1 source) Aspirin; Translations: [ASPIRIN] Drug Allergy 12-26-2020 [facility] Repository (1 source) Amino Acids Drug Allergy [facility] Repository (1 source) Aspirin Drug Allergy [facility] Repository (20 sources) Aluminum aspirin Drug Allergy 04-30-2023 [facility] care Medications Current Medications Medication Drug Class(es) Dates Sig (Normalized) Sig (Original) [id number] 200 actuat albuterol 0.09 mg/actuat metered dose inhaler (20 sources) beta2-Adrenergic Agonist Start: 03-15-2024 End: 07-14-2024 take 2 puff(s) by inhalation every four hours for wheezing albuterol HFA 90 mcg/act inhaler Indications: Suspected chronic obstructive pulmonary disease based on initial evaluation ([facility]) Inhale 2 puffs every 4 (four) [...] without current pathological fracture, unspecified osteoporosis type ([facility]) Take 1 tablet (35 mg) by mouth [...] (Coreg) 25 MG tablet Indications: Primary hypertension Take 1 tablet (25 mg) by mouth in the morning and 1 tablet (25 mg) in the evening. Take with meals. 180 tablet 01/10/2025 Active Start: 01-12-2024 End: 01-08-2025 take 1 [...] 1000 mg oral capsule (20 sources) Evening [place]rales Oil 1000 MG capsule as directed Orally [...] / salmeterol 0.05 mg/actuat dry powder inhaler (20 sources) Corticosteroid, beta2-Adrenergic Agonist Start: 03-06-2025 take 1 puff(s) by inhalation once daily Fluticasone-Salmeterol (Advair Diskus) 100-50 MCG/ACT aerosol powder Indications: Suspected chronic obstructive pulmonary disease based on initial evaluation ([facility]) , Mild intermittent asthma without complication ([facility]) Inhale 1 puff Daily 60 each 2 03/06/2025 Active Start: 07-13-2024 End: 09-13-2024 take 1 puff(s) by inhalation once daily Fluticasone-Salmeterol (Advair Diskus) 100-50 MCG/ACT aerosol powder Indications: Suspected chronic obstructive pulmonary disease based on initial evaluation ([facility]) , Mild intermittent asthma without complication ([facility]) Inhale 1 puff Daily 60 each [...] (HYDRODiuril) 25 MG tablet Indications: Primary hypertension Take 1 tablet (25 mg) [...] (Cozaar) 100 MG tablet Indications: Primary hypertension Take 1 tablet (100 mg) [...] (20 sources) Nonsteroidal Anti-inflammatory Drug Start: 12-13-2024 End: 04-10-2025 take 1 tablet by mouth twice daily as needed for pain nabumetone (Relafen) 500 MG tablet Indications: Chronic left shoulder pain , Chronic pain of left knee Take 1 tablet (500 mg) by mouth 2 (two) times a day as needed for mild pain 60 tablet 3 04/10/2025 Active Start: 11-14-2024 take 1 tablet by latha twice daily at bedtime nabumetone (Relafen) 500 [...] Active oxyCODONE hydrochloride 5 mg oral tablet (20 sources) Opioid Agonist Start: 10-29-2024 End: 05-26-2025 take 1 tablet by mouth once oxyCODONE (Roxicodone) 5 MG immediate release tablet Indications: Chronic left shoulder pain , Chronic pain of left knee Take 1 tablet (5 mg) by mouth every 12 (twelve) hours if needed for moderate pain 60 tablet 04/26/2025 05/26/2025 Active Start: 04-21-2024 End: 10-26-2024 take 1 tablet [...] (Zocor) 20 MG tablet Indications: Mixed hyperlipidemia Take 1 tablet (20 mg) by mouth 1 (one) time each day at the same time 90 tablet 3 12/13/2024 Active simvastatin (Zoc or) 20 MG tablet 1 (one) time each day at the same time. 0 Active traZODone hydrochloride 50 mg oral tablet (2 sources) Serotonin Reuptake Inhibitor Start: 05-03-2025 take 1 tablet by mouth at bedtime traZODone (Desyrel) 50 MG tablet Indications: Primary insomnia Take 1 tablet (50 mg) by mouth at bedtime 30 tablet 2 05/03/2025 Active Turmeric Curcumin 500 MG capsule (20 sources) Turmeric Curcumi n 500 MG [...] 2 06/14/2024 09/13/2024 Discontinued (Med list cleanup) Problems Active Problems Problem Classification Problem Date Documented Da te Episodic/Chronic Chronic obstructive pulmonary disease and bronchiectasis (20 sources) Suspected respiratory disease; Translations: [Chronic obstructive pulmonary disease, unspecified] Onset: 4 07-07-2024 Chronic Diabetes mellitus without complication (5 sources) Type 2 diabetes mellitus without complications; Translations: [TYPE 2 DM WITHOUT COMPLICATIONS] Onset: 2 Chronic Disorders of lipid metabolism (20 sources) Hyperlipidemia, unspecified; Translations: [Mixed hyperlipidemia] Onset: 3 09-08-2023 Chronic Essential hypertension (20 sources) Essential (primary) hypertension; Translations: [Essential hypertension] Onset: 3 09-08-2023 Chronic Gout and other crystal arthropathies (4 sources) Gout, unspecified; Translations: [GOUT UNSPECIFIED] Onset: 3 Chronic Miscellaneous mental health disorders (4 sources) Primary insomnia; Translations: [Primary insomnia] Onset: 5 05-03-2025 Chronic Mood disorders (15 sources) Recurrent major depressive episodes, mild ; Translations: [Major depressive disorder, recurrent, mild] Onset: 5 12-20-2024 Chronic Osteoarthritis (20 sources) Primary osteoarthritis, left shoulder; Translations: [Primary osteoarthritis, right shoulder] Onset: 3 Resolved: 5 04-30-2023 Chronic Osteoporosis (15 sources) Osteoporosis; Translations: [Age-related osteoporosis without current pathological fracture] Onset: 5 06-21-2024 Chronic Other aftercare (4 sources) Encounter for surgical aftercare following surgery on the circulatory system; Translations: [ENC SURG [facility] FLW SURG CIRC SYS] Onset: 3 Episodic Other connective tissue disease (2 sources) History of total replacement of right hip joint; Translations: [Presence of right artificial hip joint] 08-16-2024 Chronic Other nervous system disorders (20 sources) Chronic pain; Translations: [Other chronic pain] Onset: 3 Resolved: 5 04-30-2023 Chronic Other non-traumatic joint disorders (12 sources) Rotator cuff arthropathy of left shoulder; [...] Episodic Other nutritional; endocrine; and metabolic disorders (12 sources) Obesity caused by energy imbalance; Translations: [...] edema; Translations: [LOCALIZED EDEMA] Onset: 3 Episodic Screening and history of mental health and substance abuse codes (10 sources) Personal history of nicotine dependence; Translations: [Ex-smoker] Onset: 2 Episodic Unclassified (5 sources) Chronic pain of [...] intermittent asthma, uncomplicated] Resolved: 12-20-2024 07-13-2024 Chronic Diabetes mellitus without complication (12 sources) Prediabetes; Translations: [Prediabetes] Onset: 12-20-2024 12-20-2024 Episodic Other aftercare (12 sources) Long-term current use of drug therapy; 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] Onset: 12-20-2024 12-20-2024 Episodic Other circulatory disease (20 sources) Upper respiratory [...] Chronic Other non-traumatic joint disorders (20 sources) Pain in left knee; Translations: [Pain in joint, lower leg] Onset: 12-26-2022 Resolved: 12-20-2024 11-12-2023 Episodic Other non-traumatic joint disorders (20 sources) Hip pain; Translations: [Pain in unspecified hip] Onset: 01-08-2021 Resolved: 12-20-2024 04-30-2023 Episodic Other non-traumatic joint disorders (11 sources) Pain in unspecified hip; Translations: [Pain in joint, pelvic region and thigh] Onset: 04-30-2023 Resolved: 12-20-2024 12-20-2024 Episodic Results Test Name Value Interpretation Reference Range Facility MR Cervical spine WO contras ton 03-28-2025 [place] [address] Magnetic Resonance Report Signed Patient: BLANCA MOE MR#: [id number] : 1960 Acct:[id number] Age/Sex: 65 / F ADM Date: 03/28/25 Loc: MRI Attending Dr: David May M.D. Ordering Physician: David May M.D. Date of Service: 03/28/25 Procedure(s): MR cervical spine wo con Accession Number(s): [id number] cc: David May M.D.; Jose Guadalupe Mejia M.D. [place] [address] Patient Name: BLANCA MOE MRN: [facility]:[id number] date: 1960 Sex: F Assigned Patient Location: MRI Current Patient Location: MRI Accession/Order Number: [id number] Exam Date: 03/28/2025 16:09 Report Date: 03/28/2025 16:15 At the request of: DAVID MAY MD Procedure: MR cervical spine wo [...] Saucedo M.D. 03/28/2025 4:15 PM Dictation Location: [place] [address] Electronically authenticated by: [id number] Date: 03/28/2025 16:15 Dictated By: Bi Saucedo M.D. Signed By: 03/28/251617 DD/ 14 TD/TT: Rope Maker: [facility] Radiology, Radiologist, MD - 03/28/2025 [place] [address] Magnetic Resonance Report Signed Patient: BLANCA MOE MR#: [id number] : 1960 Acct:[id number] Age/Sex: 65 / F ADM Date: 03/28/25 Loc: MRI Attending Dr: David May M.D. Ordering Physician: David May M.D. Date of Service: 03/28/25 Procedure(s): MR cervical spine wo con Accession Number(s): [id number] cc: David May M.D.; Jose Guadalupe Mejia M.D. The [place] [id number] Patient Name: BLANCA MOE MRN: [facility]:[id number] date: 1960 Sex: F Assigned Patient Location: MRI Current Patient Location: MRI Accession/Order Number: [id number] Exam Date: 03/28/2025 16:09 Report Date: 03/28/2025 16:15 At the request of: DAVID MAY MD Procedure: MR cervical spine wo [...] Saucedo M.D. 03/28/2025 4:15 PM Dictation Location: [place] [address] Electronically authenticated by: [id number] Y Date: 03/28/2025 16:15 Dictated By: Bi Saucedo M.D. Signed By: 03/28/251617 DD/ 14 TD/TT: Rope Maker: [facility] Radiology Study observation (narrative) [facility] MR Cervical spine WO contras tOrdered By: Radiologist Radiology on 03-28-2025 [facility] Work Phone: ALL CBC WITH AUTO DIFFon BASOPHILS ABSOLUTE AUTO 0 [facility] Basophils/100 WBC (Bld) 0.5 % 0.2 - 2.0 % [facility] Eosinophils/100 WBC (Bld) 1.6 % 0.9 - 7.0 % [facility] Erythrocyte distribution width (RBC) [Ratio] 13.2 % 11.0 - 15.0 % [facility] Hematocrit (Bld) [Volume fraction] 35.2 % Low 36.0 - 48.0 % [facility] Hemoglobin (Bld) [Mass/Vol] 11.9 g/dL Low 12.0 - 16.0 g/dL [facility] IMMATURE GRANULOCYTES ABS AUTO 0.03 [facility] Immature granulocytes/100 WBC (Bld) 0.3 % 0.0 - 0.5 % [facility] Interpretation and review of laboratory results Abnormal [facility] LYMPHOCYTES ABSOLUTE AUTO 1.8 [facility] Lymphocytes/100 WBC (Bld) 21 % 20.5 - 60.0 % [facility] MCH (RBC) [Entitic mass] 32.9 pg 26.7 - 34.0 pg [facility] MCHC (RBC) [Mass/Vol] 33.8 g/dL 29.9 - 35.2 g/dL [facility] MCV (RBC) [Entitic vol] 97.2 fL 81.0 - 99.0 fL [facility] MONOCYTES ABSOLUTE AUTO 0.7 [facility] Monocytes/100 WBC (Bld) 7.6 % 1.7 - 12.0 % [facility] NEUTROPHILS ABSOLUTE AUTO 6 [facility] Neutrophils/100 WBC (Bld) 69 % 43.0 - 75.0 % [facility] Platelet mean volume (Bld) [Entitic vol] 10.3 fL 9.5 - 13.5 fL [facility] EO # 0.1 [facility] PLT 254 [facility] RBC 3.62 Low [facility] WBC 8.7 [facility] ALL HEMOGLOBINon 07-12-2024 Hemoglobin (Bld) [Mass/Vol] 11.3 g/dL Low 12.0 - 16.0 g/dL [facility] Interpretation and review of laboratory results Abnormal [facility] VC CONSULT FOLLOWUPon 2022 VC CONSULT FOLLOWUP Patient: BLANCA MOE Exam Date: 03/03/2023 : 1960 Gender:F Ordering : DR MARIA ANTONIA CONRAD M.D. Admission #: [id number] Family : Order #: [id number] CLICK HERE TO VIEW EXAM RADIOLOGY REPORT [...] Conrad MD on 03/03/2023 at 13:46 Normal [facility] VC EXT VENOUS RT LIMITEDon 0 03-03-2023 VC EXT VENOUS RT LIMITED Patient: BLANCA MOE Exam Date: 03/03/2023 : 1960 Gender:F Ordering : DR MARIA ANTONIA CONRAD M.D. Admission #: [id number] Family : Order #: [id number] CLICK HERE TO VIEW EXAM RADIOLOGY REPORT [...] Conrad MD on 03/03/2023 at 13:10 Normal [facility] VC ENDOVENOUS ABL 1ST V RTon 02-25-2023 VC ENDOVENOUS ABL 1ST V RT Patient: BLANCA MOE Exam Date: 02/25/2023 : 1960 Gender:F Ordering : DR MARIA ANTONIA CONRAD M.D. Admission #: [id number] Family : Order #: [id number] CLICK HERE TO VIEW EXAM RADIOLOGY REPORT [...] Millan M.D. on 02/25/2023 at 15:01 Normal [facility] VC CONSULT FOLLOWUPon 2022 VC CONSULT FOLLOWUP Patient: BLANCA MOE Exam Date: 02/09/2023 : 1960 Gender:F Ordering : DR MARIA ANTONIA CONRAD M.D. Admission #: [id number] Family : Order #: [id number] CLICK HERE TO VIEW EXAM RADIOLOGY REPORT [...] Millan M.D. on 02/09/2023 at 11:43 Normal [facility] VC EXT VENOUS LT LIMITEDon 0 5-08-2023 VC EXT VENOUS LT LIMITED Patient: BLANCA MOE Exam Date: 02/09/2023 : 1960 Gender:F Ordering : DR MARIA ANTONIA CONRAD M.D. Admission #: [id number] Family : Order #: [id number] CLICK HERE TO VIEW EXAM RADIOLOGY REPORT [...] Millan M.D. on 02/09/2023 at 11:35 Normal [facility] VC ENDOVENOUS ABL 1ST V LTon 02-02-2023 VC ENDOVENOUS ABL 1ST V LT Patient: BLANCA MOE Exam Date: 02/02/2023 : 1960 Gender:F Ordering : DR MARIA ANTONIA CONRAD M.D. Admission #: [id number] Family : Order #: [id number] CLICK HERE TO VIEW EXAM RADIOLOGY REPORT [...] Millan M.D. on 02/02/2023 at 14:17 Normal [facility] VC COMP CONSULTATIONon 01-08 VC COMP CONSULTATION Patient: BLANCA MOE Exam Date: 01/08/2023 : 1960 Gender:F Ordering : DR MARIA ANTONIA CONRAD M.D. Admission #: [id number] Family : Order #: [id number] CLICK HERE TO VIEW EXAM RADIOLOGY REPORT [...] saphenous, mild to moderate right small saphenous mbho-rr-zhkwprig left anterior accessory saphenous vein venous insufficiency [...] physical exam and consultation Dictated by: Maria Antoina Conrad MD on 01/08/2023 at 14:56 Approved by: Maria Antonia Conrad MD on 01/08/2023 at 15:14 Normal [facility] VC VENOUS REFLUX SARITHA LMTon 0 01-08-2023 VC VENOUS REFLUX SARITHA LMT Patient: BLANCA MOE Exam Date: 01/08/2023 : 1960 Gender:F Ordering : DR MARIA ANTONIA CONRAD M.D. 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 [...] Bilateral incompetent varicose veins 5. Left incompetent merchandise clerk veins 6. Left suprapatellar fluid collection likely joint effusion and popliteal lesion likely a cyst Dictated by: Maria Antonia Conrad MD on 01/08/2023 at 13:50 Approved by: Maria Antonia Conrad MD on 01/08/2023 at 13:[address] [facility] XR KNEE SARITHA 4V or >on [...] SLIME MILLAN Date: 2022-12-17 16:[address] [facility] XR SHOULDER SARITHA 2V or >on [...] narrowing of the glenohumeral joints with likely anhm-gs-efqu contact. Degenerative osteophyte along the inferior articular [...] SLIME MILLAN Date: 2022-12-17 16:[address] [facility] CBC AUTO DIFFon 12-15-2022 BASO # 0.1 103/ul Normal 0.0-0.1 [facility] Comment on above: Performed By: #### C BC ####[facility] [address] [place] [address]Dr. Sarah Napoles Basophils/100 WBC (Bld) 0.8 % Normal 0.2-2.[address] [facility] Comment on above: Performed By: #### C BC ####[facility] [address] [place] [id number] Napoles EO # 0.2 103/ul Normal 0.0-0.[address] [facility] Comment on above: Performed By: #### C BC ####[facility] [address] [place] [address]DrJudy Napoles Eosinophils/100 WBC (Bld) 2.3 % Normal 0.9-7.[address] [facility] Comment on above: Performed By: #### C BC ####[facility] [address] [place] [address]DrJudy Napoles Erythrocyte distribution width (RBC) [Ratio] 13.2 % Normal 11.0-15.0 [facility] Comment on above: Performed By: #### C BC ####[facility] [address] [place] [address]Dr. Sarah Napoles Hematocrit (Bld) [Volume fraction] 34.3 % Critically low 36.0-48.0 [facility] Comment on above: Performed By: #### C BC ####[facility] [address] [place] [address]Dr. Sarah Napoles Hemoglobin (Bld) [Mass/Vol] 11.5 g/dL Critically low 12.0-16.0 [facility] Comment on above: Performed By: #### C BC ####[facility] [address] [place], [place] [address]Dr. Sarah Napoles IG # 0.02 10e3/ul Normal 0.00-0.[address] [facility] Comment on above: Performed By: #### C BC ####[facility] [address] [place], [place] [address]Dr. Sarah Napoles IG % 0.2 % Normal 0.0-0.5 [facility] Comment on above: Performed By: #### C BC ####[facility] [address] [place], [place] [address]Dr. Sarah Napoles LYMPH # 1.8 103/ul Normal 1.2-3.[address] [facility] Comment on above: Performed By: #### C BC ####[facility] [address] [place], [place] [address]Dr. Sarah Napoles Lymphocytes/100 WBC (Bld) 19.8 % Critically low 20.5-60.[address] [facility] Comment on above: Performed By: #### C BC ####[facility] [address] [place], [place] [address]Dr. Sarah Napoles MANUAL DIFF REQ NO Normal [facility] Comment on above: Performed By: #### C BC ####[facility] [address] [place] [address]Dr. Sarah Napoles MCH (RBC) [Entitic mass] 32.2 pg Normal 26.7-34.0 [facility] Comment on above: Performed By: #### C BC ####[facility] [address] [place] [address]Dr. Sarah Dony MCHC (RBC) [Mass/Vol] 33.5 g/dL Normal 29.9-35.[address] [facility] Comment on above: Performed By: #### C BC ####[facility] [address] [place] [address]Dr. Sarah Napoles MCV (RBC) [Entitic vol] 96.1 fL Normal 81.0-99.0 [facility] Comment on above: Performed By: #### C BC ####[facility] [address] [place], [place] [address]Dr. Sarah Napoles MONO # 0.8 103/ul Normal 0.3-0.[address] [facility] Comment on above: Performed By: #### C BC ####[facility] [address] [place], [place] [address]Dr. Sarah Napoles Monocytes/100 WBC (Bld) 9.5 % Normal 1.7-12.[address] [facility] Comment on above: Performed By: #### C BC ####[facility] [address] [place], [place] [address]Dr. Sarah Napoles NEUT # 6.0 103/ul Normal 1.4-6.[address] [facility] Comment on above: Performed By: #### C BC ####[facility] [address] [place], [place] [address]Dr. Sarah Napoles Neutrophils/100 WBC (Bld) 67.4 % Normal 43.0-75.[address] [facility] Comment on above: Performed By: #### C BC ####[facility] [address] [place], [place] [address]Dr. Sarah Napoles Platelet mean volume (Bld) [Entitic vol] 10.1 fL Normal 9.5-13.[address] [facility] Comment on above: Performed By: #### C BC ####[facility] [address] [place], [place] [address]Dr. Sarah Naploes PLT 283 103/ul Normal 150-450 [facility] Comment on above: Performed By: #### C BC ####[facility] [address] [place] [address]Dr. Sarah Napoles RBC 3.57 106/ul Critically low 4.20-5.40 [facility] Comment on above: Performed By: #### C BC ####[facility] [address] [place] [address]Dr. Sarah Napoles WBC 8.8 103/ul Normal 4.0-11.0 [facility] Comment on above: Performed By: #### C BC ####[facility] [address] [place] [address]Dr. Sarah Napoles GLYCOHEMOGLOBIN A1Con 2022 ADA RECOMMENDATION SEE BELOW Normal [facility] Comment on above: Result Comment: ADA RECOMMENDED LIMIT 4.0 - 6.0 ADA THERAPEUTIC TARGET < 7.0 ACTION SUGGESTED > 7.0 Performed By: #### A 1C ####[facility] [address] [place] [address]Dr. Sarah Napoles Glucose [Mass/Vol] 105 mg/dL Normal [facility] Comment on above: Performed By: #### A 1C ####[facility] [address] [place] [address]Dr. Sarah Napoles HbA1c (Bld) [Mass fraction] 5.3 % Normal 4.5-6.2 [facility] Comment on above: Performed By: #### A 1C ####[facility] [address] [place] [address]Dr. Sarah Napoles LIPID PROFILEon 12-15-2022 CHOL-HDL RATIO NORM SEE BELOW Normal [facility] Comment on above: Result Comment: 3.3 - 4.4 LOW RISK 4.4 - 7.1 AVERAGE RISK 7.1 - 11.0 MODERATE RISK >11.0 HIGH RISK Performed By: #### L IPID, CMP, URIC ####[facility] [address] [place] [address]Dr. Sarah Napoles Cholesterol [Mass/Vol] 160 mg/dL Normal <=200 [facility] Comment on above: Performed By: #### L IPID, CMP, URIC ####[facility] [address] [place] [address]Dr. Sarah Napoles Cholesterol in HDL [Mass/Vol] 62 mg/dL Critically high 40-[address] [facility] Comment on above: Performed By: #### L IPID, CMP, URIC ####[facility] [address] [place] [address]Dr. Charlinecassie Napoles Cholesterol in LDL [Mass/Vol] 75.2 mg/dL Normal [facility] Comment on above: Performed By: #### L IPID, CMP, URIC ####[facility] [address] [place] [address]Dr. Charlinecassie Dony Cholesterol.total/Ch olesterol in HDL [Mass ratio] 2.6 {ratio} Normal [facility] Comment on above: Performed By: #### L IPID, CMP, URIC ####[facility] [address] [place] [address]Dr. Sarah Napoles HDL NORMAL > or = 60 mg/dl - LO W CARDIOVASCULAR RISK <40 mg/dl - HIGH CARDIOVASCULAR RISK Normal [facility] Comment on above: Performed By: #### L IPID, CMP, URIC ####[facility] [address] [place] [address]Dr. Sarah Napoles LDL CALC NORMAL SEE BELOW Normal [facility] Comment on above: Result Comment: <100 mg/dl OPTIMAL 100 - 129 mg/dl NEAR OR ABOVE OPTIMAL 130 - 159 mg/dl BORDERLINE HIGH 160 - 189 mg/dl HIGH >190 mg/dl VERY HIGH Performed By: #### L IPID, CMP, URIC ####[facility] [address] [place] [address]Dr. Charlinecassie Dony Triglyceride [Mass/Vol] 114 mg/dL Normal <=[address] [facility] Comment on above: Performed By: #### L IPID, CMP, URIC ####[facility] [address] [place] [address]Dr. Sarah Napoles VLDL CALC 22.8 mg/dL Normal [facility] Comment on above: Performed By: #### L IPID, CMP, URIC ####[facility] [address] [place], [place] [address]MxDr. Sarah Napoles PROF 14(COMP METB)on 023 Albumin [Mass/Vol] 4.3 g/dL Normal 3.4-5.0 [facility] Comment on above: Performed By: #### L IPID, CMP, URIC #### [facility] [address] [place] [address] Dr. Sarah Napoles Albumin/Globulin [Mass ratio] 1.3 {ratio} Normal [facility] Comment on above: Performed By: #### L IPID, CMP, URIC #### [facility] [address] [place] [address] Dr. Sarah Napoles ALP [Catalytic activity/Vol] 71 U/L Normal 46-116 [facility] Comment on above: Performed By: #### L IPID, CMP, URIC #### [facility] [address] [address] [address] Sarah Napoles ALT [Catalytic activity/Vol] 25 U/L Normal 14-59 [facility] Comment on above: Performed By: #### L IPID, CMP, URIC #### [facility] [address] [place] [address] Dr. Sarah Napoles Anion gap [Moles/Vol] 11.8 mmol/L Normal [facility] Comment on above: Performed By: #### L IPID, CMP, URIC #### [facility] [address] [address] [address] Sarah Napoles AST [Catalytic activity/Vol] 22 U/L Normal 15-37 [facility] Comment on above: Performed By: #### L IPID, CMP, URIC #### [facility] [address] [address] [address] Sarah Napoles Bilirubin [Mass/Vol] 0.3 mg/dL Normal 0.2-1.0 [facility] Comment on above: Performed By: #### L IPID, CMP, URIC #### [facility] [address] [place] [address] Dr. Sarah Napoles Calcium [Mass/Vol] 9.8 mg/dL Normal 8.5-10.1 [facility] Comment on above: Performed By: #### L IPID, CMP, URIC #### [facility] [address] [address] [address] Sarah Napoles Chloride [Moles/Vol] 101 mmol/L Normal 98-[address] [facility] Comment on above: Performed By: #### L IPID, CMP, URIC #### [facility] [address] [address] [address] Sarah Napoles CO2 [Moles/Vol] 29.5 mmol/L Normal 21.0-32.0 [facility] Comment on above: Performed By: #### L IPID, CMP, URIC #### [facility] [address] [place] [address] Dr. Sarah Napoles Creatinine [Mass/Vol] 0.63 mg/dL Normal 0.55-1.02 [facility] Comment on above: Performed By: #### L IPID, CMP, URIC #### [facility] [address] [address] [address] Sarah Napoles EGFR-AF TAJIK >60 Normal >=60 [facility] Comment on above: Performed By: #### L IPID, CMP, URIC #### [facility] [address] [place] [address] Dr. Sarah Napoles EGFR-NON AF TAJIK >60 Normal >=[address] [facility] Comment on above: Performed By: #### L IPID, CMP, URIC #### [facility] [address] [address] [address] Sarah Napoles Globulin (S) [Mass/Vol] 3.4 g/dL Normal [facility] Comment on above: Performed By: #### L IPID, CMP, URIC #### [facility] [address] [address] [address] Sarah Napoles Glucose [Mass/Vol] 92 mg/dL Normal 74-106 [facility] Comment on above: Performed By: #### L IPID, CMP, URIC #### [facility] [address] [address] [address] Sarah Napoles Potassium [Moles/Vol] 4.3 mmol/L Normal 3.5-5.1 [facility] Comment on above: Performed By: #### L IPID, CMP, URIC #### [facility] [address] [address] [address] Sarah Napoles Protein [Mass/Vol] 7.7 g/dL Normal 6.4-8.2 [facility] Comment on above: Performed By: #### L IPID, CMP, URIC #### [facility] [address] [address] [address] Sarah Napoles Sodium [Moles/Vol] 138 mmol/L Normal 136-145 [facility] Comment on above: Performed By: #### L IPID, CMP, URIC #### [facility] [address] [address] [address] Sarah Napoles Urea nitrogen [Mass/Vol] 25.0 mg/dL Critically high 7.0-18.0 [facility] Comment on above: Performed By: #### L IPID, CMP, URIC #### [facility] [address] [address] [address] Sarah Napoles Urea nitrogen/Creatinine [Mass ratio] 39.7 mg/mg Normal [facility] Comment on above: Performed By: #### L IPID, CMP, URIC #### [facility] [address] [address] [address] Sarah Napoles URIC ACID SERUMon 12-15-2022 Urate [Mass/Vol] 3.7 mg/dL Normal 2.6-6.0 [facility] Comment on above: Performed By: #### L IPID, CMP, URIC ####[facility] [address] [address] Sarah Napoles CT LUNG CANCER SCREENINGon CT [...] SLIME MILLAN Date: 2022-07-21 22:[address] [facility] CBC AUTO DIFFon 06-16-2022 BASO # 0.1 103/ul Normal 0.0-0.1 [facility] Comment on above: Performed By: #### C BC ####[facility] [address] [place], [place] [address]Dr. Sarah Napoles Basophils/100 WBC (Bld) 0.9 % Normal 0.2-2.[address] [facility] Comment on above: Performed By: #### C BC ####[facility] [address] [place], [place] [address]DrJudy Napoles EO # 0.2 103/ul Normal 0.0-0.[address] [facility] Comment on above: Performed By: #### C BC ####[facility] [address] [place], [place] [address]DrJudy Napoles Eosinophils/100 WBC (Bld) 2.5 % Normal 0.9-7.[address] [facility] Comment on above: Performed By: #### C BC ####[facility] [address] [place], [place] [address]DrJudy Napoles Erythrocyte distribution width (RBC) [Ratio] 13.4 % Normal 11.0-15.0 [facility] Comment on above: Performed By: #### C BC ####[facility] [address] [place], [place] [address]DrJudy Napoles Hematocrit (Bld) [Volume fraction] 33.3 % Critically low 36.0-48.0 [facility] Comment on above: Performed By: #### C BC ####[facility] [address] [address]Dr. Sarah Napoles Hemoglobin (Bld) [Mass/Vol] 10.8 g/dL Critically low 12.0-16.[address] [facility] Comment on above: Performed By: #### C BC ####[facility] [address] [place], [place] [address]Dr. Sarah Napoles IG # 0.03 10e3/ul Normal 0.00-0.03 [facility] Comment on above: Performed By: #### C BC ####[facility] [address] [place], [place] [address]Dr. Sarah Napoles IG % 0.4 % Normal 0.0-0.5 [facility] Comment on above: Performed By: #### C BC ####[facility] [address] [place], [place] [address]Dr. Sarah Napoles LYMPH # 1.7 103/ul Normal 1.2-3.[address] [facility] Comment on above: Performed By: #### C BC ####[facility] [address] [place], [place] [address]Dr. Sarah Napoles Lymphocytes/100 WBC (Bld) 20.4 % Critically low 20.5-60.0 [facility] Comment on above: Performed By: #### C BC ####[facility] [address] [place], [place] [address]Dr. Sarah Napoles MANUAL DIFF REQ NO Normal [facility] Comment on above: Performed By: #### C BC ####[facility] [address] [place], [place] [address]Dr. Sarah Napoles MCH (RBC) [Entitic mass] 32.0 pg Normal 26.7-34.[address] [facility] Comment on above: Performed By: #### C BC ####[facility] [address] [place], [place] [address]Dr. Sarah Napoles MCHC (RBC) [Mass/Vol] 32.4 g/dL Normal 29.9-35.[address] [facility] Comment on above: Performed By: #### C BC ####[facility] [address] [address]DrJudy Napoles MCV (RBC) [Entitic vol] 98.8 fL Normal 81.0-99.[address] [facility] Comment on above: Performed By: #### C BC ####[facility] [address] [place], [place] [address]DrJudy Napoles MONO # 0.9 103/ul Critically high 0.3-0.8 [facility] Comment on above: Performed By: #### C BC ####[facility] [address] [place], [place] [address]DrJudy Napoles Monocytes/100 WBC (Bld) 11.0 % Normal 1.7-12.[address] [facility] Comment on above: Performed By: #### C BC ####[facility] [address] [place], [place] [address]DrJudy Napoles NEUT # 5.3 103/ul Normal 1.4-6.[address] [facility] Comment on above: Performed By: #### C BC ####[facility] [address] [place], [place] [address]DrJudy Napoles Neutrophils/100 WBC (Bld) 64.8 % Normal 43.0-75.[address] [facility] Comment on above: Performed By: #### C BC ####[facility] [address] [place], [place] [address]DrJudy Napoles Platelet mean volume (Bld) [Entitic vol] 10.8 fL Normal 9.5-13.[address] [facility] Comment on above: Performed By: #### C BC ####[facility] [address] [place], [place] [address]DrJudy Napoles PLT 262 103/ul Normal 150-[address] [facility] Comment on above: Performed By: #### C BC ####[facility] [address] [place], [place] [address]DrJudy Napoles RBC 3.37 106/ul Critically low 4.20-5.40 [facility] Comment on above: Performed By: #### C BC ####[facility] [address] [id number]. Sarah Napoles WBC 8.1 103/ul Normal 4.0-11.0 [facility] Comment on above: Performed By: #### C BC ####[facility] [address] [address]DrJudy Napoles GLYCOHEMOGLOBIN A1Con 2021 ADA RECOMMENDATION SEE BELOW Normal [facility] Comment on above: Result Comment: ADA RECOMMENDED LIMIT 4.0 - 6.0 ADA THERAPEUTIC TARGET < 7.0 ACTION SUGGESTED > 7.0 Performed By: #### A 1C ####[facility] [address] [address]DrJudy Napoles Glucose [Mass/Vol] 108 mg/dL Normal [facility] Comment on above: Performed By: #### A 1C ####[facility] [address] [id number] Napoles HbA1c (Bld) [Mass fraction] 5.4 % Normal 4.5-6.2 [facility] Comment on above: Performed By: #### A 1C ####[facility] [address] [address]DrJudy Napoles LIPID PROFILEon 06-16-2022 CHOL-HDL RATIO NORM SEE BELOW Normal [facility] Comment on above: Result Comment: 3.3 - 4.4 LOW RISK 4.4 - 7.1 AVERAGE RISK 7.1 - 11.0 MODERATE RISK >11.0 HIGH RISK Performed By: #### C MP, LIPID #### [facility] [address] [address] [address] Sarah Napoles Cholesterol [Mass/Vol] 147 mg/dL Normal <=200 [facility] Comment on above: Performed By: #### C MP, LIPID #### [facility] [address] [address] [address] Sarah Napoles Cholesterol in HDL [Mass/Vol] 58 mg/dL Normal 40-60 [facility] Comment on above: Performed By: #### C MP, LIPID #### [facility] [address] [address] [address] Sarah Napoles Cholesterol in LDL [Mass/Vol] 68.0 mg/dL Normal [facility] Comment on above: Performed By: #### C MP, LIPID #### [facility] [address] [address] [address] Sarah Napoles Cholesterol.total/Ch olesterol in HDL [Mass ratio] 2.5 {ratio} Normal [facility] Comment on above: Performed By: #### C MP, LIPID #### [facility] [address] [place] [address] Dr. Sarah Napoles HDL NORMAL > or = 60 mg/dl - LO W CARDIOVASCULAR RISK <40 mg/dl - HIGH CARDIOVASCULAR RISK Normal [facility] Comment on above: Performed By: #### C MP, LIPID #### [facility] [address] [place] [address] Dr. Sarah Napoles LDL CALC NORMAL SEE BELOW Normal [facility] Comment on above: Result Comment: <100 mg/dl OPTIMAL 100 - 129 mg/dl NEAR OR ABOVE OPTIMAL 130 - 159 mg/dl BORDERLINE HIGH 160 - 189 mg/dl HIGH >190 mg/dl VERY HIGH Performed By: #### C MP, LIPID #### [facility] [address] [place] [address] Dr. Sarah Napoles Triglyceride [Mass/Vol] 105 mg/dL Normal <=150 [facility] Comment on above: Performed By: #### C MP, LIPID #### [facility] [address] [place] [address] Dr. Sarah Napoles VLDL CALC 21.0 mg/dL Normal [facility] Comment on above: Performed By: #### C MP, LIPID #### [facility] [address] [place] [address] Dr. Sarah Napoles PROF 14(COMP METB)on 022 Albumin [Mass/Vol] 4.0 g/dL Normal 3.4-5.0 [facility] Comment on above: Performed By: #### C MP, LIPID #### [facility] [address] [address] [address] Sarah Napoles Albumin/Globulin [Mass ratio] 1.2 {ratio} Normal [facility] Comment on above: Performed By: #### C MP, LIPID #### [facility] [address] [address] [address] Sarah Napoles ALP [Catalytic activity/Vol] 53 U/L Normal 46-116 [facility] Comment on above: Performed By: #### C MP, LIPID #### [facility] [address] [address] [address] Sarah Napoles ALT [Catalytic activity/Vol] 32 U/L Normal 14-59 [facility] Comment on above: Performed By: #### C MP, LIPID #### [facility] [address] [place] [address] Dr. Sarah Napoles Anion gap [Moles/Vol] 8.0 mmol/L Normal [facility] Comment on above: Performed By: #### C MP, LIPID #### [facility] [address] [place] [address] Dr. Sarah Napoles AST [Catalytic activity/Vol] 23 U/L Normal 15-37 [facility] Comment on above: Performed By: #### C MP, LIPID #### [facility] [address] [place] [address] Dr. Sarah Napoles Bilirubin [Mass/Vol] 0.4 mg/dL Normal 0.2-1.0 [facility] Comment on above: Performed By: #### C MP, LIPID #### [facility] [address] [address] [address] Sarah Napoles Calcium [Mass/Vol] 9.4 mg/dL Normal 8.5-10.1 [facility] Comment on above: Performed By: #### C MP, LIPID #### [facility] [address] [place] [address] Dr. Sarah Napoles Chloride [Moles/Vol] 100 mmol/L Normal 98-107 [facility] Comment on above: Performed By: #### C MP, LIPID #### [facility] [address] [address] [address] Sarah Napoles CO2 [Moles/Vol] 30.8 mmol/L Normal 21.0-32.0 [facility] Comment on above: Performed By: #### C MP, LIPID #### [facility] [address] [address] [address] Sarah Napoles Creatinine [Mass/Vol] 0.68 mg/dL Normal 0.55-1.[address] [facility] Comment on above: Performed By: #### C MP, LIPID #### [facility] [address] [address] [address] Sarah Napoles EGFR-AF TAJIK >60 Normal >=60 [facility] Comment on above: Performed By: #### C MP, LIPID #### [facility] [address] [place] [address] Dr. Sarah Napoles EGFR-NON AF TAJIK >60 Normal >=[address] [facility] Comment on above: Performed By: #### C MP, LIPID #### [facility] [address] [address] [address] Sarah Napoles Globulin (S) [Mass/Vol] 3.3 g/dL Normal [facility] Comment on above: Performed By: #### C MP, LIPID #### [facility] [address] [place] [address] Dr. Sarah Napoles Glucose [Mass/Vol] 90 mg/dL Normal 74-106 [facility] Comment on above: Performed By: #### C MP, LIPID #### [facility] [address] [address] [address] Sarah Napoles Potassium [Moles/Vol] 3.8 mmol/L Normal 3.5-5.[address] [facility] Comment on above: Performed By: #### C MP, LIPID #### [facility] [address] [address] [address] Sarah Napoles Protein [Mass/Vol] 7.3 g/dL Normal 6.4-8.2 [facility] Comment on above: Performed By: #### C MP, LIPID #### [facility] [address] [address] [address] Sarah Napoles Sodium [Moles/Vol] 135 mmol/L Critically low 136-[address] [facility] Comment on above: Performed By: #### C MP, LIPID #### [facility] [address] [address] [address] Sarah Napoles Urea nitrogen [Mass/Vol] 13.0 mg/dL Normal 7.0-18.0 [facility] Comment on above: Performed By: #### C MP, LIPID #### [facility] [address] [address] [address] Sarah Napoles Urea nitrogen/Creatinine [Mass ratio] 19.1 mg/mg Normal [facility] Comment on above: Performed By: #### C MP, LIPID #### [facility] [address] [address] [address] Sarah Napoles POC GLUCOSE LABon 01-03-2021 Glucose [Mass/Vol] 119 mg/dL High 70-100 [facility] Comment on above: Performed By: #### 8 [id number] #### [facility] [address] [place] [address], [place] Glucose [Mass/Vol] 145 mg/dL High 70-100 [facility] Comment on above: Performed By: #### 8 [id number] #### [facility] [address] [place] [address], [place] Glucose [Mass/Vol] 93 mg/dL Normal 70-100 [facility] Comment on above: Performed By: #### 8 [id number] #### [facility] [address] [place] [address], [place] Glucose [Mass/Vol] 99 mg/dL Normal 70-100 [facility] Comment on above: Performed By: #### 8 [id number] #### [facility] [address] [place] [address], [place] POC GLUCOSE LABon 01-02-2021 Glucose [Mass/Vol] 101 mg/dL High 70-100 [facility] Comment on above: Performed By: #### 8 [id number] #### [facility] [address] [place] [address], [place] Glucose [Mass/Vol] 127 mg/dL High 70-100 [facility] Comment on above: Performed By: #### 8 [id number] #### [facility] [address] [place] [address], [place] Glucose [Mass/Vol] 110 mg/dL High 70-100 [facility] Comment on above: Performed By: #### 8 [id number] #### [facility] [address] [place] [address], [facility] BASIC METABOLIC PANELon 03-3 Calcium [Mass/Vol] 8.4 mg/dL Low 8.6-10.3 [facility] Comment on above: Order Comment: No: D o not add to previous draw Performed By: #### 8 [id number] #### [facility] [address] [place] [address], [place] Chloride [Moles/Vol] 106 mmol/L Normal 98-107 The [facility] Comment on above: Order Comment: No: D o not add to previous draw Performed By: #### 8 [id number] #### [facility] [address] [place] [address], [place] CO2 [Moles/Vol] 29 mmol/L Normal 21-31 The [facility] Comment on above: Order Comment: No: D o not add to previous draw Performed By: #### 8 [id number] #### [facility] [address] [place] [address], [place] Creatinine [Mass/Vol] 0.50 mg/dL Low 0.60-1.20 [facility] Comment on above: Order Comment: No: D o not add to previous draw Performed By: #### 8 [id number] #### [facility] [address] [place] [address], [place] GFR/1.73 sq M.predicted among blacks MDRD (S/P/Bld) [Vol rate/Area] mL/min/{1.73_m2} Normal >60 [facility] Comment on above: Order Comment: No: D o not add to previous draw Performed By: #### 8 [id number] #### [facility] [address] [place] [address], [place] GFR/1.73 sq M.predicted among non-blacks MDRD (S/P/Bld) [Vol rate/Area] mL/min/{1.73_m2} Normal >60 [facility] Comment on above: Order Comment: No: D o not add to previous draw Performed By: #### 8 [id number] #### [facility] [address] [place] [address], [place] Glucose [Mass/Vol] 88 mg/dL Normal 70-100 [facility] Comment on above: Order Comment: No: D o not add to previous draw Performed By: #### 8 [id number] #### [facility] [address] [place] [address], [place] Potassium [Moles/Vol] 3.3 mmol/L Low 3.5-5.1 [facility] Comment on above: Order Comment: No: D o not add to previous draw Performed By: #### 8 [id number] #### [facility] [address] [place] [address], [place] Sodium [Moles/Vol] 141 mmol/L Normal 136-145 [facility] Comment on above: Order Comment: No: D o not add to previous draw Performed By: #### 8 5499 #### [facility] [address] [place] [address], [place] Urea nitrogen [Mass/Vol] 10 mg/dL Normal 7-25 [facility] Comment on above: Order Comment: No: D o not add to previous draw Performed By: #### 8 [id number] #### [facility] [address] [facility] [place] [address], [facility] CBC W/DIFFon 01-01-2021 ABS IMM GRANS 0.1 10*3/uL Normal 0.0-0.2 The [facility] Comment on above: Order Comment: No: D o not add to previous draw Performed By: #### 5 0103 #### [facility] [address] [place] [address], [facility] ABS NEUTROPHILS 10.1 10*3/uL High 1.6-7.6 The [facility] Comment on above: Order Comment: No: D o not add to previous draw Performed By: #### 5 0103 #### [facility] [address] [facility] [place] [address], [facility] Basophils (Bld) [#/Vol] 0.0 10*3/uL Normal 0.0-0.2 [facility] Comment on above: Order Comment: No: D o not add to previous draw Performed By: #### 5 0103 #### [facility] [address] [place] [address], [facility] Basophils/100 WBC (Bld) 0.2 % Normal 0.0-1.0 [facility] Comment on above: Order Comment: No: D o not add to previous draw Performed By: #### 5 0103 #### [facility] [address] [facility] [place] [address], [facility] Eosinophils (Bld) [#/Vol] 0.0 10*3/uL Normal 0.0-0.5 [facility] Comment on above: Order Comment: No: D o not add to previous draw Performed By: #### 5 0103 #### [facility] [address] [place] [address], [facility] Eosinophils/100 WBC (Bld) 0.1 % Normal 0.0-6.0 [facility] Comment on above: Order Comment: No: D o not add to previous draw Performed By: #### 5 0103 #### [facility] [address] [place] [address], [facility] Erythrocyte distribution width (RBC) [Ratio] 13.1 % Normal 11.5-15.0 [facility] Comment on above: Order Comment: No: D o not add to previous draw Performed By: #### 5 0103 #### [facility] [address] [place] [address], [facility] Hematocrit (Bld) [Volume fraction] 27.7 % Low 36.0-45.0 [facility] Comment on above: Order Comment: No: D o not add to previous draw Performed By: #### 5 0103 #### [facility] [address] [place] [address], [facility] Hemoglobin (Bld) [Mass/Vol] 9.2 g/dL Low 12.0-15.0 [facility] Comment on above: Order Comment: No: D o not add to previous draw Result Comment: RESU LTS CHECKED Performed By: #### 5 0103 #### [facility] [address] [facility] [place] [address], [facility] IMMATURE GRANS 0.4 % Normal 0.0-1.0 The [facility] Comment on above: Order Comment: No: D o not add to previous draw Performed By: #### 5 0103 #### [facility] [address] [facility] [place] [address], [facility] Lymphocytes (Bld) [#/Vol] 1.8 10*3/uL Normal 1.2-4.0 [facility] Comment on above: Order Comment: No: D o not add to previous draw Performed By: #### 5 0103 #### [facility] [address] [place] [address], [facility] Lymphocytes/100 WBC (Bld) 13.6 % Low 20.0-45.0 [facility] Comment on above: Order Comment: No: D o not add to previous draw Performed By: #### 5 0103 #### [facility] [address] [facility] [place] [address], [facility] MCH (RBC) [Entitic mass] 32.4 pg Normal 27.0-33.0 [facility] Comment on above: Order Comment: No: D o not add to previous draw Performed By: #### 5 0103 #### [facility] [address] [facility] [place] [id number], [facility] MCHC (RBC) [Mass/Vol] 33.2 g/dL Normal 32.0-35.0 [facility] Comment on above: Order Comment: No: D o not add to previous draw Performed By: #### 5 0103 #### [facility] [address] [place] [id number], [facility] MCV (RBC) [Entitic vol] 97.5 fL Normal 82.0-98.0 The [facility] Comment on above: Order Comment: No: D o not add to previous draw Performed By: #### 5 0103 #### [facility] [address] [facility] [place] [address], [facility] Monocytes (Bld) [#/Vol] 1.4 10*3/uL High 0.1-1.0 [facility] Comment on above: Order Comment: No: D o not add to previous draw Performed By: #### 5 0103 #### [facility] [address] [facility] [place] [id number], [facility] MONOS 10.1 % Normal 5.0-12.0 [facility] Comment on above: Order Comment: No: D o not add to previous draw Performed By: #### 5 0103 #### [facility] [address] [place] [address], [facility] Neutrophils/100 WBC (Bld) 75.6 % High 40.0-72.0 [facility] Comment on above: Order Comment: No: D o not add to previous draw Performed By: #### 5 0103 #### [facility] [address] [place] [address], [facility] Nucleated RBC/100 WBC (Bld) [Ratio] 0 % Normal 0-0 [facility] Comment on above: Order Comment: No: D o not add to previous draw Performed By: #### 5 0103 #### [facility] [address] [place] [address], [place] PLAT CNT 237 10*3/uL Normal 150-400 [facility] Comment on above: Order Comment: No: D o not add to previous draw Performed By: #### 5 0103 #### [facility] [address] [place] [address], [facility] RBC (Bld) [#/Vol] 2.84 10*6/uL Low 3.80-5.00 The [facility] Comment on above: Order Comment: No: D o not add to previous draw Performed By: #### 5 0103 #### [facility] [address] [facility] [place] [address], [facility] WBC (Bld) [#/Vol] 13.43 10*3/uL High 4.00-10.60 [facility] Comment on above: Order Comment: No: D o not add to previous draw Performed By: #### 5 0103 #### [facility] [address] [place] [address], [facility] POC GLUCOSE LABon 01-01-2021 Glucose [Mass/Vol] 115 mg/dL High 70-100 The [facility] Comment on above: Performed By: #### 8 [id number] #### [facility] [address] [facility] [place] [address], [facility] Glucose [Mass/Vol] 110 mg/dL High 70-100 The [facility] Comment on above: Performed By: #### 8 [id number] #### [facility] [address] [facility] [place] [address], [facility] Glucose [Mass/Vol] 111 mg/dL High 70-100 [facility] Comment [facility] above: Performed By: #### 8 [id number] #### [facility] [address] [facility] [place] [address], [facility] Glucose [Mass/Vol] 102 mg/dL High 70-100 [facility] Comment on above: Performed By: #### 8 [id number] #### [facility] [address] [facility] [place] [address], [facility] HIP RIGHT 1 OR 2 VWS WITH PE LVISon 12-31-2020 HIP RIGHT 1 OR 2 VWS WITH PELVIS [facility] Department of Radiology [address] [place] [phone] Patient Name: BLANCA MOE : 1960 Sex: [...] reports Electronically signed: Panda Smith. Transcribed by: [email or web address], User Resident: YVROSE RODRIGUES Electronically Signed by: PANDA SMITH @ 12/31/2020 04:29 PM I personally read this/these film(s) with this resident Normal [facility] Comment on above: Order Comment: RIGHT ANTERIOR TOTAL HIP REPLACEMENT Operative Reporton Operative Report MR#: [id number] I [facility] Pt. Name: Blanca Moe Room #: [id number] Discharge Date: Birthdate: 1960 OPERATIVE REPORT DATE [...] right hip pain despite nonoperative measures. Has [id number] osteoarthritis of the right hip with subchondral [...] Roberts M.D. Date Trans: 12/31/2020 09:28 P/mmo [id number] Normal [facility] POC GLUCOSE LABon 12-31-2020 Glucose [Mass/Vol] 167 mg/dL High 70-100 [facility] Comment on above: Performed By: #### 8 [id number] #### [facility] [address] [facility] [place] [place] [address], [place] Glucose [Mass/Vol] 162 mg/dL High 70-100 [facility] Comment on above: Performed By: #### 8 [id number] #### [facility] [address] [facility] [place] [address], [place] Glucose [Mass/Vol] 168 mg/dL High 70-100 The [facility] Comment on above: Performed By: #### 8 [id number] #### [facility] [address] [facility] [place] [place] [address], [place] Glucose [Mass/Vol] 104 mg/dL High 70-100 The [facility] Comment on above: Performed By: #### 8 [id number] #### [facility] [address] [facility] [place] [place] [address], [place] PORTABLE HIP RIGHT 1 OR 2 VW S WITH PELVISon 12-31-2020 PORTABLE HIP RIGHT 1 OR 2 VWS WITH PELVIS [facility] Department of Radiology [address] [place] [phone] Patient Name: BLANCA MOE : 1960 Sex: [...] fracture Electronically signed: Panda Smith. Transcribed by: [email or web address], User Resident: Electronically Signed by: PANDA SMITH @ 12/31/2020 01:05 PM Normal [facility] Comment on above: Order Comment: Hardw are Evaluation, PACU *MRSA/MSSA DNA NASALon 12-10 *MRSA/MSSA DNA NASAL Clinical Report: (D ) Specimen: NASAL SWAB Collected: 12/10/2020 13:55 Status: Final Last Updated: 12/11/2020 15:48 MSSA DNA (Final) Negative MRSA DNA (Final) Negative Normal [facility] Comment on above: Performed By: #### 8 [id number] #### [facility] [address] [place] [address], [facility] CBC W/DIFFon 12-10-2020 ABS IMM GRANS 0.0 10*3/uL Normal 0.0-0.2 The [facility] Comment on above: Performed By: #### 8 [id number] #### [facility] [address] [place] [address], [facility] ABS NEUTROPHILS 7.7 10*3/uL High 1.6-7.6 The [facility] Comment on above: Performed By: #### 8 [id number] #### [facility] [address] [place] [address], [facility] Basophils (Bld) [#/Vol] 0.1 10*3/uL Normal 0.0-0.2 [facility] Comment on above: Performed By: #### 8 [id number] #### [facility] [address] [place] [address], [facility] Basophils/100 WBC (Bld) 0.6 % Normal 0.0-1.0 [facility] Comment on above: Performed By: #### 8 [id number] #### [facility] [address] [place] [address], [facility] Eosinophils (Bld) [#/Vol] 0.1 10*3/uL Normal 0.0-0.5 [facility] Comment on above: Performed By: #### 8 [id number] #### [facility] [address] [place] [address], [facility] Eosinophils/100 WBC (Bld) 1.0 % Normal 0.0-6.0 [facility] Comment on above: Performed By: #### 8 [id number] #### [facility] [address] Erythrocyte distribution width (RBC) [Ratio] 13.0 % Normal 11.5-15.0 [facility] Comment on above: Performed By: #### 8 [id number] #### [facility] [address] [place] [address], [facility] Hematocrit (Bld) [Volume fraction] 36.2 % Normal 36.0-45.0 [facility] Comment on above: Performed By: #### 8 [id number] #### [facility] [address] [facility] [place] [address], [facility] Hemoglobin (Bld) [Mass/Vol] 11.9 g/dL Low 12.0-15.0 [facility] Comment on above: Performed By: #### 8 [id number] #### [facility] [address] [facility] [place] [address], [facility] IMMATURE GRANS 0.3 % Normal 0.0-1.0 [facility] Comment on above: Performed By: #### 8 [id number] #### [facility] [address] [facility] [place] [address], [facility] Lymphocytes (Bld) [#/Vol] 1.5 10*3/uL Normal 1.2-4.0 [facility] Comment on above: Performed By: #### 8 [id number] #### [facility] [address] [facility] [place] [address], [facility] Lymphocytes/100 WBC (Bld) 15.1 % Low 20.0-45.0 [facility] Comment on above: Performed By: #### 8 [id number] #### [facility] [address] [facility] [place] [address], [facility] MCH (RBC) [Entitic mass] 31.9 pg Normal 27.0-33.0 [facility] Comment on above: Performed By: #### 8 [id number] #### [facility] [address] [place] [address], [facility] MCHC (RBC) [Mass/Vol] 32.9 g/dL Normal 32.0-35.0 [facility] Comment on above: Performed By: #### 8 [id number] #### [facility] [address] [facility] [place] [address], [facility] MCV (RBC) [Entitic vol] 97.1 fL Normal 82.0-98.0 [facility] Comment on above: Performed By: #### 8 [id number] #### [facility] [address] [place] [address], [facility] Monocytes (Bld) [#/Vol] 0.7 10*3/uL Normal 0.1-1.0 [facility] Comment on above: Performed By: #### 8 [id number] #### [facility] [address] MONOS 7.3 % Normal 5.0-12.0 [facility] Comment on above: Performed By: #### 8 [id number] #### [facility] [address] Neutrophils/100 WBC (Bld) 75.7 % High 40.0-72.0 [facility] Comment on above: Performed By: #### 8 [id number] #### [facility] [address] Nucleated RBC/100 WBC (Bld) [Ratio] 0 % Normal 0-0 [facility] Comment on above: Performed By: #### 8 [id number] #### [facility] [address] [facility] [place] [address], [facility] PLAT CNT 290 10*3/uL Normal 150-400 [facility] Comment on above: Performed By: #### 8 [id number] #### [facility] [address] [place] [address], [facility] RBC (Bld) [#/Vol] 3.73 10*6/uL Low 3.80-5.00 [facility] Comment on above: Performed By: #### 8 [id number] #### [place] [address], [facility] WBC (Bld) [#/Vol] 10.11 10*3/uL Normal 4.00-10.60 [facility] Comment on above: Performed By: #### 8 [id number] #### [facility] [address] [facility] [place] [address], [facility] HEMOGLOBIN A1Con 12-10-2020 Glucose [Moles/Vol] 108 mmol/L Normal [facility] Comment on above: Performed By: #### 3 1791 #### [place] [address], [facility] HbA1c (Bld) [Mass fraction] 5.4 % Normal 4.0-6.0 [facility] Comment on above: Performed By: #### 3 1791 #### [id number] [place] [address] HIP RIGHT 1 OR 2 VWS WITH PE LVISon 11-22-2020 HIP RIGHT 1 OR 2 VWS WITH PELVIS [facility] Department of Radiology [address] [place] [phone] Patient Name: BLANCA MOE : 1960 [...] exam. Electronically signed: Rodney Sutherland. Transcribed by: [email or web address], User Resident: Electronically Signed by: RODNEY SUTHERLAND @ 11/22/2020 03:43 PM Normal [facility] Comment on above: Order Comment: Evalu ate Vital Signs Date Time Vital Sign Value Performing Clinician Alex zamarripa 05-03-2025 13:49-0400 Body height 162.6 cm Jose Guadalupe Mejia MD Work Phone: [facility] 05-03-2025 13:49-0400 Body mass index (BMI) [Ratio] 28.67 kg/m2 Jose Guadalupe Mejia MD Work Phone: [facility] 05-03-2025 13:49-0400 Body temperature 97.11 [degF] Jose Guadalupe Mejia MD Work Phone: [facility] 05-03-2025 13:49-0400 Body weight 75.75 kg Jose Guadalupe Mejia MD Work Phone: [facility] 05-03-2025 13:49-0400 Diastolic blood pressure 84 mm[Hg] Jose Guadalupe Mejia MD Work Phone: [facility] 05-03-2025 13:49-0400 Heart rate 74 /min Jose Guadalupe Mejia MD Work Phone: [facility] 05-03-2025 13:49-0400 Respiratory rate 22 /min Jose Guadalupe Mejia MD Work Phone: [facility] 05-03-2025 13:49-0400 SaO2% (BldA) [Mass fraction] 94 % Jose Guadalupe Mejia MD Work Phone: [facility] 05-03-2025 13:49-0400 Systolic blood pressure 136 mm[Hg] Jose Guadalupe Mejia MD Work Phone: [facility] 09-13-2024 14:50-0500 Body height 162.6 cm Maisha Wyman CHEF DE CUISINE Work Phone: [facility] 09-13-2024 14:50-0500 Body mass index (BMI) [Ratio] 31.24 kg/m2 Maisha Wyman [employer]INE Work Phone: [facility] 09-13-2024 14:50-0500 Body temperature 97.2 [degF] Maisha Wyman CHEF DE CUISINE Work Phone: [facility] 09-13-2024 14:50-0500 Body weight 82.56 kg Maisha Wyman CHEF DE CUISINE Work Phone: [facility] 09-13-2024 14:50-0500 Diastolic blood pressure 82 mm[Hg] Maisha Wyman CHEF DE CUISINE Work Phone: [facility] 09-13-2024 14:50-0500 Heart rate 62 /min Maisha Wyman CHEF DE CUISINE Work Phone: [facility] 09-13-2024 14:50-0500 Respiratory rate 16 /min Maisha Wyman CHEF [employer]ISINE Work Phone: [facility] 09-13-2024 14:50-0500 SaO2% (BldA) [Mass fraction] 99 % Maisha Wyman CHEF DE CUISINE Work Phone: [facility] 09-13-2024 14:50-0500 Systolic blood pressure 148 mm[Hg] Maisha Wyman CHEF DE CUISINE Work Phone: [facility] 08-16-2024 13:29-0500 Body height 160 cm Duncan Bradshaw PA Work Phone: [facility] 08-16-2024 13:29-0500 Body mass index (BMI) [Ratio] 31.89 kg/m2 Duncan Bradshaw PA Work Phone: [facility] 08-16-2024 13:29-0500 Body weight 81.65 kg Duncan Bradshaw PA Work Phone: [facility] 06-14-2024 14:47-0400 Body height 162.6 cm Maisha Wyman CHEF DE CUISINE Work Phone: [facility] 06-14-2024 14:47-0400 Body mass index (BMI) [Ratio] 30.21 kg/m2 Maisha Wyman [employer]F [employer]INE Work Phone: [facility] 06-14-2024 14:47-0400 Body temperature 97.7 [degF] Maisha Wyman CHEF DE CUISINE Work Phone: [facility] 06-14-2024 14:47-0400 Body weight 79.83 kg Maisha Wyman CHEF DE CUISINE Work Phone: [facility] 06-14-2024 14:47-0400 Diastolic blood pressure 64 mm[Hg] Maisha Wyman CHEF DE CUISINE Work Phone: [facility] 06-14-2024 14:47-0400 Heart rate 65 /min Maisha Wyman CHEF DE CUISINE Work Phone: [facility] Comment on above: 195% O2 06-14-2024 14:47-0400 Systolic blood pressure 126 mm[Hg] Maisha Wyman CHEF DE CUISINE Work Phone: [facility] Healthcare Encounters Encounter Date Encounter Type Care Provider Facility Start: 05-03-2025 End: 05-03-2025 Bamboo flowsheet Jose Guadalupe Mejia MD Work Phone: [facility] Start: 05-03-2025 End: 05-03-2025 Bamboo flowsheet Jose Guadalupe Mejia MD Work Phone: [facility] Start: 05-03-2025 End: 05-03-2025 Office outpatient visit 25 minutes Jose Guadalupe Mejia MD Work Phone: [facility] Comment on above: Primary hypertension (Primary Dx); Chronic obstructive pulmonary disease, unspecified COPD type (HCC); MDD (major depressive disorder), recurrent episode, mild ; Primary osteoarthritis of left knee; Primary insomnia; Former smoker Start: 05-03-2025 End: 05-03-2025 ambulatory JOSE GUADALUPE MEJIA Not Available Start: 04-26-2025 End: 04-26-2025 Refill Jose Guadalupe Mejia MD Work Phone: [facility] Comment on above: Chronic left shoulde r pain; Chronic pain of left knee Start: 04-10-2025 End: 04-10-2025 Refill Jose Guadalupe Mejia MD Work Phone: [facility] Comment on above: Chronic left shoulde r pain; Chronic pain of left knee Start: 03-28-2025 End: 03-28-2025 Clinisync Result Encounter Generic External Data Provider [facility] Unsolicited Start: 03-28-2025 End: 03-28-2025 Clinisync Result Encounter Generic External Data Provider [facility] External [facility] Unsolicited Start: 03-28-2025 End: 03-28-2025 Refill Jose Guadalupe Mejia MD Work Phone: [facility] Comment on above: Chronic left shoulde r pain; Chronic pain of left knee Start: 03-06-2025 End: 03-06-2025 Refill Jose Guadalupe Mejia MD Work Phone: [facility] Comment on above: Suspected chronic ob structive pulmonary disease based on initial evaluation (CMS/[facility]); Mild intermittent asthma without complication (CMS/[facility]) Start: 03-06-2025 End: 03-06-2025 [facility] Start: 01-25-2025 End: 01-25-2025 Refill Jose Guadalupe Mejia MD Work Phone: [facility] Comment on above: Chronic left shoulde r pain; Chronic pain of left knee Start: 01-24-2025 End: 01-24-2025 Clinisync Result Encounter Jose Guadalupe Mejia MD Work Phone: [facility] Unsolicited Start: 01-24-2025 End: 01-24-2025 Clinisync Result Encounter Jose Guadalupe Mejia MD Work Phone: [facility] Unsolicited Start: 01-23-2025 End: 01-23-2025 Refill Jose Guadalupe Mejia MD Work Phone: [facility] Comment on above: MDD (major depressiv e disorder), recurrent episode, mild (HCC) ([facility]/HCC) Start: 12-26-2024 End: 12-26-2024 Refill Jose Guadalupe Mejia MD Work Phone: [facility] Comment on above: Chronic left shoulde r pain; Chronic pain of left knee Start: 12-20-2024 End: 12-20-2024 ambulatory JOSE GUADALUPE MEJIA Not Available Start: 11-13-2024 End: 11-14-2024 Refill Maisha Wyman CHEF DE CUISINE Work Phone: [facility] Comment on above: Chronic left shoulde r pain; Chronic pain of left knee Start: 11-08-2024 End: 11-08-2024 Refill Afsaneh Morrow MA [facility] Comment on above: Chronic left shoulde r pain; Chronic pain of left knee Start: 10-26-2024 End: 10-26-2024 Refill Afsaneh Morrow MA [facility] Comment on above: Chronic left shoulde r pain; Chronic pain of left knee Start: 10-10-2024 End: 10-10-2024 Refill Maisha Wyman CHEF DE CUISINE Work Phone: [facility] Comment on above: Chronic left shoulde r pain; Chronic pain of left knee; Suspected chronic obstructive pulmonary disease based on initial evaluation (CMS/HCC); Hyperuricemia; Primary hypertension (CMS/HCC) Start: 09-14-2024 End: 09-14-2024 Refill Afsaneh Morrow MA [facility] Comment on above: Primary hypertension (CMS/HCC); Hyperuricemia; Chronic left shoulder pain; Chronic pain of left knee; Mixed hyperlipidemia (CMS/HCC) Start: 09-13-2024 End: 09-13-2024 Office outpatient visit 15 minutes Maisha Wyman CHEF [employer] CUISINE Work Phone: [facility] Comment on above: Mixed hyperlipidemia (CMS/HCC) (Primary Dx); Suspected chronic obstructive pulmonary disease based on initial evaluation ([facility]); Mild intermittent asthma without complication (CMS/[facility]); Primary hypertension ([facility]); Osteoporosis without current pathological fracture, unspecified osteoporosis type ([facility]) Start: 09-13-2024 End: 09-13-2024 ambulatory MAISHA WYMAN Not Available Start: 09-13-2024 End: 09-13-2024 Bamboo flowsheet Maisha Wyman CHEF [employer] CUISINE Work Phone: [facility] Start: 09-13-2024 End: 09-13-2024 Bamboo flowsheet Maisha Wyman CHEF DE CUISINE Work Phone: [facility] Start: 08-24-2024 End: 08-24-2024 Refill Afsaneh Morrow MA [facility] Comment on above: Chronic left shoulde r pain; Chronic pain of left knee Start: 08-18-2024 End: 08-18-2024 Refill Afsaneh Morrow MA [facility] Comment on above: Primary hypertension (CMS/HCC) Start: 08-16-2024 End: 08-16-2024 Office outpatient visit 25 minutes Duncan Bradshaw PA Work Phone: [facility] Comment on above: Acute pain of left k nee (Primary Dx); Arthritis of left knee; History of total right hip replacement Start: 08-16-2024 End: 08-17-2024 Refill Afsaneh Morrow MA [facility] Comment on above: Mixed hyperlipidemia (CMS/HCC) Start: 08-08-2024 End: 08-08-2024 Orders Only Maisha Wyman CHEF DE CUISINE Work Phone: [facility] Comment on above: Osteoarthritis of genevieve th knees, unspecified osteoarthritis type (Primary Dx) Start: 07-26-2024 End: 07-28-2024 Refill Afsaneh Morrow MA [facility] Comment on above: Chronic left shoulde r pain; Chronic pain of left knee Start: 07-14-2024 End: 07-18-2024 Refill Maisha Wyman CHEF DE CUISINE Work Phone: [facility] Comment on above: Chronic left shoulde r pain; Chronic pain of left knee Start: 07-13-2024 End: 07-13-2024 Orders Only Maisha Wyman CHEF DE CUISINE Work Phone: [facility] Comment on above: Suspected chronic ob structive pulmonary disease based on initial evaluation ([facility]) (Primary Dx); Mild intermittent asthma without complication (CMS/HCC) Start: 07-12-2024 End: 07-12-2024 Clinisync Result Encounter Maisha Wyman CHEF DE CUISINE Work Phone: [facility] External Department Unsolicited Start: 07-12-2024 End: 07-12-2024 Clinisync Result Encounter Maisha Wyman CHEF DE CUISINE Work Phone: [facility] External Department Unsolicited Start: 07-07-2024 End: 07-07-2024 Orders Only Maisha Wyman CHEF DE CUISINE Work Phone: [facility] Comment on above: Suspected chronic ob structive pulmonary disease based on initial evaluation (CMS/[facility]) (Primary Dx) Start: 06-27-2024 End: 06-27-2024 Orders Only Maisha Wyman CHEF DE CUISINE Work Phone: [facility] Comment on above: Primary hypertension (CMS/HCC); Chronic left shoulder pain; Chronic pain of left knee Start: 06-27-2024 End: 06-27-2024 ambulatory David May MD Facility:[facility] Start: 06-21-2024 End: 06-21-2024 Refill Tara Correa MA [facility] Comment on above: Osteoporosis without current pathological fracture, unspecified osteoporosis type (CMS/HCC) Start: 06-14-2024 End: 06-14-2024 Office outpatient visit 25 minutes Maisha Wyman CHEF DE CUISINE Work Phone: [facility] Comment on above: Primary hypertension (CMS/HCC) (Primary Dx); Symptoms of upper respiratory infection (URI); Chronic left shoulder pain; Mixed hyperlipidemia (CMS/HCC); Suspected chronic obstructive pulmonary disease based on initial evaluation ([facility]); Chronic pain of left knee Start: 06-14-2024 End: 06-14-2024 ambulatory MAISHA WYMAN Not Available Start: 06-14-2024 End: 06-14-2024 Bamboo flowsheet Maisha Wyman CHEF DE CUISINE Work Phone: [facility] Start: 06-14-2024 End: 06-14-2024 Bamboo flowsheet Maisha Wyman CHEF DE CUISINE Work Phone: [facility] Start: 05-24-2024 End: 05-24-2024 Refill Maisha Wyman CHEF DE CUISINE Work Phone: [facility] Comment on above: Chronic left shoulde r pain; Chronic pain of left knee Start: 05-02-2024 End: 05-02-2024 ambulatory [facility] Start: 03-15-2024 Preoperative state Maisha sheikh CHEF DE CUISINE Work Phone: [facility] Start: 11-12-2023 Orders Only Shaikh Reyes PAL[place]IO Work Phone: [facility] Comment on above: Chronic left shoulde r pain; Chronic pain of left knee Start: 09-08-2023 Patient encounter procedure Shaikh Reyes [...] Start: 12-31-2020 End: 01-03-2021 ambulatory PHYSICIAN UNKNOWN Facility:[facility] Procedures Date Procedure Procedure Detail Performing Clinician Start: 03-28-2025 Mri spinal canal cer vical w/o contrast matrl Generic External Data Provider Start: 01-24-2025 ALL CBC WITH AUTO DIFF Jose Guadalupe Mejia MD Work Phone: Start: 07-12-2024 ALL HEMOGLOBIN Maisha Wyman CHEF DE CUISINE Work Phone: Start: 01-08-2024 Mammography Maisha F itzpatrick CHEF DE CUISINE Work Phone: Start: 09-08-2023 Mammography Shaikh Mayelin rankin MD Work Phone: Start: 12-31-2020 ANESTH HIP ARTHROPLASTY HERMINIO ROBERTS Start: 12-31-2020 JOINT DEVICE (IMPLANTABLE) HERMINIO ROBERTS Start: 12-31-2020 TOTAL HIP ARTHROPLASTY HERMINIO ROBERTS Start: 10-05-2017 Colonoscopy Shaikh Mayelin rankin MD Work Phone: Plan of Treatment Date Care Activity Detail Author Start: 2077 Urine screening for protein Diabetes: Urine Protein Screening [facility] Start: 10-05-2027 Screening for malignant neoplasm of colon [facility] Start: 05-05-2026 Screening for malignant neoplasm of lung [facility] [place] Comment on above: Postponed from 03/10 (Other Medical Reasons) Start: 08-03-2025 End: 08-03-2025 Patient encounter procedure 08/03/2025 1:00 PM EDT Office Visit [facility] [address] [place] [phone] Jose Guadalupe Mejia MD [address] [place] [phone] [facility] Start: 06-05-2025 Influenza vaccination N [facility] Start: 05-03-2025 End: 05-03-2026 CT Chest for screening WO contrast CT lung screening low dose Imaging Routine Former smoker Expected: 05/03/2025, Expires: 05/03/2026 [facility] [place] Work Phone: Comment on above: Expected: 05/03/2025 , Expires: 05/03/2026 Start: 05-03-2025 End: 05-03-2025 Patient encounter procedure [facility] Comment on above: Arrived Start: 03-22-2025 End: 03-22-2025 Patient encounter procedure 03/22/2025 1:45 PM EDT Office Visit [facility] [address] [place] [phone] Jose Guadalupe Mejia MD [address] [place] [phone] [facility] Start: 01-07-2025 Screening for malignant neoplasm of breast Mammogram [facility] [place] Start: 12-15-2024 End: 12-15-2024 Patient encounter procedure 12/15/2024 3:00 PM EDT Office Visit [facility] [address] [place] [phone] Maisha Wyman, FREDO [address] [place] [address] [facility] Start: 10-11-2024 End: 10-11-2024 Patient encounter procedure 10/11/2024 10:45 AM EST Office Visit [facility] [address] [place] [address] Jr. Alessandro Mcconnell, DO [address] [facility] [place] [address] [facility] Start: 09-13-2024 End: 09-13-2024 Patient encounter procedure [facility] Comment on above: Arrived Start: 09-08-2024 Medicare Annual Wellness (AWV) Medicare Annual Wellness (AWV) [facility] [place] Start: 09-08-2024 Screening for malignant neoplasm of breast Mammogram [facility] [place] Start: 07-07-2024 End: 07-07-2025 Pulmonary function report Pulmonary Function Test Imaging Routine Suspected chronic obstructive pulmonary disease based on initial evaluation ([facility]) Expected: 07/07/2024, Expires: 07/07/2025 [facility] Work Phone: Comment on above: Expected: 07/07/2024 , Expires: 07/07/2025 Start: 06-14-2024 End: 06-14-2024 Patient encounter procedure [facility] Comment on above: Arrived Start: 06-14-2024 End: 06-14-2025 XR Knee - bilateral AP W standing XR knees anteroposterior standing bilateral Imaging Routine Chronic pain of left knee Expected: 06/14/2024, Expires: 06/14/2025 [facility] Work Phone: Comment on above: Expected: 06/14/2024 , Expires: 06/14/2025 Start: 06-05-2024 Influenza vaccination Influenza Vacc ine (#1) [facility] Start: 12-09-2023 End: 12-09-2023 Patient encounter procedure 12/09/2023 3:30 PM EST Office Visit [facility] [address] [place] [phone] Shaikh Chambers MD [address] [place] [phone] [facility] Start: 06-05-2023 Influenza vaccination Influenza Vacc ine (#1) [facility] Start: 2023 Pneumococcal Vaccine : 65+ Years (1 - PCV) Pneumococcal Vaccine: 65+ Years (1 - PCV) [facility] Start: 1988 Screening for malignant neoplasm of cervix [facility] Start: 1979 Screening for malignant neoplasm of cervix Pap Smear [facility] Start: 1977 Pneumococcal Vaccine : 65+ Years (1 of 2 - PCV) Pneumococcal Vaccine: 65+ Years (1 of 2 - PCV) [facility] Start: 1964 Pneumococcal Vaccine : 65+ Years (1 of 2 - PCV) Pneumococcal Vaccine: 65+ Years (1 of 2 - PCV) [facility] [place] Start: 1960 Screening for malignant neoplasm of colon [facility] Start: 1958 Screening for malignant neoplasm of lung Lung Cancer Screening Shared Decision Making [facility] [place] Immunizations Immunization Date Immunization Notes Care Provider Fa cili 10-20-2022 tetanus toxoid, redu liudmila diphtheria toxoid, and acellular pertussis vaccine, adsorbed Maisha Wyman [employer]F [employer] CUISINE Work Phone: [facility] [place] 10-20-2022 zoster vaccine recombinant Maisha Wyman [employer]F [employer]ISINE Work Phone: [facility] [place] 10-01-2022 influenza, injectabl e, quadrivalent, preservative free Maisha Wyman [employer]F DE CUISINE Work Phone: [facility] [place] 10-01-2022 influenza virus vaccine, unspecified formulation Shaikh Reyes PALACIO Work Phone: [facility] [place] 12-24-2010 hepatitis B vaccine, pediatric or pediatric/adolescent dosage Maisha Wyman CHEF DE CUISINE Work Phone: [facility] [place] 10-18-2010 hepatitis B vaccine, pediatric or pediatric/adolescent dosage Maisha Wyman CHEF DE CUISINE Work Phone: [facility] [place] 06-28-2010 hepatitis B vaccine, pediatric or pediatric/adolescent dosage Maisha Wyman CHEF DE CUISINE Work Phone: [facility] Payers Date Payer Category Payer Unknown 2021 Medicare [employer]AGE [facility] MEDICARE ADVANTAGE [id number] 2021-Present [address] [place] [id number] 2021 Medicare (Managed Care) [facility] Member Subscriber Plan / Payer (Effective 2021-Present) Name: Blanca Moe Relation to Subscriber: Self Name: Blanca Moe Payer ID: Not on file Group ID: [id number] Type: Not on file Address: [address] [place] [id number] 1959 Unknown [id number] 1960 Unknown [id number] 2.16.840.1.050615.3.579. 2.647 1958 Unknown [id number] 2.16.840.1.633829.3.579. 2.593 1958 Unknown [id number] 2.16.840.1.333952.3.579. 2.593 1958 Unknown [id number] 2.16.840.1.750559.3.579. 2.593 1958 Unknown [id number] 2.16.840.1.487925.3.579. 2.593 1958 Unknown [id number] 2.16.840.1.540413.3.579. 2.593 1958 Unknown [id number] 2.16.840.1.028885.3.579. 2.593 1958 Unknown [id number] 2.16.840.1.256344.3.579. 2.593 1958 Unknown [id number] 2.16.840.1.813311.3.579. 2.593 1958 Unknown [id number] 2.16.840.1.506293.3.579. 2.593 1958 Unknown [id number] 2.16.840.1.500602.3.579. 2.196 1958 Unknown [id number] 2.16.840.1.222293.3.579. 2.196 1958 Unknown [id number] 2.16.840.1.701447.3.579. 2.196 1958 Unknown [id number] 2.16.840.1.082611.3.579. 2.1259 1958 Unknown [id number] 2.16840.1.484752.3.579. 2.1259 1958 Unknown [id number] 2.16.840.1.610415.3.579. 2.1259 1958 Unknown [id number] 2.16840.1.742444.3.579. 2.1259 1958 Unknown [id number] 2.16840.1.643398.3.579. 2.1259 Social History Date Type Detail Facility Start: 09-08-2023 End: 03-15-2024 Tobacco smoking status PAIS Ex-smoker [facility] are Start: 12-03-1980 End: 12-03-2020 History of tobacco use Current smoker [facility] Start: 12-03-1980 End: 12-03-2020 History of tobacco use Cigarette Smoker [facility] Start: 09-08-2023 End: 06-14-2024 Cigarettes smoked current (pack per day) - Reported 1 [facility] Start: 09-08-2023 End: 03-15-2024 Tobacco use and exposure Smokeless tobacco non-user [facility] Start: 09-08-2023 End: 05-03-2025 Alcohol intake Ex-drinker (finding) [facility] Start: [...] to any clubs or organizations such as anabaptism groups, [employer], [employer] or athletic groups, or school groups? Yes [...] Alcohol Comment quit 10 years ago [facility] Start: 1960 Sex Assigned At Not on file [facility] History of tobacco use Passive smoker [facility] Clinical Notes 12-17-2022 to 05-03-2025 Jose Guadalupe Mejia MD - 05/03/2025 6:04 PM Srinivas Mejia MD - 05/03/2025 6:04 PM EDMendy Mejia MD - 05/03/2025 6:04 PM EDMendy Mejia MD - 05/03/2025 6:04 PM EDTPatient Instructions Note Date & Type Note Facility 05-03-2025 History of Presen t illness Narrative Associated Problem(s): COPD (chronic obstructive pulmonary disease) (HCC) Breathing unchanged and use albuterol PRN. Associated Problem(s): Former smoker Quit smoking in 2020 and prior 40 plus pack year history. Check LDCT chest. Associated Problem(s): MDD (major depressive disorder), recurrent episode, mild Symptoms controlled with paxil and continue. Associated Problem(s): Primary hypertension BP controlled and monitor PRN. Associated Problem(s): Primary insomnia Not sleeping well and try trazodone. Associated Problem(s): Primary osteoarthritis of left knee Continued pain and will need replacement. Follow with ortho. Images from the original note were not included. Subjective Patient ID: Blanca Moe is a 65 y.o. female who [...] told needs replacement. Referred to dentist but needs cleared due to hip. Left shoulder pain unchanged. [...] screening low dose documented in this encounter [facility] [place] 03-06-2025 Telephone encount er Note Patient called in asking for a refill on her powder inhaler. [facility] [place] 03-06-2025 Miscellaneous Notes Formattin g of this note might be different from the original. Patient called in asking for a refill on her powder inhaler. documented in this encounter [facility] [place] 01-25-2025 Telephone encount er Note [facility] 01-25-2025 Miscellaneous Notes Formattin g of this note might be different from the original. documented in this encounter [facility] [place] 11-08-2024 Telephone encount er Note LAKSHMI:09/13/2024 NOV:12/15/2024 [facility] [place] 11-08-2024 Miscellaneous Notes Formattin g of this note might be different from the original. [place]SHMI:09/13/2024 NOV:12/15/2024 documented in this encounter [facility] [place] 10-26-2024 Telephone encount er Note [place]SH[place]:09/13/2024 NOV:12/15/2024 [facility] [place] 10-26-2024 Miscellaneous Notes Formattin g of this note might be different from the original. [place]AKSHMI:09/13/2024 NOV:12/15/2024 documented in this encounter [facility] [place] 09-13-2024 History of Presen t illness Narrative [...] R ALBUMIN GLOBULIN RATIO 1.0 Resulting Agency [facility] Is following with ortho and PM. Is [...] List Items Addressed This Visit Primary hypertension ([facility]) Currently taking Carvedilol 25mg Hydrochlorothiazide 25mg Losartan 100mg Checks BP at home; Averages on log are 100's 70's. Too tightly controlled. Will decrease Losartan to 50mg today. Denies orthostatic changes, dizziness, shortness of breath, swelling in extremities. Given BP log, advised pt to record BP and bring log back with them to next visit. Relevant Medications losartan (Cozaar) 50 MG tablet Mixed hyperlipidemia ([facility]) - Primary Currently taking Simvastatin 20mg Denies any myalgias. Continue current regimen. Suspected chronic obstructive pulmonary disease based on initial evaluation ([facility]) Former smoker, smoked for about 40 years. [...] (Advair Diskus) 100-50 MCG/ACT aerosol powder Asthma (CMS/HCC) Relevant Medications Fluticasone-Salmeterol (Advair Diskus) 100-50 MCG/ACT aerosol powder documented in this encounter [facility] 09-13-2024 Instructions Maisha Wyman NP - 09/13/2024 3:00 PM EST Start using Advair diskus DAILY. Use Albuterol NEEDED. documented in this encounter [facility] [place] 08-24-2024 Telephone encount er Note LAKSHMI:06/14/2024 NOV:09/13/2024 [facility] 08-24-2024 Miscellaneous Notes Formattin g of this note might be different from the original. LAKSHMI:06/14/2024 NOV:09/13/2024 documented in this encounter [facility] [place] 08-18-2024 Telephone encount er Note LAKSHMI:06/14/2024 NOV:09/04/2024 [facility] [place] 08-18-2024 Miscellaneous Notes Formattin g of this note might be different from the original. LAKSHMI:06/14/2024 NOV:09/04/2024 documented in this encounter [facility] [place] 08-16-2024 History of Presen t illness Narrative [...] STIFFNESS- DENIES SWELLING-+INSTABILITY - +OXYCODONE PER MAISHA MASTERSONZPATRICK - +NABUMATONE/TYLENOL ALLERGIES: Allergies Allergen Reactions Aspirin [...] 500 MG capsule as directed Orally Evening [place]rales Oil 1000 MG capsule as directed Orally [...] drink Frequency of Binge Drinking: Never IMAGING: [address] [address] XRay Report Signed Patient: BLANCA MOE MR#: [id number] : 1960 Acct:[id number] Age/Sex: 64 / F ADM Date: 07/29/24 Loc: [facility] Attending Dr: MAISHA WYMAN Ordering Physician: MAISHA WYMAN Date of Service: 07/29/24 Procedure(s): XR knee standing BI Accession Number(s): [id number] cc: MAISHA WYMAN [place] [id number] Patient Name: BLANCA MOE MRN: [id number] date: 1960 Sex: F Assigned Patient Location: [facility] Current Patient Location: Accession/Order Number: [id number] Exam Date: 07/29/2024 14:10 Report Date: 08/01/2024 [...] marked narrowing of the medial compartment with [id number] articulation. Large periarticular degenerative osteophytes involving the [...] xray in office Reviewed WB xray from [facility], severe DJD with bone loss Medial [...] requiring urgent evaluation. documented in this encounter [facility] 08-16-2024 Telephone encount er Note LAKSHMI:06/14/2024 NOV:09/13/2024 [facility] 08-16-2024 Miscellaneous Notes Formattin g of this note might be different from the original. LAKSHMI:06/14/2024 NOV:09/13/2024 documented in this encounter [facility] 07-26-2024 Telephone encount er Note Pt states she used to be directed to take her paxil 20 mg and split it in half, she wanted to explain to you she does not actually take the 20 mg She also would like a refill on her Oxycodone. LAKSHMI:06/14/2024 NOV:09/13/2024 [facility] 07-26-2024 Miscellaneous Notes Formattin g of this note might be different from the original. Pt states she used to be directed to take her paxil 20 mg and split it in half, she wanted to explain to you she does not actually take the 20 mg She also would like a refill on her Oxycodone. LAKSHMI:06/14/2024 NOV:09/13/2024 documented in this encounter [facility] [place] 06-14-2024 History of Presen t illness Narrative Associated Problem(s): Suspected chronic obstructive pulmonary disease based on initial evaluation (CMS/[facility]) Former smoker, smoked for about 40 years. Reports intermittent wheezing. No formal testing/diagnosis of obstructive lung disease. Albuterol as needed. Dr. Chambers ordered PFT's in March 2024- pt has still yet to complete. Reprinted order today. Associated Problem(s): Mixed hyperlipidemia (CMS/[facility]) Currently taking Simvastatin 20mg Denies any myalgias. [...] ALBUMIN GLOBULIN RATIO 1.0 Resulting Agency [facility] Review of Systems Constitutional: Negative for [...] Items Addressed This Visit Primary hypertension (CMS/HCC) - Primary Currently taking Carvedilol 25mg Hydrochlorothiazide [...] XR knees anteroposterior standing bilateral Mixed hyperlipidemia (CMS/HCC) Currently taking Simvastatin 20mg Denies any myalgias. Most recent Lipid Panel in 03/2024 WNL Continue current regimen. Suspected chronic obstructive pulmonary disease based on initial evaluation (CMS/[facility]) Former smoker, smoked for about 40 years. [...] MCG/ACT nasal spray documented in this encounter [facility] 06-14-2024 Instructions Maisha yWman NP - 06/14/2024 3:00 PM EDT Have [...] [facility] EMERGENCY DEPARTMENT. documented in this encounter [facility] 12-17-2022 Note PROCEDURE: XR HIP RT 2 [...] authenticated by: SLIME MILLAN Date: 2022-12-17 16:26 [facility] Evaluation note Diagnosis Chronic left shoulder pain Pain in joint, shoulder region Chronic pain of left knee documented in this encounter [facility]* Diagnosis Suspected chronic obstructive pulmonary disease based on initial evaluation ([facility]/HCC)- Primary documented in this encounter [facility]* Diagnosis Suspected chronic obstructive pulmonary disease based on initial evaluation ([facility])- Primary Mild intermittent asthma without complication ([facility]) [facility] [...] disease based on initial evaluation (CMS/[facility]) Pre-operative clearance- Primary Unspecified pre-operative examination [...] disease based on initial evaluation (CMS/[facility]) Pre-operative clearance- Primary Unspecified pre-operative examination Primary hypertension (CMS/HCC)- Primary Unspecified essential hypertension Symptoms of upper respiratory infection (URI) Chronic left shoulder pain Pain in joint, shoulder region Mixed hyperlipidemia (CMS/HCC) Mixed hyperlipidemia Suspected chronic obstructive pulmonary disease based on initial evaluation ([facility]) Chronic pain of left knee Osteoarthritis of both knees, unspecified osteoarthritis type- Primary documented in this encounter [facility]* Diagnosis Primary hypertension (CMS/HCC)- Primary [...] evaluation (CMS/HCC) Chronic pain of left knee Acute pain of left knee- Primary Arthritis of left knee History of total right hip replacement documented in this encounter [facility]* Diagnosis Primary hypertension (CMS/HCC)- Primary [...] obstructive pulmonary disease based on initial evaluation ([facility]) Pre-operative clearance- Primary Unspecified pre-operative examination Primary hypertension (CMS/HCC)- Primary Unspecified essential hypertension Symptoms of upper respiratory infection (URI) Chronic left shoulder pain Pain in joint, shoulder region Mixed hyperlipidemia (CMS/HCC) Mixed hyperlipidemia Suspected chronic obstructive pulmonary disease based on initial evaluation ([facility]) Chronic pain of left knee Chronic left shoulder pain Pain in joint, shoulder region Chronic pain of left knee documented in this encounter [facility]* Diagnosis Primary hypertension (CMS/HCC)- Primary [...] obstructive pulmonary disease based on initial evaluation ([facility]) Pre-operative clearance- Primary Unspecified pre-operative examination Primary hypertension (CMS/HCC)- Primary Unspecified essential hypertension Symptoms of upper respiratory infection (URI) Chronic left shoulder pain Pain in joint, shoulder region Mixed hyperlipidemia (CMS/HCC) Mixed hyperlipidemia Suspected chronic obstructive pulmonary disease based on initial evaluation (CMS/HCC) Chronic pain of left knee Mixed hyperlipidemia (CMS/HCC) Mixed hyperlipidemia documented in this encounter [facility] [...] disease based on initial evaluation (CMS/[facility]) Pre-operative clearance- Primary Unspecified pre-operative examination Primary hypertension (CMS/HCC)- Primary Unspecified essential hypertension Symptoms of upper respiratory infection (URI) Chronic left shoulder pain Pain in joint, shoulder region Mixed hyperlipidemia (CMS/HCC) Mixed hyperlipidemia Suspected chronic obstructive pulmonary disease based on initial evaluation (CMS/HCC) Chronic pain of left knee Primary hypertension (CMS/HCC) Unspecified essential hypertension [facility] Diagnosis Osteoporosis without current pathological fracture, unspecified osteoporosis type ([facility]/HCC) [facility] [...] osteoporosis type (CMS/HCC) documented in this encounter [facility]* Diagnosis Primary hypertension (CMS/HCC)- Primary [...] fracture, unspecified osteoporosis type (CMS/HCC) Primary hypertension (CMS/HCC) Unspecified essential hypertension Hyperuricemia Other abnormal blood chemistry Chronic left shoulder pain Pain in joint, shoulder region Chronic pain of left knee Mixed hyperlipidemia (CMS/HCC) Mixed hyperlipidemia documented in this encounter [facility]* Diagnosis Chronic left shoulder pain Pain in joint, shoulder region Chronic pain of left knee [facility] Diagnosis Primary hypertension (CMS/HCC)- Primary Unspecified essential hypertension Symptoms of upper respiratory infection (URI) Chronic left shoulder pain Pain in joint, shoulder region Mixed hyperlipidemia (CMS/HCC) Mixed hyperlipidemia Suspected chronic obstructive pulmonary disease based on initial evaluation (CMS/[facility]) Chronic pain of left knee documented in this encounter [facility]* Diagnosis Primary hypertension (CMS/HCC) Unspecified essential hypertension Chronic left shoulder pain Pain in joint, shoulder region Chronic pain of left knee documented in this encounter [facility]* Diagnosis Primary hypertension (CMS/HCC)- Primary [...] obstructive pulmonary disease based on initial evaluation ([facility]) Hyperuricemia Other abnormal blood chemistry Primary hypertension [...] obstructive pulmonary disease based on initial evaluation ([facility]) Pre-operative clearance- Primary Unspecified pre-operative examination [...] obstructive pulmonary disease based on initial evaluation ([facility]) Mild intermittent asthma without complication (CMS/HCC) Primary hypertension ([facility]/HCC) Unspecified essential hypertension Osteoporosis without current [...] disease based on initial evaluation (CMS/[facility]) Pre-operative clearance- Primary Unspecified pre-operative examination [...] obstructive pulmonary disease based on initial evaluation ([facility]) Mild intermittent asthma without complication (CMS/HCC) Primary hypertension (CMS/HCC) Unspecified essential hypertension Osteoporosis without current pathological fracture, unspecified osteoporosis type (CMS/HCC) Chronic left shoulder pain Pain in joint, shoulder region Chronic pain of left knee documented in this encounter [facility]* Diagnosis Primary hypertension (CMS/HCC)- Primary [...] disease based on initial evaluation (CMS/[facility]) Pre-operative clearance- Primary Unspecified pre-operative examination [...] obstructive pulmonary disease based on initial evaluation ([facility]) Mild intermittent asthma without complication (CMS/HCC) Primary hypertension (CMS/HCC) Unspecified essential hypertension Osteoporosis without current pathological fracture, unspecified osteoporosis type (CMS/HCC) Primary hypertension (CMS/HCC)- Primary Unspecified essential hypertension MDD (major depressive disorder), recurrent episode, mild (HCC) (CMS/[facility]) Chronic obstructive pulmonary disease, unspecified COPD type [...] of left knee documented in this encounter [facility]* Diagnosis Primary hypertension (CMS/HCC)- Primary [...] disease based on initial evaluation (CMS/[facility]) Pre-operative clearance- Primary Unspecified pre-operative examination [...] mild (HCC) (CMS/HCC) documented in this encounter [facility]* Diagnosis Primary hypertension (CMS/HCC)- Primary [...] disease based on initial evaluation (CMS/[facility]) Pre-operative clearance- Primary Unspecified pre-operative examination [...] obstructive pulmonary disease based on initial evaluation ([facility]) Mild intermittent asthma without complication ([facility]/HCC) Primary hypertension (CMS/HCC) Unspecified essential hypertension Osteoporosis [...] of left knee documented in this encounter [facility] HealthcareEvaluation note* Diagnosis Primary hypertension (CMS/HCC)- Primary [...] obstructive pulmonary disease based on initial evaluation ([facility]) Pre-operative clearance- Primary Unspecified pre-operative examination [...] obstructive pulmonary disease based on initial evaluation ([facility]) Mild intermittent asthma without complication (CMS/HCC) Primary [...] glucose Dyslipidemia (CMS/HCC) Other and unspecified hyperlipidemia Suspected chronic obstructive pulmonary disease based on initial evaluation ([facility]) Mild intermittent asthma without complication (CMS/HCC) documented in this encounter [facility] HealthcareEvaluation note* Diagnosis Primary hypertension- Primary Unspecified essential hypertension Chronic left shoulder pain Pain in joint, shoulder region Chronic pain of left knee Encounter for Medicare annual wellness exam Mixed hyperlipidemia Mixed hyperlipidemia Nontraumatic complete tear of left rotator cuff Screening mammogram for breast cancer Primary hypertension- Primary Unspecified essential hypertension Chronic left shoulder pain Pain in joint, shoulder region Chronic pain of left knee Mixed hyperlipidemia Mixed hyperlipidemia Nontraumatic complete tear of left rotator cuff Primary hypertension- Primary Unspecified essential hypertension Mixed hyperlipidemia Mixed hyperlipidemia Nontraumatic complete tear of left rotator cuff Pre-operative clearance Unspecified pre-operative examination Suspected chronic obstructive pulmonary disease based on initial evaluation ([facility]) Pre-operative clearance- Primary Unspecified pre-operative examination Primary hypertension- Primary Unspecified essential hypertension Symptoms of upper respiratory infection (URI) Chronic left shoulder pain Pain in joint, shoulder region Mixed hyperlipidemia Mixed hyperlipidemia Suspected chronic obstructive pulmonary disease based on initial evaluation ([facility]) Chronic pain of left knee Mixed hyperlipidemia- Primary Mixed hyperlipidemia Suspected chronic obstructive pulmonary disease based on initial evaluation ([facility]) Mild intermittent asthma without complication ([facility]) Primary hypertension Unspecified essential hypertension Osteoporosis without current pathological fracture, unspecified osteoporosis type Primary hypertension- Primary Unspecified essential hypertension MDD (major depressive disorder), recurrent episode, mild Chronic obstructive pulmonary disease, unspecified COPD type (HCC) Primary osteoarthritis of left knee Rotator cuff arthropathy of left shoulder Osteoporosis without current pathological fracture, unspecified osteoporosis type Class 1 obesity due to excess calories with serious comorbidity and body mass index (BMI) of 30.0 to 30.9 in adult Encounter for long-term (current) use of medications Encounter for long-term (current) use of other medications Prediabetes Other abnormal glucose Dyslipidemia Other and unspecified hyperlipidemia Chronic left shoulder pain Pain in joint, shoulder region Chronic pain of left knee documented in this encounter [facility] HealthcareEvaluation note* Diagnosis Primary hypertension- Primary Unspecified essential hypertension Chronic left shoulder pain Pain in joint, shoulder region Chronic pain of left knee Encounter for Medicare annual wellness exam Mixed hyperlipidemia Mixed hyperlipidemia Nontraumatic complete tear of left rotator cuff Screening mammogram for breast cancer Primary hypertension- Primary Unspecified essential hypertension Chronic left shoulder pain Pain in joint, shoulder region Chronic pain of left knee Mixed hyperlipidemia Mixed hyperlipidemia Nontraumatic complete tear of left rotator cuff Primary hypertension- Primary Unspecified essential hypertension Mixed hyperlipidemia Mixed hyperlipidemia Nontraumatic complete tear of left rotator cuff Pre-operative clearance Unspecified pre-operative examination Suspected chronic obstructive pulmonary disease based on initial evaluation (HCC) Pre-operative clearance- Primary Unspecified pre-operative examination Primary hypertension- Primary Unspecified essential hypertension Symptoms of upper respiratory infection (URI) Chronic left shoulder pain Pain in joint, shoulder region Mixed hyperlipidemia Mixed hyperlipidemia Suspected chronic obstructive pulmonary disease based on initial evaluation (HCC) Chronic pain of left knee Mixed hyperlipidemia- Primary Mixed hyperlipidemia Suspected chronic obstructive pulmonary disease based on initial evaluation (HCC) Mild intermittent asthma without complication (HCC) Primary hypertension Unspecified essential hypertension Osteoporosis without current pathological fracture, unspecified osteoporosis type Primary hypertension- Primary Unspecified essential hypertension MDD (major depressive disorder), recurrent episode, mild Chronic obstructive pulmonary disease, unspecified COPD type (HCC) Primary osteoarthritis of left knee Rotator cuff arthropathy of left shoulder Osteoporosis without current pathological fracture, unspecified osteoporosis type Class 1 obesity due to excess calories with serious comorbidity and body mass index (BMI) of 30.0 to 30.9 in adult Encounter for long-term (current) use of medications Encounter for long-term (current) use of other medications Prediabetes Other abnormal glucose Dyslipidemia Other and unspecified hyperlipidemia Primary hypertension- Primary Unspecified essential hypertension Chronic obstructive pulmonary disease, unspecified COPD type (HCC) MDD (major depressive disorder), recurrent episode, mild Primary osteoarthritis of left knee Primary insomnia Persistent disorder of initiating or maintaining sleep Former smoker Personal history of tobacco use, presenting hazards to health documented in this encounter [facility] Summary [...] of left knee Maisha Wyman, FREDO [address] [place] [address] Referral ID Status Reason Start Date Expiration Date Visits Re quested Visits Authorized [id number] Closed 1 1 Additional Source Comments INFORMATION SOURCE (unrecogn ized section and content) DATE CREATED AUTHOR 02/27/2021 [facility] DATE CREATED AUTHOR AUTHOR'S ORGANIZ ATION 03/13/2023 [facility] DATE CREATED AUTHOR AUTHOR'S ORGANIZ ATION 03/13/2025 [facility] DATE CREATED AUTHOR AUTHOR'S ORGANIZ ATION 05/05/2025 [facility] Care Teams (unrecognized sec tion and content) [employer] Relationship Specialty Start Date End Date Shaikh Chambers MD PCP - General Internal Medicine 05/04/23 [employer] Relationship Specialty Start Date End Date Jose Guadalupe Mejia MD [address] [place] [phone] PCP - General Family Medicine 05/12/24 Maisha Wyman NP [address] [place] [address] Nurse Practitioner Family Medicine 05/12/24 [employer] Relationship Specialty Start Date End Date Jose Guadalupe Mejia MD [address] [place] [phone] PCP - General Family Medicine 05/12/24 Maisha Wmyan NP [address] [place] [address] Nurse Practitioner Family Medicine 05/12/24 [employer] Relationship Specialty Start Date End Date Jose Guadalupe Mejia MD [address] [place] [phone] PCP - General Family Medicine 05/12/24 Maisha Wyman NP [address] [place] [address] Nurse Practitioner Family Medicine 05/12/24 [employer] Officer Relationship Specialty Start Date End Date Jose Guadalupe Mejia MD [address] [place] [phone] PCP - General Family Medicine 05/12/24 Maisha Wyman NP [address] [place] [address] Nurse Practitioner Family Medicine 05/12/24 [employer] Officer Relationship Specialty Start Date End Date Unallocated, Noms MD Lyn [address] [place] [address] PCP - General Family Medicine 07/25/24 Maisha Wyman NP [address] [place] [address] Nurse Practitioner Family Medicine 05/12/24 [employer] Officer Relationship Specialty Start Date End Date Jose Guadalupe Mejia MD [address] [place] [address] PCP - General Family Medicine 08/04/24 Maisha Wyman NP [address] [place] [address] Nurse Practitioner Family Medicine 05/12/24 [employer] Officer Relationship Specialty Start Date End Date Jose Guadalupe Mejia MD [address] [place] [address] PCP - General Family Medicine 08/04/24 Maisha Wyman NP [address] [place] [address] Nurse Practitioner Family Medicine 05/12/24 [employer] Vehicle Officer Relationship Specialty Start Date End Date Jose Guadalupe Mejia MD [address] [place] [address] PCP - General Family Medicine 08/04/24 Maisha Wyman NP [address] [place] [address] Nurse Practitioner Family Medicine 05/12/24 [employer] Vehicle Officer Relationship Specialty Start Date End Date Jose Guadalupe Mejia MD [address] [place] [address] PCP - General Family Medicine 08/04/24 Maisha Wyman NP [address] [place] [address] Nurse Practitioner Family Medicine 05/12/24 [employer] Vehicle Officer Relationship Specialty Start Date End Date Jose Guadalupe Mejia MD [address] [place] [address] PCP - General Family Medicine 05/12/24 Maisha Wyman NP [address] [place] [address] Nurse Practitioner Family Medicine 05/12/24 [employer] Vehicle Officer Relationship Specialty Start Date End Date Jose Guadalupe Mejia MD [address] [place] [phone] PCP - General Family Medicine 08/04/24 Maisha Wyman NP [address] [place] [address] Nurse Practitioner Family Medicine 05/12/24 [employer] Vehicle Officer Relationship Specialty Start Date End Date Jose Guadalupe Mejia MD [address] [place] [address] PCP - General Family Medicine 08/04/24 Maisha Wyman NP [address] [place] [address] Nurse Practitioner Family Medicine 05/12/24 [employer] Vehicle Officer Relationship Specialty Start Date End Date Jose Guadalupe Mejia MD [address] [place] [address] PCP - General Family Medicine 08/04/24 Maisha Wyman NP [address] [place] [address] Nurse Practitioner Family Medicine 05/12/24 [employer] Vehicle Officer Relationship Specialty Start Date End Date Jose Guadalupe Mejia MD [address] [place] [address] PCP - General Family Medicine 05/12/24 Maisha Wyman NP [address] [place] [address] Nurse Practitioner Family Medicine 05/12/24 [employer] Vehicle Officer Relationship Specialty Start Date End Date Jose Guadalupe Mejia MD [address] [place] [phone] PCP - General Family Medicine 05/12/24 Maisha Wyman NP [address] [place] [address] Nurse Practitioner Family Medicine 05/12/24 [employer] Vehicle Officer Relationship Specialty Start Date End Date Jose Guadalupe Mejia MD [address] [place] [address] PCP - General Family Medicine 05/12/24 Maisha Wyman NP [address] [place] [address] Nurse Practitioner Family Medicine 05/12/24 [employer] Vehicle Officer Relationship Specialty Start Date End Date Jose Guadalupe Mejia MD [address] [place] [address] PCP - General Family Medicine 05/12/24 Maisha Wyman NP [address] [place] [address] Nurse Practitioner Family Medicine 05/12/24 [employer] Vehicle Officer Relationship Specialty Start Date End Date Jose Guadalupe Mejia MD [address] [place] [address] PCP - General Family Medicine 08/04/24 Maisha Wyman NP [address] [place] [address] Nurse Practitioner Family Medicine 05/12/24 [employer] Vehicle Officer Relationship Specialty Start Date End Date Jose Guadalupe Mejia MD [address] [place] [address] PCP - General Family Medicine 08/04/24 Maisha Wyman NP [address] [place] [address] Nurse Practitioner Family Medicine 05/12/24 [employer] Vehicle Officer Relationship Specialty Start Date End Date Jose Guadalupe Mejia MD [address] [place] [address] PCP - General Family Medicine 08/04/24 Maisha Wyman NP [address] [place] [address] Nurse Practitioner Family Medicine 05/12/24 [employer] Vehicle Officer Relationship Specialty Start Date End Date Jose Guadalupe Mejia MD [address] [place] [address] PCP - General Family Medicine 08/04/24 Shaikh Chambers MD [address] [place] [address] PCP - Yoanna FERNANDEZ 10/05/24 Maisha Wyman NP Nurse Practitioner Family Medicine 05/12/24 [employer] Vehicle Officer Relationship Specialty Start Date End Date Jose Guadalupe Mejia MD [address] [place] [address] PCP - General Family Medicine 08/04/24 Shaikh Chambers MD [address] [place] [address] PCP - Yoanna FERNANDEZ 10/05/24 Maisha Wyman NP Nurse Practitioner Family Medicine 05/12/24 [employer] Officer Relationship Specialty Start Date End Date Jose Guadalupe Mejia MD [address] [place] [address] PCP - General Family Medicine 08/04/24 Shaikh Chambers MD [address] [place] [address] PCP - Yoanna FERNANDEZ 10/05/24 Maisha Wyman NP Nurse Practitioner Family Medicine 05/12/24 [employer] Vehicle Officer Relationship Specialty Start Date End Date Jose Guadalupe Mejia MD [address] [place] [address] PCP - General Family Medicine 08/04/24 Shaikh Chambers MD [address] [place] [address] PCP - Yoanna FERNANDEZ 10/05/24 Maisha Wyman NP Nurse Practitioner Family Medicine 05/12/24 [employer] Vehicle Officer Relationship Specialty Start Date End Date Jose Guadalupe Mejia MD [address] [place] [address] PCP - General Family Medicine 08/04/24 Shaikh Chambers MD [address] [place] [address] PCP - Yoanna FERNANDEZ 10/05/24 Maisha Wyman NP Nurse Practitioner Family Medicine 05/12/24 [employer] Vehicle Officer Relationship Specialty Start Date End Date Jose Guadalupe Mejia MD [address] [place] [address] PCP - General Family Medicine 08/04/24 Shaikh Chambers MD [address] [place] [address] PCP - Yoanna FERNANDEZ 10/05/24 Maisha Wyman NP Nurse Practitioner Family Medicine 05/12/24 [employer] Vehicle Officer Relationship Specialty Start Date End Date Jose Guadalupe Mejia MD [address] [place] [address] PCP - General Family Medicine 08/04/24 Shaikh Chambers MD [address] [place] [address] PCP - Yoanna FERNANDEZ 10/05/24 Maisha Wyman NP Nurse Practitioner Family Medicine 05/12/24 [employer] Vehicle Officer Relationship Specialty Start Date End Date Jose Guadalupe Mejia MD [address] [place] [address] PCP - General Family Medicine 08/04/24 Shaikh Chambers MD [address] [place] [address] PCP - Yoanna FERNANDEZ 10/05/24 Maisha Wyman NP Nurse Practitioner Family Medicine 05/12/24 Reason for Visit (unrecogniz ed section and content) Reason Onset Date Comments Med Refill 07/14/2024 Reason Onset Date Comments Med Refill 07/26/2024 Reason Comments Pain Specialty Diagnoses / Procedures Referred By Contcurt t Referred To Contact Orthopaedic Surgery Diagnoses Osteoarthritis of both knees, unspecified osteoarthritis type Maisha Wyman NP [address] [place] [address] Phone: tel: fax: Duncan Bradshaw PA [address] [place] [address] [place] [address] Phone: tel: fax: Referral ID Status Reason Start Date Expiration Date V isits Requested Visits Authorized [id number] Closed Specialty Services Required 08/08/2024 02/04/2025 1 [...] Reason Onset Date Comments Med Refill 01/25/2025 Reason Onset Date Comments Med Refill 03/06/2025 Reason Onset Date Comments Med Refill 03/28/2025 Reason Onset Date Comments Med Refill 04/10/2025 Reason Onset Date Comments Med Refill 04/26/2025 Reason Comments Follow-up 3m FOR RECORDS PERTAINING TO PATIENTS WHO ARE [...] BE BASED ON THE PRIMARY CLINICAL RECORDS. [employer] provides no warranty or guarantee of the accuracy or completeness of information in this document.
--- NOTE | 2025-05-25 14:18 | PM.CN ---
Consult Note: HPI Data of Consult Patient: known to practice within the last 3 years Consult date: 05/25/25 Requesting Physician: Deysi Zhou NP Primary Care Provider: Jose Guadalupe Villafuerte MD Consult Narrative Reason for consult: neck, left arm, left shoulder pain Narrative: 65 year old female presents for evaluation and management of chronic neck and LUE pain. notes significant improvement in neck pain since last visit, however no improvement in left shoulder and LUE pain. pain today 2/10 sharping aching with numbness, tingling, weakness of left shoulder. pain increasing to 10/10 with lifting and ROM. has failed to benefit from cervical MBBs, left suprascapular/axillary RFA. utilizing tylenol, nabumetone, and gabapentin with benefit without side effects. on 05/15/25 underwent left C5-6 C6-7 TFESI with improvement in numbness tingling but no significant pain relief per pt. she is interested in seeing another orthopedic surgeon. cc:: CC: Deysi Zhou NP Review of Systems ROS Status of ROS 10 or more systems reviewed and unremarkable except as noted in history and below Musculoskeletal Reports: extremity pain Meds Home Medications and Allergies Home Medications ?Medication ?Instructions ?Recorded ?Confirmed ?Type acetaminophen 325 mg tablet 650 mg PO Q6H PRN pain 06/22/23 05/15/25 History (Tylenol) nabumetone 500 mg tablet 500 mg PO BID 06/22/23 05/15/25 History oxycodone 5 mg capsule 5 mg PO BID 06/22/23 05/15/25 History TUMERIC QDAY 06/24/23 History Vitamin B-Complex QDAY 06/24/23 History alendronate 35 mg tablet 35 mg PO QWEEK 06/24/23 05/15/25 History allopurinol 100 mg tablet 100 mg PO BID 06/24/23 05/15/25 History ascorbate calcium (vitamin C) 500 500 mg PO DAILY 06/24/23 05/15/25 History mg tablet bromelains 375 mg capsule mg PO 06/24/23 History calcium carb-ergocalciferol (vit tab PO 06/24/23 History D2) 600 mg calcium-200 unit tablet carvedilol 25 mg tablet (Coreg) 25 mg PO Q12H 06/24/23 05/15/25 History cholecalciferol (vitamin D3) 50 50 mcg PO DAILY 06/24/23 05/15/25 History mcg (2,000 unit) tablet (D3 DOTS) cinnamon bark 500 mg capsule 1,000 mg PO DAILY 06/24/23 05/15/25 History (Cinnamon) coenzyme Q10 100 mg capsule (Co 200 mg PO DAILY 06/24/23 05/15/25 History Q-10) cranberry extract 500 mg capsule 500 mg PO DAILY 06/24/23 05/15/25 History evening primrose oil 500 mg capsule 500 mg PO DAILY 06/24/23 05/15/25 History famotidine 20 mg tablet (Pepcid) 20 mg PO DAILY 06/24/23 05/15/25 History garlic 1,000 mg capsule (garlic 1,000 mg PO DAILY 06/24/23 05/15/25 History oil) ginkgo biloba 120 mg tablet 120 mg PO DAILY 06/24/23 05/15/25 History glucosamine sulfate 1,000 mg 1,000 mg PO DAILY 06/24/23 05/15/25 History capsule grape seed extract 50 mg capsule 100 mg PO DAILY 06/24/23 05/15/25 History green tea leaf extract 250 mg 500 mg PO QDAY 06/24/23 05/15/25 History capsule (Green Tea) hydrochlorothiazide 25 mg tablet 25 mg PO DAILY 06/24/23 05/15/25 History loratadine 10 mg capsule 10 mg PO DAILY 06/24/23 05/15/25 History losartan 100 mg tablet 100 mg PO DAILY 06/24/23 05/15/25 History melatonin 10 mg tablet 20 mg PO DAILY 06/24/23 05/15/25 History multivitamin 1 tab PO DAILY 06/24/23 05/15/25 History omega 9-cdl-xpf-fish oil 1,000 mg 2 cap PO DAILY 06/24/23 05/15/25 History (120 mg-180 mg) capsule (Fish Oil) paroxetine HCl 10 mg tablet (Paxil) 10 mg PO DAILY 06/24/23 05/15/25 History simvastatin 20 mg tablet 20 mg PO DAILY 06/24/23 05/15/25 History vitamin E 200 unit capsule 200 unit PO DAILY 06/24/23 05/15/25 History gabapentin 300 mg capsule 300 mg PO TID #90 caps 05/03/25 05/15/25 Rx Allergies Allergy/AdvReac Type Severity Reaction Status Date / Time aspirin Allergy Mild unkown Verified 05/15/25 10:10 Exam Narrative Exam Narrative: Psych-alert and oriented x 3.? Attentive and appropriate, constitutionally normal, displays normal mood and affect per situation.? There are no obvious deficits in memory, reasoning, or intellect.? Skin-no obvious rashes, bruising, or erythema noted to the patient's area of pain.? Extremities-upper extremities are warm with minimal edema and palpable pulses. Cervical- no tenderness to palpation noted in the cervical spine and paraspinal musculature.? minimal pain is elicited with flexion, extension, and lateral rotation of the cervical spine.? Range of motion is diminished due to pain. Facet loading maneuvers are negative.? Strength-unremarkable and within normal limits with the exception to the left biceps. Sensory-no notable sensory deficits in the bilateral upper extremities to touch or pinprick Shoulder - tender to palpation in left shoulder. Pain with abduction, external rotation of left shoulder. Coordination remains intact.? Gait remains non-antalgic. Results Imaging cervical MRI: Attestation: I have reviewed the pertinent imaging results. Radiologist's impression: FINDINGS: The bones of the cervical spine are in anatomic alignment. There is preservation of vertebral body heights. There is moderate disc height loss at C5-C6 and C6-C7. There is mild disc height loss at C3-C4 and C4-C5. There is accompanying Modic type III endplate sclerosis. The marrow signal is within normal limits. There is nonspecific T2 hyperintense signal in the posterior aspect of the cervical cord in the midline at C2, C3, and C4. No epidural or paraspinous fluid collection is appreciated. The visualized paraspinous soft tissues are within normal limits. The prevertebral soft tissues are within normal limits. At C2-C3: There is a normal disc, central canal, and neural foramen. At C3-C4: There is a broad-based disc bulge with facet hypertrophy and uncovertebral joint spurring contributing to moderate left and mild right neural foraminal narrowing. There is mild spinal canal narrowing. At C4-C5: There is uncovertebral joint spurring and facet hypertrophy left greater than right. There is severe left and mild right neural foraminal narrowing with mild spinal canal narrowing. At C5-C6: There is a broad-based disc bulge with uncovertebral joint spurring and facet hypertrophy. There is severe right and moderate to severe left neural foraminal narrowing with moderate spinal canal narrowing. At C6-C7: There is a broad-based disc bulge with facet and uncovertebral joint degenerative change. There is moderate right and mild left neural foraminal narrowing with mild spinal canal narrowing. At C7-T1: There is a normal disc, central canal, and neural foramen. Assessment and Plan Assessment and Plan (1) Cervical radiculopathy: (2) Cervical stenosis of spinal canal: (3) Osteoarthritis of left shoulder: Qualifiers: Osteoarthritis type: primary Qualified Code(s): M19.012 - Primary osteoarthritis, left shoulder (4) Rotator cuff tear arthropathy of left shoulder: Plan refer to Dr Carias at [facility] for left shoulder pain/oa and hx of numerous tears continue current medications f/u 3 months, sooner if needed
== END 2025-05-25 13:55 | disposition home or self-care (01) ==
LOC: PM 13:54
PROVIDERS: PCP Family Medicine; Visit Provider Nurse Practitioner
DX: M54.12 Radiculopathy, cervical region (principal); M48.02 Spinal stenosis, cervical region; M19.012 Primary osteoarthritis, left shoulder; M75.102 Unspecified rotator cuff tear or rupture of left shoulder, not specified as traumatic
CPT/HCPCS: G0463

== ENCOUNTER 2025-08-30 12:11 | Outpatient (OUT) | payer MEDICARE, SELFPAY ==
--- OUTSIDE RECORDS SUMMARY | 2025-08-30 12:13 | XMS_ITS | Clinical Summary ---
Author Organization [facility] Address [id number] [address] [place] [address] Care Team Providers Care Certified Cytotechnologist Name Role Phone Unavailable Primary Care Provider Unavailabl e Social History Tobacco UseTypesPacks/DayYears UsedDateSmoking Tobacco: Never AssessedChildcare AnswerDate JcehnwzbUpptmpbluMzjylgn49/12/2019EmploymentAnswerDate Recorded VqfqvjhemtJfnuznt00/12/2019CommentsUnknownSex and Gender Information ValueDate RecordedSex Assigned at BirthNot on fileLegal QmgUyjjlk10/06/2015 11:24 AM EDTGender IdentityNot on fileSexual OrientationNot on file Plan of Treatment Not on file Medical Devices Not on file
--- OUTSIDE RECORDS SUMMARY | 2025-08-30 12:13 | XMS_ITS | Clinical Summary ---
Demographics Address [address] [place] [address] Home Phone Mobile Phone Preferred Language en Marital Status Single Scientologist Affiliation Unknown Race White Ethnic Group Not or Lati no Author Organization [facility] Address [address] [place] [address] Care Team Providers Care Concrete Block Mason Name Role Phone Unavailable Primary Care Provider Unavailabl e Social History Tobacco UseTypesPacks/DayYears UsedDateSmoking Tobacco: Never Assessed CommentsUnknownSex and Gender InformationValueDate RecordedSex Assigned at Not on fileLegal AueYeltoc92/30/2022 12:14 AM EDTGender IdentityNot on file Sexual OrientationNot on file Last Filed Vital Signs Vital SignReadingTime TakenCommentsBlood Pressure--Pulse--Temperature-- Respiratory Rate--Oxygen Saturation--Inhaled Oxygen Concentration--Oiwdlu22.2 kg (157 lb)03/07/2021 2:23 PM EJRFhkckz191.6 cm (5' 6 )03/07/2021 2:23 PM EDTBody Mass Index25.3406 2:23 PM EDT Plan of Treatment Not on file
--- OUTSIDE RECORDS SUMMARY | 2025-08-30 12:13 | XMS_ITS | Clinical Summary ---
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 Role Phone Joanna Wyman NP Unavailable [phone] Jose Guadalupe Villafuerte MD Primary Care Provider [phone] Allergies Active AllergyReactionsCriticalityNoted DxxpMjkegfzyGlnbycvLsugCje99/27/2023 Medications MedicationSigDispense QuantityRefillsLast FilledStart DateEnd DateStatus Cranberry 500 MG capsule as directed OrallyActive cholecalciferol (Vitamin D-3) 25 MCG (1000 UT) capsule 1 capsule 1 (one) time each day at the same time.Active cinnamon 500 MG capsule as directed OrallyActive coenzyme Q-10 100 MG capsule as directed OrallyActive omega-3 (FISH OIL) 300 MG capsule Fish OilActive loratadine (Claritin) 10 MG tablet 1 (one) time each day at the same time.Active Garlic 2 MG capsule GarlicActive Ginkgo Biloba 40 MG tablet Ginko BilobaActive Grape Seed Extract 30 MG capsule Grape Seed ExtractActive Pediatric Multivitamins-Fl (MultiVitamin + Fluoride) 0.25 MG chewable tablet MultivitaminActive B Complex Vitamins (VITAMIN B COMPLEX 100 IJ) Vitamin B ComplexActive calcium carbonate 1500 (600 Ca) MG tablet every 12 (twelve) hours.Active Evening [place] Oil 1000 MG capsule as directed OrallyActive famotidine (Pepcid) 20 MG tablet 1 (one) time each day at the same time.Active Glucosamine Sulfate 1000 MG capsule 1 (one) time each day at the same time.Active Turmeric Curcumin 500 MG capsule as directed OrallyActive alpha tocopherol (Vitamin E) 400 units capsule 1 capsule 1 (one) time each day at the same time.Active gabapentin (Neurontin) 300 MG capsule Take 300 mg by mouth in the morning and 300 mg in the evening and 300 mg before bedtime.3Active albuterol HFA 90 mcg/act inhaler Indications:Suspected chronic obstructive pulmonary disease based on initial evaluationInhale 2 puffs every 4 (four) hours if needed for wheezing 8.5 g 4Active simvastatin (Zocor) 20 MG tablet Indications:Mixed hyperlipidemiaTake 1 tablet (20 mg) by mouth 1 (one) time each day at the same time 90 tablet 5Active alendronate (Fosamax) 35 MG tablet Indications:Osteoporosis without current pathological fracture, unspecified osteoporosis typeTake 1 tablet (35 mg) by mouth every 7 (seven) days Take in the morning with a full glass of water,on an empty stomach, and do not take anything else by mouth or lie down for the next 30 min. 12 tablet 5Active allopurinol (Zyloprim) 100 MG tablet Indications:HyperuricemiaTake 1 tablet (100 mg) by mouth in the morning and 1 tablet (100 mg) before bedtime. 180 tablet 5Active carvedilol (Coreg) 25 MG tablet Indications:Primary hypertensionTake 1 tablet (25 mg) by mouth in the morning and 1 tablet (25 mg) in the evening. Take with meals. 180 tablet 5Active PARoxetine (Paxil) 20 MG tablet Indications:MDD (major depressive disorder), recurrent episode, mildTake 0.5 tablets (10 mg) by mouth Daily 30 tablet 5Active Fluticasone-Salmeterol (Advair Diskus) 100-50 MCG/ACT aerosol powder Indications:Suspected chronic obstructive pulmonary disease based on initial evaluation,Mild intermittent asthma without complication (HCC)Inhale 1 puff Daily 60 each 5Active nabumetone (Relafen) 500 MG tablet Indications:Chronic left shoulder pain,Chronic pain of left kneeTake 1 tablet (500 mg) by mouth 2 (two) times a day as needed for mild pain 60 tablet 5Active traZODone (Desyrel) 50 MG tablet Indications:Primary insomniaTake 1 tablet (50 mg) by mouth at bedtime 30 tablet 5Active hydroCHLOROthiazide (HYDRODiuril) 25 MG tablet Indications:Primary hypertensionTake 1 tablet (25 mg) by mouth in the morning. 90 tablet 1085Active losartan (Cozaar) 100 MG tablet Indications:Primary hypertensionTake 1 tablet (100 mg) by mouth Daily 90 tablet 3085Active Active Problems ProblemNoted DateDiagnosed DatePrimary /30/2025 Assessment & Plan (05/03/2025 6:03 PM EDT): Not sleeping well and try trazodone. Former tjxvxz1405/03/2025 Assessment & Plan (05/03/2025 6:04 PM EDT): Quit smoking in 2020 and prior 40 plus pack year history. Check LDCT chest. Vgudhhruomy54/18/2025MDD (major depressive disorder), recurrent episode, mild 12/20/2024 Assessment & Plan (05/03/2025 6:04 PM EDT): Symptoms controlled with paxil and continue. Assessment & Plan (12/20/2024 3:03 PM EDT): Symptoms controlled with paxil and continue. Encounter for long-term (current) use of kujophxsyxu62/18/2025Class 1 obesity due to excess calories with serious comorbidity and body mass index (BMI) of 30.0 to 30.9 in adult12/20/2024 Assessment & Plan (12/20/2024 3:03 PM EDT): Weight loss indicated. Dlqpcbdgflmo59/18/2025 Assessment & Plan (12/20/2024 3:03 PM EDT): Repeat DEXA. Pre-operative xmoczquzp91/11/2024 Assessment & Plan (03/31/2024 2:44 PM EDT): [...] to surgical risk. COPD (chronic obstructive pulmonary disease)03/15/2024 Assessment & Plan (05/03/2025 6:04 PM EDT): [...] disease. Order PFTs. Albuterol as needed. Primary hxwnxvtocvgn75/05/2023 Assessment & Plan (05/03/2025 6:04 PM EDT): [...] Check labs. Rotator cuff arthropathy of left rrhaqukr05/05/2023 Assessment & Plan (12/20/2024 3:04 PM EDT): Pain tolerable with medication and continue. Assessment & Plan (06/14/2024 3:25 PM EDT): Work up revealed rotator cuff tear. Was referred to ortho, was told she needs shoulder replacement.Stopped going after she decided she did not [...] Orthopedic surgery. Encounter for Medicare annual wellness exam09/08/2023 Assessment & Plan (09/09/2023 1:18 PM EST): Recommended to get Influenza, Pneumococcal vaccine. Mammogram ordered. Colonoscopy in 2018 Eefgrnkygova61/05/2023 Assessment & Plan (09/13/2024 3:25 PM EST): [...] panel. Nontraumatic complete tear of left rotator cuff09/08/2023 Assessment & Plan (03/15/2024 3:35 PM EDT): [...] to call Orthopedic Primary osteoarthritis of left knee04/30/2023 Assessment & Plan (05/03/2025 6:02 PM EDT): Continued pain and will need replacement. Follow with ortho. Assessment & Plan (12/20/2024 3:04 PM EDT): Continued pain and will need replacement. Follow with ortho. Primary osteoarthritis of right hip04/30/2023rimary osteoarthritis of right knee04/30/2023 Resolved Problems ProblemNoted DateDiagnosed DateResolved DateSymptoms of upper respiratory infection (URI)/ Assessment & Plan (06/14/2024 3:09 PM EDT): [...] allergy medication once daily. Flonase nasal spray 1-2squirts in each nostril at night. Tylenol for fever and body aches. Mucinex for cough/congestion 600-1,200mg twice daily. Delsym for a dry cough Vitamins: Vitamin C 1,000mg per day. Vitamin D3 2,000 international unit(s) per day.Zinc 25mg per day. WORSENING SYMPTOMS, CHEST PAIN, OR SHORTNESS OF BREATH, GO TO THE NEAREST EMERGENCY DEPARTMENT. Chronic pain of left knee/ Assessment & Plan (06/14/2024 3:24 PM EDT): Chronic left knee pain due to degenerative arthritis, uses a walker to ambulate. Pain is persistentwith periods of worsening pain. She is using nabumetone along with oxycodone as needed for pain. Last xrays done in 2020. Ordered new xrays today. Will refer to ortho. Assessment & Plan (12/10/2023 4:47 PM EST): Chronic left knee pain due to degenerative arthritis, uses a walker to ambulate. Pain is persistentwith periods of worsening pain. She is using nabumetone along with oxycodone as needed for pain. Arthralgia of hipDifficulty ypfbyrw78 Arthritis of right hip04/30/Osteoarthritis resulting from right hip mzskgykkh55/Other chronic pain/ Osteoarthritis of both knees/Hip pain/ Eesnnk1812/20/2024 Encounters DateTypeDepartmentCare ElmpLkzehsjiqbp38/09/2025 3:30 PM EDTAncillary Procedure [facility] [address] [place] [address] Former labnxf8206/13/2025Travelfrom Last 3 Months Immunizations ImmunizationAdministration DatesNext DueHep B, Adolescent or Hlildbqnv96/22/2011 ,10/18/2010,06/28/2010Influenza, injectable, quadrivalent, preservative free 10/01/2022Tdap10/20/2022Zoster, Yfgbmuwsbsh57/16/2023 Family History Medical HistoryRelationNameCommentsHeart diseaseFatherBreast cancerMother HypertensionMotherLung cancerMotherRelationNameStatusCommentsFatherDeceased (Age 70) due to MIMotherDeceased Social History Tobacco UseTypesPacks/DayYears UsedDateSmoking Tobacco: LanimnBpvreswqhe091 12/03/1980 - 1Passive Smoke Exposure: PastSmokeless Tobacco: Never Tobacco Cessation:Counseling Given: Not Answered Comments:Last smoked 1-5 years Alcohol UseStandard Drinks/WeekCommentsNot Currently0 (1 standard drink = 0.6 oz pure alcohol)quit 10 years agoHumiliation, Afraid, Rape, and Kick questionnaire AnswerDate RecordedWithin the last year, have you been afraid of your partner or ex-partner?No09/08/2023Within the last year, have you been humiliated or emotionally abused in other ways by your partner or ex-partner?No09/08/2023 Within the last year, have you been kicked, hit, slapped, or otherwise physically hurt by your partner or ex-partner?No09/08/2023Within the last year, have you been raped or forced to have any kind of sexual activity by your part ner or ex-partner?No09/08/2023Social Connection and Isolation PanelAnswerDate RecordedIn a typical week, how many times do you talk on the phone with family, friends, or neighbors?Patient /05/2023How often do you get together with friends or relatives?Once a week09/08/2023How often do you attend advent or pentecostal services?More than 4 times per year09/08/2023o you belong to any clubs or organizations such as advent groups, unions, [employer] or athletic chai ups, or school groups?Yes09/08/2023How often do you attend meetings of the clubs or organizations you belong to?More than 4 times per year09/08/2023re you , , , , never , or living with a partner? Lttumuks06/05/2023UDIT-CAnswerDate RecordedQ1: How often do you have a drink containing alcohol?Never09/08/2023Q2: How many drinks containing alcohol do you have on a typical day when you are drinking?Patient does not drink09/08/2023Q3: How often do you have six or more drinks on one occasion?Never09/08/2023Overall Financial Resource Strain (CARDIA)AnswerDate RecordedHow hard is it for you to pay for the very basics like food, housing, medical care, and heating?Not very hard09/08/2023HQ-2AnswerDate RecordedPatient Health Questionnaire-2 Score0 03/15/2024[facility] - Occupational Stress QuestionnaireAnswerDate RecordedDo you feel stress - tense, restless, nervous, or anxious, or unable to sleep at night because yourmind is troubled all the time - these days?Not at all09/08/2023Exercise Vital SignAnswerDate RecordedOn average, how many days per week do you engage in moderate to strenuous exercise (like a brisk walk)?0 days09/08/2023On average, how many minutes do you engage in exercise at this level?0 min09/08/2023Hunger Vital SignAnswerDate Recorded Within the past 12 months, you worried that your food would run out before you got the money to buymore.Never true09/08/2023Within the past 12 months, the food you bought just didn't last and you didn't have money to get more.Never true 09/08/2023RAPARE - TransportationAnswerDate RecordedIn the past 12 months, has lack of transportation kept you from medical appointments or from getting medications?No09/08/2023In the past 12 months, has lack of transportation kept you from meetings, work, or from getting things needed for daily living?No 09/08/2023Housing Stability Vital SignAnswerDate RecordedIn the last 12 months, was there a time when you were not able to pay the mortgage or rent on time?No 09/08/2023In the last 12 months, how many places have you lived?In the last 12 months, was there a time when you did not have a steady place to sleep or slept in ashelter (including now)?No09/08/2023CommentsNoSex and Gender InformationValueDate RecordedSex Assigned at BirthNot on fileLegal Sex Prflul8212/17/2022 8:27 PM EDTGender IdentityNot on fileSexual OrientationNot on file Last Filed Vital Signs Vital SignReadingTime TakenCommentsBlood Mwwzyxly055/8407 1:49 PM EDT Tauzy135305/03/2025 1:49 PM KKZFycoudulmmq31.2 ??C (97.1 ??F)05/03/2025 1:49 PM EDTRespiratory Balf300805/03/2025 1:49 PM EDTOxygen Wyvtddctlc66%05/03/2025 1:49 PM EDTInhaled Oxygen Concentration--Ftksny35.8 kg (167 lb)05/03/2025 1:49 PM EDT Thkchf013.6 cm (5' 4 )05/03/2025 1:49 PM EDTBody Mass Index28.6707 1:49 PM EDT Plan of Treatment Not on file Procedures Procedure NamePriorityDate/TimeAssociated DiagnosisCommentsCT LUNG SCREENING LOW URGPObqmmzc71/09/2025 3:17 PM EDT Former smoker from Last 3 Months Results * CT lung screening low dose (06/13/2025 3:17 PM EDT)Anatomical RegionLaterality ModalityLungComputed TomographySpecimen (Source)Anatomical Location / LateralityCollection Method / VolumeCollection TimeReceived Time06/13/2025 4:10 PM EDT Impressions 06/14/2025 6:52 AM EDT Lung Rads: LUNGRADS 1 - Negative Follow-up Recommendation: LDCT 1 Year Lung Rads categories: Category 0: Incomplete ? Additional Imaging Categories 1 & 2: Negative/Benign Continue annual screening Category 3: Probable benign ? 6 month f/u CT Chest wo Category 3s: ?Clinically significant or potentially clinically significant ? findings Category 4A/B Suspicious 4A: [address] Chest wo; PET/CT when > 8mm solid ? nodulecomponent exists ? 4B: Chest w/ contrast; PET/CT and/or biopsy Category 5: Highly suspicious for ? Nodules with strong evidence of malignancy, requiring ?malignancy. ? immediate biopsy. Category 6: Incomplete ?Insufficient Information All CT scans at this facility use dose modulation, iterative reconstruction, and/or weight based dosing when appropriate to reduce radiation dose to as low as reasonably achievable. TRANSCRIBED BY: ? ELECTRONICALLY SIGNED BY: Percy Hargrove MD Narrative 06/14/2025 6:[address] LOW DOSE CT IMAGING OF THE CHEST WITHOUT INTRAVENOUS CONTRAST MEDIUM. HISTORY: Tobacco use. TECHNICAL FACTORS: Without IV contrast axial helical 1.25mm slice thickness low dose images of the chest performed forlung cancer screening. Findings: No suspicious lung nodule, mass or parenchymal consolidation. ?? No significant hilar or mediastinal lymphadenopathy. ??No pleural or pericardial effusion. Procedure Note Percy Hargrove MD - 06/14/[address] IMAGING OF THE CHEST WITHOUT INTRAVENOUS CONTRAST MEDIUM. HISTORY: Tobacco use. TECHNICAL FACTORS: Without IV contrast axial helical 1.25mm slice thickness low dose imagesof the chest performed for lung cancer screening. Findings: No suspicious lung nodule, mass or parenchymal consolidation. Nosignificant hilar or mediastinal lymphadenopathy. No pleural orpericardial effusion. IMPRESSION: Lung Rads: LUNGRADS 1 - Negative Follow-up Recommendation: LDCT 1 Year Lung Rads categories: Category 0: Incomplete Additional Imaging Categories 1 & 2: Negative/Benign Continue annual screening Category 3: Probable benign 6 month f/u CT Chest wo Category 3s: Clinicallysignificant or potentially clinically significant findings Category 4A/B Suspicious 4A: [address] Chest wo;PET/CT when > 8mm solid nodulecomponent exists 4B: Chestw/ contrast; PET/CT and/or biopsy Category 5: Highly suspicious for Nodules with strong evidenceof malignancy, requiring malignancy. immediatebiopsy. Category 6: Incomplete Insufficient Information All CT scans at this facility use dose modulation, iterativereconstruction, and/or weight based dosing when appropriate to reduceradiation dose to as low as reasonably achievable. TRANSCRIBED BY: ELECTRONICALLY SIGNED BY: Percy Hargrove MD Authorizing ProviderResult TypeResult StatusMarc Noy COLUNGA CT PROCEDURES Final Result from Last 3 Months Insurance Care Teams Team MemberRelationshipSpecialtyStart DateEnd Date Jose Guadalupe Villafuerte MD [address] [place] [address] PCP - GeneralFamily Slavdirj19/31/24 Joanna Wyman NP Nurse PractitionerFamily Medicine05/12/24
--- OUTSIDE RECORDS SUMMARY | 2025-08-30 12:15 | XMS_ITS | CCD ---
Author Organization [facility] CliniSymi Care Team Providers Care Administrative Assistant Receptionist Name Role Phone UNKNOWN, PHYSICIAN Primary Care Unavailable UNKNOWN, PHYSICIAN Referring Unavailable HERMINIO ROBERTS Admitting Unavailable HERMINIO ROBERTS Attending Unavailable HERMINIO ROBERTS Surgeon Unavailable [place] Procedure Practitioner Unavailab le REYES, WHITFIELD H Consulting Unavailable FAWWAD, WHITFIELD H [...] WEST, DR MARIA ANTONIA Toro Consulting Unavailable ZIEBBETTY, DR SLIME Ashraf Consulting Unavailable [...] WEST, DR MARIA ANTONIA Toro Consulting Unavailable FAWWAD, WHITFIELD H Attending Unavailable SHAIKH Gerson CHAMBERS Admitting Unavailable CAITY, DR SLIME Ashraf Consulting Unavailable SHAIKH Gerson CHAMBERS Primary Care Unavailable SHAIKH Gerson CHAMBERS Consulting Unavailable Reyes PALACIO, Primary Care Provider Jackie PALACIO, Jose Guadalupe Primary Care Provider Zamzam TITLE INSURANCE SALES REPRESENTATIVE, Maisha Unavailable Zachlograciela PALACIO, Tamys Provider Primary Care Provi royce Jackie PALACIO, Jose Guadalupe Primary Care Provider Zamzam TITLE INSURANCE SALES REPRESENTATIVE, Maisha Unavailable Reyes PALACIO, Unavailable Gichico PALACIO, David Henderson Attending Unavailable Gichico PALACIO, David Henderson Attending Unavailable Lalo PALACIO, David Henderson Attending Unavailable JACKIE, JOSE GUADALUPE Attending Unavailable JOSE GUADALUPE MEJIA Attending Unavailable DUNCAN BRADSHAW Attending Unavailable MAISHA WYMAN Referring Unavailvivian e ZAMZAM, MAISHA Attending Unavailvivian e JACKIE, JOSE GUADALUPE Referring Unavailable Marcio PALACIO, Scott Provider Primary Care Provi royce Jackie PALACIO, Jose Guadalupe Primary Care Provider [phone] Shaikh Chambers MD Unavailable Reyes PALACIO, Primary Care Provider Jose Guadalupe Mejia MD Primary Care Provider Jose Guadalupe Mejia MD Primary Care Provider Jose Guadalupe Mejia MD Primary Care Provider Jose Guadalupe Mejia MD Attending Provider Allergies Allergy ClassificationReported Allergen(s)Allergy TypeDate of OnsetReaction(s) FacilityAspirin (1 source)Aspirin; Translations: [ASPIRIN]Drug [id number] [facility] Repository (1 source)Amino AcidsDrug AllergyThe [facility] Rep[facility] (1 source)AspirinDrug AllergyThe [facility] Rep[facility] (20 sources)Aluminum aspirinDrug [id number] Healthcare Medications Current Medications MedicationDrug Class(es)DatesSig (Normalized)Sig (Original)[id number] 200 actuat albuterol 0.09 mg/actuat metered dose inhaler (20 sources)beta2-Adrenergic AgonistStart: 60-39-4077vfkh 1 puff(s) by inhalation every four hours as neededAlbuterol Sulfate 90 mcg/actuation HFA aerosol inhaler Active 2 PUFF INHALATION Every 4 hours as needed August 14, 2025 12:00am Complies with drug therapyStart: 03-15-2024 End: 43-13-8576omxk 2 puff(s) by inhalation every four hours for wheezing albuterol HFA 90 mcg/act inhaler Indications: Suspected chronic obstructive pulmonary disease basedon initial evaluation Inhale 2 puffs every 4 (four) hours if needed for wheezing 8.5 g 3 06/14/2024ctivealendronic acid 35 mg oral tablet (20 sources)BisphosphonateStart: 81-90-5068bcpi 1 tablet by mouth in the morning alendronate (Fosamax) 35 MG tablet Indications: Osteoporosis without current pathological fracture,unspecified osteoporosis type Take 1 tablet (35 mg) by mouth every 7 (seven) days Take in the morning with a full glass of water, on an empty stomach, and do not take anything else by mouth or lie down for the next 30 min. 12 tablet 3 12/20/2024 ActiveStart: 03-30-2024 End: 74-51-5617ppmo 1 tablet by mouth in the morningalendronate (Fosamax) 35 MG tablet Indications: Osteoporosis without current pathological fracture, unspecified osteoporosis type (CMS/HCC) Take 1 tablet (35 mg) by mouth every 7 (seven) days Take inthe morning with a full glass of water, on an empty stomach, and do not take anything else by mouthor lie down for the next 30 min. 12 tablet 09/13/2024 12/12/2024 Activetake 1 tablet by mouth once dailyalendronate (Fosamax) 35 MG tablet 1 tablet 30 minutes before the first food, beverage or medicine of the day with plain water Orally 0 Activetake 1 tablet by mouth every weekalendronate (Fosamax) 70 MG tablet 1 tablet Orally ONCE WEEKLY 0 Active allopurinol 100 mg oral tablet (20 sources)Xanthine Oxidase InhibitorStart: 36-00-1811kiys 1 tablet by mouth twice dailyAllopurinol 100 mg tablet Active 100 MG PO Twice daily 60 3 July 02, 2025 11:00pm Complies with drug therapyStart: 67-85-2720xfga 1 tablet by mouth in the morningallopurinol (Zyloprim) 100 MG tablet Indications: Hyperuricemia Take 1 tablet (100 mg) by mouth in the morning and 1 tablet (100 mg) before bedtime. 180 tablet 01/10/2025 ActiveStart: 04-13-2024 End: 30-91-9854rjcc 1 tablet by mouth in the morningallopurinol (Zyloprim) 100 MG tablet Indications: Hyperuricemia Take 1 tablet (100 mg) by mouth in the morning and 1 tablet (100 mg) before bedtime. 180 tablet 10/10/2024 Active allopurinol (Zyloprim) 100 MG tablet every 12 (twelve) hours. 0 Activeascorbic acid 60 mg / cholecalciferol 0.01 mg / folic acid 0.3 mg / niacin 13.5 mg / riboflavin 1.2mg / sodium fluoride 0.55 mg / thiamine 1.05 mg / vitamin a 0.75 mg / vitamin b12 0.0045 mg / vitamin b6 1.05 mg / vitamin e 6.75 mg chewable tablet (20 sources)Nicotinic Acid, Vitamin A, Vitamin B12, Vitamin D, Vitamin C Pediatric Multivitamins-Fl (MultiVitamin + Fluoride) 0.25 MG chewable tablet Multivitamin ActiveB Complex Vitamins (VITAMIN B COMPLEX 100 IJ) (20 sources)B Complex Vitamins (VITAMIN B COMPLEX 100 IJ) Vitamin B Complex ActiveB Complex Vitamins (VITAMIN B COMPLEX 100 IJ) Vitamin B Complex 0 Active calcium carbonate 1500 mg oral tablet (20 sources)Start: 73-37-6901alcv 1 tablet by mouth twice dailyCalcium Carbonate (Calcium 600) 600 mg calcium (1,500 mg) tablet Active 600 MG PO Twice daily August 14, 2025 12:00am Complies with drug therapycalcium carbonate 1500 (600 Ca) MG tablet every 12 (twelve) hours. Activecarvedilol 25 mg oral tablet (20 sources)alpha-Adrenergic Steph, beta-Adrenergic BlockerStart: 07-03-2025 take 1 tablet by mouth twice daily at mealtimeCarvedilol 25 mg tablet Active 25 MG PO Twice daily 60 3 July 02, 2025 11:00pm must administer with a meal/food Complies with drug therapyStart: 01-10-2025 End: 81-92-4093arki 1 tablet by mouth in the morningcarvedilol (Coreg) 25 MG tablet Indications: Primary hypertension Take 1 tablet (25 mg) by mouth inthe morning and 1 tablet (25 mg) in the evening. Take with meals. 180 tablet 01/10/2025 ActiveStart: 01-12-2024 End: 99-68-1530wszg 1 tablet by mouth in the morningcarvedilol (Coreg) 25 MG tablet Indications: Primary hypertension (CMS/HCC) Take 1 tablet (25 mg) by mouth in the morning and 1 tablet (25 mg) in the evening. Take with meals. 180 tablet 10/10/2024 01/08/2025 Activecarvedilol (Coreg) 25 MG tablet every 12 (twelve) hours. 0 Activecholecalciferol 0.025 mg oral capsule (20 sources)Vitamin DStart: 68-94-8658ccxr 1 capsule by mouth once daily Cholecalciferol (Vitamin D3) 25 mcg (1,000 unit) capsule Active 25 MCG PO Daily August 142:00am Complies with drug therapycholecalciferol (Vitamin D- 3) 25 MCG (1000 UT) capsule 1 capsule 1 (one) time each day at the same time. Activecinnamon bark 500 mg oral capsule (20 sources)Start: 24-86-1059yppw 1 capsule by mouth once dailyCinnamon Bark 500 mg capsule Active 500 MG PO Daily August 14, 2025 12:00am Complies with drug therapycinnamon 500 MG capsule as directed Orally ActiveCranberry (20 sources)Non-Standardized Food Allergenic Extract, Non-Standardized Plant Allergenic ExtractStart: 50-01-2221divf 1 capsule by mouth twice daily at mealtimeCranberry 500 mg capsule Active 500 MG PO Twice daily August 14, 2025 12:00am administer with meals Complies with drug therapyCranberry 500 MG capsule as directed Orally Activeevening primrose oil 1000 mg oral capsule (20 sources)Start: 17-27-2593jezh 1 capsule by mouth once daily as neededEvening Sparta Oil 1,000 mg capsule Active 1000 MG PO Daily as needed August 14, 2025 12:00amgive with meal/snack Complies with drug therapyEvening [place] Oil 1000 MG capsule as directed Orally Activefamotidine 20 mg oral tablet (20 sources)Histamine-2 Receptor AntagonistStart: 92-04-5849iecp 1 tablet by mouth once dailyFamotidine 20 mg tablet Active 20 MG PO Daily August 14, 2025 12:00am Complies with drug therapyfamotidine (Pepcid) 20 MG tablet 1 (one) time each day at the same time. ActiveFish Oils (20 sources)omega-3 (FISH OIL) 300 MG capsule Fish Oil Activeomega-3 (FISH OIL) 300 MG capsule Fish Oil 0 ActiveFluticasone Propion-Salmeterol (20 sources)Corticosteroid, beta2-Adrenergic AgonistStart: 97-63-3968Bvbsqwmonrc Propion-Salmeterol (Advair Diskus) 100-50 mcg/dose blister with device Active 1 INH INHALATION Daily August 14, 2025 12:00am Complies with drug therapy Start: 06-08-1480mkre 1 puff(s) by inhalation once dailyFluticasone-Salmeterol (Advair Diskus) 100-50 MCG/ACT aerosol powder Indications: Suspected chronic obstructive pulmonary disease based on initial evaluation ([facility]) , Mild intermittent asthma without complication ([facility]) Inhale 1 puff Daily 60 each 2 03/06/2025 ActiveStart: 07-13-2024 End: 22-19-9889sxto 1 puff(s) by inhalation once dailyFluticasone-Salmeterol (Advair Diskus) 100-50 MCG/ACT aerosol powder Indications: Suspected chronic obstructive pulmonary disease based on initial evaluation ([facility]) , Mild intermittent asthma without complication ([facility]) Inhale 1 puff Daily 60 each 2 09/13/2024 Activegabapentin 300 mg oral capsule (20 sources)Anti-epileptic AgentStart: 28-06-7782jasj 1 capsule by mouth three times dailyGabapentin 300 mg capsule Active 300 MG PO Three times daily August 14, 2025 12:00am Complies with drug therapyStart: 19-69-5456idlm 1 capsule by mouth in the morning, then take 1 capsule by mouth in the evening, then take 1 capsule by mouth at bedtimegabapentin (Neurontin) 300 MG capsule Take 300 mg by mouth in the morning and 300 mg in the eveningand 300 mg before bedtime. 08/23/2023 ActiveGarlic preparation (20 sources)Non-Standardized Food Allergenic ExtractGarlic 2 MG capsule Garlic ActiveGarlic 2 MG capsule Garlic 0 ActiveGinkgo Biloba (20 sources)Start: 82-37-6345ycop 1 tablet by mouth once dailyGinkgo Biloba 40 mg tablet Active 40 MG PO Daily August 14, 2025 12:00am give with meal/snack Complies with drug therapyGinkgo Biloba 40 MG tablet Ginko Biloba ActiveGinkgo Biloba 40 MG tablet Ginko Biloba 0 Activeglucosamine sulfate 1000 mg oral capsule (20 sources)Start: 33-43-0043ytlf 1 capsule by mouth once dailyGlucosamine Sulfate 1,000 mg capsule Active 1000 MG PO Daily August 14, 2025 12:00am administerwith a meal Complies with drug therapyGlucosamine Sulfate 1000 MG capsule 1 (one) time each day at the same time. Activegrape seed extract 30 mg oral capsule (20 sources)Start: 01-69-2919jyeb 1 capsule by mouth once daily at mealtimeGrape Seed Extract 30 mg capsule Active 30 MG PO Daily August 14, 2025 12:00am give with food (meal/snack) Complies with drug therapyGrape Seed Extract 30 MG capsule Grape Seed Extract ActiveGrape Seed Extract 30 MG capsule Grape Seed Extract 0 ActivehydroCHLOROthiazide 25 mg oral tablet (20 sources)Thiazide DiureticStart: 98-55-7362oxam 1 tablet by mouth once daily Hydrochlorothiazide 25 mg tablet Active 25 MG PO Daily August 14, 2025 12:00am Complies with drug therapyStart: 22-57-9680yyod 1 tablet by mouth in the morninghydroCHLOROthiazide (HYDRODiuril) 25 MG tablet Indications: Primary hypertension Take 1 tablet (25 mg) by mouth in the morning. 90 tablet 1 05/10/2025 ActiveStart: 09-15-2023 End: 40-09-5264mpjs 1 tablet by mouth in the morninghydroCHLOROthiazide (HYDRODiuril) 25 MG tablet Indications: Primary hypertension Take 1 tablet (25 m g) by mouth in the morning. 90 tablet 1 09/13/2024 Activeloratadine 10 mg oral tablet (20 sources)loratadine (Claritin) 10 MG tablet 1 (one) time each day at the same time. Activelosartan potassium 100 mg oral tablet (20 sources)Angiotensin 2 Receptor BlockerStart: 59-83-9843zqxr 1 tablet by mouth once dailyLosartan 100 mg tablet Active 100 MG PO Daily August 14, 2025 12:00am Complies with drug therapyStart: 94-72-1778dlom 1 tablet by mouth once dailylosartan (Cozaar) 100 MG tablet Indications: Primary hypertension Take 1 tablet (100 mg) by mouth Daily 90 tablet 3 05/10/2025 ActiveStart: 12-20-2024 take 1 tablet by mouth once dailylosartan (Cozaar) 100 MG tablet Indications: Primary hypertension Take 1 tablet (100 mg) by mouth Daily 12/20/2024 Active Start: 09-13-2024 End: 15-37-6999sdoz 1 tablet by mouth once dailylosartan (Cozaar) 50 MG tablet Indications: Primary hypertension (CMS/HCC) Take 1 tablet (50 mg) bymouth Daily 30 tablet 2 09/13/2024 09/13/2025 ActiveStart: 09-13-2024 End: 94-93-0593bfby 0.5 tablet by mouth once dailylosartan (Cozaar) 100 MG tablet Indications: Primary hypertension (CMS/HCC) Take 0.5 tablets (50 mg) by mouth Daily 90 tablet 09/13/2024 09/13/2024 DiscontinuedStart: 02-75-5391tajw 1 tablet by mouth once dailylosartan (Cozaar) 100 MG tablet Indications: Primary hypertension (CMS/HCC) Take 1 tablet (100 mg) by mouth Daily 90 tablet 06/27/2024 ActiveStart: 05-20-2024 End: 52-84-9690mski 1 tablet by mouth once dailylosartan (Cozaar) 100 MG tablet Indications: Primary hypertension (CMS/HCC) Take 1 tablet (100 mg) by mouth Daily 90 tablet 08/18/2024 09/13/2024 Discontinued (Dose adjustment)losartan (Cozaar) 100 MG tablet 1 (one) time each day at the same time. 0 Active nabumetone 500 mg oral tablet (20 sources)Nonsteroidal Anti-inflammatory DrugStart: 33-50-3396lkuh 1 tablet by mouth twice dailyNabumetone 500 mg tablet Active 500 MG PO Twice daily 60 3 August 09, 2025 12:00am Complies withdrug therapyStart: 12-13-2024 End: 43-26-0946atfn 1 tablet by mouth twice daily as needed for painnabumetone (Relafen) 500 MG tablet Indications: Chronic left shoulder pain , Chronic pain of left knee Take 1 tablet (500 mg) by mouth 2 (two) times a day as needed for mild pain 60 tablet 3 04/10/2025 ActiveStart: 55-56-0695tqrq 1 tablet by mouth twice daily at bedtimenabumetone (Relafen) 500 MG tablet Indications: Chronic left shoulder pain , Chronic pain of left knee TAKE 1 TABLET BY MOUTH TWICE DAILY (MORNING AND BEFORE BEDTIME) 60 tablet 11/14/2024 ActiveStart: 07-18-2024 End: 85-53-3363bwwd 1 tablet by mouth twice daily at bedtimenabumetone (Relafen) 500 MG tablet Indications: Chronic left shoulder pain , Chronic pain of left kn ee TAKE 1 TABLET BY MOUTH TWICE DAILY (MORNING AND BEFORE BEDTIME) 60 tablet 10/10/2024 11/14/2024 DiscontinuedStart: 04-13-2024 End: 38-45-3637jwkc 1 tablet by mouth in the morningnabumetone (Relafen) 500 MG tablet Indications: Chronic left shoulder pain , Chronic pain of left knee Take 1 tablet (500 mg) by mouth in the morning and 1 tablet (500 mg) before bedtime. 60 tablet 07/14/2024 Discontinued (Reorder)Start: 10-08-2023 End: 06-45-0646dvrs 1 tablet by mouth in the morningnabumetone (Relafen) 500 MG tablet Indications: Chronic left shoulder pain , Chronic pain of left knee Take 1 tablet (500 mg) by mouth in the morning and 1 tablet (500 mg) before bedtime. 60 tablet 01/06/2024 ActiveoxyCODONE hydrochloride 5 mg oral capsule (20 sources)Opioid AgonistStart: 06-29-2025 End: 50-39-0034blgh 1 capsule by mouth twice daily as needed for painOxycodone 5 mg capsule Active 5 MG PO Twice daily as needed for pain 60 30 0 July 27, 2025 Chronic left shoulder pain Pain in left shoulder Other chronic pain Complies with drug therapyStart: 10-29-2024 End: 82-51-5281wztr 1 tablet by mouth onceoxyCODONE (Roxicodone) 5 MG immediate release tablet Indications: Chronic left shoulder pain , Chronic pain of left knee Take 1 tablet (5 mg) by mouth every 12 (twelve) hours if needed for moderate pain 60 tablet 05/29/2025 06/28/2025 ActiveStart: 04-21-2024 End: 04-52-0193cjfy 1 tablet by mouth onceoxyCODONE (Roxicodone) 5 MG immediate release tablet Indications: Chronic left shoulder pain , Chronic pain of left knee Take 1 tablet (5 mg) by mouth every 12 (twelve) hours if needed for moderate pain Do not start before September 25, 2024. 60 tablet 09/25/2024 10/26/2024 Discontinued (Reorder)Start: 10-13-2023 End: 01-40-3506jsyp 1 tablet by mouth onceoxyCODONE (Roxicodone) 5 MG immediate release tablet Indications: Chronic left shoulder pain , Chronic pain of left knee Take 1 tablet (5 mg) by mouth every 12 (twelve) hours if needed for moderate pain 60 tablet 0 11/12/2023 12/12/2023 ActivePARoxetine hydrochloride 20 mg oral tablet (20 sources)Serotonin Reuptake InhibitorStart: 51-60-5101epxt 10 mg by mouth once dailyParoxetine Hcl 20 mg tablet Active 10 MG PO Daily August 14, 2025 12:00am Complies with drug therapyStart: 12-20-2024 End: 12-57-3820zcjm 0.5 tablet by mouth once dailyPARoxetine (Paxil) 20 MG tablet Indications: MDD (major depressive disorder), recurrent episode, mild Take 0.5 tablets (10 mg) by mouth Daily 30 tablet 5 01/23/2025 ActiveStart: 74-85-6540aalz 1 tablet by mouth once dailyPARoxetine (Paxil) 20 MG tablet Indications: Recurrent major depressive disorder, in full remission([facility]/HCC) Take 1 tablet by mouth once daily 90 tablet 1 04/18/2024 ActivePARoxetine (Paxil) 20 MG tablet 1 (one) time each day at the same time. 0 Activesimvastatin 20 mg oral tablet (20 sources)HMG-CoA Reductase InhibitorStart: 90-01-5312qazu 1 tablet by mouth once dailySimvastatin 20 mg tablet Active 20 MG PO Daily August 14, 2025 12:00am Complies with drug therapyStart: 12-07-2023 End: 69-36-9500uyqb 1 tablet by mouth once dailysimvastatin (Zocor) 20 MG tablet Indications: Mixed hyperlipidemia Take 1 tablet (20 mg) by mouth 1(one) time each day at the same time 90 tablet 3 12/13/2024 Activesimvastatin (Zocor) 20 MG tablet 1 (one) time each day at the same time. 0 ActivetraZODone hydrochloride 50 mg oral tablet (5 sources)Serotonin Reuptake InhibitorStart: 84-00-5449ipjb 1 tablet by mouth once daily at bedtimeTrazodone 50 mg tablet Active 50 MG PO Daily at bedtime 30 5 July 05, 2025 11:00pm Complies with drug therapyStart: 10-95-3822qjml 1 tablet by mouth at bedtimetraZODone (Desyrel) 50 MG tablet Indications: Primary insomnia Take 1 tablet (50 mg) by mouth at bedtime 30 tablet 2 05/03/2025 Active Turmeric Curcumin 500 MG capsule (20 sources)Turmeric Curcumin 500 MG capsule as directed Orally ActiveTurmeric Curcumin 500 MG capsule as directed Orally 0 Activeubidecarenone 100 mg oral capsule (1 source)Start: 38-91-1477fevd 10 capsules by mouth once dailyCoenzyme Q10 100 mg capsule Active 100 MG PO Daily August 14, 2025 12:00am Complies with drug therapyubidecarenone 100 mg / vitamin e 5 unt oral capsule (20 sources)coenzyme Q-10 100 MG capsule as directed Orally ActiveVitamin B Complex (Vitamins B Complex) tablet (1 source)Start: 02-15-9342ugrg 1 tablet by mouth once dailyVitamin B Complex (Vitamins B Complex) tablet Active 1 TAB PO Daily August 14, 2025 12:00am Complies with drug therapyvitamin e 180 mg oral capsule (20 sources)Start: 78-79-3788fyof 1 capsule by mouth once dailyVitamin E 268 mg (400 unit) capsule Active 268 MG PO Daily August 14, 2025 12:00am Complies with drug therapyalpha tocopherol (Vitamin E) 400 units capsule 1 capsule 1 (one) time each day at the same time. Active Completed/Discontinued Medications MedicationDrug Class(es)DatesSig (Normalized)Sig (Original)amoxicillin 500 mg oral tablet (8 sources)Penicillin-class AntibacterialStart: 08-16-2024 End: 25-48-8156inpf 4 tablets by mouth once at mealtimeamoxicillin (Amoxil) 500 MG tablet Indications: History of total right hip replacement 4 tabs PO once 30- 60 mins before procedure with food 4 tablet 3 08/16/2024 09/13/2024 Discontinued (Med list cleanup)fluticasone propionate 0.05 mg/actuat metered dose nasal spray (18 sources)CorticosteroidStart: 06-14-2024 End: 96-81-0421lvnl 1-2 spray(s) nasal route once dailyfluticasone (Flonase) 50 MCG/ACT nasal spray Indications: Symptoms of upper respiratory infection (URI) Administer 1-2 sprays into each nostril Daily Shake gently. Before first use, prime pump. Afteruse, clean tip and replace cap. 16 g 2 06/14/2024 09/13/2024 Discontinued (Med list cleanup) Problems Active Problems Problem ClassificationProblemDateDocumented DateEpisodic/ChronicChronic obstructive pulmonary disease and bronchiectasis (20 sources)Suspected respiratory disease; Translations: [Chronic obstructive pulmonary disease, unspecified]Onset: 210643-12-8360SiupwnhCzgirmmy mellitus without complication (5 sources)Type 2 diabetes mellitus without complications; Translations: [TYPE 2 DM WITHOUT COMPLICATIONS]Onset: 15-03-7025BxohwbuUrxgxvec mellitus without complication (20 sources)Prediabetes; Translations: [Prediabetes]Onset: [id number] EpisodicDisorders of lipid metabolism (20 sources)Hyperlipidemia, unspecified; Translations: [Mixed hyperlipidemia] Onset: 793389-50-7709KedpdkwRpszsuoyt hypertension (20 sources)Essential (primary) hypertension; Translations: [Essential hypertension]Onset: 868349-05-6779QexyebkAimn and other crystal arthropathies (4 sources)Gout, unspecified; Translations: [GOUT UNSPECIFIED]Onset: 12-15-2022 ChronicMiscellaneous mental health disorders (12 sources)Primary insomnia; Translations: [Primary insomnia]Onset: 05-03-2025 99-94-0110MoengbyRoin disorders (20 sources)Recurrent major depressive episodes, mild ; Translations: [Major depressive disorder, recurrent, mild]Onset: hronic Osteoarthritis (20 sources)Primary osteoarthritis, left shoulder; Translations: [Primary osteoarthritis, right shoulder]Onset: 12-26-2022 Resolved: 447089-54-8626FzlfuygOinlrzsyrwfq (20 sources)Osteoporosis; Translations: [Age-related osteoporosis without current pathological fracture]Onset: 580945-19-2077FffwkdaAlrdi aftercare (4 sources)Encounter for surgical aftercare following surgery on the circulatory system; Translations: [ENC SURG AFTRCARE FLW SURG CIRC SYS]Onset: 02-09-2023 EpisodicOther aftercare (20 sources)Long-term current use of drug therapy; Translations: [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) drug 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]Onset: 170516-45-4928BpfkhxinDjcqh connective tissue disease (2 sources)History of total replacement of right hip joint; Translations: [Presence of right artificial hip joint]57-63-6683AzfzevuAfqth connective tissue disease (20 sources)Nontraumatic complete rupture of rotator cuff of left shoulder; Translations: [Complete rotator cuff tear or rupture of left shoulder, not specified as traumatic]Onset: 672831-53-3817ZtawydxbKkecm nervous system disorders (20 sources)Chronic pain; Translations: [Other chronic pain]Onset: 04-30-2023 Resolved: 257874-71-7147VilefskJzyfh non-traumatic joint disorders (20 sources)Rotator cuff arthropathy of left shoulder; Translations: [Other specific arthropathies, not elsewhere classified, left shoulder]Onset: 393551-63-1144MmpxnxcDjhla non-traumatic joint disorders (4 sources)Pain in right knee; Translations: [PAIN IN RIGHT KNEE]Onset: 73-75-6783JgwaoyulNgllu non-traumatic joint disorders (1 source)Pain in right hip; Translations: [PAIN IN RIGHT HIP]Onset: 12-26-2022 EpisodicOther non-traumatic joint disorders (1 source)Pain in right shoulder; Translations: [PAIN IN RIGHT SHOULDER]Onset: 27-30-3430LxuzsdejGnbwa non-traumatic joint disorders (1 source)Pain in left shoulder; Translations: [PAIN IN LEFT SHOULDER]Onset: 87-61-1674PlwmldvdVdoqh non-traumatic joint disorders (20 sources)Chronic pain of left upper limb; Translations: [Pain in left shoulder]Onset: 730200-21-4615RheqfyapWywqe nutritional; endocrine; and metabolic disorders (19 sources)Obesity caused by energy imbalance; Translations: [Class 1 obesity due to excess calories with serious comorbidity and body mass index (BMI) of 30.0 to 30.9 in adult]Onset: 278819-13-4949IxiwrpuTidep nutritional; endocrine; and metabolic disorders (2 sources)Hyperuricemia; Translations: [Hyperuricemia without signs of inflammatory arthritis and tophaceous disease]98-69-0459XdssjrryVdaprxjsw; thrombophlebitis and thromboembolism (2 sources)Phlebitis and thrombophlebitis of superficial vessels of right lower extremity; Translations: [Phlebitis and thrombophlebitis of superficial vessels of left lower extremity]Onset: 69-20-7663JibslgiqTmzubwez codes; unclassified (1 source)Localized edema; Translations: [LOCALIZED EDEMA]Onset: 12-26-2022 EpisodicUnclassified (6 sources)Chronic pain of left upper afyk60-03-6314Tkdsuiloavcq (6 sources)Chronic pain of left fktt58-13-3235Qvfusvuh veins of lower extremity (5 sources)Varicose veins of bilateral lower extremities with pain; Translations: [VARICOSE VNS SARITHA LOW EXTREMW/PAIN]Onset: 41-30-0565Zgqisryh Past or Other Problems Problem ClassificationProblemDateDocumented DateEpisodic/ChronicAsthma (20 sources)Mild intermittent asthma; Translations: [Mild intermittent asthma, uncomplicated] Resolved: 111594-21-7228WjelvuzLxtpm circulatory disease (20 sources)Upper respiratory tract finding; Translations: [Other specified symptoms and signs involving the circulatory and respiratory systems]Onset: 06-14-2024 Resolved: 188267-01-7671SstulanzPupwd nervous system disorders (20 sources)Difficulty walking; Translations: [Difficulty in walking, not elsewhere classified]Onset: 04-30-2023 Resolved: 112493-80-8941RzpyjdyYjpxz non-traumatic joint disorders (20 sources)Pain in left knee; Translations: [Pain in joint, lower leg]Onset: 12-26-2022 Resolved: 663970-95-5646EgbdphcsEfido non-traumatic joint disorders (20 sources)Hip pain; Translations: [Pain in unspecified hip]Onset: 01-08-2021 Resolved: 425982-81-6788UfamvmefGluuz non-traumatic joint disorders (18 sources)Pain in unspecified hip; Translations: [Pain in joint, pelvic region and thigh]Onset: 04-30-2023 Resolved: 499348-30-1690UkaddtorUkokltdhm and history of mental health and substance abuse codes (17 sources)Personal history of nicotine dependence; Translations: [Ex-smoker] Onset: 25-47-9691Zizmtmej Results Test NameValueInterpretationReference RangeFacilityCT LUNG SCREENING LOW DOSEon 35-26-4465WK LUNG SCREENING LOW DOSEThis is a summary report. The complete report is available in the patient's medical record. If you cannot access the medical record, please contact the sending organization for a detailed fax or copy. LOW DOSE CT IMAGING OF THE CHEST WITHOUT INTRAVENOUS CONTRAST MEDIUM. HISTORY: Tobacco use. TECHNICAL FACTORS: Without IV contrast axial helical 1.25mm slice thickness low dose images of the chest performed forlung cancer screening. Findings: No suspicious lung nodule, mass or parenchymal consolidation. No significant hilar or mediastinal lymphadenopathy. No pleural or pericardial effusion. IMPRESSION: Lung Rads: LUNGRADS 1 - Negative Follow-up Recommendation: LDCT 1 Year Lung Rads categories: Category 0: Incomplete Additional Imaging Categories 1 & 2: Negative/Benign Continue annual screening Category 3: Probable benign 6 month f/u CT Chest wo Category 3s: Clinically significant or potentially clinically significant findings Category 4A/B Suspicious 4A: [address] Chest wo; PET/CT when > 8mm solid nodule component exists 4B: Chest w/ contrast; PET/CT and/or biopsy Category 5: Highly suspicious for Nodules with strong evidence of malignancy, requiring malignancy. immediate biopsy. Category 6: Incomplete Insufficient Information All CT scans at this facility use dose modulation, iterative reconstruction, and/or weight based dosing when appropriate to reduce radiation dose to as low as reasonably achievable. TRANSCRIBED BY: ELECTRONICALLY SIGNED BY: Percy Hargrove MDNormalNot AvailableMR Cervical spine WO contraston 46-11-4918[place]si[place] [address] Magnetic Resonance Report Signed Patient: BLANCA BUTLER MR#: [id number] : 1960 Acct:[id number] Age/Sex: 65 / F ADM Date: 03/28/25 Loc: MRI Attending Dr: David May M.D. Ordering Physician: David May M.D. Date of Service: 03/28/25 Procedure(s): MR cervical spine wo con Accession Number(s): [id number] cc: David May M.D.; Jose Guadalupe Mejia M.D. The [place] [address] Patient Name: BLANCA BUTLER MRN: [id number]:[id number] date: 1960 Sex: F Assigned Patient Location: MRI Current Patient Location: MRI Accession/Order Number: [id number] Exam Date: 03/28/2025 16:09 Report Date: 03/28/2025 [...] Saucedo M.D. 03/28/2025 4:15 PM Dictation Location: [place] [address] Electronically authenticated by: [id number] Y Date: 03/28/2025 16:15 Dictated By: Bi Saucedo M.D. Signed By: 03/28/251617 DD/ 14 TD/TT: Grain Thresher:DIVINEHRadiologoleg, Radiologist, - 03/28/2025 [place] [address] Magnetic Resonance Report Signed Patient: BLANCA BUTLER MR#: [id number] : 1960 Acct:[id number] Age/Sex: 65 / F ADM Date: 03/28/25 Loc: MRI Attending Dr: David May M.D. Ordering Physician: David May M.D. Date of Service: 03/28/25 Procedure(s): MR cervical spine wo con Accession Number(s): [id number] cc: David May M.D.; Jose Guadalupe Mejia M.D. [facility] [place] [address] Patient Name: BLANCA BUTLER MRN: [facility]:[id number] date: 1960 Sex: F Assigned Patient Location: MRI Current Patient Location: MRI Accession/Order Number: [id number] Exam Date: 03/28/2025 16:09 Report Date: 03/28/2025 [...] Saucedo M.D. 03/28/2025 4:15 PM Dictation Location: [place] [address] Electronically authenticated by: [id number] Y Date: 03/28/2025 16:15 Dictated By: Bi Saucedo M.D. Signed By: 03/28/25 1618 DD/ 14 TD/TT: Grain Thresher: SCOTT HealthcareRadiology Study observation (narrative)[facility] Cervical spine WO contrastOrdered By: Radiologist Radiology on 18-88-8712VNRLFreeman Cancer Institute Work Phone: aLL CBC WITH AUTO DIFFon 19-96-2637WBGIVJOCX ABSOLUTE RNSC9XSSJ HealthcareBasophils/100 WBC (Bld)0.5 %0.2 - 2.0 %[facility] Eosinophils/100 WBC (Bld)1.6 %0.9 - 7.0 %[facility] Cancer InstituteErythrocyte distribution width (RBC) [Ratio]13.2 %11.0 - 15.0 %[facility] InstituteHematocrit (Bld) [Volume fraction]35.2 %Low36.0 - 48.0 %[facility] InstituteHemoglobin (Bld) [Mass/Vol]11.9 g/dLLow12.0 - 16.0 g/dLFreeman Cancer InstituteIMMATURE GRANULOCYTES ABS AUTO0.03NOSt. Lukes Des Peres HospitalImmature granulocytes/100 WBC (Bld)0.3 %0.0 - 0.5 %[facility] Interpretation and review of laboratory resultsAbnormalFreeman Cancer Institute LYMPHOCYTES ABSOLUTE AUTO1.8NOSt. Lukes Des Peres HospitalLymphocytes/100 WBC (Bld)21 %20.5 - 60.0 %[facility] HospitalH (RBC) [Entitic mass]32.9 pg26.7 - 34.0 pgBarnes-Jewish Saint Peters HospitalHC (RBC) [Mass/Vol]33.8 g/dL29.9 - 35.2 g/dLBarnes-Jewish Saint Peters HospitalV (RBC) [Entitic vol]97.2 fL81.0 - 99.0 fLFreeman Cancer InstituteMONOCYTES ABSOLUTE AUTO0.7NOTX HealthcareMonocytes/100 WBC (Bld)7.6 %1.7 - 12.0 %[facility] InstituteNEUTROPHILS ABSOLUTE FRMT4LLEP HealthcareNeutrophils/100 WBC (Bld)69 %43.0 - 75.0 %[facility] Cancer InstitutePlatelet mean volume (Bld) [Entitic vol]10.3 fL9.5 - 13.5 fLFreeman Cancer InstituteTBH EO #0.1NOMS HealthcareTB FLN289EMOQ [facility] NorthTB RBC3.62LowNOMS [facility] NorthTB WBC8.7NOTX HealthcareCLINISYNCNOMS HealthcareXR KNEE STANDING BIon 83-52-9202Ggi[address] [address] XRay Report Signed Patient: BLANCA BUTLER MR#: [id number] : 1960 Acct:[id number] Age/Sex: 64 / F ADM Date: 07/29/24 Loc: [facility] Attending Dr: MAISHA WYMAN Ordering Physician: MAISHA WYMAN Date of Service: 07/29/24 Procedure(s): XR knee standing BI Accession Number(s): [id number] cc: MAISHA WYMAN [place] [id number] Patient Name: BLANCA BUTLER MRN: [id number] date: 1960 Sex: F Assigned Patient Location: [facility] Current Patient Location: Accession/Order Number: [id number] Exam Date: 07/29/2024 14:10 Report Date: 08/01/2024 [...] marked narrowing of the medial compartment with qerd-zo-drvf articulation. Large periarticular degenerative osteophytes involving the medial and lateral compartments. SOFT TISSUES: Large flocculent calcification along superior medial margin of the knee joint; heterotopic bone formation versus loose body within the joint capsule. OTHER: Negative. XR/XR knee standing BI IMPRESSION: RIGHT CONCLUSION: Marked degenerative joint disease. LEFT CONCLUSION: Marked degenerative joint disease. Electronically authenticated by: SLIME CAROLINA Date: 08/01/2024 06:46 Dictated By: Slime Carolina M.D. Signed By: 08/01/2449 DD/ TD/TT: Grain Thresher:TBHRadiology, Radiologist, - 08/01/[address] [place] [address] XRay Report Signed Patient: BLANCA BUTLER MR#: [id number] : 1960 Acct:[id number] Age/Sex: 64 / F ADM Date: 07/29/24 Loc: [facility] Attending Dr: MAISHA WYMAN Ordering Physician: MAISHA WYMAN Date of Service: 07/29/24 Procedure(s): XR knee standing BI Accession Number(s): [id number] cc: MAISHA WYMAN [place] [id number] Patient Name: BLANCA BUTLER MRN: [id number] date: 1960 Sex: F Assigned Patient Location: [facility] Current Patient Location: Accession/Order Number: [id number] Exam Date: 07/29/2024 14:10 Report Date: 08/01/2024 [...] marked narrowing of the medial compartment with mdel-te-fidg articulation. Large periarticular degenerative osteophytes involving the medial and lateral compartments. SOFT TISSUES: Large flocculent calcification along superior medial margin of the knee joint; heterotopic bone formation versus loose body within the joint capsule. OTHER: Negative. XR/XR knee standing BI IMPRESSION: RIGHT CONCLUSION: Marked degenerative joint disease. LEFT CONCLUSION: Marked degenerative joint disease. Electronically authenticated by: SLIME CAROLINA Date: 08/01/2024 06:46 Dictated By: Slime Carolina M.D. Signed By: 08/01/2449 DD/ 5 TD/TT: Grain Thresher: [facility] HOSPITALLashanda HealthcareRadiology Study observation (narrative)NOMS HealthcareXR KNEE STANDING BIOrdered By: Radiologist Radiology on 23-42-6770DCRZ Healthcare Work Phone: RT PULMONARY FUNCTION TESTon 67-92-2619H[address] [address] Respiratory Report Signed Patient: BLANCA BUTLER MR#: [id number] : 1960 Acct:[id number] Age/Sex: 64 / F ADM Date: 07/12/24 Loc: CARD Attending Dr: MAISHA WYMAN Ordering Physician: MAISHA WYMAN Date of Service: 07/12/24 Procedure(s): RT pulmonary function test Accession Number(s): [id number] cc: [facility] Test Date: 2024-07-12 Pat Name: BLANCA BUTLER Department: Room: - Gender: Female Cook Chef: Yanelis Heller RRT : 1960 Requested By: [id number] Order Number: [id number] Reading MD: Justin Marin Interpretive Statements Pulmonary [...] Dictated By: Justin Marin D.O. Signed By: 07/13/2434 07/13/2434 DD/ 1300 TD/TT: Grain Thresher:DIVINEHRadiology, Radiologist, - 07/13/2024 The [place] [id number] Respiratory Report Signed Patient: BLANCA BUTLER MR#: [id number] : 1960 Acct:[id number] Age/Sex: 64 / F ADM Date: 07/12/24 Loc: CARD Attending Dr: MAISHA WYMAN Ordering Physician: MAISHA WYMAN Date of Service: 07/12/24 Procedure(s): RT pulmonary function test Accession Number(s): [id number] cc: [facility] Test Date: 2024-07-12 Pat Name: BLANCA BUTLER Department: Room: - Gender: Female Cook Chef: Yanelis Heller RRT : 1960 Requested By: [id number] Order Number: [id number] Reading MD: Justin Marin Interpretive Statements Pulmonary [...] Dictated By: Justin Marin D.O. Signed By: 07/13/2434 07/13/24633 DD/ 1300 TD/TT: Grain Thresher: SCOTT Barragan PULMONARY FUNCTION TESTOrdered By: Radiologist Radiology on 67-38-7788YAITFreeman Cancer Institute Work Phone: aLL HEMOGLOBINon 94-29-1723Wjmlosxhxr (Bld) [Mass/Vol] 11.3 g/dLLow12.0 - 16.0 g/dLSHRINERS HOSPITALS FOR CHILDREN HealthcareInterpretation and review of laboratory resultsAbnormalNOTX HealthcareCLINISYNCNOMS [facility] NorthRT PULMONARY FUNCTION TESTon 80-78-6363Ltlsafzkf Study observation (narrative)[facility] CT SHOULDER LT WO CONon 59-72-9984BqpMay[place] [address] CT Scan Report Signed Patient: BLANCA BUTLER MR#: [id number] : 1960 Acct:[id number] Age/Sex: 64 / F ADM Date: 03/25/24 Loc: CT Attending Dr: Fox Pascual M.D. Ordering Physician: Fox Pascual M.D. Date of Service: 03/25/24 Procedure(s): CT shoulder LT wo con Accession Number(s): [id number] cc: Shaikh Dior Chambers [place] [address] Patient Name: BLANCA BUTLER MRN: [facility]:[id number] date: 1960 Sex: F Assigned Patient Location: CT Current Patient Location: Accession/Order Number: [id number] Exam Date: 03/25/2024 13:00 Report Date: 03/28/2024 [...] joint osteoarthritis Electronically authenticated by: MARIA ANTONIA PATEL Date: 03/28/2024 08:14 Dictated By: Maria Antonia Patel M.D. Signed By: 03/28/24816 DD/ 3 TD/TT: Grain Thresher:TBHRadiology, Radiologist, MD - 03/28/2024 [place] [address] CT Scan Report Signed Patient: BLANCA BUTLER MR#: [id number] : 1960 Acct:[id number] Age/Sex: 64 / F ADM Date: 03/25/24 Loc: CT Attending Dr: Fox Pascual M.D. Ordering Physician: Fox Pascual M.D. Date of Service: 03/25/24 Procedure(s): CT shoulder LT wo con Accession Number(s): [id number] cc: Shaikh Dior Chambers The [place] [id number] Patient Name: BLANCA BUTLER MRN: [id number] date: 1960 Sex: F Assigned Patient Location: CT Current Patient Location: Accession/Order Number: [id number] Exam Date: 03/25/2024 13:00 Report Date: 03/28/2024 [...] joint osteoarthritis Electronically authenticated by: MARIA ANTONIA PATEL Date: 03/28/2024 08:14 Dictated By: Maria Antonia Patel M.D. Signed By: 03/28/24816 DD/ 3 TD/TT: Grain Thresher: SCOTT HealthcareRadiology Study observation (narrative)[facility] HealthcareCT SHOULDER LT WO CONOrdered By: Radiologist Radiology on 86-20-5608DCYG Healthcare Work Phone: ecg 12-LEADon 13-74-6315Kgr[address] [address] Electrocardiograph Report Signed Patient: BLANCA BUTLER MR#: [id number] : 1960 Acct:[id number] Age/Sex: 64 / F ADM Date: 03/15/24 Loc: CARD Attending Dr: Shaikh Reyes Rader Ordering Physician: Shaikh Dior Chambers Date of Service: 03/15/24 Procedure(s): ECG 12 lead Accession Number(s): [id number] cc: [facility] Test Date: 2024-03-15 Pat Name: BLANCA BUTLER Department: Room: - Gender: Female Cook Chef: : 1960 Requested By: SHAIKH REYES Order Number: [id number] Reading MD: ANTONI MOSQUEDA Measurements Intervals [place] Rate: 62 P: 61 WY: 176 QRS: 57 QRSD: 106 T: 48 QT: 391 QTc: 398 Interpretive Statements SINUS RHYTHM No previous ECG available for comparison Electronically Signed On 03-15-2024 21:11:56 EDT by ANTONI MOSQUEDA Dictated By: Antoni Mosqueda D.O. Signed By: 03/15/24211103/15/242111 DD/ 28 TD/TT: Grain Thresher:DIVINEHRadiology, Radiologist, - 03/16/2024 [place] [address] Electrocardiograph Report Signed Patient: BLANCA BUTLER MR#: [id number] : 1960 Acct:[id number] Age/Sex: 64 / F ADM Date: 03/15/24 Loc: CARD Attending Dr: Shaikh Reyes Rader Ordering Physician: Shaikh Dior Chambers Date of Service: 03/15/24 Procedure(s): ECG 12 lead Accession Number(s): [id number] cc: [facility] Test Date: 2024-03-15 Pat Name: BLANCA BUTLER Department: Room: - Gender: Female Cook Chef: : 1960 Requested By: SHAIKH REYES Order Number: [id number] Reading MD: ANTONI MOSQUEDA Measurements Intervals [place] Rate: 62 P: 61 WY: 176 QRS: 57 QRSD: 106 T: 48 QT: 391 QTc: 398 Interpretive Statements SINUS RHYTHM No previous ECG available for comparison Electronically Signed On 03-15-2024 21:11:56 EDT by ANTONI MOSQUEDA Dictated By: Antoni Mosqueda D.O. Signed By: 03/15/24211103/15/242111 DD/ 28 TD/TT: Grain Thresher: NOMS HealthcareRadiology Study observation (narrative)[facility] HealthcareECG 12-LEAD Ordered By: Radiologist Radiology on 45-38-1353CXNH Fly Fishing Hunter Work Phone: MM TOMOSYNTHESIS SCREENING BIon 67-56-0815PfgMay[place] [address] Mammography Report Signed Patient: BLANCA BUTLER MR#: [id number] : 1960 Acct:[id number] Age/Sex: 63 / F ADM Date: 01/07/24 Loc: MAMMO Attending Dr: Shaikh Reyes Rader Ordering Physician: Shaikh Dior Chambers Results: Date of Service: 01/07/24 Follow Up: Procedure(s): MM tomosynthesis screening BI Accession Number(s): [id number] cc: Shaikh Dior Chambers Patient Name: BLANCA BUTLER MR#: [id number] : 1960 Exam Date: 01/07/2024 Ordering Doctor: Shaikh Joan Chambers . RADIOLOGY REPORT PROCEDURE: MM TOMOSYNTHESIS SCREENING BI [...] breast cancer at age 48. LOCATION: [facility] BREAST COMPOSITION: Scattered areas fibroglandular [...] PALPABLE LUMP SHOULD BE BIOPSIED. Dictated by: Slime Carolina M.D. on 01/08/2024 at 11:49 Approved by: Slime Carolina M.D. on 01/08/2024 at 11:52 Dictated By: Slime Carolina M.D. Signed By: 01/08/24 1153 DD/ 1152 TD/TT: Grain Thresher:TBHRadiology, Radiologist, - 01/08/2024 [place] [address] Mammography Report Signed Patient: BLANCA BUTLER MR#: [id number] : 1960 Acct:[id number] Age/Sex: 63 / F ADM Date: 01/07/24 Loc: MAMMO Attending Dr: Shaikh Reyes Rader Ordering Physician: Shaikh Dior Chambers Results: Date of Service: 01/07/24 Follow Up: Procedure(s): MM tomosynthesis screening BI Accession Number(s): [id number] cc: Shaikh Dior Chambers Patient Name: BLANCA BUTELR MR#: [id number] : 1960 Exam Date: 01/07/2024 Ordering Doctor: Shaikh Joan Kim RADIOLOGY REPORT PROCEDURE: MM TOMOSYNTHESIS SCREENING BI COMPARISON: MG MAMM SARITHA SCRN W CAD DIG, 08/25/2013. MG MAMM SARITHA SCRN W CAD DIG, 08/24/2008. MG MAMM ASRITHA DIAG W CAD DIG, 10/01/2007. INDICATIONS: screening Calculator Name NCI Breast Cancer Risk Assessment Tool 5 Year Breast Cancer Risk 3.10% Lifetime Breast Cancer Risk 11.40% Personal Breast Cancer No Personal Ovarian Cancer No Treatments None Family Cancers Mother with breast cancer at age 50. LOCATION: [facility] BREAST COMPOSITION: Scattered areas fibroglandular [...] PALPABLE LUMP SHOULD BE BIOPSIED. Dictated by: Slime Carolina M.D. on 01/08/2024 at 11:49 Approved by: Slime Carolina M.D. on 01/08/2024 at 11:52 Dictated By: Slime Carolina M.D. Signed By: 01/08/24 1153 DD/ 1152 TD/TT: Grain Thresher: SCOTT HealthcareRadiology Study observation (narrative)[facility] TOMOSYNTHESIS SCREENING BIOrdered By: Radiologist Radiology on 45-46-5902JHFA Fly Fishing Hunter Work Phone: VC CONSULT FOLLOWUPon 83-92-0564RY CONSULT FOLLOWUP Patient: BLANCA BUTLER Exam Date: 03/03/2023 : 1960 Gender:F Ordering : DR MARIA ANTONIA PATEL M.D. Admission #: [id number] Family : Order #: [id number] CLICK HERE TO VIEW EXAM RADIOLOGY REPORT [...] exam and consultation Dictated by: Maria Antonia Patel MD on 03/03/2023 at 13:44 Approved by: Maria Antonia Patel MD on 03/03/2023 at 13:46[facility] SouthwoodsVC EXT VENOUS RT LIMITEDon 01-01-8685DQ EXT VENOUS RT LIMITEDPatient: BLANCA BUTLER. Exam Date: 03/03/2023 : 1960 Gender:F Ordering : DR MARIA ANTONIA PATEL M.D. Admission #: [id number] Family : Order #: [id number] CLICK HERE TO VIEW EXAM RADIOLOGY REPORT [...] the saphenofemoral junction Dictated by: Maria Antonia Patel MD on 03/03/2023 at 13:09 Approved by: Maria Antonia Patel MD on 03/03/2023 at 13:10[facility] SouthwoodsVC ENDOVENOUS ABL 1ST V RTon 60-27-1230OQ ENDOVENOUS ABL 1ST V RTPatient: BLANCA BUTLER. Exam Date: 02/25/2023 : 1960 Gender:F Ordering : DR MARIA ANTONIA PATEL M.D. Admission #: [id number] Family : Order #: [id number] CLICK HERE TO VIEW EXAM RADIOLOGY REPORT PROCEDURE: VEIN CENTER ENDOVENOUS ABLATION FIRST VEIN RIGHT COMPARISON: VC VENOUS REFLUX SARITHA LMT, 01/08/2023. INDICATIONS: Pain co-occurrent and due to varicose veins of bilateral legs I83.813 OPERATIVE REPORT: The risks and benefits of the procedure had been previously discussed, and were rediscussed at length. Informed written consent was obtained by and Darnell Ian assisted. Time out procedure was performed. The [...] right great saphenous vein. Dictated by: Slime Carolina M.D. on 02/25/2023 at 14:59 Approved by: Slime Carolina M.D. on 02/25/2023 at 15:01[facility] SouthwoodsVC CONSULT FOLLOWUPon 86-30-1257KQ CONSULT FOLLOWUPPatient: BLANCA BUTLER Exam Date: 02/09/2023 : 1960 Gender:F Ordering : DR MARIA ANTONIA PATEL M.D. Admission #: [id number] Family : Order #: [id number] CLICK HERE TO VIEW EXAM RADIOLOGY REPORT [...] physical exam and consultation Dictated by: Slime Carolina M.D. on 02/09/2023 at 11:35 Approved by: Slime Carolina M.D. on 02/09/2023 at 11:43[facility] SouthwoodsVC EXT VENOUS LT LIMITEDon 95-49-0854DB EXT VENOUS LT LIMITEDPatient: BLANCA BUTLER Exam Date: 02/09/2023 : 1960 Gender:F Ordering : DR MARIA ANTONIA PATEL M.D. Admission #: [id number] Family : Order #: [id number] CLICK HERE TO VIEW EXAM RADIOLOGY REPORT [...] left great saphenous vein. Dictated by: Slime Carolina M.D. on 02/09/2023 at 11:34 Approved by: Slime Carolina M.D. on 02/09/2023 at 11:35[facility] SouthwoodsVC ENDOVENOUS ABL 1ST V LTon 60-91-7943CX ENDOVENOUS ABL 1ST V LT Patient: BLANCA BUTLER Exam Date: 02/02/2023 : 1960 Gender:F Ordering : DR MARIA ANTONIA PATEL M.D. Admission #: [id number] Family : Order #: [id number] CLICK HERE TO VIEW EXAM RADIOLOGY REPORT [...] left great saphenous vein. Dictated by: Slime Carolina M.D. on 02/02/2023 at 14:15 Approved by: Slime Carolina M.D. on 02/02/2023 at 14:17[facility] SouthwoodsVC COMP CONSULTATIONon 15-01-4238PG COMP CONSULTATIONPatient: BLANCA BUTLER Exam Date: 01/08/2023 : 1960 Gender:F Ordering : DR MARIA ANTONIA PATEL M.D. Admission #: [id number] Family : Order #: [id number] CLICK HERE TO VIEW EXAM RADIOLOGY REPORT [...] saphenous, mild to moderate right small saphenous mpgi-xo-xvugmepu left anterior accessory saphenous vein venous insufficiency [...] exam and consultation Dictated by: Maria Antonia Patel MD on 01/08/2023 at 14:56 Approved by: Maria Antonia Patel MD on 01/08/2023 at 15:14[facility] SouthwoodsVC VENOUS REFLUX SARITHA LMTon 47-28-4524CK VENOUS REFLUX SARITHA LMTPatient: BLANCA BUTLER Exam Date: 01/08/2023 : 1960 Gender:F Ordering : DR MARIA ANTONIA PATEL M.D. Admission #: [id number] Family : Order #: [id number] CLICK HERE TO VIEW EXAM RADIOLOGY REPORT [...] chronic thrombus visualized Compressibility: Normal Flow: Normal Pipe Racker: Dist/med calf 3.7 mm with 2.4s reflux. [...] Bilateral incompetent varicose veins 5. Left incompetent hot tamale man veins 6. Left suprapatellar fluid collection likely joint effusion and popliteal lesion likely a cyst Dictated by: Maria Antonia Patel MD on 01/08/2023 at 13:50 Approved by: Maria Antonia Patel MD on 01/08/2023 at 13:52[facility] SouthwoodsXR KNEE SARITHA 4V or >on 29-05-0451HN KNEE SARITHA 4V or >EXAMINATION: XR KNEE SARITHA 4V or > HISTORY: [...] acute bone abnormality. Electronically authenticated by: SLIME CAROLINA Date: 2022-12-17 16:24[facility] SouthwoodsXR SHOULDER SARITHA 2V or >on 78-82-9558NF SHOULDER SARITHA 2V or > EXAMINATION: XR [...] narrowing of the glenohumeral joints with likely anoj-dw-yvja contact. Degenerative osteophyte along the inferior articular margin of the humeral head and glenoid. Suspected narrowing of the acromial-humeral interval. SOFT TISSUES: No visible soft tissue swelling. OTHER: Negative. IMPRESSION: RIGHT CONCLUSION: Marked degenerative joint disease and suspected disruption of the superior rotator cuff. LEFT CONCLUSION: Marked degenerative joint disease, and likely rotator cuff injury or disruption. Electronically authenticated by: SLIME CAROLINA Date: 2022-12-17 16:32[facility] AUTO DIFFon 27-62-9140VWHL #0.1 103/ulNormal0.0-0.1[facility] County Medical CenterComment on above:Performed By: #### CBC ####[facility] B[address] [place], [place] [address]Dr.Sarah ChangBasophils/100 WBC (Bld)0.8 %Normal0.2-2.0[facility] Medical CenterComment on above:Performed By: #### CBC ####[facility] Xalkzenoqw[address] [place], [place] [address]Dr.Yilan ChangEO #0.2 103/ulNormal0.0-0.7The [facility]c Medical CenterComment on above:Performed By: #### CBC ####[facility] R[address] [place], [place] [address]Dr.Yilan ChangEosinophils/100 WBC (Bld)2.3 %Normal 0.9-7.0The [facility] Medical CenterComment on above:Performed By: #### CBC ####[facility] Qvtiageyof[address] [place], [place] [address]Dr.Yilan Napoles Erythrocyte distribution width (RBC) [Ratio]13.2 %Fkodsi41.0-15.0The [facility] Medical CenterComment on above:Performed By: #### CBC ####[facility] Ojldocoqop[address] [place], [place] [address]Dr.Sarah NapolesHematocrit (Bld) [Volume fraction]34.3 %Critically low36.0-48.0The [facility] CenterComment on above:Performed By: #### CBC ####[facility] Lcmturalhl[address] [place], [place] [address]Dr.Sraah DonyHemoglobin (Bld) [Mass/Vol]11.5 g/dL Critically low12.0-16.0The [facility] CenterComment on above:Performed By: #### CBC ####[facility] Xxqwujjitn[address] [place], [place] [address]Dr. Sarah ChangIG #0.02 10e3/ulNormal0.00-0.03The [facility] CenterComment on above: Performed By: #### CBC ####[facility] Syysmyqvle7[address] [place], [place] [address]Dr.Sarah NapolesIG %0.2 %Normal0.0-0.5The [facility] CenterComment on above:Performed By: #### CBC ####[facility] Mctjfaldzg13[address] [place], [place] [address]Dr.Sarah NapolesLYMPH #1.8 103/ulNormal1.2-3.8The [facility] CenterComment on above:Performed By: #### CBC ####[facility] Udqrxnftnd[address] [place], [place] [address]Dr. Sarah NapolesLymphocytes/100 WBC (Bld)19.8 %Critically low20.5-60.0The Start HospitalComment on above:Performed By: #### CBC ####[facility] Tdbqfcnlep[address] [place], [place] [address]Dr.Sarah NapolesMANUAL DIFF REQ NONormalThe [facility] Medical CenterComment on above:Performed By: #### CBC ####[facility] Ivkexzmmxt[address] [place], [place] [address]Dr. Sarah [facility]olesMON[facility] (RBC) [Entitic mass]32.2 lkFmyqfo60.7-34.0The [facility] Comment on above:Performed By: #### CBC ####[facility] [address] [place] [address]Dr.Sarah NapolesHC (RBC) [Mass/Vol]33.5 g/dL Bjpnhe16.9-35.2The [facility] CenterComment on above:Performed By: #### CBC ####[facility] [address] [place] [address]Dr. Sarah NapolesV (RBC) [Entitic vol]96.1 eRXduack07.0-99.0The [facility] Comment on above:Performed By: #### CBC ####[facility] Wdwwsdyogd42[address] [place], [place] [address]Dr.Sarah NapolesMONO #0.8 103/ulNormal0.3-0.8 The [facility] CenterComment on above:Performed By: #### CBC ####[facility] Xvcqglwvgn99[address] [place], [place] [address]Dr.Sarah Napoles Monocytes/100 WBC (Bld)9.5 %Normal1.7-12.0The [facility] CenterComment on above: Performed By: #### CBC ####[facility] Njhjzayutj49[address] [place], [place] [address]Dr.Sarah NapolesNEUT #6.0 103/ulNormal1.4-6.5The [facility] CenterComment on above:Performed By: #### CBC ####[facility] Sqdbelfpxa90[address] [place], [place] [address]Dr.Sarah NapolesNeutrophils/100 WBC (Bld)67.4 %Kkaiwa85.0-75.0The [facility] CenterComment on above:Performed By: #### CBC ####[facility] Wgpdfqmodw8566[address] [place], [place] [address]Dr.Sarah NapolesPlatelet mean volume (Bld) [Entitic vol]10.1 fLNormal9.5-13.5 The [facility] CenterComment on above:Performed By: #### CBC ####[facility] [address]ksgsqej[address] [place] [address]Dr.Sarah BwertSRT795 103/hsCmiuvy561-659Ssk [facility] CenterComre[facility] [place] on above:Performed By: #### CBC ####[facility] [address]odqmsga[address] [place] [address]Dr. Sarah NapolesRBC3.57 106/ulCritically low4.20-5.40The [facility] CenterComment on above:Performed By: #### CBC ####[facility] Gnvzefntto[address] [place], [place] [address]Dr.Sarah NapolesWBC8.8 103/ulNormal4.0-11.0The [facility] CenterComrehabilitation [facility] [place] on above:Performed By: #### CBC ####[facility] Wjxhwwgqju29[address] [place], [place] [address]Dr.Charlinecassie DonyGLYCOHEMOGLOBIN A1Con 56-54-0326AJS RECOMMENDATIONSEE [facility]Com[facility] on above:Result Comment: ADA RECOMMENDED LIMIT 4.0 - 6.0 ADA THERAPEUTIC TARGET < 7.0 ACTION SUGGESTED > 7.0Performed By: #### A1C ####[facility] Lctwbttouo[address] [place], [place] [address]Dr.Sarah NapolesGlucose [Mass/Vol]105 mg/dLUC Medical Center on above:Performed By: #### A1C ####[facility] Ilzqjdfkef54[address] [place], [place] [address]Dr.Sarah NapolesHbA1c (Bld) [Mass fraction]5.3 %Normal4.5-6.2[facility] on above:Performed By: #### A1C ####[facility] Ugezjsqbwp[address] [place], [place] [address]Dr.Charlinecassie DonyLIPID PROFILEon 12-17-3032VUNC-HDL RATIO NORMSEE [facility] on above:Result Comment: 3.3 - 4.4 LOW RISK 4.4 - 7.1 AVERAGE RISK 7.1 - 11.0 MODERATE RISK >11.0 HIGH RISKPerformed By: #### LIPID, CMP, URIC ####[facility] [address]puig[address] [place] [address]Dr. Yilan Napoles Cholesterol [Mass/Vol]160 mg/dLNormal<=200The [facility] on above: Performed By: #### LIPID, CMP, URIC ####[facility] [address]xounf[address] [place] [address]Dr. Yilan ChangCholesterol in HDL [Mass/Vol]62 mg/dLCritically gexy88-81Onn [facility] CenterComment on above:Performed By: #### LIPID, CMP, URIC ####[facility] Hdyprjcvea[address] [place], [place] [address]Dr. Yilan ChangCholesterol in LDL [Mass/Vol]75.2 mg/dL NormalThe [facility] CenterComrehabilitation [facility] [place] on above:Performed By: #### LIPID, CMP, URIC ####[facility] Gadgliqhmx4232[address] [place], [place] [address]Dr. Yilan ChangCholesterol.total/Cholesterol in HDL [Mass ratio]2.6 {ratio}NormalKettering Health Behavioral Medical Center on above:Performed By: #### LIPID, CMP, URIC ####[facility] Uawagvwrof[address] [place], [place] [address]Dr. Yilan ChangHDL NORMAL> or = 60 mg/dl - LOW CARDIOVASCULAR RISK <40 mg/dl - HIGH CARDIOVASCULAR RISKUC Medical Center on above:Performed By: #### LIPID, CMP, URIC ####[facility] Zucddezhmr[address] [place], [place] [address]Dr. Yilan ChangLDL CALC NORMALSEE BELOWThe Surgical Hospital at SouthwoodsComment on above:Result Comment: <100 mg/dl OPTIMAL 100 - 129 mg/dl NEAR OR ABOVE OPTIMAL 130 - 159 mg/dl BORDERLINE HIGH 160 - 189 mg/dl HIGH >190 mg/dl VERY HIGHPerformed By: #### LIPID, CMP, URIC ####[facility] Vgodonnlhx94[address] [place], [place] [address]Dr. Yilan ChangTriglyceride [Mass/Vol]114 mg/dLNormal<=150The Start HospitalComment on above:Performed By: #### LIPID, CMP, URIC ####[facility] X[address] [place] [address], [place] [address]OiDr. Sarah NapolesVLDL CALC22.8 mg/dLNormalThe [facility] CenterComment on above:Performed By: #### LIPID, CMP, URIC ####[facility] [address]ng[address] [place] [address]Dr. Sarah NapolesPROF 14(COMP METB)on 80-66-8253Clypubn [Mass/Vol]4.3 g/dLNormal3.4-5.0The [facility] CenterComment on above:Performed By: #### LIPID, CMP, URIC #### [facility] [address] [address] [address] Sarah NapolesAlbumin/Globulin [Mass ratio]1.3 {ratio}NormalThe [facility] CenterComment on above:Performed By: #### LIPID, CMP, URIC #### [facility] [address] [address] [address] Sarah Deleon [Catalytic activity/Vol]71 U/PJiebso51-615Ldy [facility] CenterComment on above:Performed By: #### LIPID, CMP, URIC #### [facility] [address] [address] [address] Sarah Rodrigues [Catalytic activity/Vol]25 U/VEnqjqt02-33Beb [facility] CenterComment on above:Performed By: #### LIPID, CMP, URIC #### [facility] [address] [address] [address] Sarah Mcdaniels gap [Moles/Vol]11.8 mmol/LNormalThe [facility] Comment on above:Performed By: #### LIPID, CMP, URIC #### [facility] [address] [address] [address] Sarah Goodwin [Catalytic activity/Vol]22 U/WFlwxjv22-20Qub [facility] CenterComment on above:Performed By: #### LIPID, CMP, URIC #### [facility] [address] [address] [address] Sarah NapolesBilirubin [Mass/Vol]0.3 mg/dLNormal0.2-1.0The [facility] Comment on above:Performed By: #### LIPID, CMP, URIC #### [facility] [address] [place] [address] Dr. Sarah NapolesCalcium [Mass/Vol]9.8 mg/dLNormal8.5-10.1The [facility] Comment on above:Performed By: #### LIPID, CMP, URIC #### [facility] [address] [place] [address] Dr. Sarah NapolesChloride [Moles/Vol]101 mmol/YUadxcr97-415Gzv [facility] Comment on above:Performed By: #### LIPID, CMP, URIC #### [facility] [address] [place] [address] Dr. Sarah NapolesCO2 [Moles/Vol]29.5 mmol/TWvldrp05.0-32.0The [facility] Comment on above:Performed By: #### LIPID, CMP, URIC #### [facility] [address] [place] [address] Dr. Sarah NapolesCreatinine [Mass/Vol]0.63 mg/dLNormal0.55-1.02The [facility] CenterComment on above:Performed By: #### LIPID, CMP, URIC #### [facility] [address] [place] [address] Dr. Sarah BunnGFR-AF GUYANESE>60Normal>=60The [facility] CenterComment on above:Performed By: #### LIPID, CMP, URIC #### [facility] [address] [place] [address] Dr. Sarah BunnGFR-NON AF GUYANESE>60Normal>=60The [facility] CenterComment on above:Performed By: #### LIPID, CMP, URIC #### [facility] [address] [place] [address] Dr. Sarah NapolesGlobulin (S) [Mass/Vol]3.4 g/dLNormalThe [facility] CenterComment on above:Performed By: #### LIPID, CMP, URIC #### [facility] [address] [address] [address] Sarah NapolesGlucose [Mass/Vol]92 mg/nPAsmias93-512Zuo [facility] Comment on above:Performed By: #### LIPID, CMP, URIC #### [facility] [address] [address] [address] Sarah NapolesPotassium [Moles/Vol]4.3 mmol/LNormal3.5-5.1The [facility] Comment on above:Performed By: #### LIPID, CMP, URIC #### [facility] [address] [address] [address] Sarah NapolesProtein [Mass/Vol]7.7 g/dLNormal6.4-8.2The [facility] Comment on above:Performed By: #### LIPID, CMP, URIC #### [facility] [address] [address] [address] Sarah NapolesSodium [Moles/Vol]138 mmol/COgbwmk907-493Pxu [facility] Comment on above:Performed By: #### LIPID, CMP, URIC #### [facility] [address] [address] [address] Sarah NapolesUrea nitrogen [Mass/Vol]25.0 mg/dLCritically high7.0-18.0The [facility] CenterComment on above:Performed By: #### LIPID, CMP, URIC #### [facility] [address] [address] [address] Sarah NapolesUrea nitrogen/Creatinine [Mass ratio]39.7 mg/mgNormalThe [facility] CenterComment on above:Performed By: #### LIPID, CMP, URIC #### [facility] [address] [address] [address] Sarah NapolesURIC ACID SERUMon 28-12-8782Knxml [Mass/Vol]3.7 mg/dLNormal 2.6-6.0The [facility] CenterComment on above:Performed By: #### LIPID, CMP, URIC ####[facility] [address] [place] [address]Dr. Sarah NapolesCT LUNG CANCER SCREENINGon 03-82-6312BY LUNG CANCER SCREENING EXAMINATION: CT LUNG CANCER [...] in 12 months. Electronically authenticated by: SLIME CAROL[place] Date: 2022-07-21 22:18[facility] AUTO DIFFon [id number] #0.1 103/ulNormal0.0-0.1[facility] CenterComment on above:Performed By: #### CBC ####[facility] [address]lsntj[address] [place] [address]Dr.Yilan ChangBasophils/100 WBC (Bld)0.9 %Normal0.2-2.0The [facility] CenterComment on above:Performed By: #### CBC ####[facility] [address]zbbclwi[address] [place] [address]Dr.Yilan ChangEO #0.2 103/ulNormal0.0-0.7The [facility] CenterComrehabilitation institute [facility] [place] on above:Performed By: #### CBC ####[facility] [address]obozjhqg[address] [place] [address]Dr.Yilan ChangEosinophils/100 WBC (Bld)2.5 %Normal 0.9-7.0The [facility] CenterComment on above:Performed By: #### CBC ####[facility] Adpkuecspl[address] [place], [place] [address]Dr.Sarah Napoles Erythrocyte distribution width (RBC) [Ratio]13.4 %Zuqgfe51.0-15.0The [facility] CenterComment on above:Performed By: #### CBC ####[facility] Htimdemdlt16[address] [place], [place] [address]Dr.Sarah NapolesHematocrit (Bld) [Volume fraction]33.3 %Critically low36.0-48.0The Start HospitalComment on above:Performed By: #### CBC ####[facility] Ympykcwuic6[address] [place], [place] [address]Dr.Sarah NapolesHemoglobin (Bld) [Mass/Vol]10.8 g/dL Critically low12.0-16.0The [facility] CenterComment on above:Performed By: #### CBC ####[facility] Sfylerivoe[address] [place], [place] [address]Dr. Sarah ChangIG #0.03 10e3/ulNormal0.00-0.03The [facility] CenterComment on above: Performed By: #### CBC ####[facility] Npejdxaohb[address] [place], [place] [address]Dr.Sarah ChangIG %0.4 %Normal0.0-0.5The [facility] CenterComment on above:Performed By: #### CBC ####[facility] Zhcpvmnwfi5[address] [place], [place] [address]Dr.Sarah NapolesLYMPH #1.7 103/ulNormal1.2-3.8The [facility] CenterComment on above:Performed By: #### CBC ####[facility] Mkvzhhauam[address] [place], [place] [address]Dr. Sarah NapolesLymphocytes/100 WBC (Bld)20.4 %Critically low20.5-60.0The [facility] CenterComment on above:Performed By: #### CBC ####[facility] Isemtpccda7[address] [place], [place] [address]Dr.Sarah NapolesMANUAL DIFF REQ NONormalThe [facility] CenterComment on above:Performed By: #### CBC ####[facility] [address]vbiazd[address] [place] [address]Dr. Sarah NapolesH (RBC) [Entitic mass]32.0 mvFutomh25.7-34.0The [facility] Comment on above:Performed By: #### CBC ####[facility] Usegktstux6[address] [place], [place] [address]Dr.Sarah NapolesHC (RBC) [Mass/Vol]32.4 g/dL Ttaicj04.9-35.2The [facility] CenterComment on above:Performed By: #### CBC ####[facility] Xtwrkbfcpa6830[address] [place], [place] [address]Dr. Sarah NapolesMCV (RBC) [Entitic vol]98.8 lEOyiozn81.0-99.0The [facility] Comment on above:Performed By: #### CBC ####[facility] Evxvbweccf25[address] [place], [place] [address]Dr.Sarah DonyMONO #0.9 103/ulCritically high0.3-0.8The [facility] CenterComment on above:Performed By: #### CBC ####[facility] Mgoqbnezxw5180[address] [place], [place] [address]Dr. Sarah DonyMonocytes/100 WBC (Bld)11.0 %Normal1.7-12.0The [facility] Comment on above:Performed By: #### CBC ####[facility] Nnsyaopjor3635[address] [place], [place] [address]Dr.Sarah DonyNEUT #5.3 103/ulNormal1.4-6.5 The [facility] CenterComment on above:Performed By: #### CBC ####[facility] Ttnelyfwpk[address] [place], [place] [address]Dr.Charlinecassie Napoles Neutrophils/100 WBC (Bld)64.8 %Fespfo87.0-75.0The [facility] CenterComment on above:Performed By: #### CBC ####[facility] Lmlaohautk40[address] [place], [place] [address]Dr.Sarah DonyPlatelet mean volume (Bld) [Entitic vol] 10.8 fLNormal9.5-13.5The [facility] HospitalComment on above:Performed By: #### CBC ####[facility] Wiluzeqbgj[address] [place] [address]Dr. Sarah NapolesPLT262 103/cgCyyjvz817-102Miz [facility] CenterComment on above: Performed By: #### CBC ####[facility] D[address]jiqltbc[address] [place] [address]Dr.Sarah NapolesRBC3.37 106/ulCritically low4.20-5.40The [facility] CenterComment on above:Performed By: #### CBC ####[facility] Kezkvalmsn[address] [place], [place] [address]Dr.Charlinecassie DonyWBC8.1 103/ul Normal4.0-11.0The [facility] CenterComment on above:Performed By: #### CBC ####[facility] Xkbbynedtx34[address] [place], [place] [address]Dr. Sarah NapolesGLYCOHEMOGLOBIN A1Con 05-56-3088WLS RECOMMENDATIONSEE BELOWThe Surgical Hospital at SouthwoodsComment on above:Result Comment: ADA RECOMMENDED LIMIT 4.0 - 6.0 ADA THERAPEUTIC TARGET < 7.0 ACTION SUGGESTED > 7.0Performed By: #### A1C ####[facility] Abfbujopjk37[address] [place], [place] [address]Dr. Sarah NapolesGlucose [Mass/Vol]108 mg/dLNoMartins Ferry HospitalComrehabilitation institute of [place] on above:Performed By: #### A1C ####[facility] Axoiespvek69[address] [place], [place] [address]Dr.Sarah NapolesHbA1c (Bld) [Mass fraction]5.4 %Normal 4.5-6.2The [facility] CenterComrehabilitation [facility] [place] on above:Performed By: #### A1C ####[facility] Ibapgeuzzd037[address] [place], [place] [address]Dr.Sarah NapolesLIPID PROFILEon 71-01-1875TTDV-HDL RATIO NORMSEE [facility] Comment on above:Result Comment: 3.3 - 4.4 LOW RISK 4.4 - 7.1 AVERAGE RISK 7.1 - 11.0 MODERATE RISK >11.0 HIGH RISKPerformed By: #### CMP, LIPID #### [facility] [address] [address] [address] Sarah NapolesCholesterol [Mass/Vol]147 mg/dLNormal<=200[facility] Comment on above:Performed By: #### CMP, LIPID #### [facility] [address] [address] [address] Sarah NapolesCholesterol in HDL [Mass/Vol]58 mg/hCJfjbui25-36Fmj [facility] CenterComment on above:Performed By: #### CMP, LIPID #### [facility] [address] [place] [address] Dr. Sarah NapolesCholesterol in LDL [Mass/Vol]68.0 mg/dLThe Surgical Hospital at SouthwoodsComment on above:Performed By: #### CMP, LIPID #### [facility] [address] [place] [address] Dr. Sarah Gonsalesesterguille.total/Cholesterol in HDL [Mass ratio]2.5 {ratio} NormalThe [facility] CenterComment on above:Performed By: #### CMP, LIPID #### [facility] [address] [place] [address] Dr. Sarah Gutierrez NORMAL> or = 60 mg/dl - LOW CARDIOVASCULAR RISK <40 mg/dl - HIGH CARDIOVASCULAR RISKThe [facility] Hospital at SouthwoodsComment on above:Performed By: #### CMP, LIPID #### [facility] [address] [place] [address] Dr. Sarah NapolesLDL CALC NORMALSEE BELOWThe Surgical Hospital at SouthwoodsComment on above:Result Comment: <100 mg/dl OPTIMAL 100 - 129 mg/dl NEAR OR ABOVE OPTIMAL 130 - 159 mg/dl BORDERLINE HIGH 160 - 189 mg/dl HIGH >190 mg/dl VERY HIGH Performed By: #### CMP, LIPID #### [facility] [address] [place] [address] Dr. Sarah NapolesTriglyceride [Mass/Vol]105 mg/dLNormal<=150[facility] Comment on above:Performed By: #### CMP, LIPID #### [facility] [address] [address] [address] Sarah NapolesVLDL CALC21.0 mg/dLNormalThe [facility] CenterComment on above: Performed By: #### CMP, LIPID #### [facility] [address] [place] [address] Dr. Sarah NapolesPROF 14(COMP METB)on 10-38-3525Tjtevwp [Mass/Vol]4.0 g/dLNormal 3.4-5.0The [facility] CenterComment on above:Performed By: #### CMP, LIPID #### [facility] [address] [place] [address] Dr. Sarah NapolesAlbumin/Globulin [Mass ratio]1.2 {ratio}NormalThe [facility] CenterComment on above:Performed By: #### CMP, LIPID #### [facility] [address] [place] [address] Dr. Sarah Deleon [Catalytic activity/Vol]53 U/UXdwjzi15-618Xns [facility] CenterComment on above:Performed By: #### CMP, LIPID #### [facility] [address] [place] [address] Dr. Sarah Rodrigues [Catalytic activity/Vol]32 U/WXnbate74-02Ijc [facility] CenterComment on above:Performed By: #### CMP, LIPID #### [facility] [address] [place] [address] Dr. Sarah Mcdaniels gap [Moles/Vol]8.0 mmol/LNormalThe [facility] CenterComment on above:Performed By: #### CMP, LIPID #### [facility] [address] [place] [address] Dr. Sarah NapolesAST [Catalytic activity/Vol]23 U/WBqbqof92-74Pqf [facility] CenterComment on above:Performed By: #### CMP, LIPID #### [facility] [address] [place] [address] Dr. Sarah NapolesBilirubin [Mass/Vol]0.4 mg/dLNormal0.2-1.0The [facility] Comment on above:Performed By: #### CMP, LIPID #### [facility] [address] [address] [address] Sarah NapolesCalcium [Mass/Vol]9.4 mg/dLNormal8.5-10.1The [facility] Comment on above:Performed By: #### CMP, LIPID #### [facility] [address] [address] [address] Sarah NapolesChloride [Moles/Vol]100 mmol/YBueqav81-948Hij [facility] Comment on above:Performed By: #### CMP, LIPID #### [facility] [address] [address] [address] Sarah NapolesCO2 [Moles/Vol]30.8 mmol/TSoynei61.0-32.0The [facility] Comment on above:Performed By: #### CMP, LIPID #### [facility] [address] [place] [address] Dr. Sarah NapolesCreatinine [Mass/Vol]0.68 mg/dLNormal0.55-1.02The [facility] CenterComment on above:Performed By: #### CMP, LIPID #### [facility] [address] [place] [address] Dr. Sarah BunnGFR-AF GUYANESE>60Normal>=60The [facility] CenterComment on above:Performed By: #### CMP, LIPID #### [facility] [address] [place] [address] Dr. Sarah BunnGFR-NON AF GUYANESE>60Normal>=60The [facility] CenterComment on above:Performed By: #### CMP, LIPID #### [facility] [address] [place] [address] Dr. Sarah NapolesGlobulin (S) [Mass/Vol]3.3 g/dLNormalThe [facility] CenterComment on above:Performed By: #### CMP, LIPID #### [facility] [address] [place] [address] Dr. Sarah NapolesGlucose [Mass/Vol]90 mg/nJQeflgg10-578Csx [facility] Comment on above:Performed By: #### CMP, LIPID #### [facility] [address] [address] [address] Sarah NapolesPotassium [Moles/Vol]3.8 mmol/LNormal3.5-5.1The [facility] Comment on above:Performed By: #### CMP, LIPID #### [facility] [address] [address] [address] Sarah NapolesProtein [Mass/Vol]7.3 g/dLNormal6.4-8.2The [facility] Comment on above:Performed By: #### CMP, LIPID #### [facility] [address] [address] [address] Sarah NapolesSodium [Moles/Vol]135 mmol/LCritically otu476-941Gnb [facility] CenterComment on above:Performed By: #### CMP, LIPID #### [facility] [address] [address] [address] Sarah NapolesUrea nitrogen [Mass/Vol]13.0 mg/dLNormal7.0-18.0The [facility] CenterComment on above:Performed By: #### CMP, LIPID #### [facility] [address] [address] [address] Sarah Negrete nitrogen/Creatinine [Mass ratio]19.1 mg/mgNormalThe [facility] CenterComment on above:Performed By: #### CMP, LIPID #### [facility] [address] [address] [address] Sarah Lorenzana GLUCOSE LABon 29-87-3106Unyrkzx [Mass/Vol]119 mg/iFItxg18-471 The [facility] HospitalComment on above:Performed By: #### [id number] #### [facility] [address] [place] [address], USAGlucose [Mass/Vol]145 mg/jXTeyn14-763Bqa [facility] HospitalComment on above:Performed By: #### [id number] #### [facility] [address] [place] [address], USAGlucose [Mass/Vol]93 mg/rHTmbnuu42-026Tjn [facility] HospitalComment on above:Performed By: #### [id number] #### [facility] [address] [place] [address], USAGlucose [Mass/Vol]99 mg/rEVznprg81-959Gcc [facility] HospitalComment on above:Performed By: #### [id number] #### [facility] [address] [place] [address], [place] GLUCOSE LABon 74-86-7745Tvppsaw [Mass/Vol]101 mg/dLHigh 70-100The [facility] HospitalComment on above:Performed By: #### [id number] #### [facility] [address] [place] [address], USAGlucose [Mass/Vol]127 mg/yXNgdb27-637Pjy [facility] HospitalComment on above:Performed By: #### [id number] #### [facility] [address] [place] [address], USAGlucose [Mass/Vol]110 mg/lBEozm57-247Upa [facility] HospitalComment on above:Performed By: #### [id number] #### [facility] [address] [place] [address], USABASIC METABOLIC PANELon 83-51-6608Bgihrcb [Mass/Vol]8.4 mg/dLLow8.6-10.3The [facility] HospitalComment on above:Order Comment: No: Do not add to previous drawPerformed By: #### [id number] #### [facility] [address] [place] [address], USAChloride [Moles/Vol]106 mmol/PRxwssd71-452Xhn [facility] HospitalComment on above:Order Comment: No: Do not add to previous drawPerformed By: #### [id number] #### [facility] [address] [place] [address], [place]2 [Moles/Vol]29 mmol/HBdpzal57-85Cmb [facility] HospitalComment on above:Order Comment: No: Do not add to previous draw Performed By: #### [id number] #### [facility] [address] [place] [address], USACreatinine [Mass/Vol]0.50 mg/dLLow0.60-1.20The [facility] HospitalComment on above:Order Comment: No: Do not add to previous drawPerformed By: #### [id number] #### [facility] [address] [place] [address], USAGFR/1.73 sq M.predicted among blacks MDRD (S/P/Bld) [Vol rate/Area]mL/min/{1.73_m2}Normal>60The [facility] Comment on above:Order Comment: No: Do not add to previous drawPerformed By: #### [id number] #### [facility] [address] [place] [address], USAGFR/1.73 sq M.predicted among non-blacks MDRD (S/P/Bld) [Vol rate/Area]mL/min/{1.73_m2}Normal>60The [facility] Comment on above:Order Comment: No: Do not add to previous drawPerformed By: #### [id number] #### [facility] [address] [place] [address], USAGlucose [Mass/Vol]88 mg/wVMmgpik13-684Rug [facility] HospitalComment on above:Order Comment: No: Do not add to previous drawPerformed By: #### [id number] #### [facility] [address] [place] [address], USAPotassium [Moles/Vol]3.3 mmol/LLow3.5-5.1The [facility] HospitalComment on above:Order Comment: No: Do not add to previous drawPerformed By: #### 06739 #### [facility] [address] [place] [address], USASodium [Moles/Vol]141 mmol/BMntkbo086-958Mvh [facility] HospitalComment on above:Order Comment: No: Do not add to previous drawPerformed By: #### [id number] #### [facility] [address] [place] [address], USAUrea nitrogen [Mass/Vol]10 mg/dLNormal7-25The [facility] HospitalComment on above:Order Comment: No: Do not add to previous drawPerformed By: #### [id number] #### [facility] [address] [place] [address], USACBC W/DIFFon 40-55-6777NZN IMM GRANS0.1 10*3/uLNormal 0.0-0.2The [facility] HospitalComment on above:Order Comment: No: Do not add to previous drawPerformed By: #### 47470 #### [facility] [address] [facility] [place] [address], USAABS UWUZAOGTXST20.1 10*3/uLHigh1.6-7.6The [facility] HospitalComment on above:Order Comment: No: Do not add to previous drawPerformed By: #### [id number] #### [facility] [address] [place] [address], USABasophils (Bld) [#/Vol]0.0 10*3/uLNormal0.0-0.2The [facility] HospitalComment on above:Order Comment: No: Do not add to previous drawPerformed By: #### [id number] #### [facility] [address] [place] [address], USABasophils/100 WBC (Bld)0.2 %Normal0.0-1.0The [facility] HospitalComment on above:Order Comment: No: Do not add to previous drawPerformed By: #### [id number] #### [facility] [address] [place] [address], USAEosinophils (Bld) [#/Vol]0.0 10*3/uLNormal0.0-0.5The [facility] HospitalComment on above:Order Comment: No: Do not add to previous drawPerformed By: #### 71528 #### [facility] [address] [place] [address], USAEosinophils/100 WBC (Bld)0.1 %Normal0.0-6.0The [facility] HospitalComment on above:Order Comment: No: Do not add to previous drawPerformed By: #### 44879 #### [facility] [address] [facility] [place] [address], USAErythrocyte distribution width (RBC) [Ratio]13.1 %Normal 11.5-15.0The [facility] HospitalComment on above:Order Comment: No: Do not add to previous drawPerformed By: #### [id number] #### [facility] [address] [facility] [place] [address], USAHematocrit (Bld) [Volume fraction]27.7 %Low36.0-45.0The [facility] HospitalComment on above:Order Comment: No: Do not add to previous drawPerformed By: #### [id number] #### [facility] [address] [facility] [place] [address], USAHemoglobin (Bld) [Mass/Vol]9.2 g/dLLow12.0-15.0The [facility] HospitalComment on above:Order Comment: No: Do not add to previous drawResult Comment: RESULTS CHECKEDPerformed By: #### [id number] #### [facility] [address] [place] [address], USAIMMATURE GRANS0.4 %Normal0.0-1.0The [facility] HospitalComment on above:Order Comment: No: Do not add to previous draw Performed By: #### [id number] #### [facility] [address] [place] [address], USALymphocytes (Bld) [#/Vol]1.8 10*3/uLNormal1.2-4.0The [facility] HospitalComment on above:Order Comment: No: Do not add to previous drawPerformed By: #### 62505 #### [facility] [address] [place] [address], USALymphocytes/100 WBC (Bld)13.6 %Low20.0-45.0The [facility] HospitalComment on above:Order Comment: No: Do not add to previous drawPerformed By: #### 23628 #### [facility] [address] [place] [address], [facility] SERVICESMCH (RBC) [Entitic mass]32.4 ljRhhoik06.0-33.0The [facility] HospitalComment on above:Order Comment: No: Do not add to previous drawPerformed By: #### 62810 #### [facility] [address] [place] [address], [facility] SERVICESMCHC (RBC) [Mass/Vol]33.2 g/xEPejkig95.0-35.0The [facility] HospitalComment on above:Order Comment: No: Do not add to previous drawPerformed By: #### [id number] #### [facility] [address] [place] [address], [facility] SERVICESMCV (RBC) [Entitic vol]97.5 fSDaypqr17.0-98.0The [facility] HospitalComment on above:Order Comment: No: Do not add to previous drawPerformed By: #### [id number] #### [facility] [address] [place] [address], USAMonocytes (Bld) [#/Vol]1.4 10*3/uLHigh0.1-1.0The [facility] HospitalComment on above:Order Comment: No: Do not add to previous drawPerformed By: #### [id number] #### [facility] [address] [place] [address], SCILZGRT73.1 %Normal5.0-12.0The [facility] HospitalComment on above:Order Comment: No: Do not add to previous drawPerformed By: #### [id number] #### [facility] [address] [place] [address], USANeutrophils/100 WBC (Bld)75.6 %High40.0-72.0The [facility] HospitalComment on above:Order Comment: No: Do not add to previous drawPerformed By: #### 57600 #### [facility] [address] [place] [address], USANucleated RBC/100 WBC (Bld) [Ratio]0 %Normal0-0The [facility] HospitalComment on above:Order Comment: No: Do not add to previous drawPerformed By: #### 52034 #### [facility] [address] [place] [address], USAPLAT [id number] 10*3/xKZrpgna861-154Wew [facility] HospitalComment on above:Order Comment: No: Do not add to previous draw Performed By: #### 05458 #### [facility] [address] [place] [address], USARBC (Bld) [#/Vol]2.84 10*6/uLLow3.80-5.00The [facility] HospitalComment on above:Order Comment: No: Do not add to previous drawPerformed By: #### [id number] #### [facility] [address] [place] [address], USAWBC (Bld) [#/Vol]13.43 10*3/uLHigh4.00-10.60The [facility] HospitalComment on above:Order Comment: No: Do not add to previous drawPerformed By: #### [id number] #### [facility] [address] [place] [address], USAPOC GLUCOSE LABon 24-79-0217Zkaedgt [Mass/Vol]115 mg/dLHigh 70-100The [facility] HospitalComment on above:Performed By: #### 33870 #### [facility] [address] [place] [place] [address], USAGlucose [Mass/Vol]110 mg/hAMqzf31-485Dfv [facility] HospitalComment on above:Performed By: #### 85696 #### [facility] [address] [facility] [place] [address], USAGlucose [Mass/Vol]111 mg/vYBfji73-224Gus [facility] HospitalComment on above:Performed By: #### 88480 #### [facility] [address] [facility] [place] [address], USAGlucose [Mass/Vol]102 mg/sUDtqf63-961Rdn [facility] HospitalComment on above:Performed By: #### 17906 #### [facility] [address] [place] [address], USAHIP RIGHT 1 OR 2 VWS WITH PELVISon [id number] RIGHT 1 OR 2 VWS WITH PELVISUnAvita Health [facility] Department of Radiology [address] [place] [id number] Patient Name: BLANCA BUTLER : 1960 Sex: F Age: Race: White [...] reports Electronically signed: Panda Smith. Transcribed by: [email or web address], User Resident: YVROSE RODRIGUES Electronically Signed by: PANDA SMITH @ 12/31/2020 04:29 PM I personally read this/these film(s) with this [facility] CenterComment on above:Order Comment: RIGHT ANTERIOR TOTAL HIP REPLACEMENTOperative Reporton [id number] ReportMR#: [id number] I [facility] Pt. Name: Blanca Butler Room #: [id number] Discharge Date: Birthdate: 1960 OPERATIVE REPORT DATE [...] right hip pain despite nonoperative measures. Has baqi-ng-smtc osteoarthritis of the right hip with subchondral [...] Roberts M.D. Date Trans: 12/31/2020 09:28 P/mmo DN_JN:[id number] [facility] GLUCOSE LAB on 16-13-3056Xfagzcy [Mass/Vol]167 mg/iKFxdz95-344Vxq [facility] HospitalComment on above:Performed By: #### 63505 #### [facility] [address] [facility] [place] [address], USAGlucose [Mass/Vol]162 mg/rAPgkn43-448Cji [facility] HospitalComment on above:Performed By: #### 81543 #### [facility] [address] [place] [address], USAGlucose [Mass/Vol]168 mg/yKPlbm95-018Dpy [facility] HospitalComment on above:Performed By: #### 65431 #### [facility] [address] [place] [address], USAGlucose [Mass/Vol]104 mg/bWPtqu26-245Njf [facility] HospitalComment on above:Performed By: #### 93698 #### [facility] [address] [facility] [address] [place] [address], USAPORTABLE HIP RIGHT 1 OR 2 VWS WITH PELVISon 12-31-2020 PORTABLE HIP RIGHT 1 OR 2 VWS WITH PELVISUnAvita Health [facility] Department of Radiology [address] [facility] [place] [address] Patient Name: BLANCA BUTLER : 1960 Sex: F Age: Race: White [...] fracture Electronically signed: Panda Smith. Transcribed by: [id number], User Resident: Electronically Signed by: PANDA SMITH @ 12/31/2020 01:05 PMNormalThe [facility] HospitalComment on above:Order Comment: Hardware Evaluation, PACU*MRSA/MSSA DNA NASALon 12-10-2020*MRSA/MSSA DNA NASALClinical Report: (D) Specimen: NASAL SWAB Collected: 12/10/2020 13:55 Status: Final Last Updated: 12/11/2020 15:48 MSSA DNA (Final) Negative MRSA DNA (Final) NegativeNormalThPremier Health Upper Valley Medical CenterComment on above:Performed By: #### [id number] #### [facility] [address] [place] [address], USACBC W/DIFFon 65-94-0231DZN IMM GRANS0.0 10*3/uLNormal 0.0-0.2The [facility] HospitalComment on above:Performed By: #### 40154 #### [facility] [address] [place] [address], USAABS NEUTROPHILS7.7 10*3/uLHigh1.6-7.6The [facility] HospitalComment on above:Performed By: #### 75700 #### [facility] [address] [place] [address], USABasophils (Bld) [#/Vol]0.1 10*3/uLNormal0.0-0.2The [facility] HospitalComment on above:Performed By: #### 45897 #### [facility] [address] [place] [address], USABasophils/100 WBC (Bld)0.6 %Normal0.0-1.0The [facility] HospitalComment on above:Performed By: #### 16346 #### [facility] [address] [facility] [place] [address], USAEosinophils (Bld) [#/Vol]0.1 10*3/uLNormal0.0-0.5The [facility] HospitalComment on above:Performed By: #### 15665 #### [facility] [address] [facility] [place] [address], USAEosinophils/100 WBC (Bld)1.0 %Normal0.0-6.0The [facility] HospitalComment on above:Performed By: #### 45068 #### [facility] [address] [place] [address], USAErythrocyte distribution width (RBC) [Ratio]13.0 %Normal 11.5-15.0The [facility] HospitalComment on above:Performed By: #### 97493 #### [facility] [address] [place] [address], USAHematocrit (Bld) [Volume fraction]36.2 %Ztvame14.0-45.0The [facility] HospitalComment on above:Performed By: #### 44263 #### [facility] [address] [facility] [place] [address], USAHemoglobin (Bld) [Mass/Vol]11.9 g/dLLow12.0-15.0The [facility] HospitalComment on above:Performed By: #### 89268 #### [facility] [address] [place] [address], USAIMMATURE GRANS0.3 %Normal0.0-1.0The [facility] HospitalComment on above:Performed By: #### 03969 #### [facility] [address] [facility] [place] [address], USALymphocytes (Bld) [#/Vol]1.5 10*3/uLNormal1.2-4.0The [facility] HospitalComment on above:Performed By: #### 22369 #### [facility] [address] [place] [address], [facility] CARE SERVICESLymphocytes/100 WBC (Bld)15.1 %Low20.0-45.0The [facility] HospitalComment on above:Performed By: #### 96946 #### [facility] [address] [facility] [address], [facility]MANH (RBC) [Entitic mass]31.9 iiHfzirf14.0-33.0The [facility] HospitalComment on above:Performed By: #### 05878 #### [facility] [address] [place] [id number], [facility] NORMANHC (RBC) [Mass/Vol]32.9 g/lCHaqwur67.0-35.0The [facility] HospitalComment on above:Performed By: #### 31487 #### [facility] [address] [facility] [address], [facility] SERVICESMCV (RBC) [Entitic vol]97.1 yPQkdzje81.0-98.0The [facility] HospitalComment on above:Performed By: #### 21376 #### [facility] [address] [facility] [address], [facility] SERVICESMonocytes (Bld) [#/Vol]0.7 10*3/uLNormal0.1-1.0The [facility] HospitalComment on above:Performed By: #### 30202 #### [facility] [address] [address] [place] [id number], USAMONOS7.3 %Normal5.0-12.0The [facility] HospitalComment on above:Performed By: #### 92380 #### [facility] [address] [place] [address], USANeutrophils/100 WBC (Bld)75.7 %High40.0-72.0The [facility] HospitalComment on above:Performed By: #### 56841 #### [facility] [address] [place] [address], USANucleated RBC/100 WBC (Bld) [Ratio]0 %Normal0-0The [facility] HospitalComment on above:Performed By: #### 03754 #### [facility] [address] [place] [address], USAPLAT UNF832 10*3/zJHocdye803-605Svz [facility] HospitalComment on above:Performed By: #### 83242 #### [facility] [address] [facility] [place] [address], USARBC (Bld) [#/Vol]3.73 10*6/uLLow3.80-5.00The [facility] HospitalComment on above:Performed By: #### 64956 #### [facility] [address] [facility] [place] [address], USAWBC (Bld) [#/Vol]10.11 10*3/uLNormal4.00-10.60The [facility] HospitalComment on above:Performed By: #### 16759 #### [facility] [address] [facility] [place] [address], USAHEMOGLOBIN A1Con 27-95-5378Kncwopc [Moles/Vol]108 mmol/L NormalThe [facility] HospitalComment on above:Performed By: #### 64354 #### [facility] [address] [facility] [place] [address], YXPPwY6u (Bld) [Mass fraction]5.4 %Normal4.0-6.0The [facility] HospitalComment on above:Performed By: #### 98343 #### [facility] [address] [facility] [place] [address], USAHIP RIGHT 1 OR 2 VWS WITH PELVISon 08-14-9481NPR RIGHT 1 OR 2 VWS WITH PELVISVan Wert County Hospital Department of Radiology [address] [place] [id number] Patient Name: BLANCA BUTLER : 1960 Sex: F Age: Race: White [...] exam. Electronically signed: Rodney Sutherland. Transcribed by: [email or web address], User Resident: Electronically Signed by: RODNEY Joelle SUTHERLAND @ 11/22/2020 03:43 PMNParma Community General HospitalComment on above:Order Comment: Evaluate Vital Signs Date TimeVital SignValuePerforming AayybmmkmTytwyqin33-55-9622 15:14-0500Body fijydn251.1 cmJose Guadalupe Mejia MD Work Phone: [phone]11-11-2025 15:14-0500 Body mass index (BMI) [Ratio]28.1 kg/m2Jose Guadalupe Mejia MD Work Phone: [phone]11-11-2025 15:14-0500 Body nkjuxcwolzu58 [degF]Jose Guadalupe Mejia MD Work Phone: [phone]11-11-2025 15:14-0500 Body bbihdv89.65 kgJose Guadalupe Mejia MD Work Phone: [phone]11-11-2025 15:14-0500 Diastolic blood qyvkjtqr98 mm[Hg]Jose Guadalupe Mejia MD Work Phone: [phone]11-11-2025 15:14-0500 Heart rate74 /minJose Guadalupe Mejia MD Work Phone: [phone]11-11-2025 15:14-0500 Respiratory rate22 /minJose Guadalupe Mejia MD Work Phone: [phone]11-11-2025 15:14-0500 SaO2% (BldA) [Mass fraction]98 %Jose Guadalupe Mejia MD Work Phone: [phone] [address]11-11-2025 15:14-0500 Systolic blood pzslbusi431 mm[Hg]Jose Guadalupe Mejia MD Work Phone: [phone]07-30-2025 13:49-0400 Body kdegeh552.6 cmJose Guadalupe Mejia MD Work Phone: [facility] InstituteVxkcdgkzot80-74-3515 13:49-0400Body mass index (BMI) [Ratio]28.67 kg/m2Jose Guadalupe Mejia MD Work Phone: [facility] InstituteKiguuwdumf46-13-6173 13:49-0400Body temperature 97.11 [degF]Jose Guadalupe Mejia MD Work Phone: [facility] InstituteCnkypgbbzk03-97-9016 13:49-0400Body zuogsc65.75 kgJose Guadalupe Mejia MD Work Phone: [facility] InstituteGmbenzshxs81-84-2031 13:49-0400Diastolic blood gkuuptts75 mm[Hg]Jose Guadalupe Mejia MD Work Phone: [facility] InstituteKgkobpytdd19-97-4923 13:49-0400Heart rate74 /min Jose Guadalupe Mejia MD Work Phone: [facility] InstitutePjxakryoag99-52-3408 13:49-0400Respiratory rate22 /minJose Guadalupe Mejia MD Work Phone: [facility] InstituteJqucttodrl31-67-7896 13:49-4225NrM3% (BldA) [Mass fraction]94 %Jose Guadalupe Mejia MD Work Phone: [facility] InstituteAlaumxcilx69-43-3984 13:49-0400Systolic blood geipbedq672 mm[Hg]Jose Guadalupe Mejia MD Work Phone: [facility] InstituteKjrzeqhqhc43-26-7944 14:50-0500Body .6 cmMaisha Soodk TITLE INSURANCE SALES REPRESENTATIVE Work Phone: [facility] InstituteNmdqrcbmmh95-37-3941 14:50-0500Body mass index (BMI) [Ratio]31.24 kg/r1IoryvgtzMaisha Pughtrick TITLE INSURANCE SALES REPRESENTATIVE Work Phone: [facility] InstituteMmsptmmzlc61-40-2493 14:50-0500Body temperature 97.2 [degF]Maisha Wyman TITLE INSURANCE SALES REPRESENTATIVE Work Phone: [facility] InstituteUtjlwuynjp85-93-6260 14:50-0500Body .56 kgMaisha Soodk TITLE INSURANCE SALES REPRESENTATIVE Work Phone: [phone] [place], [place] [address]Fliphvrulu33-26-3393 14:50-0500Diastolic blood byqvdnmv48 mm[Hg]Maisha Wyman TITLE INSURANCE SALES REPRESENTATIVE Work Phone: [facility] InstituteLzgzfdlomp79-22-1184 14:50-0500Heart rate62 /min Maisha Wyman TITLE INSURANCE SALES REPRESENTATIVE Work Phone: [facility] InstituteQhtlcfbugr63-49-1866 14:50-0500Respiratory rate16 /minBrhesham Wyman TITLE INSURANCE SALES REPRESENTATIVE Work Phone: [facility] InstituteUeffdnktse19-97-5455 14:50-7831KmG2% (BldA) [Mass fraction]99 %Maisha Wyman TITLE INSURANCE SALES REPRESENTATIVE Work Phone: [facility] InstituteDwnhaljxst36-86-8073 14:50-0500Systolic blood uhuwtjpy778 mm[Hg]Maisha Wyman TITLE INSURANCE SALES REPRESENTATIVE Work Phone: [facility] InstituteWaqaktexob77-42-5506 13:29-0500Body cm Duncan Bradshaw PA Work Phone: [place] [phone] 13:29-0500Body mass index (BMI) [Ratio]31.89 kg/k0DcyhldnDuncan Bradshaw PA Work Phone: [facility] InstituteQnasomcgqw28-08-5895 13:29-0500Body edlxtw86.65 kgDuncan Bradshaw PA Work Phone: [facility] InstituteBvuhgbbqoi23-10-7571 14:47-0400Body yjgthm429.6 cmMaritzamore OwenWyman TITLE INSURANCE SALES REPRESENTATIVE Work Phone: [facility] InstitutePgdntzaxfq06-87-2361 14:47-0400Body mass index (BMI) [Ratio]30.21 kg/z2Clyluomx Wyman TITLE INSURANCE SALES REPRESENTATIVE Work Phone: [facility] InstituteWmnxzeqokj35-25-1275 14:47-0400Body temperature 97.7 [degF]Maisha Wyman TITLE INSURANCE SALES REPRESENTATIVE Work Phone: [facility] InstituteFoojvqmmcw39-53-0979 14:47-0400Body sogxyn56.83 kgMaisha Chamberspatrick TITLE INSURANCE SALES REPRESENTATIVE Work Phone: [facility] Bcsnqomuyp11-97-7638 14:47-0400Diastolic blood prlbehzz60 mm[Hg]Maisha Chamberspatrick TITLE INSURANCE SALES REPRESENTATIVE Work Phone: [facility] Beyrowiecc87-95-6896 14:47-0400Heart rate65 /min Maisha Chamberspatrick TITLE INSURANCE SALES REPRESENTATIVE Work Phone: [facility] HealthcareComment on above:195% C471-02-6069 14:47-0400Systolic blood iyepzbgb127 mm[Hg]Maisha Owenzpatrick TITLE INSURANCE SALES REPRESENTATIVE Work Phone: [facility] Encounters Encounter DateEncounter TypeCare ProviderFacilityStart: 08-15-2025 End: 60-34-2666tekvxdxrkcIbcc Naderer MD Work Phone: -[facility] ClydeStart: 08-15-2025 End: 93-02-7895Wlinibl encounter procedureJose Guadalupe Mejia MD-[facility] [place] Work Phone: Start: 06-13-2025 End: 39-91-7733ddtejzojfqVUPO NADERERNot AvailableStart: 05-29-2025 End: 89-37-3656PuolxyOokk Naderer MD Work Phone: [facility] CWM FMComment on above:Chronic left shoulder pain; Chronic pain of left kneeStart: 05-15-2025 End: 19-01-0299wgccqpdcnrIquhvumMaris May MDFacility:PM [facility] Start: 05-03-2025 End: 86-05-0085Hhfvhn flowsOlivia Mejia MD Work Phone: [facility] CWM FMStart: 05-03-2025 End: 60-21-0334Rdoweb Mylene Mejia MD Work Phone: [facility] CWM FMStart: 05-03-2025 End: 04-40-9519Moctfy outpatient visit 25 minutesJose Guadalupe Mejia MD Work Phone: [facility] CWM FMComment on above:Primary hypertension (Primary Dx); Chronic obstructive pulmonary disease, unspecified COPD type (HCC); MDD (major depressive disorder), recurrent episode, mild ; Primary osteoarthritis of left knee; Primary insomnia; Former smokerStart: 05-03-2025 End: 70-34-4652jbxwksyqakJLGC NADERERNot AvailableStart: 04-26-2025 End: 07-49-4507LltzctMlge Naderer MD Work Phone: [facility] CWM FMComment on above:Chronic left shoulder pain; Chronic pain of left kneeStart: 04-10-2025 End: 36-29-9827TnskmxAeoi Naderer MD Work Phone: [facility] CWM FMComment on above:Chronic left shoulder pain; Chronic pain of left kneeStart: 03-28-2025 End: 65-96-0770Zhdpsmtpu Result EncounterGeneric External Data ProviderNOMS External Department UnsolicitedStart: 03-28-2025 End: 77-98-7152Lxdaojaxp Result EncounterGeneric External Data ProviderNOMS External Department UnsolicitedStart: 03-28-2025 End: 22-38-3864OocknmFhkr Naderer MD Work Phone: [facility] CWM FMComment on above:Chronic left shoulder pain; Chronic pain of left kneeStart: 03-06-2025 End: 58-65-4100BptquxItnp Naderer MD Work Phone: [facility] CWM FMComment on above:Suspected chronic obstructive pulmonary disease based on initial evaluation ([facility]); Mild intermittent asthma without complication (CMS/[facility])Start: 03-06-2025 End: 76-69-1815clinxqnhpjPhmalpr Vytautas Giedraitis MDFacility:PM Start Start: 01-25-2025 End: 56-10-3589NcynxrMqti Naderer MD Work Phone: [facility] CWM FMComment on above:Chronic left shoulder pain; Chronic pain of left kneeStart: 01-24-2025 End: 62-48-9263Ogjamtzzz Result Brittani Mejia MD Work Phone: n[facility] External Department UnsolicitedStart: 01-24-2025 End: 40-56-3071Bthfyzhdc Result Brittani Mejia MD Work Phone: [facility] External Department UnsolicitedStart: 01-23-2025 End: 78-50-9516PnolkjDytt Naderer MD Work Phone: [facility] CWM FMComment on above:MDD (major depressive disorder), recurrent episode, mild (HCC) (CMS/HCC)Start: 12-26-2024 End: 87-85-8967MktcpdZdkb Naderer MD Work Phone: [facility] CWM FMComment on above:Chronic left shoulder pain; Chronic pain of left kneeStart: 12-20-2024 End: 68-09-4671dbferzmkyfPREH NADERERNot AvailableStart: 11-13-2024 End: 99-70-4628LmglqaNzauqbgw Wyman TITLE INSURANCE SALES REPRESENTATIVE Work Phone: NOFL CWM FMComment on above:Chronic left shoulder pain; Chronic pain of left kneeStart: 11-08-2024 End: 37-19-7199NukvruQzlfOlimpia GROVE CWM FMComment on above:Chronic left shoulder pain; Chronic pain of left kneeStart: 10-26-2024 End: 45-63-4631MunlbrNfijOlimpia GROVE CWM FMComment on above:Chronic left shoulder pain; Chronic pain of left kneeStart: 10-10-2024 End: 22-03-2656YvxuxvNifapjqp Wyman TITLE INSURANCE SALES REPRESENTATIVE Work Phone: N[facility] CWM FMComment on above:Chronic left shoulder pain; Chronic pain of left knee; Suspected chronic obstructive pulmonary disease based on initial evaluation (CMS/[facility]); Hyperuricemia; Primary hypertension ([facility]/HCC)Start: 09-14-2024 End: 60-68-2026ZqpgktLwguOlimpia GROVE CWM FMComment on above:Primary hypertension (CMS/HCC); Hyperuricemia; Chronic left shoulder pain; Chronic pain of left knee; Mixed hyperlipidemia (CMS/HCC)Start: 09-13-2024 End: 22-09-9472Uzvadw outpatient visit 15 minutesMaisha Wyman NP Work Phone: NOGJ CWM FMComment on above:Mixed hyperlipidemia (CMS/HCC) (Primary Dx); Suspected chronic obstructive pulmonary disease based on initial evaluation (CMS/HCC); Mild intermittent asthma without complication (CMS/HCC); Primary hypertension (CMS/HCC); Osteoporosis without current pathological fracture, unspecified osteoporosis type (CMS/HCC)Start: 09-13-2024 End: 10-88-4432gotipbnnfrEBBEWXUXTiburcio Javier AvailableStart: 09-13-2024 End: 21-55-1207Eztioh flowsheetMaisha Wyman TITLE INSURANCE SALES REPRESENTATIVE Work Phone: noms CWM FMStart: 09-13-2024 End: 20-96-0142Qcikix flowsheetMaisha Wyman TITLE INSURANCE SALES REPRESENTATIVE Work Phone: noms CWM FMStart: 08-24-2024 End: 17-42-0684PydsyxAprbJimmy GROVE CWM FMComment on above:Chronic left shoulder pain; Chronic pain of left kneeStart: 08-18-2024 End: 84-58-1541GzprrcQlffJimmy GROVE CWM FMComment on above:Primary hypertension (CMS/HCC)Start: 08-16-2024 End: 08-24-4988Dsglpt outpatient visit 25 minutesDuncan MENA Work Phone: NOAN FB ORTHOPAEDICSComment on above:Acute pain of left knee (Primary Dx); Arthritis of left knee; History of total right hip replacementStart: 08-16-2024 End: 45-19-7223UwtffhGoznJimmy GROVE CWM FMComment on above:Mixed hyperlipidemia (CMS/HCC)Start: 08-08-2024 End: 05-59-5828XuhacgAshley Wyman TITLE INSURANCE SALES REPRESENTATIVE Work Phone: noms CWM FMComment on above:Osteoarthritis of both knees, unspecified osteoarthritis type (Primary Dx)Start: 08-01-2024 End: 40-05-0567Cdbfpeyps Result EncounterBrittany Wyman TITLE INSURANCE SALES REPRESENTATIVE Other Phone: noms External Department UnsolicitedStart: 08-01-2024 End: 16-73-0165Zukauerqc Result EncounterBrittany Wyman TITLE INSURANCE SALES REPRESENTATIVE Other Phone: noms External Department UnsolicitedStart: 07-26-2024 End: 11-27-6383WazlrqQoeo Howard MANOMS SEP FMComment on above:Chronic left shoulder pain; Chronic pain of left kneeStart: 07-14-2024 End: 55-30-0102ZgpinpJmrswcnd Wyman TITLE INSURANCE SALES REPRESENTATIVE Work Phone: noms CWM FMComment on above:Chronic left shoulder pain; Chronic pain of left kneeStart: 07-13-2024 End: 60-83-5127Biwdue OnlyBrittany Wyman TITLE INSURANCE SALES REPRESENTATIVE Work Phone: noms CWM FMComment on above:Suspected chronic obstructive pulmonary disease based on initial evaluation ([facility]) (Primary Dx); Mild intermittent asthma without complication ([facility])Start: 07-12-2024 End: 55-89-4932Zevlssjpm Result EncounterBrittany Wyman TITLE INSURANCE SALES REPRESENTATIVE Work Phone: noms External Department UnsolicitedStart: 07-12-2024 End: 80-40-1648Kzaijybmn Result EncounterBrittany Wyman TITLE INSURANCE SALES REPRESENTATIVE Work Phone: noms External Department UnsolicitedStart: 07-07-2024 End: 93-15-4360Ahjkqy OnlyBrittany Wyman TITLE INSURANCE SALES REPRESENTATIVE Work Phone: noms CWM FMComment on above:Suspected chronic obstructive pulmonary disease based on initial evaluation ([facility]) (Primary Dx) Start: 06-27-2024 End: 83-73-8168Scvpud OnlyBrittany Wyman TITLE INSURANCE SALES REPRESENTATIVE Work Phone: NOMU CWM FMComment on above:Primary hypertension (CMS/HCC); Chronic left shoulder pain; Chronic pain of left kneeStart: 06-27-2024 End: 98-08-1344xtvxpzjchyZgyqtgc Vytautas Giedraitis MDFacility:PM Harley Start: 06-21-2024 End: 02-06-1929YzleltJfyvoc Sunny GROVE CWM IMComment on above:Osteoporosis without current pathological fracture, unspecified osteoporosis type (CMS/HCC) Start: 06-14-2024 End: 70-53-8255Tbtiut outpatient visit 25 minutesMaisha Wyman TITLE INSURANCE SALES REPRESENTATIVE Work Phone: NOCM CWM FMComment on above:Primary hypertension (CMS/HCC) (Primary Dx); Symptoms of upper respiratory infection (URI); Chronic left shoulder pain; Mixed hyperlipidemia (CMS/HCC); Suspected chronic obstructive pulmonary disease based on initial evaluation (CMS/HCC); Chronic pain of left kneeStart: 06-14-2024 End: 34-83-9589Kejrmg flowsheetBrittany Wyman TITLE INSURANCE SALES REPRESENTATIVE Work Phone: NOFD CWM FMStart: 06-14-2024 End: 50-81-9999Weglbs flowsheetBrittany Wyman TITLE INSURANCE SALES REPRESENTATIVE Work Phone: NOBZ CWM FMStart: 05-24-2024 End: 67-71-7227AeumabQsiiaeym Wyman TITLE INSURANCE SALES REPRESENTATIVE Work Phone: NOMS CWM FMComment on above:Chronic left shoulder pain; Chronic pain of left kneeStart: 03-28-2024 End: 47-45-0169Sfqxrwdsv Result EncounterGeneric External Data ProviderNOMS External Department UnsolicitedStart: 03-28-2024 End: 74-82-2664Jxtnoppzg Result EncounterGeneric External Data ProviderNOMS External Department UnsolicitedStart: 03-15-2024 End: 02-46-0381Imvcmbteb Result Daryl Chambers MD Work Phone: NOMS External Department UnsolicitedStart: 03-15-2024 End: 45-79-6903Xeqaxulnp Result EncounterSdayday Chambers MD Work Phone: noms External Department UnsolicitedStart: 03-15-2024 Preoperative Kylah Wyman TITLE INSURANCE SALES REPRESENTATIVE Work Phone: noms HealthcareStart: 01-08-2024 End: 74-80-6651Ryqtdsxra Result EncounterSdayday Chambers MD Work Phone: noms External Department UnsolicitedStart: 01-08-2024 End: 74-48-9677Rwnsglsqb Result EncounterSdayday Chambers MD Work Phone: noms External Department UnsolicitedStart: 11-12-2023 Orders OnlyShaikh Reyes PALACIO Work Phone: noms CWM IMComment on above:Chronic left shoulder pain; Chronic pain of left kneeStart: 18-09-8290Xgdkedq encounter procedureSdayday Chambers MD Work Phone: noms HealthcareStart: 03-03-2023 End: 67-49-6553fzuqkymrrgHHNSTL H FAWWADFacility:Z4Ozdos: 02-25-2023 End: 78-69-9104gzuzdlhffgLSDHWE H FAWWADFacility:E8Bmbsb: 02-09-2023 End: 40-71-5056sbfnhvvhalHWLNTT H FAWWADFacility:E1Igkrv: 02-02-2023 End: 98-30-9705egsskcjtgxSVUICT H FAWWADFacility:K2Ijrso: 01-08-2023 End: 21-28-7588oqgukwkqakRSDYPZ H FAWWADFacility:D2Ulxwk: 12-17-2022 End: 28-23-9310rcteevtvxwPBYKME H FAWWADFacility:U3Jljtf: 12-15-2022 End: 49-44-3976bbdafhkzlrNICUNW H FAWWADFacility:H5Klhhs: 07-21-2022 End: 74-28-5811xgyaxhehmiAOGZOL Gerson LUCITADFacility:A6Atckx: 06-16-2022 End: 01-22-8074keeiwuvnjaGJYDTX Gerson ADRIANWADFacility:M8Ofrbl: 12-31-2020 End: 77-22-7764dcksssipxeFCOYPCVQY UNKNOWNFacility:[facility] Procedures DateProcedureProcedure DetailPerforming ClinicianStart: 27-30-4548Wld spinal canal cervical w/o contrast matrlGeneric External Data ProviderStart: 01-24-2025 ALL CBC WITH AUTO DIFFMarc Jackie PALACIO Work Phone: Start: 19-37-3233BI KNEE STANDING BIBrittany Wyman TITLE INSURANCE SALES REPRESENTATIVE Other Phone: Start: 17-71-2105SD PULMONARY FUNCTION TESTBrittany Wyman TITLE INSURANCE SALES REPRESENTATIVE Other Phone: Start: 23-84-1138UJV HEMOGLOBINBrittany Wyman TITLE INSURANCE SALES REPRESENTATIVE Work Phone: Start: 59-63-9287OW SHOULDER LT WO CONGeneric External Data ProviderStart: 06-30-8414DAJ 12-LEADSdayday Chambers MD Work Phone: Start: 28-42-4728UE TOMOSYNTHESIS SCREENING Riana Chambers MD Work Phone: Start: 76-14-7653RmwpxpkdcfbKampevpa Fitzpatrick TITLE INSURANCE SALES REPRESENTATIVE Work Phone: Start: 46-47-3429MdkvhyoggqzDbrovj Fawwad MD Work Phone: Start: 98-74-3527YVHHJR HIP ARTHROPLASTYHERMINIO Lai GERACIELINGStart: 87-50-3770EIPLD DEVICE (IMPLANTABLE)HERMINIO ONOFREINGStart: 66-55-6637PWXCK HIP ARTHROPLASTYHERMINIO ONOFREINGStart: 23-49-4772Nifxgcmjbbi Shaikh Reyes PALACIO Work Phone: Plan of Treatment DateCare ActivityDetailAuthorStart: 03-64-2417Vswai screening for protein Diabetes: Urine Protein ScreeningSHRINERS HOSPITALS FOR CHILDREN HealthcareStart: 81-53-7267Gpvfwmcto for malignant neoplasm of colonSHRINERS HOSPITALS FOR CHILDREN HealthcareStart: 57-16-5211Arjxmxwdc for malignant neoplasm of lungLung Cancer Screening Shared Decision MakingFreeman Cancer InstituteComment on above:Postponed from 1958 (Other Medical Reasons) Start: 08-03-2025 End: 07-94-1604Ewygqlk encounter dnsjpiqcn52/30/2025 1:00 PM EDT Office Visit [facility] [address] [place] [phone] Jose Guadalupe Mejia MD [address] [place] [phone] NOMLashanda PAIZ FMStart: 06-13-2025 End: 19-10-3354Gevqcjjopuvy / ancillary services fuszpkriul33/09/2025 3:30 PM EDT Ancillary Procedure [facility] [address] [place] [address] NJLS Amanda ImagingStart: 37-71-0507Ikudikgzq vaccinationSHRINERS HOSPITALS FOR CHILDREN HealthcareStart: 05-03-2025 End: 61-25-6576WW Chest for screening WO contrastCT lung screening low dose Imaging Routine Former smoker Expected: 05/03/2025, Expires: 05/03/2026[facility] Work Phone: Comment on above:Expected: 05/03/2025, Expires: 05/03/2026Start: 05-03-2025 End: 12-66-0600Iezshln encounter procedureMORENO [facility] FMComment on above:Arrived Start: 03-22-2025 End: 81-08-8019Ovgrbeo encounter iohbkifhp16/18/2025 1:45 PM EDT Office Visit [facility] [address] [place] [phone] Jose Guadalupe Mejia MD [address] [place] [phone] NOMS CW FMStart: 22-34-1945Uhxohxbak for malignant neoplasm of breast MammogramNOMS HealthcareStart: 12-15-2024 End: 45-17-8485Fhagjsh encounter gxeteimqg46/13/2025 3:00 PM EDT Office Visit [facility] [address] [place] [phone] Maisha Wyman, FREDO [address] [place] [phone] N[facility] CWM FMStart: 10-11-2024 End: 22-37-7158Kldjqui encounter lkayogkrm78/07/2025 10:45 AM EST Office Visit [facility] [address] [place] [address] Jr. Alessandro Mcconnell C, DO [address] [place] [address] [place] [address] N[facility] FB ORTHOPAEDICSStart: 09-13-2024 End: 65-90-9258Fhwdoom encounter procedureNOMS CWM FMComment on above:Arrived Start: 12-05-2024Medicare Annual Wellness (AWV)Medicare Annual Wellness (AWV) [facility] HealthcareStart: 87-19-9438Aagrgtdje for malignant neoplasm of breast MammogramNOTX HealthcareStart: 07-07-2024 End: 79-64-1198Zaurwwwaa function reportPulmonary Function Test Imaging Routine Suspected chronic obstructive pulmonary disease based on initial evaluation (CMS/[facility]) Expected: 07/07/2024, Expires: 07/07/2025[facility] Healthcare Work Phone: Comment on above:Expected: 07/07/2024, Expires: 07/07/2025Start: 06-14-2024 End: 44-47-1321Eenanqq encounter procedureNOMS CWM FMComment on above:Arrived Start: 06-14-2024 End: 75-97-7623EU Knee - bilateral AP W standingXR knees anteroposterior standing bilateral Imaging Routine Chronic pain of left knee Expected: 06/05, Expires: 06/14/2025[facility] Work Phone: Comment on above:Expected: 06/14/2024, Expires: 06/14/2025Start: 55-38-3482Yrjaffbih vaccinationInfluenza Vaccine (#1)[facility] HealthcareStart: 12-09-2023 End: 39-33-4053Zxkaapo encounter vakxmfqwf20/06/2024 3:30 PM EST Office Visit [facility] [address] [place] [address] Shaikh Chambers MD [address] [place] [address] [facility] IMStart: 54-14-0851Nhisfnlak vaccinationInfluenza Vaccine (#1)[facility] HealthcareStart: 53-11-7767Vsghwngfdili Vaccine: 65+ Years (1 - PCV)Pneumococcal Vaccine: 65+ Years (1 - PCV)[facility] HealthcareStart: 1988 Screening for malignant neoplasm of cervixNOMS HealthcareStart: 1979 Screening for malignant neoplasm of cervixPap SmearNOMS HealthcareStart: 71-38-0535Rphdembcmeyh Vaccine: 65+ Years (1 of 2 - PCV)Pneumococcal Vaccine: 65+ Years (1 of 2 - PCV)[facility] HealthcareStart: 15-84-5775Nqecqfhspebz Vaccine: 65+ Years (1 of 2 - PCV)Pneumococcal Vaccine: 65+ Years (1 of 2 - PCV)[facility] HealthcareStart: 41-15-8841Xglplqygm for malignant neoplasm of colonNOMS HealthcareStart: 26-12-7500Chistcehh for malignant neoplasm of lungLung Cancer Screening Shared Decision MakingFreeman Cancer Institute Immunizations Immunization DateImmunizationNotesCare TxxmrdcsLlgelvzz74-69-6334aqylybw toxoid, reduced diphtheria toxoid, and acellular pertussis vaccine, adsorbedBrittany Wyman TITLE INSURANCE SALES REPRESENTATIVE Work Phone: [facility] InstituteFufhptzujq83-10-4881fszgey vaccine recombinant Maisha Wyman TITLE INSURANCE SALES REPRESENTATIVE Work Phone: [facility] InstituteYrputhpxpf65-59-0731pvgbqnrbn, injectable, quadrivalent, preservative freeBrittany Wyman TITLE INSURANCE SALES REPRESENTATIVE Work Phone: noSt. Lukes Des Peres HospitalKcqbdcjdzz53-46-6372fitqviwey virus vaccine, unspecified formulationSdayday Chambers MD Work Phone: [facility] InstituteBbbcajrlrj40-50-7426lcnysibgo B vaccine, pediatric or pediatric/adolescent dosageBrittany Wyman TITLE INSURANCE SALES REPRESENTATIVE Work Phone: [facility] InstituteUksejcwihd28-67-4977ycchdjyaq B vaccine, pediatric or pediatric/adolescent dosageBrittany Wyman TITLE INSURANCE SALES REPRESENTATIVE Work Phone: [facility] InstituteFnxooethvf23-63-2196wzqvdtcpc B vaccine, pediatric or pediatric/adolescent dosageBrittany Wyman TITLE INSURANCE SALES REPRESENTATIVE Work Phone: [facility] Payers DatePayer CategoryPayerPolicy [id number] MEDICARE ADVANTAGE ANTHEM MEDICARE ADVANTAGE [id number] 2021-Present [address] [place] [id number] 2022Medicare (Managed Care)ANTHEM MEDICARE ADVANTAGE Member Subscriber Plan / Payer (Effective 2021-Present) Name: Butler, Blanca L Relation to Subscriber: Self Name: Blanca Butler Payer ID: Not on file Group ID: [id number] Type: Not on file Address: [address] [place] [id number] [id number] 2.16.840.1.566825.3.57[id number] 2.16.840.1.555790.3.57[id number] 2.16.840.1.901242.3.57[id number] 2.16.840.1.621370.3.57[id number] 2.16840.1.893361.3.57[id number] 2.840.1.366499.3.57[id number] 2.840.1.485210.3.57[id number] 2.840.1.038905.3.57[id number] 2.840.1.816780.3.57[id number] 2.840.1.848373.3.57[id number] 2.0.1.719761.3.57[id number] 2.16840.1.427272.3.57[id number] 2.840.1.863521.3.57[id number] 2.16840.1.760480.3.57[id number] 2.840.1.570162.3.57[id number] 2..840.1.374570.3.57[id number] 2.16.840.1.544773.3.57[id number] 2..840.1.393401.3.579.2.1259 Social History DateTypeDetailFacilityStart: 09-08-2023 End: 63-28-9093Lpjstyr smoking status NHISEx-smokerNOMS HealthcareStart: 12-03-1980 End: 57-13-6803Evyrsim of tobacco useCurrent smokerNOMS HealthcareStart: 12-03-1980 End: 33-85-5194Jbssxyc of tobacco useCigarette SmokerNOMS HealthcareStart: 09-08-2023 End: 40-29-3955Dmudyiuxrl smoked current (pack per day) - Pyyqaago8WXYI HealthcareStart: 09-08-2023 End: 98-87-5483Rmasksp use and exposureSmokeless tobacco non-userNOMS Healthcare Start: 09-08-2023 End: 01-11-4284Gzrcjmq intakeEx-drinker (finding)[facility]OMS HealthcareStart: 09-08-2023 End: 11-12-2190Rxxdpohekpd, Afraid, Rape, and Kick questionnaire [HARK]NOMS HealthcareWithin the last year, have you been afraid of your partner or ex-partner?NoNOMS HealthcareStart: 53-03-4161Rz a typical week, how many times do you talk on the telephone with family, friends, or neighbors?Patient refused N[facility] HealthcareDo you belong to any clubs or organizations such as amish groups, unions, fraternal or athletic groups, or school groups?YesNOMS HealthcareAre you now , , , , never or living with a partner?DivorcedNOMS HealthcareHow often to you have a drink containing alcohol?NeverNOMS HealthcareHow hard is it for you to pay for the very basics like food, housing, medical care, and heatingNot very hardNOMS HealthcareDo you feel stress - tense, restless, nervous, or anxious, or unable to sleep at night because yourmind is troubled all the time - these days [OSQ] Not at allNOMS Healthcare(I/We) worried whether (my/our) food would run out before (I/we) got money to buy more.Never trueNOMS HealthcareStart: 08-20-2023 Tobacco CommentLast smoked 1-5 yearsNOMS HealthcareStart: 06-49-7540Qxjjulp Commentquit 10 years agoNOMS HealthcareStart: 51-02-7314Snh Assigned At BirthNot on fileNOTX HealthcareHistory of tobacco usePassive smokerNOMS HealthcareSex Female (finding)[facility] Hospitaltart: 16-70-8612Vfv Assigned At [facility] HospitalFePremier Health [facility] Functional Status VirsKwqnwbyywmNblublSyonitsg62-95-0260Kbnsnqz Health Questionnaire 2 item (PHQ- 2) [Reported][facility] InstituteUcgbsptxut75-96-0993Viivqms Health Questionnaire 2 item (PHQ- 2) [Reported][facility] Clinical Notes 12-17-2022 to 05-03-2025 Note Date & DdvbCyivCfbabviy66-48-7930 History of Present illness Narrative* Jose Guadalupe Mejia MD - 05/03/2025 6:04 PM EDTAssociated Problem(s): COPD (chronic obstructive pulmonary disease) (HCC) Breathing unchanged and use albuterol PRN. * Jose Guadlaupe Mejia MD - 05/03/2025 6:04 PM EDTAssociated Problem(s): Former smoker Quit smoking in 2020 and prior 40 plus pack year history. Check LDCT chest. * Jose Guadalupe Mejia MD - 05/03/2025 6:04 PM EDTAssociated Problem(s): MDD (major depressive disorder), recurrent episode, mild Symptoms controlled with paxil and continue. * Jose Guadalupe Mejia MD - 05/03/2025 6:04 PM EDTAssociated Problem(s): Primary hypertension BP controlled and monitor PRN. * Jose Guadalupe Mejia MD - 05/03/2025 6:03 PM EDTAssociated Problem(s): Primary insomnia Not sleeping well and try trazodone. * Jose Guadalupe Mejia MD - 05/03/2025 6:02 PM EDTAssociated Problem(s): Primary osteoarthritis of left knee Continued pain and will need replacement. Follow with ortho. * Jose Guadalupe Mejia MD - 05/03/2025 1:45 PM EDT Images from the original note were not included. Subjective Patient ID: Blanca Butler is a 65 y.o. female who presents [...] lung screening low dose documented in this encounterFreeman Cancer InstituteLtgkeiqxxz49-26-0017 Telephone encounter Note* Telephone Encounter - Hillary Daniels - 03/06/2025 8:51 AM EDT Patient called in asking for a refill on her powder inhaler. [facility] InstituteSincqwolts56-92-3947 Miscellaneous Notes* Telephone Encounter - Hillary Daniels - 03/06/2025 8:51 AM EDT Patient called in asking for a refill on her powder inhaler. documented in this [facility]04-23-2025 Telephone encounter Note* Telephone Encounter - Jose Guadalupe Mejia MD - 01/25/2025 4:22 PM EDT [facility] InstituteXryktcxliw05-86-7489 Miscellaneous Notes* Telephone Encounter - Jose Guadalupe Mejia MD - 01/25/2025 4:22 PM EDT documented in this [facility]02-04-2025 Telephone encounter Note* Telephone Encounter - Afsaneh Morrow MA - 11/08/2024 9:46 AM EST LAKSHMI:09/13/2024 NOV:12/15/2024 [facility] InstituteDhcuiuvlsq32-21-7339 Miscellaneous Notes* Telephone Encounter - Afsaneh Morrow MA - 11/08/2024 9:46 AM EST LAKSHMI:09/13/2024 NOV:12/15/2024 documented in this [facility]01-22-2025 Telephone encounter Note* Telephone Encounter - Afsaneh Morrow MA - 10/26/2024 8:51 AM EST LAKSHMI:09/13/2024 NOV:12/15/2024 [facility] Fnzytndjlt90-38-3119 Miscellaneous Notes* Telephone Encounter - Afsaneh Morrow MA - 10/26/2024 8:51 AM EST LAKSHMI:09/13/2024 NOV:12/15/2024 documented in this encounterFreeman Cancer InstituteJozrbuwica61-39-3074 History of Present illness Narrative* Maisha Wyman NP - 09/13/2024 3:26 PM ESTAssociated Problem(s): Primary hypertension (CMS/HCC) Currently taking Carvedilol 25mg Hydrochlorothiazide 25mg Losartan 100mg Checks BP at home; Averages on log are 100's 70's. Too tightly controlled. Will decrease Losartan to 50mg today. Denies orthostatic changes, dizziness, shortness of breath, swelling in extremities. Given BP log, advised pt to record BP and bring log back with them to next visit. * Maisha Wyman NP - 09/13/2024 3:25 PM ESTAssociated Problem(s): Mixed hyperlipidemia (CMS/HCC) Currently taking Simvastatin 20mg Denies any myalgias. Continue current regimen. * Maisha Wyman NP - 09/13/2024 3:25 PM ESTAssociated Problem(s): Suspected chronic obstructive pulmonary disease based on initial evaluation ( CMS/HCC) Former smoker, smoked for about 40 years. [...] Restriction. Continue Advair daily and albuterol PRN. * Maisha Wyman NP - 09/13/2024 3:00 PM EST Images from the original note were not included. Subjective Patient ID: Blanca Butler is a 64 y.o. female who presents [...] ALBUMIN GLOBULIN RATIO 1.0 Resulting Agency [facility] Is following with ortho and PM. Is [...] Neurological: Negative for dizziness, tremors, syncope, weakness, light- headedness and headaches. Psychiatric/Behavioral: Negative for decreased concentration and suicidal ideas. The patient is notnervous/anxious. Hematological: Does not bruise/bleed easily. Endocrine: Negative [...] losartan (Cozaar) 50 MG tablet Mixed hyperlipidemia ([facility]) - Primary Currently taking Simvastatin 20mg Denies any myalgias. Continue current regimen. Suspected chronic obstructive pulmonary disease based on initial evaluation ([facility]) Former smoker, smoked for about 40 years. [...] (Advair Diskus) 100-50 MCG/ACT aerosol powder Asthma ([facility]) Relevant Medications Fluticasone-Salmeterol (Advair Diskus) 100-50 MCG/ACT aerosol powder documented in this [facility]12-10-2024 Instructions* Patient Instructions* Maisha Wyman NP - 09/13/2024 3:00 PM EST Start using Advair diskus DAILY. Use Albuterol NEEDED. documented in this [facility]11-20-2024 Telephone encounter Note* Telephone Encounter - Afsaneh Morrow MA - 08/24/2024 10:45 AM EST LAKSHMI:06/14/2024 NOV:09/13/2024 [facility] InstituteQymqteljnm03-19-1712 Miscellaneous Notes* Telephone Encounter - Afsaneh Morrow MA - 08/24/2024 10:45 AM EST LAKSHMI:06/14/2024 NOV:09/13/2024 documented in this [facility]11-14-2024 Telephone encounter Note* Telephone Encounter - Afsaneh Morrow MA - 08/18/2024 11:55 AM EST LAKSHMI:06/14/2024 NOV:09/04/2024 [facility] InstituteWfbqjtttfk93-44-6907 Miscellaneous Notes* Telephone Encounter - Afsaneh Morrow MA - 08/18/2024 11:55 AM EST LAKSHMI:06/14/2024 NOV:09/04/2024 documented [facility] [facility] History of Present illness Narrative* RAJESH Mina - 08/16/2024 1:30 PM EST Images from the original note were not included. HISTORY OF PRESENT ILLNESS: EST PT Blanca Butler is an 64 y.o. @ female. EST [...] morning with a full glass of water, dragan empty stomach, and do not take anything [...] 500 MG capsule as directed Orally Evening [place] Oil 1000 MG capsule as directed Orally [...] drink Frequency of Binge Drinking: Never IMAGING: [address] [address] XRay Report Signed Patient: BLANCA BUTLER MR#: [id number] : 1960 Acct:[id number] Age/Sex: 64 / F ADM Date: 07/29/24 Loc: RAD Attending Dr: MAISHA WYMAN Ordering Physician: MAISHA WYMAN Date of Service: 07/29/24 Procedure(s): XR knee standing BI Accession Number(s): [id number] cc: MAISHA WYMAN [address] [address] Patient Name: BLANCA BUTLER MRN: [id number] date: 1960 Sex: F Assigned Patient Location: RAD Current Patient Location: Accession/Order Number: [id number] Exam Date: 07/29/2024 14:10 Report Date: 08/01/2024 [...] marked narrowing of the medial compartment with eens-mf-jmir articulation. Large periarticular degenerative osteophytes involving the medial and lateral compartments. SOFT TISSUES: Large flocculent calcification along superior medial margin of the knee joint; heterotopic bone formation versus loose body within the joint capsule. OTHER: Negative. XR/XR knee standing BI IMPRESSION: RIGHT CONCLUSION: Marked degenerative joint disease. LEFT CONCLUSION: Marked degenerative joint disease. Electronically authenticated by: SLIME CAROLINA Date: 08/01/2024 06:46 Procedures No orders of the defined types were placed in this encounter. ASSESSMENT: ICD-10-CM 1. Acute pain of left knee M25.562 PLAN: F/U Dr. Mcconnell s/p dental appt to discuss need for possible: (L) TKA with stems and augments- recommend new AP and lateral xray in office Reviewed WB xray from [facility], severe DJD with bone loss Medial [...] for requiring urgent evaluation. documented in this encounterFreeman Cancer [id number] Telephone encounter Note* Telephone Encounter - Afsaneh Morrow MA - 08/16/2024 11:08 AM EST LAKSHMI:06/14/2024 NOV:09/13/2024 [facility] [id number] Miscellaneous Notes* Telephone Encounter - Afsaneh Morrow MA - 08/16/2024 11:08 AM EST LAKSHMI:06/14/2024 NOV:09/13/2024 documented in this [facility]10-22-2024 Telephone encounter Note* Telephone Encounter - Afsaneh Morrow MA - 07/26/2024 3:59 PM EDT Pt states she used to be directed to take her paxil 20 mg and split it in half, she wanted to explain to you she does not actually take the 20 mg She also would like a refill on her Oxycodone. LAKSHMI:06/14/2024 NOV:09/13/2024 [facility] [id number] Miscellaneous Notes* Telephone Encounter - Afsaneh Morrow MA - 07/26/2024 3:59 PM EDT Pt states she used to be directed to take her paxil 20 mg and split it in half, she wanted to explain to you she does not actually take the 20 mg She also would like a refill on her Oxycodone. LAKSHMI:06/14/2024 NOV:09/13/2024 documented in this [facility]09-10-2024 History of Present illness Narrative* Maisha Wyman, FREDO - 06/14/2024 3:28 PM EDTAssociated Problem(s): Suspected chronic obstructive pulmonary disease based on initial evaluation ([facility]/HCC) Former smoker, smoked for about 40 years. Reports intermittent wheezing. No formal testing/diagnosis of obstructive lung disease. Albuterol as needed. Dr. Chambers ordered PFT's in March 2024- pt has still yet to complete. Reprinted order today. * Maisha Wyman NP - 06/14/2024 3:27 PM EDTAssociated Problem(s): Mixed hyperlipidemia (CMS/HCC) Currently taking Simvastatin 20mg Denies any myalgias. Most recent Lipid Panel in 03/2024 WNL Continue current regimen. * Maisha Wyman NP - 06/14/2024 3:24 PM EDTAssociated Problem(s): Chronic pain of left knee Chronic left knee pain due to degenerative arthritis, uses a walker to ambulate. Pain is persistentwith periods of worsening pain. She is using nabumetone along with oxycodone as needed for pain. Last xrays done in 2020. Ordered new xrays today. Will refer to ortho. * Maisha Wyman NP - 06/14/2024 3:20 PM EDTAssociated Problem(s): Chronic left shoulder pain Work up revealed rotator cuff tear. Was referred to ortho, was told she needs shoulder replacement.Stopped going after she decided she did not want surgery. Would like referral to a different ortho for second opinion. Is seeing Dr. Ingram @ Pain management. Is getting injections and taking Gabapentin. Will discuss with them oxycodone. * Maisha Wyman NP - 06/14/2024 3:18 PM EDTAssociated Problem(s): Primary hypertension (CMS/HCC) Currently taking Carvedilol 25mg Hydrochlorothiazide 25mg Losartan 100mg Does not check BP at home; Denies orthostatic changes, dizziness, shortness of breath, swelling in extremities. Continue current regimen. Given BP log, advised pt to record BP and bring log back with them to next visit. * Maisha Wyman NP - 06/14/2024 3:09 PM EDTAssociated Problem(s): Symptoms of upper respiratory infection (URI) [...] BREATH, GO TO THE NEAREST EMERGENCY DEPARTMENT. * Maisha Wyman NP - 06/14/2024 3:00 PM EDT Images from the original note were not included. Subjective Patient ID: Blanca Butler is a 64 y.o. female who presents [...] GLOBULIN RATIO 1.0 Resulting Agency [facility] Review of Systems Constitutional: Negative for [...] Neurological: Negative for dizziness, tremors, syncope, weakness, light- headedness and headaches. Psychiatric/Behavioral: Negative for decreased concentration and suicidal ideas. The patient is notnervous/anxious. Hematological: Does not bruise/bleed easily. Endocrine: Negative [...] List Items Addressed This Visit Primary hypertension (CMS/[facility]) - Primary Currently taking Carvedilol 25mg Hydrochlorothiazide [...] XR knees anteroposterior standing bilateral Mixed hyperlipidemia ([facility]) Currently taking Simvastatin 20mg Denies any myalgias. Most recent Lipid Panel in 03/2024 WNL Continue current regimen. Suspected chronic obstructive pulmonary disease based on initial evaluation ([facility]) Former smoker, smoked for about 40 years. [...] 50 MCG/ACT nasal spray documented in this encounterFreeman Cancer [id number] Instructions* Patient Instructions* Maisha Wyman NP - 06/14/2024 3:00 PM [...] THE NEAREST EMERGENCY DEPARTMENT. documented in this encounterFreeman Cancer [id number] NotePROCEDURE: XR HIP RT 2 3V W PELVIS [...] of hardware failure. Electronically authenticated by: SLIME CAROLINA Date: 2022-12-17 16:26[facility] Diagnosis Chronic left shoulder pain Pain in joint, shoulder region Chronic pain of left knee documented in this encounter [facility]* Diagnosis Suspected chronic obstructive pulmonary disease based on initial evaluation (CMS/HCC)- Primary documented in this encounter [facility]Evaluation note* Diagnosis Suspected chronic obstructive pulmonary disease based on initial evaluation ([facility])- Primary Mild intermittent asthma without complication ([facility]) documented [facility]* [...] obstructive pulmonary disease based on initial evaluation (CMS/[facility]) Pre-operative clearance- Primary Unspecified pre-operative examination Primary [...] of left knee documented in this encounter [facility] HealthcareEvaluation note* Diagnosis Primary hypertension (CMS/HCC)- [...] obstructive pulmonary disease based on initial evaluation (CMS/[facility]) Pre-operative clearance- Primary Unspecified pre-operative examination Primary hypertension (CMS/HCC)- Primary Unspecified essential hypertension Symptoms of upper respiratory infection (URI) Chronic left shoulder pain Pain in joint, shoulder region Mixed hyperlipidemia (CMS/HCC) Mixed hyperlipidemia Suspected chronic obstructive pulmonary disease based on initial evaluation (CMS/[facility]) Chronic pain of left knee Osteoarthritis of both knees, unspecified osteoarthritis type- Primary documented in this encounter [facility]Evaluation note* Diagnosis Primary hypertension (CMS/HCC)- [...] right hip replacement documented [facility]* [...] obstructive pulmonary disease based on initial evaluation (CMS/[facility]) Pre-operative clearance- Primary Unspecified pre-operative examination Primary [...] of left knee documented in this encounter [facility]Evaluation [facility]* Diagnosis Primary hypertension (CMS/HCC)- [...] obstructive pulmonary disease based on initial evaluation (CMS/[facility]) Pre-operative clearance- Primary Unspecified pre-operative examination Primary [...] obstructive pulmonary disease based on initial evaluation (CMS/[facility]) Pre-operative clearance- Primary Unspecified pre-operative examination Primary [...] osteoporosis type (CMS/HCC) documented in this encounter [facility]* Diagnosis Primary hypertension (CMS/HCC)- [...] osteoporosis type (CMS/HCC) documented in this encounter [facility]* Diagnosis Primary hypertension (CMS/HCC)- [...] of left knee documented in this encounter [facility]* Diagnosis Primary hypertension (CMS/HCC)- Primary Unspecified essential hypertension Symptoms of upper respiratory infection (URI) Chronic left shoulder pain Pain in joint, shoulder region Mixed hyperlipidemia (CMS/HCC) Mixed hyperlipidemia Suspected chronic obstructive pulmonary disease based on initial evaluation ([facility]) Chronic pain of left knee documented in this encounter [facility]Evaluation [facility]* Diagnosis Primary hypertension (CMS/HCC) Unspecified essential hypertension Chronic left shoulder pain Pain in joint, shoulder region Chronic pain of left knee documented in this encounter [facility]Evaluation [facility]* Diagnosis Primary hypertension (CMS/HCC)- [...] obstructive pulmonary disease based on initial evaluation (CMS/[facility]) Pre-operative clearance- Primary Unspecified pre-operative examination Primary hypertension (CMS/HCC)- Primary Unspecified essential hypertension Symptoms of upper respiratory infection (URI) Chronic left shoulder pain Pain in joint, shoulder region Mixed hyperlipidemia (CMS/HCC) Mixed hyperlipidemia Suspected chronic obstructive pulmonary disease based on initial evaluation (CMS/HCC) Chronic pain of left knee Mixed hyperlipidemia (CMS/HCC)- Primary Mixed hyperlipidemia Suspected chronic obstructive pulmonary disease based on initial evaluation ([facility]/HCC) Mild intermittent asthma without complication (CMS/HCC) Primary hypertension (CMS/HCC) Unspecified essential hypertension Osteoporosis without current pathological fracture, unspecified osteoporosis type (CMS/HCC) Chronic left shoulder pain Pain in joint, shoulder region Chronic pain of left knee Suspected chronic obstructive pulmonary disease based on initial evaluation ([facility]) Hyperuricemia Other abnormal blood chemistry Primary hypertension (CMS/HCC) Unspecified essential hypertension documented in this encounter [facility]* Diagnosis Primary hypertension (CMS/HCC)- [...] obstructive pulmonary disease based on initial evaluation ([facility]) Pre-operative clearance- Primary Unspecified pre-operative examination Primary hypertension (CMS/HCC)- Primary Unspecified essential hypertension Symptoms of upper respiratory infection (URI) Chronic left shoulder pain Pain in joint, shoulder region Mixed hyperlipidemia (CMS/HCC) Mixed hyperlipidemia Suspected chronic obstructive pulmonary disease based on initial evaluation ([facility]) Chronic pain of left knee Mixed hyperlipidemia (CMS/HCC)- Primary Mixed hyperlipidemia Suspected chronic obstructive pulmonary disease based on initial evaluation ([facility]) Mild intermittent asthma without complication ([facility]) Primary hypertension ([facility]/HCC) Unspecified essential hypertension Osteoporosis without current pathological fracture, unspecified osteoporosis type ([facility]/HCC) Chronic left shoulder pain Pain in joint, shoulder region Chronic pain of left knee documented in this encounter [facility]Evaluation [facility]* Diagnosis Primary hypertension (CMS/HCC)- Primary [...] obstructive pulmonary disease based on initial evaluation ([facility]) Pre-operative clearance- Primary Unspecified pre-operative examination Primary [...] of left knee documented in this encounter [facility]Evaluation [facility]* Diagnosis Primary hypertension (CMS/HCC)- Primary [...] obstructive pulmonary disease based on initial evaluation (CMS/[facility]) Pre-operative clearance- Primary Unspecified pre-operative examination Primary hypertension (CMS/HCC)- Primary Unspecified essential hypertension Symptoms of upper respiratory infection (URI) Chronic left shoulder pain Pain in joint, shoulder region Mixed hyperlipidemia (CMS/HCC) Mixed hyperlipidemia Suspected chronic obstructive pulmonary disease based on initial evaluation (CMS/HCC) Chronic pain of left knee Mixed hyperlipidemia (CMS/HCC)- Primary Mixed hyperlipidemia Suspected chronic obstructive pulmonary disease based on initial evaluation ([facility]/HCC) Mild intermittent asthma without complication (CMS/HCC) Primary hypertension (CMS/HCC) Unspecified essential hypertension Osteoporosis without current pathological fracture, unspecified osteoporosis type (CMS/HCC) Primary hypertension (CMS/HCC)- Primary Unspecified essential hypertension MDD (major depressive disorder), recurrent episode, mild (HCC) (CMS/[facility]) Chronic obstructive pulmonary disease, unspecified COPD type [...] of left knee documented in this encounter [facility]Evaluation [facility]* Diagnosis Primary hypertension (CMS/HCC)- Primary [...] obstructive pulmonary disease based on initial evaluation (CMS/[facility]) Pre-operative clearance- Primary Unspecified pre-operative examination Primary [...] mild (HCC) (CMS/HCC) documented in this encounter [facility]Evaluation [facility]* Diagnosis Primary hypertension (CMS/HCC)- Primary [...] obstructive pulmonary disease based on initial evaluation (CMS/[facility]) Pre-operative clearance- Primary Unspecified pre-operative examination Primary hypertension (CMS/HCC)- Primary Unspecified essential hypertension Symptoms of upper respiratory infection (URI) Chronic left shoulder pain Pain in joint, shoulder region Mixed hyperlipidemia (CMS/HCC) Mixed hyperlipidemia Suspected chronic obstructive pulmonary disease based on initial evaluation (CMS/HCC) Chronic pain of left knee Mixed hyperlipidemia (CMS/HCC)- Primary Mixed hyperlipidemia Suspected chronic obstructive pulmonary disease based on initial evaluation (CMS/[facility]) Mild intermittent asthma without complication (CMS/HCC) Primary [...] of left knee documented in this encounter [facility]Evaluation [facility]* Diagnosis Primary hypertension (CMS/HCC)- Primary [...] obstructive pulmonary disease based on initial evaluation ([facility]) Pre-operative clearance- Primary Unspecified pre-operative examination Primary hypertension (CMS/HCC)- Primary Unspecified essential hypertension Symptoms of upper respiratory infection (URI) Chronic left shoulder pain Pain in joint, shoulder region Mixed hyperlipidemia (CMS/HCC) Mixed hyperlipidemia Suspected chronic obstructive pulmonary disease based on initial evaluation ([facility]) Chronic pain of left knee Mixed hyperlipidemia (CMS/HCC)- Primary Mixed hyperlipidemia Suspected chronic obstructive pulmonary disease based on initial evaluation ([facility]) Mild intermittent asthma without complication ([facility]/HCC) Primary hypertension (CMS/HCC) Unspecified essential hypertension Osteoporosis without current pathological fracture, unspecified osteoporosis type ([facility]/HCC) Primary hypertension (CMS/HCC)- Primary Unspecified essential hypertension [...] obstructive pulmonary disease based on initial evaluation ([facility]) Mild intermittent asthma without complication (CMS/HCC) documented in this encounter [facility] HealthcareEvaluation note* Diagnosis Primary hypertension- Primary Unspecified [...] obstructive pulmonary disease based on initial evaluation ([facility]) Pre-operative clearance- Primary Unspecified pre-operative examination Primary hypertension- Primary Unspecified essential hypertension Symptoms of upper respiratory infection (URI) Chronic left shoulder pain Pain in joint, shoulder region Mixed hyperlipidemia Mixed hyperlipidemia Suspected chronic obstructive pulmonary disease based on initial evaluation ([facility]) Chronic pain of left knee Mixed hyperlipidemia- Primary Mixed hyperlipidemia Suspected chronic obstructive pulmonary disease based on initial evaluation ([facility]) Mild intermittent asthma without complication ([facility]) Primary hypertension Unspecified essential hypertension Osteoporosis without current pathological fracture, unspecified osteoporosis type Primary hypertension- Primary Unspecified essential hypertension MDD (major depressive disorder), recurrent episode, mild Chronic obstructive pulmonary disease, unspecified COPD type ([facility]) Primary osteoarthritis of left knee Rotator cuff [...] of left knee documented in this encounter [facility] HealthcareEvaluation note* Diagnosis Primary hypertension- Primary Unspecified [...] to health documented in this encounter [facility]* Diagnosis Primary hypertension- Primary Unspecified [...] of tobacco use, presenting hazards to health Chronic left shoulder pain Pain in joint, shoulder region Chronic pain of left knee documented in this encounter [facility] HealthcareEvaluation note* Diagnosis Primary hypertension- Primary Unspecified [...] of tobacco use, presenting hazards to health Chronic left shoulder pain Pain in joint, shoulder region Chronic pain of left knee documented in this encounter [facility]* Diagnosis Onset Date Resolution Status Admit Date Medicare annual wellness visit, [facility]2024 2:41pm [facility] Work Phone: Reason for referral (narrative)No reason for referral information availableDayton Osteopathic Hospital Work Phone: Summary Purpose Family History No Family History Records FoundNo Family History Records FoundNo Family History Records FoundNo Family History Records Found Advance Directives Advance Directive Response Recorded Date/ Time Advance Directives No June 01, 2025 3:44pm Reason for Referral SpecialtyDiagnoses / ProceduresReferred By ContactReferred To Contact Diagnoses Chronic left shoulder pain Chronic pain of left knee Maisha Wyman, FREDO [address] [place] [phone] Referral IDStatusReasonStart DateExpiration DateVisits RequestedVisits [id number] Chief Complaint and Reason for Visit Reason for Visit Admit Date Medicare annual wellness visit, [facility] August 15, 2025 2:41pm Additional Source Comments INFORMATION SOURCE (unrecogn ized section and content) DATE CREATED AUTHOR 02/27/2021 [facility] DATE CREATED AUTHOR AUTHOR'S ORGANIZ ATION 03/13/2023 [facility] DATE CREATED AUTHOR AUTHOR'S ORGANIZ ATION 05/25/2025 [facility] DATE CREATED AUTHOR AUTHOR'S ORGANIZ ATION 06/19/2025 [facility] EPIC Care Teams (unrecognized sec tion and content) Team MemberRelationshipSpecialtyStart DateEnd Date Shaikh Chambers MD PCP - GeneralInternal Medicine05/04/23Team MemberRelationshipSpecialtyStart Date End Date Jose Guadalupe Mejia MD [address] [place] [phone] PCP - Generalmi Medicine05/12/24 Maisha Wyman NP [address] [place] [address] [facility]er[facility]05/12/24Team MemberRelationshipSpecialtyStart DateEnd Date Jose Guadalupe Mejia MD [address] [place] [phone] [facility] - [facility]05/12/24 Maisha Wyman NP [address] [place] [phone] [facility] Medicine05/12/24Team MemberRelationshipSpecialtyStart DateEnd Date Jose Guadalupe Mejia MD [address] [place] [phone] PCP - [facility]North[facility]05/12/24 Maisha Wyman NP [address] [address] Nurse Pract[facility] Medicine05/12/24Team MemberRelationshipSpecialtyStart DateEnd Date Jose Guadalupe Mejia MD [address] [place] [address] [facility] - [facility]mi[facility]05/12/24 Maisha Wyman, FREDO [address] [place] [address] Nurse Pract[facility]05/12/24Team MemberRelationshipSpecialtyStart DateEnd Date Unallocated, Scott Nicholson MD [address] [place] [address] PCP - [facility]North[facility]07/25/24 Maisha Wyman, FREDO [address] [place] [address] Nurse Pract[facility]er[facility]05/12/24Team MemberRelationshipSpecialtyStart DateEnd Date Jose Guadalupe Mejia MD [address] [place] [address] PCP - [facility]North[facility]08/04/24 Maisha Wyman, FREDO [address] [place] [address] Nurse Pract[facility]er[facility]05/12/24Team MemberRelationshipSpecialtyStart DateEnd Date Jose Guadalupe Mejia MD [address] [place] [address] PCP - [facility]North[facility]08/04/24 Maisha Wyman, FREDO [address] [place] [address] Nurse Pract[facility]er[facility]05/12/24Team MemberRelationshipSpecialtyStart DateEnd Date Jose Guadalupe Mejia MD [address] [place] [phone] PCP - [facility]08/04/24 Maisha Wyman NP [address] [place] [address] Nurse Pract[facility]er[facility]05/12/24Team MemberRelationshipSpecialtyStart DateEnd Date Jose Guadalupe Mejia MD [address] [place] [phone] PCP - [facility]08/04/24 Maisha Wyman NP [address] [place] [address] Nurse Pract[facility]er[facility]05/12/24Team MemberRelationshipSpecialtyStart DateEnd Date Jose Guadalupe Mejia MD [address] [place] [address] PCP - [facility]05/12/24 Maisha Wyman NP [address] [place] [address] Nurse [facility]05/12/24Team MemberRelationshipSpecialtyStart DateEnd Date Jose Guadalupe Mejia MD [address] [place] [address] PCP - [facility]08/04/24 Maisha Wyman, FREDO [address] [place] [address] Nurse [facility]05/12/24Team MemberRelationshipSpecialtyStart DateEnd Date Jose Guadalupe Mejia MD [address] [place] [address] PCP - [facility]08/04/24 Maisha Wyman, FREDO [address] [place] [address] Nurse [facility]05/12/24Team MemberRelationshipSpecialtyStart DateEnd Date Jose Guadalupe Mejia MD [address] [place] [address] PCP - [facility]08/04/24 Maisha Wyman, FREDO [address] [place] [address] Nurse [facility]05/12/24Team MemberRelationshipSpecialtyStart DateEnd Date Jose Guadalupe Mejia MD [address] [place] [address] PCP - [facility]05/12/24 Maisha Wyman, FREDO [address] [place] [address] [facility]/12/24Team MemberRelationshipSpecialtyStart DateEnd Date Jose Guadalupe Mejia MD [address] [place] [address] PCP - [facility]05/12/24 Maisha Wyman NP [address] [place] [address] [facility]05/12/24Team MemberRelationshipSpecialtyStart DateEnd Date Jose Guadalupe Mejia MD [address] [place] [address] PCP - [facility]05/12/24 Maisha Wyman NP [address] [place] [address] [facility]05/12/24Team MemberRelationshipSpecialtyStart DateEnd Date Jose Guadalupe Mejia MD [address] [place] [address] PCP - [facility]05/12/24 Maisha Wyman NP [address] [place] [address] Nurse [facility]05/12/24Team MemberRelationshipSpecialtyStart DateEnd Date Jose Guadalupe Mejia MD [address] [place] [address] PCP - [facility]08/04/24 Maisha Wyman, FREDO [address] [place] [address] Nurse [facility]05/12/24Team MemberRelationshipSpecialtyStart DateEnd Date Jose Guadalupe Mejia MD [address] [place] [address] PCP - [facility]08/04/24 Maisha Wyman, FREDO [address] [place] [address] Nurse [facility]05/12/24Team MemberRelationshipSpecialtyStart DateEnd Date Jose Guadalupe Mejia MD [address] [place] [address] PCP - [facility]08/04/24 Maisha Wyman, FREDO [address] [place] [address] Nurse [facility]05/12/24Team MemberRelationshipSpecialtyStart DateEnd Date Jose Guadalupe Mejia MD [address] [place] [address] PCP - [facility]08/04/24 Shaikh Chambers MD [address] [place] [address] PCP - [facility]10/05/24 Maisha Wyman TITLE INSURANCE SALES REPRESENTATIVE [facility]05/12/24Team MemberRelationshipSpecialtyStart DateEnd Date Jose Guadalupe Mejia MD [address] [place] [address] PCP - [facility]08/04/24 Shaikh Chambers MD [address] [place] [address] PCP - [facility]10/05/24 Maisha Wyman NP [facility]05/12/24Team MemberRelationshipSpecialtyStart DateEnd Date Jose Guadalupe Mejia MD [address] [place] [address] PCP - [facility]08/04/24 Shaikh Chambers MD [address] [place] [address] PCP - [facility]10/05/24 Maisha Wyman NP [facility]05/12/24Team MemberRelationshipSpecialtyStart DateEnd Date Jose Guadalupe Mejia MD [address] [place] [address] [facility]24 Shaikh Chambers MD [address] [place] [address] PCP - [facility] FERNANDEZ10/05/24 Maisha Wyman, TITLE INSURANCE SALES REPRESENTATIVE [facility]05/12/24Team MemberRelationshipSpecialtyStart DateEnd Date Jose Guadalupe Mejia MD [address] [place] [address] [facility] - [facility]08/04/24 Shaikh Chambers MD [address] [place] [address] PCP - [facility] FERNANDEZ10/05/24 Maisha Wyman, FREDO [facility]05/12/24Team MemberRelationshipSpecialtyStart DateEnd Date Jose Guadalupe Mejia MD [address] [place] [address] PCP - [facility]08/04/24 Shaikh Chambers MD [address] [place] [address] PCP Daryl Lenz MA10/05/24 Maisha Wyman NP [facility]05/12/24Team MemberRelationshipSpecialtyStart DateEnd Date Jose Guadalupe Mejia MD [address] [place] [address] [facility]CP - [facility]08/04/24 Shaikh Chambers MD [address] [place] [address] PCP - Yoanna FERNANDEZ10/05/24 Maisha Wyman NP [facility]05/12/24Team MemberRelationshipSpecialtyStart DateEnd Date Jose Guadalupe Mejia MD [address] [place] [address] [facility]CP - [facility]08/04/24 Shaikh Chambers MD [address] [place] [address] PCP - Yoanna FERNANDEZ10/05/24 Maisha Wyman NP [facility]05/12/24Team MemberRelationshipSpecialtyStart DateEnd Date Jose Guadalupe Mejia MD [address] [place] [address] PCP - [facility]08/04/24 Shaikh Chambers MD [address] [place] [address] PCP - [facility] ID10/05/24 Maisha Wyman NP [facility]05/12/24Team MemberRelationshipSpecialtyStart DateEnd Date Jose Guadalupe Mejia MD [address] [place] [address] PCP - [facility]08/04/24 Shaikh Chambers MD [address] [place] [address] PCP - [facility]anna FERNANDEZ10/05/24 Maisha Wyman NP [facility]05/12/24Team MemberRelationshipSpecialtyStart DateEnd Date Unallocated, Scott Nicholson MD [address] [place] [address] PCP - [facility]07/25/2410/30/24 Jose Guadalupe Mejia MD [address] [place] [address] PCP - [facility]08/04/24 Shaikh Chambers MD [address] [place] [address] PCP - Yoanna FERNANDEZ Maisha Wyman NP [facility]05/12/24Team MemberRelationshipSpecialtyStart DateEnd Date Shaikh Chambers MD PCP - GeneralInternal Medicine Jose Guadalupe Mejia MD PCP - GeneralFamily Medicine05/12/2410 Unallocated, Scott Nicholson MD [address] [facility] [address] PCP - Generalmily Uipszukh70/21/ Jose Guadalupe Mejia MD PCP - Generalmily Cpumkmqv83/31/24 Shaikh Chambers MD [address] [place] [address] PCP - Kendall ID Maisha Wyman NP [facility]05/12/24Team MemberRelationshipSpecialtyStart DateEnd Date Jose Guadalupe Mejia MD PCP - Generalmily Medicine05/12/2410 Unallocated, Scott Nicholson MD [address] [place] [address] PCP - Generalmily Hxxgzyhd99/21/ Jose Guadalupe Mejia MD PCP - Generalmily Akgkioji05/31/24 Shaikh Chambers MD [address] [place] [address] PCP - Yoanna FERNANDEZ Maisha Wyman NP Nurse PractitionerFamily [facility]05/12/24 Team Status: Active Member Role/Relationship Status Dates Jose Guadalupe Mejia MD Primary Care Provider Active Team Status: Inactive Member Role/Relationship Status Dates Jose Guadalupe Mejia MD Primary Care Provider Active S tart: August 15, 2025 End: August 15, 2025Mar MARITZA Mejiattending ProviderActiveStart: August 15, 2025 End: August 15, 2025 Reason for Visit (unrecogniz ed section and content) ReasonOnset DateCommentsMed Cftfsb444ReasonOnset DateCommentsMed Refill 4ReasonCommentsPainSpecialtyDiagnoses / ProceduresReferred By Contact Referred To ContactOrthopaedic Surgery Diagnoses Osteoarthritis of both knees, unspecified osteoarthritis type Maisha Wyman NP [address] [place] [address] Phone: tel: fax: Duncan Bradshaw PA [address] [address] Phone: tel: fax: Referral IDStatusReasonStart DateExpiration DateVisits RequestedVisits [id number] Specialty Services Required [id number] DateCommentsMed Qfydlk184ReasonOnset Date CommentsMed Frlvbn814ReasonOnset DateCommentsMed Vvxmdu764Reason Onset DateCommentsMed Fuvaks944ReasonOnset DateCommentsMed Refill 4ReasonCommentsFollow-upMed refillsURIReasonCommentsMed RefillReason Onset DateCommentsMed Zyhorw34/ReasonOnset DateCommentsMed Refill 11/08/2024ReasonOnset DateCommentsMed Tfwgzu50/ReasonOnset DateComments Med Jrgxfj5501/23/2025ReasonOnset DateCommentsMed Xenfvw29ReasonOnset Date CommentsMed Eksrjn70/11/2024ReasonOnset DateCommentsMed Jtbjlj5103/28/2025Reason Onset DateCommentsMed Pksnvu63ReasonOnset DateCommentsMed Refill 04/26/2025ReasonCommentsFollow-ua2tAolhqsGxqvj DateCommentsMed Mqrtma3905/29/2025 ReasonOnset DateCommentsMed Rsxasi7005/29/2025 Goals (unrecognized section and content) Goals may be documented in a n alternate section FOR RECORDS PERTAINING TO PATIENTS WHO ARE [...] BE BASED ON THE PRIMARY CLINICAL RECORDS. [facility] [employer] [facility]. provides no warranty or guarantee of the accuracy or completeness of information in this document.
--- NOTE | 2025-08-30 12:55 | PM.CN ---
Consult Note: HPI Data of Consult Patient: known to practice within the last 3 years Consult date: 05/25/25 Requesting Physician: Deysi Zhou NP Primary Care Provider: Jose Guadalupe Villafuerte MD Consult Narrative Reason for consult: neck, left arm, left shoulder pain Narrative: 65 year old female presents for evaluation and management of chronic neck and left shoulder pain. pain today 8/10 sharping aching with numbness, tingling, weakness of left shoulder. pain increasing to 10/10 with lifting and ROM. utilizing tylenol, nabumetone, and gabapentin with benefit without side effects. Since last visit patient was not evaluated by orthopedics, states they did not call her despite our records showing they reached out to her 3 times. Patient states she was never going to see them as she cannot undergo surgery due to living alone. Patient requesting a left shoulder injection for pain relief, as prior injection was helpful per pt. cc:: CC: Deysi Zhou NP Review of Systems ROS Musculoskeletal Reports: neck pain and joint pain Meds Home Medications and Allergies Home Medications ?Medication ?Instructions ?Recorded ?Confirmed ?Type acetaminophen 325 mg tablet 650 mg PO Q6H PRN pain 06/22/23 05/15/25 History (Tylenol) nabumetone 500 mg tablet 500 mg PO BID 06/22/23 05/15/25 History oxycodone 5 mg capsule 5 mg PO BID 06/22/23 05/15/25 History TUMERIC QDAY 06/24/23 History Vitamin B-Complex QDAY 06/24/23 History alendronate 35 mg tablet 35 mg PO QWEEK 06/24/23 05/15/25 History allopurinol 100 mg tablet 100 mg PO BID 06/24/23 05/15/25 History ascorbate calcium (vitamin C) 500 500 mg PO DAILY 06/24/23 05/15/25 History mg tablet bromelains 375 mg capsule mg PO 06/24/23 History calcium carb-ergocalciferol (vit tab PO 06/24/23 History D2) 600 mg calcium-200 unit tablet carvedilol 25 mg tablet (Coreg) 25 mg PO Q12H 06/24/23 05/15/25 History cholecalciferol (vitamin D3) 50 50 mcg PO DAILY 06/24/23 05/15/25 History mcg (2,000 unit) tablet (D3 DOTS) cinnamon bark 500 mg capsule 1,000 mg PO DAILY 06/24/23 05/15/25 History (Cinnamon) coenzyme Q10 100 mg capsule (Co 200 mg PO DAILY 06/24/23 05/15/25 History Q-10) cranberry extract 500 mg capsule 500 mg PO DAILY 06/24/23 05/15/25 History evening primrose oil 500 mg capsule 500 mg PO DAILY 06/24/23 05/15/25 History famotidine 20 mg tablet (Pepcid) 20 mg PO DAILY 06/24/23 05/15/25 History garlic 1,000 mg capsule (garlic 1,000 mg PO DAILY 06/24/23 05/15/25 History oil) ginkgo biloba 120 mg tablet 120 mg PO DAILY 06/24/23 05/15/25 History glucosamine sulfate 1,000 mg 1,000 mg PO DAILY 06/24/23 05/15/25 History capsule grape seed extract 50 mg capsule 100 mg PO DAILY 06/24/23 05/15/25 History green tea leaf extract 250 mg 500 mg PO QDAY 06/24/23 05/15/25 History capsule (Green Tea) hydrochlorothiazide 25 mg tablet 25 mg PO DAILY 06/24/23 05/15/25 History loratadine 10 mg capsule 10 mg PO DAILY 06/24/23 05/15/25 History losartan 100 mg tablet 100 mg PO DAILY 06/24/23 05/15/25 History melatonin 10 mg tablet 20 mg PO DAILY 06/24/23 05/15/25 History multivitamin 1 tab PO DAILY 06/24/23 05/15/25 History omega 9-uup-zrk-fish oil 1,000 mg 2 cap PO DAILY 06/24/23 05/15/25 History (120 mg-180 mg) capsule (Fish Oil) paroxetine HCl 10 mg tablet (Paxil) 10 mg PO DAILY 06/24/23 05/15/25 History simvastatin 20 mg tablet 20 mg PO DAILY 06/24/23 05/15/25 History vitamin E 200 unit capsule 200 unit PO DAILY 06/24/23 05/15/25 History gabapentin 300 mg capsule 300 mg PO TID #90 caps 05/03/25 05/15/25 Rx Allergies Allergy/AdvReac Type Severity Reaction Status Date / Time aspirin Allergy Mild unkown Verified 05/15/25 10:10 Exam Constitutional Documenting provider has reviewed patient's vital signs: yes Common normals: no apparent distress, oriented x3 and alert General appearance: cooperative HENMT Common normals: normocephalic, hearing grossly normal bilaterally and moist oral mucous membranes Head and scalp: normocephalic Eye Common normals: PERRL Pupil: PERRL Neck & C-Spine Cervical spine: cervical ROM abnormal, pain with cervical ROM and paracervical muscle tenderness Chest Common normals: inspection of chest normal Respiratory Common normals: normal respiratory effort, no retractions and no use of accessory muscles Extremity Left upper extremity: shoulder joint Other: significant limitation in left shoulder ROM, unable to perform posterior liftoff, apleys scratch test due to pain. positive empty can test and pain with crossbody adduction. moderate pain to palpation Neuro Common normals: oriented x3 Sensorium/orientation: alert Psych Common normals: mental status grossly normal, thought process normal, cooperative, affect normal, speech normal and activity/motor behavior normal Speech: normal speech Thought process: normal thought process Results Imaging cervical MRI: Attestation: I have reviewed the pertinent imaging results. Radiologist's impression: FINDINGS: The bones of the cervical spine are in anatomic alignment. There is preservation of vertebral body heights. There is moderate disc height loss at C5-C6 and C6-C7. There is mild disc height loss at C3-C4 and C4-C5. There is accompanying Modic type III endplate sclerosis. The marrow signal is within normal limits. There is nonspecific T2 hyperintense signal in the posterior aspect of the cervical cord in the midline at C2, C3, and C4. No epidural or paraspinous fluid collection is appreciated. The visualized paraspinous soft tissues are within normal limits. The prevertebral soft tissues are within normal limits. At C2-C3: There is a normal disc, central canal, and neural foramen. At C3-C4: There is a broad-based disc bulge with facet hypertrophy and uncovertebral joint spurring contributing to moderate left and mild right neural foraminal narrowing. There is mild spinal canal narrowing. At C4-C5: There is uncovertebral joint spurring and facet hypertrophy left greater than right. There is severe left and mild right neural foraminal narrowing with mild spinal canal narrowing. At C5-C6: There is a broad-based disc bulge with uncovertebral joint spurring and facet hypertrophy. There is severe right and moderate to severe left neural foraminal narrowing with moderate spinal canal narrowing. At C6-C7: There is a broad-based disc bulge with facet and uncovertebral joint degenerative change. There is moderate right and mild left neural foraminal narrowing with mild spinal canal narrowing. At C7-T1: There is a normal disc, central canal, and neural foramen. Additional Findings Additional findings: If on a controlled substance or opioids, I have checked an [place] report on this patient and there are no aberrancies noted in the prescribing history.??If on a controlled substance or opioid a drug screen was completed and reviewed within the last year, and if there has not been a drug screen completed we ordered one today to monitor higher risk, state monitored pain medication use. As part of providing excellent, safe, comprehensive care, the following was completed at our patient's visit: 1. A medication reconciliation and review to ensure accurate knowledge of current/active medications, including asking our patients to inform us about any nkis-rli-yabruvc medications or herbal remedies/nutritional supplements/alternative remedies. 2. A review to specifically ensure our patients have had annual screening for screening for depression, screening for tobacco use, and screening for unhealthy alcohol use. For concerning screenings had a discussion with the patient, provided patient education, and recommended follow-up with primary care provider when appropriate. If patient noted with a risk of falling, they received education on strength, gait, and balance training to prevent future risk of falling. Portions of this note may have been carried over from the previous visit and updated as appropriate. Please note this office utilizes paper charting in addition to the electronic medical record. A list of current medications, vitals, and PMH is available there as the clinical staff outside of myself do not have access to [employer] charting during the clinic day operations. As part of providing quality comprehensive care the current medications, vitals, and PMH were reviewed in the paper chart. Assessment and Plan Assessment and Plan (1) Osteoarthritis of left shoulder: Qualifiers: Osteoarthritis type: primary Qualified Code(s): M19.012 - Primary osteoarthritis, left shoulder (2) Rotator cuff tear arthropathy of left shoulder: (3) Cervical radiculopathy: (4) Cervical stenosis of spinal canal: Plan The patient has had over 3 months of moderate to severe neck and left shoulder pain with functional impairment and inadequate response to conservative care including NSAIDS (unless there are contraindication such as concurrent blood thinners), multiple oral or topical pain medications, and home exercise program/physical therapy.? Patient has completed >6 weeks of guided home exercise program and/or formal physical therapy program without relief of their symptoms.? The Oswestry Disability Index was completed, and the patient scored a 22%.? repeat left shoulder injection as pt noted moderate relief for 3 months but has since worn off continue gabapentin 300mg tid for cervical radiculopathy and stenosis defer additional orthopedic consult per pt request f/u after injection
== END 2025-08-30 12:12 | disposition home or self-care (01) ==
LOC: PM 12:11
PROVIDERS: PCP Family Medicine; Visit Provider Nurse Practitioner
DX: M19.012 Primary osteoarthritis, left shoulder (principal); M75.102 Unspecified rotator cuff tear or rupture of left shoulder, not specified as traumatic; M54.12 Radiculopathy, cervical region; M48.02 Spinal stenosis, cervical region
CPT/HCPCS: G0463

== ENCOUNTER 2025-09-25 13:00 | Outpatient (OUT) | payer MEDICARE, SELFPAY ==
--- OUTSIDE RECORDS SUMMARY | 2024-04-11 08:40 | XMS_ITS ---
Author Organization [facility] Address [address] [place] [address] Care Team Providers Care Mailer Name Role Phone SHAIKH CHAMBERS Primary Care Provider Fox Good Unavailable [phone] REASON FOR VISIT LEFT SHOULDER RECHECK- CT SCAN Encounters Encounter Location Date Provider Diagnosis [facility] [address] [place] [address] [address] [place] [address] 04/11/2024 Fox Pascual Plan Of Treatment No Information Progress Notes * BUTLERYOUNA LDOB: (65 yo F)Acc No.[id number]:04/11/2024 Patient:?YOU BUTLERNA Rodriguez :?Fox Pascual DODOB:1960???Age:64 Y ???Sex:FemaleDate:04/11/2024hone:[phone]:[address] [place], [place] [phone]:SHAIKH REYES Subjective: * Chief Complaints: * 1 . LEFT SHOULDER RECHECK- CT SCAN. * Medical History: Objective: * Vitals: Assessment: Plan: * Treatment: Forms: * Images: * Electronic signature of Fox Pascual DO on 09/25/2025 at 01:03 PM ESTSign off status: Pending * Provider: Oniel Pascual DO Date: 0 04/11/2024 Generated for Printing/Faxing/eTransmitting on:?09/25/2025 01:03 PM EST
--- OUTSIDE RECORDS SUMMARY | 2025-09-25 13:03 | XMS_ITS | Clinical Summary ---
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 Former yyqbbf8705/03/2025 Assessment & Plan (05/03/2025 6:04 PM EDT): Quit smoking in 2020 and prior 40 plus pack year history. Check LDCT chest. Adcxdrfqaew25/18/2025MDD (major depressive disorder), recurrent episode, mild 12/20/2024 Assessment & Plan (05/03/2025 6:04 PM EDT): Symptoms controlled with paxil and continue. Assessment & Plan (12/20/2024 3:03 PM EDT): Symptoms controlled with paxil and continue. Encounter for long-term (current) use of uwihngdjoun08/18/2025Class 1 obesity due to excess calories with serious comorbidity and body mass index (BMI) of 30.0 to 30.9 in adult12/20/2024 Assessment & Plan (12/20/2024 3:03 PM EDT): Weight loss indicated. Khlciqwbvbib44/18/2025 Assessment & Plan (12/20/2024 3:03 PM EDT): Repeat DEXA. Pre-operative uyssqucwc83/11/2024 Assessment & Plan (03/31/2024 2:44 PM EDT): [...] disease. Order PFTs. Albuterol as needed. Primary vpzusksdpfun17/05/2023 Assessment & Plan (05/03/2025 6:04 PM EDT): [...] Check labs. Rotator cuff arthropathy of left /05/2023 Assessment & Plan (12/20/2024 3:04 PM EDT): [...] Pneumococcal vaccine. Mammogram ordered. Colonoscopy in 2018 Twexdhgazpnv36/05/2023 Assessment & Plan (09/13/2024 3:25 PM EST): [...] as needed for pain. 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 btasvrbaf75/Other chronic pain/ Osteoarthritis of both knees/Hip pain/ Tcfpxs3912/20/2024 Immunizations ImmunizationAdministration DatesNext DueHep B, Adolescent or Iakbpzahq82/22/2011 ,10/18/2010,06/28/2010Influenza, injectable, quadrivalent, preservative free 10/01/2022Tdap10/20/2022Zoster, Yobayiyyhlx98/16/2023 Family History Medical HistoryRelationNameCommentsHeart diseaseFatherBreast cancerMother HypertensionMotherLung cancerMotherRelationNameStatusCommentsFatherDeceased (Age 70) due to MIMotherDeceased Social History Tobacco UseTypesPacks/DayYears UsedDateSmoking Tobacco: LksenySiszgjvkqg901 12/03/1980 - 12/03/2020assive Smoke Exposure: PastSmokeless Tobacco: Never Tobacco Cessation:Counseling [...] the phone with family, friends, or neighbors?Patient pghilnzr38/05/2023How often do you get together with friends or relatives?Once a week09/08/2023How often do you attend methodist or faith services?More than 4 times per year09/08/2023o you belong to any clubs or organizations such as methodist groups, unions, fraternal or athletic chai ups, or school groups?Yes09/08/2023How often do you attend meetings of the clubs or organizations you belong to?More than 4 times per year09/08/2023re you , , , , never , or living with a partner? Ydrqlayd95/05/2023UDIT-CAnswerDate RecordedQ1: How often do you have a [...] heating?Not very hard09/08/2023HQ-2AnswerDate RecordedPatient Health Questionnaire-2 Score0 03/15/2024[facility] [place] [facility] - Occupational Stress QuestionnaireAnswerDate [...] RecordedSex Assigned at BirthNot on fileLegal Sex Cdvfci3312/17/2022 8:27 PM EDTGender IdentityNot on fileSexual OrientationNot on file Last Filed Vital Signs Vital SignReadingTime TakenCommentsBlood Fyazcgpv811/8407 1:49 PM EDT Pyjmv529205/03/2025 1:49 PM PSFAzjhhlgwpba83.2 ??C (97.1 ??F)05/03/2025 1:49 PM EDTRespiratory Pfov435405/03/2025 1:49 PM EDTOxygen Iecsjxsvel97%05/03/2025 1:49 PM EDTInhaled Oxygen Concentration--Ozgyah13.8 kg (167 lb)05/03/2025 1:49 PM EDT Yrajej362.6 cm (5' 4 )05/03/2025 1:49 PM EDTBody Mass Index28.67005/03/2025 1:49 PM EDT Plan of Treatment Not on file Insurance Care Teams Team MemberRelationshipSpecialtyStart DateEnd Date Jose Guadalupe Villafuerte MD PCP - GeneralFamily Zagdgvqx94/31/24 Joanna Wyman NP Nurse Practitionermily Medicine05/12/24
--- OUTSIDE RECORDS SUMMARY | 2025-09-25 13:04 | XMS_ITS | Patient Health Record ---
Author Organization [facility] Address [address] [place] [address] Care Team Providers Care Recessing Machine Operator Name Role Phone ADRIANSHAIKH BLUNT Primary Care Provider Fox Good Unavailable [phone] Reason For Referral No Information Social History Tobacco Use: Social History Observation Description Date Details (start date - stop date) Never Smoker NA - NA Tobacco Control (Standard) Question Answer Notes Tobacco use: Nonsmoker Problems Problem Type SNOMED Code ICD Code Onset Dates Problem Status W/U Status Risk Notes Problem Full thickness rotat or cuff tear (780175741) Complete tear of left rotator cuff, unspecified whether traumatic (M75.122) ActiveconfirmedProblemRotator cuff arthropathy of left shoulder (22062435621561201)Rotator cuff arthropathy of left shoulder (M12.812)Active confirmedProblemInjury of superior glenoid labrum of shoulder joint (905973663) Superior glenoid labrum lesion of left shoulder, initial encounter (S43.432A) Activeconfirmed Plan Of Treatment Pending Test Test Name Order Date CT Scan Shoulder W/O Contrast Left - 732 00 03/14/2024 Insurance Providers Payer Name Payer Address Payer Phone Subscriber Number Group Number Insured Name Patient Relationship to Insured Coverage Start Date Coverage End Date Medicare [employer] [address] [place] [phone] [id number] BLANCA BUTLER Self - patient is the insured
--- OUTSIDE RECORDS SUMMARY | 2025-09-25 13:04 | XMS_ITS | Clinical Summary ---
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 Name Role Phone Unavailable Primary Care Provider Unavailabl e Social History Tobacco UseTypesPacks/DayYears UsedDateSmoking Tobacco: Never Assessed CommentsUnknownSex and Gender InformationValueDate RecordedSex Assigned at Not on fileLegal QbtVsties46/30/2022 12:14 AM EDTGender IdentityNot on file Sexual OrientationNot on file Last Filed Vital Signs Vital SignReadingTime TakenCommentsBlood Pressure--Pulse--Temperature-- Respiratory Rate--Oxygen Saturation--Inhaled Oxygen Concentration--Znbaei26.2 kg (157 lb)03/07/2021 2:23 PM XRPKuhyhq690.6 cm (5' 6 )03/07/2021 2:23 PM EDTBody Mass Index25.3406 2:23 PM EDT Plan of Treatment Not on file
--- NOTE | 2025-09-25 15:17 | PM.CN ---
Consult Note: HPI Data of Consult Patient: known to practice within the last 3 years Consult date: 09/25/25 Requesting Physician: Chikis May MD Primary Care Provider: Jose Guadalupe Villafuerte MD Consult Narrative Reason for consult: left shoulder pain Narrative: 65yof who presents for in office injection. continues to have left shoulder pain. cc:: CC: Chikis May MD Review of Systems ROS Status of ROS 10 or more systems reviewed and unremarkable except as noted in history and below Meds Home Medications and Allergies Home Medications ?Medication ?Instructions ?Recorded ?Confirmed ?Type acetaminophen 325 mg tablet 650 mg PO Q6H PRN pain 06/22/23 05/15/25 History (Tylenol) nabumetone 500 mg tablet 500 mg PO BID 06/22/23 05/15/25 History oxycodone 5 mg capsule 5 mg PO BID 06/22/23 05/15/25 History TUMERIC QDAY 06/24/23 History Vitamin B-Complex QDAY 06/24/23 History alendronate 35 mg tablet 35 mg PO QWEEK 06/24/23 05/15/25 History allopurinol 100 mg tablet 100 mg PO BID 06/24/23 05/15/25 History ascorbate calcium (vitamin C) 500 500 mg PO DAILY 06/24/23 05/15/25 History mg tablet bromelains 375 mg capsule mg PO 06/24/23 History calcium carb-ergocalciferol (vit tab PO 06/24/23 History D2) 600 mg calcium-200 unit tablet carvedilol 25 mg tablet (Coreg) 25 mg PO Q12H 06/24/23 05/15/25 History cholecalciferol (vitamin D3) 50 50 mcg PO DAILY 06/24/23 05/15/25 History mcg (2,000 unit) tablet (D3 DOTS) cinnamon bark 500 mg capsule 1,000 mg PO DAILY 06/24/23 05/15/25 History (Cinnamon) coenzyme Q10 100 mg capsule (Co 200 mg PO DAILY 06/24/23 05/15/25 History Q-10) cranberry extract 500 mg capsule 500 mg PO DAILY 06/24/23 05/15/25 History evening primrose oil 500 mg capsule 500 mg PO DAILY 06/24/23 05/15/25 History famotidine 20 mg tablet (Pepcid) 20 mg PO DAILY 06/24/23 05/15/25 History garlic 1,000 mg capsule (garlic 1,000 mg PO DAILY 06/24/23 05/15/25 History oil) ginkgo biloba 120 mg tablet 120 mg PO DAILY 06/24/23 05/15/25 History glucosamine sulfate 1,000 mg 1,000 mg PO DAILY 06/24/23 05/15/25 History capsule grape seed extract 50 mg capsule 100 mg PO DAILY 06/24/23 05/15/25 History green tea leaf extract 250 mg 500 mg PO QDAY 06/24/23 05/15/25 History capsule (Green Tea) hydrochlorothiazide 25 mg tablet 25 mg PO DAILY 06/24/23 05/15/25 History loratadine 10 mg capsule 10 mg PO DAILY 06/24/23 05/15/25 History losartan 100 mg tablet 100 mg PO DAILY 06/24/23 05/15/25 History melatonin 10 mg tablet 20 mg PO DAILY 06/24/23 05/15/25 History multivitamin 1 tab PO DAILY 06/24/23 05/15/25 History omega 7-zeu-tan-fish oil 1,000 mg 2 cap PO DAILY 06/24/23 05/15/25 History (120 mg-180 mg) capsule (Fish Oil) paroxetine HCl 10 mg tablet (Paxil) 10 mg PO DAILY 06/24/23 05/15/25 History simvastatin 20 mg tablet 20 mg PO DAILY 06/24/23 05/15/25 History vitamin E 200 unit capsule 200 unit PO DAILY 06/24/23 05/15/25 History gabapentin 300 mg capsule 300 mg PO TID #90 caps 05/03/25 05/15/25 Rx gabapentin 300 mg capsule 300 mg PO BID #60 caps 09/13/25 Rx Allergies Allergy/AdvReac Type Severity Reaction Status Date / Time aspirin Allergy Mild unkown Verified 05/15/25 10:10 Exam Narrative Exam Narrative: Psych-alert and oriented x 3.? Attentive and appropriate, constitutionally normal, displays normal mood and affect per situation.? There are no obvious deficits in memory, reasoning, or intellect.? Skin-no obvious rashes, bruising, or erythema noted to the patient's area of pain. Extremities-upper extremities are warm with minimal edema and palpable pulses. Cervical- tenderness to palpation noted in the cervical spine and paraspinal musculature.? Pain is elicited with extension, and lateral rotation of the cervical spine.? Range of motion is slightly diminished due to pain. Shoulder - tender to palpation in left shoulder. Pain with abduction, external rotation of left shoulder. Coordination remains intact.? Gait remains non-antalgic. Assessment and Plan Assessment and Plan (1) Left shoulder pain: Qualifiers: Chronicity: chronic Qualified Code(s): M25.512 - Pain in left shoulder; G89.29 - Other chronic pain Plan 65yof who presents for in office injection. continues to have left shoulder pain, so will proceed with injection. follow up in 3 months. procedure: left shoulder injection medications: bupivacaine 0.25% 4cc, depomedrol 40mg I explained the details of the procedure to the patient including the risks, benefits, and alternatives.? We had an informed discussion.? The patient verbalized understanding and signed the consent form.? All questions were answered appropriately.? A time-out was performed.? After obtaining a comfortable seated position, the skin overlying the left shoulder was prepped with alcohol 3 times.? The sulcus between the head of the humerus and the acromion was identified.? The needle was inserted in a sterile manner 2 cm inferior and medial to the posterolateral corner of the acromion and was directed anteriorly toward the coracoid process. The contents of the syringe were gently injected without any resistance into the joint space after negative aspiration for blood or other bodily fluids.? The needle was removed and pressure was applied at the injection site to decrease the incidence of ecchymosis and hematoma formation.? A sterile bandage was applied.
== END 2025-09-25 13:01 | disposition home or self-care (01) ==
LOC: PM 13:01
PROVIDERS: PCP Family Medicine; Visit Provider Anesthesiology
DX: M25.512 Pain in left shoulder (principal); G89.29 Other chronic pain
CPT/HCPCS: 20610; J0665; J1010